=== PATIENT | male | born 1940 | race Caucasian/White ===

== ENCOUNTER → 2017-07-19 12:12 | Outpatient (CLI) | payer MEDICARE, BC, SELFPAY ==
[2017-07-19 14:59] LABS: Microalbumin:Creatinine Ratio 767.1 mg/g CRE (<30 mg/g CRE)
[2017-07-19 15:08] LABS: ALB/GLOB Ratio 0.9 RATIO (0.9-2.4); AST(SGOT) 17 U/L (15-37); Alanine Aminotransfer ALT/SGPT 26 U/L (16-61); Albumin, Serum 3.2 g/dL (3.2-5.0); Alkaline Phosphatase 114 U/L (45-117); Anion Gap 9 (5-15); BUN 21 mg/dL (7-18); BUN/Creat Ratio 18.4 RATIO (10-20); Calcium,Total 9.2 mg/dL (8.5-10.1); Chloride 108 mmol/L (98-107); Cholesterol 154 mg/dL (200); Creatinine, Serum 1.14 mg/dL (0.70-1.30); EST Glomerular Filtration Rate 66 mL/min (>60); Est Glom Filt Rate - Afr Amer 80 mL/min (>60); Ferritin 18 ng/mL (26-388); Globulin 3.6 g/dL (2.2-4.2); Glucose 146 mg/dL (74-106); High Density Lipoprotein 64 mg/dL; Iron Binding Capacity,Total 330 ug/dL (250-450); Magnesium 2.1 mg/dL (1.6-2.6); Potassium 3.5 mmol/L (3.5-5.1); Protein, Total 6.8 g/dL (6.4-8.2); Sodium Level 142 mmol/L (136-145); Triglycerides 222 mg/dL; Very Low Density Lipoprotein 44 mg/dL (5-40)
[2017-07-20 09:49] LABS: Vitamin B12 852 pg/mL (211-911)
== END ==
PROVIDERS: Family Provider Family Medicine; PCP Family Medicine; Visit Provider Family Medicine
DX: I10 Essential (primary) hypertension (principal); G25.81 Restless legs syndrome
CPT/HCPCS: 36415; 80053; 80061; 82043; 82570; 82607; 82728; 82746; 83550; 83735; 84443

== ENCOUNTER → 2017-10-02 13:09 | Outpatient (CLI) | payer MEDICARE, BC, SELFPAY ==
--- NOTE | 2017-10-02 13:28 | MRI_ITS ---
STUDY: MRI LUMBAR SPINE WITHOUT CONTRAST REASON FOR EXAM: Male, 77 years old. Low back pain and bilateral toe burning. TECHNIQUE: Standardized fat and water weighted pulse sequences were obtained in the sagittal and axial planes. COMPARISON: Radiographs of the lumbar spine dated October 22, 2015 and MRI of lumbar spine dated April 20, 2010. FINDINGS: T12-L1: There is mild annular disk bulge and osteophyte complex. There is mild degenerative arthropathy of the facet joints. Bilateral neuroforamina are narrowed without MR evidence for nerve impingement. There is no significant central canal stenosis. There is abnormal heterogeneous signal within the L1 vertebral body. This has both increased and decreased T2 signal and increased T1 signal. This may represent a mildly complex hemangioma. This appears to have been present on the previous MRI as well. Normal lumbar lordosis. There is no substantial scoliosis. Normal conus medullaris that terminates at the L1 level. L1-2: There is mild annular disk bulge and osteophyte complex. There is mild degenerative arthropathy of the facet joints. Bilateral neuroforamina are narrowed without MR evidence for nerve impingement. There is no significant central canal stenosis. L2-3: There is mild annular disk bulge and osteophyte complex. There is mild degenerative arthropathy of the facet joints. Bilateral neuroforamina are narrowed without MR evidence for nerve impingement. There is mild central canal stenosis. L3-4: There is a broad central disc protrusion. There is moderate acquired canal stenosis with possible impingement of cauda equina. There is mild degenerative arthropathy of facet joints. Neural foramina are moderately narrowed with questionable impingement of the L3 nerve roots at the neural foramina. L4-5: There is a broad central disc protrusion with mild central acquired canal stenosis. There is mild annular disk bulge and osteophyte complex. There is mild degenerative arthropathy of the facet joints. Bilateral neuroforamina are narrowed without MR evidence for nerve impingement. There is no significant central canal stenosis. L5-S1: There is mild annular disk bulge and osteophyte complex. There is mild degenerative arthropathy of the facet joints. Bilateral neuroforamina are narrowed with potential impingement of the right L5 nerve root at the neural foramen. There is no significant central canal stenosis. Normal visualized sacral ala. Normal visualized paraspinous soft tissue structures. There appears to be multiple left-sided renal cysts with largest measuring approximately 1.8 cm in greatest dimension. MRI/Spine Lumbar (Routine) IMPRESSION: 1. 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 This has changed in appearance since the previous MRI. 2. 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 Electronically Signed: Alexandria Truong MD at 6:06 EDT , Service support ,
== END ==
PROVIDERS: Family Provider Family Medicine; PCP Family Medicine; Visit Provider Anesthesiology Pain Medicine
DX: M54.5 Low back pain (principal); M79.606 Pain in leg, unspecified; R29.898 Other symptoms and signs involving the musculoskeletal system
CPT/HCPCS: 72148

== ENCOUNTER 2017-11-12 22:07 | Emergency (ER) | payer MEDICARE, BC, SELFPAY ==
[2017-11-12 22:08] VITALS: BP 148/93; PULSE 87; RESP 16; TEMP 36.9; O2SAT 98; BMI 27.7
--- NOTE | 2017-11-12 22:22 | EKG12_ITS ---
Test Reason : EDEMA Blood Pressure : / mmHG Vent. Rate : 072 BPM Atrial Rate : 072 BPM P-R Int : 172 ms QRS Dur : 086 ms QT Int : 376 ms P-R-T Axes : 056 043 060 degrees QTc Int : 411 ms Normal sinus rhythm Normal ECG Confirmed by MARÍA CALDERA, TIN ([id number]), purchase request editor JACEY HYMAN ([id number]) on 11/15/2017 2:38:22 PM Referred By: Confirmed By:TIN DANIEL MD
--- NOTE | 2017-11-12 22:25 | RAD_ITS ---
STUDY: X-RAY CHEST REASON FOR EXAM: Male, 77 years old. Chest pain TECHNIQUE: Single AP portable view of the chest. COMPARISON: 01/24/2017. FINDINGS: The lungs are clear and hyper expanded. There is no demonstrated pleural abnormality. Normal size heart. Normal mediastinum and hailey. Normal visualized pulmonary arteries. Normal visualized aortic arch and descending thoracic aorta. Normal visualized thoracic spine. Normal visualized ribs, clavicles, and shoulders. There is no demonstrated abnormality of the visualized soft tissue structures of the upper abdomen. RAD/Chest 1 View (Portable) IMPRESSION: Stable hyperinflation. No acute infiltrate. Electronically Signed: Axel Atkinson DO at 23:07 EDT , Service support ,
--- NOTE | 2017-11-12 22:29 | ED.DCSUM_ITS ---
- ER Visit Summary Date of Service: 11/12/17 Chief Complaint: Bilateral lower extremity swelling History of Present Illness: The patient is a 77 M presenting with bilateral lower extremity swelling. He states this has been ongoing for the past 3 days. He has a history of previous peripheral edema but it has never been this bad. He was taking Lasix previously. He was on Lasix 20 mg once a day. He ran out of his Lasix on Sunday. He then started taking Hygroton which he had left over from when he used to take it before he had started the Lasix. He has shortness of breath with exertion. He denies chest pain. Denies fever. Denies other complaints. Physical Examination: Vitals are stable. Patient is afebrile. Alert no acute distress. HEENT exam is unremarkable. Neck is supple. Lungs are clear and equal bilaterally. Heart is regular rate and rhythm. Abdomen is soft nontender nondistended. Extremities symmetric edema, nontender, normal distal pulse Skin is warm and dry. No focal neurologic deficit. Remainder of exam is unremarkable. Emergency Department Course and Treatment: CBC, chemistries unremarkable other than creatinine 1.35. Troponin is negative. EKG sinus rate is 72 unchanged from previous. Chest x-ray is no acute process. Bilateral venous Dopplers normal. Patient was able to ambulate in the ED with a pulse ox of 94% on room air. He was given Lasix in the emergency department. He is advised to follow- up with his primary care physician. Advised return to ED if worsening complaints. Disposition: Discharge home Impression: Peripheral edema This note was generated with [employer] dictation software. It may contain incorrect words, spelling, and punctuation that were not noted in review of the chart prior to signing ED Disposition - Plan for ED Patient: Chief Complaint: Edema Instructions: ED Leg Swelling Bilateral Prescriptions: Furosemide [Lasix] 20 mg PO DAILY #14 tablet Referrals: Kevon Harrell MD [Primary Care Provider] -
--- NOTE | 2017-11-12 22:30 | US_ITS ---
STUDY: VENOUS DOPPLER ULTRASOUND - BILATERAL LOWER EXTREMITIES REASON FOR EXAM: Male, 77 years old. BILAT LEG EDEMA/ SWELLING TECHNIQUE: Ultrasound evaluation of the deep vein system to include rosen-scale imaging and compression was performed. Rosen-scale imaging and Doppler sonographic evaluation, including duplex spectral analysis and qualitative color flow sonography, was performed. COMPARISON: None. FINDINGS: RIGHT LEG Common Femoral Vein: Normal compression, spontaneity and augmentation. Normal color Doppler. Common Femoral Vein/Greater Saphenous Junction: Normal compression, spontaneity and augmentation. Normal color Doppler. Deep Femoral Vein: Normal compression, spontaneity and augmentation. Normal color Doppler. Femoral Proximal: Normal compression, spontaneity and augmentation. Normal color Doppler. Femoral Middle: Normal compression, spontaneity and augmentation. Normal color Doppler. Femoral Distal: Normal compression, spontaneity and augmentation. Normal color Doppler. Popliteal Vein: Normal compression, spontaneity and augmentation. Normal color Doppler. Posterior Tibial Vein: Normal compression, spontaneity and augmentation. Normal color Doppler. Peroneal Vein: Normal compression, spontaneity and augmentation. Normal color Doppler. LEFT LEG Common Femoral Vein: Normal compression, spontaneity and augmentation. Normal color Doppler. Common Femoral Vein/Greater Saphenous Junction: Normal compression, spontaneity and augmentation. Normal color Doppler. Deep Femoral Vein: Normal compression, spontaneity and augmentation. Normal color Doppler. Femoral Proximal: Normal compression, spontaneity and augmentation. Normal color Doppler. Femoral Middle: Normal compression, spontaneity and augmentation. Normal color Doppler. Femoral Distal: Normal compression, spontaneity and augmentation. Normal color Doppler. Popliteal Vein: Normal compression, spontaneity and augmentation. Normal color Doppler. Posterior Tibial Vein: Normal compression, spontaneity and augmentation. Normal color Doppler. Peroneal Vein: Normal compression, spontaneity and augmentation. Normal color Doppler. US/Venous Duplex Imag/Tristin Extrem IMPRESSION: Normal venous Doppler ultrasound of the bilateral lower extremities. Electronically Signed: Marlon Cruz MD at 23:22 EDT , Service support ,
[2017-11-12 23:00] VITALS: BP 164/85; PULSE 76; RESP 14; O2SAT 96
[2017-11-12 23:00] LABS: Absolute Lymphocyte Count 3.25 X10^3/ul (0.83-4.51); Absolute Neutrophil Count 6.1 X10^3/uL (2.0-7.7); Basophil# 0.05 X10^3/uL; Basophil% 0.5 % (0-1); Eosinophils% 1.9 % (0-5); Hematocrit 44.1 % (40-54); Hemoglobin 15.2 g/dl (13.0-16.5); Lymphocyte # 3.25 X10^3/ul (4.0); Lymphocyte % 30.2 % (19-41); Mean Corp Hgb Conc 34.5 g/gl (32-36); Mean Corpuscular Hgb 30.5 pg (27.0-32.0); Mean Corpuscular Volume 88.6 fL (80-94); Mean Platelet Vol. 10.2 fl (6.2-12.0); Monocyte# 1.13 X10^3/uL; Monocyte% 10.5 % (0-10); Neutrophil % 56.6 % (47-70); Platelet Count 199 K/mm3 (150-450); RBC Distribution Width SD 51.1 fl (35.1-43.9); Red Blood Count 4.98 M/mm3 (4.6-6.2); White Blood Count 10.8 K/mm3 (4.4-11.0)
[2017-11-12 23:01] LABS: POSITIVE COUNT NO; POSITIVE DIFFERENTIAL NO; POSITIVE MORPHOLOGY NO
[2017-11-12 23:14] LABS: Anion Gap 5 (5-15); BUN 16 mg/dL (7-18); BUN/Creat Ratio 11.9 RATIO (10-20); Calcium,Total 9.5 mg/dL (8.5-10.1); Chloride 107 mmol/L (98-107); Creatinine, Serum 1.35 mg/dL (0.70-1.30); EST Glomerular Filtration Rate 54 mL/min (>60); Est Glom Filt Rate - Afr Amer 66 mL/min (>60); Glucose 85 mg/dL (74-106); Potassium 3.6 mmol/L (3.5-5.1); Sodium Level 142 mmol/L (136-145)
[2017-11-12 23:48] VITALS: O2SAT 95
--- NOTE | 2017-11-13 00:28 | ED.DEP ---
ED Disposition - Plan for ED Patient: Chief Complaint: Edema Instructions: ED Leg Swelling Bilateral Prescriptions: Furosemide [Lasix] 20 mg PO DAILY #14 tablet Referrals: Kevon Harrell MD [Primary Care Provider] -
[2017-11-13 00:41] LABS: BNP,B-Type NATRIURETIC PEPTIDE 19.7 pg/mL (0-100)
[2017-11-13] MEDS: Furosemide 20 MG Tablet PO (00:41)
[2017-11-13 00:42] VITALS: BP 141/82; PULSE 74; RESP 16; O2SAT 96
[2017-11-13 14:38] LABS: Albumin, Serum 3.4 g/dL (3.2-5.0)
== END 2017-11-13 00:48 | disposition home or self-care (01) ==
LOC: ED 22:40
PROVIDERS: Emergency Provider Emergency Medicine; Family Provider Family Medicine; PCP Family Medicine
DX: R60.0 Localized edema (principal); I11.0 Hypertensive heart disease with heart failure; I50.9 Heart failure, unspecified; J44.9 Chronic obstructive pulmonary disease, unspecified; E78.00 Pure hypercholesterolemia, unspecified; Z85.118 Personal history of other malignant neoplasm of bronchus and lung; Z72.0 Tobacco use; Z79.51 Long term (current) use of inhaled steroids; Z79.82 Long term (current) use of aspirin; Z79.84 Long term (current) use of oral hypoglycemic drugs; Z79.899 Other long term (current) drug therapy
CPT/HCPCS: 71045; 80048; 82040; 83880; 84484; 85025; 93005; 93970; 99285

== ENCOUNTER → 2017-11-16 12:11 | Outpatient (CLI) | payer MEDICARE, BC, SELFPAY ==
[2017-11-16 13:44] LABS: Vitamin B12 676 pg/mL (211-911)
[2017-11-16 13:48] LABS: Anion Gap 9 (5-15); Chloride 104 mmol/L (98-107); Potassium 3.3 mmol/L (3.5-5.1); Sodium Level 141 mmol/L (136-145); Thyroid Stim Hormone (TSH) 1.17 uIU/mL (0.358-3.74)
[2017-11-23 02:40] LABS: Rapid Plasmin Reagin (RPR) NONREACTIVE (NONREACTIVE)
== END ==
PROVIDERS: Family Provider Family Medicine; PCP Family Medicine; Visit Provider Psychiatry & Neurology Neurology
DX: R41.3 Other amnesia (principal)
CPT/HCPCS: 36415; 80051; 82607; 84443; 86592

== ENCOUNTER → 2017-11-22 15:56 | Outpatient (CLI) | payer MEDICARE, BC, SELFPAY ==
--- NOTE | 2017-11-22 16:45 | MRI_ITS ---
STUDY: MRI BRAIN WITHOUT CONTRAST REASON FOR EXAM: Male, 77 years old. Memory loss for 10 years TECHNIQUE: Standardized multiplanar fat and water weighted pulse sequences were obtained. COMPARISON: None. FINDINGS: Mild atrophy and moderate periventricular white matter ischemic changes without mass effect or restricted diffusion. Small old lacunar infarct in left basal ganglia. Normal thalami. There is no extra-axial fluid accumulation. Normal flow voids within the major intracranial circulation suggesting patency by spin echo criteria. Normal sella turcica, pituitary gland, infundibular stalk, optic chiasm and hypothalamus. Normal tectal plate and pineal gland. Normal midbrain, casandra and medulla. Normal cerebellum. Normal basal cisterns. Normal bilateral temporal bones. Normal bilateral internal auditory canals. No demonstrated orbital abnormality, within the constraints of a routine brain study. Normal visualized paranasal sinuses. Normal calvarium and skull base. Normal visualized soft tissue structures. Normal visualized upper cervical spine. MRI/Brain without Contrast IMPRESSION: Mild atrophy and moderate periventricular white matter ischemic changes without evidence for acute infarct.. Small old left lacunar infarct Electronically Signed: Osman Viera MD at 17:14 EDT , Service support ,
== END ==
PROVIDERS: Family Provider Family Medicine; PCP Family Medicine; Visit Provider Psychiatry & Neurology Neurology
DX: R41.3 Other amnesia (principal); S06.0X9A Concussion with loss of consciousness of unspecified duration, initial encounter
CPT/HCPCS: 70551

== ENCOUNTER → 2018-02-21 07:35 | Outpatient (CLI) | payer MEDICARE, BC, SELFPAY ==
[2018-02-21 09:09] LABS: Absolute Lymphocyte Count 2.07 X10^3/ul (0.83-4.51); Absolute Neutrophil Count 5.1 X10^3/uL (2.0-7.7); Basophil# 0.05 X10^3/uL; Basophil% 0.6 % (0-1); Eosinophil# 0.15 X10^3/uL; Eosinophils% 1.8 % (0-5); Hematocrit 50.4 % (40-54); Lymphocyte # 2.07 X10^3/ul (4.0); Lymphocyte % 25.3 % (19-41); Mean Corp Hgb Conc 33.7 g/gl (32-36); Mean Corpuscular Hgb 30.3 pg (27.0-32.0); Mean Corpuscular Volume 89.8 fL (80-94); Monocyte# 0.84 X10^3/uL; Monocyte% 10.3 % (0-10); Neutrophil # 5.07 X10^3/uL (2.7-7.7); Neutrophil % 61.9 % (47-70); Platelet Count 210 K/mm3 (150-450); RBC Distribution Width CV 14.5 % (11.6-14.6); RBC Distribution Width SD 47.4 fl (35.1-43.9); Red Blood Count 5.61 M/mm3 (4.6-6.2); White Blood Count 8.2 K/mm3 (4.4-11.0)
[2018-02-21 09:12] LABS: Differential Indicated SCAN CRITERIA MET; POSITIVE COUNT NO; POSITIVE DIFFERENTIAL NO; POSITIVE MORPHOLOGY YES
[2018-02-21 09:37] LABS: Vitamin B12 623 pg/mL (211-911)
[2018-02-21 10:11] LABS: Ferritin 36 ng/mL (26-388); Iron Binding Capacity,Total 284 ug/dL (250-450)
== END ==
PROVIDERS: Family Provider Family Medicine; PCP Family Medicine; Referring Provider Family Medicine; Visit Provider Family Medicine
DX: D51.8 Other vitamin B12 deficiency anemias (principal)
CPT/HCPCS: 36415; 82607; 82728; 82746; 83550; 85025

== ENCOUNTER → 2018-05-23 13:44 | Outpatient (CLI) | payer MEDICARE, BC, SELFPAY ==
[2018-05-23 15:39] LABS: Absolute Lymphocyte Count 2.76 X10^3/ul (0.83-4.51); Absolute Neutrophil Count 5.2 X10^3/uL (2.0-7.7); Basophil# 0.07 X10^3/uL; Basophil% 0.8 % (0-1); Eosinophil# 0.14 X10^3/uL; Eosinophils% 1.5 % (0-5); Hematocrit 49.4 % (40-54); Hemoglobin 16.8 g/dl (13.0-16.5); Lymphocyte # 2.76 X10^3/ul (4.0); Lymphocyte % 30.2 % (19-41); Mean Corpuscular Hgb 30.6 pg (27.0-32.0); Mean Platelet Vol. 11.6 fl (6.2-12.0); Monocyte# 0.91 X10^3/uL; Neutrophil # 5.24 X10^3/uL (2.7-7.7); Neutrophil % 57.3 % (47-70); Platelet Count 215 K/mm3 (150-450); RBC Distribution Width CV 15.4 % (11.6-14.6); Red Blood Count 5.49 M/mm3 (4.6-6.2); White Blood Count 9.1 K/mm3 (4.4-11.0)
[2018-05-23 15:40] LABS: POSITIVE COUNT NO; POSITIVE DIFFERENTIAL NO; POSITIVE MORPHOLOGY NO
[2018-05-23 15:58] LABS: ALB/GLOB Ratio 1.2 RATIO (0.9-2.4); AST(SGOT) 18 U/L (15-37); Alanine Aminotransfer ALT/SGPT 26 U/L (16-61); Albumin, Serum 3.7 g/dL (3.2-5.0); Alkaline Phosphatase 123 U/L (45-117); Anion Gap 10 (5-15); BUN 18 mg/dL (7-18); BUN/Creat Ratio 17.1 RATIO (10-20); Calcium,Total 9.6 mg/dL (8.5-10.1); Chloride 106 mmol/L (98-107); Creatinine, Serum 1.05 mg/dL (0.70-1.30); EST Glomerular Filtration Rate 72 mL/min (>60); Est Glom Filt Rate - Afr Amer 88 mL/min (>60); Ferritin 37 ng/mL (26-388); Glucose 87 mg/dL (74-106); Magnesium 2.3 mg/dL (1.6-2.6); Potassium 3.8 mmol/L (3.5-5.1); Protein, Total 6.7 g/dL (6.4-8.2); Sodium Level 145 mmol/L (136-145)
[2018-05-30 10:11] LABS: 24HR. Urine Creatinine 1.42 g/24 HR (0.90-2.10)
[2018-06-05 09:00] LABS: 24 Hour Urine Protein 851.9 mg/24HR (<150 MG/24HR); 24HR. UA Prot. Total Volume 925 mL; Urine Protein (24 Hour) 92.1 mg/dL (<11.9)
== END ==
PROVIDERS: Family Provider Family Medicine; PCP Family Medicine; Visit Provider Family Medicine
DX: J44.9 Chronic obstructive pulmonary disease, unspecified (principal); G25.81 Restless legs syndrome; I10 Essential (primary) hypertension; E11.29 Type 2 diabetes mellitus with other diabetic kidney complication
CPT/HCPCS: 36415; 80053; 81050; 82043; 82570; 82728; 83735; 84156; 84443; 85025

== ENCOUNTER → 2018-05-30 08:58 | Outpatient (CLI) | payer MEDICARE, BC, SELFPAY | LOC: MFPLAB 08:59 → LABSPEC 09:00 | PROVIDERS: Family Provider Family Medicine; PCP Family Medicine; Visit Provider Family Medicine | DX: Z53.9 Procedure and treatment not carried out, unspecified reason (principal) ==

== ENCOUNTER 2018-06-26 19:07 | Inpatient (IN) | payer MEDICARE, BC, SELFPAY ==
[2018-06-26] VITALS (7 sets, daily range): BP systolic 102–165; BP diastolic 50–89; PULSE 88–110; RESP 14–20; TEMP 37.7–38.6; O2SAT 94–97; BMI 28.6; BMI 27.0
--- NOTE | 2018-06-26 19:39 | EKG12_ITS ---
Test Reason : PALPITATIONS Blood Pressure : / mmHG Vent. Rate : 104 BPM Atrial Rate : 104 BPM P-R Int : 250 ms QRS Dur : 082 ms QT Int : 312 ms P-R-T Axes : 077 059 078 degrees QTc Int : 410 ms Sinus tachycardia with 1st degree A-V block Otherwise normal ECG Confirmed by MARÍA CALDERA, TIN ([id number]), senior technical editor JACEY HYMAN ([id number]) on 07/02/2018 11:14:53 AM Referred By: SUN DUARTE Confirmed By:TIN DANIEL MD
--- NOTE | 2018-06-26 19:39 | RAD_ITS ---
STUDY: X-RAY CHEST REASON FOR EXAM: Male, 78 years old. Shortness of breath and cough. Fever x3 days TECHNIQUE: Single frontal view of the chest. COMPARISON: November 12, 2017 FINDINGS: Lungs are hyperaerated. There are increased interstitial markings. There is no demonstrated pleural abnormality. Normal size heart. Normal mediastinum and hailey. Normal visualized pulmonary arteries. Normal visualized aortic arch and descending thoracic aorta. Normal visualized thoracic spine. Normal visualized ribs, clavicles, and shoulders. There is no demonstrated abnormality of the visualized soft tissue structures of the upper abdomen. RAD/Chest 1 View (Portable) IMPRESSION: COPD Electronically Signed: Sam Gregory MD at 20:08 EST , Service support ,
--- NOTE | 2018-06-26 19:41 | ED.VISSUMM ---
- ER Visit Summary Date of Service: 06/26/18 Chief Complaint: Shortness of breath, cough History of Present Illness: The patient is a 78 M presenting with shortness of breath, cough. Patient states this started around 3 AM this morning. He complains of fever, shortness of breath, cough. He has diffuse myalgias. He did receive a flu shot this year. He has a history of COPD, not on home O2. He has a history of previous lung cancer. He states he finished radiation a few years ago. He is a smoker. He denies chest pain or abdominal pain Physical Examination: Vitals are stable. Temperature 101.4. alert no acute distress. HEENT exam dry mucous membranes Neck is supple. Lungs are wheezing bilaterally. Heart is regular rate and rhythm. Abdomen is soft nontender nondistended. Extremities are unremarkable. Skin is warm and dry. No rash No focal neurologic deficit. Remainder of exam is unremarkable. Emergency Department Course and Treatment: Patient given IV fluids, Tylenol, albuterol, Atrovent aerosols. CBC, chemistries unremarkable. Urinalysis shows 5-10 white blood cells. Urine culture was sent. Troponin is negative. Lactic acid 2.0. EKG is sinus tachycardia rate of 104. Chest x-ray shows COPD. Influenza was negative. Despite his negative influenza test, I feel he likely has influenza which is exacerbating his COPD. He continues to have wheezing following aerosol treatments. He was given Solu-Medrol IV. Discussed with the hospitalist for admission. Disposition: Admission Impression: COPD exacerbation, viral illness This note was generated with [employer] dictation software. It may contain incorrect words, spelling, and punctuation that were not noted in review of the chart prior to signing ED Disposition - Plan for ED Patient: Referrals: Kevon Harrell MD [Primary Care Provider] -
[2018-06-26] MEDS: Albuterol 2.5 MG/3 ML VIAL.NEB. INHALATION ×2 (19:49→20:25)
[2018-06-26] MEDS: Ipratropium/Albuterol Sulfate 3 ML AMPUL.NEB INHALATION (19:49)
[2018-06-26] MEDS: 0.9% Normal Saline 1,000 ML 999 ML IV (19:49)
[2018-06-26] MEDS: Acetaminophen 500 MG Tablet 1000 MG PO (19:49)
[2018-06-26 19:51] LABS: Absolute Lymphocyte Count 1.06 X10^3/ul (0.83-4.51); Absolute Neutrophil Count 6.6 X10^3/uL (2.0-7.7); Basophil# 0.08 X10^3/uL; Basophil% 0.9 % (0-1); Eosinophil# 0.06 X10^3/uL; Eosinophils% 0.7 % (0-5); Hematocrit 46.7 % (40-54); Hemoglobin 16.3 g/dl (13.0-16.5); Lymphocyte # 1.06 X10^3/ul (4.0); Lymphocyte % 11.9 % (19-41); Mean Corp Hgb Conc 34.9 g/gl (32-36); Mean Corpuscular Hgb 31.2 pg (27.0-32.0); Mean Corpuscular Volume 89.3 fL (80-94); Mean Platelet Vol. 11.6 fl (6.2-12.0); Monocyte# 1.08 X10^3/uL; Monocyte% 12.1 % (0-10); Neutrophil % 74.3 % (47-70); POSITIVE COUNT NO; POSITIVE DIFFERENTIAL NO; POSITIVE MORPHOLOGY NO; Platelet Count 190 K/mm3 (150-450); RBC Distribution Width CV 15.4 % (11.6-14.6); RBC Distribution Width SD 50.3 fl (35.1-43.9); Red Blood Count 5.23 M/mm3 (4.6-6.2); White Blood Count 8.9 K/mm3 (4.4-11.0)
[2018-06-26 20:08] LABS: Anion Gap 8 (5-15); BUN 18 mg/dL (7-18); BUN/Creat Ratio 13.8 RATIO (10-20); Chloride 105 mmol/L (98-107); EST Glomerular Filtration Rate 57 mL/min (>60); Est Glom Filt Rate - Afr Amer 68 mL/min (>60); Estimated Creatinine Clearance 46.08 ml/min; Glucose 135 mg/dL (74-106); Potassium 3.3 mmol/L (3.5-5.1); Sodium Level 141 mmol/L (136-145)
[2018-06-26 20:42] LABS: Bacteria 0 SEEN /hpf (None Seen); Mucous, Urine 0 SEEN /hpf (<or=2+); Red Blood Cells-Urine 0 SEEN /hpf (0-5); Squamous Epithelial Cells - UA 0 SEEN /hpf (0-5)
[2018-06-26 20:43] LABS: Color, Urine Yellow (Yellow); Glucose, Dipstick Normal (Normal); Ketone-Dipstick Negative (Negative); Leukocyte Esterase-Dipstick 100 /ul (Negative); Nitrite-Dipstick Negative (Negative); Occult Blood-Urine 25 /ul (Negative); Protein-Dipstick 100 mg/dl (Negative); Specific Gravity, Urine 1.015 (1.002-1.030); Urine Bilirubin Dipstick Negative (Negative); Urine Clarity Clear (Clear); Urine Urobilinogen Normal (Normal)
[2018-06-26 20:49] LABS: White Blood Cells 5-10 SEEN /hpf (0-5)
[2018-06-26] MEDS: MethylPREDNISolone 125 MG/2 ML Vial IV (21:29)
--- NOTE | 2018-06-26 21:30 | HP.PCM_ITS ---
Problem List (1) Viral syndrome Status: Acute (2) COPD exacerbation Status: Acute (3) Hypokalemia Status: Acute (4) Diabetes mellitus, type II Status: Chronic Qualifiers: Diabetes mellitus long-term insulin use: without long-term use Diabetes mellitus complication status: with unspecified complications Qualified Code(s): E11.8 - Type 2 diabetes mellitus with unspecified complications (5) Personal history of skin cancer Status: Chronic (6) Tobacco use Status: Chronic (7) COPD (chronic obstructive pulmonary disease) Status: Chronic Qualifiers: COPD type: unspecified COPD Qualified Code(s): J44.9 - Chronic obstructive pulmonary disease, unspecified (8) HLD (hyperlipidemia) Status: Chronic Qualifiers: Hyperlipidemia type: pure hypercholesterolemia Qualified Code(s): E78.00 - Pure hypercholesterolemia, unspecified; E78.0 - Pure hypercholesterolemia (9) HTN (hypertension) Status: Chronic Qualifiers: Hypertension type: essential hypertension Qualified Code(s): I10 - Essential (primary) hypertension (10) Stage 1 lung cancer, RUL mass Status: Chronic History of Present Illness Date of Admission: 06/26/18 Chief Complaint: Cough, Dyspnea, Headache, Myalgia, Arthralgia. The patient is a 78 y/o M w/ PMHx: Tobacco use, Chronic COPD, History of Lung Cancer in remission, HTN, HLD, Diabetes mellitus type II, History Thyroid Nodules who presents to the [facility] ED on 06/26/18 with history of recent onset upper respiratory symptoms starting approximately 4-5 days prior however progressively worsening and is notable onset arthralgias, myalgias, headache, worsened congestion and dyspnea with wheezing as well as onset fever and chills starting approximately 3 AM on day of ED presentation. Work-up in the ED included T 99.9, heart rate 104, BP 102/50, respiratory rate 20, 95% on 2 L nasal cannula, CBC with WC 8.9, hemoglobin 16.3, platelet 190 without market shift, BMP with potassium 3.3, glucose 135, lactic acid 2.0, troponin < 0.015, UA not acute findings, chest x-ray with chronic changes with no acute cardiopulmonary findings, negative rapid influenza with pending respiratory viral panel. In the ED patient administered normal saline, Solu-Medrol, DuoNeb and albuterol therapies. Past Medical History Past Medical History (Chronic Problems): Chronic Problems (Last Updated 09/26/17 @ 12:38 by Cesilia Stephens) Diabetes mellitus, type II (Chronic) Cheek mass (Chronic) 6 mm soft tissue mass left supramedial cheek by lateral nose Personal history of skin cancer (Chronic) Smoker (Chronic) Tobacco use (Chronic) COPD (chronic obstructive pulmonary disease) (Chronic) HLD (hyperlipidemia) (Chronic) HTN (hypertension) (Chronic) Stage 1 lung cancer, RUL mass (Chronic) Smoker (Chronic) History of basal cell carcinoma (Chronic) BCC left upper neck by earlobe (Chronic) Medical History: Medical History (Last Updated 09/26/17 @ 12:38 by Cesilia Stephens) Actinic keratosis L57.0 SUPERIOR HELICAL RIM RIGHT EAR Arthritis M19.90 COPD (chronic obstructive pulmonary disease) J44.9 Diabetes mellitus E11.9 Edema R60.9 Fever blister B00.1 History of alcohol abuse Z87.898 History of chicken pox Z86.19 Keratosis L57.0 PIGMENTED SEBORRHEIC KERATOSIS LEFT POSTERIOR EAR Kidney stones N20.0 Lung cancer C34.90 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 LEFT NASAL TIP LEFT SUPRAMEDIAL CHEEK LEFT UPPER NECK BY EARLOBE, MULTIFOCAL AND SUPERFICIAL Sinus problem J34.9 Stroke I63.9 Stroke I63.9 Tonsillitis J03.90 High blood pressure I10 Allergies BEE STINGS Allergy (Severe, Uncoded 06/26/18 19:14) Anaphylaxis Home Medications: Ambulatory Orders Medication Instructions Recorded Atorvastatin Calcium [Lipitor] 10 mg PO DAILY 12/22/13 Losartan/Hydrochlorothiazide 1 tab PO DAILY 12/22/13 [Hyzaar 50-12.5 Tablet] Metformin HCl [Glucophage] 500 mg PO DAILY 12/22/13 Multivitamins,Therapeutic 1 tab PO DAILY 12/22/13 [Multivitamin] Latanoprost 0.005% [Xalatan 1 drp LEFT EYE QHS 01/07/15 Opthalmic] Aspirin [Aspirin, Baby] 81 mg PO DAILY@0800 06/30/16 budesonide-formoterol HFA 160 2 puff INHALATION BID 09/26/17 mcg-4.5 mcg/actuation aerosol inhaler epinephrine 0.3 mg/0.3 mL 0.3 mg IM ONCE 09/26/17 injection, auto-injector ropinirole 1 mg tablet 1.5 mg PO DINNER 09/26/17 Ropinirole HCl [Requip] 3 mg PO BID 11/12/17 Albuterol IH (ProAir) [Proair Hfa] 2 puff INHALATION 4X/DAY 06/26/18 Furosemide [Lasix] 20 mg PO DAILY 06/26/18 Magnesium Oxide [Mag-Ox 400] 400 mg PO DAILY 06/26/18 Potassium Citrate [Urocit-K] 5 meq PO DAILY 06/26/18 Surgical History: Surgical History (Last Updated 09/26/17 @ 14:59 by Cesilia Stephens) HYDROCELE History of basal cell carcinoma excision Z98.890, Z85.828 RECONSTRUCTION 10 MM BASAL CELL CARCINOMA WOUND DEFORMITY LEFT NASAL TIP WITH BILOBED TRANSPOSITION SKIN FLAP RECONSTRUCTION - 03/01/09 EXCISION 1.8 CM PIGMENTED BASAL CELL CARCINOMA LEFT UPPER NECK BY EARLOBE WITH RHOMBOID TRANSPOSITION SKIN FLAP RECONSTRUCTION (24.5 CM2) - 01/14/15 History of excision of lesion Z98.890, Z87.2 EXCISION 7 MM PIGMENTED LESION LEFT NASAL TIP AND EXCISION 12 MM LESION LEFT LATERAL ABDOMINAL WALL WITH 4 CM CLOSURE 02/22/09 EXCISION 6 MM PIGMENTED LESION LEFT SUPRAMEDIAL CHEEK WITH 2 CM LAYERED CLOSURE AND EXCISION 5 MM PIGMENTED LESION LEFT POSTERIOR EAR WITH 15 MM LAYERED CLOSURE AND PARTIAL EXCISION 18 MM PIGMENTED LESION LEFT UPPER NECK BY EARLOBE WITH 3 CM LAYERED CLOSURE AND INTRADERMAL EXCISION 6 MM ACTINIC LESION SUPERIOR HELICAL RIM RIGHT EAR 08/27/14 History of eye surgery Z98.890 History of right knee surgery Z98.890 Sebaceous cyst of right axilla L72.3 Soft tissue mass M79.9 EXCISION SOFT TISSUE MASS RIGHT UPPER BACK Surgical History: - - R hydrocele surgery, several basal cell CA skin removal, removal of cyst right knee. Psychiatric History: No pertinent psych hx Lives: Alone Smoking Status: Current every day smoker - Patient continues to smoke 1 pack/day cigarette tobacco usage. Tobacco Use: Cigarettes Alcohol: None - Eyes any alcohol use or history but in prior notes possible alcohol abuse noted. Drugs: None - *Family History Maternal Family History: Family History (Last Updated 09/26/17 @ 12:19 by Cesilia Stephens) Father Heart disease Hypertension CVA (cerebral vascular accident) Grandmother Cancer Grandfather CVA (cerebral vascular accident) History Items: COPD Paternal Family History: Family History (Last Updated 09/26/17 @ 12:19 by Cesilia Stephens) Father Heart disease Hypertension CVA (cerebral vascular accident) Grandmother Cancer Grandfather CVA (cerebral vascular accident) History Items: Heart Disease, Hypertension, Stroke Review of Systems Constitutional: Reports: Anorexia, Chills, Fever, Malaise, Weakness, Fatigue. Denies: Weight Change HEENT: Reports: Head Aches, Post Nasal Drip, Sinus Congestion, Sinus Drainage, Sore Throat Cardiovascular: Denies: Chest Pain, Palpitations Respiratory: Reports: Cough, Shortness of Breath, Shortness of breath at rest, Shortness of breath upon exertion, Sputum production, Wheezing Gastrointestinal: Denies: Abdominal Pain, Nausea, Vomiting Genitourinary: Denies: Dysuria Musculoskeletal: Reports: Joint Pain, Muscle pain. Denies: Joint Tenderness Skin: Reports: Skin Changes. Denies: Rash, Wounds Neurological: Denies: Numbness, Tingling, Focal weakness Psychiatric: Denies: Anxiety, Depression, Homicidal Ideations, Suicidal Ideations Hematologic/ Lymphatic: Denies: Easy Bruising, Easy Bleeding VTE Information - Inpt Only VTE Present on Admission: No VTE Mechan Device Prophylaxis: SCD's VTE Pharm Prophylaxis ordered?: Yes Patient Problems: Active and Suspected Problems (Last Updated 09/26/17 @ 12:38 by Cesilia Stephens) Viral syndrome (Acute) COPD exacerbation (Acute) Hypokalemia (Acute) Subjective: Seated upright in ED bed, fatigued appearance, no acute distress. Objective: Physical Examination: General: awake, alert, oriented x 3 and cooperative, seated upright in the ED bed in no apparent distress, fatigued and ill-appearing. Skin: normal color, turgor, no icterus, cyanosis. HEENT: AT/NC, EOMI, PERRLA, dry MM, no carotid bruits or JVD noted. Lungs: Diffusely diminished breath sounds, mildly rhonchorous, and expiratory wheezing noted, moderate effort. Heart: Regular rate and rhythm; no gallop, rub audible. Abdomen: soft, NTTP, ND, normal BS, no HSM. Extremities: no cyanosis, clubbing, bilateral lower extremity mild ankle edema. Neurological: patient awake, alert, oriented x 3; cognitive function intact; pupils equally reactive to light and accomodation; cranial nerves II-XII grossly normal, moving all 4 extremities, no focal deficits, strength moderately to severely globally decreased secondary to acute presentation. Psychiatric: affect appears fatigued, no acute evidence of depressive or anxiety feelings. - Physical Exam Vital Signs Temp Pulse Resp BP Pulse Ox 99.9 F H 104 H 14 145/87 H 95 06/26/18 21:00 06/26/18 21:00 06/26/18 21:00 06/26/18 20:26 06/26/18 21:00 Oxygen Flow Rate (L/min) 2 Oxygen Delivery Method Nasal Cannula Weight: 193 lb 12.581 oz Body Mass Index (BMI) 28.6 Finger Stick Blood Glucose 115 Microbiology Past 72 Hours 06/26/18 19:50 Influenza Types A,B Direct FA (ASHLEY) - Final Mucosa - Nose Laboratory Tests Past 24 Hrs 06/26/18 06/26/18 06/26/18 19:10 19:10 19:10 WBC 8.9 RBC 5.23 Hgb 16.3 Hct 46.7 MCV 89.3 MCH 31.2 MCHC 34.9 RDW 15.4 H RDW Differential 50.3 H Plt Count 190 MPV 11.6 Immature Gran % (Auto) 0.100 Neut % (Auto) 74.3 H Lymph % (Auto) 11.9 L [place] % (Auto) 12.1 H Eos % (Auto) 0.7 Baso % (Auto) 0.9 Absolute Neuts (auto) 6.6 Absolute Lymphs (auto) 1.06 Total Counted Not Reportable Sodium 141 Potassium 3.3 L Chloride 105 Carbon Dioxide 28.0 Anion Gap 8 BUN 18 Creatinine 1.30 Estim Creat Clear Calc 46.08 Est GFR (MDRD) Af Amer 68 Est GFR (MDRD) Non-Af 57 L BUN/Creatinine Ratio 13.8 Glucose 135 H Lactic Acid 2.0 Calcium 9.0 Troponin I < 0.015 Urine Color Urine Clarity Urine pH Ur Specific [place] Urine Protein Urine Glucose (UA) Urine Ketones Urine Occult Blood Urine Nitrite Urine Bilirubin Urine Urobilinogen Ur Leukocyte Esterase Urine RBC Urine WBC Ur Squamous Epith Cells Urine Bacteria Urine Mucus 06/26/18 20:26 WBC RBC Hgb Hct MCV MCH MCHC RDW RDW Differential Plt Count MPV Immature Gran % (Auto) Neut % (Auto) Lymph % (Auto) [place] % (Auto) Eos % (Auto) Baso % (Auto) Absolute Neuts (auto) Absolute Lymphs (auto) Total Counted Sodium Potassium Chloride Carbon Dioxide Anion Gap BUN Creatinine Estim Creat Clear Calc Est GFR (MDRD) Af Amer Est GFR (MDRD) Non-Af BUN/Creatinine Ratio Glucose Lactic Acid Calcium Troponin I Urine Color Yellow Urine Clarity Clear Urine pH 7.0 Ur Specific [place] 1.015 Urine Protein 100 H Urine Glucose (UA) Normal Urine Ketones Negative Urine Occult Blood 25 H Urine Nitrite Negative Urine Bilirubin Negative Urine Urobilinogen Normal Ur Leukocyte Esterase 100 H Urine RBC 0 SEEN Urine WBC 5-10 SEEN Ur Squamous Epith Cells 0 SEEN Urine Bacteria 0 SEEN Urine Mucus 0 SEEN Assessment/Plan All Active Problems (Last Updated 09/26/17 @ 12:38 by Cesilia Stephens) Viral syndrome (Acute) COPD exacerbation (Acute) Hypokalemia (Acute) Shortness of breath (Acute) The patient is a 78 y/o M w/ PMHx: Tobacco use, Chronic COPD, History of Lung Cancer in remission, HTN, HLD, Diabetes mellitus type II, History Thyroid Nodules who presents to the [facility] ED on 06/26/18 with history of recent onset upper respiratory symptoms starting approximately 4-5 days prior however progressively worsening and is notable onset arthralgias, myalgias, headache, worsened congestion and dyspnea with wheezing as well as onset fever and chills starting approximately 3 AM on day of ED presentation. (1) Acute on chronic COPD exacerbation suspected secondary to Acute Viral Syndrome: Work-up in the ED included T 99.9, heart rate 104, BP 102/50, respiratory rate 20, 95% on 2 L nasal cannula, CBC with WC 8.9, hemoglobin 16.3, platelet 190 without market shift, BMP with potassium 3.3, glucose 135, lactic acid 2.0, troponin < 0.015, UA not acute findings, chest x-ray with chronic changes with no acute cardiopulmonary findings, negative rapid influenza with pending respiratory viral panel. Will admit to [facility], continue to hydrate, maintain on oxygen with wean as tolerated to room air, continue ATC duonebs, PRN albuterol, IV methylprednisolone, HOB, IS parameters. (2) Hypokalemia: Admission K+ 3.3, supplementation given, repeat level in AM. (3) Diabetes mellitus type II: Hold oral home regimen, ADA diet, accu checks w/ ISS. (4) Tobacco Abuse: Encouraged cessation, inpatient consultation per RT, NR if desired. (5) Hypertension: Given presentation with recent poor oral intake and possibly acute viral syndrome will temporarily hold diuretics, continue to hydrate, in interim PRN hydralazine. (6) Hyperlipidemia: Continue home statin regimen. (7) History of lung cancer: Stable, remission. (8) DVT prophylaxis: SCD, Lovenox. Code Visit Inpatient E&M: 93846 Init Hosp L3
[2018-06-26] MEDS: 0.9% NaCl Peripheral Flush Adult/Peds IV (23:45)
[2018-06-26] MEDS: 0.9% Normal Saline 1,000 ML 125 ML IV (23:45)
[2018-06-26 23:46] LABS: Reflex Lactate? Y
[2018-06-26 23:47] LABS: Magnesium 1.9 mg/dL (1.6-2.6)
[2018-06-26 23:51] LABS: Bedside Glucose 125 mg/dL (70-110)
[2018-06-27] VITALS (13 sets, daily range): BP systolic 93–119; BP diastolic 56–63; PULSE 81–94; RESP 16–20; TEMP 36.6–36.8; O2SAT 94–98
[2018-06-27] MEDS: Ipratropium/Albuterol Sulfate 3 ML AMPUL.NEB INHALATION ×6 (00:34→23:11)
[2018-06-27 00:54] LABS: Lactic Acid 1.8 mmol/L (0.4-2.0)
[2018-06-27] MEDS: Insulin Lispro 100 UNIT/ML INSULN.PEN SC ×2 (06:27→11:09)
[2018-06-27 06:46] LABS: Bedside Glucose 168 mg/dL (70-110)
[2018-06-27 07:09] LABS: Absolute Lymphocyte Count 0.36 X10^3/ul (0.83-4.51); Absolute Neutrophil Count 5.2 X10^3/uL (2.0-7.7); Basophil# 0.01 X10^3/uL; Basophil% 0.2 % (0-1); Hematocrit 43.4 % (40-54); Hemoglobin 14.4 g/dl (13.0-16.5); Lymphocyte # 0.36 X10^3/ul (4.0); Lymphocyte % 6.4 % (19-41); Mean Corp Hgb Conc 33.2 g/gl (32-36); Mean Corpuscular Volume 90.4 fL (80-94); Mean Platelet Vol. 11.6 fl (6.2-12.0); Monocyte# 0.08 X10^3/uL; Monocyte% 1.4 % (0-10); Neutrophil # 5.17 X10^3/uL (2.7-7.7); Neutrophil % 91.8 % (47-70); Platelet Count 184 K/mm3 (150-450); RBC Distribution Width CV 15.3 % (11.6-14.6); RBC Distribution Width SD 50.5 fl (35.1-43.9); White Blood Count 5.6 K/mm3 (4.4-11.0)
[2018-06-27 07:12] LABS: Differential Indicated SCAN CRITERIA MET; POSITIVE COUNT NO; POSITIVE DIFFERENTIAL YES; POSITIVE MORPHOLOGY NO
[2018-06-27 07:14] LABS: Anion Gap 10 (5-15); BUN 22 mg/dL (7-18); BUN/Creat Ratio 16.1 RATIO (10-20); Calcium,Total 8.6 mg/dL (8.5-10.1); Chloride 111 mmol/L (98-107); Creatinine, Serum 1.37 mg/dL (0.70-1.30); EST Glomerular Filtration Rate 53 mL/min (>60); Est Glom Filt Rate - Afr Amer 64 mL/min (>60); Estimated Creatinine Clearance 43.72 ml/min; Glucose 173 mg/dL (74-106); Sodium Level 144 mmol/L (136-145)
--- NOTE | 2018-06-27 07:30 | PN_ITS ---
Patient Problems: Active and Suspected Problems (Last Updated 09/26/17 @ 12:38 by Cesilia Stephens) Viral syndrome (Acute) COPD exacerbation (Acute) Hypokalemia (Acute) Subjective: The patient is a 78-year-old male with a past medical history of tobacco dependence, COPD, history of lung cancer stage 1 with a RUL mass in remission, hypertension, hyperlipidemia, diabetes mellitus type 2, thyroid nodules and skin cancer who presented to the emergency department at [facility] on 06/26/2018 complaining of cough, shortness of breath, headache and myalgias. Vital signs in the ER were temp 99.9, heart rate 104, blood pressure 102/50, respiratory rate 20 and he was 95% saturated on a 2 L nasal cannula. White blood cell count was normal at 8.9 and hemoglobin was 16.3. Potassium was mildly decreased at 3.5 and lactic acid was 2. Troponin was less than 0.015. Chest x-ray showed chronic changes with no acute cardiopulmonary findings. The nodule in the RUL was not mentioned but is apparent when comparing an old CXR to the CXR done on 06/26. Rapid influenza was negative. He was admitted to the hospital with a diagnosis of acute exacerbation of COPD secondary to acute viral syndrome. All events of the past 24 hours of been reviewed T-max is 101.4 and current temp is 98.3. Vital signs are stable and he is 98% saturated on 1 L nasal cannula currently. All lab was personally reviewed. White blood cell count is 5.6 with 91% neutrophils however he is on high-dose intravenous steroids. BNP shows potassium of 4, up from 3.3 at admission. BUN is 22 and the creatinine is 1.37, up from 1.3 at admission. Repeat lactic acid was 1.8. UA had 5-10 WBCs and culture is pending. Rapid influenza was negative. Respiratory panel was negative. Blood cultures and urine culture are pending. Sputum Gram stain and sputum culture are also pending. He does not know if the lung CA is small cell or non-small cell. He is seen and followed at the [facility] main campus. He has been treated with radiation. He could not have a resection to to chronic lung disease. States he is feeling better today. Objective: General: Alert, oriented ?3, cooperative, pleasant and appropriate, no apparent distress Neck: Supple, trachea midline, no enlarged cervical nodes, no enlarged supraclavicular nodes no nuchal rigidity Lungs: Diminished, symmetric chest expansion, not tachypneic, no conversational dyspnea, no accessory muscle use, rare rhonchi with no tight expiratory or inspiratory wheezing. Was observed walking to the bathroom and became mildly tachypneic. Heart: Regular rate and rhythm, normal S1, normal S2, no murmur, no gallop, no rub Abdomen: Soft, NT, ND, bowel sounds present Extremities: No clubbing, mild ankle edema, no cyanosis - Physical Exam Vital Signs Temp Pulse Resp BP Pulse Ox 98.3 F 83 18 119/63 98 06/27/18 05:21 06/27/18 05:21 06/27/18 05:21 06/27/18 05:21 06/27/18 05:21 Oxygen Flow Rate (L/min) 1 Oxygen Delivery Method Nasal Cannula Weight: 182 lb 15.739 oz Body Mass Index (BMI) 27.0 Finger Stick Blood Glucose 115 Intake and Output for Last 24 Hours 06/25/18 06/26/18 06/27/18 23:59 23:59 23:59 Intake Total 732 / 732 Balance 732 / 732 Microbiology Past 72 Hours 06/26/18 19:50 Influenza Types A,B Direct FA (ASHLEY) - Final Mucosa - Nose Laboratory Tests Past 24 Hrs 06/26/18 06/26/18 06/26/18 19:10 19:10 19:10 WBC 8.9 RBC 5.23 Hgb 16.3 Hct 46.7 MCV 89.3 MCH 31.2 MCHC 34.9 RDW 15.4 H RDW Differential 50.3 H Plt Count 190 MPV 11.6 Immature Gran % (Auto) 0.100 Neut % (Auto) 74.3 H Lymph % (Auto) 11.9 L [place] % (Auto) 12.1 H Eos % (Auto) 0.7 Baso % (Auto) 0.9 Absolute Neuts (auto) 6.6 Absolute Lymphs (auto) 1.06 Total Counted Not Reportable Sodium 141 Potassium 3.3 L Chloride 105 Carbon Dioxide 28.0 Anion Gap 8 BUN 18 Creatinine 1.30 Estim Creat Clear Calc 46.08 Est GFR (MDRD) Af Amer 68 Est GFR (MDRD) Non-Af 57 L BUN/Creatinine Ratio 13.8 Glucose 135 H Lactic Acid 2.0 Calcium 9.0 Magnesium Troponin I < 0.015 Urine Color Urine Clarity Urine pH Ur Specific [place] Urine Protein Urine Glucose (UA) Urine Ketones Urine Occult Blood Urine Nitrite Urine Bilirubin Urine Urobilinogen Ur Leukocyte Esterase Urine RBC Urine WBC Ur Squamous Epith Cells Urine Bacteria Urine Mucus 06/26/18 06/26/18 06/27/18 19:10 20:26 00:18 WBC RBC Hgb Hct MCV MCH MCHC RDW RDW Differential Plt Count MPV Immature Gran % (Auto) Neut % (Auto) Lymph % (Auto) [place] % (Auto) Eos % (Auto) Baso % (Auto) Absolute Neuts (auto) Absolute Lymphs (auto) Total Counted Sodium Potassium Chloride Carbon Dioxide Anion Gap BUN Creatinine Estim Creat Clear Calc Est GFR (MDRD) Af Amer Est GFR (MDRD) Non-Af BUN/Creatinine Ratio Glucose Lactic Acid 1.8 Calcium Magnesium 1.9 Troponin I Urine Color Yellow Urine Clarity Clear Urine pH 7.0 Ur Specific [place] 1.015 Urine Protein 100 H Urine Glucose (UA) Normal Urine Ketones Negative Urine Occult Blood 25 H Urine Nitrite Negative Urine Bilirubin Negative Urine Urobilinogen Normal Ur Leukocyte Esterase 100 H Urine RBC 0 SEEN Urine WBC 5-10 SEEN Ur Squamous Epith Cells 0 SEEN Urine Bacteria 0 SEEN Urine Mucus 0 SEEN 06/27/18 06/27/18 06:04 06:04 WBC 5.6 RBC 4.80 Hgb 14.4 Hct 43.4 MCV 90.4 MCH 30.0 MCHC 33.2 RDW 15.3 H RDW Differential 50.5 H Plt Count 184 MPV 11.6 Immature Gran % (Auto) 0.200 Neut % (Auto) 91.8 H Lymph % (Auto) 6.4 L [place] % (Auto) 1.4 Eos % (Auto) 0.0 Baso % (Auto) 0.2 Absolute Neuts (auto) 5.2 Absolute Lymphs (auto) 0.36 L Total Counted Pending Sodium 144 Potassium 4.0 Chloride 111 H Carbon Dioxide 23.0 Anion Gap 10 BUN 22 H Creatinine 1.37 H Estim Creat Clear Calc 43.72 Est GFR (MDRD) Af Amer 64 Est GFR (MDRD) Non-Af 53 L BUN/Creatinine Ratio 16.1 Glucose 173 H Lactic Acid Calcium 8.6 Magnesium Troponin I Urine Color Urine Clarity Urine pH Ur Specific [place] Urine Protein Urine Glucose (UA) Urine Ketones Urine Occult Blood Urine Nitrite Urine Bilirubin Urine Urobilinogen Ur Leukocyte Esterase Urine RBC Urine WBC Ur Squamous Epith Cells Urine Bacteria Urine Mucus POC Glucose 06/27/18 06/26/18 06:24 23:43 POC Glucose 168 H 125 H Medical Necessity - Tobacco Use Smoking Status: Current every day smoker - Patient continues to smoke 1 pack/day cigarette tobacco usage. Tobacco Use: Cigarettes Assessment/Plan All Active Problems (Last Updated 09/26/17 @ 12:38 by Cesilia Stephens) Viral syndrome (Acute) COPD exacerbation (Acute) Hypokalemia (Acute) Shortness of breath (Acute) Impressions 1. Acute exacerbation of COPD-likely due to upper respiratory tract infection 2. Chronic bronchitis 3. stage 1 lung CA in the RUL 4. Hypokalemia-resolved 5. Diabetes mellitus type 2 6. Tobacco dependence 7. Hypertension 8. Hyperlipidemia 9. Thyroid nodules-benign 10. Anxiety 11. Chronic renal failure stage III start Buspar to see if improving the anxiety helps him to stop smoking Smoking cessation counselling given Continue bronchodilators and intravenous steroids, may be able to transition to oral prednisone in the a.m. Ambulatory pulse ox on room air prior to discharge spent 45 minutes talking to the pt and answering all his questions and providing smoking cessation counseling and then an additional time talking with his son when he showed up near the end of my visit with his father. All his questions were answered. Code Visit Inpatient E&M: 65263 Subs Hosp L2
[2018-06-27] MEDS: 0.9% Normal Saline 1,000 ML 125 ML IV ×3 (07:44→23:11)
[2018-06-27] MEDS: Aspirin 81 MG TAB.CHEW PO (07:44)
[2018-06-27] MEDS: guaiFENesin 1,200 MG Tablet 1200 MG PO ×2 (09:45→21:17)
[2018-06-27] MEDS: Heparin Injection (Vial) 5,000 UNIT/ML VIAL 5000 UNIT SC ×2 (09:45→21:16)
[2018-06-27] MEDS: Losartan Potassium 50 MG Tablet PO (09:46)
[2018-06-27] MEDS: hydroCHLOROthiazide 12.5mg 12.5 MG PO (09:46)
[2018-06-27] MEDS: Pramipexole Di-HCl 1 MG Tablet 1.5 MG PO ×2 (09:46→21:16)
[2018-06-27 11:21] LABS: Bedside Glucose 221 mg/dL (70-110)
--- NOTE | 2018-06-27 11:40 | CASEMGMT ---
DEVORA LOVE LABORER GOLD LEAF CM to room to meet with patient for initial transition planning/care coordination assessment. DEVORA LOVE introduced self and role at [facility].? Pt voices understanding and consents to assessment at this time.? Pt resting in bed in no distress at this time.? Pt is A/O at this time and answers all questions appropriately.?? Care providers, pharmacy, and demographics verified at this time. PCP: Julio Cesar Specialists: Dr Hitchcock, oncologist @ [facility]. Dr Gordillo, Disc Ruler Operator @ [facility]. Preferred Pharmacy: [facility] Insurance: [employer] Prescription Benefit:? [employer] Living Will/HPOA:? Has both LW and HCPOA, who is pt's son, Darnell Martínez Jr. Both copies on file in e-chart. LNOK: Son Living Arrangements: Lives alone in 1 bedroom apartment. No stairs to enter. Independent. Transportation: Pt states drives self and states no transportation concerns at this time.? States does not drive @ night or in heavy traffic. Son assists with transportation as needed. DME: ? States has the following DME:? Rails/grab bars, nebulizer. States is interested in information on medical alert button. Provided with list of local providers. Does not have O2 @ home. On RA now. HHC/SNF: States has never been to a SNF or used HHC. Declines needing HHC and no needs identified. Pt wishes to return home and states has no concerns with going home at time of discharge.? CM to follow further discharge planning/needs.? Pt voices no further concerns/needs at this time.? Advised pt to ask for CM if any further questions/concerns/needs arise.? Voices understanding. PLAN: ?Home Ora GARCIA RN, CM
[2018-06-27] MEDS: 0.9% NaCl Peripheral Flush Adult/Peds IV ×2 (13:29→21:21)
[2018-06-27 16:01] LABS: Bedside Glucose 124 mg/dL (70-110)
[2018-06-27] MEDS: Pramipexole Di-HCl 0.5 MG Tablet 0.75 MG PO (16:40)
[2018-06-27] MEDS: Latanoprost 0.005% 1 Bottle 1 DRP LEFT EYE (21:15)
[2018-06-27] MEDS: Atorvastatin Calcium 10 MG Tablet PO (21:16)
[2018-06-27 21:56] LABS: Bedside Glucose 133 mg/dL (70-110)
[2018-06-28] VITALS (11 sets, daily range): BP systolic 117–130; BP diastolic 69–80; PULSE 66–90; RESP 18–20; TEMP 36.6–37.2; O2SAT 94–98
[2018-06-28] MEDS: Ipratropium/Albuterol Sulfate 3 ML AMPUL.NEB INHALATION ×5 (03:21→23:05)
[2018-06-28] MEDS: 0.9% Normal Saline 1,000 ML 125 ML IV (06:30)
[2018-06-28 06:45] LABS: Bedside Glucose 129 mg/dL (70-110)
[2018-06-28] MEDS: Aspirin 81 MG TAB.CHEW PO (07:18)
[2018-06-28] MEDS: predniSONE 20 MG Tablet 40 MG PO (09:11)
[2018-06-28] MEDS: guaiFENesin 1,200 MG Tablet 1200 MG PO ×2 (09:12→21:35)
[2018-06-28] MEDS: Losartan Potassium 50 MG Tablet PO (09:12)
[2018-06-28] MEDS: hydroCHLOROthiazide 12.5mg 12.5 MG PO (09:16)
[2018-06-28] MEDS: Heparin Injection (Vial) 5,000 UNIT/ML VIAL 5000 UNIT SC ×2 (09:17→21:35)
[2018-06-28] MEDS: Pramipexole Di-HCl 1 MG Tablet 1.5 MG PO ×2 (09:18→21:35)
[2018-06-28 11:36] LABS: Bedside Glucose 126 mg/dL (70-110)
--- NOTE | 2018-06-28 12:14 | NURSING ---
lab called and state that 1st sputum collected was all epithelial cells (saliva) and that we will need to send another specimen. Order entered.
--- NOTE | 2018-06-28 13:40 | NS ---
Please provide gravy/sauces on the side w/ meals to moisten food.
[2018-06-28 16:01] LABS: Bedside Glucose 115 mg/dL (70-110)
[2018-06-28] MEDS: Pramipexole Di-HCl 0.5 MG Tablet 0.75 MG PO (17:25)
[2018-06-28] MEDS: Ipratropium Bromide 0.06% NASAL SPRAY 2 SPRAY NASAL ×2 (18:56→21:36)
--- NOTE | 2018-06-28 19:41 | PCM.PROGNOTE ---
Subjective: All events of the past 24 hours been reviewed. Afebrile since admission Ambulated in the halls today and stated that he felt tired at the end of his walk and mildly short of breath. Continues to complain of dry cough which increases when he lies flat in bed Denies chest pain Objective: PHYSICAL EXAM: GENERAL: alert, oriented X 3, Cooperative, NAD ORAL: moist mucosa, no mucosal lesions NECK: No JVD, supple, trachea midline LUNGS: CTA, symmetric chest expansion, diminished, HEART: RRR, Normal S1 and S2, no rub, no gallop ABDOMEN: soft, NT, ND, BS present, no guarding with palpation EXTREMITIES: no edema, no cyanosis, no calf tenderness SKIN: No rashes, no breakdown NEUROLOGIC: no focal neurologic deficits PSYCH: appropriate, normal affect, pleasant - Physical Exam Vital Signs Temp Pulse Resp BP Pulse Ox 98.9 F 74 18 124/74 H 98 06/28/18 15:08 06/28/18 15:08 06/28/18 15:08 06/28/18 15:08 06/28/18 15:08 Oxygen Flow Rate (L/min) 2 Oxygen Delivery Method Room Air Weight: 182 lb 15.739 oz Body Mass Index (BMI) 27.0 Finger Stick Blood Glucose 115 Intake and Output for Last 24 Hours 06/26/18 06/27/18 06/28/18 23:59 23:59 23:59 Intake Total 5116 / 5116 2936 / 2936 Output Total 1875 / 1875 800 / 800 Balance 3241 / 3241 2136 / 2136 Microbiology Past 72 Hours 06/27/18 20:10 Gram Stain - Final Sputum, Expectorated/Coughed Respiratory Culture - Final 06/26/18 20:26 Urine Culture - Final Urine, Clean Catch Streptococcus group G 06/26/18 19:50 Respiratory Panel (PCR) - Final Mucosa - Nose 06/26/18 19:50 Influenza Types A,B Direct FA (ASHLEY) - Final Mucosa - Nose POC Glucose 06/28/18 06/28/18 06/28/18 15:56 11:16 06:29 POC Glucose 115 H 126 H 129 H 06/27/18 21:11 POC Glucose 133 H Medical Necessity - Tobacco Use Smoking Status: Current every day smoker - Patient continues to smoke 1 pack/day cigarette tobacco usage. Tobacco Use: Cigarettes Assessment/Plan All Active Problems (Last Updated 09/26/17 @ 12:38 by Cesilia Stephens) Viral syndrome (Acute) COPD exacerbation (Acute) Hypokalemia (Acute) Shortness of breath (Acute) Impressions 1. Acute exacerbation of COPD-likely due to upper respiratory tract infection 2. Chronic bronchitis 3. stage 1 lung CA in the RUL 4. Hypokalemia-resolved 5. Diabetes mellitus type 2 6. Tobacco dependence 7. Hypertension 8. Hyperlipidemia 9. Thyroid nodules-benign 10. Anxiety 11. Chronic renal failure stage III start Buspar to see if improving the anxiety helps him to stop smoking Smoking cessation counselling given Continue bronchodilators DC Solu-Medrol and transition to prednisone - DC in the AM if he remains stable Ambulatory pulse ox on room air prior to discharge Code Visit Inpatient E&M: 90754 Subs Hosp L2
[2018-06-28] MEDS: Atorvastatin Calcium 10 MG Tablet PO (21:35)
[2018-06-28] MEDS: busPIRone 5 MG Tablet PO (21:35)
[2018-06-28] MEDS: 0.9% NaCl Peripheral Flush Adult/Peds IV (21:35)
[2018-06-28] MEDS: Latanoprost 0.005% 1 Bottle 1 DRP LEFT EYE (21:36)
[2018-06-28] MEDS: Insulin Lispro 100 UNIT/ML INSULN.PEN SC (21:42)
[2018-06-28 22:56] LABS: Bedside Glucose 151 mg/dL (70-110)
[2018-06-29] VITALS (8 sets, daily range): BP systolic 120–162; BP diastolic 75–90; PULSE 62–89; RESP 18–22; TEMP 36.6–37.3; O2SAT 92–98
[2018-06-29] MEDS: Ipratropium/Albuterol Sulfate 3 ML AMPUL.NEB INHALATION ×3 (03:01→11:10)
[2018-06-29] MEDS: Ipratropium Bromide 0.06% NASAL SPRAY 2 SPRAY NASAL ×2 (05:39→15:17)
[2018-06-29] MEDS: busPIRone 5 MG Tablet PO ×3 (05:39→15:17)
[2018-06-29 06:40] LABS: Bedside Glucose 77 mg/dL (70-110)
[2018-06-29] MEDS: Albuterol 2.5 MG/3 ML VIAL.NEB. INHALATION (06:52)
[2018-06-29] MEDS: Heparin Injection (Vial) 5,000 UNIT/ML VIAL 5000 UNIT SC (09:43)
[2018-06-29] MEDS: hydroCHLOROthiazide 12.5mg 12.5 MG PO (09:43)
[2018-06-29] MEDS: Losartan Potassium 50 MG Tablet PO (09:43)
[2018-06-29] MEDS: Aspirin 81 MG TAB.CHEW PO (09:43)
[2018-06-29] MEDS: predniSONE 20 MG Tablet 40 MG PO (09:43)
[2018-06-29] MEDS: guaiFENesin 1,200 MG Tablet 1200 MG PO (09:44)
[2018-06-29] MEDS: Pramipexole Di-HCl 1 MG Tablet 1.5 MG PO (09:44)
[2018-06-29 11:56] LABS: Bedside Glucose 95 mg/dL (70-110)
--- NOTE | 2018-06-29 14:52 | DCINST_ITS ---
- Discharge Diagnoses Current Active Problems: Current Active and Chronic Problems (Last Updated 09/26/17 @ 12:38 by Cesilia Stephens) Viral syndrome (Acute) COPD exacerbation (Acute) Hypokalemia (Acute) Diabetes mellitus, type II (Chronic) You will use the following diet at home:: No restrictions Your food should be the consistency of: Regular Your liquids should be the consistency of: Regular/Thin Discharge Activity: - - Avoid exposure to any strong smells such as bleach, cleaning products, strong colognes or perfumes, paint fumes and smoke of any kind. Avoid sudden exposure to cold air because this can cause bronchospasm. You may want to cover your mouth when you go outside in the winter. Avoid exposure to anyone who is sick with a cough or sore throat. Call your doctor if you observe: Fever of 101 or Higher, Shortness of breath, Dizziness, Fainting spells, Chest pain, Calf discomfort Instructions: Tips for Quitting Smoking (Cardiovascular), Chronic Lung Disease: Tips for Quitting Smoking, Why Do You Smoke?, Getting Support for Quitting Smoking, What is COPD?, Understanding Advance Care Planning, Understanding DNR Orders Additional Instructions: 1. You have already had lung cancer and fortunately it was caught at a very early stage. You have many risk factors for heart diease and strokes. You already have chronic lung disease. It would be in your best interest to quit smoking......make every effort instead of every excuse. If you do not want to stop smoking because you enjoy it then you should do some advance planning because the lung disease will continue to worsen and the cancer may come back. You need to talk with your son about what you want done if your breathing gets so bad you would need to go on a ventilator to breath for you.....would you want this? I have started you on a medication called Buspar to help control and anxiety and help you stop smoking......if you take it for a month and you are still smoking then you can likely stop the medication. I have also given you a prescription for a nicotine patch and some literature to read about tips to help you stop smoking and resources available to help you. You have to want to stop smoking or it is not going to happen. Allergies/Adverse Reactions: Allergies BEE STINGS Allergy (Severe, Uncoded 06/26/18 19:14) Anaphylaxis Medications to take at Discharge Atorvastatin Calcium [Lipitor] 10 mg PO DAILY 12/22/13 Losartan/Hydrochlorothiazide [Hyzaar 50-12.5 Tablet] 1 tab PO DAILY 12/22/13 Metformin HCl [Glucophage] 500 mg PO DAILY 12/22/13 Multivitamins,Therapeutic [Multivitamin] 1 tab PO DAILY 12/22/13 Latanoprost 0.005% [Xalatan Opthalmic] 1 drp LEFT EYE QHS 01/07/15 Aspirin [Aspirin, Baby] 81 mg PO DAILY@0800 06/30/16 budesonide-formoterol HFA 160 mcg-4.5 mcg/actuation aerosol inhaler 2 puff INHALATION BID 09/26/17 epinephrine 0.3 mg/0.3 mL injection, auto-injector 0.3 mg IM ONCE 09/26/17 ropinirole 1 mg tablet 1.5 mg PO DINNER 09/26/17 Ropinirole HCl [Requip] 3 mg PO BID 11/12/17 Albuterol IH (ProAir) [Proair Hfa] 2 puff INHALATION 4X/DAY 06/26/18 Furosemide [Lasix] 20 mg PO DAILY 06/26/18 Magnesium Oxide [Mag-Ox 400] 400 mg PO DAILY 06/26/18 Potassium Citrate [Urocit-K] 5 meq PO DAILY 06/26/18 Guaifenesin [Mucinex] 1,200 mg PO BID #20 tablet 06/29/18 Ipratropium [place] 0.06% [ATROVENT NASAL SPRAY] 2 spray NASAL TID #1 nasal.sry 06/29/18 Nicotine [Nicoderm Cq] 21 mg TRANSDERM. DAILY #28 patch 06/29/18 Prednisone 10 mg PO UD #30 tablet 06/29/18 busPIRone [Buspar] 5 mg PO TID #90 tablet 06/29/18 The following prescriptions were given: Nicotine [Nicoderm Cq] 21 mg TRANSDERM. DAILY #28 patch Prednisone 10 mg PO UD #30 tablet Guaifenesin [Mucinex] 1,200 mg PO BID #20 tablet busPIRone [Buspar] 5 mg PO TID #90 tablet Ipratropium [place] 0.06% [ATROVENT NASAL SPRAY] 2 spray NASAL TID #1 nasal.sry Primary Care Physician: Kevon Harrell MD [Primary Care Provider] - Please follow up with your Primary Care Physician in: 1-2 weeks Test Results: Test results from this visit will be discussed in further detail at your follow- up appointment, if applicable.
--- NOTE | 2018-06-29 14:53 | PCM.DC.SUM ---
Discharge Date and Diagnosis Date of Admission: 06/26/18 Date of Discharge: 06/29/18 - Primary Discharge Diagnosis Active and Suspected Problems (Last Updated 09/26/17 @ 12:38 by Cesilia Stephens) Viral syndrome (Acute) Acute COPD exacerbation (Acute) Hypokalemia (Acute) - Secondary Discharge Diagnosis Chronic Problems (Last Updated 09/26/17 @ 12:38 by Cesilia Stephens) Diabetes mellitus, type II (Chronic) Cheek mass (Chronic) 6 mm soft tissue mass left supramedial cheek by lateral nose Personal history of skin cancer (Chronic) Smoker (Chronic) COPD (chronic obstructive pulmonary disease) (Chronic) HLD (hyperlipidemia) (Chronic) HTN (hypertension) (Chronic) Stage 1 lung cancer, RUL mass (Chronic) - treated with radiation - lung function too poor for a resection History of basal cell carcinoma (Chronic) BCC left upper neck by earlobe (Chronic) Hospital Course and Treatment Imaging Results: Clinical Impression(s) from Imaging Studies Chest X-Ray 06/26/18 19:39 IMPRESSION: COPD Electronically Signed: Sam Gregory MD at 20:08 EST , Service support , Laboratory Results - last 24 hr 06/28/18 06/28/18 06/29/18 15:56 21:42 06:30 POC Glucose 115 H 151 H 77 06/29/18 11:44 POC Glucose 95 Microbiology 06/26/18 19:36 Blood Culture (Wb) - Anticubital Right Blood Culture - Preliminary No growth in 48 hours. 06/26/18 19:10 Blood Culture (Wb) - Anticubital Left Blood Culture - Preliminary No growth in 48 hours. 06/27/18 20:10 Sputum, Expectorated/Coughed Gram Stain - Final 06/27/18 20:10 Sputum, Expectorated/Coughed Respiratory Culture - Final 06/26/18 20:26 Urine, Clean Catch Urine Culture - Final Streptococcus group G 06/26/18 19:50 Mucosa - Nose Respiratory Panel (PCR) - Final 06/26/18 19:50 Mucosa - Nose Influenza Types A,B Direct FA (ASHLEY) - Final none Operations: None Procedures: None Summary of Care Provided: The patient is a 78-year-old male with a past medical history of tobacco dependence, COPD, history of lung cancer stage 1 treated with radiation with a RUL mass in remission, hypertension, hyperlipidemia, diabetes mellitus type 2, thyroid nodules and skin cancer who presented to the emergency department at [facility] on 06/26/2018 complaining of cough, shortness of breath, headache and myalgias. Vital signs in the ER were temp 99.9, heart rate 104, blood pressure 102/50, respiratory rate 20 and he was 95% saturated on a 2 L nasal cannula. White blood cell count was normal at 8.9 and hemoglobin was 16.3. Potassium was mildly decreased at 3.5 and lactic acid was 2. Troponin was less than 0.015. A UA had 0-5 white blood cells per high-power field and no bacteria seen. A urine culture was sent from the emergency room and grew group G strep which in my opinion is a contaminant. Chest x-ray showed chronic changes with no acute cardiopulmonary findings. The nodule in the RUL was not mentioned but is apparent when comparing an old CXR to the CXR done on 06/26. Rapid influenza was negative. He was admitted to the hospital with a diagnosis of acute exacerbation of COPD secondary to acute viral syndrome. He was started on [id number] aerosols with DuoNeb and as needed albuterol aerosols, high-dose intravenous steroids and a nicotine patch. Smoking cessation counseling was provided. He improved with the above measures and on 06/29 the pulse ox on RA with ambulation was 94%. He was afebrile and the lungs were diminished but, CTA. He was discharged home on a prednisone taper. He was given a RX for Buspar to help control his anxiety while he tries to quit smoking. He was also given a RX for Atrovent nasal spray which has helped with the cough. He Will follow up Dr. Harrell in the next 1-2 weeks. Despite having lung Cancer and COPD he does not seem very motivated to quit smoking. General: Alert, oriented ?3, cooperative, pleasant and appropriate, no apparent distress Neck: Supple, trachea midline, no enlarged cervical nodes, no enlarged supraclavicular nodes no nuchal rigidity Lungs: Diminished, symmetric chest expansion, not tachypneic, no conversational dyspnea, no accessory muscle use, CTA. Heart: Regular rate and rhythm, normal S1, normal S2, no murmur, no gallop, no rub Abdomen: Soft, NT, ND, bowel sounds present Extremities: No clubbing, mild ankle edema, no cyanosis This note was generated with [employer] dictation software. It may contain incorrect words, spelling, and punctuation that were not noted in checking the note before signing. - Physical Exam Vital Signs Temp Pulse Resp BP Pulse Ox 99.1 F 80 20 H 120/75 92 06/29/18 08:55 06/29/18 11:10 06/29/18 11:10 06/29/18 08:55 06/29/18 13:29 Oxygen Flow Rate (L/min) 2 Oxygen Delivery Method Room Air Weight: 182 lb 15.739 oz Body Mass Index (BMI) 27.0 Finger Stick Blood Glucose 115 Intake and Output for Last 24 Hours 06/27/18 06/28/18 06/29/18 23:59 23:59 23:59 Intake Total 5116 / 5116 2936 / 2936 1360 / 1360 Output Total 1875 / 1875 800 / 800 600 / 600 Balance 3241 / 3241 2136 / 2136 760 / 760 Microbiology Past 72 Hours 06/26/18 19:36 Blood Culture - Preliminary Blood Culture (Wb) - Anticubital Right No growth in 48 hours. 06/26/18 19:10 Blood Culture - Preliminary Blood Culture (Wb) - Anticubital Left No growth in 48 hours. 06/27/18 20:10 Gram Stain - Final Sputum, Expectorated/Coughed Respiratory Culture - Final 06/26/18 20:26 Urine Culture - Final Urine, Clean Catch Streptococcus group G 06/26/18 19:50 Respiratory Panel (PCR) - Final Mucosa - Nose 06/26/18 19:50 Influenza Types A,B Direct FA (ASHLEY) - Final Mucosa - Nose POC Glucose 06/29/18 06/29/18 06/28/18 11:44 06:30 21:42 POC Glucose 95 77 151 H 06/28/18 15:56 POC Glucose 115 H Discharge Activity: - - Avoid exposure to any strong smells such as bleach, cleaning products, strong colognes or perfumes, paint fumes and smoke of any kind. Avoid sudden exposure to cold air because this can cause bronchospasm. You may want to cover your mouth when you go outside in the winter. Avoid exposure to anyone who is sick with a cough or sore throat. Call your doctor if you observe: Fever of 101 or Higher, Shortness of breath, Dizziness, Fainting spells, Chest pain, Calf discomfort Home Medications: Medications to take at Discharge RX: Atorvastatin Calcium [Lipitor] 10 mg PO DAILY 12/22/13 RX: Losartan/Hydrochlorothiazide [Hyzaar 50-12.5 Tablet] 1 tab PO DAILY 12/22/13 RX: Metformin HCl [Glucophage] 500 mg PO DAILY 12/22/13 RX: Multivitamins,Therapeutic [Multivitamin] 1 tab PO DAILY 12/22/13 RX: Latanoprost 0.005% [Xalatan Opthalmic] 1 drp LEFT EYE QHS 01/07/15 RX: Aspirin [Aspirin, Baby] 81 mg PO DAILY@0800 06/30/16 budesonide-formoterol HFA 160 mcg-4.5 mcg/actuation aerosol inhaler 2 puff INHALATION BID 09/26/17 epinephrine 0.3 mg/0.3 mL injection, auto-injector 0.3 mg IM ONCE 09/26/17 ropinirole 1 mg tablet 1.5 mg PO DINNER 09/26/17 RX: Ropinirole HCl [Requip] 3 mg PO BID 11/12/17 RX: Albuterol IH (ProAir) [Proair Hfa] 2 puff INHALATION 4X/DAY 06/26/18 RX: Furosemide [Lasix] 20 mg PO DAILY 06/26/18 RX: Magnesium Oxide [Mag-Ox 400] 400 mg PO DAILY 06/26/18 RX: Potassium Citrate [Urocit-K] 5 meq PO DAILY 06/26/18 RX: Guaifenesin [Mucinex] 1,200 mg PO BID #20 tablet 06/29/18 RX: Ipratropium [place] 0.06% [ATROVENT NASAL SPRAY] 2 spray NASAL TID #1 nasal.sry 06/29/18 RX: Nicotine [Nicoderm Cq] 21 mg TRANSDERM. DAILY #28 patch 06/29/18 RX: Prednisone 10 mg PO UD #30 tablet 06/29/18 RX: busPIRone [Buspar] 5 mg PO TID #90 tablet 06/29/18 Following Prescrptions Were Given to Patient: RX: Nicotine [Nicoderm Cq] 21 mg TRANSDERM. DAILY #28 patch RX: Prednisone 10 mg PO UD #30 tablet RX: Guaifenesin [Mucinex] 1,200 mg PO BID #20 tablet RX: busPIRone [Buspar] 5 mg PO TID #90 tablet RX: Ipratropium [place] 0.06% [ATROVENT NASAL SPRAY] 2 spray NASAL TID #1 nasal.sry Primary Care Physician: Kevon Harrell MD [Primary Care Provider] - Please follow up with your Primary Care Physician in: 1-2 weeks Patient Instructions: Understanding Advance Care Planning, Tips for Quitting Smoking (Cardiovascular), What is COPD?, Chronic Lung Disease: Tips for Quitting Smoking, Understanding DNR Orders, Why Do You Smoke?, Getting Support for Quitting Smoking Disposition: Home Minutes spent on discharge:: 35 Patient Condition:: Good Medical Necessity - Tobacco Use Smoking Status: Current every day smoker - Patient continues to smoke 1 pack/day cigarette tobacco usage. Tobacco Use: Cigarettes Meaningful Use Info Meaningful Use Diagnoses (Choose all that apply): None applicable Code Visit Inpatient E&M: 72618 Disch Hosp
--- NOTE | 2018-07-01 15:02 | CASEMGMT ---
DEVORA DC Phone call DC Date: 06/29/18 DC Disposition: Home LACE/STRATA: 03/16 Call details: Intro role of CM to patient via phone, pt able to participate in discussion. Pt states he is improving. Reviewed medications with him, no questions re: medications at this time. Pt made f/u appointment for next Sunday with PCP. Pt stated his care was excellent and no care improvement suggestions were given. Abimael IRIZARRYN RN ACM
== END 2018-06-29 15:35 | disposition home or self-care (01) | DRG 866 ==
LOC: ED 19:42 → MS3 21:52
PROVIDERS: Admitting Provider Family Medicine; Emergency Provider Emergency Medicine; Family Provider Family Medicine; PCP Family Medicine; Visit Provider Internal Medicine
DX: B34.9 Viral infection, unspecified (principal); J44.1 Chronic obstructive pulmonary disease with (acute) exacerbation; J06.9 Acute upper respiratory infection, unspecified; E87.6 Hypokalemia; E78.5 Hyperlipidemia, unspecified; F17.210 Nicotine dependence, cigarettes, uncomplicated; I12.9 Hypertensive chronic kidney disease with stage 1 through stage 4 chronic kidney disease, or unspecified chronic kidney disease; E11.22 Type 2 diabetes mellitus with diabetic chronic kidney disease; N18.3 Chronic kidney disease, stage 3 (moderate); Z92.3 Personal history of irradiation; Z79.899 Other long term (current) drug therapy; Z79.84 Long term (current) use of oral hypoglycemic drugs; Z85.118 Personal history of other malignant neoplasm of bronchus and lung; Z85.828 Personal history of other malignant neoplasm of skin
CPT/HCPCS: 36415; 71045; 80048; 81001; 82962; 83605; 83735; 84484; 85025; 87040; 87070; 87077; 87086; 87088; 87205; 87633; 87804; 93005; 94640; 94667; 94668; 97162; 99285; J7030; A4216

== ENCOUNTER → 2018-07-02 16:12 | Outpatient (CLI) | payer MEDICARE, BC, SELFPAY ==
[2018-06-26 23:14] VITALS: BMI 27.0
--- NOTE | 2018-07-02 16:16 | RAD_ITS ---
STUDY: X-RAY - LEFT FOOT CLINICAL: Male, 78 years old. Swelling and bruising by the toes. Patient dropped a heavy object on foot recently. TECHNIQUE: 3 view(s) of the foot. COMPARISON: None. FINDINGS: There is an early enthesophyte involving the posterior superior calcaneus at the site of insertion of the Achilles tendon. There is a plantar calcaneal spur. Normal talus and remaining tarsal bones. Normal visualized subtalar, talonavicular, calcaneocuboid, tarsal and tarsometatarsal articulations. Normal metatarsi. Normal metatarsophalangeal joint of the great toe. Normal tibial and fibular sesamoid bones. Normal interphalangeal joint of the great toe. Mild subcutaneous articular sclerosis at the base of the first proximal phalanx. Normal distal phalanx of the great toe. Normal second through fifth metatarsophalangeal joints. Normal interphalangeal joints and phalanges of the lesser toes. Mild anterior soft tissue swelling of the mid and forefoot. There is no demonstrated fracture. RAD/Foot min 3 Views IMPRESSION: No acute fracture of the left foot. Electronically Signed: Marcelo Miller MD at 16:44 EST , Service support ,
== END ==
PROVIDERS: Family Provider Family Medicine; PCP Family Medicine; Referring Provider Family Medicine; Visit Provider Family Medicine
DX: S99.922A Unspecified injury of left foot, initial encounter (principal)
CPT/HCPCS: 73630

== ENCOUNTER → 2018-07-09 08:09 | Outpatient (CLI) | payer MEDICARE, BC, SELFPAY ==
[2018-06-26 23:14] VITALS: BMI 27.0
--- NOTE | 2018-07-09 08:17 | CT_ITS ---
STUDY: CT CHEST WITHOUT CONTRAST REASON FOR EXAM: Male, 78 years old. One-week history of a cough. The patient as a history of lung cancer. RADIATION DOSAGE (If Supplied By Facility): CTDIvol = ( 10.23 ) mGy, DLP = ( 349.74 ) mGycm TECHNIQUE: Transaxial imaging was performed without the administration of intravenous contrast material. Multiplanar coronal and sagittal images were reformatted. Individualized dose optimization techniques were used for this CT. COMPARISON: Comparison is made with prior CT scan of thorax dated December 07, 2015 and prior chest radiograph dated June 26, 2018. FINDINGS: Hyperinflation. Mild degree of reticular nodular pattern in the lungs suggestive of mild scarring. Focal areas of the airspace disease in both lower lobes slightly more prominent on the right side. This may represent an early infiltrate superimposed on the chronic interstitial scarring. Stable fibrocalcific scarring at the lung apices bilaterally. There is evidence of a 1.3 cm x 0.9 cm irregular soft tissue nodular density in the anterior lateral aspect of the right upper lobe as seen on axial image #46. This was not seen on prior study. There is no demonstrated pleural abnormality. There are calcifications of the coronary arteries. There are multiple small lymph nodes within the mediastinum, which are normal in size and morphology most compatible with reactive lymph hyperplasia. Normal hilar regions. Normal unenhanced pulmonary arteries. There is atherosclerotic calcification of the aortic arch with tortuosity and elongation of the aortic arch and descending thoracic aorta. There are multi-level degenerative changes of the thoracic spine. There is no demonstrated abnormality of the visualized upper abdomen. CT/Chest without Contrast IMPRESSION: 1.3 cm x 0.9 cm irregular nodular density in the peripheral anterior aspect of the right upper lobe as described. Correlation with a PET scan is recommended. Focal areas of groundglass appearance in the lower lobes suggestive of possible early infiltrate superimposed on scarring. Electronically Signed: Manav Kwok, at 8:50 EST , Service support ,
== END ==
PROVIDERS: Family Provider Family Medicine; PCP Family Medicine; Referring Provider Family Medicine; Visit Provider Family Medicine
DX: J47.9 Bronchiectasis, uncomplicated (principal)
CPT/HCPCS: 71250

== ENCOUNTER → 2018-07-19 08:29 | Outpatient (CLI) | payer MEDICARE, BC, SELFPAY ==
[2018-06-26 23:14] VITALS: BMI 27.0
[2018-07-19 10:06] LABS: Absolute Lymphocyte Count 1.93 X10^3/ul (0.83-4.51); Absolute Neutrophil Count 5.6 X10^3/uL (2.0-7.7); Basophil# 0.05 X10^3/uL; Basophil% 0.6 % (0-1); Eosinophil# 0.16 X10^3/uL; Eosinophils% 1.9 % (0-5); Hematocrit 42.9 % (40-54); Hemoglobin 14.3 g/dl (13.0-16.5); Lymphocyte # 1.93 X10^3/ul (4.0); Lymphocyte % 22.4 % (19-41); Mean Corp Hgb Conc 33.3 g/gl (32-36); Mean Corpuscular Volume 90.1 fL (80-94); Mean Platelet Vol. 11.6 fl (6.2-12.0); Monocyte# 0.87 X10^3/uL; Monocyte% 10.1 % (0-10); Neutrophil % 64.9 % (47-70); Platelet Count 187 K/mm3 (150-450); RBC Distribution Width CV 15.7 % (11.6-14.6); RBC Distribution Width SD 51.3 fl (35.1-43.9); Red Blood Count 4.76 M/mm3 (4.6-6.2); White Blood Count 8.6 K/mm3 (4.4-11.0)
[2018-07-19 10:13] LABS: POSITIVE COUNT NO; POSITIVE DIFFERENTIAL NO; POSITIVE MORPHOLOGY NO
[2018-07-19 10:31] LABS: BNP,B-Type NATRIURETIC PEPTIDE 20.4 pg/mL (0-100)
[2018-07-19 10:35] LABS: ALB/GLOB Ratio 0.9 RATIO (0.9-2.4); AST(SGOT) 25 U/L (15-37); Alanine Aminotransfer ALT/SGPT 29 U/L (16-61); Albumin, Serum 2.9 g/dL (3.2-5.0); Alkaline Phosphatase 107 U/L (45-117); Anion Gap 11 (5-15); BUN 66 mg/dL (7-18); BUN/Creat Ratio 13.2 RATIO (10-20); Calcium,Total 9.4 mg/dL (8.5-10.1); Chloride 105 mmol/L (98-107); EST Glomerular Filtration Rate 12 mL/min (>60); Est Glom Filt Rate - Afr Amer 15 mL/min (>60); Globulin 3.4 g/dL (2.2-4.2); Glucose 91 mg/dL (74-106); Potassium 4.2 mmol/L (3.5-5.1); Protein, Total 6.3 g/dL (6.4-8.2); Sodium Level 145 mmol/L (136-145)
== END ==
PROVIDERS: Family Provider Family Medicine; PCP Family Medicine; Referring Provider Family Medicine; Visit Provider Family Medicine
DX: I50.30 Unspecified diastolic (congestive) heart failure (principal)
CPT/HCPCS: 36415; 80053; 83735; 83880; 85025

== ENCOUNTER → 2018-07-22 08:03 | Outpatient (CLI) | payer MEDICARE, BC, SELFPAY ==
[2018-06-26 23:14] VITALS: BMI 27.0
[2018-07-22 10:37] LABS: Anion Gap 11 (5-15); BUN 69 mg/dL (7-18); Calcium,Total 9.3 mg/dL (8.5-10.1); Chloride 108 mmol/L (98-107); Creatinine, Serum 4.59 mg/dL (0.70-1.30); EST Glomerular Filtration Rate 13 mL/min (>60); Est Glom Filt Rate - Afr Amer 16 mL/min (>60); Glucose 133 mg/dL (74-106); Sodium Level 145 mmol/L (136-145)
== END ==
PROVIDERS: Family Provider Family Medicine; PCP Family Medicine; Visit Provider Family Medicine
DX: N28.9 Disorder of kidney and ureter, unspecified (principal)
CPT/HCPCS: 36415; 80048

== ENCOUNTER 2018-07-22 12:22 | Inpatient (IN) | payer MEDICARE, BC, SELFPAY ==
[2018-06-26 23:14] VITALS: BMI 27.0
[2018-07-22] VITALS (7 sets, daily range): BP systolic 110–145; BP diastolic 66–87; PULSE 86–106; RESP 15–18; TEMP 36.7–36.8; O2SAT 95–99; BMI 27.0; BMI 25.2
[2018-07-22 14:06] LABS: Bacteria 0 SEEN /hpf (None Seen); Mucous, Urine 0 SEEN /hpf (<or=2+); Squamous Epithelial Cells - UA 0 SEEN /hpf (0-5)
[2018-07-22 14:07] LABS: Color, Urine Yellow (Yellow); Glucose, Dipstick Normal (Normal); Ketone-Dipstick Negative (Negative); Leukocyte Esterase-Dipstick 25 /ul (Negative); Nitrite-Dipstick Negative (Negative); Occult Blood-Urine 250 /ul (Negative); Protein-Dipstick 30 mg/dl (Negative); Urine Bilirubin Dipstick Negative (Negative); Urine Clarity Sl. Cloudy (Clear); Urine Urobilinogen Normal (Normal)
[2018-07-22 14:16] LABS: Red Blood Cells-Urine 25-50 SEEN /hpf (0-5); White Blood Cells 0-5 SEEN /hpf (0-5)
[2018-07-22 14:27] LABS: Urine Sodium 64 mmol/L (Not Establ.)
[2018-07-22] MEDS: 0.9% Normal Saline 1,000 ML 150 ML IV (14:28)
--- NOTE | 2018-07-22 15:07 | ED.DCSUM_ITS ---
- ER Visit Summary Date of Service: 07/22/18 Chief Complaint: Abnormal labs History of Present Illness: The patient is a 78 M who presents the emergency department with laboratory findings of a creatinine of 4.59. Patient was admitted in June and since that time is had some feet swelling. Son states that he is also become incontinent patient states he has a strong stream once he does get started but son states that he frequently has to go back to the bathroom after he finishes. Patient denies any abdominal pain. He was seen on Sunday by primary care and noted to have a creatinine of 5. Medications were adjusted and the repeat of the labs today show a creatinine of 4.59. He has a history of BPH. Physical Examination: Afebrile vital signs are stable Gen: Well-nourished well-developed Head: Normocephalic atraumatic Eyes: Perrl EOMI ENT: TMs clear no rhinorrhea moist mucous membranes Neck: Supple no lymphadenopathy no JVD nontender CVS: Regular rate rhythm no murmurs normal S1-S2 Respiratory: No distress clear to auscultation bilaterally chest nontender Abdomen: Soft nontender significant only distended bladder above the level of the umbilicus normal bowel sounds no masses Back: Nontender Extremity: Nontender 1+ edema symmetric Skin: Normal color no rash Neuro: alert orientated ?3 CN II-XII intact normal strength sensation reflexes gait cerebellar Psych: Normal affect normal mood Test Results: His outpatient labs were reviewed. Urinary sodium and creatinine was obtained. Emergency Department Course and Treatment: A Miranda catheter was placed with about 3000 cc of urine removed. IV was placed and patient received IV fluids. Our plan is admission into the hospital for further care and treatment. Impression: 1. Postobstructive nephropathy This note was generated with [employer] dictation software. It may contain incorrect words, spelling, and punctuation that were not noted in review of the chart prior to signing ED Disposition - Plan for ED Patient: Referrals: Kevon Harrell MD [Primary Care Provider] -
--- NOTE | 2018-07-22 15:49 | CT_ITS ---
STUDY: CT ABDOMEN AND PELVIS WITHOUT CONTRAST REASON FOR EXAM: Male, 78 years old. Hematuria. RADIATION DOSAGE (If Supplied By Facility): CTDIvol = ( 8.77 ) mGy, DLP = ( 394.29 ) mGycm TECHNIQUE: Transaxial images were obtained from the dome of the diaphragm to the symphysis pubis without oral contrast, and without intravenous contrast. Sagittal and coronal images were reconstructed. Individualized dose optimization techniques were used for this CT. COMPARISON: 12/24/2013. FINDINGS: Lung bases are clear. Visualized heart is normal. The liver is unremarkable. The gallbladder is unremarkable. The spleen and pancreas are unremarkable. The adrenal glands are normal. There is mild right hydronephrosis. There is mild dilation of the proximal ureter. There is no right renal or ureteral stone. There is a 1 cm hyperdense lesion in the upper pole of the left kidney. There is a 1.8 cm low-attenuation lesion in the upper pole with mild peripheral calcification. There is moderate left hydronephrosis. No stones are seen within the renal collecting system. There is mild left hydroureter. No evidence of obstructing stone. The aorta is normal in caliber. There is no free fluid, free air, or organized collection. No bowel obstruction or inflammatory change. Normal appendix. The bladder is catheterized and decompressed. No bladder calcifications are noted. Prostate gland is enlarged measuring 6.1 x 6.1 x 6.3 cm. Normal abdominal wall. Normal osseous structures. CT/Abdomen/Pelvis without Cont IMPRESSION: 1. Bilateral hydroureteronephrosis, greater on the left. No demonstrated stones. Consider outlet obstruction, less likely bilateral small, nonopaque, or passed stones. 2. Prostatic enlargement. Electronically Signed: Daysi Fernando MD at 17:52 EDT Tel , Service support ,
--- NOTE | 2018-07-22 16:31 | HP.PCM_ITS ---
Problem List (1) Lower urinary tract symptoms Status: Acute (2) Microscopic hematuria Status: Acute (3) Hematuria Status: Acute (4) Viral syndrome Status: Resolved (5) COPD exacerbation Status: Resolved (6) Hypokalemia Status: Resolved (7) Diabetes mellitus, type II Status: Chronic Qualifiers: Diabetes mellitus intermediate accountant insulin use: without nursing home use Diabetes mellitus complication status: with unspecified complications Qualified Code(s): E11.8 - Type 2 diabetes mellitus with unspecified complications (8) Cheek mass Status: Chronic Comment: 6 mm soft tissue mass left supramedial cheek by lateral nose (9) Personal history of skin cancer Status: Chronic (10) Smoker Status: Chronic (11) Shortness of breath Status: Acute (12) Tobacco use Status: Chronic (13) COPD (chronic obstructive pulmonary disease) Status: Chronic Qualifiers: COPD type: unspecified COPD Qualified Code(s): J44.9 - Chronic obstructive pulmonary disease, unspecified (14) HLD (hyperlipidemia) Status: Chronic Qualifiers: Hyperlipidemia type: pure hypercholesterolemia Qualified Code(s): E78.00 - Pure hypercholesterolemia, unspecified; E78.0 - Pure hypercholesterolemia (15) HTN (hypertension) Status: Chronic Qualifiers: Hypertension type: essential hypertension Qualified Code(s): I10 - Essential (primary) hypertension (16) Stage 1 lung cancer, RUL mass Status: Chronic (17) Smoker Status: Chronic (18) History of basal cell carcinoma Status: Chronic (19) BCC left upper neck by earlobe Status: Chronic History of Present Illness Date of Admission: 07/22/18 Chief Complaint: Obstructive lower urinary tract symptoms for about 1 month The patient is a 78 year old M with multiple comorbidities as listed above including kidney stone spontaneous passage in the past came to ED with lower urinary tract symptoms for about 1 month. Patient said after 2 days of his discharge for COPD exacerbation on June 29, 2018 patient started having increased frequency, urgency, urinary incontinence like dribbling of urine and incomplete emptying of bladder. Patient denies burning micturition/lower abdominal pain/Renal angle pain. Patient denies hematuria. Patient has seen Dr. He in the past for kidney stones. He has also seen Dr. Morris in October 2018. In the past he had cystoscopy about a year ago by Dr. He but denies any history of lithotripsy or urinary stent. Denies fever/chills. He has chronic cough secondary to COPD and unable to cough out sputum. Patient also said he had bilateral lower extremity swelling for about a month for which Lasix was started by PCP. In ED, he did not had fever or chills. No tachypnea or hypoxia. Preliminary blood work shows BUN/creatinine, 66/ 5.0 on 07/19 and today 4.59. BUN 69. Patient was given IV fluid. No recent imaging test. WBC count 8.6 thousand on 07/19/2018. Miranda catheter was inserted in the ED and 4 L came out in Miranda urobag. There is also hematuria in urine of Miranda catheter tube. Past Medical History Past Medical History (Chronic Problems): Chronic Problems (Last Updated 09/26/17 @ 12:38 by Cesilia Stephens) Diabetes mellitus, type II (Chronic) Cheek mass (Chronic) 6 mm soft tissue mass left supramedial cheek by lateral nose Personal history of skin cancer (Chronic) Smoker (Chronic) Tobacco use (Chronic) COPD (chronic obstructive pulmonary disease) (Chronic) HLD (hyperlipidemia) (Chronic) HTN (hypertension) (Chronic) Stage 1 lung cancer, RUL mass (Chronic) Smoker (Chronic) History of basal cell carcinoma (Chronic) BCC left upper neck by earlobe (Chronic) Medical History: Medical History (Last Updated 09/26/17 @ 12:38 by Cesilia Stephens) Actinic keratosis L57.0 SUPERIOR HELICAL RIM RIGHT EAR Arthritis M19.90 COPD (chronic obstructive pulmonary disease) J44.9 Diabetes mellitus E11.9 Edema R60.9 Fever blister B00.1 History of alcohol abuse Z87.898 History of chicken pox Z86.19 Keratosis L57.0 PIGMENTED SEBORRHEIC KERATOSIS LEFT POSTERIOR EAR Kidney stones N20.0 Lung cancer C34.90 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 LEFT NASAL TIP LEFT SUPRAMEDIAL CHEEK LEFT UPPER NECK BY EARLOBE, MULTIFOCAL AND SUPERFICIAL Sinus problem J34.9 Stroke I63.9 Stroke I63.9 Tonsillitis J03.90 High blood pressure I10 Allergies BEE STINGS Allergy (Severe, Uncoded 06/26/18 19:14) Anaphylaxis Home Medications: Ambulatory Orders Medication Instructions Recorded Multivitamins,Therapeutic 1 tab PO DAILY 12/22/13 [Multivitamin] Latanoprost 0.005% [Xalatan 1 drp LEFT EYE QHS 01/07/15 Opthalmic] Aspirin [Aspirin, Baby] 81 mg PO DAILY@0800 06/30/16 Fluticasone/Umeclidin/Vilanter 1 each IH DAILY 07/22/18 [[place] Ellipta 100-62.5-25] Ropinirole HCl 1.5 mg PO DAILY 07/22/18 Ropinirole HCl 3 mg PO BID 07/22/18 Surgical History: Surgical History (Last Updated 09/26/17 @ 14:59 by Cesilia Stephens) HYDROCELE History of basal cell carcinoma excision Z98.890, Z85.828 RECONSTRUCTION 10 MM BASAL CELL CARCINOMA WOUND DEFORMITY LEFT NASAL TIP WITH BILOBED TRANSPOSITION SKIN FLAP RECONSTRUCTION - 03/01/09 EXCISION 1.8 CM PIGMENTED BASAL CELL CARCINOMA LEFT UPPER NECK BY EARLOBE WITH RHOMBOID TRANSPOSITION SKIN FLAP RECONSTRUCTION (24.5 CM2) - 01/14/15 History of excision of lesion Z98.890, Z87.2 EXCISION 7 MM PIGMENTED LESION LEFT NASAL TIP AND EXCISION 12 MM LESION LEFT LATERAL ABDOMINAL WALL WITH 4 CM CLOSURE 02/22/09 EXCISION 6 MM PIGMENTED LESION LEFT SUPRAMEDIAL CHEEK WITH 2 CM LAYERED CLOSURE AND EXCISION 5 MM PIGMENTED LESION LEFT POSTERIOR EAR WITH 15 MM LAYERED CLOSURE AND PARTIAL EXCISION 18 MM PIGMENTED LESION LEFT UPPER NECK BY EARLOBE WITH 3 CM LAYERED CLOSURE AND INTRADERMAL EXCISION 6 MM ACTINIC LESION SUPERIOR HELICAL RIM RIGHT EAR 08/27/14 History of eye surgery Z98.890 History of right knee surgery Z98.890 Sebaceous cyst of right axilla L72.3 Soft tissue mass M79.9 EXCISION SOFT TISSUE MASS RIGHT UPPER BACK Surgical History: - - R hydrocele surgery, several basal cell CA skin removal, removal of cyst right knee. Psychiatric History: No pertinent psych hx Smoking Status: Current every day smoker Tobacco Use: Cigarettes - *Family History Maternal Family History: Family History (Last Updated 09/26/17 @ 12:19 by Cesilia Stephens) Father Heart disease Hypertension CVA (cerebral vascular accident) Grandmother Cancer Grandfather CVA (cerebral vascular accident) History Items: COPD Paternal Family History: Family History (Last Updated 09/26/17 @ 12:19 by Cesilia Stephens) Father Heart disease Hypertension CVA (cerebral vascular accident) Grandmother Cancer Grandfather CVA (cerebral vascular accident) History Items: Heart Disease, Hypertension, Stroke Review of Systems Constitutional: Denies: Chills, Fever, Weight Change HEENT: Denies: Head Aches, Sinus Congestion, Sinus Drainage Cardiovascular: Denies: Chest Pain, Palpitations Respiratory: Reports: Cough - Chronic cough, - - Mild chest congestion. Denies: Shortness of Breath, Shortness of breath at rest, Sputum production Gastrointestinal: Reports: - - Hematuria on Miranda catheter tube. Denies: Abdominal Pain, Constipation, Diarrhea, Nausea, Vomiting Genitourinary: Reports: Frequency, Hematuria, Incontinence, Retention. Denies: Dysuria Musculoskeletal: Reports: Back Pain. Denies: Joint Pain, Joint Tenderness Skin: Denies: Rash, Wounds Neurological: Denies: Numbness, Tingling, Focal weakness Psychiatric: Denies: Anxiety, Depression, Homicidal Ideations, Suicidal Ideations Hematologic/ Lymphatic: Denies: Easy Bruising, Easy Bleeding VTE Information - Inpt Only VTE Present on Admission: No VTE Mechan Device Prophylaxis: SCD's VTE Pharm Prophylaxis ordered?: No Reason prophylaxis not ordered:: Medical Contraindication Patient Problems: Active and Suspected Problems (Last Updated 09/26/17 @ 12:38 by Cesilia Stephens) Lower urinary tract symptoms (Acute) Microscopic hematuria (Acute) Hematuria (Acute) - Physical Exam General: Alert, Oriented x3, Cooperative HEENT: Atraumatic, PERRLA, EOMI, Normocephalic Neck: Supple, No JVD, Negative Carotid Bruits Lungs: Diminished - Air entry is diminished bilaterally, Rhonchi Cardiovascular: Regular rate, Regular Rhythm, Normal S1, Normal S2, No murmurs Abdomen: Bowel Sounds Present, Soft, Non Tender, Non-Distended, No Hepato-s plenomegaly Extremities: Capillary Refill Less than 3 Seconds, Edema - Bilateral lower extremity edema Skin: No rashes, No breakdown Musculoskeletal: No Tenderness to Palpation of Joints or Extremities, Arthritic Changes Lymphatic: No Cervical, Supraclavicular, or Inguinal Adenopathy Neurological: Cranial nerves II-XII grossly intact, Deep Tendon Reflexes 2+/4 and Symmetrical, Neuro grossly intact Psych/Mental Status: Normal Affect, Appropriate Vital Signs Temp Pulse Resp BP Pulse Ox 98.2 F 88 16 140/83 H 95 07/22/18 12:23 07/22/18 16:10 07/22/18 14:31 07/22/18 12:23 07/22/18 12:23 Oxygen Delivery Method Room Air Weight: 170 lb 10.205 oz Body Mass Index (BMI) 25.2 Finger Stick Blood Glucose 115 Laboratory Tests Past 24 Hrs 07/22/18 07/22/18 07/22/18 13:55 13:55 13:55 Urine Color Yellow Urine Clarity Sl. Cloudy Urine pH 7.0 Ur Specific [place] 1.010 Urine Protein 30 H Urine Glucose (UA) Normal Urine Ketones Negative Urine Occult Blood 250 H Urine Nitrite Negative Urine Bilirubin Negative Urine Urobilinogen Normal Ur Leukocyte Esterase 25 H Urine RBC 25-50 SEEN Urine WBC 0-5 SEEN Ur Squamous Epith Cells 0 SEEN Urine Bacteria 0 SEEN Urine Mucus 0 SEEN Ur Random Sodium 64 Urine Creatinine 87.00 Assessment/Plan All Active Problems (Last Updated 09/26/17 @ 12:38 by Cesilia Stephens) Viral syndrome (Resolved) COPD exacerbation (Resolved) Hypokalemia (Resolved) Lower urinary tract symptoms (Acute) Microscopic hematuria (Acute) Hematuria (Acute) Shortness of breath (Acute) The patient is a 78 year old M with multiple comorbidities as listed above including kidney stone spontaneous passage in the past came to ED with lower urinary tract symptoms for about 1 month. Patient said after 2 days of his discharge for COPD exacerbation on June 29, 2018 patient started having increased frequency, urgency, urinary incontinence like dribbling of urine and incomplete emptying of bladder. Patient denies burning micturition/lower abdominal pain/Renal angle pain. Patient denies hematuria. Patient has seen Dr. He in the past for kidney stones. He has also seen Dr. Morris in October 2018. In the past he had cystoscopy about a year ago by Dr. He but denies any history of lithotripsy or urinary stent. Denies fever/chills. He has chronic cough secondary to COPD and unable to cough out sputum. Patient also said he had bilateral lower extremity swelling for about a month for which Lasix was started by PCP. In ED, he did not had fever or chills. No tachypnea or hypoxia. Preliminary blood work shows BUN/creatinine, 66/ 5.0 on 07/19 and today 4.59. BUN 69. Patient was given IV fluid. No recent imaging test. WBC count 8.6 thousand on 07/19/2018. Miranda catheter was inserted in the ED and 4 L came out in Miranda urobag. There is also hematuria in urine of Miranda catheter tube. 1. Acute on chronic urine retention secondary to bladder outlet obstruction with hematuria: Exact etiology unclear. Possible bilateral kidney/ureteric stone or BPH/neurogenic bladder: [facility] abdomen without contrast for kidney stone protocol ordered. Continue IV fluid normal saline at 100 per hour. BMP on 07/22 shows anion gap 11, bicarb 26, sodium 145, K4.0. Urology consult. 2. Acute kidney injury most probably secondary to multiple etiologies: Lasix, obstructive uropathy/prerenal: UA is negative of bacteria/WBC. IV fluid normal saline. Urology consult. As per the ER physician, nursing staff did not had problem in passing Miranda catheter. CBC ordered. Urine culture ordered. 3. COPD: Does not seem to be in exacerbation. Continue bronchodilator. Mucinex added. No fever/chills. 4. Diabetes mellitus type 2: Accu-Chek before meals and at bedtime and cover with NovoLog sliding scale. 5. Stage I lung cancer, chronic cigarette smoker: As per outpatient. On nicotine patch 6. Other comorbidities include hypertension, dyslipidemia: Home medication reconciliation done. DVT prophylaxis: pharmacological prophylaxis is contraindicated secondary to hematuria. Bilateral SCDs Laboratory [id number]/11/19 13:55: Urine Creatinine 87.00 07/22/18 13:55: Urine Color Yellow, Urine Clarity Sl. Cloudy, Urine pH 7.0, Ur Specific [place] 1.010, Urine Protein 30 H, Urine Glucose (UA) Normal, Urine Ketones Negative, Urine Occult Blood 250 H, Urine Nitrite Negative, Urine Bilirubin Negative, Urine Urobilinogen Normal, Ur Leukocyte Esterase 25 H, Urine RBC 25-50 SEEN, Urine WBC 0-5 SEEN, Ur Squamous Epith Cells 0 SEEN, Urine Bacteria 0 SEEN, Urine Mucus 0 SEEN 07/22/18 13:55: Ur Random Sodium 64 Code Visit Inpatient E&M: 23546 Init Hosp L3
--- NOTE | 2018-07-22 16:55 | RAD_ITS ---
STUDY: X-RAY CHEST REASON FOR EXAM: Male, 78 years old. COPD, cough TECHNIQUE: PA and lateral views of the chest. COMPARISON: Previous study of June 26, 2018 FINDINGS: There is hyperinflation of the lungs consistent with chronic obstructive lung disease (COPD). There is no demonstrated pleural abnormality. Normal size heart. Normal mediastinum and hailey. Normal visualized pulmonary arteries. There are calcified plaques of the aortic arch. Normal visualized thoracic spine. Normal visualized ribs, clavicles, and shoulders. There is no demonstrated abnormality of the visualized soft tissue structures of the upper abdomen. RAD/Chest PA and Lateral IMPRESSION: Findings consistent with COPD. Calcified plaques of the aortic arch. No acute cardiopulmonary disease process is seen. Chest findings are stable in the interval. Electronically Signed: Noam Lozano MD at 21:36 EDT , Service support ,
--- NOTE | 2018-07-22 17:07 | CASEMGMT ---
RN CM Assessment Introduced role of RN KATE to patient umair Patrick Jr as patient was speaking with other staff at time. Per Umair Patrick he is patient POA. Care providers, pharmacy, and demographics verified. Presentation: Admitted for Obstructive Uropathy, CC: Sent by PCP for abnl labs- concern for kidney function Re-Admit: Yes, 06/26-06/29/18 for COPD Exacerbation. Per son patient has started declining since his last admission and needs some assistance with home ADL's. PCP: Dr Kevon Harrell Specialists: Pulm @[facility]- Dr Gordillo, Onc @[facility]- Dr Sanchez [facility] Insurance: Medicare A&B, [place]. Per son patient is a [place] but is not service connected. Prescription Benefit: Yes LNOK: Umair Martínez Living Arrangements: Retired, lives alone in a SS Home, No steps to enter. Independent with ambulation and ADL's. Umair Patrick has been coming 2-3/day since last hospital DC to assist patient. Transportation: Has not driven since mid June 2018. Umair Patrick transporting and will transport on DC. DME: [employer] HHC: None in the past, U[facility]ir [facility]. Had an appointment with [facility] this morning 07/22/18 but states patient currently did not qualify for aide services. SNF: None in the past DC PLAN: Home with possible HH RN for [facility]. Amanda Padilla RNCM
[2018-07-22 17:33] LABS: Absolute Lymphocyte Count 1.75 X10^3/ul (0.83-4.51); Absolute Neutrophil Count 4.4 X10^3/uL (2.0-7.7); Basophil# 0.04 X10^3/uL; Basophil% 0.6 % (0-1); Eosinophil# 0.19 X10^3/uL; Eosinophils% 2.7 % (0-5); Hematocrit 41.8 % (40-54); Hemoglobin 13.9 g/dl (13.0-16.5); Lymphocyte # 1.75 X10^3/ul (4.0); Mean Corp Hgb Conc 33.3 g/gl (32-36); Mean Corpuscular Hgb 30.2 pg (27.0-32.0); Mean Corpuscular Volume 90.7 fL (80-94); Monocyte# 0.64 X10^3/uL; Monocyte% 9.1 % (0-10); Neutrophil # 4.36 X10^3/uL (2.7-7.7); Neutrophil % 62.2 % (47-70); POSITIVE COUNT NO; POSITIVE DIFFERENTIAL NO; POSITIVE MORPHOLOGY NO; Platelet Count 175 K/mm3 (150-450); RBC Distribution Width CV 15.7 % (11.6-14.6); RBC Distribution Width SD 51.4 fl (35.1-43.9); Red Blood Count 4.61 M/mm3 (4.6-6.2)
[2018-07-22 17:36] LABS: Bedside Glucose 82 mg/dL (70-110)
[2018-07-22] MEDS: Glucerna Shake 120 ML LIQUID PO (18:21)
[2018-07-22] MEDS: Tamsulosin HCl 0.4 MG Capsule PO (18:21)
[2018-07-22] MEDS: Budesonide Respules 0.5 MG/2 ML AMPUL.NEB. INHALATION (19:18)
[2018-07-22] MEDS: Ipratropium/Albuterol Sulfate 3 ML AMPUL.NEB INHALATION (19:18)
[2018-07-22] MEDS: Pramipexole Di-HCl 0.5 MG Tablet 1.5 MG PO (22:16)
[2018-07-22] MEDS: Latanoprost 0.005% 1 Bottle 1 DRP LEFT EYE (22:16)
[2018-07-22] MEDS: guaiFENesin 1,200 MG Tablet 1200 MG PO (22:16)
[2018-07-22 22:27] LABS: Bedside Glucose 136 mg/dL (70-110)
[2018-07-22] MEDS: 0.9% Normal Saline 1,000 ML 100 ML IV (23:23)
[2018-07-22] MEDS: Zolpidem Tartrate 5 MG Tablet PO (23:23)
[2018-07-23] VITALS (7 sets, daily range): BP systolic 117–142; BP diastolic 70–86; PULSE 86–101; RESP 16–18; TEMP 36.7–37; O2SAT 95–98
[2018-07-23] MEDS: Pramipexole Di-HCl 0.5 MG Tablet 1.5 MG PO ×2 (05:19→21:40)
[2018-07-23] MEDS: Budesonide Respules 0.5 MG/2 ML AMPUL.NEB. INHALATION ×2 (06:54→19:16)
[2018-07-23] MEDS: Ipratropium/Albuterol Sulfate 3 ML AMPUL.NEB INHALATION ×3 (06:54→19:15)
[2018-07-23 07:06] LABS: Bedside Glucose 98 mg/dL (70-110)
[2018-07-23 07:24] LABS: Absolute Lymphocyte Count 1.87 X10^3/ul (0.83-4.51); Absolute Neutrophil Count 6.9 X10^3/uL (2.0-7.7); Basophil# 0.03 X10^3/uL; Basophil% 0.3 % (0-1); Eosinophil# 0.18 X10^3/uL; Eosinophils% 1.8 % (0-5); Hematocrit 39.8 % (40-54); Hemoglobin 13.2 g/dl (13.0-16.5); Lymphocyte # 1.87 X10^3/ul (4.0); Lymphocyte % 18.9 % (19-41); Mean Corp Hgb Conc 33.2 g/gl (32-36); Mean Corpuscular Hgb 30.2 pg (27.0-32.0); Mean Corpuscular Volume 91.1 fL (80-94); Mean Platelet Vol. 11.7 fl (6.2-12.0); Monocyte# 0.96 X10^3/uL; Monocyte% 9.7 % (0-10); Neutrophil # 6.85 X10^3/uL (2.7-7.7); POSITIVE COUNT NO; POSITIVE DIFFERENTIAL NO; POSITIVE MORPHOLOGY NO; Platelet Count 166 K/mm3 (150-450); RBC Distribution Width CV 15.5 % (11.6-14.6); RBC Distribution Width SD 50.9 fl (35.1-43.9); Red Blood Count 4.37 M/mm3 (4.6-6.2); White Blood Count 9.9 K/mm3 (4.4-11.0)
--- NOTE | 2018-07-23 07:37 | CON.PCM_ITS ---
Reason for Consult Date of Consultation: 07/23/18 Reason for Consultation: Urinary retention History of Present Illness: The patient is a 78 year old male with multiple medical problems who is a patient of our practice. Has a history of kidney stones in the past. Has a history of enlarged prostate and prior cystoscopy done in 2014 demonstrated bilateral severe hypertrophy and obstruction. He was recommended to go on medical therapy but did not continue with finasteride as instructed. Also in the last 2 years is failed to follow-up in the office for routine checkups. He presented to the hospital with retention of urine and over 3000 mL of urine was drained from his bladder and he had an elevated creatinine. He currently has a catheter in place the urine is a wine color and blood is slowly clearing in the not too worried about the blood typically as a result of distention of the bladder. CAT scan was reviewed prior cystoscopy was reviewed Past Medical History Past Medical History (Chronic Problems): Chronic Problems (Last Updated 09/26/17 @ 12:38 by Cesilia Stephens) Diabetes mellitus, type II (Chronic) Cheek mass (Chronic) 6 mm soft tissue mass left supramedial cheek by lateral nose Personal history of skin cancer (Chronic) Smoker (Chronic) Tobacco use (Chronic) COPD (chronic obstructive pulmonary disease) (Chronic) HLD (hyperlipidemia) (Chronic) HTN (hypertension) (Chronic) Stage 1 lung cancer, RUL mass (Chronic) Smoker (Chronic) History of basal cell carcinoma (Chronic) BCC left upper neck by earlobe (Chronic) Medical History: Medical History (Last Reviewed 07/23/18 @ 07:39 by Stone Morris MD) Actinic keratosis L57.0 SUPERIOR HELICAL RIM RIGHT EAR Arthritis M19.90 COPD (chronic obstructive pulmonary disease) J44.9 Diabetes mellitus E11.9 Edema R60.9 Fever blister B00.1 History of alcohol abuse Z87.898 History of chicken pox Z86.19 Keratosis L57.0 PIGMENTED SEBORRHEIC KERATOSIS LEFT POSTERIOR EAR Kidney stones N20.0 Lung cancer C34.90 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 LEFT NASAL TIP LEFT SUPRAMEDIAL CHEEK LEFT UPPER NECK BY EARLOBE, MULTIFOCAL AND SUPERFICIAL Sinus problem J34.9 Stroke I63.9 Stroke I63.9 Tonsillitis J03.90 High blood pressure I10 Allergies BEE STINGS Allergy (Severe, Uncoded 06/26/18 19:14) Anaphylaxis Home Medications: Ambulatory Orders Medication Instructions Recorded Multivitamins,Therapeutic 1 tab PO DAILY 12/22/13 [Multivitamin] Latanoprost 0.005% [Xalatan 1 drp LEFT EYE QHS 01/07/15 Opthalmic] Aspirin [Aspirin, Baby] 81 mg PO DAILY@0800 06/30/16 Fluticasone/Umeclidin/Vilanter 1 each IH DAILY 07/22/18 [Trelegy Ellipta 100-62.5-25] Ropinirole HCl 1.5 mg PO DAILY 07/22/18 Ropinirole HCl 3 mg PO BID 07/22/18 Surgical History: Surgical History (Last Reviewed 07/23/18 @ 07:39 by Stone Morris MD) HYDROCELE History of basal cell carcinoma excision Z98.890, Z85.828 RECONSTRUCTION 10 MM BASAL CELL CARCINOMA WOUND DEFORMITY LEFT NASAL TIP WITH BILOBED TRANSPOSITION SKIN FLAP RECONSTRUCTION - 03/01/09 EXCISION 1.8 CM PIGMENTED BASAL CELL CARCINOMA LEFT UPPER NECK BY EARLOBE WITH RHOMBOID TRANSPOSITION SKIN FLAP RECONSTRUCTION (24.5 CM2) - 01/14/15 History of excision of lesion Z98.890, Z87.2 EXCISION 7 MM PIGMENTED LESION LEFT NASAL TIP AND EXCISION 12 MM LESION LEFT LATERAL ABDOMINAL WALL WITH 4 CM CLOSURE 02/22/09 EXCISION 6 MM PIGMENTED LESION LEFT SUPRAMEDIAL CHEEK WITH 2 CM LAYERED CLOSURE AND EXCISION 5 MM PIGMENTED LESION LEFT POSTERIOR EAR WITH 15 MM LAYERED CLOSURE AND PARTIAL EXCISION 18 MM PIGMENTED LESION LEFT UPPER NECK BY EARLOBE WITH 3 CM LAYERED CLOSURE AND INTRADERMAL EXCISION 6 MM ACTINIC LESION SUPERIOR HELICAL RIM RIGHT EAR 08/27/14 History of eye surgery Z98.890 History of right knee surgery Z98.890 Sebaceous cyst of right axilla L72.3 Soft tissue mass M79.9 EXCISION SOFT TISSUE MASS RIGHT UPPER BACK Surgical History: - - R hydrocele surgery, several basal cell CA skin removal, removal of cyst right knee. Psychiatric History: No pertinent psych hx Smoking Status: Current every day smoker Tobacco Use: Cigarettes - *Family History Maternal Family History: Family History (Last Reviewed 07/23/18 @ 07:39 by Stone Morris MD) Father Heart disease Hypertension CVA (cerebral vascular accident) Grandmother Cancer Grandfather CVA (cerebral vascular accident) History Items: COPD Paternal Family History: Family History (Last Reviewed 07/23/18 @ 07:39 by Stone Morris MD) Father Heart disease Hypertension CVA (cerebral vascular accident) Grandmother Cancer Grandfather CVA (cerebral vascular accident) History Items: Heart Disease, Hypertension, Stroke Review of Systems Constitutional: Denies: Chills, Fever, Weight Change HEENT: Denies: Head Aches, Sinus Congestion, Sinus Drainage Cardiovascular: Denies: Chest Pain, Palpitations Respiratory: Denies: Cough, Shortness of breath at rest, Sputum production Gastrointestinal: Denies: Abdominal Pain, Nausea, Vomiting Genitourinary: Reports: Retention. Denies: Dysuria Musculoskeletal: Denies: Joint Pain, Joint Tenderness Skin: Denies: Rash, Wounds Neurological: Denies: Numbness, Tingling, Focal weakness Psychiatric: Denies: Anxiety, Depression, Homicidal Ideations, Suicidal Ideations Hematologic/ Lymphatic: Denies: Easy Bruising, Easy Bleeding Physical Exam - Physical Exam Vital Signs Temp 98.2 F 07/23/18 04:31 Pulse 93 07/23/18 04:31 Resp 16 07/23/18 04:31 BP 117/70 07/23/18 04:31 Pulse Ox 95 07/23/18 04:31 Intake & Output 07/21/18 07/22/18 07/23/18 23:59 23:59 23:59 Intake Total 1096 / 1096 896 / 896 Output Total 1800 / 1800 950 / 950 Balance -704 / -704 -54 / -54 Weight: 77.4 kg Intake: Oral 490 / 490 300 / 300 IV fluid/meds 606 / 606 596 / 596 Output: Urine 1800 / 1800 950 / 950 General: Alert, Oriented x3 HEENT: Atraumatic Oral: Moist Mucosa Neck: Supple Lungs: Normal air movement Cardiovascular: Regular rate, Regular Rhythm Abdomen: Soft Rectal: Exam deferred Laboratory Tests Past 24 Hrs 07/22/18 07/22/18 07/22/18 12:50 13:55 13:55 WBC 7.0 RBC 4.61 Hgb 13.9 Hct 41.8 MCV 90.7 MCH 30.2 MCHC 33.3 RDW 15.7 H RDW Differential 51.4 H Plt Count 175 MPV 12.0 Immature Gran % (Auto) 0.400 Neut % (Auto) 62.2 Lymph % (Auto) 25.0 [place] % (Auto) 9.1 Eos % (Auto) 2.7 Baso % (Auto) 0.6 Absolute Neuts (auto) 4.4 Absolute Lymphs (auto) 1.75 Total Counted Not Reportable Sodium Potassium Chloride Carbon Dioxide Anion Gap BUN Creatinine Est GFR (MDRD) Af Amer Est GFR (MDRD) Non-Af BUN/Creatinine Ratio Glucose Calcium Urine Color Yellow Urine Clarity Sl. Cloudy Urine pH 7.0 Ur Specific [place] 1.010 Urine Protein 30 H Urine Glucose (UA) Normal Urine Ketones Negative Urine Occult Blood 250 H Urine Nitrite Negative Urine Bilirubin Negative Urine Urobilinogen Normal Ur Leukocyte Esterase 25 H Urine RBC 25-50 SEEN Urine WBC 0-5 SEEN Ur Squamous Epith Cells 0 SEEN Urine Bacteria 0 SEEN Urine Mucus 0 SEEN Ur Random Sodium Urine Creatinine 87.00 07/22/18 07/23/18 07/23/18 13:55 06:40 06:40 WBC 9.9 RBC 4.37 L Hgb 13.2 Hct 39.8 L MCV 91.1 MCH 30.2 MCHC 33.2 RDW 15.5 H RDW Differential 50.9 H Plt Count 166 MPV 11.7 Immature Gran % (Auto) 0.300 Neut % (Auto) 69.0 Lymph % (Auto) 18.9 L [place] % (Auto) 9.7 Eos % (Auto) 1.8 Baso % (Auto) 0.3 Absolute Neuts (auto) 6.9 Absolute Lymphs (auto) 1.87 Total Counted Not Reportable Sodium Pending Potassium Pending Chloride Pending Carbon Dioxide Pending Anion Gap Pending BUN Pending Creatinine Pending Est GFR (MDRD) Af Amer Pending Est GFR (MDRD) Non-Af Pending BUN/Creatinine Ratio Pending Glucose Pending Calcium Pending Urine Color Urine Clarity Urine pH Ur Specific [place] Urine Protein Urine Glucose (UA) Urine Ketones Urine Occult Blood Urine Nitrite Urine Bilirubin Urine Urobilinogen Ur Leukocyte Esterase Urine RBC Urine WBC Ur Squamous Epith Cells Urine Bacteria Urine Mucus Ur Random Sodium 64 Urine Creatinine Assessment/Plan All Active Problems (Last Updated 09/26/17 @ 12:38 by Cesilia Stephens) Viral syndrome (Resolved) COPD exacerbation (Resolved) Hypokalemia (Resolved) Lower urinary tract symptoms (Acute) Microscopic hematuria (Acute) Hematuria (Acute) Shortness of breath (Acute) 78-year-old male with multiple medical problems, has a history of an elevated PSA in the past but we have not see him in the office for quite some time not sure what his current PSA would be but given his current catheter and situation when check a PSA probably will be artificially elevated. History of kidney stones with currently that is clear. History of BPH and obstruction has failed follow-up and failed medical therapy as an outpatient presented to [facility] with a hospital. We have not seen him in the office for a few years but for now recommend leave the catheter in place the urine will clear up with time, he needs to follow-up in my office for an appointment at that point we will check his prostate and will probably set him up for a transurethral resection of the prostate and prostate biopsies as an outpatient setting. Patient was agreeable with this he will go home with a catheter once discharged he should follow-up call the office to make an appointment to see me. If any questions please give me a call.
[2018-07-23 07:58] LABS: Anion Gap 4 (5-15); BUN 36 mg/dL (7-18); BUN/Creat Ratio 20.1 RATIO (10-20); Calcium,Total 8.5 mg/dL (8.5-10.1); Chloride 111 mmol/L (98-107); Creatinine, Serum 1.79 mg/dL (0.70-1.30); EST Glomerular Filtration Rate 39 mL/min (>60); Est Glom Filt Rate - Afr Amer 47 mL/min (>60); Estimated Creatinine Clearance 33.46 ml/min; Glucose 92 mg/dL (74-106); Potassium 3.6 mmol/L (3.5-5.1); Sodium Level 142 mmol/L (136-145)
[2018-07-23] MEDS: 0.9% Normal Saline 1,000 ML 100 ML IV ×2 (09:06→17:10)
[2018-07-23] MEDS: Glucerna Shake 120 ML LIQUID PO ×3 (09:07→17:09)
[2018-07-23] MEDS: Aspirin 81 MG TAB.CHEW PO (09:07)
[2018-07-23] MEDS: Multivitamins,Therapeutic Tablet 1 TABLET PO (09:07)
[2018-07-23] MEDS: guaiFENesin 1,200 MG Tablet 1200 MG PO ×2 (09:07→21:39)
--- NOTE | 2018-07-23 10:20 | PN_ITS ---
Patient Problems: Active and Suspected Problems (Last Reviewed 07/23/18 @ 07:39 by Stone Morris MD) Lower urinary tract symptoms (Acute) Microscopic hematuria (Acute) Hematuria (Acute) Subjective: Patient seen and examined. He was admitted with a complaint of elevated creatinine was found to have bladder outlet obstruction due to BPH. He had over 3 L of urine drained from his catheter of the catheter was inserted on admission yesterday. He has no complaints this morning and feels well. Review of systems otherwise negative. He had a Miranda catheter in which was draining blood-tinged urine. His son was by his bedside and son had questions about why patient could not have surgery while she was in the hospital this time.. Review of urology notes, patient had been diagnosed with BPH in 2014 and was put on finasteride. However he had not been compliant with finasteride and had also been lost to follow-up. Patient also states that urology recommended surgery to him this morning but he is not on board with the idea. Vitals/I&O's: Vital Signs Temp Pulse Resp BP Pulse Ox 98.6 F 101 H 18 127/86 H 97 07/23/18 09:02 07/23/18 09:02 07/23/18 09:02 07/23/18 09:02 07/23/18 09:02 Oxygen Delivery Method Room Air Weight: 170 lb 10.205 oz Body Mass Index (BMI) 25.2 Finger Stick Blood Glucose 115 Intake and Output for Last 24 Hours 07/21/18 07/22/18 07/23/18 23:59 23:59 23:59 Intake Total 1096 / 1096 896 / 896 Output Total 1800 / 1800 950 / 950 Balance -704 / -704 -54 / -54 General: Alert, Oriented x3, Cooperative, No apparent distress HEENT: Atraumatic, PERRLA, EOMI, Normocephalic Oral: Moist Mucosa Neck: Supple, No JVD, Negative Carotid Bruits Lungs: Clear to auscultation, Normal air movement, No rhonchi, No wheeze, No rales Cardiovascular: Regular rate, Regular Rhythm, Normal S1, Normal S2, No murmurs Abdomen: Bowel Sounds Present, Soft, Non Tender, Non-Distended, No Hepato- splenomegaly Extremities: No clubbing, No cyanosis, No edema, Capillary Refill Less than 3 Seconds Skin: No rashes, No breakdown Musculoskeletal: No Tenderness to Palpation of Joints or Extremities Lymphatic: No Cervical, Supraclavicular, or Inguinal Adenopathy Neurological: Cranial nerves II-XII grossly intact, Neuro grossly intact, Motor Exam 5/5 strength throughout Psych/Mental Status: Normal Affect, Appropriate, Alert and oriented to time, place, person, mood and affect Comment: Miranda catheter draining blood tinged urine Laboratory Results 07/22/18 12:50: WBC 7.0, RBC 4.61, Hgb 13.9, Hct 41.8, MCV 90.7, MCH 30.2, MCHC 33.3, RDW 15.7 H, RDW Differential 51.4 H, Plt Count 175, MPV 12.0, Immature Gran % (Auto) 0.400, Neut % (Auto) 62.2, Lymph % (Auto) 25.0, [place] % (Auto) 9.1, Eos % (Auto) 2.7, Baso % (Auto) 0.6, Absolute Neuts (auto) 4.4, Absolute Lymphs (auto) 1.75, Total Counted Not Reportable 07/22/18 13:55: Urine Creatinine 87.00 07/22/18 13:55: Urine Color Yellow, Urine Clarity Sl. Cloudy, Urine pH 7.0, Ur Specific [place] 1.010, Urine Protein 30 H, Urine Glucose (UA) Normal, Urine Ketones Negative, Urine Occult Blood 250 H, Urine Nitrite Negative, Urine Bilirubin Negative, Urine Urobilinogen Normal, Ur Leukocyte Esterase 25 H, Urine RBC 25-50 SEEN, Urine WBC 0-5 SEEN, Ur Squamous Epith Cells 0 SEEN, Urine Bacteria 0 SEEN, Urine Mucus 0 SEEN 07/22/18 13:55: Ur Random Sodium 64 07/22/18 17:33: POC Glucose 82 07/22/18 22:13: POC Glucose 136 H 07/23/18 06:38: POC Glucose 98 07/23/18 06:40: WBC 9.9, RBC 4.37 L, Hgb 13.2, Hct 39.8 L, MCV 91.1, MCH 30.2, MCHC 33.2, RDW 15.5 H, RDW Differential 50.9 H, Plt Count 166, MPV 11.7, Immature Gran % (Auto) 0.300, Neut % (Auto) 69.0, Lymph % (Auto) 18.9 L, [place] % (Auto) 9.7, Eos % (Auto) 1.8, Baso % (Auto) 0.3, Absolute Neuts (auto) 6.9, Absolute Lymphs (auto) 1.87, Total Counted Not Reportable 07/23/18 06:40: Sodium 142, Potassium 3.6, Chloride 111 H, Carbon Dioxide 27.0, Anion Gap 4 L, BUN 36 H, Creatinine 1.79 H, Estim Creat Clear Calc 33.46, Est GFR (MDRD) Af Amer 47 L, Est GFR (MDRD) Non-Af 39 L, BUN/Creatinine Ratio 20.1 H , Glucose 92, Calcium 8.5 Diagnostic Data Abdomen/Pelvis CT 07/22/18 15:49 IMPRESSION: 1. Bilateral hydroureteronephrosis, greater on the left. No demonstrated stones. Consider outlet obstruction, less likely bilateral small, nonopaque, or passed stones. 2. Prostatic enlargement. Electronically Signed: Daysi Fernando MD at 17:52 EDT Tel , Service support , Chest X-Ray 07/22/18 16:55 IMPRESSION: Findings consistent with COPD. Calcified plaques of the aortic arch. No acute cardiopulmonary disease process is seen. Chest findings are stable in the interval. Electronically Signed: Noam Lozano MD at 21:36 EDT , Service support , Current Medications Albuterol/Ipratropium (Duoneb) 3 ml INHALATION Q4H PRN PRN Reason: sob Albuterol/Ipratropium (Duoneb) 3 ml INHALATION Q6HWA.RT [facility] Last Admin: 07/23/18 06:54 Dose: 3 ml Aspirin (Aspirin, Baby) 81 mg PO DAILY@0800 [facility] Last Admin: 07/23/18 09:07 Dose: 81 mg Budesonide (Pulmicort Aerosol) 0.5 mg INHALATION Q12H.RT [facility] Last Admin: 07/23/18 06:54 Dose: 0.5 mg Dextrose (D50w Syringe) 0 gm IV X1 PRN; Protocol PRN Reason: Hypoglycemia Glucagon () 1 mg IM .X1 PRN PRN Reason: Hypoglycemia Guaifenesin (Mucinex) 1,200 mg PO BID [facility] Last Admin: 07/23/18 09:07 Dose: 1,200 mg Sodium Chloride () 1,000 mls @ 100 mls/hr IV .Q10H [facility] Last Admin: 07/23/18 09:06 Dose: 100 mls/hr Insulin Human Lispro (Humalog Kwikpen (Bkc)) 0 unit SQ ACHS [facility]; Protocol Last Admin: 07/23/18 06:40 Dose: Not Given Latanoprost (Xalatan Opthalmic) 1 drop LEFT EYE QHS [facility] Last Admin: 07/22/18 22:16 Dose: 1 applicatio Multivitamins (Multivitamin) 1 tablet PO DAILY@0800 [facility] Last Admin: 07/23/18 09:07 Dose: 1 tablet Nicotine (Nicoderm Cq (Pbkc)) 21 mg TRANSDERM. DAILY [facility] Last Admin: 07/23/18 09:08 Dose: Not Given Nutritional Formula (Lactose Free) (Glucerna Shake) 120 ml PO TIDCM [facility] Last Admin: 07/23/18 09:07 Dose: 120 ml Ondansetron HCl (Zofran) 4 mg IV Q8H PRN PRN PRN Reason: NAUSEA Pramipexole Dihydrochloride (Mirapex) 0.75 mg PO DAILY@1700 [facility] Pramipexole Dihydrochloride (Mirapex) 1.5 mg PO BID@0600,2200 [facility] Last Admin: 07/23/18 05:19 Dose: 1.5 mg Sodium Chloride () 5 - 15 ml IV UD PRN PRN Reason: SALINE FLUSH Tamsulosin HCl (Flomax) 0.4 mg PO DAILY@1730 [facility] Last Admin: 07/22/18 18:21 Dose: 0.4 mg Zolpidem Tartrate (Ambien (Generic)) 5 mg PO QHS PRN PRN PRN Reason: INSOMNIA Last Admin: 07/22/18 23:23 Dose: 5 mg Medical Necessity - Tobacco Use Smoking Status: Current every day smoker Tobacco Use: Cigarettes Assessment/Plan All Active Problems (Last Reviewed 07/23/18 @ 07:39 by Stone Morris MD) Viral syndrome (Resolved) COPD exacerbation (Resolved) Hypokalemia (Resolved) Lower urinary tract symptoms (Acute) Microscopic hematuria (Acute) Hematuria (Acute) Shortness of breath (Acute) 1. Acute kidney failure due to bladder outlet obstruction from BPH * Patient had been edematous for a while and son states his Lasix dose was increased to help combat it. Labs done on Sunday showed creatinine of 5 and he was told to stop his Lasix and blood pressure medications. Repeat blood work done yesterday showed creatinine of around 4.5 so he was sent to the ED. * Creatinine today is down to 1.79 after obstruction was relieved by passage of catheter which drained about 3 L of fluid in the ED. * CT abdomen showed bilateral hydronephrosis greater on the left with no demonstrated stones and prostatic enlargement. * Urology on board. Recommend that patient goes home with Miranda catheter in place and to follow up on outpatient basis to be set up for transurethral resection of the prostate and prostatic biopsies on outpatient basis. * On Flomax. * continue hydrating with normal saline. * 2. Acute on chronic urinary retention due to BPH * Improving. Miranda catheter in place draining blood-tinged urine. * 3/. COPD: stable. On breathing treatments. 4. Type II diabetes mellitus: Accu-Cheks AC at bedtime. Insulin sliding scale. 5. Stage 1 lung cancer: stable. Follow up with pulmonology on outpatient basis 6. Hypertension: Controlled. Not on any oral medication. 7. Hyperlipidemia: Stable. Not on any medication per EMR. DVT prophylaxis: SCDs Code Visit Inpatient E&M: [id number] [facility] L3
[2018-07-23] MEDS: Insulin Lispro 100 UNIT/ML INSULN.PEN SQ (12:57)
--- NOTE | 2018-07-23 13:32 | PCM.CONS.R ---
Problem List (1) Acute kidney injury superimposed on chronic kidney disease Status: Chronic Consultation - Renal PCP/ Referring MD: Requesting physician: [] Primary care physician: Kevon Harrell MD - History of Present Illness History of Present Illness: The patient is a 78 year old M past medical history of diabetes, COPD, hyperlipidemia, hypertension, stage I lung cancer, BCC of the neck , and BPH . Patient was referred to the hospital by his PCP for persistent elevation of creatinine around 5 . Patient has been complaining of increased frequency of urination and urine dribbling for a month . Last Sunday creatinine was 5 mg a deciliter creatinine was repeated yesterday and it was 4.9 so the PCP asked him to go the emergency room . CAT scan showed bilateral hydroureteronephrosis in the left more than the right. Miranda catheter was placed in the emergency room with large immediate urine return creatinine improved today to 1.79 . Patient has bloody urine in the Miranda bag . Urology service was consulted . As per the patient's son , patient was started on Lasix and metolazone in addition to hydrochlorothiazide last month for leg edema. Baseline creatinine seems around 1.3 mg a deciliter Was admitted last month to the hospital for pneumonia which was treated by antibiotics Review of system: 12 system review is negative today [] - Allergies Allergies: Allergies BEE STINGS Allergy (Severe, Uncoded 06/26/18 19:14) Anaphylaxis - Current Medications Current Medications: Current Medications Albuterol/Ipratropium (Duoneb) 3 ml INHALATION Q4H PRN PRN Reason: sob Albuterol/Ipratropium (Duoneb) 3 ml INHALATION Q6HWA.RT [facility] Last Admin: 07/23/18 12:26 Dose: 3 ml Aspirin (Aspirin, Baby) 81 mg PO DAILY@0800 [facility] Last Admin: 07/23/18 09:07 Dose: 81 mg Budesonide (Pulmicort Aerosol) 0.5 mg INHALATION Q12H.RT [facility] Last Admin: 07/23/18 06:54 Dose: 0.5 mg Dextrose (D50w Syringe) 0 gm IV X1 PRN; Protocol PRN Reason: Hypoglycemia Glucagon () 1 mg IM .X1 PRN PRN Reason: Hypoglycemia Guaifenesin (Mucinex) 1,200 mg PO BID [facility] Last Admin: 07/23/18 09:07 Dose: 1,200 mg Sodium Chloride () 1,000 mls @ 100 mls/hr IV .Q10H [facility] Last Admin: 07/23/18 09:06 Dose: 100 mls/hr Insulin Human Lispro (Humalog Kwikpen (Bkc)) 0 unit SQ ACHS [facility]; Protocol Last Admin: 07/23/18 12:57 Dose: 2 units Latanoprost (Xalatan Opthalmic) 1 drop LEFT EYE QHS [facility] Last Admin: 07/22/18 22:16 Dose: 1 applicatio Multivitamins (Multivitamin) 1 tablet PO DAILY@0800 [facility] Last Admin: 07/23/18 09:07 Dose: 1 tablet Nicotine (Nicoderm Cq (Pbkc)) 21 mg TRANSDERM. DAILY [facility] Last Admin: 07/23/18 09:08 Dose: Not Given Nutritional Formula (Lactose Free) (Glucerna Shake) 120 ml PO TIDCM [facility] Last Admin: 07/23/18 12:54 Dose: 120 ml Ondansetron HCl (Zofran) 4 mg IV Q8H PRN PRN PRN Reason: NAUSEA Pramipexole Dihydrochloride (Mirapex) 0.75 mg PO DAILY@1700 [facility] Pramipexole Dihydrochloride (Mirapex) 1.5 mg PO BID@0600,2200 [facility] Last Admin: 07/23/18 05:19 Dose: 1.5 mg Sodium Chloride () 5 - 15 ml IV UD PRN PRN Reason: SALINE FLUSH Tamsulosin HCl (Flomax) 0.4 mg PO DAILY@1730 [facility] Last Admin: 07/22/18 18:21 Dose: 0.4 mg Zolpidem Tartrate (Ambien (Generic)) 5 mg PO QHS PRN PRN PRN Reason: INSOMNIA Last Admin: 07/22/18 23:23 Dose: 5 mg - Past Medical History Past Medical History (Chronic Problems): Chronic Problems (Last Reviewed 07/23/18 @ 07:39 by Stone Morris MD) Diabetes mellitus, type II (Chronic) Acute kidney injury superimposed on chronic kidney disease (Chronic) Cheek mass (Chronic) 6 mm soft tissue mass left supramedial cheek by lateral nose Personal history of skin cancer (Chronic) Smoker (Chronic) Tobacco use (Chronic) COPD (chronic obstructive pulmonary disease) (Chronic) HLD (hyperlipidemia) (Chronic) HTN (hypertension) (Chronic) Stage 1 lung cancer, RUL mass (Chronic) Smoker (Chronic) History of basal cell carcinoma (Chronic) BCC left upper neck by earlobe (Chronic) - Past Surgical History Surgical History: - - R hydrocele surgery, several basal cell CA skin removal, removal of cyst right knee. - Social History Smoking Status: Current every day smoker - Family History Maternal Family History: Family History (Last Reviewed 07/23/18 @ 07:39 by Stone Morris MD) Father Heart disease Hypertension CVA (cerebral vascular accident) Grandmother Cancer Grandfather CVA (cerebral vascular accident) History Items: COPD Paternal Family History: Family History (Last Reviewed 07/23/18 @ 07:39 by Stone Morris MD) Father Heart disease Hypertension CVA (cerebral vascular accident) Grandmother Cancer Grandfather CVA (cerebral vascular accident) History Items: Heart Disease, Hypertension, Stroke Patient Problems: Active and Suspected Problems (Last Reviewed 07/23/18 @ 07:39 by Stone Morris MD) Lower urinary tract symptoms (Acute) Microscopic hematuria (Acute) Hematuria (Acute) - Physical Exam General: Alert, Oriented x3 HEENT: Atraumatic Oral: Moist Mucosa Neck: Supple, No JVD Lungs: Clear to auscultation, Normal air movement, No rhonchi, No wheeze Cardiovascular: Regular rate, Regular Rhythm, Normal S1, Normal S2 Abdomen: Bowel Sounds Present, Soft, Non Tender, Non-Distended Extremities: No clubbing, No cyanosis, - - Trace 1 edema of lower extremity Skin: No rashes Musculoskeletal: No Tenderness to Palpation of Joints or Extremities Lymphatic: No Cervical, Supraclavicular, or Inguinal Adenopathy Neurological: Cranial nerves II-XII grossly intact, Neuro grossly intact Psych/Mental Status: Appropriate Vital Signs Temp Pulse Resp BP Pulse Ox 98.6 F 101 H 18 127/86 H 97 07/23/18 09:02 07/23/18 09:02 07/23/18 09:02 07/23/18 09:02 07/23/18 09:02 Oxygen Delivery Method Room Air Weight: 77.4 kg Body Mass Index (BMI) 25.2 Finger Stick Blood Glucose 115 Intake and Output for Last 24 Hours 07/21/18 07/22/18 07/23/18 23:59 23:59 23:59 Intake Total 1096 / 1096 4 / 2064 Output Total 1800 / 1800 1600 / 1600 Balance -704 / -704 464 / 464 Laboratory Tests Past 24 Hrs 07/22/18 07/22/18 07/22/18 12:50 13:55 13:55 WBC 7.0 RBC 4.61 Hgb 13.9 Hct 41.8 MCV 90.7 MCH 30.2 MCHC 33.3 RDW 15.7 H RDW Differential 51.4 H Plt Count 175 MPV 12.0 Immature Gran % (Auto) 0.400 Neut % (Auto) 62.2 Lymph % (Auto) 25.0 [place] % (Auto) 9.1 Eos % (Auto) 2.7 Baso % (Auto) 0.6 Absolute Neuts (auto) 4.4 Absolute Lymphs (auto) 1.75 Total Counted Not Reportable Sodium Potassium Chloride Carbon Dioxide Anion Gap BUN Creatinine Estim Creat Clear Calc Est GFR (MDRD) Af Amer Est GFR (MDRD) Non-Af BUN/Creatinine Ratio Glucose Calcium Urine Color Yellow Urine Clarity Sl. Cloudy Urine pH 7.0 Ur Specific [place] 1.010 Urine Protein 30 H Urine Glucose (UA) Normal Urine Ketones Negative Urine Occult Blood 250 H Urine Nitrite Negative Urine Bilirubin Negative Urine Urobilinogen Normal Ur Leukocyte Esterase 25 H Urine RBC 25-50 SEEN Urine WBC 0-5 SEEN Ur Squamous Epith Cells 0 SEEN Urine Bacteria 0 SEEN Urine Mucus 0 SEEN Ur Random Sodium Urine Creatinine 87.00 07/22/18 07/23/18 07/23/18 13:55 06:40 06:40 WBC 9.9 RBC 4.37 L Hgb 13.2 Hct 39.8 L MCV 91.1 MCH 30.2 MCHC 33.2 RDW 15.5 H RDW Differential 50.9 H Plt Count 166 MPV 11.7 Immature Gran % (Auto) 0.300 Neut % (Auto) 69.0 Lymph % (Auto) 18.9 L [place] % (Auto) 9.7 Eos % (Auto) 1.8 Baso % (Auto) 0.3 Absolute Neuts (auto) 6.9 Absolute Lymphs (auto) 1.87 Total Counted Not Reportable Sodium 142 Potassium 3.6 Chloride 111 H Carbon Dioxide 27.0 Anion Gap 4 L BUN 36 H Creatinine 1.79 H Estim Creat Clear Calc 33.46 Est GFR (MDRD) Af Amer 47 L Est GFR (MDRD) Non-Af 39 L BUN/Creatinine Ratio 20.1 H Glucose 92 Calcium 8.5 Urine Color Urine Clarity Urine pH Ur Specific [place] Urine Protein Urine Glucose (UA) Urine Ketones Urine Occult Blood Urine Nitrite Urine Bilirubin Urine Urobilinogen Ur Leukocyte Esterase Urine RBC Urine WBC Ur Squamous Epith Cells Urine Bacteria Urine Mucus Ur Random Sodium 64 Urine Creatinine POC Glucose 07/23/18 07/22/18 07/22/18 06:38 22:13 17:33 POC Glucose 98 136 H 82 Assessment/Plan All Active Problems (Last Reviewed 07/23/18 @ 07:39 by Stone Morris MD) Viral syndrome (Resolved) COPD exacerbation (Resolved) Hypokalemia (Resolved) Lower urinary tract symptoms (Acute) Microscopic hematuria (Acute) Hematuria (Acute) Shortness of breath (Acute) 1-acute kidney injury and chronic kidney disease. Baseline creatinine 1.3. Acute kidney injury is most probably related to postrenal obstruction at the level of the bladder outlet from BPH. Creatinine peaked at 5 and improved to 1.8 mg a deciliter today with Miranda catheter placement. UA showed 30 protein, blood 250, RBCs 25-50. No need for further acute kidney injury workup for now. No need for renal replacement therapy. I agree with IV fluid. Keep mean arterial pressure more than 65. Avoid diuretics and VALENTINO/ARB. Check renal panel tomorrow. 2-bilateral hydroureteronephrosis from GALLOWAY due to enlarged prostate. Urology service is following. Continue urine draining Via Miranda catheter. 3-hematuria: Most probably traumatic from Miranda catheter placement. Will defer management to the urology service. 4-hypertension: Blood pressure is well controlled. Please avoid VALENTINO/ ARB for now. Thank you for the consult. Renal team will continue to follow. Please call with any question or concern at my cell phone #[phone] Shae Avalos MD
--- NOTE | 2018-07-23 13:37 | CON.PCM_ITS ---
Problem List (1) Acute kidney injury superimposed on chronic kidney disease Status: Chronic Consultation - Renal PCP/ Referring MD: Requesting physician: [] Primary care physician: Kevon Harrell MD - History of Present Illness History of Present Illness: The patient is a 78 year old M past medical history of diabetes, COPD, hyperlipidemia, hypertension, stage I lung cancer, BCC of the neck , and BPH . Patient was referred to the hospital by his PCP for persistent elevation of creatinine around 5 . Patient has been complaining of increased frequency of urination and urine dribbling for a month . Last Sunday creatinine was 5 mg a deciliter creatinine was repeated yesterday and it was 4.9 so the PCP asked him to go the emergency room . CAT scan showed bilateral hydroureteronephrosis in the left more than the right. Miranda catheter was placed in the emergency room with large immediate urine return creatinine improved today to 1.79 . Patient has bloody urine in the Miranda bag . Urology service was consulted . As per the patient's son , patient was started on Lasix and metolazone in addition to hydrochlorothiazide last month for leg edema. Baseline creatinine seems around 1.3 mg a deciliter Was admitted last month to the hospital for pneumonia which was treated by antibiotics Review of system: 12 system review is negative today [] - Allergies Allergies: Allergies BEE STINGS Allergy (Severe, Uncoded 06/26/18 19:14) Anaphylaxis - Current Medications Current Medications: Current Medications Albuterol/Ipratropium (Duoneb) 3 ml INHALATION Q4H PRN PRN Reason: sob Albuterol/Ipratropium (Duoneb) 3 ml INHALATION Q6HWA.RT [facility] Last Admin: 07/23/18 12:26 Dose: 3 ml Aspirin (Aspirin, Baby) 81 mg PO DAILY@0800 [facility] Last Admin: 07/23/18 09:07 Dose: 81 mg Budesonide (Pulmicort Aerosol) 0.5 mg INHALATION Q12H.RT [facility] Last Admin: 07/23/18 06:54 Dose: 0.5 mg Dextrose (D50w Syringe) 0 gm IV X1 PRN; Protocol PRN Reason: Hypoglycemia Glucagon () 1 mg IM .X1 PRN PRN Reason: Hypoglycemia Guaifenesin (Mucinex) 1,200 mg PO BID [facility] Last Admin: 07/23/18 09:07 Dose: 1,200 mg Sodium Chloride () 1,000 mls @ 100 mls/hr IV .Q10H [facility] Last Admin: 07/23/18 09:06 Dose: 100 mls/hr Insulin Human Lispro (Humalog Kwikpen (Bkc)) 0 unit SQ ACHS [facility]; Protocol Last Admin: 07/23/18 12:57 Dose: 2 units Latanoprost (Xalatan Opthalmic) 1 drop LEFT EYE QHS [facility] Last Admin: 07/22/18 22:16 Dose: 1 applicatio Multivitamins (Multivitamin) 1 tablet PO DAILY@0800 [facility] Last Admin: 07/23/18 09:07 Dose: 1 tablet Nicotine (Nicoderm Cq (Pbkc)) 21 mg TRANSDERM. DAILY [facility] Last Admin: 07/23/18 09:08 Dose: Not Given Nutritional Formula (Lactose Free) (Glucerna Shake) 120 ml PO TIDCM [facility] Last Admin: 07/23/18 12:54 Dose: 120 ml Ondansetron HCl (Zofran) 4 mg IV Q8H PRN PRN PRN Reason: NAUSEA Pramipexole Dihydrochloride (Mirapex) 0.75 mg PO DAILY@1700 [facility] Pramipexole Dihydrochloride (Mirapex) 1.5 mg PO BID@0600,2200 [facility] Last Admin: 07/23/18 05:19 Dose: 1.5 mg Sodium Chloride () 5 - 15 ml IV UD PRN PRN Reason: SALINE FLUSH Tamsulosin HCl (Flomax) 0.4 mg PO DAILY@1730 [facility] Last Admin: 07/22/18 18:21 Dose: 0.4 mg Zolpidem Tartrate (Ambien (Generic)) 5 mg PO QHS PRN PRN PRN Reason: INSOMNIA Last Admin: 07/22/18 23:23 Dose: 5 mg - Past Medical History Past Medical History (Chronic Problems): Chronic Problems (Last Reviewed 07/23/18 @ 07:39 by Stone Morris MD) Diabetes mellitus, type II (Chronic) Acute kidney injury superimposed on chronic kidney disease (Chronic) Cheek mass (Chronic) 6 mm soft tissue mass left supramedial cheek by lateral nose Personal history of skin cancer (Chronic) Smoker (Chronic) Tobacco use (Chronic) COPD (chronic obstructive pulmonary disease) (Chronic) HLD (hyperlipidemia) (Chronic) HTN (hypertension) (Chronic) Stage 1 lung cancer, RUL mass (Chronic) Smoker (Chronic) History of basal cell carcinoma (Chronic) BCC left upper neck by earlobe (Chronic) - Past Surgical History Surgical History: - - R hydrocele surgery, several basal cell CA skin removal, removal of cyst right knee. - Social History Smoking Status: Current every day smoker - Family History Maternal Family History: Family History (Last Reviewed 07/23/18 @ 07:39 by Stone Morris MD) Father Heart disease Hypertension CVA (cerebral vascular accident) Grandmother Cancer Grandfather CVA (cerebral vascular accident) History Items: COPD Paternal Family History: Family History (Last Reviewed 07/23/18 @ 07:39 by Stone Morris MD) Father Heart disease Hypertension CVA (cerebral vascular accident) Grandmother Cancer Grandfather CVA (cerebral vascular accident) History Items: Heart Disease, Hypertension, Stroke Patient Problems: Active and Suspected Problems (Last Reviewed 07/23/18 @ 07:39 by Stone Morris MD) Lower urinary tract symptoms (Acute) Microscopic hematuria (Acute) Hematuria (Acute) - Physical Exam General: Alert, Oriented x3 HEENT: Atraumatic Oral: Moist Mucosa Neck: Supple, No JVD Lungs: Clear to auscultation, Normal air movement, No rhonchi, No wheeze Cardiovascular: Regular rate, Regular Rhythm, Normal S1, Normal S2 Abdomen: Bowel Sounds Present, Soft, Non Tender, Non-Distended Extremities: No clubbing, No cyanosis, - - Trace 1 edema of lower extremity Skin: No rashes Musculoskeletal: No Tenderness to Palpation of Joints or Extremities Lymphatic: No Cervical, Supraclavicular, or Inguinal Adenopathy Neurological: Cranial nerves II-XII grossly intact, Neuro grossly intact Psych/Mental Status: Appropriate Vital Signs Temp Pulse Resp BP Pulse Ox 98.6 F 101 H 18 127/86 H 97 07/23/18 09:02 07/23/18 09:02 07/23/18 09:02 07/23/18 09:02 07/23/18 09:02 Oxygen Delivery Method Room Air Weight: 77.4 kg Body Mass Index (BMI) 25.2 Finger Stick Blood Glucose 115 Intake and Output for Last 24 Hours 07/21/18 07/22/18 07/23/18 23:59 23:59 23:59 Intake Total 1096 / 1096 4 / 2064 Output Total 1800 / 1800 1600 / 1600 Balance -704 / -704 464 / 464 Laboratory Tests Past 24 Hrs 07/22/18 07/22/18 07/22/18 12:50 13:55 13:55 WBC 7.0 RBC 4.61 Hgb 13.9 Hct 41.8 MCV 90.7 MCH 30.2 MCHC 33.3 RDW 15.7 H RDW Differential 51.4 H Plt Count 175 MPV 12.0 Immature Gran % (Auto) 0.400 Neut % (Auto) 62.2 Lymph % (Auto) 25.0 [place] % (Auto) 9.1 Eos % (Auto) 2.7 Baso % (Auto) 0.6 Absolute Neuts (auto) 4.4 Absolute Lymphs (auto) 1.75 Total Counted Not Reportable Sodium Potassium Chloride Carbon Dioxide Anion Gap BUN Creatinine Estim Creat Clear Calc Est GFR (MDRD) Af Amer Est GFR (MDRD) Non-Af BUN/Creatinine Ratio Glucose Calcium Urine Color Yellow Urine Clarity Sl. Cloudy Urine pH 7.0 Ur Specific [place] 1.010 Urine Protein 30 H Urine Glucose (UA) Normal Urine Ketones Negative Urine Occult Blood 250 H Urine Nitrite Negative Urine Bilirubin Negative Urine Urobilinogen Normal Ur Leukocyte Esterase 25 H Urine RBC 25-50 SEEN Urine WBC 0-5 SEEN Ur Squamous Epith Cells 0 SEEN Urine Bacteria 0 SEEN Urine Mucus 0 SEEN Ur Random Sodium Urine Creatinine 87.00 07/22/18 07/23/18 07/23/18 13:55 06:40 06:40 WBC 9.9 RBC 4.37 L Hgb 13.2 Hct 39.8 L MCV 91.1 MCH 30.2 MCHC 33.2 RDW 15.5 H RDW Differential 50.9 H Plt Count 166 MPV 11.7 Immature Gran % (Auto) 0.300 Neut % (Auto) 69.0 Lymph % (Auto) 18.9 L [place] % (Auto) 9.7 Eos % (Auto) 1.8 Baso % (Auto) 0.3 Absolute Neuts (auto) 6.9 Absolute Lymphs (auto) 1.87 Total Counted Not Reportable Sodium 142 Potassium 3.6 Chloride 111 H Carbon Dioxide 27.0 Anion Gap 4 L BUN 36 H Creatinine 1.79 H Estim Creat Clear Calc 33.46 Est GFR (MDRD) Af Amer 47 L Est GFR (MDRD) Non-Af 39 L BUN/Creatinine Ratio 20.1 H Glucose 92 Calcium 8.5 Urine Color Urine Clarity Urine pH Ur Specific [place] Urine Protein Urine Glucose (UA) Urine Ketones Urine Occult Blood Urine Nitrite Urine Bilirubin Urine Urobilinogen Ur Leukocyte Esterase Urine RBC Urine WBC Ur Squamous Epith Cells Urine Bacteria Urine Mucus Ur Random Sodium 64 Urine Creatinine POC Glucose 07/23/18 07/22/18 07/22/18 06:38 22:13 17:33 POC Glucose 98 136 H 82 Assessment/Plan All Active Problems (Last Reviewed 07/23/18 @ 07:39 by Stone Morris MD) Viral syndrome (Resolved) COPD exacerbation (Resolved) Hypokalemia (Resolved) Lower urinary tract symptoms (Acute) Microscopic hematuria (Acute) Hematuria (Acute) Shortness of breath (Acute) 1-acute kidney injury and chronic kidney disease. Baseline creatinine 1.3. Acute kidney injury is most probably related to postrenal obstruction at the level of the bladder outlet from BPH. Creatinine peaked at 5 and improved to 1.8 mg a deciliter today with Miranda catheter placement. UA showed 30 protein, blood 250, RBCs 25-50. No need for further acute kidney injury workup for now. No need for renal replacement therapy. I agree with IV fluid. Keep mean arterial pressure more than 65. Avoid diuretics and VALENTINO/ARB. Check renal panel tomorrow. 2-bilateral hydroureteronephrosis from [place]AY due to enlarged prostate. Urology service is following. Continue urine draining Via Miranda catheter. 3-hematuria: Most probably traumatic from Miranda catheter placement. Will defer management to the urology service. 4-hypertension: Blood pressure is well controlled. Please avoid VALENTINO/ ARB for now. Thank you for the consult. Renal team will continue to follow. Please call with any question or concern at my cell phone #[phone] Shae Avalos MD
[2018-07-23 16:46] LABS: Bedside Glucose 75 mg/dL (70-110)
[2018-07-23] MEDS: Pramipexole Di-HCl 0.25 MG Tablet 0.75 MG PO (17:09)
[2018-07-23] MEDS: Tamsulosin HCl 0.4 MG Capsule PO (17:09)
[2018-07-23] MEDS: Latanoprost 0.005% 1 Bottle 1 DRP LEFT EYE (21:39)
[2018-07-23 21:50] LABS: Bedside Glucose 104 mg/dL (70-110)
[2018-07-24 00:16] LABS: Bedside Glucose 178 mg/dL (70-110)
[2018-07-24] MEDS: 0.9% Normal Saline 1,000 ML 100 ML IV (03:39)
[2018-07-24 03:45] VITALS: BP 143/75; PULSE 92; RESP 16; TEMP 37; O2SAT 94
[2018-07-24] MEDS: Pramipexole Di-HCl 0.5 MG Tablet 1.5 MG PO (05:26)
[2018-07-24 06:20] LABS: Absolute Lymphocyte Count 2.02 X10^3/ul (0.83-4.51); Absolute Neutrophil Count 4.4 X10^3/uL (2.0-7.7); Basophil# 0.04 X10^3/uL; Basophil% 0.5 % (0-1); Eosinophil# 0.32 X10^3/uL; Eosinophils% 4.2 % (0-5); Hematocrit 36.8 % (40-54); Lymphocyte # 2.02 X10^3/ul (4.0); Lymphocyte % 26.5 % (19-41); Mean Corp Hgb Conc 32.6 g/gl (32-36); Mean Corpuscular Hgb 29.6 pg (27.0-32.0); Mean Corpuscular Volume 90.6 fL (80-94); Mean Platelet Vol. 11.2 fl (6.2-12.0); Monocyte# 0.79 X10^3/uL; Monocyte% 10.4 % (0-10); Neutrophil # 4.42 X10^3/uL (2.7-7.7); Neutrophil % 58.1 % (47-70); Platelet Count 157 K/mm3 (150-450); RBC Distribution Width SD 48.9 fl (35.1-43.9); Red Blood Count 4.06 M/mm3 (4.6-6.2); White Blood Count 7.6 K/mm3 (4.4-11.0)
[2018-07-24 06:21] LABS: POSITIVE COUNT NO; POSITIVE DIFFERENTIAL NO; POSITIVE MORPHOLOGY NO
[2018-07-24 06:30] LABS: Albumin, Serum 2.3 g/dL (3.2-5.0); BUN 20 mg/dL (7-18); BUN/Creat Ratio 19.6 RATIO (10-20); Calcium,Total 8.3 mg/dL (8.5-10.1); Chloride 108 mmol/L (98-107); Creatinine, Serum 1.02 mg/dL (0.70-1.30); EST Glomerular Filtration Rate 75 mL/min (>60); Est Glom Filt Rate - Afr Amer 91 mL/min (>60); Estimated Creatinine Clearance 58.72 ml/min; Glucose 95 mg/dL (74-106); Phosphorus 2.3 mg/dL (2.5-4.9); Potassium 3.6 mmol/L (3.5-5.1); Sodium Level 141 mmol/L (136-145)
[2018-07-24 06:36] LABS: Bedside Glucose 92 mg/dL (70-110)
[2018-07-24] MEDS: Budesonide Respules 0.5 MG/2 ML AMPUL.NEB. INHALATION (06:54)
[2018-07-24] MEDS: Ipratropium/Albuterol Sulfate 3 ML AMPUL.NEB INHALATION (06:54)
[2018-07-24 06:55] VITALS: PULSE 77; RESP 18; O2SAT 94
[2018-07-24 07:24] VITALS: BP 152/75; PULSE 94; RESP 18; TEMP 37.1; O2SAT 93
[2018-07-24] MEDS: Glucerna Shake 120 ML LIQUID PO (08:58)
[2018-07-24] MEDS: Aspirin 81 MG TAB.CHEW PO (08:59)
[2018-07-24] MEDS: Multivitamins,Therapeutic Tablet 1 TABLET PO (08:59)
[2018-07-24] MEDS: guaiFENesin 1,200 MG Tablet 1200 MG PO (08:59)
--- NOTE | 2018-07-24 10:48 | DS.PCM_ITS ---
Discharge Date and Diagnosis Date of Admission: 07/22/18 Date of Discharge: 07/24/18 - Primary Discharge Diagnosis Active and Suspected Problems (Last Reviewed 07/23/18 @ 07:39 by Stone Morris MD) Lower urinary tract symptoms (Acute) Microscopic hematuria (Acute) Hematuria (Acute) CARO due to bladder outlet obstruction from BPH urinary retention due to GALLOWAY BPH - Secondary Discharge Diagnosis Chronic Problems (Last Reviewed 07/23/18 @ 07:39 by Stone Morris MD) Diabetes mellitus, type II (Chronic) Acute kidney injury superimposed on chronic kidney disease (Chronic) Cheek mass (Chronic) 6 mm soft tissue mass left supramedial cheek by lateral nose Personal history of skin cancer (Chronic) Smoker (Chronic) Tobacco use (Chronic) COPD (chronic obstructive pulmonary disease) (Chronic) HLD (hyperlipidemia) (Chronic) HTN (hypertension) (Chronic) Stage 1 lung cancer, RUL mass (Chronic) Smoker (Chronic) History of basal cell carcinoma (Chronic) BCC left upper neck by earlobe (Chronic) Hospital Course and Treatment Imaging Results: Diagnostic Data Abdomen/Pelvis CT 07/22/18 15:49 IMPRESSION: 1. Bilateral hydroureteronephrosis, greater on the left. No demonstrated stones. Consider outlet obstruction, less likely bilateral small, nonopaque, or passed stones. 2. Prostatic enlargement. Electronically Signed: Daysi Fernando MD at 17:52 EDT Tel , Service support , Chest X-Ray 07/22/18 16:55 IMPRESSION: Findings consistent with COPD. Calcified plaques of the aortic arch. No acute cardiopulmonary disease process is seen. Chest findings are stable in the interval. Electronically Signed: Noam Lozano MD at 21:36 EDT , Service support , urology nephrology Operations: None Procedures: None Summary of Care Provided: The patient is a 78 year old M with past medical history as listed which included BPH for which he had been lost to follow-up for about 3-4 years. He was admitted through the ED on 07/22/2018 with a complaint of increasing frequency, urgency and urinary incontinence as well as feeling of incomplete emptying of the bladder to about a few weeks prior to admission. He also complained of difficulty with urination. He had been following up with Dr. Lima but had not lost to follow-up. He denied any burning with urination and did have a history of kidney stones but had not passed one recently. He had also had lower extremity edema and said his Lasix was increased by his primary care doctor take care of lower extremity edema. His PCP had done blood work which showed creatinine of 5 a few days prior to admission. His diuretics were therefore stopped. Repeat labs on the day of admission showed creatinine of 4.59 and so he was told to come into the ED. On admission in the ED, Miranda catheter was inserted with drainage of 4 L of urine with associated hematuria. Was admitted and managed for AK I and bladder outlet obstruction due to BPH. CT of the abdomen done showed enlargement of the prostate. Urology was consulted and recommended that patient go home with a catheter in place and to follow-up with urology on outpatient basis for TURP. Nephrology was also consulted on account of AK I. Post renal AK I resolved with creatinine trending down to 1.02 on day of discharge. Hematuria also improved significantly as urine was clear by day of discharge. Patient was discharged home on 07/24/2018 to follow-up with his primary care doctor, urologist and [employer] specialist. He was discharged home with the Miranda catheter in place, and was educated about caring for the catheter at home. Patient seen and examined prior to discharge. He had no complaints and felt well. Review of systems otherwise negative. Labs and vitals reviewed Home medication reviewed on consult. o/e; Vital Signs Height 5 ft 9 in Weight: 170 lb 10.205 oz Weight in Pounds 170.6 lbs Pulse Ox 96 Temperature 98.6 F Pulse Rate 96 Respiratory Rate 18 Blood Pressure 145/82 Blood Pressure Position Sitting [] General: Alert, Oriented x3, Cooperative, No apparent distress HEENT: Atraumatic, PERRLA, EOMI, Normocephalic Oral: Moist Mucosa Neck: Supple, No JVD, Negative Carotid Bruits Lungs: Clear to auscultation, Normal air movement, No rhonchi, No wheeze, No rales Cardiovascular: Regular rate, Regular Rhythm, Normal S1, Normal S2, No murmurs Abdomen: Bowel Sounds Present, Soft, Non Tender, Non-Distended, No Hepato- splenomegaly Extremities: No clubbing, No cyanosis, No edema, Capillary Refill Less than 3 Seconds Skin: No rashes, No breakdown Musculoskeletal: No Tenderness to Palpation of Joints or Extremities Lymphatic: No Cervical, Supraclavicular, or Inguinal Adenopathy Neurological: Cranial nerves II-XII grossly intact, Neuro grossly intact, Motor Exam 5/5 strength throughout Psych/Mental Status: Normal Affect, Appropriate, Alert and oriented to time, place, person, mood and affect Comment: Miranda catheter draining clear urine. Plan as above. - Physical Exam Vital Signs Temp Pulse Resp BP Pulse Ox 98.7 F 94 18 152/75 H 93 07/24/18 07:24 07/24/18 07:24 07/24/18 07:24 07/24/18 07:24 07/24/18 07:24 Oxygen Delivery Method Room Air Weight: 170 lb 10.205 oz Body Mass Index (BMI) 25.2 Finger Stick Blood Glucose 115 Intake and Output for Last 24 Hours 07/22/18 07/23/18 07/24/18 23:59 23:59 23:59 Intake Total 1096 / 1096 4372 / 4372 1043 / 1043 Output Total 1800 / 1800 3200 / 3200 950 / 950 Balance -704 / -704 1172 / 1172 93 / 93 Laboratory Tests Past 24 Hrs 07/24/18 07/24/18 05:42 05:42 WBC 7.6 RBC 4.06 L Hgb 12.0 L Hct 36.8 L MCV 90.6 MCH 29.6 MCHC 32.6 RDW 15.0 H RDW Differential 48.9 H Plt Count 157 MPV 11.2 Immature Gran % (Auto) 0.300 Neut % (Auto) 58.1 Lymph % (Auto) 26.5 [place] % (Auto) 10.4 H Eos % (Auto) 4.2 Baso % (Auto) 0.5 Absolute Neuts (auto) 4.4 Absolute Lymphs (auto) 2.02 Total Counted Not Reportable Sodium 141 Potassium 3.6 Chloride 108 H Carbon Dioxide 24.0 BUN 20 H Creatinine 1.02 Estim Creat Clear Calc 58.72 Est GFR (MDRD) Af Amer 91 Est GFR (MDRD) Non-Af 75 BUN/Creatinine Ratio 19.6 Glucose 95 Calcium 8.3 L Phosphorus 2.3 L Albumin 2.3 L POC Glucose 07/24/18 07/23/18 07/23/18 06:27 21:38 16:39 POC Glucose 92 104 75 07/23/18 11:34 POC Glucose 178 H Discharge Diet: Low fat/ Low Cholesterol Discharge Activity: Return to Normal Activity Weight Bearing Status: Weight bearing as tolerated Call your doctor if you observe: Inability to urinate, Swelling in the ankles Catheter: Miranda to leg bag Home Medications: Medications to take at Discharge Multivitamins,Therapeutic [Multivitamin] 1 tab PO DAILY 12/22/13 Latanoprost 0.005% [Xalatan Opthalmic] 1 drp LEFT EYE QHS 01/07/15 Aspirin [Aspirin, Baby] 81 mg PO DAILY@0800 06/30/16 Fluticasone/Umeclidin/Vilanter [Trelegy Ellipta 100-62.5-25] 1 each IH DAILY 07/22/18 Ropinirole HCl 1.5 mg PO DAILY 07/22/18 Ropinirole HCl 3 mg PO BID 07/22/18 Tamsulosin HCl [Flomax] 0.4 mg PO DAILY@1730 #30 capsule 07/24/18 Following Prescrptions Were Given to Patient: Tamsulosin HCl [Flomax] 0.4 mg PO DAILY@1730 #30 capsule Primary Care Physician: Kevon Harrell MD [Primary Care Provider] - Please follow up with your Primary Care Physician in: one week Please Follow Up With: Stone Morris MD When: 1-2 weeks Please Follow Up With: Shae Avalos MD When: 1-2 weeks Patient Instructions: Discharge Instructions for Acute Kidney Injury, Benign Prostatic Hyperplasia, ED Retention Urinary Male Disposition: Home Minutes spent on discharge:: 40 Patient Condition:: Stable Medical Necessity - Tobacco Use Smoking Status: Current every day smoker Tobacco Use: Cigarettes Meaningful Use Info Meaningful Use Diagnoses (Choose all that apply): None applicable Code Visit Inpatient E&M: 50572 Disch Hosp
--- NOTE | 2018-07-24 10:48 | DCINST_ITS ---
- Discharge Diagnoses Current Active Problems: Current Active and Chronic Problems (Last Reviewed 07/23/18 @ 07:39 by Stone Morris MD) Lower urinary tract symptoms (Acute) Microscopic hematuria (Acute) Hematuria (Acute) Acute kidney injury superimposed on chronic kidney disease (Chronic) You will use the following diet at home:: Cardiac Your food should be the consistency of: Regular Your liquids should be the consistency of: Regular/Thin Discharge Activity: Return to Normal Activity Weight Bearing Status: Weight bearing as tolerated Call your doctor if you observe: Inability to urinate, Swelling in the ankles Instructions: Benign Prostatic Hyperplasia, ED Retention Urinary Male, Discharge Instructions for Acute Kidney Injury Additional Instructions: please keep Miranda catheter in place until follow up with Dr Morris Allergies/Adverse Reactions: Allergies BEE STINGS Allergy (Severe, Uncoded 06/26/18 19:14) Anaphylaxis Medications to take at Discharge Multivitamins,Therapeutic [Multivitamin] 1 tab PO DAILY 12/22/13 Latanoprost 0.005% [Xalatan Opthalmic] 1 drp LEFT EYE QHS 01/07/15 Aspirin [Aspirin, Baby] 81 mg PO DAILY@0800 06/30/16 Fluticasone/Umeclidin/Vilanter [Trelegy Ellipta 100-62.5-25] 1 each IH DAILY 07/22/18 Ropinirole HCl 1.5 mg PO DAILY 07/22/18 Ropinirole HCl 3 mg PO BID 07/22/18 Tamsulosin HCl [Flomax] 0.4 mg PO DAILY@1730 #30 capsule 07/24/18 The following prescriptions were given: Tamsulosin HCl [Flomax] 0.4 mg PO DAILY@1730 #30 capsule Primary Care Physician: Kevon Harrell MD [Primary Care Provider] - Please follow up with your Primary Care Physician in: one week Test Results: Test results from this visit will be discussed in further detail at your follow- up appointment, if applicable. Please Follow Up With: Stone Morris MD When: 1-2 weeks Please Follow Up With: Shae Avalos MD When: 1-2 weeks Proposed Discharge Date: 07/24/18
[2018-07-24 11:20] LABS: Bedside Glucose 136 mg/dL (70-110)
[2018-07-24 12:06] VITALS: BP 145/82; PULSE 96; RESP 18; TEMP 37; O2SAT 96
[2018-07-24 13:05] VITALS: BP 145/82; PULSE 96; RESP 18; TEMP 37; O2SAT 96
--- NOTE | 2018-07-24 14:10 | NURSING ---
STUDENT NURSES CHARTING REVIEWED FOR EDUCATIONAL LEARNING PURPOSES. BY JUMA LOZOYA
--- NOTE | 2018-07-25 16:12 | CASEMGMT ---
DEVORA LOVE Discharge Follow-up Phone Call: GALILEO: Mehrdad Strata: 3 Call Date: 07/25/18 Discharge Date: 07/24/18 Time of Call: 1610 Duration: 3 min Admitting Diagnosis: Post obstructive nephropathy DEVORA LOVE completed follow-up phone call after recent hospitalization. Patient states he is doing well. Patient had no questions regarding discharge instructions. Patient states his prescription was not in stock but will be in tomorrow. Patient states [facility] is to be calling him and will be out tomorrow. Patient states he has his follow-up appts scheduled. Patient denied further questions at this time.
== END 2018-07-24 13:10 | disposition home health service (06) | DRG 683 ==
LOC: ED 13:41 → MS3 15:35
PROVIDERS: Admitting Provider Internal Medicine; Emergency Provider Emergency Medicine; Family Provider Family Medicine; PCP Family Medicine; Referring Provider Internal Medicine; Visit Provider Student in an Organized Health Care Education/Training Program
DX: N17.9 Acute kidney failure, unspecified (principal); N13.8 Other obstructive and reflux uropathy; C34.11 Malignant neoplasm of upper lobe, right bronchus or lung; N40.1 Benign prostatic hyperplasia with lower urinary tract symptoms; J44.9 Chronic obstructive pulmonary disease, unspecified; E11.9 Type 2 diabetes mellitus without complications; F17.210 Nicotine dependence, cigarettes, uncomplicated; E78.5 Hyperlipidemia, unspecified; R33.8 Other retention of urine; Z87.442 Personal history of urinary calculi; N13.30 Unspecified hydronephrosis; I10 Essential (primary) hypertension
CPT/HCPCS: 36415; 51702; 71046; 74176; 80048; 80053; 80069; 81001; 82570; 82962; 83735; 83880; 84300; 85025; 94640; 97162; 97165; 97530; 97802; 99284; J7030; A4216

== ENCOUNTER → 2018-08-02 10:05 | Outpatient (CLI) | payer MEDICARE, BC, SELFPAY ==
[2018-07-22 15:57] VITALS: BMI 25.2
[2018-08-02 13:16] LABS: AST(SGOT) 23 U/L (15-37); Alanine Aminotransfer ALT/SGPT 27 U/L (16-61); Albumin, Serum 3.2 g/dL (3.2-5.0); Alkaline Phosphatase 108 U/L (45-117); Anion Gap 9 (5-15); BUN 14 mg/dL (7-18); BUN/Creat Ratio 14.5 RATIO (10-20); Calcium,Total 9.2 mg/dL (8.5-10.1); Chloride 107 mmol/L (98-107); Creatinine, Serum 0.96 mg/dL (0.70-1.30); EST Glomerular Filtration Rate 80 mL/min (>60); Est Glom Filt Rate - Afr Amer 97 mL/min (>60); Globulin 3.3 g/dL (2.2-4.2); Glucose 88 mg/dL (74-106); Potassium 3.8 mmol/L (3.5-5.1); Protein, Total 6.5 g/dL (6.4-8.2); Sodium Level 143 mmol/L (136-145)
== END ==
PROVIDERS: Family Provider Family Medicine; PCP Family Medicine; Referring Provider Family Medicine; Visit Provider Family Medicine
DX: J44.9 Chronic obstructive pulmonary disease, unspecified (principal)
CPT/HCPCS: 36415; 80053

== ENCOUNTER 2018-08-14 08:43 | Day surgery (SDC) | payer MEDICARE, BC, SELFPAY ==
[2018-07-22 15:57] VITALS: BMI 25.2
[2018-08-07 15:08] VITALS: BP 134/76; PULSE 89; RESP 18; TEMP 36.8; O2SAT 97; BMI 24.9
[2018-08-07 16:20] LABS: Hemoglobin A1c 6.2 % (4.2-6.3)
--- NOTE | 2018-08-13 15:08 | HP.PCM_ITS ---
History and Physical Date of Admission: 08/14/18 Patient returns, 78-year-old male who ended up in the hospital with retention of urine had a CAT scan done the demonstrated a large decompress bladder he had hydronephrosis of the right kidney from refluxing. Has a large prostate on CAT scan exam probably has a 70 to 80 g prostate he is taking tamsulosin. Currently has a catheter in place. ALLERGIES: Bee stings MEDICATIONS: Aspirin 81 mg tablet,chewable Latanoprost Low Dose Aspirin Multivitamin Olmesartan Medoxomil Ropinirole Hcl Tamsulosin Hcl 0.4 mg capsule Trelegy Ellipta Notes: Has had the pneumonia vaccine PSH: Cystoscopy - 2014 Excision of Hydrocele NON- PSH: Patient documented to have received pneumococcal vaccination Skin Biopsy, multi sebaceous cysts PMH: Benign essential microscopic hematuria - 2015 Calculus of kidney - 2015, - 2014 Elevated prostate specific antigen [PSA] - 2015, - 2014, - 2014, - 2014, - 2013 Other microscopic hematuria - 2014, - 2014, - 2014 Nodular prostate without lower urinary tract symptoms - 2014 Hydrocele, unspecified Personal history of urinary calculi NON- PMH: Bronchitis, not specified as acute or chronic Emphysema, unspecified Essential (primary) hypertension Headache Migraine, unsp, not intractable, without status migrainosus Mild intermittent asthma, uncomplicated Neoplasm of unsp behavior of bone, soft tissue, and skin Other amnesia Personal history of diseases of the ms sys and conn tiss Type 2 diabetes mellitus without complications Unspecified hearing loss, unspecified ear Unspecified visual loss Immunizations: None FAMILY HISTORY: Heart Disease - Runs in Family SOCIAL HISTORY: Marital Status: Preferred Language: Pashto; Ethnicity: Not Or ; Race: White Current Smoking Status: Patient smokes. Has smoked since 05/14/1954. Smokes 1 pack per day. Smoking cessation counseling was provided. Does not use smokeless tobacco. Does not drink anymore. Does not use drugs. Drinks 3 caffeinated drinks per day. Has not had a blood transfusion. Notes: Moved and returned from [place] and has local living arrangements. smoked all his life, often 2 ppd, now at 1 Former tobacco chewer. REVIEW OF SYSTEMS: Constitutional: Patient denies fever, chills, weight loss, and weight gain. Eyes: Patient reports glaucoma. Patient denies blurry vision and cataracts. Ears, Nose, Mouth, Throat: Patient reports hearing loss. Patient denies sinus infections and sleep apnea. Cardiovascular: Patient reports swollen ankles. Patient denies chest pains, irregular heartbeat, and pacemaker/defib. Respiratory: Patient reports shortness of breath and wheezing. Patient denies oxygen and cpap machine. Gastrointestinal: Patient reports constipation. Patient denies abdominal pain, diarrhea, nausea, and vomiting. Genitourinary: Patient reports bedwetting, get up at night to void, leakage of urine, weak stream/scanty, history of stones, blood in the urine, urinary retention, frequent urination, and difficulty starting stream. Patient denies frequent uti's and painful urination. Musculoskeletal: Patient reports back pain. Patient denies sore muscles and gout. Integumentary/Skin: Patient reports skin cancer. Patient denies rash and chronic itching. Neurological: Patient reports stroke/tia. Patient denies falling/unsteady and paralysis. Hematologic/Lymphatic: Patient denies abnormal bleeding, blood transfusion, swollen lymph nodes, deep venous thrombosis, and pulmonary embolism. VITAL SIGNS: 07/30/2018 02:18 PM Weight 183 lb / 83.01 kg Height 69 in / 175.26 cm BP 132/68 mmHg BMI 27.0 kg/m? - BMI Counseling was provided. PHYSICAL EXAMINATION: Anus and Perineum: No hemorrhoids. No anal stenosis. No rectal fissure, no anal fissure. No edema, no dimple, no perineal tenderness, no anal tenderness. Scrotum: No lesions. No edema. No cysts. No warts. Epididymides: Right: no spermatocele, no masses, no cysts, no tenderness, no induration, no enlargement. Left: no spermatocele, no masses, no cysts, no tenderness, no induration, no enlargement. Testes: No tenderness, no swelling, no enlargement left testes. No tenderness, no swelling, no enlargement right testes. Normal location left testes. Normal location right testes. No mass, no cyst, no varicocele, no hydrocele left testes. No mass, no cyst, no varicocele, no hydrocele right testes. Urethral Meatus: Normal size. No lesion, no wart, no discharge, no polyp. Normal location. Penis: Penile irvin catheter present. Circumcised, no foreskin warts, no cracks. No dorsal peyronie's plaques, no left corporal peyronie's plaques, no right corporal peyronie's plaques, no scarring, no shaft warts. No balanitis, no meatal stenosis. Prostate: Prostate about 80 grams. Left lobe normal consistency, right lobe normal consistency. Symmetrical lobes. No prostate nodule. Left lobe no tenderness, right lobe no tenderness. Seminal Vesicles: Nonpalpable. Sphincter Tone: Normal sphincter. No rectal tenderness. No rectal mass. MULTI-SYSTEM PHYSICAL EXAMINATION: Constitutional: Well-nourished. No physical deformities. Normally developed. Good grooming. Neck: Neck symmetrical, not swollen. Normal tracheal position. Respiratory: No labored breathing, no use of accessory muscles. Normal breath s ounds. Cardiovascular: Regular rate and rhythm. No murmur, no gallop. Normal temperature, normal extremity pulses, no swelling, no varicosities. Lymphatic: No enlargement of neck, axillae, groin. Skin: No paleness, no jaundice, no cyanosis. No lesion, no ulcer, no rash. Neurologic / Psychiatric: Oriented to time, oriented to place, oriented to person. No depression, no anxiety, no agitation. Gastrointestinal: No mass, no tenderness, no rigidity, non obese abdomen. Eyes: Normal conjunctivae. Normal eyelids. Ears, Nose, Mouth, and Throat: Left ear no scars, no lesions, no masses. Right ear no scars, no lesions, no masses. Nose no scars, no lesions, no masses. Normal hearing. Normal lips. Musculoskeletal: Normal gait and station of head and neck. PAST DATA REVIEWED: Source Of History: Patient 07/22/15 02/09/15 07/16/14 05/09/13 PSA Total PSA 6.08 mg/dl 9.87 ng/ml 7.96 7.53 Notes Test performed at: [facility] [address] [place] [address] [id number] This test was performed using the TPSA assay method for the [employer] chemistry system. Values obtained with different assay methods cannot be used interchangably. When changing PSA assays in the course of monitoring a patient, additional sequential testing should be carried out to confirm baseline values. PROCEDURES: None ASSESSMENT: ICD-10 Details 1 : Benign prostatic hyperplasia with lower urinary tract symptoms - N40.1 2 Other retention of urine - R33.8 3 Personal history of urinary calculi - Z87.442 4 NON-: Essential (primary) hypertension - I10 5 Personal history of diseases of the ms sys and conn tiss - Z87.39 6 Type 2 diabetes mellitus without complications - E11.9 PLAN: Schedule Procedure: Unspecified Date - Cystoscopy TURP - 30487 Document Letter(s): Created for Patient: Clinical Summary The risks, benefits, and some of the possible complications of the proposed procedure were discussed with the patient at length and in detail including the possibility of postoperative urinary urgency, frequency, incontinence, dysuria, hematuria, retrograde ejaculation, urinary retention, bladder neck contracture, and urethral stricture, as well as the need for a bladder biopsy, retrograde pyelograms, resection of a bladder lesion, dilation of the urethra, postoperative catheterization, placement of a ureteral stent, discovering asymptomatic prostate cancer and others. The possible need for postoperative treatments including further surgical procedures was discussed with the patient. The general risks of the operative procedure and the perioperative period were discussed with the patient at length and in detail including swelling, pain, nausea, fever, infection, wound infection, sepsis, renal failure, internal or external bleeding, postoperative formation of scar tissue, the need for blood transfusions, deep venous thrombosis or blood clots, pulmonary embolus, pulmonary complications and cardiac complications. All of the patient's questions were answered and he voiced an understanding of these risks, benefits and possible complications. The patient gave fully informed consent to proceed with the procedure. Notes: 78-year-old male with a very large prostate developed retention of urine hydronephrosis, examine the prostate today is 70-80 g very large prostate plan to proceed with a transurethral resection of prostate at the hospital, explain to the most likely to go home a catheter for a few days after the surgery of the catheter removed in the office. Will set him up for TURP in the hold his baby aspirin seven days for the surgery.
[2018-08-14] VITALS (12 sets, daily range): BP systolic 75–127; BP diastolic 50–76; PULSE 67–95; RESP 16–18; TEMP 36.1–37.4; O2SAT 95–100; BMI 24.9
[2018-08-14 09:30] LABS: Bedside Glucose 98 mg/dL (70-110)
--- NOTE | 2018-08-14 10:50 | PROS_PTH ---
PATIENT: TIANA ALEX LOC: [facility] [place] U#:[id number] AGE/SX: 78/M ROOM: RE08/14/[address]: Dr. Stone Morris MD : 1940 BED: DIS: 08/15/2018 SPEC #: [id number] RECD: 08/14/18 13:10 STATUS: SUNSHINE BETTY #: [id number] JUAN CARLOS: 08/14/18 10:[address]: Stone Morris DEPT: SURGICAL PATHOLOGY RECD BY: Franklyn Hull ENTERED: 08/14/18 13:57 SP TYPE: TURP OTHR DR: Dr. Kevon Harrell MD Tissues: Prostate, NOS Procedures: Surgery Specimen Level IV HEADER OPERATION: Cysto, TUR, prostate, Olympus PRE-OP DIAGNOSIS: BPH and obstruction TISSUE SUBMITTED: Prostate tissue MICROSCOPIC DIAGNOSIS Prostate tissue, TUR: Benign prostatic hyperplasia, glandular and stromal type. Focal chronic inflammation. SJ:julio cesar 08/15/18 MICROSCOPIC DESCRIPTION Slides are reviewed. GROSS DESCRIPTION Received is one container labeled with the patient's name and designated prostate tissue. The specimen consists of multiple irregular fragments of pink-lewis, rubbery, soft tissue that in aggregate weigh 29.9 gm and measure in aggregate 7 x 7 x 2 cm. Information Technology Director tissue is submitted in 12 cassettes. / SJ:julio cesar 08/14/18 TC:5 CPT: 24553
[2018-08-14] MEDS: Cefazolin 2 GM in 0.9% Normal Saline 100 ML IV (10:57)
--- NOTE | 2018-08-14 11:07 | DCINST_ITS ---
Discharge Diet: Light diet - advance as tolerated Discharge Activity: May Shower Call your doctor if your incision/area has: Continuous Slow Oozing, Sudden Increased Bleeding, Increased Pain/ Swelling, Increased Redness, Foul Smelling Discharge, Swelling at the incision site Call your doctor if you observe: Fever of 101 or Higher Instructions: Transurethral Resection of the Prostate (TURP): Home Recovery Allergies/Adverse Reactions: Allergies BEE STINGS Allergy (Severe, Uncoded 08/14/18 09:12) Anaphylaxis Medications to take at Discharge Multivitamins,Therapeutic [Multivitamin] 1 tab PO DAILY 12/22/13 Latanoprost 0.005% [Xalatan Opthalmic] 1 drp EACH EYE QHS 01/07/15 Aspirin [Aspirin, Baby] 81 mg PO DAILY@0800 06/30/16 Fluticasone/Umeclidin/Vilanter [Trelegy Ellipta 100-62.5-25] 1 each IH DAILY 07/22/18 Ropinirole HCl 1.5 mg PO 1700 07/22/18 Ropinirole HCl 3 mg PO BID 07/22/18 Tamsulosin HCl [Flomax] 0.4 mg PO DAILY@1730 #30 capsule 07/24/18 Olmesartan Medoxomil 5 mg PO DAILY 08/07/18 Ciprofloxacin [Cipro] 500 mg PO BID #14 tablet 08/14/18 Ibuprofen 600 mg PO Q6H PRN PRN #20 tablet 08/14/18 The following prescriptions were given: Ibuprofen 600 mg PO Q6H PRN PRN #20 tablet PRN Reason: Pain Ciprofloxacin [Cipro] 500 mg PO BID #14 tablet Primary Care Physician: Kevon Harrell MD [Primary Care Provider] - Test Results: Test results from this visit will be discussed in further detail at your follow- up appointment, if applicable. Please Follow Up With: Stone Morris MD When: in 2 weeks, please call to make an appointment.
--- NOTE | 2018-08-14 12:23 | OP.PCM_ITS ---
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 Post-Operative Diagnosis: The same Surgery/Procedure Performed:: Transurethral resection of the prostate Description of Surgical Findings:: 78-year-old male who is developed retention of urine required a catheter is failed voiding trials so we talked about the options of management and he wishes to proceed with a transurethral resection of the prostate to unblock his prostate and hopefully restore normal voiding we talked about the risk of the surgery including scar tissue formation along the urethra scar tissue near the sphincter scar tissue in the bladder neck of the prostate, bleeding from the prostate, infection, failure to your failure to urinate normally afterwards, incontinence. Failure of the procedure. After reviewing everything with the patient he wishes to proceed with a transurethral resection of the prostate hopefully restore normal voiding and not need a catheter anymore. 78-year-old male taken back to the operating room after smooth induction of general anesthesia he was placed supine on the table in dorsolithotomy position the catheter was removed the penis and testicles are prepped and draped in usual sterile fashion I prepared the scope I used a 26 Serbian Olympus continuous flow resectoscope use the obturator lens to look inside the urethra the entire length the urethra is normal the sphincter was normal prostate bilateral hypertrophy no no extremely large median lobe high riding bladder neck, I then proceeded with the resection resected the right lobe of the prostate and then resected the left lobe of the prostate and then cauterized extensively to get hemostasis Ellik out all the prostate tissue on inspection he had a nice wide open flow from the verumontanum into the bladder n sara the sphincter looked intact at the end of the case obtain hemostasis placed a 22 Serbian catheter into the bladder continues bladder irrigation and the patient was taken back to PACU good condition both the left and right ureteral orifices were identified pre-and post resection and both were uninjured the bladder all the chips were removed of the bladder. Type of Anesthesia:: General Drains: 22fr - Admit VTE Documentation VTE Present on Admission: No VTE Mechan Device Prophylaxis: SCD's
[2018-08-14 12:46] LABS: Bedside Glucose 113 mg/dL (70-110)
[2018-08-14] MEDS: 0.9% Normal Saline 1,000 ML 75 ML IV (15:46)
[2018-08-14] MEDS: Pramipexole Di-HCl 0.25 MG Tablet 0.75 MG PO (16:59)
[2018-08-14] MEDS: Tamsulosin HCl 0.4 MG Capsule PO (18:36)
[2018-08-14] MEDS: Ciprofloxacin 400 MG/200 ML BAG 200 MG IV (18:59)
[2018-08-14] MEDS: Pramipexole Di-HCl 0.5 MG Tablet 1.5 MG PO (21:44)
[2018-08-14] MEDS: Docusate Sodium 100 MG Capsule PO (21:44)
[2018-08-14] MEDS: Latanoprost 0.005% 1 Bottle 1 DRP EACH EYE (21:52)
[2018-08-15] VITALS (7 sets, daily range): BP systolic 101–105; BP diastolic 54–64; PULSE 68–95; RESP 14–18; TEMP 36.6–37.2; O2SAT 96–98
[2018-08-15] MEDS: 0.9% Normal Saline 1,000 ML 75 ML IV (04:55)
[2018-08-15 05:58] LABS: Hematocrit 34.8 % (40-54); Hemoglobin 11.6 g/dl (13.0-16.5); Mean Corp Hgb Conc 33.3 g/gl (32-36); Mean Corpuscular Volume 89.9 fL (80-94); Mean Platelet Vol. 11.2 fl (6.2-12.0); Platelet Count 173 K/mm3 (150-450); RBC Distribution Width CV 16.6 % (11.6-14.6); RBC Distribution Width SD 53.1 fl (35.1-43.9); Red Blood Count 3.87 M/mm3 (4.6-6.2); White Blood Count 9.7 K/mm3 (4.4-11.0)
[2018-08-15 06:09] LABS: Scan Indicated on CBC? Y/N NO
[2018-08-15 06:15] LABS: Anion Gap 4 (5-15); BUN 13 mg/dL (7-18); Calcium,Total 8.3 mg/dL (8.5-10.1); Chloride 111 mmol/L (98-107); Creatinine, Serum 1.08 mg/dL (0.70-1.30); EST Glomerular Filtration Rate 70 mL/min (>60); Est Glom Filt Rate - Afr Amer 85 mL/min (>60); Estimated Creatinine Clearance 55.46 ml/min; Glucose 93 mg/dL (74-106); Potassium 3.8 mmol/L (3.5-5.1); Sodium Level 142 mmol/L (136-145)
[2018-08-15] MEDS: Ipratropium/Albuterol Sulfate 3 ML AMPUL.NEB INHALATION ×2 (06:46→13:16)
[2018-08-15] MEDS: Ciprofloxacin 400 MG/200 ML BAG 200 MG IV (07:12)
[2018-08-15] MEDS: Pramipexole Di-HCl 0.5 MG Tablet 1.5 MG PO (08:40)
[2018-08-15] MEDS: Multivitamins,Therapeutic Tablet 1 TABLET PO (08:41)
[2018-08-15] MEDS: Docusate Sodium 100 MG Capsule PO (08:41)
[2018-08-15] MEDS: Losartan Potassium 25 MG Tablet 12.5 MG PO (08:41)
[2018-08-15] MEDS: Pantoprazole Sodium 40 MG Tablet PO (11:22)
[2018-08-15] MEDS: Tamsulosin HCl 0.4 MG Capsule PO (16:16)
[2018-08-15] MEDS: oxyCODONE 5 MG Tablet PO (16:16)
[2018-08-15] MEDS: Pramipexole Di-HCl 0.25 MG Tablet 0.75 MG PO (17:13)
== END 2018-08-15 18:57 | disposition home or self-care (01) ==
LOC: SDC 08:44 → AC 08:45 → MS3 08-15 08:37
PROVIDERS: Family Provider Family Medicine; PCP Family Medicine; Referring Provider Urology; Visit Provider Urology
PROC: (CPT 52630; principal; 2018-08-14 10:40)
DX: N40.1 Benign prostatic hyperplasia with lower urinary tract symptoms (principal); R33.8 Other retention of urine; N41.9 Inflammatory disease of prostate, unspecified; E11.9 Type 2 diabetes mellitus without complications; F17.200 Nicotine dependence, unspecified, uncomplicated; E78.00 Pure hypercholesterolemia, unspecified; I11.0 Hypertensive heart disease with heart failure; I50.9 Heart failure, unspecified; J44.9 Chronic obstructive pulmonary disease, unspecified; Z85.850 Personal history of malignant neoplasm of thyroid; Z85.118 Personal history of other malignant neoplasm of bronchus and lung; Z87.442 Personal history of urinary calculi; Z79.51 Long term (current) use of inhaled steroids; Z79.899 Other long term (current) drug therapy
CPT/HCPCS: 52630; 36415; 80048; 82962; 83036; 85027; 88305; 94640; J7030; J7120; J0744; J2405

== ENCOUNTER → 2018-08-30 | Outpatient (CLI) | payer MEDICARE, BC, SELFPAY ==
[2018-08-14 14:00] VITALS: BMI 24.9
== END | disposition home or self-care (01) ==
LOC: LAB.FUTURE 14:35
PROVIDERS: Family Provider Family Medicine; PCP Family Medicine; Referring Provider Urology; Visit Provider Urology
DX: R30.0 Dysuria (principal)
CPT/HCPCS: 87086; 87088

== ENCOUNTER → 2018-11-12 | Outpatient (CLI) | payer MEDICARE, BC, SELFPAY ==
[2018-08-14 14:00] VITALS: BMI 24.9
--- NOTE | 2018-11-12 12:00 | RAD_ITS ---
STUDY: X-RAY CHEST REASON FOR EXAM: Male, 78 years old. Chest pain/pressure TECHNIQUE: PA and lateral views of the chest. COMPARISON: 07/22/2018 FINDINGS: Lungs are hyperexpanded with chronic interstitial changes, no superimposed acute pulmonary process. There is no demonstrated pleural abnormality. Normal size heart. Normal mediastinum and hailey. Normal visualized pulmonary arteries. Normal visualized aortic arch and descending thoracic aorta. Normal visualized thoracic spine. Normal visualized ribs, clavicles, and shoulders. There is no demonstrated abnormality of the visualized soft tissue structures of the upper abdomen. RAD/Chest PA and Lateral IMPRESSION: Hyperexpanded lungs with chronic interstitial changes, no superimposed acute pulmonary process Electronically Signed: Marcelo Kilpatrick MD at 12:41 EDT , Service support ,
== END | disposition home or self-care (01) ==
LOC: MTRAD 11:58
PROVIDERS: Family Provider Family Medicine; PCP Family Medicine; Referring Provider Family Medicine; Visit Provider Family Medicine
DX: J44.1 Chronic obstructive pulmonary disease with (acute) exacerbation (principal)
CPT/HCPCS: 71046

== ENCOUNTER 2019-01-07 15:32 | Observation (INO) | payer MEDICARE, BC, SELFPAY ==
[2018-08-14 14:00] VITALS: BMI 24.9
[2019-01-07] VITALS (8 sets, daily range): BP systolic 137–190; BP diastolic 79–104; PULSE 63–88; RESP 16–18; TEMP 36.2–36.6; O2SAT 95–99; BMI 27.8; BMI 26.5
--- NOTE | 2019-01-07 15:49 | EKG12_ITS ---
Test Reason : DIZZINESS Blood Pressure : / mmHG Vent. Rate : 070 BPM Atrial Rate : 070 BPM P-R Int : 184 ms QRS Dur : 084 ms QT Int : 378 ms P-R-T Axes : 054 056 065 degrees QTc Int : 408 ms Normal sinus rhythm Normal ECG Confirmed by RADU TREJO ([id number]), sound editor JULIANA KOWALSKI ([id number]) on 01/14/2019 10:14:00 AM Referred By: Robin Walsh Confirmed By:ARDU TREJO
--- NOTE | 2019-01-07 15:50 | ED.DCSUM_ITS ---
History of Present Illness Chief Complaint: Dizziness Informant: Patient Onset: Today Current Severity: Mild Maximum Severity: Moderate Narrative: Patient presents with dizziness for the past 2-1/2 hours. He states he went to the dentist this morning but was sitting upright the entire time. After returning home he felt dizzy in which she describes being off balance and the room spinning. When he sits at rest symptoms improved. He got to fix himself some lunch and about 10 minutes after getting upright had return of dizzy sensation. He states he felt like he might pass out and did feel his heart was racing. Past Medical History - Allergies and Home Meds Allergies/Adverse Reactions: Allergies BEE STINGS Allergy (Severe, Uncoded 08/14/18 09:12) Anaphylaxis Primary Care Physician: Kevon Harrell MD [Primary Care Provider] - Prior records reviewed: Yes Past Medical History: - - Reviewed Surgical History: - - R hydrocele surgery, several basal cell CA skin removal, removal of cyst right knee. Smoking Status: Current every day smoker - Family History Maternal Family History: Family History (Last Reviewed 07/23/18 @ 07:39 by Stone Morris MD) Father Heart disease Hypertension CVA (cerebral vascular accident) Grandmother Cancer Grandfather CVA (cerebral vascular accident) Family History: Reports: COPD Paternal Family History: Family History (Last Reviewed 07/23/18 @ 07:39 by Stone Morris MD) Father Heart disease Hypertension CVA (cerebral vascular accident) Grandmother Cancer Grandfather CVA (cerebral vascular accident) Family History: Reports: Heart Disease, Hypertension, Stroke Review of Systems General: Denies: Chills, Fever Eyes: Reports: - - 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 Denies: Visual changes - bilaterally ENT: Denies: Bilateral ear pain Cardiovascular: Reports: Palpitations. Denies: Chest pain Respiratory: Denies: Dyspnea Genitourinary: Denies: Dysuria Musculoskeletal: Denies: Myalgias, Arthralgias, Neck pain Skin: Denies: Rash Neurological: Denies: Headache, Weakness, Parasthesia, Numbness Psych: Denies: Depression, Anxiety Physical Exam Vital Signs/Narrative: Vital Signs Temp Pulse Resp BP Pulse Ox 01/07/19 15:33 97.9 F 88 16 184/104 H 97 01/07/19 15:32 97.9 F 81 16 184/104 H 96 Inital Vital Signs reviewed: Yes General: Well nourished, Well developed Head: Normocephalic Eyes: EOMI ENT: Moist mucous membranes Neck: Supple Cardiovascular: Regular rate, Regular rhythm Respiratory: No distress, CTA bilaterally Abdomen: Soft, Nontender Extremities: Nontender, - - 3+ edema bilaterally, symmetric. Skin: Normal color, No rash Neurological: Alert, Normal Strength, - - NIH equals 0 Psychological: Normal affect Diagnostic/Tx/Re-eval 01/07/19 16:00 Chest 1 View (Portable) [RAD] Stat Chronic changes with right upper lobe nodule. Patient has known lung cancer. 01/07/19 16:17 CTA Head AND Neck W/ Contrast [CT] Stat No CTA evidence of intracranial aneurysm or vascular malformation. Dense calcified atherosclerotic plaque in both common carotid artery bulbs but no CT evidence of significant stenosis. Small right vertebral artery. Laboratory Results 01/07/19 01/07/19 01/07/19 15:35 15:35 16:10 WBC 8.9 RBC 5.81 Hgb 16.7 H Hct 49.9 MCV 85.9 MCH 28.7 MCHC 33.5 RDW Std Deviation 52.0 H RDW Coeff of Gayle 17.5 H Plt Count 212 MPV 11.1 Immature Gran % (Auto) 0.300 Neut % (Auto) 53.7 Lymph % (Auto) 35.1 Ogle % (Auto) 7.5 Eos % (Auto) 2.5 Baso % (Auto) 0.9 Absolute Neuts (auto) 4.8 Absolute Lymphs (auto) 3.13 Nucleated RBC % 0 Sodium 143 Potassium 3.6 Chloride 111 H Carbon Dioxide 29.0 Anion Gap 3 L BUN 19 H Creatinine 1.24 Estim Creat Clear Calc 48.31 Est GFR (MDRD) Af Amer 72 Est GFR (MDRD) Non-Af 60 BUN/Creatinine Ratio 15.3 Glucose 147 H Calcium 9.7 Urine Color Straw Urine Clarity Sl. Cloudy Urine pH 7.0 Ur Specific Cassatt 1.010 Urine Protein 100 H Urine Glucose (UA) Normal Urine Ketones Negative Urine Occult Blood 25 H Urine Nitrite Negative Urine Bilirubin Negative Urine Urobilinogen Normal Ur Leukocyte Esterase 100 H Urine RBC 0-5 SEEN Urine WBC 10-25 SEEN Ur Squamous Epith Cells 0-5 SEEN Urine Bacteria 0 SEEN Hyaline Casts 0-5 SEEN Urine Mucus 0 SEEN - Medical Decision Making Repeat blood pressure is currently 164/84. Patient is currently asymptomatic. There are some portions of his history concerning for peripheral vertigo, however there are also portions of the story concerning for central etiology. Patient now tells me he had similar symptoms a week and a half ago. He did have palpitations during the episode with near syncope. I recommended observation overnight for cardiac monitoring as well as probable MRI. Patient is in agreement with this. I will speak with the hospitalist. ED Disposition - Plan for ED Patient: Disposition: Acute Care Hospital [facility] Diagnosis: Vertigo, Hypertension, Palpitations Referrals: Kevon Harrell MD [Primary Care Provider] -
--- NOTE | 2019-01-07 16:00 | RAD_ITS ---
STUDY: X-RAY CHEST REASON FOR EXAM: Male, 78 years old. Chest pain, dizziness, CHF, COPD, history of lung cancer right upper lobe TECHNIQUE: Portable chest AP COMPARISON: None. FINDINGS: 12 mm nodular density in the right lung apex, pulmonary nodule suspected. Pulmonary hyperlucency and hyperinflation consistent with COPD/emphysema. Normal cardiomediastinal silhouette. No acute osseous process. RAD/Chest 1 View (Portable) IMPRESSION: Evidence of COPD/emphysema. Right upper lobe pulmonary nodule. No other acute superimposed cardiopulmonary process. Electronically Signed: Jorge Luis Isbell MD at 17:09 EDT Tel , Service support ,
[2019-01-07 16:01] LABS: Absolute Lymphocyte Count 3.13 X10^3/uL (0.83-4.51); Absolute Neutrophil Count 4.8 X10^3/uL (2.0-7.7); Basophil# 0.08 X10^3/uL; Basophil% 0.9 % (0-1); Eosinophil# 0.22 X10^3/uL; Eosinophils% 2.5 % (0-5); Hematocrit 49.9 % (40-54); Hemoglobin 16.7 g/dL (13.0-16.5); Lymphocyte # 3.13 X10^3/ul (4.0); Lymphocyte % 35.1 % (19-41); Mean Corp Hgb Conc 33.5 g/dL (32-36); Mean Corpuscular Hgb 28.7 pg (27.0-32.0); Mean Corpuscular Volume 85.9 fL (80-94); Mean Platelet Vol. 11.1 fl (6.2-12.0); Monocyte# 0.67 X10^3/uL; Monocyte% 7.5 % (0-10); NRBC Flagged by Analyzer 0 % (0-5); Neutrophil # 4.79 X10^3/uL (2.7-7.7); Neutrophil % 53.7 % (47-70); Platelet Count 212 K/mm3 (150-450); RBC Distribution Width CV 17.5 % (11.6-14.6); Red Blood Count 5.81 M/mm3 (4.6-6.2); White Blood Count 8.9 K/mm3 (4.4-11.0)
[2019-01-07 16:14] LABS: Anion Gap 3 (5-15); BUN 19 mg/dL (7-18); BUN/Creat Ratio 15.3 RATIO (10-20); Calcium,Total 9.7 mg/dL (8.5-10.1); Chloride 111 mmol/L (98-107); Creatinine, Serum 1.24 mg/dL (0.70-1.30); EST Glomerular Filtration Rate 60 mL/min (>60); Est Glom Filt Rate - Afr Amer 72 mL/min (>60); Estimated Creatinine Clearance 48.31 ml/min; Glucose 147 mg/dL (74-106); Potassium 3.6 mmol/L (3.5-5.1); Sodium Level 143 mmol/L (136-145)
[2019-01-07 16:16] LABS: Bacteria 0 SEEN /hpf (None Seen); Mucous, Urine 0 SEEN /hpf (<or=2+)
--- NOTE | 2019-01-07 16:17 | CT_ITS ---
STUDY: CTA HEAD AND NECK WITH CONTRAST REASON FOR EXAM: Male, 78 years old. RADIATION DOSAGE (If Supplied By Facility): CTDIvol = ( 30.83 ) mGy, DLP = ( 1516.75 ) mGycm TECHNIQUE: CT angiography was performed with a multi-detector CT scanner. Data acquisition was obtained from the skull base through the vertex following intravenous administration of 75 IV Isovue 370. MIP images were reconstructed from the axial data set. Post-processing of the angiographic images was performed, with multiplanar reformation and 3D reconstruction. Individualized dose optimization techniques were used for this CT. COMPARISON: No relevant priors. FINDINGS: Normal bilateral petrous carotid arteries. Normal right cavernous carotid artery with a normal supraclinoid bifurcation. Normal left cavernous carotid artery with a normal supraclinoid bifurcation. Normal right A1 segments of the anterior cerebral artery. Normal left A1 segments of the anterior cerebral artery. Normal intact anterior communicating artery (ACOM). Normal bilateral A2 segments of the anterior cerebral arteries. Normal right M1 and M2 segments of the middle cerebral arteries, with a normal M1 bifurcation. Normal left M1 and M2 segments of the middle cerebral arteries, with a normal M1 bifurcation. Normal right posterior communicating artery (PCOM). Normal left posterior communicating artery (PCOM). Normal bilateral vertebral arteries. Normal basilar artery with a normal basilar bifurcation. The visualized bilateral superior cerebellar (SCA) arteries are normal. Normal bilateral P1, P2 and visualized P3 segments of the posterior cerebral arteries. There is no demonstrated aneurysm of the [place] of Rai. There is no demonstrated abnormality of the visualized brain. AORTIC ARCH: There is atherosclerotic calcific plaque formation of the aortic arch and great vessels arising from the aortic arch, without a hemodynamically significant stenosis. There is a normal origin of the brachiocephalic, left common carotid, and left subclavian arteries. Normal origins of the brachiocephalic, left common carotid, and left subclavian arteries. RIGHT CAROTID ARTERIES: Normal right common carotid artery (CCA). There is moderate atherosclerotic plaque formation without significant narrowing of the right carotid bulb. Normal origin of the right internal carotid (ICA) artery without a hemodynamically significant stenosis. Normal visualized cervical portion of the right internal carotid artery. Normal origin of the right external carotid artery (ECA). LEFT CAROTID ARTERIES: Normal left common carotid artery (CCA). There is moderate atherosclerotic plaque formation without significant narrowing of the carotid bulb. Normal origin of the left internal carotid (ICA) artery without a hemodynamically significant stenosis. Normal visualized cervical portion of the left internal carotid artery. Normal origin of the left external carotid artery (ECA). VERTEBRAL ARTERIES: There is enhancement within the bilateral vertebral arteries with a small right vertebral artery, and a dominant left vertebral artery. Soft tissue windows show no suspicious enhancing lesion, no airway narrowing or deviation. Extensive degenerative changes noted in the cervical spine. CT/CTA Head AND Neck W/ Contrast IMPRESSION: No CTA evidence of intracranial aneurysm or vascular malformation Dense calcified atherosclerotic plaque in both common carotid artery bulbs but no CTA evidence of significant stenosis Small right vertebral artery Electronically Signed: Marcelo Kilpatrick MD at 16:48 EDT , Service support ,
[2019-01-07 16:18] LABS: Color, Urine Straw (Yellow); Glucose, Dipstick Normal (Normal); Ketone-Dipstick Negative (Negative); Leukocyte Esterase-Dipstick 100 /ul (Negative); Nitrite-Dipstick Negative (Negative); Occult Blood-Urine 25 /ul (Negative); Protein-Dipstick 100 mg/dl (Negative); Urine Bilirubin Dipstick Negative (Negative); Urine Clarity Sl. Cloudy (Clear); Urine Urobilinogen Normal (Normal)
[2019-01-07 16:44] LABS: Hyaline Cast 0-5 SEEN /lpf (0-5)
[2019-01-07 16:45] LABS: Red Blood Cells-Urine 0-5 SEEN /hpf (0-5); Squamous Epithelial Cells - UA 0-5 SEEN /hpf (0-5)
[2019-01-07 16:47] LABS: White Blood Cells 10-25 SEEN /hpf (0-5)
--- NOTE | 2019-01-07 18:04 | HP.PCM_ITS ---
Problem List (1) Diabetes mellitus, type II Status: Chronic Qualifiers: Diabetes mellitus halfway insulin use: without halfway use Diabetes mellitus complication status: with unspecified complications (2) Vertigo Status: Acute (3) Palpitations Status: Acute (4) COPD (chronic obstructive pulmonary disease) Status: Chronic Qualifiers: COPD type: unspecified COPD Qualified Code(s): J44.9 - Chronic obstructive pulmonary disease, unspecified (5) HLD (hyperlipidemia) Status: Chronic Qualifiers: Hyperlipidemia type: pure hypercholesterolemia Qualified Code(s): E78.00 - Pure hypercholesterolemia, unspecified; E78.0 - Pure hypercholesterolemia (6) HTN (hypertension) Status: Chronic Qualifiers: Hypertension type: essential hypertension Qualified Code(s): I10 - Essential (primary) hypertension (7) History of basal cell carcinoma Status: Chronic History of Present Illness Date of Admission: 01/07/19 Chief Complaint: Dizziness. The patient is a 78 year old M with past medical history as mentioned above presented to the emergency room because of dizziness. His symptoms started around 1 PM today after he went back home, was standing, started feeling dizzy and lightheaded, described as spinning sensation, intermittent, was about to pass out on couple of times, associated with being off balance as well as palpitation and lasted for several minutes and without aggravating or relieving factors. He tried to sit down for several minutes but he again became dizzy and lightheaded after getting upright. He mentioned that he had a similar episode around 1 week ago that lasted for about 2 minutes and resolved spontaneously. He denied blurred vision, slurred speech, facial numbness or tingling. He denied focal arm or leg weakness. He denied ear pain, discharge or change in his hearing. 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 His son mentioned that he had a strong family history of stroke as well. He denied chest pain shortness of breath. Initially in the emergency department, his blood pressure was elevated but improved, other vital signs were stable. His routine blood work was unremarkable. EKG revealed normal sinus rhythm without evidence of acute ischemic changes or cardiac arrhythmias. Chest x-ray revealed bilateral basilar scarring, hyperinflation, no acute findings. Head and neck CTA revealed no evidence of acute infarct, hemorrhage, hemodynamically significant vascular disease or stenosis, revealed small right vertebral area. He is being admitted for vertigo for treatment and there is a concern that patient may have acute stroke and being admitted for evaluation as well. Past Medical History Past Medical History (Chronic Problems): Chronic Problems (Last Reviewed 07/23/18 @ 07:39 by Stone Morris MD) Diabetes mellitus, type II (Chronic) Personal history of skin cancer (Chronic) Tobacco use (Chronic) COPD (chronic obstructive pulmonary disease) (Chronic) HLD (hyperlipidemia) (Chronic) HTN (hypertension) (Chronic) Stage 1 lung cancer, RUL mass (Chronic) History of basal cell carcinoma (Chronic) BCC left upper neck by earlobe (Chronic) Medical History: Medical History (Last Reviewed 07/23/18 @ 07:39 by Stone Morris MD) High blood pressure I10 Actinic keratosis L57.0 SUPERIOR HELICAL RIM RIGHT EAR Arthritis M19.90 COPD (chronic obstructive pulmonary disease) J44.9 Diabetes mellitus E11.9 Edema R60.9 Fever blister B00.1 History of alcohol abuse Z87.898 History of chicken pox Z86.19 Keratosis L57.0 PIGMENTED SEBORRHEIC KERATOSIS LEFT POSTERIOR EAR Kidney stones N20.0 Lung cancer C34.90 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 LEFT NASAL TIP LEFT SUPRAMEDIAL CHEEK LEFT UPPER NECK BY EARLOBE, MULTIFOCAL AND SUPERFICIAL Sinus problem J34.9 Stroke I63.9 Stroke I63.9 Tonsillitis J03.90 Allergies BEE STINGS Allergy (Severe, Uncoded 08/14/18 09:12) Anaphylaxis Home Medications: Ambulatory Orders Medication Instructions Recorded Multivitamins,Therapeutic 1 tab PO DAILY 12/22/13 [Multivitamin] Latanoprost 0.005% [Xalatan 1 drp EACH EYE QHS 01/07/15 Opthalmic] Aspirin [Aspirin, Baby] 81 mg PO DAILY@0800 06/30/16 Fluticasone/Umeclidin/Vilanter 1 each IH DAILY 07/22/18 [Trelegy Ellipta 100-62.5-25] Ropinirole HCl 1.5 mg PO 1700 07/22/18 Ropinirole HCl 3 mg PO BID 07/22/18 Olmesartan Medoxomil 5 mg PO DAILY 08/07/18 Albuterol IH (ProAir) [Proair Hfa] 2 puff INHALATION Q4H PRN PRN 01/07/19 Atorvastatin Calcium [Lipitor] 10 mg PO DAILY 01/07/19 Furosemide [Lasix] 20 mg PO QODAY 01/07/19 Surgical History: Surgical History (Last Reviewed 07/23/18 @ 07:39 by Stone Morris MD) HYDROCELE History of basal cell carcinoma excision Z98.890, Z85.828 RECONSTRUCTION 10 MM BASAL CELL CARCINOMA WOUND DEFORMITY LEFT NASAL TIP WITH BILOBED TRANSPOSITION SKIN FLAP RECONSTRUCTION - 03/01/09 EXCISION 1.8 CM PIGMENTED BASAL CELL CARCINOMA LEFT UPPER NECK BY EARLOBE WITH RHOMBOID TRANSPOSITION SKIN FLAP RECONSTRUCTION (24.5 CM2) - 01/14/15 History of excision of lesion Z98.890, Z87.2 EXCISION 7 MM PIGMENTED LESION LEFT NASAL TIP AND EXCISION 12 MM LESION LEFT LATERAL ABDOMINAL WALL WITH 4 CM CLOSURE 02/22/09 EXCISION 6 MM PIGMENTED LESION LEFT SUPRAMEDIAL CHEEK WITH 2 CM LAYERED CLOSURE AND EXCISION 5 MM PIGMENTED LESION LEFT POSTERIOR EAR WITH 15 MM LAYERED CLOSURE AND PARTIAL EXCISION 18 MM PIGMENTED LESION LEFT UPPER NECK BY EARLOBE WITH 3 CM LAYERED CLOSURE AND INTRADERMAL EXCISION 6 MM ACTINIC LESION SUPERIOR HELICAL RIM RIGHT EAR 08/27/14 History of eye surgery Z98.890 History of right knee surgery Z98.890 Sebaceous cyst of right axilla L72.3 Soft tissue mass M79.9 EXCISION SOFT TISSUE MASS RIGHT UPPER BACK Surgical History: - - R hydrocele surgery, several basal cell CA skin removal, removal of cyst right knee. Psychiatric History: No pertinent psych hx Lives: With Family Smoking Status: Current every day smoker Tobacco Use: Cigarettes Alcohol: None Drugs: None - *Family History Maternal Family History: Family History (Last Reviewed 07/23/18 @ 07:39 by Stone Morris MD) Father Heart disease Hypertension CVA (cerebral vascular accident) Grandmother Cancer Grandfather CVA (cerebral vascular accident) History Items: COPD Paternal Family History: Family History (Last Reviewed 07/23/18 @ 07:39 by Stone Morris MD) Father Heart disease Hypertension CVA (cerebral vascular accident) Grandmother Cancer Grandfather CVA (cerebral vascular accident) History Items: Heart Disease, Hypertension, Stroke Review of Systems Constitutional: Denies: Anorexia, Chills, Fever, Weakness Eyes: Denies: Blurred vision, Double vision, Drainage, Redness HEENT: Denies: Difficulty Hearing, Ear Pain, Eye Pain, Nasal Congestion, Sore Throat Cardiovascular: Reports: Light Headedness, Palpitations. Denies: Chest Pain, Chest Pressure, Chest Tightness, Edema, Heaviness, Syncope Respiratory: Denies: Cough, Pleuritic Pain, Shortness of Breath, Sputum production, Wheezing Gastrointestinal: Denies: Abdominal Pain, Constipation, Diarrhea, Nausea, Vomiting Genitourinary: Denies: Dysuria, Frequency, Hematuria Musculoskeletal: Denies: Arm Pain, Back Pain, Foot Pain Skin: Denies: Dryness, Rash Neurological: Reports: Balance problems. Denies: Change in Speech, Slurred speech, Confusion, Focal weakness, Headaches, Incoordination, Numbness, Tingling Psychiatric: Denies: Anxiety, Depression Endocrine: Denies: Change in Body Habitus, Polydipsia, Polyuria VTE Information - Inpt Only VTE Present on Admission: No VTE Mechan Device Prophylaxis: None VTE Pharm Prophylaxis ordered?: Yes Patient Problems: Active and Suspected Problems (Last Reviewed 07/23/18 @ 07:39 by Stone Morris MD) Vertigo (Acute) Palpitations (Acute) - Physical Exam General: Alert, Oriented x3, Cooperative, No apparent distress HEENT: Atraumatic, PERRLA, EOMI, Normocephalic Oral: Moist Mucosa, No Gingival or Mucosal Lesions/ Ulcerations Neck: Supple, No JVD, Negative Carotid Bruits, Trachea Midline, Thyroid Normal Size and Texture Lungs: Clear to auscultation, Normal air movement, No rhonchi, No wheeze, No rales, Diminished Cardiovascular: Regular rate, Regular Rhythm, Normal S1, Normal S2, PMI Normal Abdomen: Bowel Sounds Present, Soft, Non Tender, Non-Distended, No Hepato- splenomegaly Extremities: No clubbing, No cyanosis, No edema Skin: No rashes, No breakdown Lymphatic: No Cervical, Supraclavicular, or Inguinal Adenopathy Neurological: Cranial nerves II-XII grossly intact, Motor Exam 5/5 strength throughout Psych/Mental Status: Normal Affect, Appropriate, Alert and oriented to time, place, person, mood and affect Vital Signs Temp Pulse Resp BP Pulse Ox 97.9 F 64 18 153/100 H 99 01/07/19 15:33 01/07/19 18:00 01/07/19 18:00 01/07/19 18:00 01/07/19 18:00 Oxygen Delivery Method Room Air Weight: 188 lb 4.396 oz Body Mass Index (BMI) 27.8 Finger Stick Blood Glucose 113 Laboratory Tests Past 24 Hrs 01/07/19 01/07/19 01/07/19 15:35 15:35 16:10 WBC 8.9 RBC 5.81 Hgb 16.7 H Hct 49.9 MCV 85.9 MCH 28.7 MCHC 33.5 RDW Std Deviation 52.0 H RDW Coeff of Gayle 17.5 H Plt Count 212 MPV 11.1 Immature Gran % (Auto) 0.300 Neut % (Auto) 53.7 Lymph % (Auto) 35.1 [place] % (Auto) 7.5 Eos % (Auto) 2.5 Baso % (Auto) 0.9 Absolute Neuts (auto) 4.8 Absolute Lymphs (auto) 3.13 Nucleated RBC % 0 Sodium 143 Potassium 3.6 Chloride 111 H Carbon Dioxide 29.0 Anion Gap 3 L BUN 19 H Creatinine 1.24 Estim Creat Clear Calc 48.31 Est GFR (MDRD) Af Amer 72 Est GFR (MDRD) Non-Af 60 BUN/Creatinine Ratio 15.3 Glucose 147 H Calcium 9.7 Urine Color Straw Urine Clarity Sl. Cloudy Urine pH 7.0 Ur Specific [place] 1.010 Urine Protein 100 H Urine Glucose (UA) Normal Urine Ketones Negative Urine Occult Blood 25 H Urine Nitrite Negative Urine Bilirubin Negative Urine Urobilinogen Normal Ur Leukocyte Esterase 100 H Urine RBC 0-5 SEEN Urine WBC 10-25 SEEN Ur Squamous Epith Cells 0-5 SEEN Urine Bacteria 0 SEEN Hyaline Casts 0-5 SEEN Urine Mucus 0 SEEN Assessment/Plan All Active Problems (Last Reviewed 07/23/18 @ 07:39 by Stone Morris MD) Vertigo (Acute) Palpitations (Acute) This is a 78 years old male patient presented to the emergency room because of symptoms of dizziness which was described as spinning sensation associated with palpitation, found to have elevated blood pressure and he is being admitted for vertigo for treatment and evaluation. #1 dizziness/vertigo/palpitation: Symptoms could be due to BPPV. Because of associated balance problem as well as palpitation and elevated blood pressure, acute stroke cannot be ruled out. 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 Also, he had a strong family history of stroke. CTA head and neck revealed no acute findings. He has no focal deficit on physical exam. EKG reviewed as above. Plan: Admit to PCU for observation, cardiac monitoring, NIH stroke scale, continue aspirin and statins, MRI brain, Antivert as needed, PT OT evaluation and treatment. If the MRI brain came back positive for acute stroke, patient will need to the echocardiogram. #2 type 2 diabetes mellitus: Currently, he is not on any antidiabetic medications. Hemoglobin A1c was 6.2 on July,. Blood sugar on admission is 147. Plan: ADA diet, Accu-Cheks AC at bedtime, insulin sliding scale. #3 hypertension: Blood pressure was slightly elevated initially but improved. Continue olmesartan and Lasix. #4 hyperlipidemia: Continue statins. #5 history of lung cancer: Stable, in remission. #6 COPD: Clinically stable, pulse ox is maintained on room air. Plan to continue Ellipta, albuterol as needed. #7 DVT prophylaxis: Subcu Lovenox. This note was generated with [employer] dictation software. It may contain incorrect words, spelling, and punctuation that were not noted in checking the note before signing. Code Visit OBSV E&M: 99354 Initial observation care L3
--- NOTE | 2019-01-07 18:12 | MRI_ITS ---
STUDY: MRI BRAIN WITHOUT CONTRAST REASON FOR EXAM: Male, 78 years old. Vertigo TECHNIQUE: Standardized multiplanar fat and water weighted pulse sequences were obtained. COMPARISON: CTA of the brain January 07, 2019 MRI of the brain November 22, 2017 FINDINGS: Normal size of the ventricles and extra-axial spaces for the patient's age. Moderate periventricular white matter ischemic change without mass effect or restricted diffusion.. Small old lacunar infarct in left thalamus and basal ganglia.. There is no extra-axial fluid accumulation. Normal flow voids within the major intracranial circulation suggesting patency by spin echo criteria. Normal sella turcica, pituitary gland, infundibular stalk, optic chiasm and hypothalamus. Normal tectal plate and pineal gland. Normal midbrain, casandra and medulla. Normal cerebellum. Normal basal cisterns. Normal bilateral temporal bones. Normal bilateral internal auditory canals. No demonstrated orbital abnormality, within the constraints of a routine brain study. Normal visualized paranasal sinuses. There is diminished signal seen in the diploic space of the left frontal bone on T1 which becomes increased signal intensity on STIR and T2-weighted imaging sequence which is nonspecific in etiology but could be secondary to inflammatory disease or neoplasm benign or malignant... This finding is unchanged since prior study Normal visualized soft tissue structures. Normal visualized upper cervical spine. No significant changes since prior study MRI/Brain without Contrast IMPRESSION: Moderate periventricular white matter ischemic changes without evidence for acute infarct. Small old lacunar infarcts in the left thalamus and basal ganglia. Electronically Signed: Osman Viera MD at 20:00 EDT , Service support ,
[2019-01-07] MEDS: Ipratropium/Albuterol Sulfate 3 ML AMPUL.NEB INHALATION (20:30)
[2019-01-07] MEDS: Budesonide Respules 0.5 MG/2 ML AMPUL.NEB. INHALATION (20:30)
[2019-01-07] MEDS: Pramipexole Di-HCl 1 MG Tablet 1.5 MG PO (21:32)
[2019-01-07] MEDS: Latanoprost 0.005% 1 Bottle 1 DRP EACH EYE (21:49)
[2019-01-07 22:01] LABS: Bedside Glucose 117 mg/dL (70-110)
[2019-01-08 03:00] VITALS: PULSE 59
[2019-01-08 03:14] VITALS: BP 138/71; PULSE 62; RESP 16; TEMP 36.9; O2SAT 95
[2019-01-08 06:21] LABS: Cholesterol 146 mg/dL (200); High Density Lipoprotein 72 mg/dL; Triglycerides 71 mg/dL; Very Low Density Lipoprotein 14 mg/dL (5-40)
[2019-01-08 06:51] LABS: Bedside Glucose 120 mg/dL (70-110)
[2019-01-08 06:55] VITALS: PULSE 84; RESP 18; O2SAT 93
[2019-01-08] MEDS: Ipratropium/Albuterol Sulfate 3 ML AMPUL.NEB INHALATION (06:55)
[2019-01-08] MEDS: Budesonide Respules 0.5 MG/2 ML AMPUL.NEB. INHALATION (06:55)
[2019-01-08 07:00] VITALS: PULSE 80
[2019-01-08] MEDS: Atorvastatin Calcium 10 MG Tablet PO (07:59)
[2019-01-08] MEDS: Pramipexole Di-HCl 1 MG Tablet 1.5 MG PO (07:59)
[2019-01-08] MEDS: Losartan Potassium 25 MG Tablet 12.5 MG PO ×2 (07:59→11:35)
[2019-01-08] MEDS: Aspirin 81 MG TAB.CHEW PO (07:59)
[2019-01-08] MEDS: Enoxaparin 30 MG/0.3 ML Syringe SC (07:59)
[2019-01-08 09:15] VITALS: BP 146/76; PULSE 75; RESP 14; TEMP 36.6; O2SAT 94
--- NOTE | 2019-01-08 11:27 | CASEMGMT ---
Per Deejay CHARLES, pt to be sent home with vestibular OP therapy. This RN CM to room and pt states has had therapy at [facility] previously. Order for OP vestibular therapy at [facility] given to son at this time and faxed to [facility]. Son states that he sets up all pt appt's so he will make sure pt set up for appt. This RN CM spent an extensive amount of time at bedside with pt/son as pt discussed discontent with Dr. Baker who he f/u with OP previously and pt states he may try to f/u with Dr. Garcia prior to switching to another neurologist out of town. Pt states also has seen several pain management physicians in the past without relief of back/neck pain. Pt/son state no further questions/concerns/needs at this time. SStaten DEVORA CM
[2019-01-08 11:41] LABS: Bedside Glucose 118 mg/dL (70-110)
--- NOTE | 2019-01-08 11:45 | DCINST_ITS ---
- Discharge Diagnoses Current Active Problems: Current Active and Chronic Problems (Last Reviewed 07/23/18 @ 07:39 by Stone Morris MD) Vertigo (Acute) Palpitations (Acute) You will use the following diet at home:: Cardiac Your food should be the consistency of: Regular Your liquids should be the consistency of: Regular/Thin Discharge Activity: May Not Drive - no driving if experiencing vertigo or requiring meclizine Allergies/Adverse Reactions: Allergies BEE STINGS Allergy (Severe, Uncoded 08/14/18 09:12) Anaphylaxis Medications to take at Discharge Multivitamins,Therapeutic [Multivitamin] 1 tab PO DAILY 12/22/13 Latanoprost 0.005% [Xalatan Opthalmic] 1 drp EACH EYE QHS 01/07/15 Aspirin [Aspirin, Baby] 81 mg PO DAILY@0800 06/30/16 Fluticasone/Umeclidin/Vilanter [Trelegy Ellipta 100-62.5-25] 1 each IH DAILY 07/22/18 Ropinirole HCl 1.5 mg PO 1700 07/22/18 Ropinirole HCl 3 mg PO BID 07/22/18 Albuterol IH (ProAir) [Proair Hfa] 2 puff INHALATION Q4H PRN PRN 01/07/19 Furosemide [Lasix] 20 mg PO QODAY 01/07/19 Atorvastatin Calcium 40 mg PO DAILY #30 tab 01/08/19 Meclizine HCl [Antivert] 25 mg PO TID PRN PRN #42 tab 01/08/19 Olmesartan Medoxomil 10 mg PO DAILY #60 tab 01/08/19 The following prescriptions were given: Meclizine HCl [Antivert] 25 mg PO TID PRN PRN #42 tab PRN Reason: VERTIGO Prescription Printed Atorvastatin Calcium 40 mg PO DAILY #30 tab Prescription Printed Olmesartan Medoxomil 10 mg PO DAILY #60 tab Prescription Printed Orders to be completed after discharge: 30-Day Event [employer]order [[facility]] Time Frame: 01/08/19, Location: None Selected Primary Care Physician: Kevon Harrell MD [Primary Care Provider] - Please follow up with your Primary Care Physician in: 1-2 weeks Test Results: Test results from this visit will be discussed in further detail at your follow- up appointment, if applicable. Please Follow Up With: Oneil Obrien MD - Cardiology When: 4 weeks Please Follow Up With: Winston Garcia MD - Neurology When: 3-4 weeks Proposed Discharge Date: 01/08/19
--- NOTE | 2019-01-08 12:29 | PHA.DC.MC ---
Pharmacy Service has performed discharge medication reconciliation and counseling for this patient. The patient's discharge medication list was reviewed for discrepancies and discrepancies were resolved. 1. MECLIZINE 25MG PO Q6H PRN VERTIGO 2. ATORVASTATIN 40MG PO DAILY 3. OLMESARTAN 10MG PO DAILY Home Medications Multivitamins,Therapeutic [Multivitamin] 1 tab PO DAILY 12/22/13 Latanoprost 0.005% [Xalatan Opthalmic] 1 drp EACH EYE QHS 01/07/15 Aspirin [Aspirin, Baby] 81 mg PO DAILY@0800 06/30/16 Fluticasone/Umeclidin/Vilanter [Trelegy Ellipta 100-62.5-25] 1 each IH DAILY 07/22/18 Ropinirole HCl 1.5 mg PO 1700 07/22/18 Ropinirole HCl 3 mg PO BID 07/22/18 Albuterol IH (ProAir) [Proair Hfa] 2 puff INHALATION Q4H PRN PRN 01/07/19 Furosemide [Lasix] 20 mg PO QODAY 01/07/19 Atorvastatin Calcium 40 mg PO DAILY #30 tab 01/08/19 Meclizine HCl [Antivert] 25 mg PO TID PRN PRN #42 tab 01/08/19 Olmesartan Medoxomil 10 mg PO DAILY #60 tab 01/08/19 The patient was counseled on the following discharge medications and changes in medications for homegoing were reviewed. The Reason for Use, instructions for use, and potential side effects were reviewed for all new medications. The patient's questions regarding all of their medications were answered. The patient was able to verbally demonstrate an understanding of their discharge medications.
--- NOTE | 2019-01-08 13:43 | DS.PCM_ITS ---
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 Right upper lobe pulmonary nodule. No other acute superimposed cardiopulmonary process. CT/CTA Head AND Neck W/ Contrast IMPRESSION: No CTA evidence of intracranial aneurysm or vascular malformation Dense calcified atherosclerotic plaque in both common carotid artery bulbs but no CTA evidence of significant stenosis Small right vertebral artery MRI/Brain without Contrast IMPRESSION: Moderate periventricular white matter ischemic changes without evidence for acute infarct. Small old lacunar infarcts in the left thalamus and basal ganglia. Operations: None Procedures: None Summary of Care Provided: Hospital Course: The patient is a 78 year old M with pmhx as above who presented to the ER with dizziness that began that day of presentation. He noted that it occurred with standing and turning his head both ways. He described it as a spinning sensation with some associated lightheadedness. He also complained that he felt heart palpitations. He did not have focal weakness, slurred speech, numbness, or tingling. He had had a similar episode a week prior however it resolved on its own. In the ER he had a CTA of the head and neck without acute issued, EKG was NSR, CXR was negative, and blood work was unremarkable. He was admitted to the PCU with concern for underlying stroke. He had some PVCs on tele. MRI brain showed old lacunar infarcts in the thalamus and basal ganglia. He continued to have mild dizziness with position change. We advised vestibular therapy as an outpatient, and provided a Rx for prn meclizine. As he had old strokes we recommended continuing baby aspirin but increasing atorvastatin to 40 qhs. His BP was not well controlled well here so we increased his home olmesartan dose. As he had prior stroke and complained of palpitations we arranged for him to have a 30 day event monitor which he will follow up with Dr. Lamas after completing. He has seen [facility] in the past and we have advised him to follow up with Dr. Garcia in 3-4 weeks. He will also need to follow up with his PCP in 1-2 weeks. This patient was seen by Demetrius Keating PA-C under the supervision of Dr. Sinclair. [] - Physical Exam General: Alert, Oriented x3, Cooperative HEENT: Atraumatic, PERRLA, EOMI, Normocephalic Neck: Supple, No JVD, Negative Carotid Bruits Lungs: Clear to auscultation, Normal air movement Cardiovascular: Regular rate, No murmurs Abdomen: Bowel Sounds Present, Soft, Non Tender Extremities: No edema, Capillary Refill Less than 3 Seconds Skin: No rashes, No breakdown Musculoskeletal: No Tenderness to Palpation of Joints or Extremities Neurological: Cranial nerves II-XII grossly intact Psych/Mental Status: Normal Affect, Appropriate, Alert and oriented to time, place, person, mood and affect Vital Signs Temp Pulse Resp BP Pulse Ox 97.9 F 75 14 146/76 H 94 01/08/19 09:15 01/08/19 09:15 01/08/19 09:15 01/08/19 09:15 01/08/19 09:15 Oxygen Delivery Method Room Air Weight: 179 lb 10.828 oz Body Mass Index (BMI) 26.5 Finger Stick Blood Glucose 113 Intake and Output for Last 24 Hours 01/06/19 01/07/19 01/08/19 23:59 23:59 23:59 Intake Total 150 / 150 450 / 450 Balance 150 / 150 450 / 450 Laboratory Tests Past 24 Hrs 01/07/19 01/07/19 01/07/19 15:35 15:35 16:10 WBC 8.9 RBC 5.81 Hgb 16.7 H Hct 49.9 MCV 85.9 MCH 28.7 MCHC 33.5 RDW Std Deviation 52.0 H RDW Coeff of Gayle 17.5 H Plt Count 212 MPV 11.1 Immature Gran % (Auto) 0.300 Neut % (Auto) 53.7 Lymph % (Auto) 35.1 [place] % (Auto) 7.5 Eos % (Auto) 2.5 Baso % (Auto) 0.9 Absolute Neuts (auto) 4.8 Absolute Lymphs (auto) 3.13 Nucleated RBC % 0 Sodium 143 Potassium 3.6 Chloride 111 H Carbon Dioxide 29.0 Anion Gap 3 L BUN 19 H Creatinine 1.24 Estim Creat Clear Calc 48.31 Est GFR (MDRD) Af Amer 72 Est GFR (MDRD) Non-Af 60 BUN/Creatinine Ratio 15.3 Glucose 147 H Calcium 9.7 Triglycerides Cholesterol LDL Cholesterol VLDL Cholesterol HDL Cholesterol Urine Color Straw Urine Clarity Sl. Cloudy Urine pH 7.0 Ur Specific [place] 1.010 Urine Protein 100 H Urine Glucose (UA) Normal Urine Ketones Negative Urine Occult Blood 25 H Urine Nitrite Negative Urine Bilirubin Negative Urine Urobilinogen Normal Ur Leukocyte Esterase 100 H Urine RBC 0-5 SEEN Urine WBC 10-25 SEEN Ur Squamous Epith Cells 0-5 SEEN Urine Bacteria 0 SEEN Hyaline Casts 0-5 SEEN Urine Mucus 0 SEEN 01/08/19 05:25 WBC RBC Hgb Hct MCV MCH MCHC RDW Std Deviation RDW Coeff of Gayle Plt Count MPV Immature Gran % (Auto) Neut % (Auto) Lymph % (Auto) [place] % (Auto) Eos % (Auto) Baso % (Auto) Absolute Neuts (auto) Absolute Lymphs (auto) Nucleated RBC % Sodium Potassium Chloride Carbon Dioxide Anion Gap BUN Creatinine Estim Creat Clear Calc Est GFR (MDRD) Af Amer Est GFR (MDRD) Non-Af BUN/Creatinine Ratio Glucose Calcium Triglycerides 71 Cholesterol 146 LDL Cholesterol 60 VLDL Cholesterol 14 HDL Cholesterol 72 Urine Color Urine Clarity Urine pH Ur Specific [place] Urine Protein Urine Glucose (UA) Urine Ketones Urine Occult Blood Urine Nitrite Urine Bilirubin Urine Urobilinogen Ur Leukocyte Esterase Urine RBC Urine WBC Ur Squamous Epith Cells Urine Bacteria Hyaline Casts Urine Mucus POC Glucose 01/08/19 01/08/19 01/07/19 11:22 06:36 21:36 POC Glucose 118 H 120 H 117 H Discharge Diet: Low fat/ Low Cholesterol, 2000 mg Sodium Diet Discharge Activity: May Not Drive - no driving if experiencing vertigo or requiring meclizine Home Medications: Medications to take at Discharge Multivitamins,Therapeutic [Multivitamin] 1 tab PO DAILY 12/22/13 Latanoprost 0.005% [Xalatan Opthalmic] 1 drp EACH EYE QHS 01/07/15 Aspirin [Aspirin, Baby] 81 mg PO DAILY@0800 06/30/16 Fluticasone/Umeclidin/Vilanter [Trelegy Ellipta 100-62.5-25] 1 each IH DAILY 07/22/18 Ropinirole HCl 1.5 mg PO 1700 07/22/18 Ropinirole HCl 3 mg PO BID 07/22/18 Albuterol IH (ProAir) [Proair Hfa] 2 puff INHALATION Q4H PRN PRN 01/07/19 Furosemide [Lasix] 20 mg PO QODAY 01/07/19 Atorvastatin Calcium 40 mg PO DAILY #30 tab 01/08/19 Meclizine HCl [Antivert] 25 mg PO TID PRN PRN #42 tab 01/08/19 Olmesartan Medoxomil 10 mg PO DAILY #60 tab 01/08/19 Following Prescrptions Were Given to Patient: Meclizine HCl [Antivert] 25 mg PO TID PRN PRN #42 tab PRN Reason: VERTIGO Prescription Printed Atorvastatin Calcium 40 mg PO DAILY #30 tab Prescription Printed Olmesartan Medoxomil 10 mg PO DAILY #60 tab Prescription Printed Other Amb Orders: 30-Day Event Recorder [[facility]] Time Frame: 01/08/19, Location: None Selected Primary Care Physician: Kevon Harrell MD [Primary Care Provider] - Please follow up with your Primary Care Physician in: 1-2 weeks Please Follow Up With: Oneil Lamas MD - Cardiology When: 4 weeks Please Follow Up With: Winston Garcia MD - Neurology When: 3-4 weeks Disposition: Home Minutes spent on discharge:: 40 Patient Condition:: Stable Medical Necessity - Tobacco Use Smoking Status: Current every day smoker Tobacco Use: Cigarettes Meaningful Use Info Meaningful Use Diagnoses (Choose all that apply): None applicable <Jg Sinclair - Last Filed: 01/08/19 14:28> Discharge Date and Diagnosis - Secondary Discharge Diagnosis Chronic Problems (Last Reviewed 07/23/18 @ 07:39 by Stone Morris MD) Diabetes mellitus, type II (Chronic) Personal history of skin cancer (Chronic) Tobacco use (Chronic) COPD (chronic obstructive pulmonary disease) (Chronic) HLD (hyperlipidemia) (Chronic) HTN (hypertension) (Chronic) Stage 1 lung cancer, RUL mass (Chronic) History of basal cell carcinoma (Chronic) BCC left upper neck by earlobe (Chronic) Hospital Course and Treatment Summary of Care Provided: This patient was seen in conjunction with Demetrius PACHECO. I have independently interviewed and examined the patient and reviewed pertinent history, examination findings, laboratory and plan of management. I have reviewed the note and agree with the documented findings with the few additional points. 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 Patient had CT of head and neck done which did not show any acute hemodynamically significant stenosis or vascular malformation. EKG shows normal sinus rhythm. MRI shows no acute infarct or bleeding. Small old Ariel infarct in left thalamus and basal ganglia. Patient blood pressure was also elevated in the ER, 184/104 which was controlled during hospital stay. Last blood pressure 146/76. Fasting profile shows LDL 60, HDL 72. Patient denies dysuria, increased frequency or urgency. UA shows WBC 10-25 cells probably asymptomatic bacteriuria/contamination. Discharge medication reconciliation done. Discharge follow-up instructions completed. Discharge process discussed with the patient and all questions were answered to patient's satisfaction.. Total time spent, exact 35 minutes on discharge meds reconciliation, examination, review of imaging and blood test and discussion with the patient on follow-up instructions. For history of palpitation, 30-day event monitor was advised with follow-up Dr. lamas. Follow-up Dr. Garcia in 3 to 4 weeks. I have discussed my assessment with Demetrius PACHECO and orders have been reviewed. [] Clinical Impression(s) from Imaging Studies Chest X-Ray 01/07/19 16:00 IMPRESSION: Evidence of COPD/emphysema. Right upper lobe pulmonary nodule. No other acute superimposed cardiopulmonary process. Head/Neck CTA 01/07/19 16:17 IMPRESSION: No CTA evidence of intracranial aneurysm or vascular malformation Dense calcified atherosclerotic plaque in both common carotid artery bulbs but no CTA evidence of significant stenosis Small right vertebral artery Brain MRI 01/07/19 18:12 IMPRESSION: Moderate periventricular white matter ischemic changes without evidence for acute infarct. Small old lacunar infarcts in the left thalamus and basal ganglia. Subjective: Seen and examined. Patient has lost vision in right eye in the past and was told secondary to the blood clot probably retinal artery thrombosis. Patient was admitted yesterday for dizziness, lightheadedness and gait incoordination and felt like he is going to fall. CTA head and neck did not reveal evidence of acute infarct or hemorrhage or hemodynamically significant stenosis or aneurysm. Small right vertebral artery. Dizziness is much better. - Physical Exam General: Alert, Oriented x3, Cooperative HEENT: Atraumatic, PERRLA, EOMI, Normocephalic, - - Right eye no vision. Neck: Supple, No JVD, Negative Carotid Bruits Lungs: Clear to auscultation, Normal air movement, No rhonchi, No wheeze, No rales Cardiovascular: Regular rate, Regular Rhythm, Normal S1, Normal S2, No murmurs Abdomen: Bowel Sounds Present, Soft, Non Tender, Non-Distended Extremities: No edema, Capillary Refill Less than 3 Seconds Skin: No rashes, No breakdown Musculoskeletal: No Tenderness to Palpation of Joints or Extremities, Arthritic Changes Neurological: Cranial nerves II-XII grossly intact, Deep Tendon Reflexes 2+/4 and Symmetrical, Neuro grossly intact, Motor Exam 5/5 strength throughout Psych/Mental Status: Normal Affect, Appropriate Vital Signs Temp Pulse Resp BP Pulse Ox 97.9 F 75 14 146/76 H 94 01/08/19 09:15 01/08/19 09:15 01/08/19 09:15 01/08/19 09:15 01/08/19 09:15 Oxygen Delivery Method Room Air Weight: 179 lb 10.828 oz Body Mass Index (BMI) 26.5 Finger Stick Blood Glucose 113 Intake and Output for Last 24 Hours 01/06/19 01/07/19 01/08/19 23:59 23:59 23:59 Intake Total 150 / 150 450 / 450 Balance 150 / 150 450 / 450 Laboratory Tests Past 24 Hrs 01/07/19 01/07/19 01/07/19 15:35 15:35 16:10 WBC 8.9 RBC 5.81 Hgb 16.7 H Hct 49.9 MCV 85.9 MCH 28.7 MCHC 33.5 RDW Std Deviation 52.0 H RDW Coeff of Gayle 17.5 H Plt Count 212 MPV 11.1 Immature Gran % (Auto) 0.300 Neut % (Auto) 53.7 Lymph % (Auto) 35.1 [place] % (Auto) 7.5 Eos % (Auto) 2.5 Baso % (Auto) 0.9 Absolute Neuts (auto) 4.8 Absolute Lymphs (auto) 3.13 Nucleated RBC % 0 Sodium 143 Potassium 3.6 Chloride 111 H Carbon Dioxide 29.0 Anion Gap 3 L BUN 19 H Creatinine 1.24 Estim Creat Clear Calc 48.31 Est GFR (MDRD) Af Amer 72 Est GFR (MDRD) Non-Af 60 BUN/Creatinine Ratio 15.3 Glucose 147 H Calcium 9.7 Triglycerides Cholesterol LDL Cholesterol VLDL Cholesterol HDL Cholesterol Urine Color Straw Urine Clarity Sl. Cloudy Urine pH 7.0 Ur Specific [place] 1.010 Urine Protein 100 H Urine Glucose (UA) Normal Urine Ketones Negative Urine Occult Blood 25 H Urine Nitrite Negative Urine Bilirubin Negative Urine Urobilinogen Normal Ur Leukocyte Esterase 100 H Urine RBC 0-5 SEEN Urine WBC 10-25 SEEN Ur Squamous Epith Cells 0-5 SEEN Urine Bacteria 0 SEEN Hyaline Casts 0-5 SEEN Urine Mucus 0 SEEN 01/08/19 05:25 WBC RBC Hgb Hct MCV MCH MCHC RDW Std Deviation RDW Coeff of Gayle Plt Count MPV Immature Gran % (Auto) Neut % (Auto) Lymph % (Auto) [place] % (Auto) Eos % (Auto) Baso % (Auto) Absolute Neuts (auto) Absolute Lymphs (auto) Nucleated RBC % Sodium Potassium Chloride Carbon Dioxide Anion Gap BUN Creatinine Estim Creat Clear Calc Est GFR (MDRD) Af Amer Est GFR (MDRD) Non-Af BUN/Creatinine Ratio Glucose Calcium Triglycerides 71 Cholesterol 146 LDL Cholesterol 60 VLDL Cholesterol 14 HDL Cholesterol 72 Urine Color Urine Clarity Urine pH Ur Specific [place] Urine Protein Urine Glucose (UA) Urine Ketones Urine Occult Blood Urine Nitrite Urine Bilirubin Urine Urobilinogen Ur Leukocyte Esterase Urine RBC Urine WBC Ur Squamous Epith Cells Urine Bacteria Hyaline Casts Urine Mucus POC Glucose 01/08/19 01/08/19 01/07/19 11:22 06:36 21:36 POC Glucose 118 H 120 H 117 H Code Visit OBSV E&M: 84721 Observation care discharge
== END 2019-01-08 11:45 | disposition home or self-care (01) ==
LOC: ED 17:31 → PCU 18:01
PROVIDERS: Family Medicine; Admitting Provider Hospitalist; Emergency Provider Emergency Medicine; Family Provider Family Medicine; PCP Family Medicine; Referring Provider Hospitalist; Visit Provider Internal Medicine
DX: H81.10 Benign paroxysmal vertigo, unspecified ear (principal); E11.9 Type 2 diabetes mellitus without complications; E78.5 Hyperlipidemia, unspecified; I10 Essential (primary) hypertension; J44.9 Chronic obstructive pulmonary disease, unspecified; H54.40 Blindness, one eye, unspecified eye; I69.398 Other sequelae of cerebral infarction; M19.90 Unspecified osteoarthritis, unspecified site; F17.210 Nicotine dependence, cigarettes, uncomplicated; Z85.828 Personal history of other malignant neoplasm of skin; Z79.899 Other long term (current) drug therapy; Z79.82 Long term (current) use of aspirin; Z79.51 Long term (current) use of inhaled steroids; Z85.118 Personal history of other malignant neoplasm of bronchus and lung
CPT/HCPCS: 36415; 70496; 70498; 70551; 71045; 80048; 80061; 81001; 82962; 85025; 87086; 93005; 94640; 96372; 99218; 99285; Q9967; G0378

== ENCOUNTER 2019-01-21 08:30 | Outpatient (RCR) | payer MEDICARE, BC, SELFPAY ==
[2019-01-07 18:45] VITALS: BMI 26.5
[2019-01-15 08:42] VITALS: BMI 26.5
--- NOTE | 2019-01-21 09:47 | HP.PTEVAL ---
Patient's Visit Information TIANA ALEX is a 78 year old M referred to Physical Therapy by JUNIOR Akins with a diagnosis of vertigo. Date of Evaluation: 01/21/19 Physical Therapist: INDY Vega - Visit Plan Plan: DC PT at this time. No skilled PT needed at this time. - Subjective Findings: This happened on SundayJan 07. Pt reports that he came home early afternoon and started to get shaky and figured it was blood sugar but he could not stand to make anything... the room was spinning and then he tried to get up and almost passed out and called son to pick him up so he called the squad. His BP was 190/100. They ran all kinds of tests including MRI and CAT SCAN. They said he had an old stroke and one in 2013 ( 2 total).....They never gave him a definite answer as to why he was dizzy. He went in on a Sunday and came out on a Sunday. He has not had anymore dizziness and has meds for dizziness but not had to take it. He tends to get some orthostatic episodes as well. No balance issues. He call roll over in bed without an issue. - Objective Gait: Normal gait pattern other than smaller stride. FGA: . CATSIB: 120/120. LE MMT: B hip flex 4-/5, B knee ext and knee flex 4/5, B hip abd 4-/5 Pt is able to walk on heels and toes without issue. Sit to stand: able to rise without the use of UE's. Smooth pursuit horizontal and vertical X 60 seconds no dizziness. VOR X 1 X 60 seconds no dizziness - Balance Scores Functional Gait Assessment Score: 28 % Disability: 6.6700 - Anticipated Interventions Thank you for the opportunity to evaluate your patient. For Medicare and Medicare HMO plans, please review the plan of care and approve it. It will need to be FAXED BACK to us at [phone] for Medicare purposes. For Medicare only, by signing this I certify the plan of care. Please let me know if there are questions or concerns regarding this plan of care. Physician Signature: Date:
--- NOTE | 2019-01-21 09:47 | HP.PTDCSUM ---
HP - PT D/C Summary It has been my pleasure to treat TIANA ALEX under orders from JUNIOR Akins, for the diagnosis of vertigo for a total of 1 visit(s). Discharge Date: 01/21/19 Please see the following information for a summary of their discharge status. - Plan Plan: DC PT at this time. No skilled PT needed at this time. - D/C Information Discharge Comments: DC PT. No skilled PT needed at this time. If there are questions or concerns regarding this patient's physical therapy, please feel free to call me at [phone]. Thank you for the referral of this patient. Sincerely, Izabel Bucio, MPT
== END 2019-01-21 14:05 | disposition home or self-care (01) ==
LOC: PT 08:30
PROVIDERS: Family Provider Family Medicine; PCP Family Medicine; Referring Provider Physician Assistant; Visit Provider Physician Assistant
DX: R42 Dizziness and giddiness (principal)
CPT/HCPCS: 97161

== ENCOUNTER → 2019-02-12 | Outpatient (CLI) | payer MEDICARE, BC, SELFPAY ==
[2019-02-05 08:26] VITALS: BMI 27.7
[2019-02-12 14:36] LABS: Absolute Lymphocyte Count 2.74 X10^3/uL (0.83-4.51); Absolute Neutrophil Count 6.3 X10^3/uL (2.0-7.7); Basophil# 0.08 X10^3/uL; Basophil% 0.8 % (0-1); Eosinophil# 0.16 X10^3/uL; Eosinophils% 1.6 % (0-5); Hematocrit 49.5 % (40-54); Hemoglobin 16.1 g/dL (13.0-16.5); Lymphocyte # 2.74 X10^3/ul (4.0); Lymphocyte % 26.9 % (19-41); Mean Corp Hgb Conc 32.5 g/dL (32-36); Mean Corpuscular Volume 89.2 fL (80-94); Mean Platelet Vol. 11.7 fl (6.2-12.0); Monocyte# 0.81 X10^3/uL; NRBC Flagged by Analyzer 0 % (0-5); Neutrophil # 6.34 X10^3/uL (2.7-7.7); Neutrophil % 62.3 % (47-70); Platelet Count 205 K/mm3 (150-450); RBC Distribution Width CV 17.9 % (11.6-14.6); RBC Distribution Width SD 57.2 fl (35.1-43.9); Red Blood Count 5.55 M/mm3 (4.6-6.2); White Blood Count 10.2 K/mm3 (4.4-11.0)
[2019-02-12 14:50] LABS: ALB/GLOB Ratio 0.9 RATIO (0.9-2.4); AST(SGOT) 22 U/L (15-37); Alanine Aminotransfer ALT/SGPT 33 U/L (16-61); Albumin, Serum 3.3 g/dL (3.2-5.0); Alkaline Phosphatase 133 U/L (45-117); Anion Gap 3 (5-15); BUN 19 mg/dL (7-18); BUN/Creat Ratio 16.2 RATIO (10-20); Calcium,Total 9.4 mg/dL (8.5-10.1); Chloride 110 mmol/L (98-107); Creatinine, Serum 1.17 mg/dL (0.70-1.30); EST Glomerular Filtration Rate 64 mL/min (>60); Est Glom Filt Rate - Afr Amer 77 mL/min (>60); Globulin 3.5 g/dL (2.2-4.2); Glucose 92 mg/dL (74-106); Potassium 4.2 mmol/L (3.5-5.1); Protein, Total 6.8 g/dL (6.4-8.2); Sodium Level 142 mmol/L (136-145)
[2019-02-12 14:56] LABS: Hemoglobin A1c 5.8 % (4.2-6.3)
== END | disposition home or self-care (01) ==
LOC: MFPLAB 11:38
PROVIDERS: Family Provider Family Medicine; PCP Family Medicine; Visit Provider Family Medicine
DX: E11.29 Type 2 diabetes mellitus with other diabetic kidney complication (principal)
CPT/HCPCS: 36415; 80053; 83036; 85025

== ENCOUNTER → 2019-03-05 | Outpatient (CLI) | payer MEDICARE, BC, SELFPAY ==
[2019-02-05 08:26] VITALS: BMI 27.7
--- NOTE | 2019-03-05 06:56 | ECHOD_ITS ---
Reason For Study: AFIB Procedure This was a 2D Doppler, Color Flow transthoracic echocardiogram. Poor parasternal window. Exam performed in department. Left Ventricle Normal LV size. Left ventricular systolic function is normal. The estimated ejection fraction is 60 %. Stage 1 diastolic dysfunction. No regional wall motion abnormalities noted. Right Ventricle Normal RV size. Normal systolic function. Atria Normal left atrium. Normal right atrium. Mitral Valve Normal mitral valve. Trivial eccentric mitral valve insufficiency. Tricuspid Valve Normal tricuspid valve. Aortic Valve Normal aortic valve. Trisinus/trileaflet aortic valve. Pulmonic Valve Normal pulmonic valve. Great Vessels Normal aortic root. The pulmonary artery is normal size. Normal inferior vena cava. Pericardium/Pleural No pericardial effusion. MMode/2D Measurements & Calculations LVIDd: 4.1 cm IVSd: 1.1 cm Ao root diam: 3.7 cm LVIDs: 2.8 cm LVPWd: 1.1 cm RVDd: 4.0 cm FS: 32.7 % LAV(MOD-bp): 51.7 ml LVAd ap4: 34.6 cm2 SV(MOD-sp4): 79.9 ml LAV(MOD-bp) Indexed: 25.8 ml/m2 EDV(MOD-sp4): 108.9 ml LAV(MOD-sp2): 63.1 ml EDV(sp4-el): 111.8 ml LAV(MOD-sp4): 44.2 ml LVAs ap4: 14.3 cm2 ESV(MOD-sp4): 29.0 ml ESV(sp4-el): 29.8 ml EF(MOD-sp4): 73.4 % EF(sp4-el): 73.4 % SV(sp4-el): 82.0 ml LA A4 area: 16.7 cm2 LA dimension(2D): 3.5 cm RA A4 area: 14.5 cm2 Time Measurements MV dec time: 0.22 sec Doppler Measurements & Calculations MV E max steven: 75.2 cm/sec Lat Peak E' Steven: 7.2 cm/sec Med Peak E' Steven: 7.0 cm/sec MV A max steven: 99.0 cm/sec E/E' lat: 10.4 E/E' med: 10.8 MV E/A: 0.76 Ao V2 max: 183.1 cm/sec LV V1 max: 120.1 cm/sec PA V2 max: 120.2 cm/sec Ao max P.4 mmHg LV V1 max P.8 mmHg TR max steven: 213.6 cm/sec TR max P.3 mmHg Interpretation Summary Normal LV size. Left ventricular systolic function is normal. The estimated ejection fraction is 60 %. Stage 1 diastolic dysfunction. Structurally normal valves. Ordering Physician: Oneil Obrien Referring Physician: NATHALIE GEIGER Performed By: Casie Warner RDCS, RVT
--- NOTE | 2019-03-05 18:06 | STRESSREP ---
Stress Test Report Pharmacologic myocardial perfusion stress test. 79-year-old man with a history of palpitations, hyperlipidemia, hypertension. Stress protocol: Resting EKG demonstrates sinus rhythm with a rate of 60 bpm. Normal intervals are noted resting blood pressures 152/84 mmHg. 0.4 mg of regadenoson was infused per usual protocol followed by rapid intravenous and flush injection continuous EKG monitoring was performed. The maximum heart rate attained was 100 bpm which was 71% of maximum predicted heart rate the maximum workload was 1 metabolic equivalent. At rest there were no ST or T wave changes noted suggest ischemia at peak infusion nonspecific ST-T wave changes were noted with no meet the criteria for ischemia. The resting blood pressures 152/84 with a final blood pressure 160/84 mmHg. Myocardial perfusion protocol. 11.0 mCi of segment sestamibi was injected at rest. 0.4 mg of adenosine was infused per usual protocol peak infusion 33.0 mCi of technetium 99m sestamibi was injected stress images were obtained stress and rest images were reconstructed in comparing the short axis vertical and horizontal long axis. Gated images were also obtained Perfusion SPECT analysis: Review of the stress images demonstrate normal uptake of tracer noted in all rest myocardium the rest images similar demonstrate normal uptake of tracer noted in all rest myocardium. No areas of reversibility are noted suggest ischemia. Next Gated SPECT analysis: The gated ejection fraction is noted to be 67%. Conclusion: Normal pharmacologic myocardial perfusion stress test. Preserved ejection fraction.
== END | disposition home or self-care (01) ==
LOC: CVS 06:50
PROVIDERS: Family Provider Family Medicine; PCP Family Medicine; Referring Provider Internal Medicine Cardiovascular Disease; Visit Provider Internal Medicine Cardiovascular Disease
DX: I48.91 Unspecified atrial fibrillation (principal); I25.10 Atherosclerotic heart disease of native coronary artery without angina pectoris; R00.2 Palpitations; C34.90 Malignant neoplasm of unspecified part of unspecified bronchus or lung; E78.5 Hyperlipidemia, unspecified; F17.200 Nicotine dependence, unspecified, uncomplicated; I10 Essential (primary) hypertension; I63.9 Cerebral infarction, unspecified
CPT/HCPCS: 78452; 93017; 93306; A9500; A4216; J2785

== ENCOUNTER → 2019-03-14 | Outpatient (CLI) | payer MEDICARE, BC, SELFPAY ==
[2019-02-05 08:26] VITALS: BMI 27.7
[2019-03-14 09:45] LABS: Hematocrit 49.8 % (40-54); Hemoglobin 16.4 g/dL (13.0-16.5); Mean Corp Hgb Conc 32.9 g/dL (32-36); Mean Corpuscular Hgb 29.6 pg (27.0-32.0); Mean Corpuscular Volume 89.9 fL (80-94); Mean Platelet Vol. 11.6 fl (6.2-12.0); Platelet Count 212 K/mm3 (150-450); RBC Distribution Width CV 16.4 % (11.6-14.6); RBC Distribution Width SD 54.4 fl (35.1-43.9); Red Blood Count 5.54 M/mm3 (4.6-6.2); White Blood Count 10.3 K/mm3 (4.4-11.0)
[2019-03-14 10:02] LABS: Color, Urine Yellow (Yellow); Glucose, Dipstick Normal (Normal); Ketone-Dipstick Negative (Negative); Leukocyte Esterase-Dipstick 25 /ul (Negative); Nitrite-Dipstick Negative (Negative); Occult Blood-Urine Negative /ul (Negative); Protein-Dipstick 100 mg/dl (Negative); Specific Gravity, Urine 1.015 (1.002-1.030); Urine Bilirubin Dipstick Negative (Negative); Urine Clarity Sl. Cloudy (Clear); Urine Urobilinogen Normal (Normal)
[2019-03-14 10:07] LABS: Albumin, Serum 3.1 g/dL (3.2-5.0); BUN 20 mg/dL (7-18); BUN/Creat Ratio 16.4 RATIO (10-20); Calcium,Total 9.3 mg/dL (8.5-10.1); Chloride 109 mmol/L (98-107); Creatinine, Serum 1.22 mg/dL (0.70-1.30); EST Glomerular Filtration Rate 61 mL/min (>60); Est Glom Filt Rate - Afr Amer 74 mL/min (>60); Glucose 112 mg/dL (74-106); Phosphorus 2.7 mg/dL (2.5-4.9); Potassium 3.9 mmol/L (3.5-5.1); Sodium Level 145 mmol/L (136-145)
[2019-03-14 10:14] LABS: PTHIN 74.2 pg/mL (18.4-80.1)
[2019-03-14 10:46] LABS: Protein, Urine (Random) 289.5 mg/dL (<11.9); Protein:Creat Ratio 2910 mg/g CRE (0-200)
== END | disposition home or self-care (01) ==
PROVIDERS: Family Provider Family Medicine; PCP Family Medicine; Referring Provider Internal Medicine Nephrology; Visit Provider Internal Medicine Nephrology
DX: I12.9 Hypertensive chronic kidney disease with stage 1 through stage 4 chronic kidney disease, or unspecified chronic kidney disease (principal); N18.2 Chronic kidney disease, stage 2 (mild)
CPT/HCPCS: 36415; 80069; 81002; 82043; 82306; 82570; 83970; 84156; 85027

== ENCOUNTER 2019-04-05 10:35 | Emergency (ER) | payer MEDICARE, BC, SELFPAY ==
[2019-02-05 08:26] VITALS: BMI 27.7
[2019-04-05 10:36] VITALS: BP 167/83; PULSE 100; RESP 18; TEMP 36.7; O2SAT 98; BMI 29.2
--- NOTE | 2019-04-05 10:52 | CT_ITS ---
STUDY: CT ABDOMEN AND PELVIS WITH CONTRAST REASON FOR EXAM: Male, 79 years old. Upper abdominal pain, cramping and blood in stool. RADIATION DOSAGE (If Supplied By Facility): CTDIvol = ( 16.51 ) mGy, DLP = ( 1030.27 ) mGycm TECHNIQUE: Transaxial images were obtained from the dome of the diaphragm to the symphysis pubis without oral contrast. IV Isovue 300 100 was administered. Sagittal and coronal images were reconstructed. Individualized dose optimization techniques were used for this CT. COMPARISON: 07/22/2018. FINDINGS: The visualized lung bases are unremarkable. The visualized portions of the heart are within normal limits. Normal liver. Normal gallbladder and extrahepatic biliary system. Normal spleen. Normal pancreas. Normal bilateral adrenal glands. There are small bilateral renal cysts. There is mild prominence of the left renal pelvis but markedly less than previous examination which could be partially due to extrarenal pelvis. The ureters are not dilated. Normal visualized stomach. Normal small intestine. There is fecal retention. The appendix is visualized and appears normal. There is diffuse atherosclerotic calcification of the abdominal aorta, without a demonstrated aneurysm. Normal inferior vena cava. Normal retroperitoneum. Normal urinary bladder. There is a defect in the bladder base likely due to previous prostatectomy. There are prostatic calcifications. Prostate is slightly prominent. There are small bilateral inguinal hernias containing fat larger on the left side. There are diffuse degenerative changes of the visualized lumbar spine. CT/Abdomen/Pelvis W IV Cont ONLY IMPRESSION: 1. Mildly dilated left renal pelvis but markedly improved since previous exam. 2. No demonstrated acute process. Electronically Signed: Douglas Fritz MD at 12:10 EST Tel , Service support ,
[2019-04-05 11:14] LABS: Absolute Lymphocyte Count 2.03 X10^3/uL (0.83-4.51); Absolute Neutrophil Count 5.6 X10^3/uL (2.0-7.7); Basophil# 0.07 X10^3/uL; Basophil% 0.8 % (0-1); Eosinophil# 0.16 X10^3/uL; Eosinophils% 1.8 % (0-5); Hematocrit 47.7 % (40-54); Lymphocyte # 2.03 X10^3/ul (4.0); Lymphocyte % 23.3 % (19-41); Mean Corp Hgb Conc 33.5 g/dL (32-36); Mean Corpuscular Hgb 29.9 pg (27.0-32.0); Mean Corpuscular Volume 89.2 fL (80-94); Mean Platelet Vol. 11.3 fl (6.2-12.0); Monocyte# 0.78 X10^3/uL; NRBC Flagged by Analyzer 0 % (0-5); Neutrophil # 5.64 X10^3/uL (2.7-7.7); Neutrophil % 64.9 % (47-70); Platelet Count 197 K/mm3 (150-450); RBC Distribution Width CV 16.1 % (11.6-14.6); RBC Distribution Width SD 52.7 fl (35.1-43.9); Red Blood Count 5.35 M/mm3 (4.6-6.2); White Blood Count 8.7 K/mm3 (4.4-11.0)
[2019-04-05 11:20] LABS: International Normalized Ratio 1.2; Prothrombin Time (Protime)PT. 14.7 SECONDS (11.7-14.9)
[2019-04-05 11:21] LABS: Partial Thromboplast Time 34.5 Seconds (24.1-36.2)
[2019-04-05 11:35] LABS: ALB/GLOB Ratio 0.9 RATIO (0.9-2.4); AST(SGOT) 24 U/L (15-37); Alanine Aminotransfer ALT/SGPT 26 U/L (16-61); Albumin, Serum 3.1 g/dL (3.2-5.0); Alkaline Phosphatase 137 U/L (45-117); Anion Gap 7 (5-15); BUN 23 mg/dL (7-18); BUN/Creat Ratio 18.9 RATIO (10-20); Calcium,Total 9.3 mg/dL (8.5-10.1); Chloride 112 mmol/L (98-107); Creatinine, Serum 1.22 mg/dL (0.70-1.30); EST Glomerular Filtration Rate 61 mL/min (>60); Est Glom Filt Rate - Afr Amer 74 mL/min (>60); Estimated Creatinine Clearance 48.29 ml/min; Globulin 3.4 g/dL (2.2-4.2); Glucose 156 mg/dL (74-106); Lipase 279 U/L (73-393); Potassium 3.7 mmol/L (3.5-5.1); Protein, Total 6.5 g/dL (6.4-8.2); Sodium Level 145 mmol/L (136-145)
--- NOTE | 2019-04-05 13:23 | ED.DCSUM_ITS ---
- ER Visit Summary Date of Service: 04/05/19 Chief Complaint: GI bleeding History of Present Illness: The patient is a 79 M with GI bleeding for yesterday and today. These were associated with bowel movements. They were not particularly hard, but occasionally he does have hard stools. The blood was bright red and in the form of drops after the bowel movement yesterday and today. No other bleeding. No dark or black stools. He had this in the past and it was attributed to an anal fissure. He had a colonoscopy over 10 years ago which was unremarkable. He does take apixaban for A. fib. He has upper abdominal pain but no other GI symptoms. No other bleeding. Physical Examination: Afebrile and vital signs unremarkable. Mild tenderness to the upper hemiabdomen, but no guarding or rebound. Rectal exam shows external hemorrhoids with a fissure at 3 o clock. There is some dried blood, but no active bleeding. Skin is otherwise unremarkable. Exam is otherwise unremarkable. Test Results: CBC normal. CMP, lipase, coags unremarkable. Type and screen was performed. CT of his abdomen showed a mildly dilated left renal pelvis which is improved from previously. No acute issues. Emergency Department Course and Treatment: Patient remained stable in the emergency department. He has bright red blood after bowel movements only. No black stools or other symptoms to suggest upper GI bleeding. He did have some upper abdominal pain and the scan was unremarkable. His labs and vitals are stable. He was discussed with Dr. Felton. She will follow-up with him, but there is no indication for admission at this point. If he has worsening bleeding, he should return. If he has worsening pain or other new symptoms he should return. He was treated with omeprazole and topical medicine for his hemorrhoids and fissure. Follow-up with surgery or return if worse. Treatment Plan: As above Disposition: Discharge Impression: 1. Upper abdominal pain 2. Anal fissure This note was generated with [employer] dictation software. It may contain incorrect words, spelling, and punctuation that were not noted in review of the chart prior to signing ED Disposition - Plan for ED Patient: Referrals: Kevon Harrell MD [Primary Care Provider] -
--- NOTE | 2019-04-05 13:28 | ED.DEP ---
ED Disposition - Plan for ED Patient: Instructions: Hemorrhoids Prescriptions: Omeprazole 20 mg PO BID #60 tab.rap.dr Prescription Printed Phenylephrine HCl/Witch Dafne [Preparation H Cooling Gel] 1 applicatio TP Q6H PRN PRN #1 tube PRN Reason: Rectal Discomfort Prescription Printed Referrals: Mayuri Felton MD [STAFF PHYSICIAN] -
[2019-04-05 13:44] VITALS: BP 142/91; PULSE 60; RESP 16; O2SAT 99
[2019-04-05 13:51] VITALS: BP 142/91; PULSE 60; RESP 16; O2SAT 99
== END 2019-04-05 13:52 | disposition home or self-care (01) ==
PROVIDERS: Emergency Provider Emergency Medicine; Family Provider Family Medicine; PCP Family Medicine
DX: K60.2 Anal fissure, unspecified (principal); R10.10 Upper abdominal pain, unspecified; I10 Essential (primary) hypertension; E78.00 Pure hypercholesterolemia, unspecified; I48.91 Unspecified atrial fibrillation; Z85.118 Personal history of other malignant neoplasm of bronchus and lung; Z85.828 Personal history of other malignant neoplasm of skin; Z86.73 Personal history of transient ischemic attack (TIA), and cerebral infarction without residual deficits; Z72.0 Tobacco use; Z79.899 Other long term (current) drug therapy; Z79.82 Long term (current) use of aspirin
CPT/HCPCS: 74177; 80053; 83690; 85025; 85610; 85730; 86850; 86900; 86901; 99284; Q9967; A4216

== ENCOUNTER → 2019-04-14 12:48 | Outpatient (CLI) | payer MEDICARE, BC, SELFPAY ==
[2019-04-05 10:36] VITALS: BMI 29.2
--- NOTE | 2019-04-14 12:49 | US_ITS ---
STUDY: RENAL ULTRASOUND - COMPLETE REASON FOR EXAM: Male, 79 years old. Chronic kidney disease TECHNIQUE: Ultrasound evaluation of the kidneys was performed with real-time and static lee-scale imaging. COMPARISON: CT of abdomen and pelvis dated April 05, 2019. FINDINGS: RIGHT KIDNEY: Normal location of the right kidney, which is normal in size. The right kidney measures 12.4 x 4.2 x 6.2 cm. There is a normal cortex of the right kidney. The renal cortex measures 1.6 cm. There is no right renal mass. Several tiny simple cyst is present measuring less than a centimeter. There are no right renal calculi. There is no right hydronephrosis. DISTAL RIGHT URETER: There is non-visualization of the distal right ureter. There is no demonstrated right ureterovesical junction calculus. There is a visualized right ureteral jet. LEFT KIDNEY: Normal location of the left kidney, which is normal in size. The left kidney measures 12.4 x 4.8 x 5.3 cm. There is a normal cortex of the left kidney. The renal cortex measures 1.3 cm. There is no left renal mass. Multiple tiny cysts are scattered throughout the left kidney with simple/benign features. The largest cyst is 1.8 cm. Mild left hydronephrosis is present. There are no left renal calculi. DISTAL LEFT URETER: There is non-visualization of the distal left ureter. There is no demonstrated left ureterovesical junction calculus. There is a visualized left ureteral jet. BLADDER: The distended urinary bladder has a volume of 290 ml. There is a normal wall thickness of the distended urinary bladder. There is no demonstrated mass within the urinary bladder. There are no demonstrated bladder calculi. US/Kidney and Bladder IMPRESSION: 1. Mild left hydronephrosis/pelviectasis which was present on the recent CT of abdomen and pelvis 2. Multiple small cysts of both kidneys. Electronically Signed: Maxwell Clement MD at 14:11 EST , Service support ,
== END ==
PROVIDERS: Family Provider Family Medicine; PCP Family Medicine; Referring Provider Internal Medicine; Visit Provider Internal Medicine
DX: N18.2 Chronic kidney disease, stage 2 (mild) (principal)
CPT/HCPCS: 76770

== ENCOUNTER → 2019-06-03 10:55 | Outpatient (CLI) | payer MEDICARE, BC, SELFPAY ==
[2019-06-03 07:43] VITALS: BMI 29.0
== END ==
PROVIDERS: PCP Family Medicine; Referring Provider Nurse Practitioner Family; Visit Provider Nurse Practitioner Family
DX: R06.09 Other forms of dyspnea (principal)
CPT/HCPCS: 36415; 83880

== ENCOUNTER 2019-06-08 23:38 | Emergency (ER) | payer MEDICARE, BC, SELFPAY ==
[2019-06-03 07:43] VITALS: BMI 29.0
[2019-06-08 23:39] VITALS: BP 175/93; PULSE 69; RESP 19; TEMP 36.5; O2SAT 96; BMI 29.5
--- NOTE | 2019-06-09 | RAD_ITS ---
STUDY: X-RAY CHEST REASON FOR EXAM: Male, 79 years old. c/o coughing up blood a couple times tonight, chronic sob and cough -- hx of copd, dx with lung ca, in remission for last 4 yrs TECHNIQUE: PA and lateral views of the chest. COMPARISON: None. FINDINGS: There is hyperinflation of the lungs consistent with chronic obstructive lung disease (COPD). There is a small nodularity seen in the right lung apex measuring 1.3 cm superimposed over the anterior arch of a right upper rib which could represent a small nodule versus superimposition artifact. This is stable since 06/26/2018 and 01/07/2019. There is no demonstrated pleural abnormality. Normal size heart. Normal mediastinum and hailey. Normal visualized pulmonary arteries. There is atherosclerotic calcification of the aortic arch with tortuosity. Normal visualized thoracic spine. Normal visualized ribs, clavicles, and shoulders. There is no demonstrated abnormality of the visualized soft tissue structures of the upper abdomen. RAD/Chest PA and Lateral IMPRESSION: Findings suggestive of COPD. Otherwise no acute cardiopulmonary process seen. Stable right upper lobe nodule, follow-up with chest x-ray in 6 months recommended to document stability for a total period of 2 years (initial observation 06/26/2018) Electronically Signed: Margaret Ma MD at 0:48 EST , Service support ,
--- NOTE | 2019-06-09 | EKG12_ITS ---
Test Reason : SOB Blood Pressure : / mmHG Vent. Rate : 059 BPM Atrial Rate : 059 BPM P-R Int : 174 ms QRS Dur : 080 ms QT Int : 398 ms P-R-T Axes : 054 025 046 degrees QTc Int : 394 ms Sinus bradycardia Otherwise normal ECG Confirmed by LEONIDES CALDERA, FLORES ([id number]), food expeditor MINE MARQUES ([id number]) on 06/11/2019 1:39:35 PM Referred By: JAYE Confirmed By:FLORES COYLE MD
--- NOTE | 2019-06-09 00:01 | ED.DCSUM_ITS ---
History of Present Illness Chief Complaint: Shortness of Breath Informant: Patient Narrative: Patient stated he came in tonight because he had a cough. On 2 occasions he coughed up some sputum with a small amount of blood. He stated that the bleeding would of covered half of a Q-tip each time. This is not a large amount per patient. He is on Eliquis. He had a right upper lung biopsy that showed scar tissue only 3 weeks ago. He restarted the blood thinner a day after the biopsy. He had a small incidental pneumothorax after the biopsy which was monitored via chest x-ray. Patient stated he has had chronic dyspnea due to COPD. He stated it is at his baseline. He stated maybe for the last week it has been slightly worsened. His cough is at baseline which is chronic. Denies any fevers or chills or flulike symptoms. He stated he does get COPD exacerbations a couple times per year. His right upper lung cancer is in remission. He received radiation therapy several years ago when this was diagnosed stage I. Again he stated his biopsy was negative just recently. He is on Eliquis at this time. History of remote atrial fibrillation. Denies any chest pain. No history of heart attack in the past. Current severity is mild. No home treatment. - Past Medical History (1) CVA (cerebral vascular accident) Status: Chronic (2) Essential (primary) hypertension Status: Chronic (3) HLD (hyperlipidemia) Status: Chronic (4) Lung cancer Status: Chronic (5) Nicotine dependence Status: Chronic (6) Palpitations Status: Chronic (7) Paroxysmal atrial fibrillation Status: Chronic Past Medical History - Allergies and Home Meds Allergies/Adverse Reactions: Allergies BEE STINGS Allergy (Severe, Uncoded 06/08/19 23:39) Anaphylaxis Primary Care Physician: Kevon Harrell MD [Primary Care Provider] - Prior records reviewed: Yes Past Medical History: - - See problem list, COPD Surgical History: - - R hydrocele surgery, several basal cell CA skin removal, removal of cyst right knee. Lives: With Family Smoking Status: Current every day smoker Alcohol: None Drugs: None - Family History Maternal Family History: Family History (Last Reviewed 02/05/19 @ 11:30 by Oneil Obrien MD) Father Heart disease Hypertension CVA (cerebral vascular accident) Grandmother Cancer Grandfather CVA (cerebral vascular accident) Family History: Reports: COPD Paternal Family History: Family History (Last Reviewed 02/05/19 @ 11:30 by Oneil Obrien MD) Father Heart disease Hypertension CVA (cerebral vascular accident) Grandmother Cancer Grandfather CVA (cerebral vascular accident) Family History: Reports: Heart Disease, Hypertension, Stroke Review of Systems General: Denies: Chills, Fever, Sweats Eyes: Denies: Visual changes - bilaterally, Diplopia ENT: Denies: Rhinorrhea, Sore throat Cardiovascular: Denies: Chest pain, Palpitations Respiratory: Reports: Dyspnea - Chronic with mild increase, Cough - Chronic at baseline. Denies: Dyspnea on exertion Gastrointestinal: Denies: Abdominal pain, Nausea, Vomiting, Diarrhea, Melena, Hematochezia Genitourinary: Denies: Dysuria, Hematuria, Frequency Musculoskeletal: Denies: Back pain, Extremity Pain Skin: Denies: Rash, Wounds Neurological: Denies: Headache, Weakness, Numbness Physical Exam Vital Signs/Narrative: Vital Signs Temp Pulse Resp BP Pulse Ox 06/08/19 23:39 97.7 F L 69 19 H 175/93 H 96 General: Well nourished, Well developed, No Acute Distress Head: Normocephalic, Atraumatic Eyes: Perrl, EOMI ENT: Moist mucous membranes, No rhinorrhea Neck: Supple, Nontender Cardiovascular: Regular rate, Regular rhythm, No murmurs Respiratory: No distress, Chest nontender, Wheezing - Mild end expiratory diffuse wheezing . Negative for: CTA bilaterally, Rales, Rhonchi, Decreased Air Movement, Retractions, Chest tenderness Abdomen: Soft, Nontender, Nondistended, Normal bowel sounds Back: Nontender, Normal Inspection Extremities: Nontender, No edema Skin: Normal color, No rash Neurological: Alert, Oriented x3, Cranial nerves II-XII grossly intact, Normal Strength, Normal Sensation Psychological: Normal affect, Normal Mood Diagnostic/Tx/Re-eval Impressions Chest X-Ray 06/09/19 00:00 IMPRESSION: Findings suggestive of COPD. Otherwise no acute cardiopulmonary process seen. Stable right upper lobe nodule, follow-up with chest x-ray in 6 months recommended to document stability for a total period of 2 years (initial observation 06/26/2018) Electronically Signed: Margaret Ma MD at 0:48 EST , Service support , 06/09/19 00:00 Chest PA and Lateral [RAD] Stat Laboratory Results 06/09/19 06/09/19 00:09 00:09 WBC 10.7 RBC 4.47 L Hgb 12.0 L Hct 38.2 L MCV 85.5 MCH 26.8 L MCHC 31.4 L RDW Std Deviation 46.3 H RDW Coeff of Gayle 14.9 H Plt Count 243 MPV 11.1 Immature Gran % (Auto) 0.400 Neut % (Auto) 50.9 Lymph % (Auto) 34.3 Howard % (Auto) 10.6 H Eos % (Auto) 2.9 Baso % (Auto) 0.9 Absolute Neuts (auto) 5.4 Absolute Lymphs (auto) 3.65 Nucleated RBC % 0 Sodium 145 Potassium 3.7 Chloride 115 H Carbon Dioxide 26.0 Anion Gap 4 L BUN 27 H Creatinine 1.25 Estim Creat Clear Calc 47.13 Est GFR (MDRD) Af Amer 71 Est GFR (MDRD) Non-Af 59 L BUN/Creatinine Ratio 21.6 H Glucose 88 Calcium 9.3 Troponin I < 0.015 - Medical Decision Making Patient given DuoNeb breathing treatment lab work EKG chest x-ray obtained. EKG shows sinus bradycardia at 59 with no ischemia. Chest x-ray shows chronic changes. Nodule noted that shows no change from before. I do not appreciate a pneumothorax. No infiltrate. Patient felt better after breathing treatments. He may have a subtle COPD exacerbation. Will be given azithromycin. I do not appreciate significant meta bleeding. Hemoglobin is 12. I do not feel the patient needs coagulation studies. I will have him continue his Eliquis as this is a trivial amount of bleeding. We will follow-up as an outpatient. Troponin negative. I do not think he has a pulmonary embolism ED Disposition - Plan for ED Patient: Disposition: Home or Assisted Living Diagnosis: COPD exacerbation Instructions: Copd Flare Prescriptions: Azithromycin 250 mg PO DAILY #4 tab Prescription Printed Referrals: Kevon Harrell MD [Primary Care Provider] -
[2019-06-09 00:04] VITALS: BP 175/93; PULSE 69; RESP 19; TEMP 36.5; O2SAT 96
[2019-06-09] MEDS: Ipratropium/Albuterol Sulfate 3 ML AMPUL.NEB INHALATION (00:12)
[2019-06-09 00:13] VITALS: PULSE 68; RESP 16
[2019-06-09 00:17] LABS: Absolute Lymphocyte Count 3.65 X10^3/uL (0.83-4.51); Absolute Neutrophil Count 5.4 X10^3/uL (2.0-7.7); Basophil% 0.9 % (0-1); Eosinophil# 0.31 X10^3/uL; Eosinophils% 2.9 % (0-5); Hematocrit 38.2 % (40-54); Lymphocyte # 3.65 X10^3/ul (4.0); Lymphocyte % 34.3 % (19-41); Mean Corp Hgb Conc 31.4 g/dL (32-36); Mean Corpuscular Hgb 26.8 pg (27.0-32.0); Mean Corpuscular Volume 85.5 fL (80-94); Mean Platelet Vol. 11.1 fl (6.2-12.0); Monocyte# 1.13 X10^3/uL; Monocyte% 10.6 % (0-10); NRBC Flagged by Analyzer 0 % (0-5); Neutrophil # 5.42 X10^3/uL (2.7-7.7); Neutrophil % 50.9 % (47-70); Platelet Count 243 K/mm3 (150-450); RBC Distribution Width CV 14.9 % (11.6-14.6); RBC Distribution Width SD 46.3 fl (35.1-43.9); Red Blood Count 4.47 M/mm3 (4.6-6.2); White Blood Count 10.7 K/mm3 (4.4-11.0)
[2019-06-09 00:31] LABS: Anion Gap 4 (5-15); BUN 27 mg/dL (7-18); BUN/Creat Ratio 21.6 RATIO (10-20); Calcium,Total 9.3 mg/dL (8.5-10.1); Chloride 115 mmol/L (98-107); Creatinine, Serum 1.25 mg/dL (0.70-1.30); EST Glomerular Filtration Rate 59 mL/min (>60); Est Glom Filt Rate - Afr Amer 71 mL/min (>60); Estimated Creatinine Clearance 47.13 ml/min; Glucose 88 mg/dL (74-106); Potassium 3.7 mmol/L (3.5-5.1); Sodium Level 145 mmol/L (136-145)
[2019-06-09 01:12] VITALS: BP 128/68; PULSE 62; RESP 12; O2SAT 97
[2019-06-09] MEDS: Azithromycin 250 MG Tablet 500 MG PO (01:12)
== END 2019-06-09 01:17 | disposition home or self-care (01) ==
PROVIDERS: Emergency Provider Emergency Medicine; PCP Family Medicine
DX: J44.1 Chronic obstructive pulmonary disease with (acute) exacerbation (principal); R91.1 Solitary pulmonary nodule; I10 Essential (primary) hypertension; E78.5 Hyperlipidemia, unspecified; I48.0 Paroxysmal atrial fibrillation; Z86.73 Personal history of transient ischemic attack (TIA), and cerebral infarction without residual deficits; Z85.118 Personal history of other malignant neoplasm of bronchus and lung; Z85.828 Personal history of other malignant neoplasm of skin; Z79.01 Long term (current) use of anticoagulants; Z79.82 Long term (current) use of aspirin; Z79.899 Other long term (current) drug therapy; F17.200 Nicotine dependence, unspecified, uncomplicated
CPT/HCPCS: 71046; 80048; 84484; 85025; 93005; 94640; 99285; A4216

== ENCOUNTER 2019-06-19 23:34 | Emergency (ER) | payer MEDICARE, BC, SELFPAY ==
[2019-06-19 23:35] VITALS: BP 165/73; PULSE 64; RESP 18; TEMP 36.6; O2SAT 97; BMI 29.3
[2019-06-19 23:41] VITALS: O2SAT 98
--- NOTE | 2019-06-20 00:05 | EKG12_ITS ---
Test Reason : SOB Blood Pressure : / mmHG Vent. Rate : 063 BPM Atrial Rate : 063 BPM P-R Int : 170 ms QRS Dur : 084 ms QT Int : 398 ms P-R-T Axes : 053 037 049 degrees QTc Int : 407 ms Normal sinus rhythm Normal ECG Confirmed by TODD CALDERA, ROCÍO ([id number]), editor trade journal JACEY HYMAN ([id number] on 06/23/2019 10:14:08 AM Referred By: Kevon Harrell Confirmed By:LEONIE BROOKS MD
--- NOTE | 2019-06-20 00:05 | RAD_ITS ---
STUDY: X-RAY CHEST REASON FOR EXAM: Male, 79 years old. CHRONIC SOB -- HX OF COPD -- STILL A SMOKER TECHNIQUE: Single AP portable view of the chest. COMPARISON: 11/12/2017 FINDINGS: There is hyperinflation of the lungs consistent with chronic obstructive lung disease (COPD). There is a nodule in the right lung upper lobe measures 1.3 cm has nonspecific appearance and appears more prominent when compared to study from 11/12/2017. There is no demonstrated pleural abnormality. Normal size heart. Normal mediastinum and hailey. Normal visualized pulmonary arteries. Normal visualized aortic arch and descending thoracic aorta. Normal visualized thoracic spine. Normal visualized ribs, clavicles, and shoulders. There is no demonstrated abnormality of the visualized soft tissue structures of the upper abdomen. RAD/Chest PA and Lateral IMPRESSION: There is a nodule in the right lung upper lobe measures 1.3 cm has nonspecific appearance and appears more prominent when compared to study from 11/12/2017. Electronically Signed: Elzbieta Mcdermott, at 1:58 EST Tel , Service support ,
[2019-06-20] MEDS: Ipratropium/Albuterol Sulfate 3 ML AMPUL.NEB INHALATION (00:20)
[2019-06-20 00:21] VITALS: PULSE 62; RESP 18
[2019-06-20 00:29] LABS: Absolute Lymphocyte Count 3.59 X10^3/uL (0.83-4.51); Absolute Neutrophil Count 5.8 X10^3/uL (2.0-7.7); Basophil# 0.11 X10^3/uL; Eosinophil# 0.32 X10^3/uL; Eosinophils% 2.9 % (0-5); Hematocrit 37.8 % (40-54); Hemoglobin 12.1 g/dL (13.0-16.5); Lymphocyte # 3.59 X10^3/ul (4.0); Lymphocyte % 32.9 % (19-41); Mean Corpuscular Hgb 26.9 pg (27.0-32.0); Mean Platelet Vol. 9.6 fl (6.2-12.0); Monocyte# 1.05 X10^3/uL; Monocyte% 9.6 % (0-10); NRBC Flagged by Analyzer 0 % (0-5); Neutrophil % 53.3 % (47-70); Platelet Count 237 K/mm3 (150-450); RBC Distribution Width CV 15.4 % (11.6-14.6); RBC Distribution Width SD 46.6 fl (35.1-43.9); White Blood Count 10.9 K/mm3 (4.4-11.0)
[2019-06-20] MEDS: MethylPREDNISolone 125 MG/2 ML Vial IV (00:38)
[2019-06-20 00:53] LABS: Anion Gap 2 (5-15); BUN 19 mg/dL (7-18); Calcium,Total 9.2 mg/dL (8.5-10.1); Chloride 116 mmol/L (98-107); Creatinine, Serum 1.27 mg/dL (0.70-1.30); EST Glomerular Filtration Rate 58 mL/min (>60); Est Glom Filt Rate - Afr Amer 70 mL/min (>60); Estimated Creatinine Clearance 46.39 ml/min; Glucose 136 mg/dL (74-106); Potassium 3.6 mmol/L (3.5-5.1); Sodium Level 145 mmol/L (136-145)
[2019-06-20 01:34] VITALS: BP 159/80; PULSE 60; RESP 9; O2SAT 95
[2019-06-20 02:11] VITALS: O2SAT 94
--- NOTE | 2019-06-20 02:11 | ED.VISSUMM ---
- ER Visit Summary Date of Service: 06/20/19 Chief Complaint: [Shortness of breath] History of Present Illness: The patient is a 79 M [presents the emergency department complaint of shortness of breath that got worse today. Patient states that ever since May 20 he has been increasingly short of breath. On May 20 he had a biopsy of a right upper lobe nodule that ended up being scar tissue. Patient also had at that time small pneumothorax that resolved on its own without intervention. Patient was seen in the emergency department about a week ago and started on a Z-Maikel for the same complaint. Patient thought that maybe he was getting little bit better but continues to complain of some intermittent exertional dyspnea and wheezing. He does have history of COPD, prior stroke, A. fib that is paroxysmal, hypertension, high cholesterol, and palpitations. Patient has history of lung cancer. Patient finished radiation in 2016 and is in remission.] Physical Examination: [HEENT-PERRLA, EOMI. Cranial nerves II through XII grossly intact. TMs clear. Mucous membranes moist. No adenopathy. Cardiovascular-regular rate and rhythm without murmur or ectopy Lungs-good aeration bilaterally. Patient has some faint expiratory wheezes. No accessory muscle use or retractions. No significant tachypnea. Abdomen-normoactive bowel sounds, soft, nontender, no rebound or rigidity, no peritoneal signs. Extremities-intact ?4, normal range of motion, normal pulses, atraumatic] Test Results: [EKG obtained arrival shows sinus rhythm with a ventricular rate of 63 bpm with no acute segment changes. CBC with differential, 10.9, hemoglobin 12, hematocrit 38, platelets 237. Chemistries unremarkable. Troponin is less than 0.015. Chest x-ray showed a right upper lobe nodule otherwise nothing acute.] Emergency Department Course and Treatment: [Patient was given a DuoNeb aerosol and given Solu-Medrol IV. Patient was ambulated in the department and his O2 sat never dropped below 91% and he felt well. I discussed case with patient's foundry tender Dr. Oneil Obrien who was comfortable with discontinuing the patient's Eliquis for the time being given that he does have small amount of hemoptysis.] Treatment Plan: [Follow-up with your bindery machine tender within next 3 to 5 days. Discontinue your Eliquis.] Patient will be treated with prednisone. Patient advised to return if increasing shortness of breath, heavy hemoptysis with clots, or condition should worsen anyway. Disposition: [Discharged home in stable condition] Impression: [COPD exacerbation Hemoptysis] This note was generated with [employer] dictation software. It may contain incorrect words, spelling, and punctuation that were not noted in review of the chart prior to signing ED Disposition - Plan for ED Patient: Referrals: Kevon Harrell MD [Primary Care Provider] -
--- NOTE | 2019-06-20 02:16 | ED.DEP ---
ED Disposition - Plan for ED Patient: Instructions: Copd Flare, Hemoptysis Prescriptions: Prednisone [Deltasone] 20 mg PO BID #10 tab Prescription Printed Referrals: Kevon Harrell MD [Primary Care Provider] - Additional Instructions: See your home health care physician in 3-4 days Stop the eliquis until your bloody sputum stops
[2019-06-20 02:39] VITALS: BP 155/88; PULSE 61; RESP 17; O2SAT 96
== END 2019-06-20 02:39 | disposition home or self-care (01) ==
LOC: ED 06-20 00:27
PROVIDERS: Emergency Provider Emergency Medicine; PCP Family Medicine; Referring Provider Family Medicine
DX: J44.1 Chronic obstructive pulmonary disease with (acute) exacerbation (principal); R04.2 Hemoptysis; Z86.73 Personal history of transient ischemic attack (TIA), and cerebral infarction without residual deficits; Z85.118 Personal history of other malignant neoplasm of bronchus and lung; Z92.3 Personal history of irradiation; Z72.0 Tobacco use
CPT/HCPCS: 71046; 80048; 84484; 85025; 93005; 94640; 96374; 99285; A4216

== ENCOUNTER → 2019-06-23 11:00 | Outpatient (CLI) | payer MEDICARE, BC, SELFPAY ==
[2019-06-19 23:35] VITALS: BMI 29.3
[2019-06-25 20:07] LABS: QNTFERON TB Mitogen Value > 10.00 IU/mL (.); QNTFERON TB Nil Value 0.01 IU/mL (.); QNTFERON TB1+ Ag Value 0.02 IU/mL (.); QNTFERON TB2+ Ag Value 0.02 IU/mL (.)
[2019-06-25 20:39] LABS: QNTIFERON TB Positive Criteria Negative (Negative)
== END ==
PROVIDERS: PCP Family Medicine; Referring Provider Family Medicine; Visit Provider Family Medicine
DX: R04.2 Hemoptysis (principal)
CPT/HCPCS: 36415; 86480

== ENCOUNTER → 2019-07-15 12:15 | Outpatient (CLI) | payer MEDICARE, BC, SELFPAY ==
[2019-06-19 23:35] VITALS: BMI 29.3
[2019-07-15 15:05] LABS: Absolute Lymphocyte Count 2.75 X10^3/uL (0.83-4.51); Absolute Neutrophil Count 5.6 X10^3/uL (2.0-7.7); Basophil% 1.1 % (0-1); Eosinophil# 0.18 X10^3/uL; Eosinophils% 1.9 % (0-5); Hematocrit 39.7 % (40-54); Hemoglobin 12.4 g/dL (13.0-16.5); Lymphocyte # 2.75 X10^3/ul (4.0); Lymphocyte % 28.9 % (19-41); Mean Corp Hgb Conc 31.2 g/dL (32-36); Mean Corpuscular Hgb 25.6 pg (27.0-32.0); Mean Corpuscular Volume 81.9 fL (80-94); Mean Platelet Vol. 11.4 fl (6.2-12.0); Monocyte# 0.83 X10^3/uL; Monocyte% 8.7 % (0-10); NRBC Flagged by Analyzer 0 % (0-5); Neutrophil # 5.63 X10^3/uL (2.7-7.7); Neutrophil % 59.1 % (47-70); Platelet Count 252 K/mm3 (150-450); RBC Distribution Width CV 16.9 % (11.6-14.6); RBC Distribution Width SD 50.1 fl (35.1-43.9); Red Blood Count 4.85 M/mm3 (4.6-6.2); White Blood Count 9.5 K/mm3 (4.4-11.0)
[2019-07-15 15:25] LABS: ALB/GLOB Ratio 1.1 RATIO (0.9-2.4); AST(SGOT) 21 U/L (15-37); Alanine Aminotransfer ALT/SGPT 28 U/L (16-61); Albumin, Serum 3.2 g/dL (3.2-5.0); Alkaline Phosphatase 129 U/L (45-117); Anion Gap 3 (5-15); BUN 23 mg/dL (7-18); BUN/Creat Ratio 18.9 RATIO (10-20); Calcium,Total 9.1 mg/dL (8.5-10.1); Chloride 113 mmol/L (98-107); Cholesterol 137 mg/dL (200); Creatinine, Serum 1.22 mg/dL (0.70-1.30); EST Glomerular Filtration Rate 61 mL/min (>60); Est Glom Filt Rate - Afr Amer 73 mL/min (>60); Globulin 2.8 g/dL (2.2-4.2); Glucose 124 mg/dL (74-106); High Density Lipoprotein 67 mg/dL; Potassium 3.9 mmol/L (3.5-5.1); Sodium Level 144 mmol/L (136-145)
[2019-07-15 15:35] LABS: Hemoglobin A1c 6.9 % (4.2-6.3)
== END ==
PROVIDERS: PCP Family Medicine; Referring Provider Family Medicine; Visit Provider Family Medicine
DX: J44.9 Chronic obstructive pulmonary disease, unspecified (principal); E11.29 Type 2 diabetes mellitus with other diabetic kidney complication
CPT/HCPCS: 36415; 80053; 82465; 83036; 83718; 85025

== ENCOUNTER → 2019-07-22 10:49 | Outpatient (CLI) | payer MEDICARE, BC, SELFPAY ==
[2019-07-22 11:44] LABS: Color, Urine Yellow (Yellow); Glucose, Dipstick Normal (Normal); Ketone-Dipstick 5 mg/dl (Negative); Leukocyte Esterase-Dipstick 25 /ul (Negative); Nitrite-Dipstick Negative (Negative); Occult Blood-Urine 10 /ul (Negative); Protein-Dipstick 100 mg/dl (Negative); Urine Bilirubin Dipstick Negative (Negative); Urine Clarity Clear (Clear); Urine Urobilinogen Normal (Normal)
[2019-07-22 11:54] LABS: Protein, Urine (Random) 249.2 mg/dL (<11.9); Protein:Creat Ratio 1661 mg/g CRE (0-200)
[2019-07-22 12:09] LABS: PTHIN 79.4 pg/mL (18.4-80.1)
[2019-07-22 12:10] LABS: Anion Gap 2 (5-15); BUN 19 mg/dL (7-18); BUN/Creat Ratio 14.7 RATIO (10-20); Calcium,Total 9.2 mg/dL (8.5-10.1); Chloride 112 mmol/L (98-107); Creatinine, Serum 1.29 mg/dL (0.70-1.30); EST Glomerular Filtration Rate 57 mL/min (>60); Est Glom Filt Rate - Afr Amer 69 mL/min (>60); Glucose 100 mg/dL (74-106); Phosphorus 2.1 mg/dL (2.5-4.9); Potassium 3.8 mmol/L (3.5-5.1); Sodium Level 143 mmol/L (136-145)
== END ==
PROVIDERS: PCP Family Medicine; Referring Provider Internal Medicine; Visit Provider Internal Medicine
DX: N18.2 Chronic kidney disease, stage 2 (mild) (principal); R80.9 Proteinuria, unspecified
CPT/HCPCS: 36415; 80048; 81002; 82570; 83970; 84100; 84156; 84165; 84166

== ENCOUNTER 2019-07-26 11:52 | Emergency (ER) | payer MEDICARE, BC, SELFPAY ==
[2019-07-26 11:53] VITALS: BP 120/95; PULSE 85; RESP 16; TEMP 36.4; O2SAT 97; BMI 29.3
--- NOTE | 2019-07-26 12:20 | ED.DCSUM_ITS ---
- ER Visit Summary Date of Service: 07/26/19 Chief Complaint: Rectal bleeding History of Present Illness: The patient is a 79 M who presents with rectal bleeding that began this morning. Patient states he has a history of hemorrhoids. Patient is on Eliquis. Patient states the bleeding is been constant for the past 4 hours. Patient states he was sitting on the toilet and it was continuously dripping from his rectum. Patient denies any abdominal pain. Patient denies any fevers or chills. Patient denies any nausea or vomiting. Patient denies any lightheadedness or dizziness. Physical Examination: Vital signs are stable. Patient is afebrile. Patient is in no acute distress. Oral mucosa is pink and moist. Neck is supple. Trachea is midline. There is no JVD noted. Heart was regular rate and rhythm. Lungs are clear and equal bilaterally. Abdomen is soft. Bowel sounds are normal. There is no tenderness. There is no rebound or guarding noted. Rectal exam shows multiple external hemorrhoids. There is dried blood noted on the rectum. There is no active bleeding. There is no tenderness or thrombosis of the hemorrhoids. Skin is warm dry. Cranial nerves II through XII are intact. There are no focal motor or sensory deficits noted. Extremities are intact. There is no calf tenderness. There is 1+ edema of the lower extremities. Test Results: Overall hemoglobin of 11.9 and hematocrit 37.7. These are stable compared to previous results. Comprehensive metabolic profile was essentially within normal limits. PT with INR and PTT were within normal limits. Emergency Department Course and Treatment: Patient is feeling better on reevaluation. Patient states he felt like his bleeding had stopped. Patient was advised to continue Preparation H at home. Patient was instructed to foll ow-up with his primary care physician in 5 to 7 days. Patient was instructed return if worse in any way. Patient and his family understood and were agreeable with the plan. All questions were answered. Disposition: Discharge home Impression: 1. Rectal bleeding 2. External hemorrhoids This note was generated with [employer] dictation software. It may contain incorrect words, spelling, and punctuation that were not noted in review of the chart prior to signing ED Disposition - Plan for ED Patient: Disposition: Home or Assisted Living Diagnosis: Rectal bleeding, External bleeding hemorrhoids Instructions: Hemorrhoids, RECTAL BLEED, Stable Referrals: Kevon Harrell MD [Primary Care Provider] - 5-7 Days
[2019-07-26 12:31] VITALS: BP 122/66; PULSE 63; RESP 16; O2SAT 96
[2019-07-26] MEDS: 0.9% Normal Saline 1,000 ML 1000 ML IV (12:31)
[2019-07-26 12:45] LABS: Absolute Lymphocyte Count 1.87 X10^3/uL (0.83-4.51); Absolute Neutrophil Count 7.4 X10^3/uL (2.0-7.7); Basophil# 0.08 X10^3/uL; Basophil% 0.8 % (0-1); Eosinophil# 0.07 X10^3/uL; Eosinophils% 0.7 % (0-5); Hematocrit 37.7 % (40-54); Hemoglobin 11.9 g/dL (13.0-16.5); Lymphocyte # 1.87 X10^3/ul (4.0); Lymphocyte % 18.1 % (19-41); Mean Corp Hgb Conc 31.6 g/dL (32-36); Mean Corpuscular Hgb 25.6 pg (27.0-32.0); Mean Corpuscular Volume 81.1 fL (80-94); Mean Platelet Vol. 11.2 fl (6.2-12.0); Monocyte# 0.91 X10^3/uL; Monocyte% 8.8 % (0-10); NRBC Flagged by Analyzer 0 % (0-5); Neutrophil # 7.36 X10^3/uL (2.7-7.7); Neutrophil % 70.9 % (47-70); Platelet Count 266 K/mm3 (150-450); RBC Distribution Width CV 17.3 % (11.6-14.6); Red Blood Count 4.65 M/mm3 (4.6-6.2); White Blood Count 10.4 K/mm3 (4.4-11.0)
[2019-07-26 13:00] LABS: AST(SGOT) 20 U/L (15-37); Alanine Aminotransfer ALT/SGPT 23 U/L (16-61); Albumin, Serum 3.2 g/dL (3.2-5.0); Alkaline Phosphatase 122 U/L (45-117); Anion Gap 4 (5-15); BUN 19 mg/dL (7-18); BUN/Creat Ratio 14.3 RATIO (10-20); Calcium,Total 9.4 mg/dL (8.5-10.1); Chloride 112 mmol/L (98-107); Creatinine, Serum 1.33 mg/dL (0.70-1.30); EST Glomerular Filtration Rate 55 mL/min (>60); Est Glom Filt Rate - Afr Amer 67 mL/min (>60); Globulin 3.3 g/dL (2.2-4.2); Glucose 115 mg/dL (74-106); Protein, Total 6.5 g/dL (6.4-8.2); Sodium Level 144 mmol/L (136-145)
[2019-07-26 13:29] LABS: International Normalized Ratio 1.4; Prothrombin Time (Protime)PT. 16.5 SECONDS (11.7-14.9)
[2019-07-26 13:30] LABS: Partial Thromboplast Time 37.7 Seconds (24.1-36.2)
[2019-07-26 14:13] VITALS: BP 160/81; PULSE 76; RESP 17; O2SAT 96
== END 2019-07-26 14:13 | disposition home or self-care (01) ==
PROVIDERS: Emergency Provider Emergency Medicine; PCP Family Medicine
DX: K62.5 Hemorrhage of anus and rectum (principal); K64.4 Residual hemorrhoidal skin tags; J44.9 Chronic obstructive pulmonary disease, unspecified; F17.220 Nicotine dependence, chewing tobacco, uncomplicated; Z79.01 Long term (current) use of anticoagulants
CPT/HCPCS: 80053; 85025; 85610; 85730; 96360; 99285; J7030; A4216

== ENCOUNTER → 2019-10-15 11:35 | Outpatient (CLI) | payer MEDICARE, BC, SELFPAY ==
[2019-08-20 11:16] VITALS: BMI 29.3
[2019-10-15 15:39] LABS: Absolute Lymphocyte Count 2.36 X10^3/uL (0.83-4.51); Absolute Neutrophil Count 7.7 X10^3/uL (2.0-7.7); Basophil# 0.09 X10^3/uL; Basophil% 0.8 % (0-1); Eosinophil# 0.07 X10^3/uL; Eosinophils% 0.6 % (0-5); Hemoglobin 8.3 g/dL (13.0-16.5); Lymphocyte # 2.36 X10^3/ul (4.0); Lymphocyte % 19.9 % (19-41); Mean Corp Hgb Conc 29.6 g/dL (32-36); Mean Corpuscular Volume 74.3 fL (80-94); Monocyte# 1.14 X10^3/uL; Monocyte% 9.6 % (0-10); NRBC Flagged by Analyzer 1.8 % (0-5); Neutrophil # 7.74 X10^3/uL (2.7-7.7); Neutrophil % 65.1 % (47-70); POSITIVE MORPHOLOGY YES; Platelet Count 199 K/mm3 (150-450); RBC Distribution Width CV 20.5 % (11.6-14.6); RBC Distribution Width SD 53.4 fl (35.1-43.9); Red Blood Count 3.77 M/mm3 (4.6-6.2); White Blood Count 11.9 K/mm3 (4.4-11.0)
[2019-10-15 15:40] LABS: Differential Indicated SCAN CRITERIA MET
[2019-10-15 15:49] LABS: ALB/GLOB Ratio 0.8 RATIO (0.9-2.4); AST(SGOT) 78 U/L (15-37); Alanine Aminotransfer ALT/SGPT 41 U/L (16-61); Albumin, Serum 2.9 g/dL (3.2-5.0); Alkaline Phosphatase 124 U/L (45-117); Anion Gap 7 (5-15); BUN 30 mg/dL (7-18); BUN/Creat Ratio 23.8 RATIO (10-20); Calcium,Total 9.7 mg/dL (8.5-10.1); Chloride 110 mmol/L (98-107); Creatinine, Serum 1.26 mg/dL (0.70-1.30); EST Glomerular Filtration Rate 58 mL/min (>60); Est Glom Filt Rate - Afr Amer 71 mL/min (>60); Ferritin 9 ng/mL (26-388); Globulin 3.5 g/dL (2.2-4.2); Glucose 129 mg/dL (74-106); Magnesium 2.3 mg/dL (1.6-2.6); Potassium 3.8 mmol/L (3.5-5.1); Protein, Total 6.4 g/dL (6.4-8.2); Sodium Level 145 mmol/L (136-145)
[2019-10-15 16:16] LABS: Acanthocytes 1+; Anisocytosis 2+; Hypochromasia 1+; Ovalocyte 1+; Platelet Estimate ADEQUATE (ADEQ)
[2019-10-15 17:06] LABS: Vitamin D,25 Hydroxy 33.1 ng/mL
--- OUTSIDE RECORDS SUMMARY | 2020-02-29 07:07 | XMS RPT_ITS | CCD ---
:1940 External Reference #:[id number] Author Organization [facility] Care Team Providers Name Role Phone Unavailable Unavailable Unavailable Results Result Name Value Range Unit Interpretation Flag Date Location cnpn on 2019-11-11 CNPN Telephone (RADTMN) Normal 11-11-2019 [facility] TIANA MARTÍNEZ ([id number]) 1940 [facility] Date Time Provider Department ([id number]) 11/11/19 [facility] During your visit today, we recorded the following informati on about you: Carmelo Rosen RN, RN 11/11/2019 9:17 AM Signed Returned a call to Mr. Martínez's son, Tiana. He wanted t o let me know that his father had taken a turn for the worst. He wanted to give m e the update that his father is now inpatient Hospice at [facility]. He wanted to let us know how grateful he is for the care Dr. Sanchez and team gave to his father. 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 for Visit: Director Institution - Other [8889] Cmt: update Prescriptions as of 11/11/2019 Sig: SALT AND SODA SOLUTION Take 5-10 mL by mouth every 6* POLYETHYLENE GLYCOL 3350 17 G* Take 1 Packet by mouth once d * METOCLOPRAMIDE 10 MG TABLET Take 1 tablet by mouth every * DEXAMETHASONE 4 MG TABLET Take 2 tablets by mouth daily* CLOTRIMAZOLE 10 MG CORINNA Use 1 Corinna as instructed fi* BENZONATATE 100 MG CAPSULE Take 1 capsule by mouth three* LORAZEPAM 0.5 MG TABLET Take 1 tablet by mouth every * OXYCODONE 5 MG TABLET Take 1 tablet by mouth every * ATORVASTATIN 40 MG TABLET Take 40 mg by mouth once madyson* FUROSEMIDE 40 MG TABLET Take 40 mg by mouth every 48 * MELATONIN 3 MG TABLET Take 3 mg by mouth daily at b* ELIQUIS 5 MG TABLET Take 5 mg by mouth twice madyson* TOPROL XL 50 MG TABLET,EXTEND* Take 50 mg by mouth once madyson * OLMESARTAN 5 MG TABLET Take 5 mg by mouth once daily. ROPINIROLE 3 MG TABLET Take 3 mg by mouth daily at b* TRELEGY ELLIPTA INHALATION Inhale as instructed once seth* LATANOPROST 0.005 % EYE DROPS 1 Drop daily at bedtime. MULTIVITAMIN CAPSULE Take 1 capsule by mouth once * EPINEPHRINE 0.3 MG/0.3 ML INJ* Inject 0.3 mg intramuscularly * ALBUTEROL SULFATE HFA 90 MCG/* Inhale 2 Puffs as instructed * ADULT ASPIRIN EC LOW STRENGTH* Take one(1) tablet daily. Problem List As Of Date 11/11/2019 Noted Resolved DIVERTICULOSIS OF COLON W/O BLEED [K57.30] GASTROINTEST HEMORR NOS [K92.2] EXT HEMORRHOID W/O COMPL [K64.4] INT HEMORRHOID W/O COMPL [K64.8] ELEVATED PROSTATE SPECIFIC ANTIGEN [R97.20] 08/01/2007 BPH W/O URINARY OBS/LUTS [N40.0] 08/01/2007 Lung nodule [R91.1] 01/13/2016 Malignant neoplasm of upper lobe of right lung *05/21/2016 Emphysema of lung (HCC) [J43.9] 07/21/2016 Respiratory failure with hypoxia (HCC) [J96.91] 10/31/2019 Nicotine use disorder, F17.2 [F17.200] 11/01/2019 Obesity, Class I, BMI 30-34.9 [E66.9] 11/08/2019 Small cell lung cancer (HCC) [C34.90] 11/08/2019 Encounter Status:Closed by CARMELO ROSEN on 11/11/19 uric acid on 11-07 Urate [Mass/Vol] 5.3 4.0-8.1 mg/dL Normal 11-08-2019 [facility] ([id number]) Comment: Performed By: #### PT, CMP, MG1, PHOS, URIC, CBCDIF ####[facility] [address] [place], [place] [phone] type and screen on 2019-11-08 ABO/RH(D) O POSITIVE Normal 11-08-2019 [facility] ([id number]) Comment: Performed By: #### TSCR #### [facility] [address], [place] [phone] protime on PT Coag (PPP) [Time] 1.0 0.9-1.3 s Normal 0 [facility] ([id number]) Comment: Result Comment: Vitamin K An tagonist (VKA) Therapeutic Range: INR 2 to 3 (Target INR of 2.5) Note: For patients treated w ith VKA drugs, such as warfarin, the [place] [employer] 2012 Guideline recommends a therapeutic INR range of 2 to 3 (target INR of 2.5). This recommendation includes high-risk patients with antiphospholipid syndrome with previous arterial or venous thromboembolism, current-generation mechanical or bioprosthetic aortic heart valve replacement. Note: Patients with toll mechanic al aortic valve replacement and additional risk factors for thromboembolic events (atrial fibrillation, previous thromboembolism, LV dysfunction, hypercoagulable conditions) or an older generation mecha nical AVR (i.e., ball in-Cage) or any mechanical MVR should have a INR therapeutic range of 2.5 to 3.5 (target INR of 3). Vitaliy GH, et al. Chest 2012 , 141:7S-47S Janet RA et al. [facility] 20 17, 70: 252-289 Performed By: #### PT, CMP, MG1, PHOS, URIC, CBCDIF ####[facility] [address] [place], [place] [phone] PT Coag (PPP) [Time] 10.7 9.7-13.0 sec Normal 11-07- 0 [facility] ([id number]) Comment: Performed By: #### PT, CMP, MG1, PHOS, URIC, CBCDIF ####[facility] [address] [place], [place] [phone] progress on 2019-10 PROGRESS HNO ID: [id number] Normal 11-08-2019 [place] Author: Matthew Puri [facility] Service: Oncology Cl maricel Author Type: Physician ([id number]) Type: Progress Notes Filed: 11/11/2019 5:27 PM Note Text: HEMATOLOGY/ONCOLOGY SOLID TUMOR INPATIENT PROGRESS NOTE PATIENT NAME: Tiana Martínez SERVICE DATE: 11/08/2019 TIME: 5:00 AM PRIMARY SERVICE: [address] DAY: 8 CODE STATUS: Code Status: Not on file --------- One-liner: 79M with newly diagnosed metastatic SCLC in the s etting of prior NSCLC s/p radiation, with ongoing discussion regarding transition to home Hospice services given overall functional status limiti ng potential benefit of chemotherapy. --------- INTERVAL HISTORY - Yesterday, goals of care discussion with son and patient a t bedside. Plan for trial of supination to determine eligibility (and t olerability) for radiation simulation. - Overnight, ongoing supportive care for respiratory needs (acetylcysteine), remains on 3L NC otherwise. - Objectively, vitals stable - HR 70s, BP 130s /70s, SPO2 95 % on 3L NC, no fevers. Exam unchanged from prior. - Labs stable from prior. Notable for creatinine of 1.26 (pr eviously 1.2), alk phos 144, ALT 69, AST 225 (stable from prior), urate sta ble at 5.3. WBC 10.77, Hb 7.6, PLT 36 (bicytopenia stable from prior zachariah ues). PLAN FOR TODAY (11/08/2019) - Supportive care. If supination successful, will plan for s imulation and radiation with Radiation Oncology SundayNovember 09. If unable to tolerate, will plan for discharge with home Hospice services at [facility]. - Update post-rounds: unable to tolerate supination. Plan fo r DC today to home with walker, hospital bed, and oxygen concentrator via S transportation. OBJECTIVE Patient Vitals for the past 24 hrs: BP Temp Temp src Pulse Resp SpO2 11/08/19 0141 151/88 ? 11/08/19 0139 164/79 36.3 ?C (97.3 ?F) Oral 86 26 98 % 11/07/19 2200 142/76 36.3 ?C (97.3 ?F) Oral 80 26 95 % 11/07/19 1738 151/77 36.4 ?C (97.5 ?F) Oral 88 24 96 % 11/07/19 1325 145/66 36.3 ?C (97.3 ?F) Oral 69 16 96 % 11/07/19 0953 139/73 36.5 ?C (97.7 ?F) Oral 94 16 95 % 11/07/19 0810 172/98 36.5 ?C (97.7 ?F) Oral 109 20 96 % 11/07/19 0534 165/89 36.7 ?C (98.1 ?F) Oral 103 18 98 % Body mass index is 32.84 kg/m?. NET FLUID BALANCE Intake/Output Summary (Last 24 hours) at 11/08/2019 0500 Last data filed at 11/08/2019 0215 Gross per 24 hour Intake 810 ml Output 850 ml Net -40 ml PHYSICAL EXAM: General appearance:?ill appearing elderly gentleman, in mode rate respiratory distress, intermittently coughing, cooperative w ith appropriate affect HEENT: anicteric sclera, EOMI, MMM. Non-cyanotic lips. ?Tong ue and posterior oropharynx normal. Teeth normal. Respiratory:?Diminished breath sounds in?NORY, LIL, LLL, Diff use expiratory wheezes.?Diaphragmatic excursion and chest wall symmetry myriam ear equal and normal. No accessory muscle use.?On 2L O2.?? Cardiovascular:?RRR without gallop, or rubs or murmur. ?Non- displaced PMI. No parasternal heave. ?No carotid, abdominal aortic, femoral bruits noted. ?Normal pedal pulses bilaterally. 2+?peripheral edema noted in the upper or lower extremities. ?Normal temperature of all 4 extremiti es. Abdomen/GI:?Abdomen soft, non-tender, non-distended. No mass es or organomegaly noted. ?No hepatojugular reflux, no?ascites Extremities:?No clubbing or cyanosis of fingers. No cracking , pitting or petechiae on fingers. Capillary refill <2 sec bilaterally. Musculoskeletal:?Spine shows no kyphosis or scoliosis. Muscl es show no clear abnormality. Skin:No petechiae, ecchymoses, rash noted.??No?jaundice, no palmar erythema, no spider angiomas. ? Neurologic: AOx3, able to vocalize, moves all extremities,?n o?asterixis Psychiatric:?no abnormalities with mood with congruent affec t LINES/TUBES/DRAINS: Lines, Drains, and Airways Line Peripheral 11/04/19 1736 Short Left Antecubital 22 Gauge 3 d ays Peripheral 11/06/19 1206 Midline Right Arm 18 Gauge 1 day MEDICATIONS Current Facility-Administered Medications Medication Dose Route Frequency - NaCl 0.9% 3-5 mL 3-5 mL INTRAVENOUS q 12 H - ondansetron (PF) 4 mg injection (ZOFRAN) 4 mg INTRAVENOUS q 6 H PRN - metoclopramide HCl 10 mg tab(s) (REGLAN) 10 mg ORAL q 6 H PRN - polyethylene glycol 3350 17 g packet (MIRALAX, GLYCOLAX) 1 7 g ORAL DAILY PRN - melatonin 3 mg tab(s) 3 mg ORAL AT BEDTIME - atorvastatin 40 mg tab(s) (LIPITOR) 40 mg ORAL AT BEDTIME - therapeutic multivitamin 1 tablet tab(s) (THERA VITAMIN) 1 tablet ORAL/FEEDING TUBE DAILY - rOPINIRole 3 mg tab(s) (REQUIP) 3 mg ORAL TID - salt and soda 5-10 mL oral liquid 5-10 mL ORAL q 6 H - acetylcysteine 200 mg/mL (20 %) 200 mg (MUCOMYST) 200 mg I NHALATION q 8 H - guaiFENesin 600 mg ER tab(s) (MUCINEX) 600 mg ORAL q 12 H - latanoprost 0.005 % 1 Drop (XALATAN) 1 Drop BOTH EYES AT B EDTIME - magnesium oxide 800 mg tab(s) (MAG-OX) 800 mg ORAL DAILY - albuterol 2.5 mg /3 mL (0.083 %) 2.5 mg (PROVENTIL) 2.5 mg INHALATION q 4 H PRN - sodium chloride 7% solution 4 mL INHALATION ONLY 4 mL INHA LATION BID - clotrimazole 10 mg corinna (MYCELEX) 10 mg ORAL 5X/DAY - NaCl 0.9% iv infusion 5-30 mL/hr INTRAVENOUS CONTINUOUS - aquaphor/nystatin ointment/cholestyramine 1:1:1 diaper oin tment TOPICAL PRN - NaCl 0.9% 10 mL 10 mL INTRAVENOUS q 12 H - NaCl 0.9% 20 mL 20 mL INTRAVENOUS PRN - benzonatate 100 mg cap(s) (TESSALON PERLE) 100 mg ORAL TID - carvedilol 25 mg tab(s) (COREG) 25 mg ORAL BID w MEALS - dexamethasone 8 mg tab(s) (DECADRON) 8 mg ORAL DAILY WITH BREAKFAST - morphine 1 mg injection 1 mg INTRAVENOUS q 1 H PRN Pain: Pain Level: 0 (11/08/19 0405) LABS Recent Labs 11/07/19 0535 11/06/19 1546 11/06/19 0454 11/05/19 0511 WBC 10.76 10.75 11.51* < > Unable to report RBC 3.15* 3.26* 2.82* < > Unable to report HB 7.7* 8.1* 6.9* < > Unable to report HCT 26.0* 26.8* 23.6* < > Unable to report PLT 36* 43* 52* < > Unable to report PTSEC 10.6 -- 10.8 -- 10.4 INR 1.0 -- 1.0 -- 1.0 < > = values in this interval not displayed. Recent Labs 11/07/19 0535 11/06/19 1546 11/06/19453 ABSNEUT 8.02* 8.28* 8.97* NEUTP 74.5 77.0 77.9 Recent Labs 11/07/19 0812 11/07/1935 11/06/19 1546 11/06/194 11/05/19 0511 NA -- 142 140 141 < > -- K -- 3.9 3.6* 3.7 < > -- CO2 33* 30 31* 28 < > -- BUN -- 37* 33* 34* < > -- CREAT -- 1.20 1.21 1.24* < > -- GLUC -- 123* 169* 150* < > -- MG -- 2.7* -- 2.9* -- 2.9* CA -- 9.5 9.5 9.5 < > -- P -- 3.2 -- 3.4 -- 4.1 < > = values in this interval not displayed. Recent Labs 11/07/1935 11/06/19 1546 11/06/19453 TPROT 5.0* 5.3* 5.4* ALB 2.8* 3.0* 2.9* ALKPHOS 150* 155* 146* TBILI 0.6 0.6 0.6 AST 224* 232* 216* ALT 68* 70* 69* URICACID 4.5 4.7 5.2 ASSESSMENT AND PLAN 79M with newly diagnosed metastatic SCLC in the setting of p rior NSCLC s/p radiation, with ongoing discussion regarding transition to [facility] Hospice services given overall functional status limiting potential benefit of chemotherapy. Elements of below plan have been copied forward from bebeto s note by Drs. Seay and Jaxson dated November 07, 2019. Plan remains large ly unchanged. See above interval history and brief plan for updates. 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 The NORY is occluded and not amenable to bronchoscopic interventi on - s/p Endobronchial needle aspirates and endobronchial biops ies -?Rapid On-Site Evaluation (CORY): Preliminary cytology of t he lesion in the left mainstem bronchus was suggestive of malignancy, pos sibly small cell carcinoma - final EBUS path: Small cell carcinoma Plan: - inpatient chemotherapy - f/u rad onc recs - consider whole brain radiation for prophylaxis ? ? # COPD - duoneb PRN and scheduled q4h ?? ? # thrombocytopenia Platelet Count (k/uL) Date Value 11/07/2019 36 (L) 11/06/2019 43 (L) 11/06/2019 52 (L) 11/05/2019 58 (L) 11/05/2019 62 (L) 11/05/2019 Unable to report 11/04/2019 87 (L) ? unclear precipitating factor, likely in the setting of bone marrow infiltration from SCLC Pathologist review: Normocytic Anemia With Moderate Polychro masia Thrombocytopenia S/p 1 unit platelets for bronch Plan: CTM Consider heme consult hold AC ? # anemia Hemoglobin (g/dL) Date Value 11/07/2019 7.7 (L) 11/06/2019 8.1 (L) 11/06/2019 6.9 (L) s/p 1 unit pRBC transfusion 10/31, no overt sign of bleeding DIC labs unrevealing (elevated fibrinogen, d dimer but CT PE was negative) Iron studies unrevealing : Iron, TIBC WNL unclear precipitating factor, likely in the setting of bone marrow infiltration from SCLC Plan: CTM Daily CBC Consider heme consult, bone marrow biopsy? ? ? # CARO -resolved 2/2 aggressive diuresis due to orthopnea, PND Plan: Strict I/O Hold diuresis ? # pAfib AMET called for afib with RVR HR 156 overnight of 11/02 AMET called, given 5 mg IV metoprolol x2, spontaneously converted to NSR Currently on 25 mg metoprolol tartrate BID Home: metoprolol succinate, apixiban 5 mg BID Plan: rate control with carvedilol, uptitrate as neeeded Hold AC due to thrombocytopenia ? # postobstructive pneumonia/pneumonitis -resolved # hypoxia CTA 10/30 w/ new large loculated left hilar mass with atelect asis in the lingula and left upper lobe, and a perihilar mass encasing t he left pulmonary artery, measuring 6.8 x 4.9 x 6.6 cm in size. ?Enl argement of mediastinal nodes, the largest measuring approximately 5.7 x 3.4 cm.? Strep pneumo urine AG neg Covid-19 neg RSV panel, Legionella Ag urine negative Completed 7 day course of Zosyn Plan: Continuous pulse oxymetry SIGNATURE: Levy May MD PATIENT NAME: Tiana Martínez DATE: November 08, 2019 TIME: 5:00 AM PHONE: [phone] HEMATOLOGY/MEDICAL ONCOLOGY/[facility] BRAIN TUMOR CENTER STA FF: STAFF PHYSICIAN NOTE OF PERSONAL INVOLVEMENT IN CARE I have reviewed the progress note obtained and documented by the Resident and I personally participated in the kelley components. I have discussed the case and management of the patient's care with the Resident. The following comments revise or confirm relevant kelley components of the Re sident's note. IMPRESSION/PLAN: Not a candidate for radiation [place] [id number] plan of care on PLAN OF CARE HNO ID: [id number] Normal 11-08-19 [facility] Author: Levy (Res) Yadira Lock ([id number]) Service: Oncology Author Type: Resident Type: Plan of Care Filed: 11/08/2019 12:37 PM Note Text: Point of Care Update / Plan of Care Plan to transition patient to Hospice with [facility] assuming care after transportation home from [facility] [place], with transportatio n (BLS) planned for 1500 today. Discussed plan with son (Mr. Tiana laguerre Jr) by phone. [facility]NR-CC [facility], along with paper prescriptions for oxycodone and lorazepam (due to issu es with electronic prescription). Plan for additional dose of lorazepam and oxycodone prior to transportation. Thank you for the opportunity to be involved in Mr. Martínez's care. Levy May MD phosphorus on 11-07 Phosphate [Mass/Vol] 4.2 2.7-4.8 mg/dL Normal 0 [facility] ([id number]) Comment: Performed By: #### PT, CMP, MG1, PHOS, URIC, CBCDIF ####[facility] [address] [place], [place] [phone] nursing prog on NURSING HNO ID: [id number] Normal 11-08-2019 [place] [facility] Author: Tamara (Rn) J[facility] Service: Hematology/Oncology [place] Author Type: Registered Nurse ([id number]) Type: Nursing Progress Note Filed: 11/08/2019 5:26 PM Note Text: Nursing Progress Note Patient Name: Tiana Martínez Patient Location: [place] [address] Daily Note: Assumed care of pt at 0700. Pt AANDOx3. No c/o CP. C/o SOB at rest, but says this isn't new nor is it very bad right now. No c/o pain at this time. D/C instructions gone over and reviewed by Levy May MD 1336: BP 143/64, HR 71, 96% on 3 L NC 1339: 15 cm midline removed with tip intact, pressure held d /t bleeding 1347: bleeding stopped dressing applied 1349: bleeding restarted and dressing saturated, gauze appli ed with pressure, arm lifted above head and ice applied, pressure ta pe applied 1353: BP 136/69, HR 71, 96% on 3 L NC 1401: no bleeding noted on pressure dressing 1432: no bleeding noted on pressure dressing 1726: pt d/c home via stretcher in stable condition This note was completed by: Tamara John, JUNIE NURSING HNO ID: [id number] Normal 11-08-2019 [place] [facility] Author: Loreta (Rn) JUNIE [facility] Service: ? [place] Author Type: Registered Nurse ([id number]) Type: Nursing Progress Note Filed: 11/08/2019 6:58 AM Note Text: Nursing Progress Note Patient Name: Tiana Martínez Patient Location: [place] [address] Daily Note: 2114: pt newly disoriented to place. Able to reorient patien t. Pt reports feeling more weak after getting into bed. call center receptionist notified. No new orders at this time. After 2118 breathing treatment, pt reports imp rovement in condition This note was completed by: Loreta Smith RN magnesium on 11-07 Magnesium [Mass/Vol] 3.1 1.7-2.3 mg/dL High 0 [facility] ([id number]) Comment: Performed By: #### PT, CMP, MG1, PHOS, URIC, CBCDIF ####[facility] [address] [place], [place] [phone] comp metabolic panel on 2019-11-08 Albumin [Mass/Vol] 2.9 3.9-4.9 g/dL Low 11-08-2019 [facility] ([id number]) Comment: Performed By: #### PT, CMP, MG1, PHOS, URIC, CBCDIF ####[facility] [address] [place], [place] [phone] ALP [Catalytic activity/Vol] 144 38-113 U/L High 0 11-08-2019 [facility] (07627) Comment: Performed By: #### PT, CMP, MG1, PHOS, URIC, CBCDIF ####[facility] [address] [place], [place] [phone] ALT [Catalytic activity/Vol] 69 10-54 U/L High 0 11-08-2019 [facility] ([id number]) Comment: Performed By: #### PT, CMP, MG1, PHOS, URIC, CBCDIF ####[facility] [address] [place], [place] [phone] Anion gap [Moles/Vol] 12 9-18 mmol/L Normal 11-08-19 20 [facility] (98127) Comment: Performed By: #### PT, CMP, MG1, PHOS, URIC, CBCDIF ####[facility] [place] [phone] AST [Catalytic activity/Vol] 225 14-40 U/L High 0 11-08-2019 [facility] (77344) Comment: Performed By: #### PT, CMP, MG1, PHOS, URIC, CBCDIF ####[place] [address] [place] [phone] Bilirubin [Mass/Vol] 0.5 0.2-1.3 mg/dL Normal 0 [facility] (24830) Comment: Performed By: #### PT, CMP, MG1, PHOS, URIC, CBCDIF ####[facility] [place], [place] [phone] Calcium [Mass/Vol] 9.8 8.5-10.2 mg/dL Normal 11-08-2019 [facility] (87265) Comment: Performed By: #### PT, CMP, MG1, PHOS, URIC, CBCDIF ####[facility] [place], [place] [phone] Chloride [Moles/Vol] 101 97-105 mmol/L Normal 0 [facility] (62761) Comment: Performed By: #### PT, CMP, MG1, PHOS, URIC, CBCDIF ####[facility] [address] [place], [place] [phone] CO2 [Moles/Vol] 28 22-30 mmol/L Normal 11-08-2019 [facility] (07863) Comment: Performed By: #### PT, CMP, MG1, PHOS, URIC, CBCDIF ####[facility] [address] [place], [place] [phone] Creatinine [Mass/Vol] 1.26 0.73-1.22 mg/dL High 11-08-19 20 [facility] (52376) Comment: Performed By: #### PT, CMP, MG1, PHOS, URIC, CBCDIF ####[facility] [place], [place] [phone] eGFR- Amer. >60 Normal 11-08-2019 [facility] (91243) Comment: Performed By: #### PT, CMP, MG1, PHOS, URIC, CBCDIF ####[facility] [address] [place], [place] [phone] GFR/1.73 sq M predicted among 55 . Normal 11-08-2019 [facility] non-blacks MDRD (S/P/Bld) [Vol (86730) rate/Area] Comment: Result Comment: eGFR (Estima alejandrina GFR) Units of measure: mL/min/1.73 meters squared eGFR is derived from the ree xpressed MDRD Study equation using the following parameters: serum creatinine, age, gender and race. The creatinine assay has been calibrated to be traceable to IDMS. An eGFR <60 mL/min/1.73m2 fo r >3 months is consistent with chronic kidney disease. Refer to KDOQI guidelines for clinical interpretation. In patients with unstable re nal function, e.g. those with acute kidney injury, the eGFR may not accurately reflect actual GFR. Performed By: #### PT, CMP, MG1, PHOS, URIC, CBCDIF ####[facility] [address] [place], [place] [phone] Glucose [Mass/Vol] 136 74-99 mg/dL High 11-08-2019 [facility] (97225) Comment: Result Comment: The [place] [employer] (ADA) provides guidance for cutoff values for fasting glucose and random glucose. The ADA defines fasting as no caloric intake for at least 8 hours. Fas ting plasma glucose results between 100 to 125 mg/dL indicate increased risk for diabetes (prediabetes). Fasting plasma glucose resul ts greater than or equal to 126 mg/dL meet the criteria for diagnosis of diabetes. In the absence of unequivocal hyperglycemia, results should be confirmed by repeat testing. In a patient with classic s ymptoms of hyperglycemia or hyperglycemic crisis, random plasma glucose results greater than or equal to 200 mg/dL meet the criteria for diagnosis of diabetes. Reference: Standards of [facility] Care in Diabetes 2016, [place] [employer]. Diabetes Care. 2016.39(Suppl 1). Performed By: #### PT, CMP, MG1, PHOS, URIC, CBCDIF ####[facility] [address] [place], [place] [phone] Potassium [Moles/Vol] 4.3 3.7-5.1 mmol/L Normal 11-08-19 20 [facility] (04285) Comment: Performed By: #### PT, CMP, MG1, PHOS, URIC, CBCDIF ####[facility] [address] [place], [place] [phone] Protein [Mass/Vol] 5.1 6.3-8.0 g/dL Low 11-08-2019 [facility] (23308) Comment: Performed By: #### PT, CMP, MG1, PHOS, URIC, CBCDIF ####[facility] [address] [place], [place] [phone] Sodium [Moles/Vol] 141 136-144 mmol/L Normal 11-08-2019 [facility] (34188) Comment: Performed By: #### PT, CMP, MG1, PHOS, URIC, CBCDIF ####[facility] [address] [place], [place] [phone] Urea nitrogen [Mass/Vol] 49 9-24 mg/dL High 11-07 [facility] (43804) Comment: Performed By: #### PT, CMP, MG1, PHOS, URIC, CBCDIF ####[facility] [place], [place] [phone] cbc and differential on 2019-11-08 Abs Baso 0.00 <0.11 k/uL Normal 11-08-2019 [facility] (46340) Comment: Performed By: #### PT, CMP, MG1, PHOS, URIC, CBCDIF ####[facility] [facility] [place], [place] [phone] Abs Canadian 0.19 <0.87 k/uL Normal 11-08-2019 [facility] ([id number]) Comment: Performed By: #### PT, CMP, MG1, PHOS, URIC, CBCDIF ####[place] [address] [place] [phone] Abs Neut 8.45 1.45-7.50 k/uL High 11-08-2019 [facility] ([id number]) Comment: Performed By: #### PT, CMP, MG1, PHOS, URIC, CBCDIF ####[place] [address] [place] [phone] Acanthocytes Few Normal 11-08-2019 [facility] ([id number]) Comment: Performed By: #### PT, CMP, MG1, PHOS, URIC, CBCDIF ####[facility] [place] [phone] Anisocytosis Ql (Bld) Present Normal 11-08-19 20 [facility] ([id number]) Comment: Performed By: #### PT, CMP, MG1, PHOS, URIC, CBCDIF ####[place] [address] [place] [phone] Basophils/100 WBC (Bld) 0.0 % Normal 2019 [facility] (72661) Comment: Performed By: #### PT, CMP, MG1, PHOS, URIC, CBCDIF ####[facility] [address] [place], [place] [phone] DTYPE Manual Diff Normal 11-08-2019 [facility] (11245) Comment: Performed By: #### PT, CMP, MG1, PHOS, URIC, CBCDIF ####[facility] [place], [place] [phone] Eosinophils (Bld) [#/Vol] 0.00 <0.46 k/uL Normal 10-13 [facility] (06822) Comment: Performed By: #### PT, CMP, MG1, PHOS, URIC, CBCDIF ####[facility] [place], [place] [phone] Eosinophils/100 WBC (Bld) 0.0 % Normal 10-13 [facility] (49930) Comment: Performed By: #### PT, CMP, MG1, PHOS, URIC, CBCDIF ####[facility] [place], [place] [phone] Erythrocyte distribution 27.9 11.5-15.0 % High 11-07 [facility] width (RBC) [Ratio] [place] (05123) Comment: Performed By: #### PT, CMP, MG1, PHOS, URIC, CBCDIF ####[facility] [place] [phone] Hematocrit (Bld) [Volume 24.9 39.0-51.0 % Low 11-07 [facility] fraction] (91156) Comment: Performed By: #### PT, CMP, MG1, PHOS, URIC, CBCDIF ####[facility] [address] [place], [place] [phone] Hemoglobin (Bld) 7.6 13.0-17.0 g/dL Low 11-08-2019 [facility] [Mass/Vol] [place] (86320) Comment: Performed By: #### PT, CMP, MG1, PHOS, URIC, CBCDIF ####[facility] [place], [place] [phone] Lymphocytes (Bld) [#/Vol] 1.35 1.00-4.00 k/uL Normal 10-13 [facility] (39716) Comment: Performed By: #### PT, CMP, MG1, PHOS, URIC, CBCDIF ####[facility] [place], [place] [phone] Lymphocytes/100 WBC (Bld) 12.5 % Normal 10-13 [facility] (01126) Comment: Performed By: #### PT, CMP, MG1, PHOS, URIC, CBCDIF ####[place] [address] [place], [place] [phone] MCH (RBC) [Entitic mass] 25.3 26.0-34.0 pG Low 11-07 [facility] (39060) Comment: Performed By: #### PT, CMP, MG1, PHOS, URIC, CBCDIF ####[facility] [place], [place] [phone] MCHC (RBC) [Mass/Vol] 30.5 30.5-36.0 g/dL Normal 11-08-19 [facility] (25517) Comment: Performed By: #### PT, CMP, MG1, PHOS, URIC, CBCDIF ####[facility] [place], [place] [phone] MCV (RBC) [Entitic vol] 83.0 80.0-100.0 fL Normal 11-07 [facility] (78315) Comment: Performed By: #### PT, CMP, MG1, PHOS, URIC, CBCDIF ####[facility] [place], [place] [phone] Pegram% 3.6 % Normal 11-08-2019 [facility] ([id number]) Comment: Performed By: #### PT, CMP, MG1, PHOS, URIC, CBCDIF ####[facility] [address] [place], [place] [phone] Monocytes/100 WBC (Bld) 1.8 % Normal 2019 [facility] (87471) Comment: Performed By: #### PT, CMP, MG1, PHOS, URIC, CBCDIF ####[facility] [address] [place], [place] [phone] Myelo% 3.6 % Normal 11-08-2019 [facility] (09289) Comment: Performed By: #### PT, CMP, MG1, PHOS, URIC, CBCDIF ####[facility] [address] [place] [phone] Neutrophils/100 WBC (Bld) 78.5 % Normal 10-13 [facility] (36898) Comment: Performed By: #### PT, CMP, MG1, PHOS, URIC, CBCDIF ####[facility] [address] [place] [phone] NRBCs 5 0 /100 WBC High 11-08-2019 [facility] (61544) Comment: Performed By: #### PT, CMP, MG1, PHOS, URIC, CBCDIF ####[facility] [address] [place], [place] [phone] Ovalocytes Few Normal 11-08-2019 [facility] (86917) Comment: Performed By: #### PT, CMP, MG1, PHOS, URIC, CBCDIF ####[facility] [address] [place], [place] [phone] Platelet mean <<DO NOT REPORT>> 9.0-12.7 Normal 11-08-19 20 [facility] volume (Bld) [place] ([id number]) [Entitic vol] Comment: Performed By: #### PT, CMP, MG1, PHOS, URIC, CBCDIF ####[facility] [address] [place], [place] [phone] Platelets (Bld) Platelet estimate Normal 2019 [facility] [#/Vol] decreased [place] (91193) Comment: Performed By: #### PT, CMP, MG1, PHOS, URIC, CBCDIF ####[facility] [place], [place] [phone] Platelets (Bld) [#/Vol] 36 150-400 k/uL Low 2019 [facility] (59753) Comment: Result Comment: Result check ed and verified No clot detected. Performed By: #### PT, CMP, MG1, PHOS, URIC, CBCDIF ####[place] [address] [place], [place] [phone] Polychromasia Slight Normal 11-08-2019 [facility] (64289) Comment: Performed By: #### PT, CMP, MG1, PHOS, URIC, CBCDIF ####[facility] [place], [place] [phone] RBC (Bld) [#/Vol] 3.00 4.20-6.00 m/uL Low 11-08-2019 [facility] (96745) Comment: Performed By: #### PT, CMP, MG1, PHOS, URIC, CBCDIF ####[facility] [address] [place], [place] [phone] RBC Fragments Few Normal 11-08-2019 [facility] (28548) Comment: Performed By: #### PT, CMP, MG1, PHOS, URIC, CBCDIF ####[facility] [address] [place], [place] [phone] Spherocytes Few Normal 11-08-2019 [facility] (84064) Comment: Performed By: #### PT, CMP, MG1, PHOS, URIC, CBCDIF ####[facility] [address] [place], [place] [phone] Target Cells Few Normal 11-08-2019 [facility] (68714) Comment: Performed By: #### PT, CMP, MG1, PHOS, URIC, CBCDIF ####[facility] [address] [place], [place] [phone] TSH Qn Present Normal 11-08-2019 [facility] (58368) Comment: Performed By: #### PT, CMP, MG1, PHOS, URIC, CBCDIF ####[facility] [place], [place] [phone] WBC (Bld) [#/Vol] 10.77 3.70-11.00 k/uL Normal 11-08-2019 [facility] (47088) Comment: Performed By: #### PT, CMP, MG1, PHOS, URIC, CBCDIF ####[facility] [address] [place], [place] [phone] case managem on 202 CASE MANAGEM HNO ID: [id number] Normal 11-08-19 20 [facility] Author: Clau Mcintyre (Lisw) [place] ([id number]) Service: Care Management Author Type: Surgical Appliance Fitter Type: Care Mgt Progress Note Filed: 11/08/2019 1:14 PM Note Text: CARE MANAGEMENT DISCHARGE NOTE SERVICE DATE: 11/08/2019 SERVICE TIME: 11:46 AM LOS: 8 days Admission Date: 10/31/2019 DISCHARGE ARRANGEMENT (list agency and phone number) Discharge Arrangement: Hospice Provider Name: [facility] CAREGIVER ASSESSMENT: Caregiver is ready, willing and able to meet the patient's n eeds as recommended by the inter-professional team:: Yes Does the patient have an acute stroke diagnosis, or has the patient had a stroke during this admission?: No Patient's transition needs and plan for meeting these needs: Pt to return to his own home under care of [facility] HANDOFF COMMUNICATION: Handoff to: Primary Care Physician;Other Caregiver Primary Care Physician Name/Phone: Kevon Harrell (sent S [facility]) [phone] (Ph); AND Kaia Lou, (P h) Other Caregiver Name/Phone: [facility] ([phone]) TRANSPORTATION ARRANGEMENTS: Transportation Arrangements: Ambulance/[place] Transportation Agency and Phone #:: [facility] [phone] Date of Trip: 11/08/19 Type of Service: BLS Non-emergency Is Patient Medicaid Pending?: No Discussion of financial coverage occurred with: Family Epic Interface Analyst Location: Main [place] Destination: Home: [address], [address], [place] [address] (Trip # [id number]) Financial Care Management Responsibility: None ADDITIONAL CONTACT RESOURCES: n/a DC to home today, as Physician stated that pt did not tolera te trial supination AND decision made to forego Radiation Therapy. D/C scheduled for 11/08/19 @ 3 pm (pick-up by [facility], BLS), transporting to home under care of [facility] ([phone]). SW/CM spoke w / [facility] Liaison (Katelynn) AND rn emergency (Ro). Physician to sign Po rtable DNR (on green chart). Dr. Levy May informed that [facility] rn emergency ( [facility]) requesting 2 comfort medications (10 tablets per prescriptio n, to cover until [facility] is able to get their own medications ordered). Physician provided hard copy of prescriptions, which pt's so n will have filled upon arrival home. Scripts sent with packet of inform ation. Son to get meds filled at [facility] in [place], [place], . SW/CM confirmed all d/c plans w/ son on phone. Son will alternate presence in home w/ a friend of his who has experience in c. Son state s he may not be able to stay w/ pt 04/12, but is making arrangements w/ fr iend to help. DME's (hospital bed AND 02) being delivered to pt's home tod ivania. [facility] coordinating delivery w/ pt's sonTiana ). Updated notes sent to [facility] via Allscripts. Summa ry of Care sent to Dr. Kevon Harrell AND to Hospice. RN Report do es not need to be called, as they have the information via Allscripts. Once patient arrives home, [facility] will come to pt' s home. IM Letter given. Son to get meds filled at local [facility]. CARIN Rainey, JANETH SIGNATURE: CARIN Blake, JANETH PATIENT NAME: Tiana castorena DATE: November 08, 2019 TIME: 11:46 AM PAGER/CONTACT #: [phone] xr chest 1v frontal port on 2019-11-07 XR CHEST 1V * * *Final Report* * * Normal 11-06 [facility] FRONTAL PORT DATE OF EXAM: Nov 07 2019 9:45AM [place] ([id number]) YENY [id number] - XR CHEST 1V FRONTAL PORT / PROCEDURE REASON: Shortness of breath * * * * Physician Interpretation * * * * EXAMINATION: CHEST RADIOGRAPH (PORTABLE SINGLE VIEW AP) Exam Date/Time: 11/07/2019 9:45 AM Clinical History: Shortness of breath MQ: [id number] Comparison: 1 day prior RESULT: Lines, tubes, and devices: A right axillary vascular cathete r is new from the prior radiograph. Lungs and pleura: Stable volume loss in the left lung with e levation of the left hemidiaphragm. A vague like opacity is again noted overlying the left hemithorax compatible with complete atelectasis of the left upper lobe secondary to neoplastic obstructive process. Ther e may be a small associated left pleural effusion. Right lung is hyperi nflated without any airspace consolidations. No right pleural effusi on. No pneumothorax. Cardiomediastinal silhouette: Stable cardiomediastinal silho uette. Heart is mildly shifted into the left hemithorax. Other: There is mild crowding of left-sided ribs due to unde rlying volume loss.. IMPRESSION: See result. 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[employer]: SCOOBY Transcribe Date/Time: Nov 07 2019 11:16A Dictated by : GARY TAVERA MD This examination was interpreted and the report reviewed and electronically signed by: GARY TAVERA MD on Nov 07 2019 11:18AM EST [id number] uric acid on 11-06 Urate [Mass/Vol] 4.5 4.0-8.1 mg/dL Normal 11-07-2019 [facility] ([id number]) Comment: Performed By: #### PT, CMP, MG1, PHOS, URIC, CBCDIF ####[facility] [address] [place], [place] [phone] therapy nt on 11-06 THERAPY HNO ID: [id number] Normal 11-07-2019 [place] NT Author: Brionna (Ot/L) [facility] Service: ? [place] Author Type: Occupational Therapist ([id number]) Type: Therapy (PT/OT/Speech/Resp) Filed: 11/07/2019 2:29 PM Note Text: Occupational Therapy Evaluation SERVICE DATE: 11/07/2019 SERVICE TIME: 1250 to 1400 ROOM: [place] [address] Recommended Discharge Disposition: Home Recommended Discharge Disposition Comments: Pt planning to d /c home with Hospice Anticipated Discharge Needs: Physical Assist at Home Physical Assist at Home for: Transfers;Finances;Ambulation;Cleaning;Laundry;Meals;Medicat ion Management;Stairs;Safety;Self Care;Shopping;Transportation Recommended Discharge Equipment: To Be Determined OT Recommendations to Nursing: To Bathroom for ADL?s /and or Toileting;OOB for meals;Transfer to Chair;With assist of 1 person(chair to sit while completing ADLs in bathroom) Equipment: Wheeled Walker OT 6 Clicks Score: 19 Precautions/Activity Restrictions: Lines/Tubes/Drains;Fall R isk ASSESSMENT: Pt presents this date functioning below baseline for: I/ADLs , functional mobility/transfers, functional activity tolerance, education , and strength. Pt demonstrates ROSARIO which is limiting performance in performing I/ADLs and functional mobility. Pt requires CGA to safely co mplete functional transfer and mobility. Per pt, planning to d/c ho sd with Hospice. Will continue to work with pt for coping. Anticipat e pt will be safe to return home from an OT perspective with initial 24 assist/supervision to ensure safe transition home once medic ally cleared. Patient Disposition at Start of Session: OOB in Chair;Call B adolfo in Reach Patient Disposition at End of Session: OOB in Chair;Call Bel l in Reach Tolerated Full Session Occupational Therapy Problem List: Education Deficit;Edema;P ain;Safety Deficits;Impaired Self Care;Decreased Activity Tolerance;Dec reased Range Of Motion;Decreased Strength;Functional Mobility Impairment; Balance Impaired Patient /Caregiver Goals: Care For Self;Go Home Goals for Plan of Care: Demonstrate Positive Coping Strategies with: Delmi tanner Demonstrate Competence With Education with: Delmi french Rehab Potential: Good PLAN: Treatment Frequency (times per week): 2 Current admission Treatment Interventions: Education;Self Care / Home Manageme nt;Energy Conservation Training;Strengthening;Functional Mobility Vishnu alcides;Balance Training;Edema Management Plan of Care developed with: Patient TREATMENT INTERVENTIONS: Therapy Diagnosis: Reduced mobility-other;Decreased activiti es of daily living (ADL);Muscle Weakness (generalized);General symptoms and signs-other Interventions Provided: Evaluation;Therapeutic Activity (208 30) $ Evaluation-Moderate (98253) Billed Units: 1 unit Therapeutic Activity (17682) Treatment Minutes: 55 4 units Skilled Intervention(s): Educated pt on role of OT, POC, d/c rec Set up environment to allow for safety and efficiency during fxl mobility task Cues for proper hand placement with sit<>stand. Pt completin g sit<>stand with CGA and use of ww. Completing sit to stand x4 reps standing for ~10 min with CG A and ww Utilized therapeutic use of self, active listening, empathy, and validation of feelings throughout session to promote and inc rease rapport/therapeutic relationship, increase feelings of contr ol by providing choices, provide reassurance, positive reinforceme nt and encouragement to increase participation/motivation in OT ses parrish. Allowed pt to express self and feelings as a mode for releas ing emotions in a positive/healthy manner. Allowed pt to express end of l dennis plans Educated pt on importance of mobility and benefits of Educated patient on energy conservation principles/technique s with emphasis on activity pacing, resting before fatigue, complet ing tasks from a seated position PRN, and balancing rest with activity. Maximo hniques implemented during fxl mobility in halls Facilitation of functional mobility in halls with chairs set up for rest breaks. CGA and ww. Increased time spent completing fxl mobi lity due to implementation of ECT Facilitated increased health literacy through [id number] P MH/chart review with pt: educated pt on situation, current hospitaliz ation course, events leading to current hospitalization. Facilitation of p t recall of perceived experiences. Total Timed Code Treatment Minutes: 55 Total Treatment Time (minutes): 70 SUBJECTIVE: Current Hospital Course: Chart reviewed; Tiana Martínez 79 y o with PMH Afib, NSCLC r lung s/p SBIRT 2016, now with SCLC L lung Reason for Occupational Therapy Consult: New functional defi cit not expected to spontaneously improve Relevant Past Medical History: See initial eval Patient Report: I was told I only have weeks left. 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 OBJECTIVE: Cognition/Communication Deficits Responsiveness: Alert;Awake Follows Commands: 3-step Commands CURRENT FUNCTIONAL STATUS: Current Activities of Daily Living Assist Level Feeding Independent Grooming Set Up Bathing Upper Body Stand By Assistance(seated) Bathing Lower Body Moderate Assistance Dressing Upper Body Set Up Dressing Lower Body Moderate Assistance Toileting Minimal Assistance Instrumental Activities of Daily Living Assist Level Meal/Beverage Prep Light Cleaning Laundry Medication Management with Strategies Functional Mobility Assist Level Rolling Supine to Sit Sit to Supine Scooting Stand By Assistance Sit to Stand Contact Guard Assistance Stand to Sit Contact Guard Assistance Bed to Chair Contact Guard Assistance Toilet/Commode Functional Mobility Contact Guard Assistance Wheeled Walker Functional Mobility Comments: Mod HH distances with frequent rest breaks Please see discipline specific clinical documentation [facility] for complete details for this therapy evaluation/treatment. SIGNATURE: Brionna Landers OT/L PATIENT NAME: Tiana Martínez DATE: November 07, 2019 TIME: 2:13 PM THERAPY HNO ID: [id number] Normal 11-07-2019 [place] NT Author: Huy (Pt) [facility] Service: Physical Therapy [place] Author Type: Physical Therapist ([id number]) Type: Therapy (PT/OT/Speech/Resp) Filed: 11/07/2019 9:53 AM Note Text: Physical Therapy Evaluation SERVICE DATE: 11/07/2019 SERVICE TIME: 16 to 0942 ROOM: [place] [address] Recommended Discharge Disposition: Home PT Anticipated Discharge Needs: Physical Assist at Home Physical Assist at Home for: Self Care;Ambulation;Safety Recommended Discharge Equipment: Wheeled Walker PT Recommendations to Nursing: Ambulate with device;To bathr oom;Transfer to/from chair;OOB for Meals;With assist of 1 person Device: Wheeled Walker PT 6 Clicks Score: 23 Precautions/Activity Restrictions: Lines/Tubes/Drains;Fall R isk ASSESSMENT : Patient demonstrated impaired endurance/activity tolerance, strength, mobility, and balance. Patient fatigued quickly with minimal activity. Patient is appropriate for continued physical therapy while in-house and home health physical therapy upon discharge to improve his s trength, balance, and endurance/activity tolerance. Patient Disposition at Start of Session: OOB in Chair Patient Disposition at End of Session: OOB in Chair Tolerance Limited By Fatigue;Physiologic Response Physical Therapy Problem List: Decreased Activity Tolerance; Decreased Strength;Balance Impaired Patient /Caregiver Goals: Walk;Go Home Goals for Plan of Care: Able to perform HEP with: Independent Transfer supine to/from sit with: Independent Transfer sit to/from stand with: Modified Independent Ambulate with: Modified Independent Distance: 50 Device: Wheeled Walker Rehab Potential: Good PLAN: Treatment Frequency (times per week): 3(1) Current admission Treatment Interventions: Education;Strengthening;Functional Mobility Training;Balance Training Plan of Care developed with: Patient TREATMENT INTERVENTIONS: Therapy Diagnosis: Unsteadiness on feet;Muscle Weakness (gen eralized) Interventions Provided: Evaluation;Gait Training (96896) $ Evaluation-Moderate (78143) Billed Units: 1 unit Gait Training (53928) Treatment Minutes: 11 1 unit Skilled Intervention(s): - Education to patient: Physical therapy plan/role/sabrina martin plan with nursing, benefits of mobility and precautions - Edge of bed sitting activities: verbal and tactile cues fo r upright posture - Sit to Stand training: verbal cues for hand placement, ass istance for anterior weight shift - Gait training with use of front-wheeled walker and verbal cues for use/sequencing. - Instruction in sit to stand technique with proper hand kylah cement and body positioning at edge of bed/chair - Instruction in stand to sit technique with LE's touching c hair/bed and reaching back for surface - Instruction in use of equipment, cues for sequence and pat tern Total Timed Code Treatment Minutes: 11 Total Treatment Time (minutes): 26 SUBJECTIVE: Current Hospital Course: Chart reviewed; Patient is an 79 ye ar old male admitted with: SCLC L lung Patient Report: agreeable to physical therapy Home Environment Patient Lives With: Self/Alone Assistance Available: PRN Entry To Home: No Stairs Number Of Stairs To Bed/Bath: 0 Prior Functional Level: Within Functional Limits OBJECTIVE: CURRENT FUNCTIONAL STATUS: Current Functional Mobility Assist Level Additional Informat ion Rolling Supine to Sit Sit to Supine Scooting Sit to Stand Modified Independent Stand to Sit Modified Independent Bed to Chair Toilet/Commode Gait Supervision Gait Device: Wheeled Walker Gait Distance (feet): 40(20'x2 reps) Stairs Curb Step Car Transfer General Deviations/Observations: Flexed trunk posture;Step l ength decreased Balance: Static Sitting;Static Standing;Dynamic Standing;Dyn amic Sitting Static Sitting Balance: Normal Patient able to maintain stea dy balance without handhold support Dynamic Sitting Balance: Good Patient accepts moderate chall enge, able to maintain balance while picking up object off floor Static Standing Balance: Fair Patient able to maintain adolof ce with handhold support, may require occasional minimal assistance Dynamic Standing Balance: Fair Patient accepts minimal chall enge, able to maintain balance while turning head/trunk JH-HLM: 7: Walk 25 feet or more Please see discipline specific [facility] complete details for this therapy evaluation/treatment. SIGNATURE: Huy Brown PT PATIENT NAME: Tiana Martínez DATE: November 07, 2019 TIME: 9:51 AM protime on PT Coag (PPP) [Time] 1.0 0.9-1.3 s Normal 0 [facility] (30122) Comment: Result Comment: Vitamin K An tagonist (VKA) Therapeutic Range: INR 2 to 3 (Target INR of 2.5) Note: For patients treated w ith VKA drugs, such as warfarin, the [employer] 2012 Guideline recommends a therapeutic INR range of 2 to 3 (target INR of 2.5). This recommendation includes high-risk patients with antiphospholipid syndrome with previous arterial or venous thromboembolism, current-generation mechanical or bioprosthetic aortic heart valve replacement. Note: Patients with toll mechanic al aortic valve replacement and additional risk factors for thromboembolic events (atrial fibrillation, previous thromboembolism, LV dysfunction, hypercoagulable conditions) or an older generation mecha nical AVR (i.e., ball in-Cage) or any mechanical MVR should have a INR therapeutic range of 2.5 to 3.5 (target INR of 3). Geraldinett GH, et al. Chest 2012 , 141:7S-47S Janet RA, et al. [facility] 20 , 70: 252-289 Performed By: #### PT, CMP, MG1, PHOS, URIC, CBCDIF ####[facility] [address] [place], [place] [phone] PT Coag (PPP) [Time] 10.6 9.7-13.0 sec Normal 0 [facility] ([id number]) Comment: Performed By: #### PT, CMP, MG1, PHOS, URIC, CBCDIF ####[facility] [address] [place], [place] [phone] progress on 2019-10 PROGRESS HNO ID: [id number] Normal 11-07-2019 [facility] Author: Matthew Puri Lock ([id number]) Service: Oncology Author Type: Physician Type: Progress Notes Filed: 11/07/2019 10:10 PM Note Text: Solid Tumor Oncology 1 Progress Note Progress Note PATIENT NAME: Tiana Martínez PRIMARY SERVICE: STO1 ADMISSION DAY 10/31/2019 HOSPITAL DAY: 7 CODE STATUS: Full Tiana Martínez 79 yo with PMH Afib, NSCLC r lung s/p SBIRT 20 16, now with SCLC L lung. Plan for Today (11/02/2019) - monitor weights, I/O - hold chemotherapy (carbo/etoposide with dose reduction of carbo due to thrombocytopenia) - continue scheduled duonebs, BPH, mucormyst, hypertonic radha ine, tessalon pearles - increase carvedilol to 25 mg BID due to HTN/ tachycardia - f/u CXR - rad onc consult for palliative radiation to lung - f/u thrombocytopenia workup - consider palliative med consult for air hunger - consider dexamethasone Interval Events - HTN overnight (SBP 170s) - s/p bronch 10/03: final path c/w SCLC Denies fever, chills, palpitations, lightheadedness/dizzines s, chest pain, abdominal pain, n/v/d, pain or discomfort with urination. 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 IPF 7.6%, AIPF 2.43%(platelet transfusion 11/02) range 0.9--1 1.2%, unlikely consumptive Folate, B12 WNL Vital Signs (last filed) Range in last 24h Temp: 36.7 ?C (98.1 ?F) (11/07/19533) Temp Min: 36.4 ?C (9 7.5 ?F) Max: 36.7 ?C (98.1 ?F) Pulse: 103 (11/07/19533) Pulse Min: 84 Max: 108 BP: 165/89 (11/07/19533) BP Min: 149/77 Max: 168/83 Resp: 18 (11/07/19533) Resp Min: 18 Max: 20 SpO2: 98 % (11/07/19533) SpO2 Min: 94 % Max: 99 % O2 Therapy: Nasal Cannula (11/07/19533) Liters: 3.00 (11/07/19533) - Hgb stable Hemoglobin (g/dL) Date Value 11/07/2019 7.7 (L) 11/06/2019 8.1 (L) 11/06/2019 6.9 (L) - Platelets downtrending Platelet Count (k/uL) Date Value 11/07/2019 36 (L) 11/06/2019 43 (L) 11/06/2019 52 (L) 11/05/2019 58 (L) 11/05/2019 62 (L) 11/05/2019 Unable to report 11/04/2019 87 (L) Physical Exam BP 165/89 Pulse 103 Temp 36.7 ?C (98.1 ?F) (Oral) Resp 18 Ht 169 cm (5' 6.54) Wt 93.8 kg (206 lb 12.8 oz) SpO2 98% BMI 32.84 kg/m? General appearance: ill appearing elderly gentleman, in mode rate respiratory distress, intermittently coughing, cooperative w ith appropriate affect HEENT: anicteric sclera, EOMI, MMM. Non-cyanotic lips. Tongu e and posterior oropharynx normal. Teeth normal. Respiratory: Diminished breath sounds in NORY, LIL, LLL, Diff use expiratory wheezes. Diaphragmatic excursion and chest wall symmetry myriam ear equal and normal. No accessory muscle use. On 2L O2. Cardiovascular: RRR without gallop, or rubs or murmur. Non-d isplaced PMI. No parasternal heave. No carotid, abdominal aortic, femoral bruits noted. Normal pedal pulses bilaterally. 2+ peripheral edema noted i n the upper or lower extremities. Normal temperature of all 4 extremitie s. Abdomen/GI: Abdomen soft, non-tender, non-distended. No mass es or organomegaly noted. No hepatojugular reflux, no ascites Extremities: No clubbing or cyanosis of fingers. No cracking , pitting or petechiae on fingers. Capillary refill <2 sec bilaterally. Musculoskeletal: Spine shows no kyphosis or scoliosis. Muscl es show no clear abnormality. Skin:No petechiae, ecchymoses, rash noted. No jaundice, no p almar erythema, no spider angiomas. Neurologic: AOx3, able to vocalize, moves all extremities,?n o asterixis Psychiatric: no abnormalities with mood with congruent affec t Fluid Balance Intake/Output Summary (Last 24 hours) at 11/07/2019 0747 Last data filed at 11/07/2019 0700 Gross per 24 hour Intake 240 ml Output 1350 ml Net -1110 ml Last Weight: 93.8 kg (206 lb 12.8 oz) (11/06/19 0800) Admit Weight: 91.6 kg (202 lb) (11/04/19 1341) Intake/Output 11/03/19 07 - 11/04/19 0659 11/04/19 07 - 11/05/19 0659 11/05/19 07 - 11/06/19 0659 11/06/19 0700 - 11/07/19 0659 11/07/19 07 - 11/08/19 0659 Intake (ml) 1668 1260 960 240 ? Output (ml) 2185 755 8664 1375 175 Net (ml) 645 414 -097 -8543 -480 Labs CBC: Recent Labs 11/07/19 0535 11/06/19 1546 11/06/19 0454 11/05/19 2235 11/05/19 1545 11/05/19 0511 11/04/19 1647 11/04/19 0615 11/01/19 0330 10/31/19 1357 WBC 10.76 10.75 11.51* 11.26* 11.14* Unable to report 10.71 11.16* < > 8.48 9.17 HB 7.7* 8.1* 6.9* 7.4* 7.1* Unable to report 7.9* 7.5* < > 6 .4* 7.2* HCT 26.0* 26.8* 23.6* 25.5* 23.9* Unable to report 27.9* 26. 0* < > 22.6* 25.4* PLT 36* 43* 52* 58* 62* Unable to report 87* 99* < > 42* 41* MCV 82.5 82.2 83.7 83.3 83.0 Unable to report 83.3 83.3 < > 81.6 80.9 RDWCV 27.9* 27.1* 29.5* 30.2* 29.8* Unable to report 29.9* 2 9.7* < > 29.2* 29.2* NEUTP -- -- 77.9 73.7 -- -- -- -- -- 70.0 73.0 ABSNEUT -- -- 8.97* 8.30* -- -- -- -- -- 5.94 6.69 LYMPHP -- -- 11.5 10.5 -- -- -- -- -- 22.0 19.0 MONOP -- -- 1.8 1.8 -- -- -- -- -- 5.0 4.0 EODINP -- -- 0.0 0.0 -- -- -- -- -- 0.0 1.0 < > = values in this interval not displayed. COAG: Recent Labs 11/07/1935 11/06/19 0454 11/05/19 0511 11/04/19 0615 11/03/19 0115 11/01/19 0330 10/31/19 1357 APTT -- -- -- -- -- 26.2 -- INR 1.0 1.0 1.0 1.0 1.0 -- 1.0 BMP: Recent Labs 11/07/19 0535 11/06/19 1546 11/06/19 0454 11/05/19 1545 11/03/19 1252 11/03/19 0115 11/02/19 0544 11/01/19 0330 GLUC 123* 169* 150* 181* 142* 179* 144* 149* NA 142 140 141 143 146* 141 143 146* K 3.9 3.6* 3.7 3.5* 3.2* 3.0* 3.3* 3.4* CHLOR 104 102 102 101 102 100 103 105 CO2 30 31* 28 28 29 27 24 29 ANION 8* 7* 11 14 15 14 16 12 BUN 37* 33* 34* 37* 34* 35* 38* 39* CREAT 1.20 1.21 1.24* 1.33* 1.17 1.26* 1.18 1.40* CHEM: Recent Labs 11/07/19 0511/06/19 1546 11/06/19 0454 11/05/19 1545 11/05/19 0511 11/04/19 0615 11/03/19 1252 11/03/19 0115 11/02/19 0544 11/01/19 0330 10/31/19 1357 ALB 2.8* 3.0* 2.9* 3.1* -- -- -- -- -- -- 3.0* TPROT 5.0* 5.3* 5.4* 5.4* -- -- -- -- -- -- 5.5* CA 9.5 9.5 9.5 9.7 -- -- 9.7 9.8 9.5 9.5 9.4 MG 2.7* -- 2.9* -- 2.9* 2.9* -- 2.5* -- -- -- HEPATIC: Recent Labs 11/07/19 0535 11/06/19 1546 11/06/19 0454 11/05/19 1545 10/31/19 1357 ALKPHOS 150* 155* 146* 140* 108 ALT 68* 70* 69* 61* 56* AST 224* 232* 216* 207* 141* TBILI 0.6 0.6 0.6 0.5 0.4 Medications Scheduled carvedilol, 25 mg, BID w MEALS NaCl 0.9%, 10 mL, q 12 H benzonatate, 100 mg, TID allopurinol, 100 mg, TID magnesium oxide, 800 mg, DAILY sodium chloride 7% solution, 4 mL, BID clotrimazole, 10 mg, 5X/DAY salt and soda, 5-10 mL, q 6 H acetylcysteine, 200 mg, q 8 H guaiFENesin, 600 mg, q 12 H latanoprost, 1 Drop, AT BEDTIME atorvastatin, 40 mg, AT BEDTIME therapeutic multivitamin, 1 tablet, DAILY rOPINIRole, 3 mg, TID NaCl 0.9%, 3-5 mL, q 12 H melatonin, 3 mg, AT BEDTIME PRN NaCl 0.9%, 20 mL, PRN aquaphor/nystatin ointment/cholestyramine 1:1:1, , PRN albuterol, 2.5 mg, q 4 H PRN ondansetron (PF), 4 mg, q 6 H PRN metoclopramide HCl, 10 mg, q 6 H PRN polyethylene glycol 3350, 17 g, DAILY PRN Infusion Medications: NaCl 0.9%, Last Rate: 10 mL/hr (11/04/19 5576) Micro BCx 10/[address] 12/24/2018 Spiculated right upper lobe subpleural nodule is mildly larg er and more consolidative in comparison to prior scans, and suspicious f or recurrence/growth. ?Notably, the nodule demonstrated residua l mild FDG avidity on a remote PET/CT from 01/15/2018 and previously se en groundglass components of the nodule are now replaced with s olid components. Interval resolution of diffuse centrilobular nodules and per ibronchial groundglass opacities compatible with resolved infection or aspiration. Stable 3 mm indeterminate left upper lobe nodule. ?New clust er of 2-4 mm centrilobular nodules in the RLL could be infectious/inflamm atory. ? Follow-up is suggested. ? CTA 10/31/2019 no pulmonary embolism arterial dissection. Spi culated nodule in the right upper lobe measuring approximately 1.5 cm, with a large loculated left hilar mass with atelectasis in the lingula an d left upper lobe, and a perihilar mass encasing the left pulmonary arter y, measuring 6.8 x 4.9 x 6.6 cm in size. Enlargement of mediastinal nodes , the largest measuring approximately 5.7 x 3.4 cm. Oncologic History - Right upper lobe non-small cell lung cancer (stage Ia) s/p SBRT (50 Gy in 5 fx) completed 03/22/16 -The patient continued to be monitored by CT, and showed no evidence of disease but a visible CT density continued to increase sligh tly over the previous CTs, though negative on PET uptake, concerning for post SBRT change vs progression of PET negative neoplasm -Was last seen by Dr. Sanchez, eventually on 04/23/2019 whe n he recommended CT-guided biopsy of this possible mass. The biop sy from 05/20/2019 showed focally infarcted tissue without granulomas or malignant cells. Chest CTA 10/30 showed new large loculated left hilar mass wi th atelectasis in the lingula and left upper lobe, and a perihilar mass enc asing the left pulmonary artery, measuring 6.8 x 4.9 x 6.6 cm in size. Also noted was enlargement of mediastinal nodes, the largest measuring appr oximately 5.7 x 3.4 cm. Assessment and Plan ? 79 year old male PMH of Right upper lobe non-small cell lung cancer (stage Ia) s/p SBRT (50 Gy in 5 fx) completed 03/29, who presented with SOB, found to have a large loculated left hilar mass with atelect asis in the lingula and left upper lobe, and encasing the left pulmonary artery, with possible postobstructive pneumonitis. ? 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 The NORY is occluded and not amenable to bronchoscopic interventi on - s/p Endobronchial needle aspirates and endobronchial biops ies - Rapid On-Site Evaluation (CORY): Preliminary cytology of t he lesion in the left mainstem bronchus was suggestive of malignancy, pos sibly small cell carcinoma - final EBUS path: Small cell carcinoma Plan: - inpatient chemotherapy - f/u rad onc recs - consider whole brain radiation for prophylaxis ? ? # COPD - duoneb PRN and scheduled q4h ? ? # thrombocytopenia Platelet Count (k/uL) Date Value 11/07/2019 36 (L) 11/06/2019 43 (L) 11/06/2019 52 (L) 11/05/2019 58 (L) 11/05/2019 62 (L) 11/05/2019 Unable to report 11/04/2019 87 (L) unclear precipitating factor, likely in the setting of bone marrow infiltration from SCLC Pathologist review: Normocytic Anemia With Moderate Polychro masia Thrombocytopenia S/p 1 unit platelets for bronch Plan: CTM Consider heme consult hold AC ? # anemia Hemoglobin (g/dL) Date Value 11/07/2019 7.7 (L) 11/06/2019 8.1 (L) 11/06/2019 6.9 (L) s/p 1 unit pRBC transfusion 10/31, no overt sign of bleeding DIC labs unrevealing (elevated fibrinogen, d dimer but CT PE was negative) Iron studies unrevealing : Iron, TIBC WNL unclear precipitating factor, likely in the setting of bone marrow infiltration from SCLC Plan: CTM Daily CBC Consider heme consult, bone marrow biopsy? ? ? # CARO -resolved 2/2 aggressive diuresis due to orthopnea, PND Plan: Strict I/O Hold diuresis # pAfib AMET called for afib with RVR HR 156 overnight of 11/02 AMET called, given 5 mg IV metoprolol x2, spontaneously converted to NSR Currently on 25 mg metoprolol tartrate BID Home: metoprolol succinate, apixiban 5 mg BID Plan: rate control with carvedilol, uptitrate as neeeded Hold AC due to thrombocytopenia # postobstructive pneumonia/pneumonitis -resolved # hypoxia CTA 10/30 w/ new large loculated left hilar mass with atelect asis in the lingula and left upper lobe, and a perihilar mass encasing t he left pulmonary artery, measuring 6.8 x 4.9 x 6.6 cm in size. ?Enl argement of mediastinal nodes, the largest measuring approximately 5.7 x 3.4 cm.? Strep pneumo urine AG neg Covid-19 neg RSV panel, Legionella Ag urine negative Completed 7 day course of Zosyn Plan: Continuous pulse oxymetry Rounding Checklist: Diet/Nutrition: heart healthy Mobility status: mobile VTE Prophylaxis: deferred due to thrombocytopenia Pain management: tylenol Glycemic control: SSI Code Status: full Dispo Planning: pending 10/31/19 1215 vte pharmacologic prophylaxis contraindicated (ky,wi) 10/31/19 1215 pneumatic compression stockings (ky,wi) 10/31/19 1215 activity - mobilize patient (ky,wi) SIGNATURE: Skylar Seay MD PHD PGY-1 PATIENT NAME: Tiana medina DATE: 11/07/2019 TIME: 7:58 AM PAGER: [phone] Note: These recommendations are not final until staffed by max harris HEMATOLOGY/MEDICAL ONCOLOGY/[facility] BRAIN TUMOR CENTER STA FF: STAFF PHYSICIAN NOTE OF PERSONAL INVOLVEMENT IN CARE I have reviewed the progress note obtained and documented by the Resident and I personally participated in the kelley components. I have discussed the case and management of the patient's care with the Resident. The following comments revise or confirm relevant kelley components of the Re sident's note. IMPRESSION/PLAN: Chemotherapy unfortunately not a safe option due to marrow i nvasion that is highly unlikely to respond in a timely enough manner to b e able to treat with chemo. As outlined in POC note by Dr. May will do trial of lying supine and if able would sim and treat with RT. Otherw [place] [id number] plan of care on PLAN OF CARE HNO ID: [id number] Normal 11-07-19 [facility] Author: Levy (ResAnatoly May [place] ([id number]) Service: Oncology Author Type: Resident Type: Plan of Care Filed: 11/07/2019 5:57 PM Note Text: Point of Contact Update / Family Discussion Called son Mr. Tanya Gutierrez at listed number ([phone]) and placed on speakerphone to facilitate family discussion at bedside. Initially covered the previous discussion between patient, s on, and Radiation Oncology colleagues, and the overall concern that Mr. Martínez's respiratory status at this point would preclude comfortably lying flat for an MRI. Based on this discussion it appears that the origina l plan was for patient to forego MRI and plan for transition to home [facility] e services. Upon clarification, Mr. Martínez stated that he misinterpreted and believed that radiation was not recommended altogether, and he stated that, if it were a possibility, he would be willing to give it a try. After discussion with Dr. Weathers (Radiation Oncology), w e will plan to trial the patient lying flat in his current gurney tonight, to simulate lying flat for radiation simulation, and if he is able to to lerate this for 30 minutes, then we would consider radiation for November 09. If he is unable to tolerate this (despite the therapies he i s currently on), then a plan will be made for discharge from the [facility] at earliest possibility - pending establishment with home Hospice servic es (son has already been looking into possibilities) along with provisio n of a hospital bed (head of bed elevation to assist with Mr. Gayla banegas's respiratory distress while supinated), oxygen (for comfort a nd respiratory distress), and safe transportation (given his medical comple xity, would likely be safer than having his son transport him home). Noted that if he were unable to tolerate this trial of supin ation without dyspnea, then radiation simulation and treatment would be fo regone entirely given that enrollment in Hospice would not be able to co-exist with concurrent pursuit of radiation or other therapies. Plan: - Trial supination - If tolerable from dyspnea standpoint, will plan to offer k eeelissa patient inpatient for radiation on Sunday - If not tolerable, will transition toward Hospice services without plan for future radiation therapy. No further questions at this time - discussed with patient, son, and Radiation Oncology colleagues. Levy May MD PLAN OF CARE HNO ID: [id number] Normal 11-07-19 [facility] Author: Ilia Nevarez [place] ([id number]) Service: Radiation Oncology Author Type: Physician Type: Plan of Care Filed: 11/07/2019 12:00 PM Note Text: Spoke with patient and his son at length this morning. Mr. 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 He was initially to start on leoncio motherapy, but this has been held due to thrombocytopenia, likely related t o marrow infiltration. Asked to discuss palliative radiation with yolanda mathews. Had long conversation regarding expected course and prognosi s at the son's request, which unfortunately is quite poor, particularly in the setting of inability to receive chemotherapy. Discussed potential for p alliative radiation to left lung primary to potentially alleviate some of his respiratory symptoms (currently feels constantly dyspneic, o n 3L O2), however, patient and son are hesitant to want to proceed wit h RT as he feels he will be unable to tolerate laying anywhere near fla t for simulation/treatment. We discussed what treatment would enta il and they would like to discuss further together before making a decis ion. They are considering forgoing any treatment and enrolling in hospice. Patient will let us know what they decide and we will arrang e any RT treatment should they wish to pursue it for symptom relief. Supportive care for his dyspnea including initiation of deca dron, O2, morphine and involvement of palliative care are appropriate. Consider transfusion for anemia as may be contributing to dyspnea as well. Please call with any questions/concerns. Arlette Weathers MD Radiation Oncology Resident Pager: [phone] Case reviewed with the resident and I concur with her recomm endations. Ilia Nevarez MD Covering for Attending Dr. Sam Sanchez. phosphorus on 11-06 Phosphate [Mass/Vol] 3.2 2.7-4.8 mg/dL Normal 0 [facility] ([id number]) Comment: Performed By: #### PT, CMP, MG1, PHOS, URIC, CBCDIF ####[facility] [address] [place], [place] [phone] nutrition on 11-06 NUTRITION HNO ID: [id number] Normal 11-07-2019 [facility] Author: Analisa Rivera (Dtr) Gerard Lock ([id number]) Service: Nutrition Therapy Author Type: Dumper Bailer Operator Type: Nutrition Filed: 11/07/2019 11:59 AM Note Text: NUTRITION THERAPY SENIOR INSPECTOR NOTE SERVICE DATE: 11/07/2019 SERVICE TIME: 7:40 Visit Type: Length of Stay Evaluation Goals Met: Not Met Plan of Care: Follow-Up: Tech Reassessment Nursing Admission Assessment Malnutrition Score: 0 Nutrition Intake: Current Diet: DIET REGULAR Average Daily Calorie Intake (kcal): 630 kcal(pt frequently NPO skipped a few meals.) Average Daily Protein Intake (gm): 25 gm Appetite: Poor GI Symptoms: None Anthropometrics: Body mass index is 32.84 kg/m?. Loss of lean body mass/visual muscle wasting: Yes Weight Change: Increased SIGNATURE: Analisa Gee DTR PATIENT NAME: Tiana Martínez DATE: November 07, 2019 TIME: 11:59 AM PAGER: nursing prog on NURSING HNO ID: [id number] Normal 11-07-2019 [place] [facility] Author: Loreta (Rn) [facility] Service: ? [place] Author Type: Registered Nurse ([id number]) Type: Nursing Progress Note Filed: 11/07/2019 5:55 AM Note Text: Nursing Progress Note Patient Name: Tiana Martínez Patient Location: [place] [address] Daily Note: 2149: pt BP 167/71. Pt denied symptoms. call center receptionist notified, co reg ordered and administered per JUL 2249: stone setter [employer] physician at bedside after being paged by RT d /t pt c/o SOB and wheezing. Pt was given breathing treatment. call center receptionist orde red continuous pulse ox. 0534: pt BP 165/89. Pt denies symptoms. call center receptionist notified. No new orders at this time This note was completed by: Loreta Smith RN magnesium on 11-06 Magnesium [Mass/Vol] 2.7 1.7-2.3 mg/dL High 0 [facility] ([id number]) Comment: Performed By: #### PT, CMP, MG1, PHOS, URIC, CBCDIF ####[facility] [address] [place] [phone] gasv + all on 11-06 Base Excess 6 mmol/L Normal 11-07-2019 [facility] (52082) Comment: Performed By: #### VALLBG ## ##[facility], [place] [phone] Blood Gas Comm, [place] . Normal 11-07-2019 [facility] ([id number]) Comment: Performed By: #### VALLBG ## ##[facility], [place] [phone] Calcium [Mass/Vol] 1.32 1.08-1.30 mmol/L High 11-07-2019 [facility] (08492) Comment: Performed By: #### VALLBG ## ##[place] [address], [place] [phone] Carboxyhemoglobin,Gerson 2.2 <2.1 % High 11-07-19 20 [facility] (46590) Comment: Performed By: #### VALLBG ## ##[place] [address], [place] [phone] CO2 [Moles/Vol] 33 25-29 mmol/L High 11-07-2019 [facility] (99450) Comment: Performed By: #### VALLBG ## ##[place] [address], [place] [phone] Glucose [Mass/Vol] 142 60-105 mg/dL High 11-07-2019 [facility] (95983) Comment: Performed By: #### VALLBG ## ##[place] [address], [place] [phone] HCO3 (Bld) [Moles/Vol] 31 24-28 mmol/L High 020 [facility] (04724) Comment: Performed By: #### VALLBG ## ##[place] [address] [place], [place] [phone] Hematocrit (Bld) [Volume 26.0 39.0-51.0 % Low 11-06 [facility] fraction] (74238) Comment: Performed By: #### VALLBG ## ##[place] [address], [place] [phone] Hemoglobin (Bld) 8.4 13.0-17.0 g/dL Low 11-07-2019 [facility] [Mass/Vol] [place] (54760) Comment: Performed By: #### VALLBG ## ##[place] [address], [place] [phone] Lactate [Moles/Vol] 1.7 0.5-2.2 mmol/L Normal 11-07-2019 [facility] (31016) Comment: Performed By: #### VALLBG ## ##[place] [address], [place] [phone] Methemoglobin 0.9 <1.6 % Normal 11-07-2019 [facility] (66301) Comment: Performed By: #### VALLBG ## ##[place] [address], [place] [phone] Oxygen (Bld) [Partial 71 35-45 mm Hg High 11-07-19 20 [facility] pressure] (18395) Comment: Performed By: #### VALLBG ## ##[place] [address], [place] [phone] Oxyhemoglobin, Gerson. 90 60-85 % High 11-07-2019 [facility] (01726) Comment: Performed By: #### VALLBG ## ##[place] [address], [place] [phone] pCO2 49 42-55 mm Hg Normal 11-07-2019 [facility] (59934) Comment: Performed By: #### VALLBG ## ##[place] [address] [address], [place] [phone] pCO2, Temp Correct 49 42-55 mm Hg Normal 11-07-2019 [facility] (22439) Comment: Performed By: #### VALLBG ## ##[place] [address], [place] [phone]- [phone] pH (Bld) 7.42 7.32-7.42 [pH] Normal 11-07-2019 [facility] (43811) Comment: Performed By: #### VALLBG ## ##[place] [address], [place] [phone]- [phone] pH, Temp Corrected 7.42 7.32-7.42 Normal 11-07-2019 [facility] ([id number]) Comment: Performed By: #### VALLBG ## ##[place] [address] [place], [place] [phone] pO2, Temp Corrected 71 35-45 mm Hg High 11-07-2019 [facility] ([id number]) Comment: Performed By: #### VALLBG ## ##[place] [address] [address], [place] [phone] Potassium [Moles/Vol] 4.0 3.5-5.0 mmol/L Normal 11-07-19 [facility] (44143) Comment: Performed By: #### VALLBG ## ##[place] [address], [place] [phone] Sodium [Moles/Vol] 140 136-144 mmol/L Normal 11-07-2019 [facility] ([id number]) Comment: Performed By: #### VALLBG ## ##[place] [address], [place] [phone]- [phone] consult on CONSULT HNO ID: [id number] Normal 11-07-2019 [facility] Author: Della De Pasquale [place] ([id number]) Service: Palliative Care Author Type: Nurse Practitioner Type: Consults Filed: 11/07/2019 4:49 PM Note Text: PALLIATIVE MEDICINE INITIAL CONSULT To contact the [facility] palliative medicine service from 5p - 8a on weekdays and anytime during the weekend, please go to the On -Call Directory and type palliative in the search bar. We are jules fuentes under [facility]. SERVICE DATE: 11/07/2019 PATIENT NAME: Tiana Martínez PALLIATIVE MEDICINE OUTPATIENT PROVIDER: No CURRENT ATTENDING PROVIDER: Matthew Puri REFERRING PHYSICIAN: Matthew Puri REASON FOR CONSULT/CHIEF CONSULT COMPLAINT: Other symptom co ntrol (specify symptom): dyspnea Primary Site of Disease/Medical Illness: Lung: NSCLC diagnos ed in 2016, treated with radiation then surveillance, now with SMLC in L UL with mets to mediastinal nodes and bone marrow involvement Pertinent Medical History: COPD, 50 year smoking history, a fib, CVA, DM, SCC of skin and thyroid Subjective HISTORY OF PRESENT ILLNESS: Tiana Martínez is a 79 year old m tamara from [place], [place] admitted from OSH 10/31/19 with dyspnea. Care is complicated by PMH of NSCLC of RUL, COPD, a fib, CVA, DM, SCC of skin and t hyroid now with SCLC of NORY with mets to mediastinal nodes and bone mar row involvement. Palliative medicine is consulted for air hunger . Bronch 11/03 showing extensive airway tumor in LMS bronchi an d NORY, biopsy showing small cell lung cancer, plan was for inpatient chemo but has not been able to start d/t bicytopenia. Patient states he lives alone in [place]. Son lives nearby. He was able to care for himself and complete daily household tasks until ab out 2 weeks ago when he started to notice more shortness of breath and s tarted feeling weaker. No pain. States he knows he can't received chemo for his cancer because of low blood counts. He has some concern about being able to lie flat for radiation too. Discussed trial of low dose opioid f or air hunger, patient is agreeable to try. PAST MEDICAL HISTORY Diagnosis Date - Atrial fibrillation (HCC) - Basal 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 [id number] - COPD (chronic obstructive pulmonary disease) (HCC) - CVA (cerebral vascular accident) (HCC) 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 - Diverticulosis of colon (without mention of hemorrhage) - DM (diabetes mellitus) (HCC) - Hemorrhage of gastrointestinal tract, unspecified - Hypercholesteremia - Lung cancer (HCC) - Sebaceous cyst knee - Sebaceous cyst arm pit - Sebaceous cyst back PAST SURGICAL HISTORY Procedure Laterality Date - COLONOSCOP W/ OR W/O BRSH SPEC 06/14/07 [facility] inpt - MIDLINE INSERTION/CONSULT 11/06/2019 Current Facility-Administered Medications Medication Dose Route Frequency - NaCl 0.9% 3-5 mL 3-5 mL INTRAVENOUS q 12 H - ondansetron (PF) 4 mg injection (ZOFRAN) 4 mg INTRAVENOUS q 6 H PRN - metoclopramide HCl 10 mg tab(s) (REGLAN) 10 mg ORAL q 6 H PRN - polyethylene glycol 3350 17 g packet (MIRALAX, GLYCOLAX) 1 7 g ORAL DAILY PRN - melatonin 3 mg tab(s) 3 mg ORAL AT BEDTIME - atorvastatin 40 mg tab(s) (LIPITOR) 40 mg ORAL AT BEDTIME - therapeutic multivitamin 1 tablet tab(s) (THERA VITAMIN) 1 tablet ORAL/FEEDING TUBE DAILY - rOPINIRole 3 mg tab(s) (REQUIP) 3 mg ORAL TID - salt and soda 5-10 mL oral liquid 5-10 mL ORAL q 6 H - acetylcysteine 200 mg/mL (20 %) 200 mg (MUCOMYST) 200 mg I NHALATION q 8 H - guaiFENesin 600 mg ER tab(s) (MUCINEX) 600 mg ORAL q 12 H - latanoprost 0.005 % 1 Drop (XALATAN) 1 Drop BOTH EYES AT B EDTIME - magnesium oxide 800 mg tab(s) (MAG-OX) 800 mg ORAL DAILY - albuterol 2.5 mg /3 mL (0.083 %) 2.5 mg (PROVENTIL) 2.5 mg INHALATION q 4 H PRN - sodium chloride 7% solution 4 mL INHALATION ONLY 4 mL INHA LATION BID - clotrimazole 10 mg corinna (MYCELEX) 10 mg ORAL 5X/DAY - NaCl 0.9% iv infusion 5-30 mL/hr INTRAVENOUS CONTINUOUS - aquaphor/nystatin ointment/cholestyramine 1:1:1 diaper oin tment TOPICAL PRN - NaCl 0.9% 10 mL 10 mL INTRAVENOUS q 12 H - NaCl 0.9% 20 mL 20 mL INTRAVENOUS PRN - benzonatate 100 mg cap(s) (TESSALON PERLE) 100 mg ORAL TID - carvedilol 25 mg tab(s) (COREG) 25 mg ORAL BID w MEALS - dexamethasone 8 mg tab(s) (DECADRON) 8 mg ORAL DAILY WITH BREAKFAST - morphine 1 mg injection 1 mg INTRAVENOUS q 1 H PRN ALLERGIES Allergen Reactions - Bees FAMILY HISTORY Problem Relation Age of Onset - Emphysema Mother - Heart disease Mother - Hypertension Mother - Stroke Mother - Heart Father - Alcohol/Drug Father - Hypertension Father - Stroke Father - Breast Cancer Sister - None Sister Family History of Substance Misuse: none SOCIAL HISTORY Children yes Drug Use: No Alcohol Use: No Tobacco Use: 0.5 packs/day, for 50 years. Types: Cigarettes REVIEW OF SYSTEMS Modified ESAS ([place] Symptom Assessment Scale): Informati on Provided By: Patient Pain: None Nausea: None Loss of Appetite: Mild Constipation: None Shortness of Breath: Moderate Drowsiness: None Tiredness: Severe Depression: None Anxiety: None How you feel overall: Fair Other problem: None Review of Systems Constitutional: Positive for activity change and fatigue. HENT: Negative for sore throat and trouble swallowing. Eyes: Negative for visual disturbance. Respiratory: Positive for shortness of breath. Cardiovascular: Negative for chest pain. Gastrointestinal: Negative for constipation, diarrhea and na usea. Genitourinary: Negative for dysuria. Musculoskeletal: Negative for back pain. Skin: Negative for rash. Neurological: Positive for weakness. Negative for dizziness. Hematological: Bruises/bleeds easily. Psychiatric/Behavioral: Negative for confusion and dysphoric mood. Objective PHYSICAL EXAMINATION Vital Signs: BP 172/98 Pulse 109 Temp 36.5 ?C (97.7 ?F) (Oral) Resp 20 Ht 169 cm (5' 6.54) Wt 93.8 kg (206 lb 12.8 oz) SpO2 96% BMI 32.84 kg/m? Physical Exam Vitals signs reviewed. Constitutional: General: He is not in acute distress. HENT: Head: Normocephalic and atraumatic. Mouth/Throat: Mouth: Mucous membranes are dry. Eyes: General: No scleral icterus. Pupils: Pupils are equal, round, and reactive to light. Neck: Musculoskeletal: Normal range of motion. Cardiovascular: Rate and Rhythm: Tachycardia present. Pulmonary: Effort: Accessory muscle usage present. Abdominal: Palpations: Abdomen is soft. Musculoskeletal: General: Swelling present. Skin: Coloration: Skin is pale. Neurological: Mental Status: He is alert and oriented to person, place, an d time. Psychiatric: Behavior: Behavior normal. DATA Diagnostic tests and information reviewed for today's visit: Conversation with primary team Most recent labs and imaging results. Medications Impression/Recommendations Tiana Martínez is a 79 year old male from [place], [place] admitte d from OSH 10/31/19 with dyspnea. 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 Palliative me megan is consulted for air hunger. Introduction to Services --Spoke with patient at bedside. --Introduced palliative care philosophy and scope, including support for individuals with serious illness and their families. --Outlined the difference between hospice and palliative car e. --Discussed the availability of palliative team during hospi talization for support needs and/or symptom management as well as in OP set ting if needed. --Patient expressed appreciation for additional layer of sup port Dyspnea R/t SCLC to NORY --Dexamethasone 8mg daily --Trial morphine IV 1mg q 1 hr PRN, would transition to 3mg oral liquid q 2 hrs PRN if effective for home-going ACP --Patient states he knows he can't get chemo for his new SCL C because my blood counts are too low. --States he is thinking about the radiation and wants to subhash k to his son about it --States he has already been thinking about palliative care and hospice. [facility] has a facility that is very close to his home that he is familiar with. States he has a patient navigator who he has already started talking to about this. Dispo --Will need local follow up based on goals of care. [facility] has both palliative medicine and hospice. I spent 18 minutes in face to face time with the patient dis cussing advance care planning and/or goals of care. We were clear ab out the voluntary nature of this discussion and the completion of ad parker directives. This time was exclusive of any other counseling provided during this time. Existence of Advance Directives: Yes, documentation or copy in medical record Plan of Care discussed with: Provider, RN, Patient Thank you for allowing us to participate in the care of this patient. Recommendations will be communicated back to the consulting service by way of shared electronic medical record. SIGNATURE: Della Giordano APRN.CASING BLOWER PAGER/CONTACT #: [id number] comp metabolic panel on 2019-11-07 Albumin [Mass/Vol] 2.8 3.9-4.9 g/dL Low 11-07-2019 [facility] ([id number]) Comment: Performed By: #### PT, CMP, MG1, PHOS, URIC, CBCDIF ####[facility] [address] [place] [phone] ALP [Catalytic activity/Vol] 150 38-113 U/L High 0 11-07-2019 [facility] ([id number]) Comment: Performed By: #### PT, CMP, MG1, PHOS, URIC, CBCDIF ####[place] [address] [place] [phone] ALT [Catalytic activity/Vol] 68 10-54 U/L High 0 11-07-2019 [facility] ([id number]) Comment: Performed By: #### PT, CMP, MG1, PHOS, URIC, CBCDIF ####[facility] [address] [place], [place] [phone] Anion gap [Moles/Vol] 8 9-18 mmol/L Low 11-07-19 [facility] (21526) Comment: Performed By: #### PT, CMP, MG1, PHOS, URIC, CBCDIF ####[facility] [address] [place], [place] [phone] AST [Catalytic activity/Vol] 224 14-40 U/L High 0 11-07-2019 [facility] (96969) Comment: Performed By: #### PT, CMP, MG1, PHOS, URIC, CBCDIF ####[facility] [address] [place], [place] [phone] Bilirubin [Mass/Vol] 0.6 0.2-1.3 mg/dL Normal 0 [facility] (73535) Comment: Performed By: #### PT, CMP, MG1, PHOS, URIC, CBCDIF ####[facility] [place], [place] [phone] Calcium [Mass/Vol] 9.5 8.5-10.2 mg/dL Normal 11-07-2019 [facility] ([id number]) Comment: Performed By: #### PT, CMP, MG1, PHOS, URIC, CBCDIF ####[facility] [place] [phone] Chloride [Moles/Vol] 104 97-105 mmol/L Normal 0 [facility] (78443) Comment: Performed By: #### PT, CMP, MG1, PHOS, URIC, CBCDIF ####[place] [address] [place] [phone] CO2 [Moles/Vol] 30 22-30 mmol/L Normal 11-07-2019 [facility] (98314) Comment: Performed By: #### PT, CMP, MG1, PHOS, URIC, CBCDIF ####[facility] [place], [place] [phone] Creatinine [Mass/Vol] 1.20 0.73-1.22 mg/dL Normal 11-07-19 20 [facility] (34340) Comment: Performed By: #### PT, CMP, MG1, PHOS, URIC, CBCDIF ####[facility] [place], [place] [phone] eGFR- Amer. >60 Normal 11-07-2019 [facility] (33021) Comment: Performed By: #### PT, CMP, MG1, PHOS, URIC, CBCDIF ####[facility] [place], [place] [phone] GFR/1.73 sq M predicted among 58 . Normal 11-07-2019 [facility] non-blacks MDRD (S/P/Bld) [Vol (27192) rate/Area] Comment: Result Comment: eGFR (Estima alejandrina GFR) Units of measure: mL/min/1.73 meters squared eGFR is derived from the ree xpressed MDRD Study equation using the following parameters: serum creatinine, age, gender and race. The creatinine assay has been calibrated to be traceable to IDMS. An eGFR <60 mL/min/1.73m2 fo r >3 months is consistent with chronic kidney disease. Refer to KDOQI guidelines for clinical interpretation. In patients with unstable re nal function, e.g. those with acute kidney injury, the eGFR may not accurately reflect actual GFR. Performed By: #### PT, CMP, MG1, PHOS, URIC, CBCDIF ####[facility] [address] [employer] [place], [place] [phone] Glucose [Mass/Vol] 123 74-99 mg/dL High 11-07-2019 [facility] (06870) Comment: Result Comment: The [place] Diabetes Association (ADA) provides guidance for cutoff values for fasting glucose and random glucose. The ADA defines fasting as no caloric intake for at least 8 hours. Fas ting plasma glucose results between 100 to 125 mg/dL indicate increased risk for diabetes (prediabetes). Fasting plasma glucose resul ts greater than or equal to 126 mg/dL meet the criteria for diagnosis of diabetes. In the absence of unequivocal hyperglycemia, results should be confirmed by repeat testing. In a patient with classic s ymptoms of hyperglycemia or hyperglycemic crisis, random plasma glucose results greater than or equal to 200 mg/dL meet the criteria for diagnosis of diabetes. Reference: Standards of [facility] Care in Diabetes 2016, [place] [employer] Association. Diabetes Care. 2016.39(Suppl 1). Performed By: #### PT, CMP, MG1, PHOS, URIC, CBCDIF ####[facility] [address] [place], [place] [phone] Potassium [Moles/Vol] 3.9 3.7-5.1 mmol/L Normal 11-07-19 [facility] (75156) Comment: Performed By: #### PT, CMP, MG1, PHOS, URIC, CBCDIF ####[facility] [place], [place] [phone] Protein [Mass/Vol] 5.0 6.3-8.0 g/dL Low 11-07-2019 [facility] (09850) Comment: Performed By: #### PT, CMP, MG1, PHOS, URIC, CBCDIF ####[place] [address] [place] [phone] Sodium [Moles/Vol] 142 136-144 mmol/L Normal 11-07-2019 [facility] (94851) Comment: Performed By: #### PT, CMP, MG1, PHOS, URIC, CBCDIF ####[place] [address] [place] [phone] Urea nitrogen [Mass/Vol] 37 9-24 mg/dL High 11-06 [facility] (09131) Comment: Performed By: #### PT, CMP, MG1, PHOS, URIC, CBCDIF ####[place] [address] [place] [phone] cbc and differential on 2019-11-07 Abs Baso 0.00 <0.11 k/uL Normal 11-07-2019 [facility] (77168) Comment: Performed By: #### PT, CMP, MG1, PHOS, URIC, CBCDIF ####[place] [address] [place] [phone] Abs Canadian 0.28 <0.87 k/uL Normal 11-07-2019 [facility] (25383) Comment: Performed By: #### PT, CMP, MG1, PHOS, URIC, CBCDIF ####[place] [address] [place] [phone] Abs Neut 8.02 1.45-7.50 k/uL High 11-07-2019 [facility] (60907) Comment: Performed By: #### PT, CMP, MG1, PHOS, URIC, CBCDIF ####[facility] [place], [place] [phone] Acanthocytes Few Normal 11-07-2019 [facility] (51889) Comment: Performed By: #### PT, CMP, MG1, PHOS, URIC, CBCDIF ####[place] [address] [place], [place] [phone] Anisocytosis Ql (Bld) Present Normal 11-07-19 [facility] (81585) Comment: Performed By: #### PT, CMP, MG1, PHOS, URIC, CBCDIF ####[place] [address] [place], [place] [phone] Basophils/100 WBC (Bld) 0.0 % Normal 2019 [facility] (48368) Comment: Performed By: #### PT, CMP, MG1, PHOS, URIC, CBCDIF ####[place] [address] [place], [place] [phone] DTYPE Manual Diff Normal 11-07-2019 [facility] (01279) Comment: Performed By: #### PT, CMP, MG1, PHOS, URIC, CBCDIF ####[place] [address] [place], [place] [phone] Eosinophils (Bld) [#/Vol] 0.00 <0.46 k/uL Normal 10-13 [facility] (61365) Comment: Performed By: #### PT, CMP, MG1, PHOS, URIC, CBCDIF ####[place] [address] [place], [place] [phone] Eosinophils/100 WBC (Bld) 0.0 % Normal 10-13 [facility] (71727) Comment: Performed By: #### PT, CMP, MG1, PHOS, URIC, CBCDIF ####[facility] [address] [place], [place] [phone] Erythrocyte distribution 27.9 11.5-15.0 % High 11-06 [facility] width (RBC) [Ratio] [place] (78173) Comment: Performed By: #### PT, CMP, MG1, PHOS, URIC, CBCDIF ####[facility] [place], [place] [phone] Hematocrit (Bld) [Volume 26.0 39.0-51.0 % Low 11-06 [facility] fraction] (31657) Comment: Performed By: #### PT, CMP, MG1, PHOS, URIC, CBCDIF ####[facility] [place], [place] [phone] Hemoglobin (Bld) 7.7 13.0-17.0 g/dL Low 11-07-2019 [facility] [Mass/Vol] [place] (22711) Comment: Performed By: #### PT, CMP, MG1, PHOS, URIC, CBCDIF ####[facility] [address] [place], [place] [phone] Lymphocytes (Bld) [#/Vol] 1.80 1.00-4.00 k/uL Normal 10-13 [facility] (23049) Comment: Performed By: #### PT, CMP, MG1, PHOS, URIC, CBCDIF ####[facility] [address] [place], [place] [phone] Lymphocytes/100 WBC (Bld) 16.7 % Normal 10-13 [facility] (12971) Comment: Performed By: #### PT, CMP, MG1, PHOS, URIC, CBCDIF ####[facility] [address] [place], [place] [phone] MCH (RBC) [Entitic mass] 24.4 26.0-34.0 pG Low 11-06 [facility] (15799) Comment: Performed By: #### PT, CMP, MG1, PHOS, URIC, CBCDIF ####[facility] [place], [place] [phone] MCHC (RBC) [Mass/Vol] 29.6 30.5-36.0 g/dL Low 11-07-19 [facility] (35755) Comment: Performed By: #### PT, CMP, MG1, PHOS, URIC, CBCDIF ####[facility] [address] [place], [place] [phone] MCV (RBC) [Entitic vol] 82.5 80.0-100.0 fL Normal 11-06 [facility] (52040) Comment: Performed By: #### PT, CMP, MG1, PHOS, URIC, CBCDIF ####[facility] [place] [phone] Pegram% 1.8 % Normal 11-07-2019 [facility] (53688) Comment: Performed By: #### PT, CMP, MG1, PHOS, URIC, CBCDIF ####[facility] [place] [phone] Monocytes/100 WBC (Bld) 2.6 % Normal 2019 [facility] (82986) Comment: Performed By: #### PT, CMP, MG1, PHOS, URIC, CBCDIF ####[facility] [place] [phone] Myelo% 4.4 % Normal 11-07-2019 [facility] (82354) Comment: Performed By: #### PT, CMP, MG1, PHOS, URIC, CBCDIF ####[facility] [address] [place], [place] [phone] Neutrophils/100 WBC (Bld) 74.5 % Normal 10-13 [facility] (34112) Comment: Performed By: #### PT, CMP, MG1, PHOS, URIC, CBCDIF ####[facility] [address] [place], [place] [phone] NRBCs 18 0 /100 WBC High 11-07-2019 [facility] (98360) Comment: Performed By: #### PT, CMP, MG1, PHOS, URIC, CBCDIF ####[facility] [address] [place], [place] [phone] Ovalocytes Few Normal 11-07-2019 [facility] (54890) Comment: Performed By: #### PT, CMP, MG1, PHOS, URIC, CBCDIF ####[facility] [address] [place], [place] [phone] Platelet mean <<DO NOT REPORT>> 9.0-12.7 Normal 11-07-19 20 [facility] volume (Bld) [place] (01775) [Entitic vol] Comment: Performed By: #### PT, CMP, MG1, PHOS, URIC, CBCDIF ####[facility] [place], [place] [phone] Platelets (Bld) [#/Vol] 36 150-400 k/uL Low 2019 [facility] (99850) Comment: Result Comment: Result check ed and verified No clot detected. Performed By: #### PT, CMP, MG1, PHOS, URIC, CBCDIF ####[facility] [address] [place], [place] [phone] Platelets (Bld) Platelet estimate Normal 2019 [facility] [#/Vol] decreased [facility] (15268) Comment: Performed By: #### PT, CMP, MG1, PHOS, URIC, CBCDIF ####[facility] [address] [place], [place] [phone] Polychromasia Slight Normal 11-07-2019 [facility] (03483) Comment: Performed By: #### PT, CMP, MG1, PHOS, URIC, CBCDIF ####[facility] [address] [place], [place] [phone] RBC (Bld) [#/Vol] 3.15 4.20-6.00 m/uL Low 11-07-2019 [facility] (16280) Comment: Performed By: #### PT, CMP, MG1, PHOS, URIC, CBCDIF ####[facility] [address] [place], [place] [phone] RBC Fragments Few Normal 11-07-2019 [facility] (63574) Comment: Performed By: #### PT, CMP, MG1, PHOS, URIC, CBCDIF ####[facility] [address] [place], [place] [phone] TSH Qn Present Normal 11-07-2019 [facility] (32943) Comment: Performed By: #### PT, CMP, MG1, PHOS, URIC, CBCDIF ####[facility] [place], [place] [phone] WBC (Bld) [#/Vol] 10.76 3.70-11.00 k/uL Normal 11-07-2019 [facility] (18829) Comment: Performed By: #### PT, CMP, MG1, PHOS, URIC, CBCDIF ####[facility], [place] [phone] case managem on CASE MANAGEM HNO ID: [id number] Normal 11-07-19 20 [facility] Author: Raisa JasmineRn) JUNIE Mcfarlane [place] ([id number]) Service: Care Management Author Type: Registered Nurse Type: Care Mgt Progress Note Filed: 11/07/2019 6:26 PM Note Text: CARE MANAGEMENT PROGRESS NOTE SERVICE DATE: 11/07/2019 SERVICE TIME: 5:00 PM LOS: 7 days Needs Prior to Discharge: Discharge Prescriptions;Equipment Delivery;Insurance Authorization;Discharge Transportation CM approached by Dr. May. Dr. May spoke with patient and Son Tiana about Goals of Care. They have decided to go home with Hospice. Th is CM confirmed with Saud he would like [facility] . CM placed referral. Tiana states patient will go to his own home . Tiana plans on going to patient's home tomorrow to clear out space for H ospital Bed and Home Oxygen. This CM spoke with Ro from Hospice who states they will contact son tomorrow morning. CM informed Ro Trans portation is set for 3pm tomorrow to leave [facility]. Trip [id number] . Ro states this is plenty of time to have equipment deli marco antonio so patient can be discharged tomorrow. DNR form is in front of [employer] to be completed by Ale deras. CM unsure if Hospice needs Prescription. Weekend CM please conf irm with Hospice details of prescriptions (Do they Want CC to fill pr ior to discharge, do they want sent to local pharmacy) Plan Discharge Sunday home with Hospice. Please page [place] nd Temperature Control Inspector @[phone] to coordinate and assist with discharge plann ing. If no weekend discharge, Temperature Control Inspector will reassess on Sunday for ongoing coordination of discharge plan. SIGNATURE: Raisa Mcfarlane RN PATIENT NAME: Tiana Martínez DATE: November 07, 2019 TIME: 5:00 PM PAGER/CONTACT #: [phone] CASE MANAGEM HNO ID: [id number] Normal 11-07-19 [facility] Author: CARIN Garland ([id number]) Service: Care Management Author Type: Surgical Appliance Fitter Type: Care Mgt Progress Note Filed: 11/07/2019 3:55 PM Note Text: CARE MANAGEMENT WEEKEND PLANNING NOTE DISCHARGE OR POSSIBLE DISCHARGE Date/Time: TBD Disposition: TBD Transport: Family will transport at time of discharge. Other Concerns: Weekend Temperature Control Inspector Pager #: G Building - [phone] H Building - [phone] J Building - [phone] M Building - [phone] Primary medical team to have meeting with family to discuss plan of care. Dispo planning pending family outcome. Pt will possibly need to provide choices for hospice. (Home PT vs Outpatient PT vs Hospice) Son has discussed an agency ([facility]) however [facility] team has not had plan of care meeting and no referrals has been sent. ? Pt's family will transport at time of discharge. SIGNATURE: CARIN Garland PATIENT NAME: Tiana Martínez DATE: November 07, 2019 TIME: 3:52 PM PAGER/CONTACT #: [phone] xr chest 1v frontal port on 2019-11-06 XR CHEST 1V * * *Final Report* * * Normal 11-05 [facility] FRONTAL PORT DATE OF EXAM: Nov 06 2019 1:47PM [place] ([id number]) YENY [id number] - XR CHEST 1V FRONTAL PORT / PROCEDURE REASON: Acute respiratory illness * * * * Physician Interpretation * * * * EXAMINATION: CHEST RADIOGRAPH (PORTABLE SINGLE VIEW AP) Exam Date/Time: 11/06/2019 1:47 PM Clinical History: Acute respiratory illness MQ: [id number] Comparison: 11/03/2019 RESULT: Lines, tubes, and devices: None. Lungs and pleura: Hazy opacity again noted overlying the lef t hemithorax, likely related to left upper lobe collapse, seco ndary to a neoplastic process. There is lobular appearance of the left perihilar region. An ill-defined nodular opacity overlies the right up per lobe. There is mild central pulmonary venous congestion. There may be a small left pleural effusion. Cardiomediastinal silhouette: Stable cardiomediastinal silho uette. Left hilar lymphadenopathy is not well evaluated on this examinat ion. Also noted is mild prominence of the right hilum. Other: . IMPRESSION: See result. 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Delta System: PSCKorey Transcribe Date/Time: Nov 06 2019 2:19P Dictated by : NAVA KYLE MD This examination was interpreted and the report reviewed and electronically signed by: NAVA KYLE MD on Nov 06 2019 2:20PM EST [id number] vitamin b12 on 2019 Cobalamin (Vitamin B12) 4725 075-3625 pg/mL Normal 2019 [facility] [Mass/Vol] [place] ([id number]) Comment: Performed By: #### IPFR, B12 , SERFOL ####[facility] [address] [place] [address] [phone] uric acid on 11-05 U[place] [Mass/Vol] 4.7 4.0-8.1 mg/dL Normal 11-06-2019 [facility] ([id number]) Comment: Performed By: #### CMP, URIC ####[facility] [address] [place], [place] [phone] Urate [Mass/Vol] 5.2 4.0-8.1 mg/dL Normal 11-06-2019 [facility] ([id number]) Comment: Performed By: #### PT, CMP, MG1, PHOS, URIC, CBCDIF ####[facility] [address] [place], [place] [phone] protime on PT Coag (PPP) [Time] 10.8 9.7-13.0 sec Normal 0 [facility] ([id number]) Comment: Performed By: #### PT, CMP, MG1, PHOS, URIC, CBCDIF ####[facility] [address] [place], [place] [phone] PT Coag (PPP) [Time] 1.0 0.9-1.3 s Normal 0 [facility] ([id number]) Comment: Result Comment: Vitamin K An tagonist (VKA) Therapeutic Range: INR 2 to 3 (Target INR of 2.5) Note: For patients treated w ith VKA drugs, such as warfarin, the [employer] 2012 Guideline recommends a therapeutic INR range of 2 to 3 (target INR of 2.5). This recommendation includes high-risk patients with antiphospholipid syndrome with previous arterial or venous thromboembolism, current-generation mechanical or bioprosthetic aortic heart valve replacement. Note: Patients with toll mechanic al aortic valve replacement and additional risk factors for thromboembolic events (atrial fibrillation, previous thromboembolism, LV dysfunction, hypercoagulable conditions) or an older generation mecha nical AVR (i.e., ball in-Cage) or any mechanical MVR should have a INR therapeutic range of 2.5 to 3.5 (target INR of 3). Vitaliy GH, et al. Chest 2012 , 141:7S-47S Janet RA, et al. [facility] , 70: [phone] Performed By: #### PT, CMP, MG1, PHOS, URIC, CBCDIF ####[facility] [address] [place], [place] [phone] progress on 2019-10 PROGRESS HNO ID: [id number] Normal 11-06-2019 [facility] Author: Matthew Lock ([id number]) Service: Oncology Author Type: Physician Type: Progress Notes Filed: 11/06/2019 2:49 PM Note Text: Solid Tumor Oncology 1 Progress Note Progress Note PATIENT NAME: Tiana Martínez PRIMARY SERVICE: STO1 ADMISSION DAY 10/31/2019 HOSPITAL DAY: 6 CODE STATUS: Full Tiana Martínez 79 yo with PMH Afib, NSCLC r lung s/p SBIRT 16, now with SCLC L lung. Plan for Today (11/02/2019) - monitor weights, I/O - hold chemotherapy (carbo/etoposide with dose reduction of carbo due to thrombocytopenia) - continue scheduled duonebs - consider escalating anti HTN regimen (currently on metopro lol) - transfuse for Hgb < 7 - f/u CXR - consider whole brain irradiation - f/u thrombocytopenia workup Interval Events - HTN overnight (SBP 170s), s/p captopril - s/p bronch 10/03: w/ Bronchial FNA path: The malignant cell s are positive for cytokeratin AE1/3, CD56, TTF-1, INSM-1 and synaptophysin and are negative for chromogranin, c/w SCLC Denies fever, chills, palpitations, lightheadedness/dizzines s, chest pain, abdominal pain, n/v/d, pain or discomfort with urination. -complains of worsening SOB - MRI brain: No acute abnormality. ?No evidence of intracran ial parenchymal or leptomeningeal spread of disease. Diffuse osseous metastasis involving the calvarium, skull base, and visualized upper cervical spine w ithout extraosseous extension of neoplasm Vital Signs (last filed) Range in last 24h Temp: 36.6 ?C (97.8 ?F) (11/06/19 0508) Temp Min: 36.3 ?C (9 7.4 ?F) Max: 36.7 ?C (98.1 ?F) Pulse: 91 (11/06/19 0508) Pulse Min: 81 Max: 104 BP: 173/79 (11/06/19 0508) BP Min: 139/67 Max: 182/93 Resp: 18 (11/06/19 0508) Resp Min: 18 Max: 20 SpO2: 99 % (11/06/19507) SpO2 Min: 97 % Max: 100 % O2 Therapy: Nasal Cannula (11/06/19507) Liters: 2 (11/06/19507) - Hgb pending Hemoglobin (g/dL) Date Value 11/06/2019 6.9 (L) 11/05/2019 7.4 (L) 11/05/2019 7.1 (L) - Platelets pending Platelet Count (k/uL) Date Value 11/06/2019 52 (L) 11/05/2019 58 (L) 11/05/2019 62 (L) 11/05/2019 Unable to report 11/04/2019 87 (L) 11/04/2019 99 (L) 11/03/2019 31 (L) - WBC elevated this AM WBC (k/uL) Date Value 11/06/2019 11.51 (H) 11/05/2019 11.26 (H) 11/05/2019 11.14 (H) Physical Exam BP 173/79 Pulse 91 Temp 36.6 ?C (97.8 ?F) (Oral) Resp 18 Ht 169 cm (5' 6.54) Wt 93.8 kg (206 lb 12.8 oz) SpO2 99% BMI 32.84 kg/m? General appearance: in NAD, speaking in full coherent senten dhiraj, nondiaphoretic, cooperative with appropriate affect HEENT: anicteric sclera, EOMI, MMM. Non-cyanotic lips. Tongu e and posterior oropharynx normal. Teeth normal. Respiratory: Diminished breath sounds in NORY, LIL, LLL, Diff use expiratory wheezes. Diaphragmatic excursion and chest wall symmetry myriam ear equal and normal. No accessory muscle use. On 2L O2. Cardiovascular: RRR without gallop, or rubs or murmur. Non-d isplaced PMI. No parasternal heave. No carotid, abdominal aortic, femoral bruits noted. Normal pedal pulses bilaterally. 2+ peripheral edema noted i n the upper or lower extremities. Normal temperature of all 4 extremitie s. Abdomen/GI: Abdomen soft, non-tender, non-distended. No mass es or organomegaly noted. No hepatojugular reflux, no ascites Extremities: No clubbing or cyanosis of fingers. No cracking , pitting or petechiae on fingers. Capillary refill <2 sec bilaterally. Musculoskeletal: Spine shows no kyphosis or scoliosis. Muscl es show no clear abnormality. Skin:No petechiae, ecchymoses, rash noted. No jaundice, no p almar erythema, no spider angiomas. Neurologic: AOx3, able to vocalize, moves all extremities,?n o asterixis Psychiatric: no abnormalities with mood with congruent affec t Fluid Balance Intake/Output Summary (Last 24 hours) at 11/06/2019 0905 Last data filed at 11/06/2019 0732 Gross per 24 hour Intake 600 ml Output 1700 ml Net -1100 ml Last Weight: 93.8 kg (206 lb 12.8 oz) (11/06/19 0800) Admit Weight: 91.6 kg (202 lb) (11/04/19 1341) Intake/Output 11/02/19 0700 - 11/03/19 0659 11/03/19 0700 - 11/04/19 0659 11/04/19 0700 - 11/05/19 0659 11/05/19 0700 - 11/06/19 0659 11/06/19 0700 - 11/07/19 0659 Intake (ml) 1360 1668 1260 960 ? Output (ml) 2800 6666 317 7658 200 Net (ml) -1440 393 835 -740 -200 Labs CBC: Recent Labs 11/06/19 0454 11/05/19 2235 11/05/19 1545 11/05/19 0511 11/04/19 1647 11/04/19 0615 11/03/19 2038 11/03/19 0115 11/01/19 0330 10/31/19 1357 WBC 11.51* 11.26* 11.14* Unable to report 10.71 11.16* 9.85 10.08 < > 8.48 9.17 HB 6.9* 7.4* 7.1* Unable to report 7.9* 7.5* 7.7* 7.8* < > 6 .4* 7.2* HCT 23.6* 25.5* 23.9* Unable to report 27.9* 26.0* 25.8* 26. 6* < > 22.6* 25.4* PLT 52* 58* 62* Unable to report 87* 99* 31* 33* < > 42* 41* MCV 83.7 83.3 83.0 Unable to report 83.3 83.3 80.6 80.9 < > 81.6 80.9 RDWCV 29.5* 30.2* 29.8* Unable to report 29.9* 29.7* 29.3* 2 9.0* < > 29.2* 29.2* NEUTP -- -- -- -- -- -- -- -- -- 70.0 73.0 ABSNEUT -- -- -- -- -- -- -- -- -- 5.94 6.69 LYMPHP -- -- -- -- -- -- -- -- -- 22.0 19.0 MONOP -- -- -- -- -- -- -- -- -- 5.0 4.0 EODINP -- -- -- -- -- -- -- -- -- 0.0 1.0 < > = values in this interval not displayed. COAG: Recent Labs 11/06/19 0454 11/05/19 0511 11/04/19 0615 11/03/19 0115 11/01/19 0330 10/31/19 1357 APTT -- -- -- -- 26.2 -- INR 1.0 1.0 1.0 1.0 -- 1.0 BMP: Recent Labs 11/06/19 0454 11/05/19 1545 11/03/19 1252 11/03/19 0115 11/02/19 0544 11/01/19 0330 10/31/19 1357 10/31/19 1343 GLUC 150* 181* 142* 179* 144* 149* 145* -- NA 141 143 146* 141 143 146* 146* -- K 3.7 3.5* 3.2* 3.0* 3.3* 3.4* 3.4* -- CHLOR 102 101 102 100 103 105 107* -- CO2 28 28 29 27 24 29 28 31* ANION 11 14 15 14 16 12 11 -- BUN 34* 37* 34* 35* 38* 39* 41* -- CREAT 1.24* 1.33* 1.17 1.26* 1.18 1.40* 1.18 -- CHEM: Recent Labs 11/06/19 0454 11/05/19 1545 11/05/19 0511 11/04/19 0615 11/03/19 1252 11/03/19 0115 11/02/19 0544 11/01/19 0330 10/31/19 1357 ALB 2.9* 3.1* -- -- -- -- -- -- 3.0* TPROT 5.4* 5.4* -- -- -- -- -- -- 5.5* CA 9.5 9.7 -- -- 9.7 9.8 9.5 9.5 9.4 MG 2.9* -- 2.9* 2.9* -- 2.5* -- -- -- HEPATIC: Recent Labs 11/06/194 11/05/19 1545 10/31/19 1357 ALKPHOS 146* 140* 108 ALT 69* 61* 56* AST 216* 207* 141* TBILI 0.6 0.5 0.4 Medications Scheduled NaCl 0.9%, 10 mL, q 12 H allopurinol, 100 mg, TID metoprolol tartrate (short acting), 12.5 mg, q 12 H magnesium oxide, 800 mg, DAILY sodium chloride 7% solution, 4 mL, BID clotrimazole, 10 mg, 5X/DAY salt and soda, 5-10 mL, q 6 H acetylcysteine, 200 mg, q 8 H guaiFENesin, 600 mg, q 12 H latanoprost, 1 Drop, AT BEDTIME atorvastatin, 40 mg, AT BEDTIME therapeutic multivitamin, 1 tablet, DAILY rOPINIRole, 3 mg, TID NaCl 0.9%, 3-5 mL, q 12 H melatonin, 3 mg, AT BEDTIME PRN NaCl 0.9%, 20 mL, PRN iv contrast, , DIRECTED PRN aquaphor/nystatin ointment/cholestyramine 1:1:1, , PRN albuterol, 2.5 mg, q 4 H PRN ondansetron (PF), 4 mg, q 6 H PRN metoclopramide HCl, 10 mg, q 6 H PRN polyethylene glycol 3350, 17 g, DAILY PRN Infusion Medications: NaCl 0.9%, Last Rate: 150 mL/hr (11/05/19 1600) NaCl 0.9%, Last Rate: 10 mL/hr (11/04/19 2346) Micro BCx 10/[address] 12/24/2018 Spiculated right upper lobe subpleural nodule is mildly larg er and more consolidative in comparison to prior scans, and suspicious f or recurrence/growth. ?Notably, the nodule demonstrated residua l mild FDG avidity on a remote PET/CT from 01/15/2018 and previously se en groundglass components of the nodule are now replaced with s olid components. Interval resolution of diffuse centrilobular nodules and per ibronchial groundglass opacities compatible with resolved infection or aspiration. Stable 3 mm indeterminate left upper lobe nodule. ?New clust er of 2-4 mm centrilobular nodules in the RLL could be infectious/inflamm atory. ? Follow-up is suggested. ? CTA 10/31/2019 no pulmonary embolism arterial dissection. Spi culated nodule in the right upper lobe measuring approximately 1.5 cm, with a large loculated left hilar mass with atelectasis in the lingula an d left upper lobe, and a perihilar mass encasing the left pulmonary arter y, measuring 6.8 x 4.9 x 6.6 cm in size. Enlargement of mediastinal nodes , the largest measuring approximately 5.7 x 3.4 cm. Oncologic History - Right upper lobe non-small cell lung cancer (stage Ia) s/p SBRT (50 Gy in 5 fx) completed 03/22/16 -The patient continued to be monitored by CT, and showed no evidence of disease but a visible CT density continued to increase sligh tly over the previous CTs, though negative on PET uptake, concerning for post SBRT change vs progression of PET negative neoplasm -Was last seen by Dr. Sanchez, eventually on 04/23/2019 whe n he recommended CT-guided biopsy of this possible mass. The biop sy from 05/20/2019 showed focally infarcted tissue without granulomas or malignant cells. Chest CTA 10/30 showed new large loculated left hilar mass wi th atelectasis in the lingula and left upper lobe, and a perihilar mass enc asing the left pulmonary artery, measuring 6.8 x 4.9 x 6.6 cm in size. Also noted was enlargement of mediastinal nodes, the largest measuring appr oximately 5.7 x 3.4 cm. Assessment and Plan ? 79 year old male PMH of Right upper lobe non-small cell lung cancer (stage Ia) s/p SBRT (50 Gy in 5 fx) completed 03/29, who presented with SOB, found to have a large loculated left hilar mass with atelect asis in the lingula and left upper lobe, and encasing the left pulmonary artery, with possible postobstructive pneumonitis. ? 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 The NORY is occluded and not amenable to bronchoscopic interventi on - s/p Endobronchial needle aspirates and endobronchial biops ies - Rapid On-Site Evaluation (CORY): Preliminary cytology of t he lesion in the left mainstem bronchus was suggestive of malignancy, pos sibly small cell carcinoma - final EBUS path: Small cell carcinoma Plan: - inpatient chemotherapy - f/u rad onc recs - consider whole brain radiation for prophylaxis ? ? # COPD - duoneb PRN and scheduled q4h ? ? # thrombocytopenia Platelet Count (k/uL) Date Value 11/06/2019 52 (L) 11/05/2019 58 (L) 11/05/2019 62 (L) 11/05/2019 Unable to report 11/04/2019 87 (L) 11/04/2019 99 (L) 11/03/2019 31 (L) unclear precipitating factor, likely in the setting of bone marrow infiltration from SCLC Pathologist review: Normocytic Anemia With Moderate Polychro masia Thrombocytopenia S/p 1 unit platelets for bronch Plan: CTM Consider heme consult hold AC ? # anemia Hemoglobin (g/dL) Date Value 11/06/2019 6.9 (L) 11/05/2019 7.4 (L) 11/05/2019 7.1 (L) s/p 1 unit pRBC transfusion 10/31, no overt sign of bleeding DIC labs unrevealing (elevated fibrinogen, d dimer but CT PE was negative) Iron studies unrevealing : Iron, TIBC WNL unclear precipitating factor, likely in the setting of bone marrow infiltration from SCLC Plan: CTM Daily CBC Consider heme consult, bone marrow biopsy? ? ? # CARO -resolved 2/2 aggressive diuresis due to orthopnea, PND Plan: Strict I/O Hold diuresis # pAfib AMET called for afib with RVR HR 156 overnight of 11/02 AMET called, given 5 mg IV metoprolol x2, spontaneously converted to NSR Currently on 25 mg metoprolol tartrate BID Home: metoprolol succinate, apixiban 5 mg BID Plan: rate control with carvedilol, uptitrate as neeeded Hold AC due to thrombocytopenia # postobstructive pneumonia/pneumonitis -resolved # hypoxia CTA 10/30 w/ new large loculated left hilar mass with atelect asis in the lingula and left upper lobe, and a perihilar mass encasing t he left pulmonary artery, measuring 6.8 x 4.9 x 6.6 cm in size. ?Enl argement of mediastinal nodes, the largest measuring approximately 5.7 x 3.4 cm.? Strep pneumo urine AG neg Covid-19 neg RSV panel, Legionella Ag urine negative Completed 7 day course of Zosyn Plan: Continuous pulse oxymetry Rounding Checklist: Diet/Nutrition: heart healthy Mobility status: mobile VTE Prophylaxis: deferred due to thrombocytopenia Pain management: tylenol Glycemic control: SSI Code Status: full Dispo Planning: pending 10/31/19 1215 vte pharmacologic prophylaxis contraindicated (ky,wi) 10/31/19 1215 pneumatic compression stockings (ky,wi) 10/31/19 1215 activity - mobilize patient (ky,wi) SIGNATURE: Skylar Seay MD PHD PGY-1 PATIENT NAME: Tiana medina DATE: 11/06/2019 TIME: 7:58 AM PAGER: [phone] Note: These recommendations are not final until staffed by max harris HEMATOLOGY/MEDICAL ONCOLOGY/[facility] BRAIN TUMOR [place] STA FF: STAFF PHYSICIAN NOTE OF PERSONAL INVOLVEMENT IN CARE I have reviewed the progress note obtained and documented by the Resident and I personally participated in the kelley components. I have discussed the case and management of the patient's care with the Resident. The following comments revise or confirm relevant kelley components of the Re sident's note. IMPRESSION/PLAN: Unable to give chemo due to thrombocytopenia. Cause not obvi ous: reversible or not? This may be due to bone marrow involvemen t. Will ask Heme consult. If we cannot reverse this, we may need to hold chemo and give palliative radiation [place] [id number] plan of care on PLAN OF CARE HNO ID: [id number] Normal 11-06-19 [facility] Author: Levy (Res) Yadira Lock ([id number]) Service: Oncology Author Type: Resident Type: Plan of Care Filed: 11/06/2019 6:12 PM Note Text: Point of Contact Update Discussed with patient at bedside on rounds, and by phone wi th son to discuss updates regarding plan of care. In both discussions, covered the fact that Mr. Worleys blood counts remain low (cytopenias) and there is continued workup for his persistent thrombocytopenia. At this time, it remains uncertain (to doubtful) that Mr. Royer laguerre is in an overall state where chemotherapy (previously contemplated ca rboplatin and etoposide initiation) could provide more benefit than harm, and thus his plan for chemotherapy has been placed on hold. In the interim, a CBC with full pathology review is in proce ss, and Hematology consultation is underway to assist in evaluation of persistent anemia and thrombocytopenia. Mr. Martínez Jr inquired about the possibility of a concurrent blood cancer (leukemia or lymphoma) given the persistently low blood coun ts. While not impossible, we discussed that it would be quite possible (an d probable) that his bicytopenia may very well be due to the metastatic extent of his small cell lung cancer. However, given the need to fully evaluate the persistent thr ombocytopenia and consider additional reversible causes, a full workup rem ains underway. Finally, we discussed and re-iterated the prospect of a futu re discussion wherein it is determined that Mr. Martínez's (patient) functio nal status may be preclusive of safe administration of chemotherapy, in [facility] case discussions pertaining to goals of care, palliative efforts (such as radiation), and symptom management may be more appropriate. Will plan to discuss further with patient and son at bedside tomorrow (Monday 11/06) when Tiana Gutierrez returns to bedside to visit. Levy May MD phosphorus on 11-05 Phosphate [Mass/Vol] 3.4 2.7-4.8 mg/dL Normal 0 [facility] ([id number]) Comment: Performed By: #### PT, CMP, MG1, PHOS, URIC, CBCDIF ####[facility] [address], [place] [phone] path interp w cbcdif on 2019-11-06 Abs Baso 0.00 <0.11 k/uL Normal 11-06-2019 [facility] ([id number]) Comment: Performed By: #### CITPLT, S LATESHA ####[address] [place] [address] [phone] Abs [place] 0.11 <0.87 k/uL Normal 11-06-2019 [facility] (83084) Comment: Performed By: #### CITPLT, S LATESHA ####[place] [address] [place] [place] [address] Abs Neut 8.28 1.45-7.50 k/uL High 11-06-2019 [facility] (52173) Comment: Performed By: #### CITPLT, S LATESHA ####[place] [address] [place] [address] [phone] Absolute nRBC 0.97 <0.01 k/uL High 11-06-2019 [facility] (29180) Comment: Performed By: #### CITPLT, S LATESHA ####[place] [address] [place] [address] [phone] ANC(includeSEG+BAND) 8.28 k/uL Normal 0 [facility] (68237) Comment: Performed By: #### CITPLT, S LATESHA ####[facility] [place] [address] [phone] Anisocytosis Ql (Bld) Present Normal 11-06-19 [facility] (92640) Comment: Performed By: #### CITPLT, S LATESHA ####[facility] [address] [phone] Basophils/100 WBC (Bld) 0.0 % Normal 2019 [facility] (25811) Comment: Performed By: #### CITPLT, S LATESHA ####[facility] [address] [address] [phone] DTYPE Manual Diff Normal 11-06-2019 [facility] (90946) Comment: Performed By: #### CITPLT, S LATESHA ####[address] [place] [address] [phone] Eosinophils (Bld) [#/Vol] 0.00 <0.46 k/uL Normal 10-13 [facility] (81522) Comment: Performed By: #### CITPLT, S LATESHA ####[place] [address] [place] [address] [address] [phone] Eosinophils/100 WBC (Bld) 0.0 % Normal 10-13 [facility] (19921) Comment: Performed By: #### CITPLT, S LATESHA ####[place] [address] [place] [address] [phone] Erythrocyte distribution 27.1 11.5-15.0 % High 11-05 [facility] width (RBC) [Ratio] [place] (81456) Comment: Performed By: #### CITPLT, S LATESHA ####[facility] [address] [phone] Hematocrit (Bld) [Volume 26.8 39.0-51.0 % Low 11-05 [facility] (63849) Comment: Performed By: #### CITPLT, S LATESHA ####[place] [address] [place] [place] [address] [phone] Hemoglobin (Bld) 8.1 13.0-17.0 g/dL Low 11-06-2019 [facility] [Mass/Vol] [place] (39531) Comment: Performed By: #### CITPLLittle S LATESHA ####[address] [place] [address] [phone] Lymphocytes (Bld) [#/Vol] 1.18 1.00-4.00 k/uL Normal 10-13 [facility] (81029) Comment: Performed By: #### CITPLLittle S LATESHA ####[address] [place] [address] [phone] Lymphocytes/100 WBC (Bld) 11.0 % Normal 10-13 [facility] (53388) Comment: Performed By: #### CITPLT S LATESHA ####[place] [address] [phone] MCH (RBC) [Entitic mass] 24.8 26.0-34.0 pG Low 11-05 [facility] (74701) Comment: Performed By: #### CITPLT, S LATESHA ####[place] [address] [phone] MCHC (RBC) [Mass/Vol] 30.2 30.5-36.0 g/dL Low 11-06-19 [facility] (73168) Comment: Performed By: #### CITPLT, S LATESHA ####[address] [place] [address] [phone] MCV (RBC) [Entitic vol] 82.2 80.0-100.0 fL Normal 11-05 [facility] (36591) Comment: Performed By: #### CITPLT S LATESHA ####[address] [place] [address] [phone] Monocytes/100 WBC (Bld) 1.0 % Normal 2019 [facility] (69008) Comment: Performed By: #### CITPLT, S LATESHA ####[place] [address] [address] [place] [address] [phone] Myelo% 9.0 % Normal 11-06-2019 [facility] (61531) Comment: Performed By: #### CITPLT, S LATESHA ####[place] [address] [address] [address] [phone] Neutrophils/100 WBC (Bld) 77.0 % Normal 10-13 [facility] ([id number]) Comment: Result Comment: See Patholog ist Interpretation Performed By: #### CITPLT, S LATESHA ####[address] [place] [address] [phone] NRBCs 9 0 /100 WBC High 11-06-2019 [facility] (23273) Comment: Performed By: #### CITPLT, S LATESHA ####[address] [place] [address] [phone] Ovalocytes Few Normal 11-06-2019 [facility] ([id number]) Comment: Performed By: #### CITPLT, S LATESHA ####[address] [place] [address] [phone] Pathologist Interp SEE COMMENT Normal 0 [facility] ([id number]) Comment: Result Comment: Normocytic A nemia With Moderate Polychromasia Thrombocytopenia Performed By: #### CITPLT, S LATESHA ####[address] [place] [address] [phone] Pathologist: Reviewed by Maria L De La Fuente 11-05 [facility] MD Freddie PhD ([id number]) [place] ([id number]) Comment: Performed By: #### CITPLT, S ALTESHA ####[facility] [address] [address] [phone] Plasma cell% 1.0 % Normal 11-06-2019 [facility] (07025) Comment: Performed By: #### CITPLT, S LATESHA ####[facility] [address] [place] [address] [phone] Platelet mean <<DO NOT REPORT>> 9.0-12.7 Normal 11-06-19 20 [facility] volume (Bld) [facility] nd ([id number]) [Entitic vol] Comment: Performed By: #### CITPLT, S LATESHA ####[place] [address] [place] [address] Platelets (Bld) [#/Vol] 43 150-400 k/uL Low 2019 [facility] (16966) Comment: Result Comment: Result check ed and verified No clot detected. Platelet count confirmed by manual review of peripheral blood smear. Performed By: #### CITPLT, S LATESHA ####[place] [address] [place] [address] Platelets (Bld) Platelet estimate Normal 2019 [facility] [#/Vol] decreased [facility] (93942) Comment: Performed By: #### CITPLT, S LATESHA ####[facility] [place] [address] Polychromasia Moderate Normal 11-06-2019 [facility] (95270) Comment: Performed By: #### CITPLT, S LATESHA ####[facility] [place] [address] Promyl% 1.0 % Normal 11-06-2019 [facility] ([id number]) Comment: Performed By: #### CITPLT, S LATESHA ####[place] [address] [address] [phone] RBC (Bld) [#/Vol] 3.26 4.20-6.00 m/uL Low 11-06-2019 [facility] ([id number]) Comment: Performed By: #### JABARI S LATESHA ####[place] [address] [place] [address] [phone] RBC Fragments Few Normal 11-06-2019 [facility] (80907) Comment: Performed By: #### CITPLLittle S LATESHA ####[address] [place] [address] [phone] Spherocytes Few Normal 11-06-2019 [facility] (46194) Comment: Performed By: #### JABARI S LATESHA ####[place] [address] [place] [address] [phone] TSH Qn Present Normal 11-06-2019 [facility] (04212) Comment: Performed By: #### CITHALEY S LATESHA ####[place] [address] [place] [address] [phone] WBC (Bld) [#/Vol] 10.75 3.70-11.00 k/uL Normal 11-06-2019 [facility] (60080) Comment: Performed By: #### CITHALEY S LATESHA ####[place] [address] [phone] nursing prog on NURSING HNO ID: [id number] Normal 11-06-2019 [place] PROG Author: Loreta (Rn) [facility] Service: ? [place] Author Type: Registered Nurse ([id number]) Type: Nursing Progress Note Filed: 11/06/2019 5:22 AM Note Text: Nursing Progress Note Patient Name: Tiana Martínez [id number] Daily Note: 11/05/19 2210: pt BP 182/93 automatic an 174/88 manual. Pt denies sym ptoms. call center receptionist notified. Captopril ordered and administered per 11/06/19 0301: pt reports feeling more short of breath and cough has increased in frequency. He is still coughing up moderate amount. Upon ass essment, pt expiratory wheezing has worsened. Pt desatting to 88% on 2L, oxygen increased to 3L. RT paged for PRN albuterol breathing treatm ent. call center receptionist notified and at bedside. No new orders at this time 0508: Pt BP 173/79, pt denies symptoms. call center receptionist notified. No new orders at this time This note was completed by: Loreta Smith RN magnesium on 2019-11-05 Magnesium [Mass/Vol] 2.9 1.7-2.3 mg/dL High 0 [facility] ([id number]) Comment: Performed By: #### PT, CMP, MG1, PHOS, URIC, CBCDIF ####[facility] [address], [place] [phone] imm plt frac on Imm Plt Frac 7.60 0.9-7.2 % High 11-06-2019 [facility] (06963) Comment: Performed By: #### IPFR, B12 , SERFOL ####[facility] [address] [place], [place] [phone] folate, serum on 31-10-24 Folate [Mass/Vol] >20.0 >4.7 ng/mL Normal 11-06-2019 [facility] ([id number]) Comment: Result Comment: A result of > 20 ng/mL is not necessarily indicative of a pathologic o r treatable condition: it reflects a soriano itation of the test methodology. Assay reference range: 4.8 t o 24.2 ng/mL. Suitable for detection of fo late deficiency. Reference: Folate III (Folate III) [pac kage insert V 2.0 [place]]. [facility], [place], [place]: March 2015. Performed By: #### IPFR, B12 , SERFOL ####[facility] [address] [place] [address] [phone] consult on CONSULT HNO ID: [id number] Normal 11-06-2019 [facility] Author: Nancy [facility] ([id number]) Service: Hematology/Oncology Author Type: Physician Type: Consults Filed: 11/06/2019 8:59 PM Note Text: CLINICAL CONSULTATION NOTE Hematologic Oncology and Blood Disorders PATIENT NAME: Tiana Martínez DATE OF SERVICE: November 06, 2019 REASON FOR CONSULT: bicytopenia REVIEW OF HEME-ONC HISTORY: 79 year old male with a PMH significant for COPD, NSCLC (Rig ht upper lobe (stage Ia) s/p SBRT (50 Gy in 5 fx) completed 03/22/16), Afib , type 2 DM, SCC of skin and thyroid. He presented with dyspnea, noted to have a large lung mass o n the left side and multiple ?metastatic lesions. BAL and biopsy confir m small cell lung cancer. Heme is consulted for bicytopenia. Last normal Hb 15.7 (2015), May 2019 12.6, but at admission on 10/30 was 7.2, hypochromic and high RDW suggesting anisocytosis, previ ously these were normal. Increased nRBCs as well, which is new. Retic 3. 7%, 117K. Iron 45, ferritin 62.5, TIBC 243, Tsat 19% Creat 1.2, GFR ~50s Hapto 189, LD ? 'Extensive mets in the bone marrow' on PET, in addition to l iver mets, adenopathy. No splenomegaly Plt count WNL even in May 2019. LFTs deranged, with evidence of liver disease. Fib 526, d-dimer 840, PTT 26.6, PT 10.4 Transfused 2U RBCs and 2U platelets (for procedure) Pt himself reports no ongoing blood loss prior to current ad mission. Rarely he has hemorrhoidal bleeding. He had a fall from a ch air in his house and notes some bruising on the arms from that. REVIEW OF SYSTEMS Ten systems reviewed and negative except f or those recorded in the HPI. 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 - Diverticulosis of colon (without mention of hemorrhage) - DM (diabetes mellitus) (HCC) - Hemorrhage of gastrointestinal tract, unspecified - Hypercholesteremia - Lung cancer (HCC) - Sebaceous cyst knee - Sebaceous cyst arm pit - Sebaceous cyst back PAST SURGICAL HISTORY Procedure Laterality Date - COLONOSCOP W/ OR W/O BRSH SPEC 06/14/07 [facility] inpt - MIDLINE INSERTION/CONSULT 11/06/2019 FAMILY HISTORY Problem Relation Age of Onset - Emphysema Mother - Heart disease Mother - Hypertension Mother - Stroke Mother - Heart Father - Alcohol/Drug Father - Hypertension Father - Stroke Father - Breast Cancer Sister - None Sister Social History Tobacco Use - Smoking status: Current Every Day Smoker Packs/day: 0.50 Years: 50.00 Pack years: 25.00 Types: Cigarettes - Smokeless tobacco: Never Used Substance Use Topics - Alcohol use: No - Drug use: No ALLERGIES Allergen Reactions - Bees CURRENT MEDICATIONS: Current Facility-Administered Medications Medication Dose Route Frequency Provider Last Rate Last Dose - NaCl 0.9% 10 mL 10 mL INTRAVENOUS q 12 H Levy (Res) Yadira 10 mL at 11/06/19 1028 - NaCl 0.9% 20 mL 20 mL INTRAVENOUS PRN Levy (Res) Yadira - carvedilol 6.25 mg tab(s) (COREG) 6.25 mg ORAL BID w MEALS Skylar Brown) MD Dawood 6.25 mg at 11/06/19 1437 - benzonatate 100 mg cap(s) (TESSALON PERLE) 100 mg ORAL TID Skylar Sharif (Mckenna) MD Dawood 100 mg at 11/06/19 1437 - allopurinol 100 mg tab(s) (ZYLOPRIM) 100 mg ORAL/FEEDING T UBE TID Levy (Res) Yadira 100 mg at 11/06/19 1233 - NaCl 0.9% iv infusion 5-30 mL/hr INTRAVENOUS CONTINUOUS Ah med (Fel) MD Fco 10 mL/hr at 11/04/19 2346 10 mL/hr at 11/04/19 2 346 - aquaphor/nystatin ointment/cholestyramine 1:1:1 diaper oin tment TOPICAL PRN Katerin (Res) DO Jeffry - magnesium oxide 800 mg tab(s) (MAG-OX) 800 mg ORAL DAILY A na Chante (Res) MD Dawood 800 mg at 11/06/19 1025 - albuterol 2.5 mg /3 mL (0.083 %) 2.5 mg (PROVENTIL) 2.5 mg INHALATION q 4 H PRN Chicho (Fel) Abuqayyas 2.5 mg at 11/06/19 1332 - sodium chloride 7% solution 4 mL INHALATION ONLY 4 mL INHA LATION BID Chicho (Fel) Abuqayyas 4 mL at 11/06/19 0907 - clotrimazole 10 mg corinna (MYCELEX) 10 mg ORAL 5X/DAY Candis meek (Res) Yadira 10 mg at 11/06/19 1437 - salt and soda 5-10 mL oral liquid 5-10 mL ORAL q 6 H Skylar Sharif (Res) MD Dawood 10 mL at 11/06/19 1244 - acetylcysteine 200 mg/mL (20 %) 200 mg (MUCOMYST) 200 mg I NHALATION q 8 H Skylar Sharif (Mckenna) MD Dawood 200 mg at 11/06/19 1332 - guaiFENesin 600 mg ER tab(s) (MUCINEX) 600 mg ORAL q 12 H Skylar Sharif (Res) MD Dawood 600 mg at 11/06/19 1024 - latanoprost 0.005 % 1 Drop (XALATAN) 1 Drop BOTH EYES AT B EDTIME Skylar Sharif (Gaviota Seay MD 1 Drop at 11/04/192052 - atorvastatin 40 mg tab(s) (LIPITOR) 40 mg ORAL AT BEDTIME Levy (Res) Yadira 40 mg at 11/05/192208 - therapeutic multivitamin 1 tablet tab(s) (THERA VITAMIN) 1 tablet ORAL/FEEDING TUBE DAILY Levy (Res) Yadira 1 tablet at 1025 - rOPINIRole 3 mg tab(s) (REQUIP) 3 mg ORAL TID Kiara Garg (Re s) MD Kevin 3 mg at 11/06/19 1233 - NaCl 0.9% 3-5 mL 3-5 mL INTRAVENOUS q 12 H Skylar iglesias MD 5 mL at 11/05/192208 - ondansetron (PF) 4 mg injection (ZOFRAN) 4 mg INTRAVENOUS q 6 H PRN Skylar Seay MD - metoclopramide HCl 10 mg tab(s) (REGLAN) 10 mg ORAL q 6 H PRN Skylar Seay MD - polyethylene glycol 3350 17 g packet (MIRALAX, GLYCOLAX) 1 7 g ORAL DAILY PRN Skylar Seay MD - melatonin 3 mg tab(s) 3 mg ORAL AT BEDTIME Skylar iglesias MD 3 mg at 11/05/192207 PHYSICAL EXAMINATION: BP 154/85 Pulse 94 Temp (Src) 97.5 (Oral) Resp 18 Ht 5' 6.535 (1.69m) Wt 206 lb 12.8 oz (93.8kg) SpO2 99% BMI 32.84 kg/(m2). O2 Therapy: Nasal Cannula, Liters: 3 Gen: well-nourished, well-developed 79 year old ma le, NAD, AAOx3, cooperative throughout the interview HEENT: normocephalic, atraumatic, pharynx clear with pink mu cosa and no lesions Nodes: cervical, supraclavicular, axillary and inguinal node s non-palpable Lungs: wheezing bilaterally and crackles occasionally Heart: RRR without murmurs, gallops or rubs Abdomen: soft, non-tender without masses. No palpable HSM, B S normal Skin: no rashes or petechiae. Some arm bruising. Extremities: non-cyanotic; no edema Neuro: AAOx3, moving all 4 extremities LABS: noted above IMAGING: PET noted PERIPHERAL SMEAR: RBC fragments and significant anisocytosis WBC showing normal morphology but also a left shift, myelocy lanie and immature forms Normal morphology platelets and no clumps, some large platel ets ASSESSMENT: 79 year oldzwk-axbi-eov, male, who is currently admitted for, luz elena rodriguez. 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 Hematology is consulted for bicytopenia. Work up has ruled out hemolysis, nutritional deficiency (iro n), blood loss is still on the differential for anemia, we do not have darvin rds of GI evaluations in the past. With regard to thrombocytopenia, th e liver disease is a potential contributor, however the rest of the liver appears normal with normal function up until this new diagnosis. The main differential looking to the PET is extensive marrow involvem ent with the small cell carcinoma. This is supported by the presence of n RBCs suggesting a stressed marrow, and leukoerythroblastic pictur e on smear. This could certainly explain both cytopenias. Interestingly the WBC counts are stable. RECOMMENDATIONS: - ordered IPF and B12, folate - discussed with , the marrow is possible but wi ll likely not give us any additional information. Therefore we recommend a voiding it. Patient seen and discussed with Dr. Kruse. Attending evonne nassar to follow. Thank you for inviting us to participate in the care of your patient. We will continue to follow. Jostin Vinson MD Hematology Fellow, Hematology-Oncology [facility] 11/06/2019 3:27 PM [facility] STAFF PHYSICIAN NOTE OF PERSONAL INVOLVEMENT IN CARE I have reviewed the consult note obtained and documented by the fellow and I personally participated in the kelley components. I have disc ussed the case and management of the patient's care. The following comments revise or confirm relevant kelley components of their note. Hematology seeing pt for cytopenias in setting of new dx of SCC lung cancer. Chart, history and medications reviewed. His PET CT shows extensive marrow involvement and peripheral smear shows micr oangiopathic changes and leukoerythroblastic type changes. Case discussed with Dr Puri. It is very likely cytopenias relate to marrow inv olvement of his malignancy. We are happy to marrow if this would be help ful in having discussions regarding how to proceed but after talking with Dr Jaxson medel we will hold off. Please call us if we can be of fur ther assistance. Thank you. SIGNATURE: Nancy Kruse DO PAGER: [id number] DATE of SERVICE: November 06, 2019 TIME of SERVICE: 8:53 PM comp metabolic panel on 2019-11-06 Albumin [Mass/Vol] 3.0 3.9-4.9 g/dL Low 11-06-2019 [facility] ([id number]) Comment: Performed By: #### CMP, URIC ####[facility] [place], [place] [phone] ALP [Catalytic activity/Vol] 155 38-113 U/L High 0 11-06-2019 [facility] (11563) Comment: Performed By: #### CMP, URIC ####[place] [address] [address] [place], [place] [phone] ALT [Catalytic activity/Vol] 70 10-54 U/L High 0 11-06-2019 [facility] (23806) Comment: Performed By: #### CMP, URIC ####[place] [address] [address] [place], [place] [phone] Anion gap [Moles/Vol] 7 9-18 mmol/L Low 11-06-19 20 [facility] (53192) Comment: Performed By: #### CMP, URIC ####[address] [phone] AST [Catalytic activity/Vol] 232 14-40 U/L High 0 11-06-2019 [facility] (80406) Comment: Performed By: #### CMP, URIC ####[address] [phone] Bilirubin [Mass/Vol] 0.6 0.2-1.3 mg/dL Normal 0 [facility] (89108) Comment: Performed By: #### CMP, URIC ####[address] [phone] Calcium [Mass/Vol] 9.5 8.5-10.2 mg/dL Normal 11-06-2019 [facility] (57443) Comment: Performed By: #### CMP, URIC ####[place] [address] [place], [place] [phone] Chloride [Moles/Vol] 102 97-105 mmol/L Normal 0 [facility] (12841) Comment: Performed By: #### CMP, URIC ####[place] [address] [address] [place], [place] [phone] CO2 [Moles/Vol] 31 22-30 mmol/L High 11-06-2019 [facility] (00380) Comment: Performed By: #### CMP, URIC ####[facility] [address] [place], [place] [phone] Creatinine [Mass/Vol] 1.21 0.73-1.22 mg/dL Normal 11-06-19 20 [facility] (22454) Comment: Performed By: #### CMP, URIC ####[facility] [address] [place], [place] [phone] eGFR- Amer. >60 Normal 11-06-2019 [facility] (77658) Comment: Performed By: #### CMP, URIC ####[facility] [place], [place] [phone] GFR/1.73 sq M predicted among 58 . Normal 11-06-2019 [facility] non-blacks MDRD (S/P/Bld) [Vol (60293) rate/Area] Comment: Result Comment: eGFR (Estima alejandrina GFR) Units of measure: mL/min/1.73 meters squared eGFR is derived from the ree xpressed MDRD Study equation using the following parameters: serum creatinine, age, gender and race. The creatinine assay has been calibrated to be traceable to IDMS. An eGFR <60 mL/min/1.73m2 fo r >3 months is consistent with chronic kidney disease. Refer to KDOQI guidelines for clinical interpretation. In patients with unstable re nal function, e.g. those with acute kidney injury, the eGFR may not accurately reflect actual GFR. Performed By: #### CMP, URIC ####[facility] [address] [place], [place] [phone] Glucose [Mass/Vol] 169 74-99 mg/dL High 11-06-2019 [facility] (65173) Comment: Result Comment: The [place] Diabetes Association (ADA) provides guidance for cutoff values for fasting glucose and random glucose. The ADA defines fasting as no caloric intake for at least 8 hours. Fas ting plasma glucose results between 100 to 125 mg/dL indicate increased risk for diabetes (prediabetes). Fasting plasma glucose resul ts greater than or equal to 126 mg/dL meet the criteria for diagnosis of diabetes. In the absence of unequivocal hyperglycemia, results should be confirmed by repeat testing. In a patient with classic s ymptoms of hyperglycemia or hyperglycemic crisis, random plasma glucose results greater than or equal to 200 mg/dL meet the criteria for diagnosis of diabetes. Reference: Standards of [facility] Care in Diabetes 2016, [place] Diabetes Association. Diabetes Care. 2016.39(Suppl 1). Performed By: #### CMP, URIC ####[place] [address] [place], [place] [phone] Potassium [Moles/Vol] 3.6 3.7-5.1 mmol/L Low 11-06-19 [facility] (24072) Comment: Performed By: #### CMP, URIC ####[address] [phone] Protein [Mass/Vol] 5.3 6.3-8.0 g/dL Low 11-06-2019 [facility] (29112) Comment: Performed By: #### CMP, URIC ####[place] [address] [place], [place] [phone] Sodium [Moles/Vol] 140 136-144 mmol/L Normal 11-06-2019 [facility] (10616) Comment: Performed By: #### CMP, URIC ####[address] [place], [place] [phone] Urea nitrogen [Mass/Vol] 33 9-24 mg/dL High 11-05 [facility] (94932) Comment: Performed By: #### CMP, URIC ####[place] [address] [address] [place], [place] [phone] Albumin [Mass/Vol] 2.9 3.9-4.9 g/dL Low 11-06-2019 [facility] (09990) Comment: Performed By: #### PT, CMP, MG1, PHOS, URIC, CBCDIF ####[facility] [place], [place] [phone] ALP [Catalytic activity/Vol] 146 38-113 U/L High 0 11-06-2019 [facility] (93562) Comment: Performed By: #### PT, CMP, MG1, PHOS, URIC, CBCDIF ####[facility] [place], [place] [phone] ALT [Catalytic activity/Vol] 69 10-54 U/L High 0 11-06-2019 [facility] (20821) Comment: Performed By: #### PT, CMP, MG1, PHOS, URIC, CBCDIF ####[place] [address] [address] [place], [place] [phone] Anion gap [Moles/Vol] 11 9-18 mmol/L Normal 11-06-19 20 [facility] (62206) Comment: Performed By: #### PT, CMP, MG1, PHOS, URIC, CBCDIF ####[place] [address] [place], [place] [phone] AST [Catalytic activity/Vol] 216 14-40 U/L High 0 11-06-2019 [facility] (53643) Comment: Performed By: #### PT, CMP, MG1, PHOS, URIC, CBCDIF ####[place] [address] [address] [place], [place] [phone] Bilirubin [Mass/Vol] 0.6 0.2-1.3 mg/dL Normal 0 [facility] (56474) Comment: Performed By: #### PT, CMP, MG1, PHOS, URIC, CBCDIF ####[facility] [place], [place] [phone] Calcium [Mass/Vol] 9.5 8.5-10.2 mg/dL Normal 11-06-2019 [facility] (68508) Comment: Performed By: #### PT, CMP, MG1, PHOS, URIC, CBCDIF ####[facility] [address] [place], [place] [phone] Chloride [Moles/Vol] 102 97-105 mmol/L Normal 0 [facility] (40846) Comment: Performed By: #### PT, CMP, MG1, PHOS, URIC, CBCDIF ####[facility] [address] [place], [place] [phone] CO2 [Moles/Vol] 28 22-30 mmol/L Normal 11-06-2019 [facility] (45812) Comment: Performed By: #### PT, CMP, MG1, PHOS, URIC, CBCDIF ####[place] [address] [place], [place] [phone] Creatinine [Mass/Vol] 1.24 0.73-1.22 mg/dL High 11-06-19 20 [facility] (62582) Comment: Performed By: #### PT, CMP, MG1, PHOS, URIC, CBCDIF ####[place] [address] [address] [place], [place] [phone] eGFR- Amer. >60 Normal 11-06-2019 [facility] (93760) Comment: Performed By: #### PT, CMP, MG1, PHOS, URIC, CBCDIF ####[place] [address] [address] [place], [place] [phone] GFR/1.73 sq M predicted among 56 . Normal 11-06-2019 [facility] non-blacks MDRD (S/P/Bld) [Vol (98201) rate/Area] Comment: Result Comment: eGFR (Estima alejandrina GFR) Units of measure: mL/min/1.73 meters squared eGFR is derived from the ree xpressed MDRD Study equation using the following parameters: serum creatinine, age, gender and race. The creatinine assay has been calibrated to be traceable to IDMS. An eGFR <60 mL/min/1.73m2 fo r >3 months is consistent with chronic kidney disease. Refer to KDOQI guidelines for clinical interpretation. In patients with unstable re nal function, e.g. those with acute kidney injury, the eGFR may not accurately reflect actual GFR. Performed By: #### PT, CMP, MG1, PHOS, URIC, CBCDIF ####[facility] [address] [place], [place] [phone] Glucose [Mass/Vol] 150 74-99 mg/dL High 11-06-2019 [facility] (26789) Comment: Result Comment: The [place] Diabetes Association (ADA) provides guidance for cutoff values for fasting glucose and random glucose. The ADA defines fasting as no caloric intake for at least 8 hours. Fas ting plasma glucose results between 100 to 125 mg/dL indicate increased risk for diabetes (prediabetes). Fasting plasma glucose resul ts greater than or equal to 126 mg/dL meet the criteria for diagnosis of diabetes. In the absence of unequivocal hyperglycemia, results should be confirmed by repeat testing. In a patient with classic s ymptoms of hyperglycemia or hyperglycemic crisis, random plasma glucose results greater than or equal to 200 mg/dL meet the criteria for diagnosis of diabetes. Reference: Standards of [facility] Care in Diabetes 2016, [place] Diabetes Association. Diabetes Care. 2016.39(Suppl 1). Performed By: #### PT, CMP, MG1, PHOS, URIC, CBCDIF ####[facility] [place], [place] [phone] Potassium [Moles/Vol] 3.7 3.7-5.1 mmol/L Normal 11-06-19 [facility] (15159) Comment: Performed By: #### PT, CMP, MG1, PHOS, URIC, CBCDIF ####[facility] [place], [place] [phone] Protein [Mass/Vol] 5.4 6.3-8.0 g/dL Low 11-06-2019 [facility] (07349) Comment: Performed By: #### PT, CMP, MG1, PHOS, URIC, CBCDIF ####[facility] [address] [place] [phone] Sodium [Moles/Vol] 141 136-144 mmol/L Normal 11-06-2019 [facility] (22814) Comment: Performed By: #### PT, CMP, MG1, PHOS, URIC, CBCDIF ####[facility] [facility] [place] [phone] Urea nitrogen [Mass/Vol] 34 9-24 mg/dL High 11-05 [facility] (02645) Comment: Performed By: #### PT, CMP, MG1, PHOS, URIC, CBCDIF ####[place] [address] [place] [phone] citrated plt count on 2019-11-06 Citrated Plt Count 39 150-400 K/uL Low 11-06-2019 [facility] (73557) Comment: Result Comment: Result check ed and verified No clot detected. Platelet count confirmed by manual review of peripheral blood smear. Sodium Citrate Sample. Performed By: #### CITPLT, S LATESHA ####[place] [address] [phone] cbc and differential on 2019-11-06 Abs Baso 0.00 <0.11 k/uL Normal 11-06-2019 [facility] (02597) Comment: Performed By: #### PT, CMP, MG1, PHOS, URIC, CBCDIF ####[facility] [place] [phone] Abs Canadian 0.21 <0.87 k/uL Normal 11-06-2019 [facility] (50440) Comment: Performed By: #### PT, CMP, MG1, PHOS, URIC, CBCDIF ####[facility] [place] [phone] Abs Neut 8.97 1.45-7.50 k/uL High 11-06-2019 [facility] (17499) Comment: Performed By: #### PT, CMP, MG1, PHOS, URIC, CBCDIF ####[facility] [place], [place] [phone] Anisocytosis Ql (Bld) Present Normal 11-06-19 [facility] (74909) Comment: Performed By: #### PT, CMP, MG1, PHOS, URIC, CBCDIF ####[facility] [place], [place] [phone] Basophils/100 WBC (Bld) 0.0 % Normal 2019 [facility] (31522) Comment: Performed By: #### PT, CMP, MG1, PHOS, URIC, CBCDIF ####[place] [address] [place], [place] [phone] DTYPE Manual Diff Normal 11-06-2019 [facility] (10600) Comment: Performed By: #### PT, CMP, MG1, PHOS, URIC, CBCDIF ####[place] [address] [place] [phone] Eosinophils (Bld) [#/Vol] 0.00 <0.46 k/uL Normal 10-13 [facility] (07058) Comment: Performed By: #### PT, CMP, MG1, PHOS, URIC, CBCDIF ####[facility] [place] [phone] Eosinophils/100 WBC (Bld) 0.0 % Normal 10-13 [facility] (97691) Comment: Performed By: #### PT, CMP, MG1, PHOS, URIC, CBCDIF ####[facility] [place], [place] [phone] Erythrocyte distribution 29.5 11.5-15.0 % High 11-05 [facility] width (RBC) [Ratio] [place] (61467) Comment: Performed By: #### PT, CMP, MG1, PHOS, URIC, CBCDIF ####[facility] [place], [place] [phone] Hematocrit (Bld) [Volume 23.6 39.0-51.0 % Low 11-05 [facility] fraction] (89348) Comment: Performed By: #### PT, CMP, MG1, PHOS, URIC, CBCDIF ####[place] [address] [place], [place] [phone] Hemoglobin (Bld) 6.9 13.0-17.0 g/dL Low 11-06-2019 [facility] [Mass/Vol] [place] (03964) Comment: Performed By: #### PT, CMP, MG1, PHOS, URIC, CBCDIF ####[place] [address] [place], [place] [phone] Lymphocytes (Bld) [#/Vol] 1.32 1.00-4.00 k/uL Normal 10-13 [facility] (54319) Comment: Performed By: #### PT, CMP, MG1, PHOS, URIC, CBCDIF ####[place] [address] [place], [place] [phone] Lymphocytes/100 WBC (Bld) 11.5 % Normal 10-13 [facility] (97264) Comment: Performed By: #### PT, CMP, MG1, PHOS, URIC, CBCDIF ####[place] [address] [place], [place] [phone] MCH (RBC) [Entitic mass] 24.5 26.0-34.0 pG Low 11-05 [facility] (84177) Comment: Performed By: #### PT, CMP, MG1, PHOS, URIC, CBCDIF ####[place] [address] [place], [place] [phone] MCHC (RBC) [Mass/Vol] 29.2 30.5-36.0 g/dL Low 11-06-19 20 [facility] (07120) Comment: Performed By: #### PT, CMP, MG1, PHOS, URIC, CBCDIF ####[facility] [address] [place], [place] [phone] MCV (RBC) [Entitic vol] 83.7 80.0-100.0 fL Normal 11-05 [facility] (87938) Comment: Performed By: #### PT, CMP, MG1, PHOS, URIC, CBCDIF ####[facility] [place], [place] [phone] Pegram% 3.5 % Normal 11-06-2019 [facility] (89632) Comment: Performed By: #### PT, CMP, MG1, PHOS, URIC, CBCDIF ####[facility] [place], [place] [phone] Monocytes/100 WBC (Bld) 1.8 % Normal 2019 [facility] (12125) Comment: Performed By: #### PT, CMP, MG1, PHOS, URIC, CBCDIF ####[facility] [place], [place] [phone] Myelo% 5.3 % Normal 11-06-2019 [facility] (88011) Comment: Performed By: #### PT, CMP, MG1, PHOS, URIC, CBCDIF ####[facility] [place], [place] [phone] Neutrophils/100 WBC (Bld) 77.9 % Normal 10-13 [facility] (51963) Comment: Performed By: #### PT, CMP, MG1, PHOS, URIC, CBCDIF ####[facility] [address] [place], [place] [phone] NRBCs 12 0 /100 WBC High 11-06-2019 [facility] (49727) Comment: Performed By: #### PT, CMP, MG1, PHOS, URIC, CBCDIF ####[facility] [address] [place], [place] [phone] Ovalocytes Few Normal 11-06-2019 [facility] (75399) Comment: Performed By: #### PT, CMP, MG1, PHOS, URIC, CBCDIF ####[facility] [place], [place] [phone] Platelet mean <<DO NOT REPORT>> 9.0-12.7 Normal 11-06-19 20 [facility] volume (Bld) [place] (51782) [Entitic vol] Comment: Performed By: #### PT, CMP, MG1, PHOS, URIC, CBCDIF ####[facility] [place], [place] [phone] Platelets (Bld) Platelet estimate Normal 2019 [facility] [#/Vol] [facility] (58853) Comment: Performed By: #### PT, CMP, MG1, PHOS, URIC, CBCDIF ####[facility] [place], [place] [phone] Platelets (Bld) [#/Vol] 52 150-400 k/uL Low 2019 [facility] (90659) Comment: Result Comment: Result check ed and verified No clot detected. Performed By: #### PT, CMP, MG1, PHOS, URIC, CBCDIF ####[facility] [address] [place], [place] [phone] Polychromasia Slight Normal 11-06-2019 [facility] (74764) Comment: Performed By: #### PT, CMP, MG1, PHOS, URIC, CBCDIF ####[facility] [address] [place], [place] [phone] RBC (Bld) [#/Vol] 2.82 4.20-6.00 m/uL Low 11-06-2019 [facility] (94839) Comment: Performed By: #### PT, CMP, MG1, PHOS, URIC, CBCDIF ####[facility] [place] [phone] RBC Fragments Few Normal 11-06-2019 [facility] (77066) Comment: Performed By: #### PT, CMP, MG1, PHOS, URIC, CBCDIF ####[place] [address] [place] [phone] Spherocytes Few Normal 11-06-2019 [facility] (26877) Comment: Performed By: #### PT, CMP, MG1, PHOS, URIC, CBCDIF ####[place] [address] [place] [phone] Target Cells Few Normal 11-06-2019 [facility] (90374) Comment: Performed By: #### PT, CMP, MG1, PHOS, URIC, CBCDIF ####[place] [address] [place] [phone] TSH Qn Present Normal 11-06-2019 [facility] (41020) Comment: Performed By: #### PT, CMP, MG1, PHOS, URIC, CBCDIF ####[facility] [place] [phone] WBC (Bld) [#/Vol] 11.51 3.70-11.00 k/uL High 11-06-2019 [facility] (65755) Comment: Performed By: #### PT, CMP, MG1, PHOS, URIC, CBCDIF ####[facility] [place] [phone] Abs Baso 0.00 <0.11 k/uL Normal 11-06-2019 [facility] (58907) Comment: Performed By: #### CBCDIF ## ##[facility]ClevelJordan [place] [phone] Abs Canadian 0.20 <0.87 k/uL Normal 11-06-2019 [facility] (81065) Comment: Performed By: #### CBCDIF ## ##[place] [address]C[place], [place] [phone] Abs Neut 8.30 1.45-7.50 k/uL High 11-06-2019 [facility] (22071) Comment: Performed By: #### CBCDIF ## ##[place] [address]C[place], [place] [phone] Anisocytosis Ql (Bld) Present Normal 11-06-19 [facility] (16380) Comment: Performed By: #### CBCDIF ## ##[place] [address], [place] [phone] Basophils/100 WBC (Bld) 0.0 % Normal 2019 [facility] (85690) Comment: Performed By: #### CBCDIF ## ##[place] [address], [place] [phone] DTYPE Manual Diff Normal 11-06-2019 [facility] (41398) Comment: Performed By: #### CBCDIF ## ##[place] [address], [place] [phone] Eosinophils (Bld) [#/Vol] 0.00 <0.46 k/uL Normal 10-13 [facility] (48309) Comment: Performed By: #### CBCDIF ## ##[place] [address], [place] [phone] Eosinophils/100 WBC (Bld) 0.0 % Normal 10-13 [facility] (29746) Comment: Performed By: #### CBCDIF ## ##[place] [address], [place] [phone] Erythrocyte distribution 30.2 11.5-15.0 % High 11-05 [facility] width (RBC) [Ratio] [place] (32777) Comment: Performed By: #### CBCDIF ## ##[place] [address], [place] [phone] Hematocrit (Bld) [Volume 25.5 39.0-51.0 % Low 11-05 [facility] fraction] (57202) Comment: Performed By: #### CBCDIF ## ##[place] [address], [place] [phone] Hemoglobin (Bld) 7.4 13.0-17.0 g/dL Low 11-06-2019 [facility] [Mass/Vol] [place] (45857) Comment: Performed By: #### CBCDIF ## ##[address] [phone] Lymphocytes (Bld) [#/Vol] 1.18 1.00-4.00 k/uL Normal 10-13 [facility] (91208) Comment: Performed By: #### CBCDIF ## ##[place] [address], [place] [phone] Lymphocytes/100 WBC (Bld) 10.5 % Normal 10-13 [facility] (64250) Comment: Performed By: #### CBCDIF ## ##[address] AvK[place], [place] [phone] MCH (RBC) [Entitic mass] 24.2 26.0-34.0 pG Low 11-05 [facility] (89522) Comment: Performed By: #### CBCDIF ## ##[place] [address], [place] [phone] MCHC (RBC) [Mass/Vol] 29.0 30.5-36.0 g/dL Low 11-05- 20 [facility] (36483) Comment: Performed By: #### CBCDIF ## ##[place] [address], [place] [phone] MCV (RBC) [Entitic vol] 83.3 80.0-100.0 fL Normal 11-05 [facility] (68934) Comment: Performed By: #### CBCDIF ## ##[place] [address]Cprom[facility] hospitaland[place], [place] [phone] Pegram% 6.1 % Normal 11-06-2019 [facility] (79669) Comment: Performed By: #### CBCDIF ## ##[place] [address], [place] [phone] Monocytes/100 WBC (Bld) 1.8 % Normal 2019 [facility] (71912) Comment: Performed By: #### CBCDIF ## ##[place] [address], [place] [phone] Myelo% 7.9 % Normal 11-06-2019 [facility] (18631) Comment: Performed By: #### CBCDIF ## ##[place] [address], [place] [phone] Neutrophils/100 WBC (Bld) 73.7 % Normal 10-13 [facility] (21096) Comment: Performed By: #### CBCDIF ## ##[place] [address]Cleveland[place], [place] [phone] NRBCs 7 0 /100 WBC High 11-06-2019 [facility] (75410) Comment: Performed By: #### CBCDIF ## ##[place] [address]Cpromed[facility] def[facility] hospitaland[place], [place] [phone] Ovalocytes Few Normal 11-06-2019 [facility] (78864) Comment: Performed By: #### CBCDIF ## ##[place] [address], [place] [phone] Platelet mean <<DO NOT REPORT>> 9.0-12.7 Normal 11-06-19 [facility] volume (Bld) [facility] (07218) [Entitic vol] Comment: Performed By: #### CBCDIF ## ##[facility], [place] [phone] Platelets (Bld) Platelet estimate Normal 2019 [facility] [#/Vol] decreased [facility] (68772) Comment: Performed By: #### CBCDIF ## ##[place] [address], [place] [phone] Platelets (Bld) [#/Vol] 58 150-400 k/uL Low 2019 [facility] (88382) Comment: Result Comment: Result check ed and verified No clot detected. Performed By: #### CBCDIF ## ##[place] [address], [place] [phone] Polychromasia Slight Normal 11-06-2019 [facility] (91336) Comment: Performed By: #### CBCDIF ## ##[place] [address], [place] [phone] RBC (Bld) [#/Vol] 3.06 4.20-6.00 m/uL Low 11-06-2019 [facility] (03016) Comment: Performed By: #### CBCDIF ## ##[facility], [place] [phone] RBC Fragments Few Normal 11-06-2019 [facility] (95611) Comment: Performed By: #### CBCDIF ## ##[facility], [place] 20008538 [phone] Spherocytes Few Normal 11-06-2019 [facility] (55937) Comment: Performed By: #### CBCDIF ## ##[facility], [place] [phone] TSH Qn Present Normal 11-06-2019 [facility] (74656) Comment: Performed By: #### CBCDIF ## ##[facility] [place], [place] [phone] WBC (Bld) [#/Vol] 11.26 3.70-11.00 k/uL High 11-06-2019 [facility] (69976) Comment: Performed By: #### CBCDIF ## ##[facility] [place], [place] [phone] allied health on 31-10-24 ALLIED HEALTH HNO ID: [id number] Normal [facility] Author: Ligia Garg (Rn) JUNIE Wylie [place] ([id number]) Service: PICC Team Author Type: Registered Nurse Type: Allied Health Filed: 11/06/2019 11:58 AM Note Text: PATIENT EDUCATION TOPIC: PROCEDURE / SURGERY: Procedure/Surg savanna: midline PATIENT NAME: Tiana Martínez PATIENT LOCATION: [place] [address] READINESS TO LEARN COGNITIVE ABILITY: Alert and oriented MOTIVATION TO LEARN: Interested FAMILY SUPPORT: Unable to assess - Family not present INSTRUCTION PROVIDED TO: Patient PATIENT LEARNS BEST BY: Undecided FACTORS AFFECTING LEARNING: None PHYSICAL LIMITATIONS AFFECTING LEARNING: Limited Mobility LEARNING RESPONSE DIAGNOSIS: ADULT: iv access PATIENT/FAMILY RESPONSE: Verbalizes understanding of: POST-P ROCEDURE INSTRUCTIONS-Correct actions to take to reduce post procedur e complications METHOD OF INSTRUCTION: Verbal instruction FOLLOW-UP PLAN: Reinforce - Repeat previous content INSTRUCTIONAL AIDS USED: NA SUPPLEMENTAL MATERIAL PROVIDED TO PATIENT: Title of booklet / pamphlet: midline REFERRAL (RECOMMENDATION): Nursing Facility Electronically Signed By: Ligia Serrano RN uric acid on 11-04 Urate [Mass/Vol] 5.5 4.0-8.1 mg/dL Normal 11-05-2019 [facility] (50262) Comment: Performed By: #### CBC, CMP, URIC ####[place] [address] [place], [place] [phone] type and screen on 2019-11-05 ABO/RH(D) O POSITIVE Normal 11-05-2019 [facility] (32296) Comment: Performed By: #### TSCR #### [facility] [address], [place] [phone] therapy nt on 11-04 THERAPY NT HNO ID: [id number] Normal 11-05-2019 [facility] Author: Huy Brown PT [place] ([id number]) Service: Physical Therapy Author Type: Physical Therapist Type: Therapy (PT/OT/Speech/Resp) Filed: 11/05/2019 3:38 PM Note Text: PHYSICAL THERAPY MISSED VISIT SERVICE DATE: 11/05/2019 SERVICE TIME: 1536 to 1536 ROOM: [place] [address] Attempted Treatment. Patient not seen due to Declined(Having an important discussion over the phone.). Patient was having a discussion over care plan that this therapist did not want to disrupt. Physical t herapy will follow-up tomorrow 11/06/2019. SIGNATURE: Huy Brown PT PATIENT NAME: Tiana Martínez DATE: November 05, 2019 TIME: 3:37 PM THERAPY NT HNO ID: [id number] Normal 11-05-2019 [facility] Author: Huy Brown PT [place] ([id number]) Service: Physical Therapy Author Type: Physical Therapist Type: Therapy (PT/OT/Speech/Resp) Filed: 11/05/2019 11:01 AM Note Text: PHYSICAL THERAPY MISSED VISIT SERVICE DATE: 11/05/2019 SERVICE TIME: 1101 to 1101 ROOM: [place] [address] Attempted Evaluation. Patient not seen due to Another servic e at bedside(Patient in a meeting.). 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 Today's visit includes: patient and sonTiana TOPICS ADDRESSED: Coping/support Met with pt and son at to f/u on my conversation with the m yesterday re: GOC. Pt reports that he is going to initiate chemotherap y tomorrow. He said, I don't wanna just quit. He is willing to receive treatment if it won't decrease his quality of life. Son requested coordination for [facility] upon DC. Educated about t he process and CM/RN coordinating care for disposition planning. Son to call CM/RNSaud. PLAN: Communicate pertinent medical/psychosocial information to Cancer Center team, Continue follow up as needed and Provide emotio nal support to patient/family F/U APPOINTMENT: [facility] Product Development Actuary Pager: [phone] protime on PT Coag (PPP) [Time] 1.0 0.9-1.3 s Normal 0 [facility] (51515) Comment: Result Comment: Vitamin K An tagonist (VKA) Therapeutic Range: INR 2 to 3 (Target INR of 2.5) Note: For patients treated w ith VKA drugs, such as warfarin, the [employer] 2012 Guideline recommends a therapeutic INR range of 2 to 3 (target INR of 2.5). This recommendation includes high-risk patients with antiphospholipid syndrome with previous arterial or venous thromboembolism, current-generation mechanical or bioprosthetic aortic heart valve replacement. Note: Patients with toll mechanic al aortic valve replacement and additional risk factors for thromboembolic events (atrial fibrillation, previous thromboembolism, LV dysfunction, hypercoagulable conditions) or an older generation mecha nical AVR (i.e., ball in-Cage) or any mechanical MVR should have a INR therapeutic range of 2.5 to 3.5 (target INR of 3). Vitaliy GH, et al. Chest 2012 , 141:7S-47S Janet RA et al. [facility] 20 17, 70: [phone] Performed By: #### PT, CBC, MG1, PHOS ####[facility] [place] [address] [phone] PT Coag (PPP) [Time] 10.4 9.7-13.0 sec Normal 11-04- 0 [facility] (65161) Comment: Performed By: #### PT, CBC, MG1, PHOS ####[facility] [address] [place], [place] [address] [phone] progress on 2019-10 PROGRESS HNO ID: [id number] Normal 11-05-2019 [facility] Author: Matthew Puri [place] ([id number]) Service: Oncology Author Type: Physician Type: Progress Notes Filed: 11/05/2019 7:04 PM Note Text: Solid Tumor Oncology 1 Progress Note Progress Note PATIENT NAME: Tiana Martínez PRIMARY SERVICE: STO1 ADMISSION DAY 10/31/2019 HOSPITAL DAY: 5 CODE STATUS: Full Plan for Today (11/02/2019) - resume gentle diuresis - monitor weights, I/O - f/u sputum cytology and cultures - consult radiation oncology after EBUS path (preliminary RO SE SCLC) - continue scheduled duonebs - continue zosyn - continue metoprolol - consider family meeting today Interval Events Afib overnight, rate controlled, other VSS - s/p bronch yesterday with extensive airway tumor in LMS br onchi and NORY. The NORY is occluded and not amenable to bronchoscopic interv ention - Endobronchial needle aspirates and endobronchial biopsies were performed from the above described disease - Rapid On-Site Evaluation (CORY): Preliminary cytology of t he lesion in the left mainstem bronchus was suggestive of malignancy, pos sibly small cell carcinoma (final results are pending). Denies fever, chills, palpitations, lightheadedness/dizzines s, chest pain, shortness of breath, abdominal pain, n/v/d, pain or discomfo rt with urination. Vital Signs (last filed) Range in last 24h Temp: 36.3 ?C (97.3 ?F) (11/05/19513) Temp Min: 36 ?C (96. 8 ?F) Max: 37 ?C (98.6 ?F) Pulse: 63 (11/05/19513) Pulse Min: 57 Max: 94 BP: 145/77 (11/05/19513) BP Min: 145/77 Max: 189/96 Resp: 18 (11/05/19513) Resp Min: 16 Max: 19 SpO2: 100 % (11/05/19513) SpO2 Min: 95 % Max: 100 % O2 Therapy: Nasal Cannula (11/05/19513) - whole body PET scan inclusive of imaging findings consiste nt with diffuse osseous metastatic disease as well as liver involvem ent. - Hgb pending Hemoglobin (g/dL) Date Value 11/05/2019 Unable to report 11/04/2019 7.9 (L) 11/04/2019 7.5 (L) - Platelets pending Platelet Count (k/uL) Date Value 11/05/2019 Unable to report 11/04/2019 87 (L) 11/04/2019 99 (L) 11/03/2019 31 (L) 11/03/2019 33 (L) 11/02/2019 35 (L) 11/02/2019 36 (L) - WBC elevated this AM WBC (k/uL) Date Value 11/05/2019 Unable to report 11/04/2019 10.71 11/04/2019 11.16 (H) Physical Exam BP 145/77 Pulse 63 Temp 36.3 ?C (97.3 ?F) (Oral) Resp 18 Ht 175.3 cm (5' 9) Wt 91.6 kg (202 lb) SpO2 100% BMI 29. 83 kg/m? General appearance: in NAD, speaking in full coherent senten dhiraj, nondiaphoretic, cooperative with appropriate affect HEENT: anicteric sclera, EOMI, MMM. Non-cyanotic lips. Tongu e and posterior oropharynx normal. Teeth normal. Respiratory: Diminished breath sounds in NORY, LIL, LLL, Diff use expiratory wheezes. Diaphragmatic excursion and chest wall symmetry myriam ear equal and normal. No accessory muscle use. On 2L O2. Cardiovascular: RRR without gallop, or rubs or murmur. Non-d isplaced PMI. No parasternal heave. No carotid, abdominal aortic, femoral bruits noted. Normal pedal pulses bilaterally. 2+ peripheral edema noted i n the upper or lower extremities. Normal temperature of all 4 extremitie s. Abdomen/GI: Abdomen soft, non-tender, non-distended. No mass es or organomegaly noted. No hepatojugular reflux, no ascites Extremities: No clubbing or cyanosis of fingers. No cracking , pitting or petechiae on fingers. Capillary refill <2 sec bilaterally. Musculoskeletal: Spine shows no kyphosis or scoliosis. Muscl es show no clear abnormality. Skin:No petechiae, ecchymoses, rash noted. No jaundice, no p almar erythema, no spider angiomas. Neurologic: AOx3, able to vocalize, moves all extremities,?n o asterixis Psychiatric: no abnormalities with mood with congruent affec t Fluid Balance Intake/Output Summary (Last 24 hours) at 11/05/2019 0855 Last data filed at 11/05/2019 0854 Gross per 24 hour Intake 1620 ml Output 400 ml Net 1220 ml Last Weight: 91.6 kg (202 lb) (11/04/19 1341) Admit Weight: 91.6 kg (202 lb) (11/04/19 1341) Weight change: Historical weights (outpatient/ED visits) Last 8 Encounter Wt Readings: Date: Wt: 06/11/2019 90.7 kg (200 lb) 04/24/2019 88.5 kg (195 lb) 12/31/2018 83.2 kg (183 lb 8 oz) 05/02/2018 83.5 kg (184 lb) 12/21/2017 85.3 kg (188 lb) 12/21/2017 85.3 kg (188 lb) 12/01/2016 86.6 kg (191 lb) 11/20/2016 87.1 kg (192 lb) Intake/Output 11/01/19 0700 - 11/02/19 0659 11/02/19 0700 - 11/03/19 0659 11/03/19 0700 - 11/04/19 0659 11/04/19 0700 - 11/05/19 0659 11/05/19 0700 - 11/06/19 0659 Intake (ml) 850 1360 1668 1260 360 Output (ml) 550 2800 1275 425 200 Net (ml) 300 -1440 393 835 160 Labs CBC: Recent Labs 11/05/19 0511 11/04/19 1647 11/04/19 0615 11/03/19 2038 11/03/19 0115 11/02/19 2305 11/02/19 0544 11/01/19 2142 11/01/19 0330 10/31/19 1357 WBC Unable to report 10.71 11.16* 9.85 10.08 10.56 9.84 9.13 8.48 9.17 HB Unable to report 7.9* 7.5* 7.7* 7.8* 7.7* 7.8* 7.3* 6.4* 7.2* HCT Unable to report 27.9* 26.0* 25.8* 26.6* 25.9* 26.0* 24. 4* 22.6* 25.4* PLT Unable to report 87* 99* 31* 33* 35* 36* 42* 42* 41* MCV Unable to report 83.3 83.3 80.6 80.9 80.9 80.0 81.1 81.6 80.9 RDWCV Unable to report 29.9* 29.7* 29.3* 29.0* 28.9* 28.9* 2 9.2* 29.2* 29.2* NEUTP -- -- -- -- -- -- -- -- 70.0 73.0 ABSNEUT -- -- -- -- -- -- -- -- 5.94 6.69 LYMPHP -- -- -- -- -- -- -- -- 22.0 19.0 MONOP -- -- -- -- -- -- -- -- 5.0 4.0 EODINP -- -- -- -- -- -- -- -- 0.0 1.0 COAG: Recent Labs 11/05/19 0511 11/04/19 0615 11/03/19 01111/01/19 0330 10/31/19 1357 APTT -- -- -- 26.2 -- INR 1.0 1.0 1.0 -- 1.0 BMP: Recent Labs 11/03/19 1252 11/03/19 0115 11/02/19 0544 11/01/19 0330 10/31/19 1357 10/31/19 1343 GLUC 142* 179* 144* 149* 145* -- NA 146* 141 143 146* 146* -- K 3.2* 3.0* 3.3* 3.4* 3.4* -- CHLOR 102 100 103 105 107* -- CO2 29 27 24 29 28 31* ANION 15 14 16 12 11 -- BUN 34* 35* 38* 39* 41* -- CREAT 1.17 1.26* 1.18 1.40* 1.18 -- CHEM: Recent Labs 11/04/19 0615 11/03/19 1252 11/03/19 0115 11/02/19 0544 11/01/19 0330 10/31/19 1357 ALB -- -- -- -- -- 3.0* TPROT -- -- -- -- -- 5.5* CA -- 9.7 9.8 9.5 9.5 9.4 MG 2.9* -- 2.5* -- -- -- HEPATIC: Recent Labs 10/31/19 1357 ALKPHOS 108 ALT 56* AST 141* TBILI 0.4 Medications Scheduled metoprolol tartrate (short acting), 12.5 mg, q 12 H magnesium oxide, 800 mg, DAILY sodium chloride 7% solution, 4 mL, BID clotrimazole, 10 mg, 5X/DAY salt and soda, 5-10 mL, q 6 H acetylcysteine, 200 mg, q 8 H guaiFENesin, 600 mg, q 12 H latanoprost, 1 Drop, AT BEDTIME atorvastatin, 40 mg, AT BEDTIME therapeutic multivitamin, 1 tablet, DAILY rOPINIRole, 3 mg, TID NaCl 0.9%, 3-5 mL, q 12 H piperacillin-tazobactam, 3.375 g, q 8 H melatonin, 3 mg, AT BEDTIME PRN aquaphor/nystatin ointment/cholestyramine 1:1:1, , PRN albuterol, 2.5 mg, q 4 H PRN ondansetron (PF), 4 mg, q 6 H PRN metoclopramide HCl, 10 mg, q 6 H PRN polyethylene glycol 3350, 17 g, DAILY PRN Infusion Medications: NaCl 0.9%, Last Rate: 10 mL/hr (11/04/19 2346) Micro BCx 10/[address] 12/24/2018 Spiculated right upper lobe subpleural nodule is mildly larg er and more consolidative in comparison to prior scans, and suspicious f or recurrence/growth. ?Notably, the nodule demonstrated residua l mild FDG avidity on a remote PET/CT from 01/15/2018 and previously se en groundglass components of the nodule are now replaced with s olid components. Interval resolution of diffuse centrilobular nodules and per ibronchial groundglass opacities compatible with resolved infection or aspiration. Stable 3 mm indeterminate left upper lobe nodule. ?New clust er of 2-4 mm centrilobular nodules in the RLL could be infectious/inflamm atory. ? Follow-up is suggested. ? CTA 10/31/2019 no pulmonary embolism arterial dissection. Spi culated nodule in the right upper lobe measuring approximately 1.5 cm, with a large loculated left hilar mass with atelectasis in the lingula an d left upper lobe, and a perihilar mass encasing the left pulmonary arter y, measuring 6.8 x 4.9 x 6.6 cm in size. Enlargement of mediastinal nodes , the largest measuring approximately 5.7 x 3.4 cm. Oncologic History - Right upper lobe non-small cell lung cancer (stage Ia) s/p SBRT (50 Gy in 5 fx) completed 03/22/16 -The patient continued to be monitored by CT, and showed no evidence of disease but a visible CT density continued to increase sligh tly over the previous CTs, though negative on PET uptake, concerning for post SBRT change vs progression of PET negative neoplasm -Was last seen by Dr. Sanchez, eventually on 04/23/2019 whe n he recommended CT-guided biopsy of this possible mass. The biop sy from 05/20/2019 showed focally infarcted tissue without granulomas or malignant cells. Chest CTA 10/30 showed new large loculated left hilar mass wi th atelectasis in the lingula and left upper lobe, and a perihilar mass enc asing the left pulmonary artery, measuring 6.8 x 4.9 x 6.6 cm in size. Also noted was enlargement of mediastinal nodes, the largest measuring appr oximately 5.7 x 3.4 cm. Assessment and Plan ? 79 year old male PMH of Right upper lobe non-small cell lung cancer (stage Ia) s/p SBRT (50 Gy in 5 fx) completed 03/29, who presented with SOB, found to have a large loculated left hilar mass with atelect asis in the lingula and left upper lobe, and encasing the left pulmonary artery, with possible postobstructive pneumonitis. ? 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 The NORY is occluded and not amenable to bronchoscopic interventi on - s/p Endobronchial needle aspirates and endobronchial biops ies - Rapid On-Site Evaluation (CORY): Preliminary cytology of t he lesion in the left mainstem bronchus was suggestive of malignancy, pos sibly small cell carcinoma (final results are pending). Plan: F/u pulm recs F/u path ? # postobstructive pneumonia/pneumonitis # hypoxia CTA 10/30 w/ new large loculated left hilar mass with atelect asis in the lingula and left upper lobe, and a perihilar mass encasing t he left pulmonary artery, measuring 6.8 x 4.9 x 6.6 cm in size. Enla rgement of mediastinal nodes, the largest measuring approximately 5.7 x 3.4 cm. Strep pneumo urine AG neg Covid-19 neg Plan: Continuous pulse oxymetry F/u RSV panel, Legionella Ag urine Continue Zosyn 3.75 q6h ? # COPD - duoneb PRN and scheduled q4h ? # ADHF Weight gain 2+ pedal edema NT pro BNP 800s Plan: - TTE - Tele - Fluid restriction (<1.5 L), salt restriction (<2g) - Daily wgts - Strict I/Os - Suppl O2 to titrate O2>92%, CPAP/BiPAP if needed - continue home ARB - continue BB ? # thrombocytopenia Platelet Count (k/uL) Date Value 11/05/2019 Unable to report 11/04/2019 87 (L) 11/04/2019 99 (L) 11/03/2019 31 (L) 11/03/2019 33 (L) 11/02/2019 35 (L) 11/02/2019 36 (L) unclear precipitating factor Pathologist review: Normocytic Anemia With Moderate Polychro masia Thrombocytopenia S/p 1 unit platelets for bronch Plan: CTM Consider heme consult hold AC ? # anemia Hemoglobin (g/dL) Date Value 11/05/2019 Unable to report 11/04/2019 7.9 (L) 11/04/2019 7.5 (L) s/p 1 unit pRBC transfusion 10/31, no overt sign of bleeding DIC labs unrevealing (elevated fibrinogen, d dimer but CT PE was negative) Iron studies unrevealing : Iron, TIBC WNL Plan: CTM Daily CBC Consider heme consult, bone marrow biopsy? ? ? # CARO -resolved 2/2 aggressive diuresis due to orthopnea, PND Plan: Strict I/O Hold diuresis # pAfib AMET called for afib with RVR HR 156 overnight of 11/02 AMET called, given 5 mg IV metoprolol x2, spontaneously converted to NSR Currently on 25 mg metoprolol tartrate BID Home: metoprolol succinate, apixiban 5 mg BID Plan: Continue rate control with metop tartrate, uptitrate as neee ded Hold AC due to thrombocytopenia Rounding Checklist: Diet/Nutrition: heart healthy Mobility status: mobile VTE Prophylaxis: deferred due to thrombocytopenia Pain management: tylenol Glycemic control: SSI Code Status: full Dispo Planning: pending 10/31/19 1215 vte pharmacologic prophylaxis contraindicated (ky,wi) 10/31/19 1215 pneumatic compression stockings (ky,wi) 10/31/19 1215 activity - mobilize patient (ky,wi) SIGNATURE: Skylar Seay MD PHD PGY-1 PATIENT NAME: Tiana medina DATE: 11/05/2019 TIME: 7:58 AM PAGER: [phone] Note: These recommendations are not final until staffed by max harris HEMATOLOGY/MEDICAL ONCOLOGY/[facility] BRAIN TUMOR CENTER STA FF: STAFF PHYSICIAN NOTE OF PERSONAL INVOLVEMENT IN CARE I have reviewed the progress note obtained and documented by the Resident and I personally participated in the kelley components. I have discussed the case and management of the patient's care with the Resident. The following comments revise or confirm relevant kelley components of the Re sident's note. IMPRESSION/PLAN: Final path: SCLC. Discussed with the patient and son the elham gnosis, prognosis, natural history, goals of care, and options 1. Radiation alone 2. Chemotherapy alone 3. Radiation + chemo Rec #2. Risks, benefits, alternatives and personnel involved were discussed. The patient wishes to proceed and has provided si gned informed consent. Will start carbo/etoposide with dose reduction of carbo (AUC 4 instead of 5) due to thrombocytopenia. [place] [id number] phosphorus on 11-04 Phosphate [Mass/Vol] 4.1 2.7-4.8 mg/dL Normal 0 [facility] ([id number]) Comment: Performed By: #### PT, CBC, MG1, PHOS ####[facility] [address] [place] [address] [phone] nursing prog on NURSING PROG HNO ID: [id number] Normal 11-05-19 [facility] Author: Cesilia Hernandez) JUNIE Ching [place] ([id number]) Service: Nursing Author Type: Registered Nurse Type: Nursing Progress Note Filed: 11/05/2019 8:02 PM Note Text: Radiology Service Progress Note DATE OF SERVICE: November 05, 2019 TIME: 8:02 PM PATIENT WEIGHT: 202LBS PATIENT IDENTITY VERIFICATION COMPLETED USING TWO (2) STAN[address] RD IDENTIFIERS: Name and Date of confirmed by patient nida bally and Name and Date of confirmed by identification band. FALL SCREENING: Has the patient had 2 falls in the last year or 1 fall with injury or currently using an Ambulatory Assistive Devic e (Walker, Cane, Wheelchair, Crutches, etc.)? Yes, Patient High Risk fo r Falls What interventions were put in place to prevent falls during this visit? Non-Skid Socks Used, Yellow Falls Risk Wristband Applied, Increased Observations by Caregivers and Patient Refused Interventions /Assistance PATIENT GENDER DATA: Male ALLERGIES: Reviewed and unchanged CONTRAST ALLERGY: No EXAM: MRI - CONTRAST TYPE: GROUP II IV SITE: Inpatient - refer to LDA documentation IV SITE APPEARANCE: Clean,Dry and Intact SIGNATURE: Cesilia Ching RN PATIENT NAME: Tiana Martínez DATE: November 05, 2019 TIME: 8:02 PM NURSING PROG HNO ID: [id number] Normal 11-05-[address] [place] [address] Author: Katina JasmineRn) JUNIE Holland [place] ([id number]) Service: ? Author Type: Registered Nurse Type: Nursing Progress Note Filed: 11/05/2019 5:26 AM Note Text: Nursing Progress Note Patient Name: Tiana Martínez [place] [facility] [id number] Daily Note: [id number] Tylenol given for pain 4/10 to R hip. Heart/lung s ounds WNL. Irregular HR on ascultation. Pt on telemetry, monitor review ed, patient in Afib HR 80-100. ([id number]) updated. 0500 MASD noted to scrotum, [facility], pt self applied. Pt noted wheezing/SOB, sating well on 2L NC. R T at bedside for PRN tx and scheduled mucomyst. AM labs drawn by lab director . This note was completed by: Katina Hloland RN NURSING PROG HNO ID: [id number] Normal 11-05-19 [facility] Author: Ifrah (Rn) JUNIE Caicedo ([id number]) Service: Nursing Author Type: Registered Nurse Type: Nursing Progress Note Filed: 11/04/2019 11:12 PM Note Text: Nursing Progress Note Patient Name: Tiana Martínez Patient Location: G070 [id number] Daily Note:Pt alert and oriented x 3. Pt sat up in chair all evening. Compression wraps on bilat legs while in chair and just luis angel lexis now that he is back in bed. Pt called this RN in to state that his sc rotum is bleeding. On underneath of his scrotum there was a old scar that looked irritated and had scant blood on it. Will monitor. Pt anxiou s. Time spent providing emotional support. This note was completed by: Ifrah Caicedo RN mri brain wo/w ivcon on 2019-11-05 MRI BRAIN WO/W * * *Final Report* * * Normal [facility] IVCON DATE OF EXAM: Nov 05 2019 8:33PM [place] ([id number]) QBM 0295 - MRI BRAIN WO/W IVCON / PROCEDURE REASON: Neoplasm: head, metastatic, suspected * * * * Physician Interpretation * * * * EXAMINATION: MRI BRAIN WO/W IVCON HISTORY: Neoplasm: head, metastatic, suspected. History of r ight upper lobe non-small cell lung cancer. Usually found to have large loculated left hilar mass, preliminary pathology reading suggestive of malignancy and small cell carcinoma. TECHNIQUE: MRI of the brain without and with contrast includ ing diffusion and susceptibility weighted imaging. MQ: [id number] Contrast: 18 mL Dotarem IV COMPARISON: None. RESULT: Acute Change: There is no evidence of an acute intracranial process. Hemorrhage: No evidence of prior parenchymal hemorrhage on t he susceptibility weighted images. Mass Lesion/ Mass Effect: There is no abnormal parenchymal o r leptomeningeal enhancement to suggest parenchymal metastatic or leptomeningeal spread of disease. Chronic Change: Scattered patchy areas of increased T2 and F LAIR signal are present in the supratentorial white matter which is a no nspecific finding but likely represents mild chronic microvascular isc hemia. Remote lacunar infarct within the right frontal mccord radia ta, left caudate head, as well as within the left thalamus. Parenchyma: No significant volume loss for age. Ventricles: Normal caliber and morphology. Skull Base: Hypothalamic and pituitary region are grossly no rmal. Craniocervical junction is normal. Diffuse pathologic T1 mar row hypointensity within the skull base and visualized upper cer vical spine suggesting metastatic infiltration. Vasculature: Major intracranial arterial structures, and dur al venous sinuses show typical flow void, suggesting patency by spin e cho criteria. Other: Patchy and confluent abnormal marrow restricted diffu parrish within the calvarium with involvement of the bilateral greater sphe noid wings corresponding with areas of abnormal T1 hypointensity compat ible with osseous metastasis. One of the larger lesions is within the left parieto-occipital calvarium with slight expansion of the dip loic space and without extraosseous extension of disease. Orbits appear unremarkable. Paranasal sinuses and mastoid air cells are cl ear. IMPRESSION: No acute abnormality. No evidence of intracranial parenchyma l or leptomeningeal spread of disease. Diffuse osseous metastasis involving the calvarium, skull ba se, and visualized upper cervical spine without extraosseous extensi on of neoplasm. 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 System: PSCB Transcribe Date/Time: Nov 05 2019 8:57P Dictated by : SIMI KERNS MD This examination was interpreted and the report reviewed and electronically signed by: ZEE EVANS MD on Nov 05 2019 9:20PM EST [id number] magnesium on 11-04 Magnesium [Mass/Vol] 2.9 1.7-2.3 mg/dL High [facility] ([id number]) Comment: Performed By: #### PT, CBC, MG1, PHOS ####[place] [address] [phone] comp metabolic panel on 2019-11-05 Albumin [Mass/Vol] 3.1 3.9-4.9 g/dL Low 11-05-2019 [facility] ([id number]) Comment: Performed By: #### CBC, CMP, URIC ####[facility] [address] [place] [address] [phone] ALP [Catalytic activity/Vol] 140 38-113 U/L High 0 11-05-2019 [facility] ([id number]) Comment: Performed By: #### CBC, CMP, URIC ####[place] [address] [phone] ALT [Catalytic activity/Vol] 61 10-54 U/L High 0 11-05-2019 [facility] ([id number]) Comment: Performed By: #### CBC, CMP, URIC ####[place] [address] [place] [address] [phone] Anion gap [Moles/Vol] 14 9-18 mmol/L Normal 11-05-19 [facility] (30122) Comment: Performed By: #### CBC, CMP, URIC ####[place] [address] [phone] AST [Catalytic activity/Vol] 207 14-40 U/L High 0 11-05-2019 [facility] ([id number]) Comment: Performed By: #### CBC, CMP, URIC ####[place] [address] [place] [address] [phone] Bilirubin [Mass/Vol] 0.5 0.2-1.3 mg/dL Normal 0 [facility] ([id number]) Comment: Performed By: #### CBC, CMP, URIC ####[place] [address] [place] [address] [phone] Calcium [Mass/Vol] 9.7 8.5-10.2 mg/dL Normal 11-05-2019 [facility] (11703) Comment: Performed By: #### CBC, CMP, URIC ####[place] [address] [phone] Chloride [Moles/Vol] 101 97-105 mmol/L Normal 0 [facility] (57863) Comment: Performed By: #### CBC, CMP, URIC ####[place] [address] [place] [address] [phone] CO2 [Moles/Vol] 28 22-30 mmol/L Normal 11-05-2019 [facility] (53774) Comment: Performed By: #### CBC, CMP, URIC ####[place] [address] [place] [address] [phone] Creatinine [Mass/Vol] 1.33 0.73-1.22 mg/dL High 11-05-19 20 [facility] (96248) Comment: Performed By: #### CBC, CMP, URIC ####[place] [address] [place] [place] [address] [phone] eGFR- Amer. >60 Normal 11-05-2019 [facility] (13579) Comment: Performed By: #### CBC, CMP, URIC ####[place] [address] [place] [address] [phone] GFR/1.73 sq M predicted among 52 . Normal 11-05-2019 [facility] non-blacks MDRD (S/P/Bld) [Vol (25847) rate/Area] Comment: Result Comment: eGFR (Estima alejandrina GFR) Units of measure: mL/min/1.73 meters squared eGFR is derived from the ree xpressed MDRD Study equation using the following parameters: serum creatinine, age, gender and race. The creatinine assay has been calibrated to be traceable to IDMS. An eGFR <60 mL/min/1.73m2 fo r >3 months is consistent with chronic kidney disease. Refer to KDOQI guidelines for clinical interpretation. In patients with unstable re nal function, e.g. those with acute kidney injury, the eGFR may not accurately reflect actual GFR. Performed By: #### CBC, CMP, URIC ####[facility] [address] [place] [address] [phone] Glucose [Mass/Vol] 181 74-99 mg/dL High 11-05-2019 [facility] (81415) Comment: Result Comment: The [place] [employer] (ADA) provides guidance for cutoff values for fasting glucose and random glucose. The ADA defines fasting as no caloric intake for at least 8 hours. Fas ting plasma glucose results between 100 to 125 mg/dL indicate increased risk for diabetes (prediabetes). Fasting plasma glucose resul ts greater than or equal to 126 mg/dL meet the criteria for diagnosis of diabetes. In the absence of unequivocal hyperglycemia, results should be confirmed by repeat testing. In a patient with classic s ymptoms of hyperglycemia or hyperglycemic crisis, random plasma glucose results greater than or equal to 200 mg/dL meet the criteria for diagnosis of diabetes. Reference: Standards of [facility] Care in Diabetes 2016, [place] [employer]. Diabetes Care. 2016.39(Suppl 1). Performed By: #### CBC, CMP, URIC ####[facility] [address] [place] [address] [phone] Potassium [Moles/Vol] 3.5 3.7-5.1 mmol/L Low 11-05-19 [facility] (14348) Comment: Performed By: #### CBC, CMP, URIC ####[place] [address] [place] [address] [place] [address] Protein [Mass/Vol] 5.4 6.3-8.0 g/dL Low 11-05-2019 [facility] (84962) Comment: Performed By: #### CBC, CMP, URIC ####[address] [place] [address] Sodium [Moles/Vol] 143 136-144 mmol/L Normal 11-05-2019 [facility] (17385) Comment: Performed By: #### CBC, CMP, URIC ####[address] [place] [place] [address] Urea nitrogen [Mass/Vol] 37 9-24 mg/dL High 11-04 [facility] (89536) Comment: Performed By: #### CBC, CMP, URIC ####[place] [address] cbc on 2019-11-05 Absolute nRBC 1.06 <0.01 k/uL High 11-05-2019 [facility] (14641) Comment: Performed By: #### CBC, CMP, URIC ####[place] [address] Erythrocyte distribution 29.8 11.5-15.0 % High 11-04 [facility] width (RBC) [Ratio] [place] (02306) Comment: Performed By: #### CBC, CMP, URIC ####[address] [address] Hematocrit (Bld) [Volume 23.9 39.0-51.0 % Low 11-04 [facility] fraction] (56144) Comment: Performed By: #### CBC, CMP, URIC ####[address] [address] Hemoglobin (Bld) 7.1 13.0-17.0 g/dL Low 11-05-2019 [facility] [Mass/Vol] [place] (68657) Comment: Performed By: #### CBC, CMP, URIC ####[address] [address] MCH (RBC) [Entitic mass] 24.7 26.0-34.0 pG Low 11-04 [facility] (76824) Comment: Performed By: #### CBC, CMP, URIC ####[address] [address] MCHC (RBC) [Mass/Vol] 29.7 30.5-36.0 g/dL Low 11-05-19 20 [facility] (90459) Comment: Performed By: #### CBC, CMP, URIC ####[place] [address] MCV (RBC) [Entitic vol] 83.0 80.0-100.0 fL Normal 11-04 [facility] (75869) Comment: Performed By: #### CBC, CMP, URIC ####[place] [address] [phone] Platelet mean <<DO NOT REPORT>> 9.0-12.7 Normal 11-05-19 20 [facility] volume (Bld) [place] (74881) [Entitic vol] Comment: Performed By: #### CBC, CMP, URIC ####[address] [place] [address] [phone] Platelets (Bld) [#/Vol] 62 150-400 k/uL Low 2019 [facility] (08195) Comment: Result Comment: Result check ed and verified No clot detected. Performed By: #### CBC, CMP, URIC ####[address] [place] [address] RBC (Bld) [#/Vol] 2.88 4.20-6.00 m/uL Low 11-05-2019 [facility] (58765) Comment: Performed By: #### CBC, CMP, URIC ####[place] [address] [address] [address] [phone] WBC (Bld) [#/Vol] 11.14 3.70-11.00 k/uL High 11-05-2019 [facility] (87669) Comment: Performed By: #### CBC, CMP, URIC ####[place] [address] [place] [place] [address] [phone] Absolute nRBC Unable to report <0.01 Normal 0 [facility] (05004) Comment: Performed By: #### PT, CBC, MG1, PHOS ####[address] [place] [address] Erythrocyte Unable to 11.5-15.0 Normal 11-05-2019 [facility] distribution width report [facility] (66967) (RBC) [Ratio] Comment: Performed By: #### PT, CBC, MG1, PHOS ####[address] [place] [place] [address] [phone] Hematocrit (Bld) Unable to report 39.0-51.0 Normal 2019 [facility] [Volume fraction] [facility] (55547) Comment: Performed By: #### PT, CBC, MG1, PHOS ####[place] [address] [address] [address] Hemoglobin (Bld) Unable to report 13.0-17.0 Normal 2019 [facility] [Mass/Vol] [place] (97887) Comment: Performed By: #### PT, CBC, MG1, PHOS ####[place] [address] [place] [address] [address] [phone] MCH (RBC) [Entitic Unable to report 26.0-34.0 Normal 10-13 [facility] mass] [place] (39834) Comment: Performed By: #### PT, CBC, MG1, PHOS ####[facility] [place] [address] [address] MCHC (RBC) Unable to report 30.5-36.0 Normal 11-05-2019 [facility] [Mass/Vol] [place] (23265) Comment: Performed By: #### PT, CBC, MG1, PHOS ####[place] [address] [place] [address] [place] [address] MCV (RBC) [Entitic Unable to report 80.0-100.0 Normal [facility] vol] [place] (45382) Comment: Performed By: #### PT, CBC, MG1, PHOS ####[place] [address] [place] [place] [address] Platelet mean Unable to report 9.0-12.7 Normal 0 [facility] volume (Bld) [place] ([address]603) [Entitic vol] Comment: Performed By: #### PT, CBC, MG1, PHOS ####[address] [address] Platelets (Bld) Unable to report 150-400 Normal 020 [facility] [#/Vol] [place] (06836) Comment: Performed By: #### PT, CBC, MG1, PHOS ####[place] [address] [place] [address] RBC (Bld) [#/Vol] Unable to report 4.20-6.00 Normal 11-04 [facility] (72279) Comment: Performed By: #### PT, CBC, MG1, PHOS ####[place] [address] [place] [address] WBC (Bld) [#/Vol] Unable to report 3.70-11.00 Normal - [facility] (75295) Comment: Result Comment: Account Cred ited Unable to assay. Clotted spe cimen. Called to A.L [id number] 6.24.20 L.M Performed By: #### PT, CBC, MG1, PHOS ####[facility] [address] [place] [address] [phone] allied health on 01-11-23 ALL[facility] HEALTH HNO ID: [id number] Normal 020 [facility] Author: Marleny (Rt) Rei Castro [place] ([id number]) Service: Radiology Author Type: High School Music Director Type: Allied Health Filed: 11/05/2019 8:18 PM Note Text: Radiology Service Progress Note PATIENT NAME: Tiana Martínez DATE OF SERVICE: November 05, 2019 TIME: 8:18 PM PATIENT IDENTITY VERIFICATION COMPLETED USING TWO (2) IDENTI FIERS: Name and Date of confirmed by patient verbally and Name and Date of confirmed by identification band. FALL SCREENING: Has the patient had 2 falls in the last year or 1 fall with injury or currently using an Ambulatory Assistive Devic e (Walker, Cane, Wheelchair, Crutches, etc.)? Inpatient: Screened on ky oor PATIENT GENDER DATA: Male PATIENT RELEVANT IMPLANT DATA REVIEWED: Yes RADIOLOGY DEPARTMENT: MR; Exam(s) Completed: Head: Routine B rain PERIPHERAL IV DATA: Inpatient: see LDA documentation SIGNED BY: Marleny Pierson [facility] November 05, 2019 8:18 PM therapy nt on 11-03 THERAPY NT HNO ID: [id number] Normal 11-04-2019 [facility] Author: Huy JasminePtMARCY [place] ([id number]) Service: Physical Therapy Author Type: Physical Therapist Type: Therapy (PT/OT/Speech/Resp) Filed: 11/04/2019 1:20 PM Note Text: PHYSICAL THERAPY MISSED VISIT SERVICE DATE: 11/04/2019 SERVICE TIME: 1320 to 1320 ROOM: [place] [address] Attempted Evaluation. Patient not seen due to Test/Procedure . Physical therapy will continue to monitor this patient. SIGNATURE: Huy Brown PT PATIENT NAME: Tiana Martínez DATE: November 04, 2019 TIME: 1:20 PM surgical pathology on 2019-11-04 SURGICAL Specimen originated from [facility] Normal 11-04-2019 [place] PATHOLOGY Specimen #: [id number] [facility] Submitting Physician: LIZANDRO CRUZ M.D. 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 SM/slb 11/05/2019 COMMENT Sections show a poorly differentiated malignant neoplasm wit h morphologic features typical of small cell carcinoma. The neoplastic c ells are positive for keratin AE1/AE3, synaptophysin, chromogranin, INSM1, and TTF-1, and negative for p40, supporting the diagnosis. Laboratory Developed Test (LDT) Disclaimer: Positive and negative controls stain appropriately. Performa nce characteristics of immunohistochemical, immunofluorescent an d chromogenic in-situ hybridization tests have been determined by [facility]'s [facility] (RT-PLMI) in a manner consistent with CLIA requirements. One or more of these tests have not been cleared or approved by the FDA. [facility] is regula alejandrina under CLIA as qualified to perform high-complexity testing. These tests ar e used for clinical purposes. They should not be regarded as investigat ional or for research. Reference: Sherwin Pink, Roberta CoreyK, Stephen CP, et al. Insulinoma-a ssociated protein 1 (INSM1) is a sensitive and highly specific marker of neuroendocrine differentiation in primary lung neoplasms: an immunohistochemical study of 345 cases, including 292 whole- tissue sections. Mod Pathol 2019;32(1):100-109. Tam Courtney M.D. (Electronic Signature) SPECIMEN SUBMITTED A: LEFT MAINSTEM MASS LUNG BIOPSY CLINICAL DATA LUNG MASS EBBX GROSS DESCRIPTION A. Received in formalin are multiple pieces of lewis-pink to red tissue, soft tissue aggregating to 1.5 x 0.4 x 0.2 cm. Totally submitted in one cassette. Gross examination performed at [facility], [address] [place] [address] JT 11/04/2019 8:04:03 PM Date of Report: 11/06/2019 Date of Procedure: 11/04/2019 Date of Receipt: 11/04/2019 Submitted by: LIZANDRO CRUZ M.D. Additional Physician(s): SHAHEEN ROSENBERG Location: PULMONARY MAIN Diagnostic interpretation performed at [place] [address]. 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 Met with pt at to introduce role. Pt repo rts that he feels that the information shared has been understood by he and his son, Jr Tiana. Pt provided a clear line of his medical course and stated that he feels that he is headed for comfort care. We discussed his goals and he shared that his son has taken this hard. Validation and support provided. Discussed pt's ADs which he reports was provided to registra kannan and his gl accountant's office over the years. He offered to have hi s son, Tiana, bring them for scanning. Spoke to pt's son, Tiana, who agreed to produce the advance d irectives when he arrives to visit pt today. While we spoke, Tiana mentioned that he feels like the pt's condition is funneling him toward hospic e care. I explained that I had discussed this topic with the pt lanny jordan and would be willing to assist with the conversation with the medical tea m once the results are back from the broch/biopsy. Met Tiana at main entrance to collect AD forms for review. Ac cepted forms and copied and sent for scanning. Originals will be returned to pt/son when able. Pt is currently at procedure and son is unable to visit room until pt has returned. We continue to remain involved and regularly discuss patient 's progress with nurse and/or physician, and remain available to patient 's family. Signature: Jay Tejada [facility] Product Development Actuary Pager: [phone] Date: November 04, 2019 Time: 10:58 AM protime on PT Coag (PPP) [Time] 10.4 9.7-13.0 sec Normal 0 [facility] ([id number]) Comment: Performed By: #### CBC, PT, MG1, PHOS ####[facility] [place] [address] [phone] PT Coag (PPP) [Time] 1.0 0.9-1.3 s Normal 0 [facility] ([id number]) Comment: Result Comment: Vitamin K An tagonist (VKA) Therapeutic Range: INR 2 to 3 (Target INR of 2.5) Note: For patients treated w ith VKA drugs, such as warfarin, the [employer] 2012 Guideline recommends a therapeutic INR range of 2 to 3 (target INR of 2.5). This recommendation includes high-risk patients with antiphospholipid syndrome with previous arterial or venous thromboembolism, current-generation mechanical or bioprosthetic aortic heart valve replacement. Note: Patients with toll mechanic al aortic valve replacement and additional risk factors for thromboembolic events (atrial fibrillation, previous thromboembolism, LV dysfunction, hypercoagulable conditions) or an older generation mecha nical AVR (i.e., ball in-Cage) or any mechanical MVR should have a INR therapeutic range of 2.5 to 3.5 (target INR of 3). Vitaliy SEALS, et al. Chest 2012 , 141:7S-47S Janet MCNEAL et al. [facility] 20 , 70: 252-289 Performed By: #### CBC, PT, MG1, PHOS ####[facility] [address] [place], [place] [address] [phone] progress on 2019-10 PROGRESS HNO ID: [id number] Normal 11-04-2019 [facility] Author: Lizandro Lock ([id number]) Service: Pulmonary Disease Author Type: Physician Type: Progress Notes Filed: 11/04/2019 5:05 PM Note Text: Interventional Pulmonary Medicine Bronchoscopy completed. Please see full noted under get higinio ges or the procedure tab in chart review. FINDINGS: - Extensive airway tumor in LMS bronchi and NORY. The NORY is occluded and not amenable to bronchoscopic intervention - Endobronchial needle aspirates and endobronchial biopsies were performed from the above described disease - Rapid On-Site Evaluation (CORY): Preliminary cytology of t he lesion in the left mainstem bronchus was suggestive of malignancy, pos sibly small cell carcinoma (final results are pending). Electronically Signed: Lizandro Cruz MD, MS November 04, 2019 5:03 PM PROGRESS HNO ID: [id number] Normal 11-04-2019 [facility] Author: Matthew Lock ([id number]) Service: Oncology Author Type: Physician Type: Progress Notes Filed: 11/08/2019 1:00 PM Note Text: Solid Tumor Oncology 1 Progress Note Progress Note PATIENT NAME: Tiana Martínez PRIMARY SERVICE: STO1 ADMISSION DAY 10/31/2019 HOSPITAL DAY: 4 CODE STATUS: Full Plan for Today (11/02/2019) - hold diuresis given CARO and no improvement in respiratory status with diuresis - monitor weights, I/O - NPO for bronch, EBUS - f/u radiology re biopsy of supraclavicular LN - f/u sputum cytology and cultures - consult radiation oncology after EBUS prelim (to preserve tissue diagnosis) - continue scheduled duonebs - continue zosyn - continue metoprolol, uptitrated to 25 mg tartrate BID for rate control - f/u MRI brain today Interval Events NAEO, VSS Vital Signs (last filed) Range in last 24h Temp: 36.6 ?C (97.9 ?F) (11/04/19 0538) Temp Min: 36.3 ?C (9 7.4 ?F) Max: 36.8 ?C (98.2 ?F) Pulse: 80 (11/04/19537) Pulse Min: 72 Max: 90 BP: 153/69 (11/04/19537) BP Min: 143/78 Max: 165/63 Resp: 20 (11/04/19537) Resp Min: 16 Max: 20 SpO2: 98 % (11/04/19537) SpO2 Min: 94 % Max: 100 % O2 Therapy: Nasal Cannula (11/04/19537) Liters: 2.00 (11/04/19537) - whole body PET scan inclusive of imaging findings consiste nt with diffuse osseous metastatic disease as well as liver involvem ent. - pleural effusion not tappable per pleurocentesis team - Hgb stable Hemoglobin (g/dL) Date Value 11/04/2019 7.5 (L) 11/03/2019 7.7 (L) 11/03/2019 7.8 (L) - Platelets improved after tx Platelet Count (k/uL) Date Value 11/04/2019 99 (L) 11/03/2019 31 (L) 11/03/2019 33 (L) 11/02/2019 35 (L) 11/02/2019 36 (L) 11/01/2019 42 (L) 11/01/2019 42 (L) - WBC elevated this AM WBC (k/uL) Date Value 11/04/2019 11.16 (H) 11/03/2019 9.85 11/03/2019 10.08 Physical Exam BP 153/69 Pulse 80 Temp 36.6 ?C (97.9 ?F) (Oral) Resp 20 SpO2 98% General appearance: in NAD, speaking in full coherent senten dhiraj, nondiaphoretic, cooperative with appropriate affect HEENT: anicteric sclera, EOMI, MMM. Non-cyanotic lips. Tongu e and posterior oropharynx normal. Teeth normal. Respiratory: Diminished breath sounds in NORY, LIL, LLL, Diff use expiratory wheezes. Diaphragmatic excursion and chest wall symmetry myriam ear equal and normal. No accessory muscle use. On 2L O2. Cardiovascular: RRR without gallop, or rubs or murmur. Non-d isplaced PMI. No parasternal heave. No carotid, abdominal aortic, femoral bruits noted. Normal pedal pulses bilaterally. 2+ peripheral edema noted i n the upper or lower extremities. Normal temperature of all 4 extremitie s. Abdomen/GI: Abdomen soft, non-tender, non-distended. No mass es or organomegaly noted. No hepatojugular reflux, no ascites Extremities: No clubbing or cyanosis of fingers. No cracking , pitting or petechiae on fingers. Capillary refill <2 sec bilaterally. Musculoskeletal: Spine shows no kyphosis or scoliosis. Muscl es show no clear abnormality. Skin:No petechiae, ecchymoses, rash noted. No jaundice, no p almar erythema, no spider angiomas. Neurologic: AOx3, able to vocalize, moves all extremities,?n o asterixis Psychiatric: no abnormalities with mood with congruent affec t Fluid Balance Intake/Output Summary (Last 24 hours) at 11/04/2019 0852 Last data filed at 11/04/2019 0700 Gross per 24 hour Intake 1668 ml Output 1300 ml Net 368 ml Last Admit Weight change: Historical weights (outpatient/ED visits) Last 8 Encounter Wt Readings: Date: Wt: 06/11/2019 90.7 kg (200 lb) 04/24/2019 88.5 kg (195 lb) 12/31/2018 83.2 kg (183 lb 8 oz) 05/02/2018 83.5 kg (184 lb) 12/21/2017 85.3 kg (188 lb) 12/21/2017 85.3 kg (188 lb) 12/01/2016 86.6 kg (191 lb) 11/20/2016 87.1 kg (192 lb) Intake/Output 10/31/19 0700 - 11/01/19 0659 11/01/19 07 - 11/02/19 0659 11/02/19 0700 - 11/03/19 0659 11/03/19 0700 - 11/04/19 0659 11/04/19 0700 - 11/05/19 0659 Intake (ml) 50 850 1360 1668 ? Output (ml) 320 175 6734 1275 225 Net (ml) -902 300 -1440 393 -225 Labs CBC: Recent Labs 11/04/19 0615 11/03/19 2038 11/03/19 0115 11/02/19 2305 11/02/19 0544 11/01/19 2142 11/01/19 0330 10/31/19 1357 WBC 11.16* 9.85 10.08 10.56 9.84 9.13 8.48 9.17 HB 7.5* 7.7* 7.8* 7.7* 7.8* 7.3* 6.4* 7.2* HCT 26.0* 25.8* 26.6* 25.9* 26.0* 24.4* 22.6* 25.4* PLT 99* 31* 33* 35* 36* 42* 42* 41* MCV 83.3 80.6 80.9 80.9 80.0 81.1 81.6 80.9 RDWCV 29.7* 29.3* 29.0* 28.9* 28.9* 29.2* 29.2* 29.2* NEUTP -- -- -- -- -- -- 70.0 73.0 ABSNEUT -- -- -- -- -- -- 5.94 6.69 LYMPHP -- -- -- -- -- -- 22.0 19.0 MONOP -- -- -- -- -- -- 5.0 4.0 EODINP -- -- -- -- -- -- 0.0 1.0 COAG: Recent Labs 11/04/19 0615 11/03/19 0115 11/01/19 0330 10/31/19 1357 APTT -- -- 26.2 -- INR 1.0 1.0 -- 1.0 BMP: Recent Labs 11/03/19 1252 11/03/19 0115 11/02/19 0544 11/01/19 0330 10/31/19 1357 10/31/19 1343 GLUC 142* 179* 144* 149* 145* -- NA 146* 141 143 146* 146* -- K 3.2* 3.0* 3.3* 3.4* 3.4* -- CHLOR 102 100 103 105 107* -- CO2 29 27 24 29 28 31* ANION 15 14 16 12 11 -- BUN 34* 35* 38* 39* 41* -- CREAT 1.17 1.26* 1.18 1.40* 1.18 -- CHEM: Recent Labs 11/03/19 1252 11/03/19 0115 11/02/19 0544 11/01/19 0330 10/31/19 1357 ALB -- -- -- -- 3.0* TPROT -- -- -- -- 5.5* CA 9.7 9.8 9.5 9.5 9.4 MG -- 2.5* -- -- -- HEPATIC: Recent Labs 10/31/19 1357 ALKPHOS 108 ALT 56* AST 141* TBILI 0.4 Medications Scheduled metoprolol tartrate (short acting), 25 mg, q 12 H magnesium oxide, 800 mg, DAILY sodium chloride 7% solution, 4 mL, BID clotrimazole, 10 mg, 5X/DAY salt and soda, 5-10 mL, q 6 H acetylcysteine, 200 mg, q 8 H guaiFENesin, 600 mg, q 12 H latanoprost, 1 Drop, AT BEDTIME atorvastatin, 40 mg, AT BEDTIME therapeutic multivitamin, 1 tablet, DAILY rOPINIRole, 3 mg, TID NaCl 0.9%, 3-5 mL, q 12 H piperacillin-tazobactam, 3.375 g, q 8 H melatonin, 3 mg, AT BEDTIME PRN albuterol, 2.5 mg, q 4 H PRN ondansetron (PF), 4 mg, q 6 H PRN metoclopramide HCl, 10 mg, q 6 H PRN polyethylene glycol 3350, 17 g, DAILY PRN perflutren lipid microspheres, 1.3 mL, DIRECTED PRN Infusion Medications: Micro BCx 10/[address] 12/24/2018 Spiculated right upper lobe subpleural nodule is mildly larg er and more consolidative in comparison to prior scans, and suspicious f or recurrence/growth. ?Notably, the nodule demonstrated residua l mild FDG avidity on a remote PET/CT from 01/15/2018 and previously se en groundglass components of the nodule are now replaced with s olid components. Interval resolution of diffuse centrilobular nodules and per ibronchial groundglass opacities compatible with resolved infection or aspiration. Stable 3 mm indeterminate left upper lobe nodule. ?New clust er of 2-4 mm centrilobular nodules in the RLL could be infectious/inflamm atory. ? Follow-up is suggested. ? CTA 10/31/2019 no pulmonary embolism arterial dissection. Spi culated nodule in the right upper lobe measuring approximately 1.5 cm, with a large loculated left hilar mass with atelectasis in the lingula an d left upper lobe, and a perihilar mass encasing the left pulmonary arter y, measuring 6.8 x 4.9 x 6.6 cm in size. Enlargement of mediastinal nodes , the largest measuring approximately 5.7 x 3.4 cm. Oncologic History - Right upper lobe non-small cell lung cancer (stage Ia) s/p SBRT (50 Gy in 5 fx) completed 03/22/16 -The patient continued to be monitored by CT, and showed no evidence of disease but a visible CT density continued to increase sligh tly over the previous CTs, though negative on PET uptake, concerning for post SBRT change vs progression of PET negative neoplasm -Was last seen by Dr. Sanchez, eventually on 04/23/2019 whe n he recommended CT-guided biopsy of this possible mass. The biop sy from 05/20/2019 showed focally infarcted tissue without granulomas or malignant cells. Chest CTA 10/30 showed new large loculated left hilar mass wi th atelectasis in the lingula and left upper lobe, and a perihilar mass enc asing the left pulmonary artery, measuring 6.8 x 4.9 x 6.6 cm in size. Also noted was enlargement of mediastinal nodes, the largest measuring appr oximately 5.7 x 3.4 cm. Assessment and Plan ? 79 year old male PMH of Right upper lobe non-small cell lung cancer (stage Ia) s/p SBRT (50 Gy in 5 fx) completed 03/29, who presented with SOB, found to have a large loculated left hilar mass with atelect asis in the lingula and left upper lobe, and encasing the left pulmonary artery, with possible postobstructive pneumonitis. ? # NSCLC # large lung mass Plan: MRI brain wo/w IV contrast NM pet whole body F/u pulm recs re EBUS ? # postobstructive pneumonia/pneumonitis # hypoxia CTA 10/30 w/ new large loculated left hilar mass with atelect asis in the lingula and left upper lobe, and a perihilar mass encasing t he left pulmonary artery, measuring 6.8 x 4.9 x 6.6 cm in size. Enla rgement of mediastinal nodes, the largest measuring approximately 5.7 x 3.4 cm. Strep pneumo urine AG neg Covid-19 neg Plan: Continuous pulse oxymetry F/u RSV panel, Legionella Ag urine Continue Zosyn 3.75 q6h ? # COPD - duoneb PRN and scheduled q4h ? # ADHF (acute decompensated heart failure) Weight gain 2+ pedal edema NT pro BNP 800s Plan: - TTE - Tele - Fluid restriction (<1.5 L), salt restriction (<2g) - Daily wgts - Strict I/Os - Suppl O2 to titrate O2>92%, CPAP/BiPAP if needed - continue home ARB - continue BB ? # thrombocytopenia Platelet Count (k/uL) Date Value 11/04/2019 99 (L) 11/03/2019 31 (L) 11/03/2019 33 (L) 11/02/2019 35 (L) 11/02/2019 36 (L) 11/01/2019 42 (L) 11/01/2019 42 (L) unclear precipitating factor Pathologist review: Normocytic Anemia With Moderate Polychro masia Thrombocytopenia Plan: CTM Consider heme consult hold AC ? # anemia Hemoglobin (g/dL) Date Value 11/04/2019 7.5 (L) 11/03/2019 7.7 (L) 11/03/2019 7.8 (L) s/p 1 unit pRBC transfusion 10/31, no overt sign of bleeding DIC labs unrevealing (elevated fibrinogen, d dimer but CT PE was negative) Iron studies unrevealing : Iron, TIBC WNL Plan: CTM Daily CBC Consider heme consult, bone marrow biopsy? ? ? # CARO 2/2 aggressive diuresis due to orthopnea, PND Plan: Strict I/O Hold diuresis # pAfib AMET called for afib with RVR HR 156 overnight of 11/02 AMET called, given 5 mg IV metoprolol x2, spontaneously converted to NSR Currently on 25 mg metoprolol tartrate BID Home: metoprolol succinate, apixiban 5 mg BID Plan: Continue rate control with metop tartrate, uptitrate as neee ded Hold AC due to thrombocytopenia Rounding Checklist: Diet/Nutrition: heart healthy Mobility status: mobile VTE Prophylaxis: deferred due to thrombocytopenia Pain management: tylenol Glycemic control: SSI Code Status: full Dispo Planning: pending 10/31/19 1215 vte pharmacologic prophylaxis contraindicated (ky,wi) 10/31/19 1215 pneumatic compression stockings (ky,wi) 10/31/19 1215 activity - mobilize patient ([place], [place]) SIGNATURE: Skylar Seay MD PHD PGY-1 PATIENT NAME: Tiana medina DATE: 11/04/2019 TIME: 7:58 AM PAGER: [phone] Note: These recommendations are not final until staffed by max harris HEMATOLOGY/MEDICAL ONCOLOGY/[facility] BRAIN TUMOR CENTER STA FF: STAFF PHYSICIAN NOTE OF PERSONAL INVOLVEMENT IN CARE I have reviewed the progress note obtained and documented by the Resident and I personally participated in the kelley components. I have discussed the case and management of the patient's care with the Resident. The following comments revise or confirm relevant kelley components of the Re sident's note. IMPRESSION/PLAN: Bronch achieved without stenting. Prelim pa th SCLC which should be sensitive to chemotherapy hopefully allowing airwa y to open. Will check for clinical trial for ES-SCLC. COPD management i n progress. Thrombocytopenia possibly [place] [id number] phosphorus on 11-03 Phosphate [Mass/Vol] 3.1 2.7-4.8 mg/dL Normal 0 [facility] ([id number]) Comment: Performed By: #### CBC, PT, MG1, PHOS ####[facility] [address] [place] [address] [phone] magnesium on 2019-11-03 Magnesium [Mass/Vol] 2.9 1.7-2.3 mg/dL High 0 [facility] ([id number]) Comment: Performed By: #### CBC, PT, MG1, PHOS ####[facility] [address] [place] [address] [phone] cytology on 2019-10 CYTOLOGY Specimen originated from [facility] Normal 11-04-2019 [place] Specimen #: [id number] Clinic Submitting Physician: LIZANDRO CRUZ M.D. [place] SPECIMEN SUBMITTED ( [id number]) A: BRONCHIAL, #21 SUPERTRAX,TBNA,LEFT MAINSTEM MASS FINE NEE DLE ASPIRATE (THINPREP, SMEARS AND CELL BLOCK) FINAL DIAGNOSIS A. BRONCHIAL, #21 SUPERTRAX,TBNA,LEFT MAINSTEM MASS FINE NEE DLE ASPIRATE (THINPREP, SMEARS AND CELL BLOCK) Positive for malignant cells. Small cell carcinoma. Comment: Immunostains with appropriate controls were perform ed on the cell block material. The malignant cells are positive for cytoker atin AE1/3, CD56, TTF-1, INSM-1 and synaptophysin and are negative for c hromogranin. These results further support the above diagnosis. Selected slides from this specimen were reviewed in consultation with Dr. Vesta jain via telepathology, who concurs. Laboratory Developed Test (LDT) Disclaimer: (cytokeratin AE1 /3, TTF-1, INSM-1, chromogranin, synaptophysin) Positive and negative controls stain appropriately. Performa nce characteristics of immunohistochemical, immunofluorescent an d chromogenic in-situ hybridization tests have been determined by [facility]'s [facility] (RT-PLDE) in a manner consistent with CLIA requirements. One or more of these tests have not been cleared or approved by the FDA. -[facility] is regula alejandrina under CLIA as qualified to perform high-complexity testing. These tests ar e used for clinical purposes. They should not be regarded as investigat ional or for research. No validation on specimen type or on patient population (CD5 6) Positive and negative controls stain appropriately. One or m ore of these tests have not been validated for the specimen type submitte d or its clinical utility has not been established for this patient p opulation. The test results should be interpreted with caution and in the c ontext of the patient's clinical condition. Coco Fisher M.D. (Electronic Signature) CLINICAL DATA Lung mass *hold RPMI for flow ADEQUACY INTERPRETATION DIFF QUIK RAPID READ A: #1 Atypical cells present #2 Suspicious for malignancy #3 Positive for malignancy, requested flow #4 Acute inflammation / Each letter in the above intra-procedural assessment refers to a unique site. The specific site is indicated in the final diagnosis portion of the report. Each number in this assessment references a discrete evaluation episode. Intra-procedural assessment performed at [facility], [facility] [place] [address] GROSS DESCRIPTION A: 30cc clear pink CytoLyt with particles and 8 smears (4 Di ff Quik and 4 pap stained) RPMI received. Hold for FLOW STAINS A: BRONCHIAL, #21 SUPERTRAX,TBNA,LEFT MAINSTEM MASS FINE NEE DLE ASPIRATE (THINPREP, SMEARS AND CELL BLOCK) SMEARS RECEIVED x 8, THIN PREP Non-Tobacco Cloth Reclaimer, CELL BLOCK, H&E, Ini tial, CYTOKERATIN AE1&3, CD56, TTF1, CHROMOGRANIN, SYNAPTOPHYSIN, INSM1 Date of Report: 11/05/2019 Date of Procedure: 11/04/2019 Date of Receipt: 11/04/2019 Submitted by: LIZANDRO CRUZ M.D. Additional Physician(s): SHAHEEN ROSENBERG Location: PULMONARY MAIN Diagnostic interpretation performed at [facility], [address] [place] [address]. CLIA Number: [id number] cbc on 2019-11-04 Absolute nRBC 0.96 <0.01 k/uL High 11-04-2019 [facility] ([id number]) Comment: Performed By: #### CBC ####C [facility] [address] [place], [place] [phone] Erythrocyte distribution 29.9 11.5-15.0 % High 11-03 [facility] width (RBC) [Ratio] [place] ([id number]) Comment: Performed By: #### CBC ####[address] [place], [place] [phone] Hematocrit (Bld) [Volume 27.9 39.0-51.0 % Low 11-03 [facility] fraction] ([id number]) Comment: Performed By: #### CBC ####C [address] [phone] Hemoglobin (Bld) 7.9 13.0-17.0 g/dL Low 11-04-2019 [facility] [Mass/Vol] [place] ([id number]) Comment: Performed By: #### CBC ####C [address] [phone] MCH (RBC) [Entitic mass] 23.6 26.0-34.0 pG Low 11-03 [facility] ([id number]) Comment: Performed By: #### CBC ####C [place] [phone] MCHC (RBC) [Mass/Vol] 28.3 30.5-36.0 g/dL Low 11-04-19 20 [facility] ([id number]) Comment: Performed By: #### CBC ####C [address] [phone] MCV (RBC) [Entitic vol] 83.3 80.0-100.0 fL Normal 11-03 [facility] ([id number]) Comment: Performed By: #### CBC ####C [address] [phone] Platelet mean <<DO NOT REPORT>> 9.0-12.7 Normal 11-04-19 20 [facility] volume (Bld) Roderick edwards ([id number]) [Entitic vol] Comment: Performed By: #### CBC ####C [address] [phone] Platelets (Bld) [#/Vol] 87 150-400 k/uL Low 2019 [facility] ([id number]) Comment: Result Comment: Result check ed and verified No clot detected. Performed By: #### CBC ####C [place] [phone] RBC (Bld) [#/Vol] 3.35 4.20-6.00 m/uL Low 11-04-2019 [facility] ([id number]) Comment: Performed By: #### CBC ####C [place] [phone] WBC (Bld) [#/Vol] 10.71 3.70-11.00 k/uL Normal 11-04-2019 [facility] ([id number]) Comment: Performed By: #### CBC ####C [place] [phone] Absolute nRBC 1.00 <0.01 k/uL High 11-04-2019 [facility] ([id number]) Comment: Performed By: #### CBC, PT, MG1, PHOS ####[place] [address] [phone] Erythrocyte distribution 29.7 11.5-15.0 % High 11-03 [facility] width (RBC) [Ratio] [place] ([id number]) Comment: Performed By: #### CBC, PT, MG1, PHOS ####[address] [address] [phone] Hematocrit (Bld) [Volume 26.0 39.0-51.0 % Low 11-03 [facility] fraction] ([id number]) Comment: Performed By: #### CBC, PT, MG1, PHOS ####[address] [address] [phone] Hemoglobin (Bld) 7.5 13.0-17.0 g/dL Low 11-04-2019 [facility] [Mass/Vol] [place] ([id number]) Comment: Performed By: #### CBC, PT, MG1, PHOS ####[place] [address] [address] [place] [address] MCH (RBC) [Entitic mass] 24.0 26.0-34.0 pG Low 11-03 [facility] ([id number]) Comment: Performed By: #### CBC, PT, MG1, PHOS ####[place] [address] [address] [place] [address] MCHC (RBC) [Mass/Vol] 28.8 30.5-36.0 g/dL Low 11-04-19 20 [facility] ([id number]) Comment: Performed By: #### CBC, PT, MG1, PHOS ####[address] [place] [place] [address] [phone] MCV (RBC) [Entitic vol] 83.3 80.0-100.0 fL Normal 11-03 [facility] ([id number]) Comment: Performed By: #### CBC, PT, MG1, PHOS ####[place] [address] [phone] Platelet mean <<DO NOT REPORT>> 9.0-12.7 Normal 11-04-19 [facility] volume (Bld) [place] ([id number]) [Entitic vol] Comment: Performed By: #### CBC, PT, MG1, PHOS ####[address] [place] [address] [phone] Platelets (Bld) [#/Vol] 99 150-400 k/uL Low 2019 [facility] ([id number]) Comment: Result Comment: Result check ed and verified No clot detected. Performed By: #### CBC, PT, MG1, PHOS ####[address] [address] RBC (Bld) [#/Vol] 3.12 4.20-6.00 m/uL Low 11-04-2019 [facility] ([id number]) Comment: Performed By: #### CBC, PT, MG1, PHOS ####[facility] [address] [place], [place] [phone] WBC (Bld) [#/Vol] 11.16 3.70-11.00 k/uL High 11-04-2019 [facility] ([id number]) Comment: Performed By: #### CBC, PT, MG1, PHOS ####[facility] [address] [place], [place] [address] [phone] anes post on 11-03 ANES POST HNO ID: [id number] Normal 11-04-2019 [facility] Author: Meghana Fabian [place] ([id number]) Service: Anesthesiology Author Type: Anesthesiologist Type: Anesthesia PostOp Filed: 11/04/2019 4:24 PM Note Text: POST ANESTHESIA EVALUATION NOTE SERVICE DATE: 11/04/2019 SERVICE TIME: 15:50 : 1940 Vitals: 11/04/19 0538 11/04/19 0959 11/04/19 13411/04/19 1541 Temp: 36.6 ?C (97.9 ?F) 36.6 ?C (97.9 ?F) 36.7 ?C (98.1 ?F) 36 ?C (96.8 ?F) 11/04/19 1341 11/04/19 1541 11/04/19 1545 11/04/19 1600 BP: 175/90 158/98 189/96 179/91 11/04/19 1341 11/04/19 1541 11/04/19 1545 11/04/19 1600 Pulse: 74 85 89 92 11/04/19 1341 11/04/19 1541 11/04/19 1545 11/04/19 1600 Resp: 18 18 18 18 11/04/19 1341 11/04/19 1541 11/04/19 1545 11/04/19 1600 SpO2: 96% 100% 96% 95% Validated Vital Signs: Yes POST ANES STATUS: No apparent anesthetic complications. The patient is appropriately hydrated with stable respiratory and cardiovas cular status. Patient has safe and adequate airway control. The patient hoang s appropriate pain relief and no significant post operative nausea or vomi ting. The patient has achieved baseline mental status. Intra-Operative Events: No Significant Anesthesia Events Further assessment by Anesthesia Service: None Other Remarks: SIGNATURE: Meghana Fabian MD PATIENT NAME: Tiana banegas DATE: November 04, 2019 TIME: 4:23 PM PAGER/CONTACT #: [id number] xr chest 1v frontal port on 2019-11-03 XR CHEST 1V * * *Final Report* * * Normal 11-02 [facility] FRONTAL PORT DATE OF EXAM: Nov 03 2019 8:24AM [place] ([id number]) YENY [id number] - XR CHEST 1V FRONTAL PORT / PROCEDURE REASON: Shortness of breath * * * * Physician Interpretation * * * * EXAMINATION: CHEST RADIOGRAPH (PORTABLE SINGLE VIEW AP) Exam Date/Time: 11/03/2019 8:24 AM Clinical History: Shortness of breath MQ: [id number] Comparison: 1 day prior RESULT: Lines, tubes, and devices: None. Lungs and pleura: Stable left-sided volume loss including el evation of the left hemidiaphragm and leftward shift of the heart and m ediastinum, consistent with left upper lobe atelectasis/collapse as seen on the prior chest CT. A component of postobstructive pneumonia may also contribute. Blunting of the left costophrenic angle is probably due to a small pleural effusion. Mild atelectasis at the right lung base. A n indeterminate nodule projects over the right upper lobe, sta ble. No pulmonary edema. No pneumothorax. Cardiomediastinal silhouette: Stable cardiomediastinal silho uette. Leftward shift of the heart and mediastinum is unchanged. Le ft hilar lymphadenopathy and mediastinal lymphadenopathy seen on the prior chest CT is not well assessed on this exam. The thoracic aorta is atherosclerotic. Other: . IMPRESSION: See result. 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 System: SCOOBY Transcribe Date/Time: Nov 03 2019 9:45A Dictated by : KATIE LUNA MD This examination was interpreted and the report reviewed and electronically signed by: KATIE LUNA MD on Nov 03 2019 9:47AM EST [id number] us chest effusion survey on 2019-11-03 US CHEST * * *Final Report* * * Normal 020 [facility] EFFUSION SURVEY DATE OF EXAM: Nov 03 2019 1:26PM [place] ([id number]) [facility] [place] CHEST EFFUSION SURVEY / PROCEDURE REASON: Pleural effusion * * * * Physician Interpretation * * * * LIMITED CHEST ULTRASOUND HISTORY: Shortness of breath. Evaluate pleural effusion for possible thoracentesis. TECHNIQUE: Targeted sonography of the chest was performed. I mages were obtained and stored in a permanent archive. RESULT: See impression IMPRESSION: Right hemithorax: There is no right pleural fluid. Left hemithorax: There is moderate left pleural fluid. With the patient seated upright, and the transducer oriented perpendicular to the left chest wall at the X, the followi ng measurements were obtained: Depth to enter the fluid collection: 3.0 cm Depth to mid fluid collection: 4.4 cm 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 System: SCOOBY Transcribe Date/Time: Nov 03 2019 1:40P Dictated by : NAYELI MONTALVO MD This examination was interpreted and the report reviewed and electronically signed by: NAYELI MONTALVO MD on Nov 03 2019 1:42PM EST [id number] therapy nt on 11-02 THERAPY NT HNO ID: [id number] Normal 11-03-2019 [facility] Author: Jamarcus JasminePt) Vannesa Lock ([id number]) Service: Physical Therapy Author Type: Physical Therapist Type: Therapy (PT/OT/Speech/Resp) Filed: 11/03/2019 10:09 AM Note Text: PHYSICAL THERAPY MISSED VISIT SERVICE DATE: 11/03/2019 SERVICE TIME: 1006 to 1006 ROOM: [place] [address] ([facility] Nuclear Medicine) Attempted Evaluation. Patient not seen due to Test/Procedure . Pt with AMET overnight, now off floor. PT to follow up as able / appropri ate. SIGNATURE: Jamarcus Granado PT PATIENT NAME: Tiana Martínez DATE: November 03, 2019 TIME: 10:09 AM reticulocyte on Abs Retic 0.117 0.0180-0.1000 M/uL High 11-03-2019 [facility] ([id number]) Comment: Performed By: #### CBC, RETI C ####[facility] [address], [place] [phone] Retic% 3.7 0.4-2.0 % High 11-02-2019 [facility] ([id number]) Comment: Performed By: #### CBC, RETI C ####[facility], [place] [phone] protime on PT Coag (PPP) [Time] 1.0 0.9-1.3 s Normal 0 [facility] ([id number]) Comment: Result Comment: Vitamin K An tagonist (VKA) Therapeutic Range: INR 2 to 3 (Target INR of 2.5) Note: For patients treated w ith VKA drugs, such as warfarin, the [employer] 2012 Guideline recommends a therapeutic INR range of 2 to 3 (target INR of 2.5). This recommendation includes high-risk patients with antiphospholipid syndrome with previous arterial or venous thromboembolism, current-generation mechanical or bioprosthetic aortic heart valve replacement. Note: Patients with toll mechanic al aortic valve replacement and additional risk factors for thromboembolic events (atrial fibrillation, previous thromboembolism, LV dysfunction, hypercoagulable conditions) or an older generation mecha nical AVR (i.e., ball in-Cage) or any mechanical MVR should have a INR therapeutic range of 2.5 to 3.5 (target INR of 3). Vitaliy GH, et al. Chest 2012 , 141:7S-47S Janet RA, et al. [facility] 20 17, 70: [phone] Performed By: #### PT, CBC, BMP, MG1, PHOS ####[facility] [address] [place], [place] [phone] PT Coag (PPP) [Time] 10.4 9.7-13.0 sec Normal 0 [facility] ([id number]) Comment: Performed By: #### PT, CBC, BMP, MG1, PHOS ####[facility] [address] [place], [place] [phone] progress on 2019-10 PROGRESS HNO ID: [id number] Normal 11-03-2019 [facility] Author: Skylar Sharif (Res) MD Dawood [place] ([id number]) Service: Oncology Author Type: Resident Type: Progress Notes Filed: 11/03/2019 10:42 AM Note Text: Solid Tumor Oncology 1 Progress Note Progress Note PATIENT NAME: Tiana Martínez PRIMARY SERVICE: STO1 ADMISSION DAY 10/31/2019 HOSPITAL DAY: 3 CODE STATUS: Full Plan for Today (11/02/2019) - hold diuresis given CARO and no improvement in respiratory status with diuresis - monitor weights, I/O - NPO for bronch, EBUS - sputum cytology and cultures - consult radiation oncology after EBUS - monitor h/h BID - continue scheduled duonebs - continue zosyn - continue metoprolol, uptitrated to 25 mg tartrate BID for rate control - f/u NM PET whole body, MRI brain today Interval Events - AMET called for afib with RVR HR 156 overnight, self conve rted to NSR after 5 mg metoprolol IV x2, - Hgb responded appropriately to 1 unit pRBC, Hemoglobin (g/dL) Date Value 11/03/2019 7.8 (L) 11/02/2019 7.7 (L) 11/02/2019 7.8 (L) - platelets continue to downtrend Platelet Count (k/uL) Date Value 11/03/2019 33 (L) 11/02/2019 35 (L) 11/02/2019 36 (L) 11/01/2019 42 (L) 11/01/2019 42 (L) 10/31/2019 41 (L) 05/15/2019 249 - was unable to lay flat for his MRI due to worsening SOB - 24 hour Vitals: Vital Signs (last filed) Range in last 24h Temp: 36.5 ?C (97.7 ?F) (11/03/19 0548) Temp Min: 36.5 ?C (9 7.7 ?F) Max: 37 ?C (98.6 ?F) Pulse: 71 (11/03/19 0548) Pulse Min: 71 Max: 101 BP: 137/79 (11/03/19 0548) BP Min: 133/62 Max: 153/66 Resp: 16 (11/03/19 0548) Resp Min: 16 Max: 20 SpO2: 99 % (11/03/19 0548) SpO2 Min: 98 % Max: 100 % Physical Exam BP 137/79 Pulse 71 Temp 36.5 ?C (97.7 ?F) (Oral) Resp 16 SpO2 99% General appearance: in NAD, speaking in full coherent senten dhiraj, nondiaphoretic, cooperative with appropriate affect HEENT: anicteric sclera, EOMI, MMM. Non-cyanotic lips. Tongu e and posterior oropharynx normal. Teeth normal. Respiratory: Diminished breath sounds in NORY, LIL, LLL, Diff use expiratory wheezes. Diaphragmatic excursion and chest wall symmetry myriam ear equal and normal. No accessory muscle use. On 2L O2. Cardiovascular: RRR without gallop, or rubs or murmur. Non-d isplaced PMI. No parasternal heave. No carotid, abdominal aortic, femoral bruits noted. Normal pedal pulses bilaterally. 2+ peripheral edema noted i n the upper or lower extremities. Normal temperature of all 4 extremitie s. Abdomen/GI: Abdomen soft, non-tender, non-distended. No mass es or organomegaly noted. No hepatojugular reflux, no ascites Extremities: No clubbing or cyanosis of fingers. No cracking , pitting or petechiae on fingers. Capillary refill <2 sec bilaterally. Musculoskeletal: Spine shows no kyphosis or scoliosis. Muscl es show no clear abnormality. Skin:No petechiae, ecchymoses, rash noted. No jaundice, no p almar erythema, no spider angiomas. Neurologic: AOx3, able to vocalize, moves all extremities,?n o asterixis Psychiatric: no abnormalities with mood with congruent affec t Fluid Balance Intake/Output Summary (Last 24 hours) at 11/03/2019 1031 Last data filed at 11/03/2019 0722 Gross per 24 hour Intake 1120 ml Output 2800 ml Net -1680 ml Last Admit Weight change: Historical weights (outpatient/ED visits) Last 8 Encounter Wt Readings: Date: Wt: 06/11/2019 90.7 kg (200 lb) 04/24/2019 88.5 kg (195 lb) 12/31/2018 83.2 kg (183 lb 8 oz) 05/02/2018 83.5 kg (184 lb) 12/21/2017 85.3 kg (188 lb) 12/21/2017 85.3 kg (188 lb) 12/01/2016 86.6 kg (191 lb) 11/20/2016 87.1 kg (192 lb) Intake/Output 10/31/19 0700 - 11/01/19 0659 11/01/19 0700 - 11/02/19 0659 11/02/19 0700 - 11/03/19 0659 11/03/19 0700 - 11/04/19 0659 Intake (ml) 50 850 1360 ? Output (ml) 205 227 9847 200 Net (ml) -902 300 -1440 -200 Labs CBC: Recent Labs 11/03/19 0115 11/02/19 2305 11/02/19 0544 11/01/19 2142 11/01/19 0330 10/31/19 1357 WBC 10.08 10.56 9.84 9.13 8.48 9.17 HB 7.8* 7.7* 7.8* 7.3* 6.4* 7.2* HCT 26.6* 25.9* 26.0* 24.4* 22.6* 25.4* PLT 33* 35* 36* 42* 42* 41* MCV 80.9 80.9 80.0 81.1 81.6 80.9 RDWCV 29.0* 28.9* 28.9* 29.2* 29.2* 29.2* NEUTP -- -- -- -- 70.0 73.0 ABSNEUT -- -- -- -- 5.94 6.69 LYMPHP -- -- -- -- 22.0 19.0 MONOP -- -- -- -- 5.0 4.0 EODINP -- -- -- -- 0.0 1.0 COAG: Recent Labs 11/03/19 0115 11/01/19 0330 10/31/19 1357 APTT -- 26.2 -- INR 1.0 -- 1.0 BMP: Recent Labs 11/03/19 0115 11/02/19 0544 11/01/19 0330 10/31/19 1357 10/31/19 1343 GLUC 179* 144* 149* 145* -- NA 141 143 146* 146* -- K 3.0* 3.3* 3.4* 3.4* -- CHLOR 100 103 105 107* -- CO2 27 24 29 28 31* ANION 14 16 12 11 -- BUN 35* 38* 39* 41* -- CREAT 1.26* 1.18 1.40* 1.18 -- CHEM: Recent Labs 11/03/19 0115 11/02/19 0544 11/01/19 0330 10/31/19 1357 ALB -- -- -- 3.0* TPROT -- -- -- 5.5* CA 9.8 9.5 9.5 9.4 MG 2.5* -- -- -- HEPATIC: Recent Labs 10/31/19 1357 ALKPHOS 108 ALT 56* AST 141* TBILI 0.4 Medications Scheduled metoprolol tartrate (short acting), 25 mg, q 12 H potassium chloride ER, 40 mEq, q 4 H magnesium oxide, 800 mg, DAILY salt and soda, 5-10 mL, q 6 H ipratropium-albuterol, 3 mL, q 4 H while awake acetylcysteine, 200 mg, q 8 H guaiFENesin, 600 mg, q 12 H latanoprost, 1 Drop, AT BEDTIME atorvastatin, 40 mg, AT BEDTIME therapeutic multivitamin, 1 tablet, DAILY rOPINIRole, 3 mg, TID NaCl 0.9%, 3-5 mL, q 12 H piperacillin-tazobactam, 3.375 g, q 8 H melatonin, 3 mg, AT BEDTIME PRN ipratropium-albuterol, 3 mL, q 4 H PRN ondansetron (PF), 4 mg, q 6 H PRN metoclopramide HCl, 10 mg, q 6 H PRN polyethylene glycol 3350, 17 g, DAILY PRN perflutren lipid microspheres, 1.3 mL, DIRECTED PRN Infusion Medications: Micro BCx 10/[address] 12/24/2018 Spiculated right upper lobe subpleural nodule is mildly larg er and more consolidative in comparison to prior scans, and suspicious f or recurrence/growth. ?Notably, the nodule demonstrated residua l mild FDG avidity on a remote PET/CT from 01/15/2018 and previously se en groundglass components of the nodule are now replaced with s olid components. Interval resolution of diffuse centrilobular nodules and per ibronchial groundglass opacities compatible with resolved infection or aspiration. Stable 3 mm indeterminate left upper lobe nodule. ?New clust er of 2-4 mm centrilobular nodules in the RLL could be infectious/inflamm atory. ? Follow-up is suggested. ? CTA 10/31/2019 no pulmonary embolism arterial dissection. Spi culated nodule in the right upper lobe measuring approximately 1.5 cm, with a large loculated left hilar mass with atelectasis in the lingula an d left upper lobe, and a perihilar mass encasing the left pulmonary arter y, measuring 6.8 x 4.9 x 6.6 cm in size. Enlargement of mediastinal nodes , the largest measuring approximately 5.7 x 3.4 cm. Oncologic History - Right upper lobe non-small cell lung cancer (stage Ia) s/p SBRT (50 Gy in 5 fx) completed 03/22/16 -The patient continued to be monitored by CT, and showed no evidence of disease but a visible CT density continued to increase sligh tly over the previous CTs, though negative on PET uptake, concerning for post SBRT change vs progression of PET negative neoplasm -Was last seen by Dr. Sanchez, eventually on 04/23/2019 whe n he recommended CT-guided biopsy of this possible mass. The biop sy from 05/20/2019 showed focally infarcted tissue without granulomas or malignant cells. Chest CTA 10/30 showed new large loculated left hilar mass wi th atelectasis in the lingula and left upper lobe, and a perihilar mass enc asing the left pulmonary artery, measuring 6.8 x 4.9 x 6.6 cm in size. Also noted was enlargement of mediastinal nodes, the largest measuring appr oximately 5.7 x 3.4 cm. Assessment and Plan ? 79 year old male PMH of Right upper lobe non-small cell lung cancer (stage Ia) s/p SBRT (50 Gy in 5 fx) completed 03/29, who presented with SOB, found to have a large loculated left hilar mass with atelect asis in the lingula and left upper lobe, and encasing the left pulmonary artery, with possible postobstructive pneumonitis. ? # NSCLC # large lung mass Plan: MRI brain wo/w IV contrast NM pet whole body F/u pulm recs re EBUS ? # postobstructive pneumonia/pneumonitis # hypoxia CTA 10/30 w/ new large loculated left hilar mass with atelect asis in the lingula and left upper lobe, and a perihilar mass encasing t he left pulmonary artery, measuring 6.8 x 4.9 x 6.6 cm in size. Enla rgement of mediastinal nodes, the largest measuring approximately 5.7 x 3.4 cm. Strep pneumo urine AG neg Covid-19 neg Plan: Continuous pulse oxymetry F/u RSV panel, Legionella Ag urine Continue Zosyn 3.75 q6h ? # COPD - duoneb PRN and scheduled q4h ? # ADHF Weight gain 2+ pedal edema NT pro BNP 800s Plan: - TTE - Tele - Fluid restriction (<1.5 L), salt restriction (<2g) - Daily wgts - Strict I/Os - Suppl O2 to titrate O2>92%, CPAP/BiPAP if needed - continue home ARB - continue BB ? # thrombocytopenia Platelet Count (k/uL) Date Value 11/03/2019 33 (L) 11/02/2019 35 (L) 11/02/2019 36 (L) 11/01/2019 42 (L) 11/01/2019 42 (L) 10/31/2019 41 (L) 05/15/2019 249 unclear precipitating factor Pathologist review: Normocytic Anemia With Moderate Polychro masia Thrombocytopenia Plan: CTM Consider heme consult hold AC ? # anemia Hemoglobin (g/dL) Date Value 11/03/2019 7.8 (L) 11/02/2019 7.7 (L) 11/02/2019 7.8 (L) s/p 1 unit pRBC transfusion 10/31, no overt sign of bleeding DIC labs unrevealing (elevated fibrinogen, d dimer but CT PE was negative) Iron studies unrevealing : Iron, TIBC WNL Plan: CTM Daily CBC Consider heme consult, bone marrow biopsy? ? ? # CARO 2/2 aggressive diuresis due to orthopnea, PND Plan: Strict I/O Hold diuresis # pAfib AMET called for afib with RVR HR 156 overnight of 11/02 AMET called, given 5 mg IV metoprolol x2, spontaneously converted to NSR Currently on 25 mg metoprolol tartrate BID Home: metoprolol succinate, apixiban 5 mg BID Plan: Continue rate control with metop tartrate, uptitrate as neee ded Hold AC due to thrombocytopenia Rounding Checklist: Diet/Nutrition: heart healthy Mobility status: mobile VTE Prophylaxis: deferred due to thrombocytopenia Pain management: tylenol Glycemic control: SSI Code Status: full Dispo Planning: pending 10/31/19 1215 vte pharmacologic prophylaxis contraindicated (ky,[place]) 10/31/19 1215 pneumatic compression stockings ([place], [place]) 10/31/19 1215 activity - mobilize patient ([place], [place]) SIGNATURE: Skylar Seay MD PHD PGY-1 PATIENT NAME: Tiana medina DATE: 11/03/2019 TIME: 7:58 AM PAGER: [phone] Note: These recommendations are not final until staffed by max GUTIÉRREZ HNO ID: [id number] [place] 11-03-2019 [facility] Author: Simi JasmineGreene Memorial HospitalRei Rivera [place] ([id number]) Service: Nuclear Medicine Author Type: High School Music Director Type: Progress Notes Filed: 11/03/2019 9:01 AM Note Text: RADIOLOGY SERVICE PROGRESS NOTE SERVICE DATE: 11/03/2019 SERVICE TIME: 9:00 AM PATIENT IDENTITY VERIFICATION COMPLETED USING TWO (2) [address] RD IDENTIFIERS: Name and Date of confirmed by patient nida bally FALL SCREENING: Has the patient had 2 falls in the last year or 1 fall with injury or currently using an Ambulatory Assistive Devic e (Walker, Cane, Wheelchair, Crutches, etc.)? No PATIENT GENDER DATA: .male : No ALLERGIES: Reviewed and unchanged MEDICATIONS REVIEWED: No PATIENT RELEVANT IMPLANT DATA REVIEWED: Not Applicable CREATININE: Creatinine Date Value Ref Range Status 11/03/2019 1.26 (H) 0.73 - 1.22 mg/dL Final 11/02/2019 1.18 0.73 - 1.22 mg/dL Final 11/01/2019 1.40 (H) 0.73 - 1.22 mg/dL Final eGFR-All Other Races Date Value Ref Range Status 11/03/2019 55 . Final Comment: eGFR (Estimated GFR) Units of measure: mL/min/1.73 meters sq uared eGFR is derived from the reexpressed MDRD Study equation usi ng the following parameters: serum creatinine, age, gender and race. The crea tinine assay has been calibrated to be traceable to IDMS. An eGFR <60 mL/min/1.73m2 for >3 months is consistent with c hronic kidney disease. Refer to KDOQI guidelines for clinical interpretati on. In patients with unstable renal function, e.g. those with ac [place] kidney injury, the eGFR may not accurately reflect actual GFR. eGFR- Date Value Ref Range Status 11/03/2019 >60 Final P.O.C.T. RESULTS: N/A November 03, [address] PERFORMED: No IV SITE: Inpatient - refer to LDA documentation POST EXAM PIV STATUS: Inpatient see LDA documentation PROCEDURE TYPE: NM INJECT: PET/CT BODY SCAN. 11.8 mCi F18 FD G. No other medications given.. ADMINISTRATION TIME: 08:53 PATIENT DISCHARGED TO: Patient taken to IP transport area fo r return to RNF/ICU/ED. A Diagnostic radioactive procedure has taken place, with no further precautions necessary other than routine body substance prec autions. More information regarding radiation safety can be found using is link: [email or web address] SIGNATURE: Rei Vidal PATIENT NAME: Tiana castorena DATE: November 03, 2019 TIME: 9:00 AM PAGER/CONTACT #: plan of care on PLAN OF CARE HNO ID: [id number] Normal 11-03-19 20 [facility] Author: Levy (Mckenna) Yadira Lock ([id number]) Service: Oncology Author Type: Resident Type: Plan of Care Filed: 11/03/2019 1:22 PM Note Text: Point of Contact Update Family update was conducted with son, Mr. Martínez, at the bed side today given his presence in person in the hospital. Discussed brie fly the results of the recently completed whole body PET scan inclus favio of imaging findings consistent with diffuse osseous metastatic disease as well as liver involvement. Plan moving forward remains to follow up Pulmonary recommendations, pleural effusion assessment by ultrasonogra phy, as well as consultation to Radiology colleagues regarding potential biopsy of supraclavicular lymph node for definitive diagnosis. No furt her questions at this time. Levy May MD phosphorus on 11-02 Phosphate [Mass/Vol] 3.6 2.7-4.8 mg/dL Normal 0 [facility] ([id number]) Comment: Performed By: #### PT, CBC, BMP, MG1, PHOS ####[facility] [address] [place], [place] [phone] nursing prog on NURSING HNO ID: [id number] [place] 11-03-2019 [facility] Author: Clau JasmineRn) [facility] Service: [facility] Author Type: Registered Nurse ([id number]) Type: Nursing Progress Note Filed: 11/04/2019 2:17 AM Note Text: Nursing Progress Note Patient Name: Tiana Martínez Patient Location: [place] [address] [address] Daily Note: 2100 2 units platelets administered per order. No s/sx trans fusion reaction. This note was completed by: Clau Soriano RN NURSING HNO ID: [id number] [place] 11-03-2019 [facility] Author: Trina JasmineRn) [facility] Service: Jovan yo Author Type: Registered Nurse ([id number]) Type: Nursing Progress Note Filed: 11/03/2019 5:11 PM Note Text: This RN instructed Katie RN on pt having bronch tomorrow . Pt not on blood thinner. Verbalized understanding of said instr uctions. NURSING HNO ID: [id number] [place] 11-03-2019 [facility] Author: Clau Hernandez) [facility] Service: [facility]ovan [facility] Author Type: Registered Nurse ([id number]) Type: Nursing Progress Note Filed: 11/03/2019 4:38 AM Note Text: Nursing Progress Note Patient Name: Tiana Martínez Patient Location: [place] [address]/[id number] Daily Note: 0026 A Fib RVR HR 156. Pt sitting in chair. Denies chest bobbi n. AMET activated. See AMET note. 0045 NSR HR 66. Will continue to monitor. 0256 A Fib rate controlled HR 86. MD Windy aware. No new orders at this time. Will continue to monitor. This note was completed by: Clau Soriano RN nm pet/ct whole body init on 2019-11-03 NM PET/CT WHOLE * * *Final Report* * * Normal 0 11-03-2019 [facility] BODY INIT DATE OF EXAM: Nov 03 2019 10:03AM [place] ([id number]) N 0061 - NM PET/CT WHOLE BODY INIT / PROCEDURE REASON: Non-small cell lung cancer, pathologic dx, staging * * * * Physician Interpretation * * * * EXAMINATION: REGIONAL BODY FDG PET/CT SCAN: (11/03/2019 10:22 AM) HISTORY: 79 years old Male with Non-small cell lung cancer, pathologic dx, staging. INDICATION: Study performed for subsequent treatment strateg y. TECHNIQUE: F18-FDG administered IV was followed about 60 min utes later by PET imaging from eyes to proximal thighs. Free breathing low dose CT was performed without contrast for attenuation correction and an atomic localization. Blood glucose before FDG injection: 175 mg/dL FDG radionuclide dose: 11.[address] Dose-Length Product (DLP): 280 mGy*cm. CT Dose Reduction Employed: Automated exposure control (AEC) was used COMPARISON: FDG PET/CT dated 04/01/2019 CORRELATION: None. RESULT: NECK: Physiologic FDG uptake seen in the visualized brain, parapha ryngeal soft tissues, base of tongue, vocal cords, and salivary glands. There is a new hypermetabolic 1.2 x 0.8 cm left supraclavicu lar lymph node (maximum SUV 4.8, 3:199, 4:73). No other hypermetabolic cervical lymphadenopathy or masses. Again seen is a hypermetabolic nodule in the inferior left t hyroid lobe (maximum SUV 6.4, previously 11.0) CHEST: Physiologic FDG uptake in the heart and mediastinum. Lungs and tracheobronchial tree: There is a 1.2 x 1.1 cm spi culated right upper lobe pulmonary nodule with mild FDG uptake (maximum [place] V 1.8, previously 2.3), relatively stable since . There is collapse of the left upper lobe with a central lobu lated collection of intense FDG activity (maximum SUV 7.1) measuri ng approximately 5.0 x 5.0 x 4.2 cm that is inseparable from hy permetabolic mediastinal and left pulmonary hilar lymphadenopathy, suspic ious for hypermetabolic malignancy. Pleura: Small to moderate-sized non-FDG avid left pleural ef fusion. There is a new hypermetabolic 1.1 x 0.6 cm pleural nodule in the posterior right mid hemithorax (maximum SUV 3.4, 3:169, 4:12 2), suspicious for hypermetabolic pleural metastasis. Mediastinum and Lymph nodes: New hypermetabolic lymphadenopa thy is seen at several sites, including the lower right paratracheal (ma ximum SUV 4.4), aortopulmonary window (maximum SUV 5.7) and left pulmo nary hilar region (maximum SUV 6.6). Chest wall: Unremarkable. ABDOMEN AND PELVIS: Physiologic FDG uptake seen in the and GI tracts. Liver: Multiple foci of abnormal FDG activity are seen throu ghout the liver, suspicious for hypermetabolic hepatic metastases. For example: - 1.3 cm focus of FDG activity in the lateral segment of the left hepatic lobe anteriorly (maximum SUV 5.8, 3:139, 4:169), - 2.4 cm focus of FDG activity in the central liver (maximum SUV 7.6, 3:137, 4:172), and - 1.0 cm focus of FDG activity in the peripheral right hepat ic lobe (maximum SUV 4.1, 3:129, 4:195). Biliary: No bile duct dilation. Spleen: No hypermetabolic splenic mass. No splenomegaly. Pancreas: No mass or duct dilation. Adrenals: No hypermetabolic mass. Kidneys: No stones, hydronephrosis, or hypermetabolic lesion s. GI tract: No dilation or wall thickening. Lymph nodes: No hypermetabolic abdominal or pelvic lymphaden opathy. Mesentery/Peritoneum: No ascites or mass. Vasculature: Vascular patency cannot be assessed due to lack of IV contrast. BONES AND EXTREMITIES: There is new mottled FDG activity associated with much of th e visualized skeleton, including both proximal humeri, multiple levels of the cervical, thoracic and lumbar spine, both scapula, sternum, multiple ribs, throughout the bony pelvis, and both femora. These fin dings are suspicious for extensive hypermetabolic osseous metastases. ====== IMPRESSION: 1. NECK: New hypermetabolic left supraclavicular adenopathy. Hypermetabolic left lower thyroid nodule, stable. 2. CHEST: Interval development of centrally obstructing hype rmetabolic pulmonary mass in the left upper lobe. New hypermetabolic me diastinal and left pulmonary hilar lymphadenopathy. Mildly FDG avid ri ght upper lobe pulmonary nodule, stable. 3. ABDOMEN/PELVIS: Hypermetabolic hepatic metastases. No hyp ermetabolic mass, adenopathy, or fluid collection. 4. EXTREMITIES/SKELETON: Findings 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 System: SCOOBY Transcribe Date/Time: Nov 03 2019 10:22A Dictated by : REMI GRAYSON MD This examination was interpreted and the report reviewed and electronically signed by: REMI GRAYSON MD on Nov 03 2019 10:52AM EST [id number] medical edwin on MEDICAL EDWIN HNO ID: [id number] [place] 11-03-19 [facility] Author: Bryant Lock ([id number]) Service: Anesthesiology Author Type: Anesthesiologist Type: Chg in Clinical Condition Filed: 11/03/2019 2:06 AM Note Text: MEDICAL EMERGENCY TEAM AMET CODE STATUS: Code Status: Not on file BACKGROUND 79 y/o M w/ hx of COPD, Lung Cancer, AFib, DM2, SCC, Thyroid cancer admitted for SOB now having rapid heart rate. REASON FOR CALL Cardiac: Heart rate <40 or >140 with new symptoms Any Heart Rate >150 ASSESSMENT Patient was sitting in chair upon arrival. Primary team was at bedside. EKG showed AFib w/ RVR. Primary team decided for 5mg IV Meto prolol with some improvement of HR from 150s to 120s. An additional 5mg IV was given getting HR to 80-90s. Primary team to follow and increase PO dose of Metoprolol. Patient otherwise hemodynamically stable. INTERVENTIONS Monitoring Telemetry Monitoring IV Metoprolol DISPOSITIONS Improved Primary Team Notified: Yes PAST MEDICAL / SURGICAL HISTORY PAST MEDICAL HISTORY Diagnosis Date - Atrial fibrillation (HCC) - Basal 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 [id number] - COPD (chronic obstructive pulmonary disease) (HCC) - CVA (cerebral vascular accident) (HCC) 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 - Diverticulosis of colon (without mention of hemorrhage) - DM (diabetes mellitus) (HCC) - Hemorrhage of gastrointestinal tract, unspecified - Hypercholesteremia - Lung cancer (HCC) - Sebaceous cyst knee - Sebaceous cyst arm pit - Sebaceous cyst back PAST SURGICAL HISTORY Procedure Laterality Date - [facility] inpt AIRWAY HISTORY Not available Difficult Airway: Unknown PERTINENT PHYSICAL EXAM and INITIAL ASSESSMENT (For vital signs prior and during MET call, see nursing docu mentation) Pertinent Vital Signs at Time of MET Call: 11/02/19 2108 11/02/19 2247 11/02/19 2359 11/03/19 0048 BP: 153/66 152/73 139/79 Pulse: 77 74 79 Resp: 20 20 Temp: 37 ?C (98.6 ?F) 36.8 ?C (98.3 ?F) TempSrc: Oral Oral SpO2: 100% 98% 98% Appearance: Alert, No distress and Cooperative Airway Patent: Yes Breathing Evaluation: Normal Circulation Evaluation: Pulses Full, bounding and Irregualr Neurologic Evaluation: GCS Evaluation: 4. Spontaneous, 5: Or iented 6: Obeys Motor commands Is the Level of Consciousness at Baseline: Yes Peripheral 10/31/19 Admission to Hospital Short Right Antecu bital 20 Gauge (Active) Placement Date: 10/31/19 Line, Drain, Airway Present on: Adm ission to Hospital Type of Peripheral Line: Short Location: Right Inse rtion Site: Antecubital Size: 20 Gauge PERTINENT DIAGNOSTICS Diagnostic Tests Reviewed: Most recent EKG: Arrythmia- AFib w/ RVR Primary Team Aware/Notified: Yes Critical Care Time: I personally spent 30 minutes directly s upervising and providing non-critical care to the patient as noted above.. I have reviewed, approved and signed the paper MET note. Ple ase refer to this for complete orders and nursing/respiratory documentati on. SIGNATURE: Bryant Tan MD PATIENT NAME: Tiana Martínez DATE: November 03, 2019 TIME: 2:02 AM PAGER: [id number] magnesium on 2019-0 11-02 Magnesium [Mass/Vol] 2.5 1.7-2.3 mg/dL High 0 [facility] ([id number]) Comment: Performed By: #### PT, CBC, BMP, MG1, PHOS ####[facility] [place], [place] [phone] intermed rapid covid on 2019-11-03 COVID 19 Result Negative for Negative for Normal 11-03-19 20 [facility] PRECISION AGRONOMIST COVID19 (SARS COVID19 (SARS Cl maricel (50507) CoV2) by PCR. CoV2) by PCR. Comment: Result Comment: This test wa s developed and its performance characteristics determined by [facility] [place]. This test has been authorized by FDA under an Emergency Us e Authorization (EUA). This test has been validated in accordance with the FDA's Guidance Document Policy for Diagnostics Testing in Laboratories Certified to Perform High Complexity Testing under CLIA prior to Emergency use Authorization for Coronavir us Disease 2019 during the Public Health Emergency issued on July 12, 2019. Performed By: #### ITCOVD ## ##[facility] [address] [place], [place] [phone] COVID 19 Source PRECISION AGRONOMIST Nasopharyngeal Swab Normal 0 11-03-2019 [facility] ([id number]) Comment: Performed By: #### ITCOVD ## ##[facility] [place], [place] [phone] ecg complete on ECG COMPLETE NAME : TIANA MARTÍNEZ 11-03-19 [facility] PID : [id number] Bladimir evans ([id number]) : 1940 Gender : Male Race : ORD : [id number] Procedure Date : Nov 03 2019 00:39:07 Edit Date : Nov 04 2019 21:25:23 Diagnosis:ATRIAL FIBRILLATION WITH RAPID VENTRICULAR RESPONS E NONSPECIFIC T WAVE ABNORMALITY ABNORMAL ECG Confirmed by LEONA KIM M.D. ([id number]) on 11/04/2019 9:22:56 PM Ventricular Rate : 113 BPM QRS Duration : 94 ms Q-T Interval : 292 ms QTC Calculation(Bazett) : 400 ms R [place] : 47 degrees T [place] : 63 degrees Test Reason : AMET Location : 170 : [facility] Overread By : LEONA KIM M.D. Edited By : LEONA KIM M.D. Referred By : RADU JACK Acquired by : TARYN CORONADO consult on CONSULT HNO ID: [id number] Normal 11-03-2019 [facility] Author: Susan Sparrow [place] Service: Pulmonary Disease ([id number]) Author Type: Physician Type: Consults Filed: 11/03/2019 5:14 PM Note Text: PULMONARY MEDICINE CONSULT Patient Name: Tiana Martínez REASON FOR CONSULT: History of NSCLC, new enlarging left hil ar mass concern for recurrence and post obstructive pneumonia REQUESTING PHYSICIAN: Samir Ruff MD PRIMARY CARE PHYSICIAN: Kevon Harrell MD CHIEF COMPLAINT: Dyspnea HISTORY OF PRESENT ILLNESS: Tiana Martínez is a 79 year old male, with a history of NSCLC (diagnosed 2015) treated with RT, COPD (empysema), pAF (on AC with apix aban), T2DM, multiple surgeries for basal cell carcinoma nose, face and p osterior neck 2000 - 2014, and follicular thyroid cancer. Who presented to [facility] on 10/30 from an OSH due to dyspnea. Patient reports that several weeks ago [facility] department and what day was diagnosed with a new hilar left upper lobe mass that had rapidly grown since his last imaging in . He started experiencing shortness of breath and chest pain, sha rp, stabbing on the left side of his chest. He developed thicker white ph legm, difficult to expectorate, and was feeling short of breath. T he patient did not previously require oxygen at home. Chest x-ray showed diffusely opacified left lung suggestive of pneumonia and atelectasis, with possible postobstructive pneumonitis. A chest CTA showed no pulmonary embolism arterial dissection, but showed a spiculated nodule in the right upper lobe measuring approximately 1.5 c m, with a large loculated left hilar mass with atelectasis in the ling ivone and left upper lobe, and a perihilar mass encasing the left pulmonary artery, measuring 6.8 x 4.9 x 6.6 cm in size. Also noted was enlarge ment of mediastinal nodes, the largest measuring approximately 5.7 x 3.4 cm. Labs were notable for lactic acid initially at 4, and then down t rended to 2.7, platelets 51, WBC 10.6. He had no reported hypotension but r equired up to 2 L of oxygen. at the outside hospital he was started on Angelo ephin and Zithromax. At [facility] he was switched to zosyn 3.75 q6h, he was diuresed fo r ADHF, as he was unable to lie flat for MRI. An AMET was called for afib with RVR HR 156 overnight of 11/02 AMET called, given 5 mg IV metoprolol x2, Of note he has developed a new anemia and thrombocytopenia w ith concern for possible bone marrow infiltration. Past oncologic history: - Right upper lobe non-small cell lung cancer (stage Ia) (Pl eural-based irregularly margined nodule in the anterior right upper lobe measuring 1.4 x 0.7cm diagnosed 11/2015) s/p SBRT (50 Gy in 5 fx) completed 03/22/16 , seen by Dr. Bull in Thoracic Surgery, recommended less inva sive approach due to PFTs - CT guided FNA of the RUL nodule demonstrated adenocarcinom a on 02/01/16 - PET scan demonstrated thyroid nodule as well as mildly hyp ermetabolic RUL known lung CA, no evidence of other sites of disease 01/13 10/27. - EBUS guided mediastinal santiago sampling was negative for ev idence of metastatic disease 02/07/16, RT with Dr. Sanchez -The patient continued to be monitored by CT, and showed no evidence of disease but a visible CT density continued to increase sligh tly over the previous CTs, though negative on PET uptake, concerning for post SBRT change vs progression of PET negative neoplasm -Was last seen by Dr. Sanchez, eventually on 04/23/2019 whe n he recommended CT-guided biopsy of this possible mass. The biop sy from 05/20/2019 showed focally infarcted tissue without granulomas or malignant cells. PAST MEDICAL HISTORY Diagnosis Date - Atrial fibrillation (HCC) - Basal 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 7520-9436 - COPD (chronic obstructive pulmonary disease) (HCC) - CVA (cerebral vascular accident) (HCC) 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 - Diverticulosis of colon (without mention of hemorrhage) - DM (diabetes mellitus) (HCC) - Hemorrhage of gastrointestinal tract, unspecified - Hypercholesteremia - Lung cancer (HCC) - Sebaceous cyst knee - Sebaceous cyst arm pit - Sebaceous cyst back PAST SURGICAL HISTORY Procedure Laterality Date - COLONOSCOP W/ OR W/O [facility] SPEC 06/14/07 [facility] inpt FAMILY HISTORY Problem Relation Age of Onset - Emphysema Mother - Heart disease Mother - Hypertension Mother - Stroke Mother - Heart Father - Alcohol/Drug Father - Hypertension Father - Stroke Father - Breast Cancer Sister - None Sister Social History Tobacco Use - Smoking status: Current Every Day Smoker Packs/day: 0.50 Years: 50.00 Pack years: 25.00 Types: Cigarettes - Smokeless tobacco: Never Used Substance Use Topics - Alcohol use: No - Drug use: No ALLERGIES: ALLERGIES Allergen Reactions - Bees CURRENT MEDICATIONS: atorvastatin (LIPITOR) 40 mg tablet, Take 40 mg by mouth onc e daily., Disp: , Rfl: , 10/30/2019 at 0600 furosemide (LASIX) 40 mg tablet, Take 40 mg by mouth every 4 8 hours., Disp: , Rfl: , 10/30/2019 at 1300 ELIQUIS 5 mg tab(s), Take 5 mg by mouth twice daily., Disp: , Rfl: , 10/30/2019 at 0600 TOPROL XL 50 mg 24 hr tablet, Take 50 mg by mouth once daily ., Disp: , Rfl: , 10/30/2019 at 0600 olmesartan (BENICAR) 5 mg tablet, Take 5 mg by mouth once da maicol., Disp: , Rfl: , 10/30/2019 at 0600 rOPINIRole Hydrochloride 3 mg tablet, Take 3 mg by mouth seth ly at bedtime., Disp: , Rfl: , 10/30/2019 at 2000 fluticasone/umeclidin/vilanter (TRELEGY ELLIPTA INHALATION), Inhale as instructed once daily., Disp: , Rfl: , Past Week at Unknown time Multivitamin capsule, Take 1 capsule by mouth once daily., D isp: , Rfl: , 10/30/2019 at 0600 albuterol HFA (PROAIR HFA) 90 mcg/actuation inhaler, Inhale 2 Puffs as instructed as needed., Disp: , Rfl: , 10/30/2019 at Unknown t roni aspirin(ADULT ASPIRIN EC LOW STRENGTH 81 MG TAB, DELAYED REL EASE), Take one(1) tablet daily., Disp: , Rfl: 0, 10/31/2019 at 0600 melatonin 3 mg tablet, Take 3 mg by mouth daily at bedtime., Disp: , Rfl: , 10/30/2019 at 2000 latanoprost (XALATAN) 0.005 % ophthalmic solution, 1 Drop da maicol at bedtime., Disp: , Rfl: , 10/30/2019 at 2100 EPINEPHrine (EPIPEN 2-ANUEL) 0.3 mg/0.3 mL auto-injector, Inje ct 0.3 mg intramuscularly as needed., Disp: , Rfl: , Unknown at Unknow n time Current Facility-Administered Medications Medication Dose Route Frequency - NaCl 0.9% 3-5 mL 3-5 mL INTRAVENOUS q 12 H - ondansetron (PF) 4 mg injection (ZOFRAN) 4 mg INTRAVENOUS q 6 H PRN - metoclopramide HCl 10 mg tab(s) (REGLAN) 10 mg ORAL q 6 H PRN - polyethylene glycol 3350 17 g packet (MIRALAX, GLYCOLAX) 1 7 g ORAL DAILY PRN - piperacillin-tazobactam iv piggyback 3.375 g in dextrose ( iso-osmotic) 50 mL (ZOSYN) 3.375 g INTRAVENOUS q 8 H - melatonin 3 mg tab(s) 3 mg ORAL AT BEDTIME - perflutren lipid microspheres 1.1 mg/mL 1.3 mL injection ( DEFINITY) 1.3 mL INTRAVENOUS DIRECTED PRN - atorvastatin 40 mg tab(s) (LIPITOR) 40 mg ORAL AT BEDTIME - therapeutic multivitamin 1 tablet tab(s) (THERA VITAMIN) 1 tablet ORAL/FEEDING TUBE DAILY - rOPINIRole 3 mg tab(s) (REQUIP) 3 mg ORAL TID - salt and soda 5-10 mL oral liquid 5-10 mL ORAL q 6 H - acetylcysteine 200 mg/mL (20 %) 200 mg (MUCOMYST) 200 mg I NHALATION q 8 H - guaiFENesin 600 mg ER tab(s) (MUCINEX) 600 mg ORAL q 12 H - latanoprost 0.005 % 1 Drop (XALATAN) 1 Drop BOTH EYES AT B EDTIME - metoprolol tartrate (short acting) 25 mg tab(s) (LOPRESSOR ) 25 mg ORAL q 12 H - magnesium oxide 800 mg tab(s) (MAG-OX) 800 mg ORAL DAILY - albuterol 2.5 mg /3 mL (0.083 %) 2.5 mg (PROVENTIL) 2.5 mg INHALATION q 4 H PRN - sodium chloride 7% solution 4 mL INHALATION ONLY 4 mL INHA LATION BID - clotrimazole 10 mg corinna (MYCELEX) 10 mg ORAL 5X/DAY REVIEW OF SYSTEMS GENERAL:No weight loss, malaise or fevers. HEENT:Negative for frequent or significant headaches, No joselyn nges in hearing or vision, no nose bleeds or other nasal problems NECK:Positive for goiter RESPIRATORY: Positive for dyspnea on exertion, productive co ugh (brown sputum), and shortness of breath CARDIOVASCULAR: Negative for chest pain GASTROINTESTINAL: Negative for abdominal discomfort, blood i n stools or black stools or change in bowel habits : No history of dysuria, frequency or incontinence MUSCULOSKELETAL: Negative for joint pain or swelling, back p ain or muscle pain SKIN: Negative for lesions, rash, and itching. PSYCH: Negative for sleep disturbance, mood disorder and rec ent psychosocial stressors. HEMATOLOGIC/LYMPHOLOGY:Negative for prolonged bleeding, brui sing easily or swollen nodes. ENDOCRINE: Negative for cold or heat intolerance, polyuria o r polydipsia. NEURO: No history of headaches, syncope, paralysis, seizures or tremors The remainder of the ROS was negative. PHYSICAL EXAMINATION: VITAL SIGNS: BP 137/79 Pulse 71 Temp (Src) 97.7 (Oral) Resp 16 SpO2 99% O2 Therapy: Nasal Cannula, Liters: 2.00 General appearance: well appearing, alert and in no acute di stress Skin: skin color, texture, turgor normal, no rashes or lesio ns HEENT: Normocephalic, moist mucous membranes and eyes anicte nathan Heme/Lymph: Supple, no petechiae Respiratory: Coarse breath sounds bilaterally Cardiovascular: RRR without murmur, gallop, or rubs Gastrointestinal: Normal abdominal exam, Abdomen soft, non-t evelyn. Bowel sounds normal. No masses, organomegaly Musculoskeletal: +2 pitting lower extremity edema, cheyenne valdez ges in place Neuro: Gait normal. Reflexes normal and symmetric. Sensation grossly intact. DATA: Diagnostic tests reviewed for today's visit, films/specimens were personally reviewed by me: Most recent labs and imaging results. LAST LAB RESULTS: Recent Labs 11/03/19 0115 11/02/19 2305 11/02/19 0544 11/01/19 0330 10/31/19 1357 WBC 10.08 10.56 9.84 < > 8.48 9.17 HB 7.8* 7.7* 7.8* < > 6.4* 7.2* HCT 26.6* 25.9* 26.0* < > 22.6* 25.4* PLT 33* 35* 36* < > 42* 41* INR 1.0 -- -- -- -- 1.0 APTT -- -- -- -- 26.2 -- NA 141 -- 143 -- 146* 146* K 3.0* -- 3.3* -- 3.4* 3.4* CHLOR 100 -- 103 -- 105 107* CO2 27 -- 24 -- 29 28 BUN 35* -- 38* -- 39* 41* CREAT 1.26* -- 1.18 -- 1.40* 1.18 GLUC 179* -- 144* -- 149* 145* CA 9.8 -- 9.5 -- 9.5 9.4 MG 2.5* -- -- -- -- -- P 3.6 -- -- -- -- -- < > = values in this interval not displayed. CHEST IMAGING: CT 12/24/2018 Spiculated right upper lobe subpleural nodule is mildly larg er and more consolidative in comparison to prior scans, and suspicious f or recurrence/growth. ?Notably, the nodule demonstrated residua l mild FDG avidity on a remote PET/CT from 01/15/2018 and previously se en groundglass components of the nodule are now replaced with s olid components. Interval resolution of diffuse centrilobular nodules and per ibronchial groundglass opacities compatible with resolved infection or aspiration. Stable 3 mm indeterminate left upper lobe nodule. ?New clust er of 2-4 mm centrilobular nodules in the RLL could be infectious/inflamm atory. ? Follow-up is suggested. ? CTA 10/31/2019 no pulmonary embolism arterial dissection. Spi culated nodule in the right upper lobe measuring approximately 1.5 cm, with a large loculated left hilar mass with atelectasis in the lingula an d left upper lobe, and a perihilar mass encasing the left pulmonary arter y, measuring 6.8 x 4.9 x 6.6 cm in size. Enlargement of mediastinal CXR 11/01 RESULT: Lines, tubes, and devices: ?None. Lungs and pleura: ?There is persistent left-sided volume los s including elevation of the left hemidiaphragm and leftward shift of th e heart and mediastinum. ?Ill-defined opacity overlying the left perihil ar region is consistent with left upper lobe collapse, likely due to a ob structing central neoplasm. ?A component of postobstructive pneumonia is not excluded. ?The small left pleural effusion seen on the recen t chest CT is not confidently visualized on this exam. ?A nodular density projecting over the right upper lobe appears stable. ?No pulmonary martín a. ?No substantial pneumothorax. Cardiomediastinal silhouette: ?Stable cardiomediastinal silh ouette. ? Leftward shift of the heart and mediastinum is unchanged. ?L eft hilar and mediastinal lymphadenopathy was better assessed on the recen t chest CT. Other: OTHER TESTING: PET NM 11/03/2019 IMPRESSION: 1. ?NECK: New hypermetabolic left supraclavicular adenopathy . ? Hypermetabolic left lower thyroid nodule, stable. 2. ?CHEST: Interval development of centrally obstructing hyp ermetabolic pulmonary mass in the left upper lobe. ?New hypermetabolic m ediastinal and left pulmonary hilar lymphadenopathy. ?Mildly FDG avid r ight upper lobe pulmonary nodule, stable. 3. ?ABDOMEN/PELVIS: Hypermetabolic hepatic metastases. ?No h ypermetabolic mass, adenopathy, or fluid collection. ?4. ?EXTREMITIES/SKELETON: ?Findings 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 ASSESSMENT AND PLAN: Mr. Martínez is an 79 year old gentleman with a medical histor y significant for right upper lobe non-small cell lung cancer (stage Ia) s /p SBRT (50 Gy in 5 fx) completed 03/29, who presented with SOB, found to h ave a large loculated left hilar mass with atelectasis in the lingula an d left upper lobe, encasing the left pulmonary artery, with possible post obstructive pneumonitis, and new anemia suggestive of bone marrow infilt ration. Collectively these findings are concerning for a new maligna ncy vs recurrence of previous malignancy. 1. Induced sputum send for gram stain and culture (ask RT fo r assistance) 2. Case discussed with bronchoscopy, bronchoscopy tomorrow ( 11/03), NPO at midnight 3. Platelet goal >50 for bronchoscopy, 2 units platelets ton ight, recheck CBC tomorrow morning, extra unit of platelets on standby per iprocedural 3. Continue zosyn 4. Continue BPH bid 5. Duoneb changed to albuterol nebulizer, avoid anticholiner gics as they will increase mucus production Written and verbal health teaching given to patient, patient verbalizes understanding and agrees with treatment plan. Electronically Signed: Alexandria Dubois MD Internal Medicine Resident PGY-1 November 03, 2019 9:20 AM Case discussed with fellow. Plan not finalized until signed by staff. TEACHING PHYSICIAN NOTE OF PERSONAL INVOLVEMENT IN CARE I have personally interviewed and examined Tiana Martínez. I have personally interviewed and examined the patient. I have personally verified elements of the exam listed above . I have personally reviewed the radiographic and diagnostic d quin, problem list and made changes as needed. IMPRESSION/PLAN 79 year old male, with a history of NSCLC adenocarcinoma RUL Stage 1a diagnosed 2016 treated with SBRT, COPD, paroxysmal AF (on ap ixaban), diabetes, basal cell carcinoma follicular thyroid cancer. RU L biopsied Apr 2019 due to concern of malignancy with biopsy consistent wit h infarcted tissues (no evidence of malignancy). The patient now present s with progressive dyspnea and sputum production and rapidly progre ssive picture of left hilar mass (6.8x4.9x6.6cm) with atelectasis of NORY a nd lingula encasing the pulmonary artery and also with thrombocytopenia (platelets=33K today). On exam, SaO2=99% on 2LO2NC and lung exam with reduced breat h sounds PET scan performed today consistent with uptake in the left supraclavicular node, NORY mass with conglomerate adenopathy and uptake in the liver. Left pleural effusion with less uptake. We reviewed plan with the patient and his son. Plan for bronchoscopy with EBUS tomorrow- keep NPO after mid night. Platelet transfusion--goal for >50K with platelets transfusi ng during procedure. Hold anticoagulation. Continue Albuterol nebulizer treatments q 4 hours and would add hypertonic saline nebulized treatments to assist with mucociliary clear ance. Susan Sparrow MD MS Pulmonary, Critical Care and Sleep Medicine cnpn on 2019-11-03 [facility]RAD[facility]) Normal 11-03-2019 [place] Kate TIANA MARTÍNEZ ([id number]) 1940 [facility] Date Time Provider Department ([id number]) 11/03/19 CARMELO ROSEN (RN) RADN During your visit today, we recorded the following informati on about you: Carmelo Rosen RN, RN 11/03/2019 10:40 AM Signed Returned call to Tiana Martínez, Mr. Martínez 's son. He wanted to inform us that he was on his way up to see is father and to keep us in the loop regarding the PET scan and the bronch. I informed him that we were aware and were watching for results. Tiana Capone asked multiple questions regar ding his father's lab work. I explained that it abnormal but he should address his questio ns to the physicians on G70 when they round. He states that he will di scuss with the admitting physician. There was some ques tion/concern about the need for a bone marrow bx. Again, asked him to address this with the team on G70. Tiana Capone asked to have a follow up with Dr. Sanchez. Explained that we would want to have more data (results of PET, bronch, pathology) prior to having a follow up call/appointment. He states an understanding. Allergies As of Date: 11/03/2019 Noted Allergy Reaction BEES 08/01/2007 Date Reviewed: 11/03/2019 Reviewed by: Katie JasmineRn) JUNIE Oconnell - Fully Assessed Reason for Visit: Director Institution - Other [6095] Cmt: Questions Prescriptions as of 11/03/2019 Sig: ATORVASTATIN 40 MG TABLET Take 40 mg by mouth once madyson* FUROSEMIDE 40 MG TABLET Take 40 mg by mouth every 48 * MELATONIN 3 MG TABLET Take 3 mg by mouth daily at b* ELIQUIS 5 MG TABLET Take 5 mg by mouth twice madyson* TOPROL XL 50 MG TABLET,EXTEND* Take 50 mg by mouth once madyson * OLMESARTAN 5 MG TABLET Take 5 mg by mouth once daily. ROPINIROLE 3 MG TABLET Take 3 mg by mouth daily at b* TRELEGY ELLIPTA INHALATION Inhale as instructed once seth* LATANOPROST 0.005 % EYE DROPS 1 Drop daily at bedtime. MULTIVITAMIN CAPSULE Take 1 capsule by mouth once * EPINEPHRINE 0.3 MG/0.3 ML INJ* Inject 0.3 mg intramuscularly * ALBUTEROL SULFATE HFA 90 MCG/* Inhale 2 Puffs as instructed * ADULT ASPIRIN EC LOW STRENGTH* Take one(1) tablet daily. Problem List As Of Date 11/03/2019 Noted Resolved DIVERTICULOSIS OF COLON W/O BLEED [K57.30] GASTROINTEST HEMORR NOS [K92.2] EXT HEMORRHOID W/O COMPL [K64.4] INT HEMORRHOID W/O COMPL [K64.8] ELEVATED PROSTATE SPECIFIC ANTIGEN [R97.20] 08/01/2007 BPH W/O URINARY OBS/LUTS [N40.0] 08/01/2007 Lung nodule [R91.1] 01/13/2016 Malignant neoplasm of upper lobe of right lung *05/21/2016 Emphysema of lung (HCC) [J43.9] 07/21/2016 Respiratory failure with hypoxia (HCC) [J96.91] 10/31/2019 Nicotine use disorder, F17.2 [F17.200] 11/01/2019 Encounter Status:Closed by CARMELO ROSEN on 11/03/19 cbc on 2019-11-03 Absolute nRBC 0.86 <0.01 k/uL High 11-03-2019 [facility] ([id number]) Comment: Performed By: #### CBC ####C [place] [phone] Erythrocyte distribution 29.3 11.5-15.0 % High 11-02 [facility] width (RBC) [Ratio] [place] ([id number]) Comment: Performed By: #### CBC ####C [address] [phone] Hematocrit (Bld) [Volume 25.8 39.0-51.0 % Low 11-02 [facility] fraction] ([id number]) Comment: Performed By: #### CBC ####C [address] [phone] Hemoglobin (Bld) 7.7 13.0-17.0 g/dL Low 11-03-2019 [facility] [Mass/Vol] [place] ([id number]) Comment: Performed By: #### CBC ####C [address] [phone] MCH (RBC) [Entitic mass] 24.1 26.0-34.0 pG Low 11-02 [facility] ([id number]) Comment: Performed By: #### CBC ####C [address] [phone] MCHC (RBC) [Mass/Vol] 29.8 30.5-36.0 g/dL Low 11-03-19 20 [facility] ([id number]) Comment: Performed By: #### CBC ####C [place] [phone] MCV (RBC) [Entitic vol] 80.6 80.0-100.0 fL Normal 11-02 [facility] (57671) Comment: Performed By: #### CBC ####C [address] [phone] Platelet mean <<DO NOT REPORT>> 9.0-12.7 Normal 11-03-19 20 [facility] volume (Bld) [place] ([id number]) [Entitic vol] Comment: Performed By: #### CBC ####C [address] [phone] Platelets (Bld) [#/Vol] 31 150-400 k/uL Low 2019 [facility] ([id number]) Comment: Result Comment: Result check ed and verified No clot detected. Performed By: #### CBC ####C [address] [phone] RBC (Bld) [#/Vol] 3.20 4.20-6.00 m/uL Low 11-03-2019 [facility] (28049) Comment: Performed By: #### CBC ####C [address] [phone] WBC (Bld) [#/Vol] 9.85 3.70-11.00 k/uL Normal 11-03-2019 [facility] (30165) Comment: Performed By: #### CBC ####C [address] [phone] Absolute nRBC 0.83 <0.01 k/uL High 11-03-2019 [facility] ([id number]) Comment: Performed By: #### PT, CBC, BMP, MG1, PHOS ####[address] [phone] Erythrocyte distribution 29.0 11.5-15.0 % High 11-02 [facility] width (RBC) [Ratio] [place] (03866) Comment: Performed By: #### PT, CBC, BMP, MG1, PHOS ####[place] [address] [place], [place] [phone] Hematocrit (Bld) [Volume 26.6 39.0-51.0 % Low 11-02 [facility] fraction] ([id number]) Comment: Performed By: #### PT, CBC, BMP, MG1, PHOS ####[place] [address] [place], [place] [phone] Hemoglobin (Bld) 7.8 13.0-17.0 g/dL Low 11-03-2019 [facility] [Mass/Vol] [place] (91560) Comment: Performed By: #### PT, CBC, BMP, MG1, PHOS ####[place] [address] [place] [phone] MCH (RBC) [Entitic mass] 23.7 26.0-34.0 pG Low 11-02 [facility] ([id number]) Comment: Performed By: #### PT, CBC, BMP, MG1, PHOS ####[place] [address] [place], [place] [phone] MCHC (RBC) [Mass/Vol] 29.3 30.5-36.0 g/dL Low 11-03-19 20 [facility] ([id number]) Comment: Performed By: #### PT, CBC, BMP, MG1, PHOS ####[place] [address] [place], [place] [phone] MCV (RBC) [Entitic vol] 80.9 80.0-100.0 fL Normal 11-02 [facility] (05337) Comment: Performed By: #### PT, CBC, BMP, MG1, PHOS ####[place] [address] [place], [place] [phone] Platelet mean <<DO NOT REPORT>> 9.0-12.7 Normal 11-03-19 20 [facility] volume (Bld) [place] ([id number]) [Entitic vol] Comment: Performed By: #### PT, CBC, BMP, MG1, PHOS ####[facility] [place], [place] [phone] Platelets (Bld) [#/Vol] 33 150-400 k/uL Low 2019 [facility] ([id number]) Comment: Result Comment: Result check ed and verified No clot detected. Performed By: #### PT, CBC, BMP, MG1, PHOS ####[facility] [place], [place] [phone] RBC (Bld) [#/Vol] 3.29 4.20-6.00 m/uL Low 11-03-2019 [facility] (68773) Comment: Performed By: #### PT, CBC, BMP, MG1, PHOS ####[facility] [place], [place] [phone] WBC (Bld) [#/Vol] 10.08 3.70-11.00 k/uL Normal 11-03-2019 [facility] ([id number]) Comment: Performed By: #### PT, CBC, BMP, MG1, PHOS ####[facility] [place], [place] [phone] Absolute nRBC 0.96 <0.01 k/uL High 11-03-2019 [facility] (30223) Comment: Performed By: #### CBC, RETI C ####[facility], [place] [phone] Comment Slight Normal 11-03-2019 [facility] (27422) Comment: Result Comment: Polychromasi a Few RBC Fragments Few Ovalocytes Performed By: #### CBC, RETI C ####[facility], [place] [phone] Erythrocyte distribution 28.9 11.5-15.0 % High 11-02 [facility] width (RBC) [Ratio] [place] (34702) Comment: Performed By: #### CBC, RETI C ####[place] [address], [place] [phone] Hematocrit (Bld) [Volume 25.9 39.0-51.0 % Low 11-02 [facility] fraction] (63053) Comment: Performed By: #### CBC, RETI C ####[address] [place], [place] [phone] Hemoglobin (Bld) 7.7 13.0-17.0 g/dL Low 11-03-2019 [facility] [Mass/Vol] [place] (45464) Comment: Performed By: #### CBC, RETI C ####[address] [place], [place] [phone] MCH (RBC) [Entitic mass] 24.1 26.0-34.0 pG Low 11-02 [facility] (14729) Comment: Performed By: #### CBC, RETI C ####[address] [place], [place] [phone] MCHC (RBC) [Mass/Vol] 29.7 30.5-36.0 g/dL Low 11-03-19 20 [facility] ([id number]) Comment: Performed By: #### CBC, RETI C ####[address] [place], [place] [phone]- [phone] MCV (RBC) [Entitic vol] 80.9 80.0-100.0 fL Normal 11-02 [facility] ([id number]) Comment: Performed By: #### CBC, RETI C ####[address] [place], [place] [phone] Platelet mean <<DO NOT REPORT>> 9.0-12.7 Normal 11-03-19 20 [facility] volume (Bld) [place] (36484) [Entitic vol] Comment: Performed By: #### CBC, RETI C ####[place] [address] [place], [place] [phone] Platelets (Bld) [#/Vol] 35 150-400 k/uL Low 2019 [facility] ([id number]) Comment: Result Comment: Result check ed and verified No clot detected. Performed By: #### CBC, RETI C ####[address] [place], [place] [phone] RBC (Bld) [#/Vol] 3.20 4.20-6.00 m/uL Low 11-03-2019 [facility] (45311) Comment: Performed By: #### CBC, RETI C ####[place] [address], [place] [phone] Review Done Normal 11-03-2019 [facility] ([id number]) Comment: Performed By: #### CBC, RETI C ####[address] [phone] WBC (Bld) [#/Vol] 10.56 3.70-11.00 k/uL Normal 11-03-2019 [facility] (53614) Comment: Performed By: #### CBC, RETI C ####[address] [phone] case mgt init asses on 2019-11-03 CASE MGT INIT HNO ID: [id number] Normal 020 [facility] Author: Saud (Rn) Carlos Bourne RN [place] ([id number]) Service: Care Management Author Type: Registered Nurse Type: Care Mgt Initial Assessment Filed: 11/03/2019 2:50 PM Note Text: CARE MANAGEMENT: ASSESSMENT AND DISCHARGE PLAN SERVICE DATE: November 03, 2019 SERVICE TIME: 2:45 PM PRIMARY CARE PHYSICIAN: Kevon Harrell MD ADMISSION STATUS: Inpatient Needs Prior to Discharge: Ready for Discharge MEDICAL: MEDICARE A AND B Patient/Rpg Developer Stated Goals: To have reduction in sy mptoms;To improve my functional status Health Insurance: Medicare Health Issues Impacting Discharge Plan: None Last Discharge Date: 05/20/19 Is this Within the Past 30 days? Last discharge within 30 days: Yes Is this a planned readmission?: No Unplanned Reason: Recurring symptoms of underlying disease Followed Up with Appointment Prior to Admission: Appointment completed Advance Directive: Current Advance Directive: Health Care Power of Turbine Inspector In Chart: No Advisor Advocate Angel Co Founder Attempted to Assist with AD Completion: Yes Action: Other: See Comment(Son states he is POA for both a lt care and finances) Health LiteracyHow often do you need to have someone help yo u when you read instructions, pamphlets, or other written material from your doctor or pharmacy? : 2 - Rarely How confident are you filling out medical forms by yourself? : 2 - Quite a bit Baseline Mental Status Prior to this Illness what was the patient's Baseline Mental Status?: Alert AND Oriented Prior to this illness, has anyone described the patient havi ng any of the following behaviors?: Not Applicable Functional Status: Independent Does Patient Currently Receive Any Community Services or [facility] Care?: None Equipment Prior to Admission: None SOCIAL: Living Arrangements: Home Lives With: Alone Financial Resources: RetiredPrimary Contact: Extended Emerge ncy Contact Information Primary Emergency Contact: Tanya CaponeTiana Mobile Relation: Son Supportive Patient Contact:: Yes Contact Resources: Family Family Name/Phone: Tiana BlockRho-[phone] (M) Social Needs Food insecurity Worry: Not on file Inability: Not on file Resources Needed: No Social Needs Financial resource strain: Not on file Social Needs Transportation needs Medical: Not on file Non-medical: Not on file Caregiver AssessmentCaregiver is ready, willing and able to meet the patient's needs as recommended by the inter-professional tea m:: Yes Does the patient have an acute stroke diagnosis, or has the patient had a stroke during this admission?: No Patient's transition needs and plan for meeting these needs: To Be Determined Patient's perception of need for this admission: SOB, cough Medication Adherance I am convinced of the importance of my prescription medicati on: 0 - Agree Completely I worry that my prescription medication will do more harm th an good to me : 0 - Disagree Mostly I feel financially burdened by my tba-rk-tiaigf expenses for my prescription medication:: 0 - Disagree Mostly Risk Score: 0 Patient is categorized as: Low risk < 2 Are you interested in bedside delivery of your medications? Yes Is Patient Psychosocially Complex?: No ASSESSMENT AND PLAN: Medical Needs: Medical Needs: Cancer - active treatment/follow up Psychosocial Needs: Psychosocial Needs: None FREEDOM OF CHOICE EXPLAINED: POTENTIAL TRANSITION PLANS To Be Determined CM talked with patient's son and POA (not on file) Tiana medina at [phone] (M) to introduce myself and to explain my role as a Advisor Advocate Angel Co Founder. Patient had been independent with no home care serv ices or DME. He was driving his car two weeks ago. He lives alone. He was not using home oxygen, in the hospital he is requiring 2-3 liters. Son states he has been in touch with [facility] last week. It is pamella se to his fathers home. CM will follow for dispo plan. SIGNATURE: Saud Pop RN PATIENT NAME: Tiana Martínez DATE: November 03, 2019 TIME: 2:45 PM PAGER/CONTACT #: [phone] basic metabolic panl on 2019-11-03 Anion gap [Moles/Vol] 15 9-18 mmol/L Normal 11-03-19 20 [facility] ([id number]) Comment: Performed By: #### BMP ####C [facility] [address] [place], [place] [phone] Calcium [Mass/Vol] 9.7 8.5-10.2 mg/dL Normal 11-03-2019 [facility] ([id number]) Comment: Performed By: #### BMP ####C [facility] [address] [place], [place] [phone] Chloride [Moles/Vol] 102 97-105 mmol/L Normal 0 [facility] (15188) Comment: Performed By: #### BMP ####C [facility] [address] [place], [place] [phone] CO2 [Moles/Vol] 29 22-30 mmol/L Normal 11-03-2019 [facility] (07840) Comment: Performed By: #### BMP ####C [facility] [place], [place] [phone] Creatinine [Mass/Vol] 1.17 0.73-1.22 mg/dL Normal 11-03-19 20 [facility] (49358) Comment: Performed By: #### BMP ####C [facility] [place], [place] [phone] eGFR- Amer. >60 Normal 11-03-2019 [facility] (69679) Comment: Performed By: #### BMP ####C [address] [phone] GFR/1.73 sq M predicted among 60 . Normal 11-03-2019 [facility] non-blacks MDRD (S/P/Bld) [Vol (71619) rate/Area] Comment: Result Comment: eGFR (Estima alejandrina GFR) Units of measure: mL/min/1.73 meters squared eGFR is derived from the ree xpressed MDRD Study equation using the following parameters: serum creatinine, age, gender and race. The creatinine assay has been calibrated to be traceable to IDMS. An eGFR <60 mL/min/1.73m2 fo r >3 months is consistent with chronic kidney disease. Refer to KDOQI guidelines for clinical interpretation. In patients with unstable re nal function, e.g. those with acute kidney injury, the eGFR may not accurately reflect actual GFR. Performed By: #### BMP ####C [facility] [place], [place] [phone] Glucose [Mass/Vol] 142 74-99 mg/dL High 11-03-2019 [facility] (58128) Comment: Result Comment: The [place] [employer] (ADA) provides guidance for cutoff values for fasting glucose and random glucose. The ADA defines fasting as no caloric intake for at least 8 hours. Fas ting plasma glucose results between 100 to 125 mg/dL indicate increased risk for diabetes (prediabetes). Fasting plasma glucose resul ts greater than or equal to 126 mg/dL meet the criteria for diagnosis of diabetes. In the absence of unequivocal hyperglycemia, results should be confirmed by repeat testing. In a patient with classic s ymptoms of hyperglycemia or hyperglycemic crisis, random plasma glucose results greater than or equal to 200 mg/dL meet the criteria for diagnosis of diabetes. Reference: Standards of [facility] Care in Diabetes 2016, [place] [employer]. Diabetes Care. 2016.39(Suppl 1). Performed By: #### BMP ####C [place] [phone] Potassium [Moles/Vol] 3.2 3.7-5.1 mmol/L Low 11-03-19 [facility] (22693) Comment: Performed By: #### BMP ####C [place] [phone] Sodium [Moles/Vol] 146 136-144 mmol/L High 11-03-2019 [facility] (84610) Comment: Performed By: #### BMP ####C [place] [phone] Urea nitrogen [Mass/Vol] 34 9-24 mg/dL High 11-02 [facility] (66681) Comment: Performed By: #### BMP ####C [place] [phone] Anion gap [Moles/Vol] 14 9-18 mmol/L Normal 11-03-19 [facility] (80873) Comment: Performed By: #### PT, CBC, BMP, MG1, PHOS ####[address] [place], [place] [phone] Calcium [Mass/Vol] 9.8 8.5-10.2 mg/dL Normal 11-03-2019 [facility] (16223) Comment: Performed By: #### PT, CBC, BMP, MG1, PHOS ####[place] [address] [place], [place] [phone] Chloride [Moles/Vol] 100 97-105 mmol/L Normal 0 [facility] (24390) Comment: Performed By: #### PT, CBC, BMP, MG1, PHOS ####[facility] [address] [place], [place] [phone] CO2 [Moles/Vol] 27 22-30 mmol/L Normal 11-03-2019 [facility] (55764) Comment: Performed By: #### PT, CBC, BMP, MG1, PHOS ####[facility] [address] [place], [place] [phone] Creatinine [Mass/Vol] 1.26 0.73-1.22 mg/dL High 11-03-19 20 [facility] (49974) Comment: Performed By: #### PT, CBC, BMP, MG1, PHOS ####[facility] [address] [place], [place] [phone] eGFR- Amer. >60 Normal 11-03-2019 [facility] (80959) Comment: Performed By: #### PT, CBC, BMP, MG1, PHOS ####[facility] [address] [place], [place] [phone] GFR/1.73 sq M predicted among 55 . Normal 11-03-2019 [facility] non-blacks MDRD (S/P/Bld) [Vol (72243) rate/Area] Comment: Result Comment: eGFR (Estima alejandrina GFR) Units of measure: mL/min/1.73 meters squared eGFR is derived from the ree xpressed MDRD Study equation using the following parameters: serum creatinine, age, gender and race. The creatinine assay has been calibrated to be traceable to IDIPPLEX. An eGFR <60 mL/min/1.73m2 fo r >3 months is consistent with chronic kidney disease. Refer to KDOQI guidelines for clinical interpretation. In patients with unstable re nal function, e.g. those with acute kidney injury, the eGFR may not accurately reflect actual GFR. Performed By: #### PT, CBC, BMP, MG1, PHOS ####[facility] [address] [place], [place] [phone] Glucose [Mass/Vol] 179 74-99 mg/dL High 11-03-2019 [facility] (84743) Comment: Result Comment: The [place] Diabetes [employer] (ADA) provides guidance for cutoff values for fasting glucose and random glucose. The ADA defines fasting as no caloric intake for at least 8 hours. Fas ting plasma glucose results between 100 to 125 mg/dL indicate increased risk for diabetes (prediabetes). Fasting plasma glucose resul ts greater than or equal to 126 mg/dL meet the criteria for diagnosis of diabetes. In the absence of unequivocal hyperglycemia, results should be confirmed by repeat testing. In a patient with classic s ymptoms of hyperglycemia or hyperglycemic crisis, random plasma glucose results greater than or equal to 200 mg/dL meet the criteria for diagnosis of diabetes. Reference: Standards of [facility] Care in Diabetes 2016, [place] [employer]. Diabetes Care. 2016.39(Suppl 1). Performed By: #### PT, CBC, BMP, MG1, PHOS ####[facility] [place], [place] [phone] Potassium [Moles/Vol] 3.0 3.7-5.1 mmol/L Low 11-03-19 [facility] ([id number]) Comment: Performed By: #### PT, CBC, BMP, MG1, PHOS ####[facility] [address] [place], [place] [phone] Sodium [Moles/Vol] 141 136-144 mmol/L Normal 11-03-2019 [facility] ([id number]) Comment: Performed By: #### PT, CBC, BMP, MG1, PHOS ####[facility] [address] [place], [place] [phone] Urea nitrogen [Mass/Vol] 35 9-24 mg/dL High 11-02 [facility] ([id number]) Comment: Performed By: #### PT, CBC, BMP, MG1, PHOS ####[facility] [address] [place], [place] [phone] xr chest 1v frontal port on 2019-11-02 XR CHEST 1V * * *Final Report* * * Normal 11-01 [facility] FRONTAL PORT DATE OF EXAM: Nov 02 2019 11:41AM [place] ([id number]) YENY [id number] - XR CHEST 1V FRONTAL PORT / PROCEDURE REASON: Shortness of breath * * * * Physician Interpretation * * * * EXAMINATION: CHEST RADIOGRAPH (PORTABLE SINGLE VIEW AP) Exam Date/Time: 11/02/2019 11:41 AM Clinical History: Shortness of breath MQ: [id number] Comparison: Chest radiograph and chest CT exams dated 2019 RESULT: Lines, tubes, and devices: None. Lungs and pleura: There is persistent left-sided volume loss including elevation of the left hemidiaphragm and leftward shift of th e heart and mediastinum. Ill-defined opacity overlying the left perihila r region is consistent with left upper lobe collapse, likely due to a ob structing central neoplasm. A component of postobstructive pneumonia i s not excluded. The small left pleural effusion seen on the recent chest CT is not confidently visualized on this exam. A nodular density p rojecting over the right upper lobe appears stable. No pulmonary edema . No substantial pneumothorax. Cardiomediastinal silhouette: Stable cardiomediastinal silho uette. Leftward shift of the heart and mediastinum is unchanged. Le ft hilar and mediastinal lymphadenopathy was better assessed on the recen t chest CT. Other: . IMPRESSION: See result. 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: PSCB Transcribe Date/Time: Nov 02 2019 1:01P Dictated by : KATIE LUNA MD This examination was interpreted and the report reviewed and electronically signed by: KATIE LUNA MD on Nov 02 2019 1:05PM EST [id number] type and screen on 2019-11-02 ABO/RH(D) O POSITIVE Normal 11-02-2019 [facility] ([id number]) Comment: Performed By: #### TSCR #### [facility] [address] [place], [place] [phone] progress on 2019-10 PROGRESS HNO ID: [id number] Normal 11-02-2019 [facility] Author: Shaheen Rosenberg [place] ([id number]) Service: Oncology Author Type: Physician Type: Progress Notes Filed: 11/02/2019 5:40 PM Note Text: Solid Tumor Oncology 1 Progress Note Progress Note PATIENT NAME: Tiana Martínez PRIMARY SERVICE: STO1 ADMISSION DAY 10/31/2019 HOSPITAL DAY: 2 CODE STATUS: Full Plan for Today (11/02/2019) - diuresis w/ 40 mg IV given worsening SOB - monitor weights, I/O - heart healthy diet - monitor h/h BID - scheduled duonebs - f/u bronchoscopy tomorrow Interval Events - NAEO, VSS, afebrile - Hgb responded appropriately to 1 unit pRBC, Hemoglobin (g/dL) Date Value 11/02/2019 7.8 (L) 11/01/2019 7.3 (L) 11/01/2019 6.4 (L) - platelets continue to downtrend Platelet Count (k/uL) Date Value 11/02/2019 36 (L) 11/01/2019 42 (L) 11/01/2019 42 (L) 10/31/2019 41 (L) 05/15/2019 249 01/13/2016 252 - was unable to lay flat for his MRI due to worsening SOB - 24 hour Vitals: Vital Signs (last filed) Range in last 24h Temp: 36.6 ?C (97.9 ?F) (11/02/19915) Temp Min: 36.5 ?C (9 7.7 ?F) Max: 36.8 ?C (98.2 ?F) Pulse: 70 (11/02/19915) Pulse Min: 70 Max: 102 BP: 144/72 (11/02/19915) BP Min: 137/76 Max: 156/83 Resp: 16 (11/02/19915) Resp Min: 16 Max: 20 SpO2: 100 % (11/02/19915) SpO2 Min: 98 % Max: 100 % O2 Therapy: Nasal Cannula (11/02/19915) Liters: 3.00 (11/02/19915) Physical Exam BP 144/72 Pulse 70 Temp 36.6 ?C (97.9 ?F) (Oral) Resp 16 SpO2 100% General appearance: in NAD, speaking in full coherent senten dhiraj, nondiaphoretic, cooperative with appropriate affect HEENT: anicteric sclera, EOMI, MMM. Non-cyanotic lips. Tongu e and posterior oropharynx normal. Teeth normal. Respiratory: Diminished breath sounds in NORY, LIL, LLL, Diff use expiratory wheezes. Diaphragmatic excursion and chest wall symmetry myriam ear equal and normal. No accessory muscle use. On 2L O2. Cardiovascular: RRR without gallop, or rubs or murmur. Non-d isplaced PMI. No parasternal heave. No carotid, abdominal aortic, femoral bruits noted. Normal pedal pulses bilaterally. 2+ peripheral edema noted i n the upper or lower extremities. Normal temperature of all 4 extremitie s. Abdomen/GI: Abdomen soft, non-tender, non-distended. No mass es or organomegaly noted. No hepatojugular reflux, no ascites Extremities: No clubbing or cyanosis of fingers. No cracking , pitting or petechiae on fingers. Capillary refill <2 sec bilaterally. Musculoskeletal: Spine shows no kyphosis or scoliosis. Muscl es show no clear abnormality. Skin:No petechiae, ecchymoses, rash noted. No jaundice, no p almar erythema, no spider angiomas. Neurologic: AOx3, able to vocalize, moves all extremities,?n o asterixis Psychiatric: no abnormalities with mood with congruent affec t Fluid Balance Intake/Output Summary (Last 24 hours) at 11/02/2019 1104 Last data filed at 11/02/2019 1046 Gross per 24 hour Intake 690 ml Output 950 ml Net -260 ml Last Admit Weight change: Historical weights (outpatient/ED visits) Last 8 Encounter Wt Readings: Date: Wt: 06/11/2019 90.7 kg (200 lb) 04/24/2019 88.5 kg (195 lb) 12/31/2018 83.2 kg (183 lb 8 oz) 05/02/2018 83.5 kg (184 lb) 12/21/2017 85.3 kg (188 lb) 12/21/2017 85.3 kg (188 lb) 12/01/2016 86.6 kg (191 lb) 11/20/2016 87.1 kg (192 lb) Intake/Output 10/31/19 0700 - 06/20/20 0659 11/01/19 0700 - 11/02/19 0659 11/02/19 0700 - 11/03/19 0659 Intake (ml) 50 850 240 Output (ml) 952 550 400 Net (ml) -902 300 -160 Labs CBC: Recent Labs 11/02/19 0544 11/01/19 2142 11/01/19 0330 10/31/19 1357 WBC 9.84 9.13 8.48 9.17 HB 7.8* 7.3* 6.4* 7.2* HCT 26.0* 24.4* 22.6* 25.4* PLT 36* 42* 42* 41* MCV 80.0 81.1 81.6 80.9 RDWCV 28.9* 29.2* 29.2* 29.2* NEUTP -- -- 70.0 73.0 ABSNEUT -- -- 5.94 6.69 LYMPHP -- -- 22.0 19.0 MONOP -- -- 5.0 4.0 EODINP -- -- 0.0 1.0 COAG: Recent Labs 11/01/19 0330 10/31/19 1357 APTT 26.2 -- INR -- 1.0 BMP: Recent Labs 11/02/19 0544 11/01/19 0330 10/31/19 1357 10/31/19 1343 GLUC 144* 149* 145* -- NA 143 146* 146* -- K 3.3* 3.4* 3.4* -- CHLOR 103 105 107* -- CO2 24 29 28 31* ANION 16 12 11 -- BUN 38* 39* 41* -- CREAT 1.18 1.40* 1.18 -- CHEM: Recent Labs 11/02/19 0544 11/01/19 0330 10/31/19 1357 ALB -- -- 3.0* TPROT -- -- 5.5* CA 9.5 9.5 9.4 HEPATIC: Recent Labs 10/31/19 1357 ALKPHOS 108 ALT 56* AST 141* TBILI 0.4 Medications Scheduled salt and soda, 5-10 mL, q 6 H atorvastatin, 40 mg, AT BEDTIME therapeutic multivitamin, 1 tablet, DAILY rOPINIRole, 3 mg, TID NaCl 0.9%, 3-5 mL, q 12 H piperacillin-tazobactam, 3.375 g, q 8 H melatonin, 3 mg, AT BEDTIME metoprolol tartrate (short acting), 12.5 mg, q 12 H PRN ipratropium-albuterol, 3 mL, q 4 H PRN ondansetron (PF), 4 mg, q 6 H PRN metoclopramide HCl, 10 mg, q 6 H PRN polyethylene glycol 3350, 17 g, DAILY PRN perflutren lipid microspheres, 1.3 mL, DIRECTED PRN Infusion Medications: Micro BCx 10/[address] 12/24/2018 Spiculated right upper lobe subpleural nodule is mildly larg er and more consolidative in comparison to prior scans, and suspicious f or recurrence/growth. ?Notably, the nodule demonstrated residua l mild FDG avidity on a remote PET/CT from 01/15/2018 and previously se en groundglass components of the nodule are now replaced with s olid components. Interval resolution of diffuse centrilobular nodules and per ibronchial groundglass opacities compatible with resolved infection or aspiration. Stable 3 mm indeterminate left upper lobe nodule. ?New clust er of 2-4 mm centrilobular nodules in the RLL could be infectious/inflamm atory. ? Follow-up is suggested. ? CTA 10/31/2019 no pulmonary embolism arterial dissection. Spi culated nodule in the right upper lobe measuring approximately 1.5 cm, with a large loculated left hilar mass with atelectasis in the lingula an d left upper lobe, and a perihilar mass encasing the left pulmonary arter y, measuring 6.8 x 4.9 x 6.6 cm in size. Enlargement of mediastinal nodes , the largest measuring approximately 5.7 x 3.4 cm. Oncologic History - Right upper lobe non-small cell lung cancer (stage Ia) s/p SBRT (50 Gy in 5 fx) completed 03/22/16 -The patient continued to be monitored by CT, and showed no evidence of disease but a visible CT density continued to increase sligh tly over the previous CTs, though negative on PET uptake, concerning for post SBRT change vs progression of PET negative neoplasm -Was last seen by Dr. Stephans, eventually on 04/23/2019 whe n he recommended CT-guided biopsy of this possible mass. The biop sy from 05/20/2019 showed focally infarcted tissue without granulomas or malignant cells. Chest CTA 10/30 showed new large loculated left hilar mass wi th atelectasis in the lingula and left upper lobe, and a perihilar mass enc asing the left pulmonary artery, measuring 6.8 x 4.9 x 6.6 cm in size. Also noted was enlargement of mediastinal nodes, the largest measuring appr oximately 5.7 x 3.4 cm. Assessment and Plan ? 79 year old male PMH of Right upper lobe non-small cell lung cancer (stage Ia) s/p SBRT (50 Gy in 5 fx) completed 03/29, who presented with SOB, found to have a large loculated left hilar mass with atelect asis in the lingula and left upper lobe, and encasing the left pulmonary artery, with possible postobstructive pneumonitis. ? # NSCLC # large lung mass Plan: MRI brain wo/w IV contrast NM pet whole body F/u pulm recs re EBUS ? # postobstructive pneumonia/pneumonitis # hypoxia CTA 10/30 w/ new large loculated left hilar mass with atelect asis in the lingula and left upper lobe, and a perihilar mass encasing t he left pulmonary artery, measuring 6.8 x 4.9 x 6.6 cm in size. Enla rgement of mediastinal nodes, the largest measuring approximately 5.7 x 3.4 cm. Strep pneumo urine AG neg Covid-19 neg Plan: Continuous pulse oxymetry F/u RSV panel, Legionella Ag urine Continue Zosyn 3.75 q6h ? # COPD - duoneb PRN and scheduled q4h ? # ADHF Weight gain 2+ pedal edema NT pro BNP Plan: - TTE - Tele - Fluid restriction (<1.5 L), salt restriction (<2g) - Daily wgts - Strict I/Os - Suppl O2 to titrate O2>92%, CPAP/BiPAP if needed - Lasix 40 mg IV / gtt, monitor Cr, lytes - continue home ARB - reduce BB ? # thrombocytopenia Platelet Count (k/uL) Date Value 11/02/2019 36 (L) 11/01/2019 42 (L) 11/01/2019 42 (L) 10/31/2019 41 (L) 05/15/2019 249 01/13/2016 252 unclear precipitating factor Pathologist review: Normocytic Anemia With Moderate Polychro masia Thrombocytopenia Plan: CTM Consider heme consult hold AC ? # anemia Hemoglobin (g/dL) Date Value 11/02/2019 7.8 (L) 11/01/2019 7.3 (L) 11/01/2019 6.4 (L) s/p 1 unit pRBC transfusion 10/31, no overt sign of bleeding DIC labs unrevealing (elevated fibrinogen, d dimer but CT PE was negative) Iron studies unrevealing : Iron, TIBC WNL Plan: CTM Daily CBC Consider heme consult, bone marrow biopsy? ? ? Rounding Checklist: Diet/Nutrition: heart healthy Mobility status: mobile VTE Prophylaxis: deferred due to thrombocytopenia Pain management: tylenol Glycemic control: SSI Code Status: full Dispo Planning: pending 10/31/19 1215 vte pharmacologic prophylaxis contraindicated (ky,wi) 10/31/19 1215 pneumatic compression stockings (ky,wi) 10/31/19 1215 activity - mobilize patient ([place], [place]) SIGNATURE: Skylar Seay MD PHD PGY-1 PATIENT NAME: Tiana medina DATE: 11/02/2019 TIME: 10:58 AM PAGER: [phone] Note: These recommendations are not final until staffed by max harris See my note from earlier today. Shaheen Rosenberg MD PROGRESS HNO ID: [id number] Normal 11-02-2019 [facility] Author: Shaheen Rosenberg [place] ([id number]) Service: Oncology Author Type: Physician Type: Progress Notes Filed: 11/02/2019 10:33 AM Note Text: Staff oncology: I have reviewed the note obtained and documented by the jorden french and I personally participated in the kelley components. I have discus sed the case and management of the patient's care. The following comments revise or confirm relevant kelley components of their note. 79 M with history of RUL NSCLC (Stage IA) s/p SBRT (50 Gy in 5 fx) completed 03/22/16 admitted now with new L hilar mass. Likely has recurrent/metastatic disease. Plan for bronchoscopy on y 11/02. Also need to monitor Hb and Plt. Workup thus far negative. Shaheen Rosenberg MD MA Associate Staff [facility] [place] November 02, 2019 nursing prog on NURSING PROG HNO ID: [id number] Normal 11-02-19 [facility] Author: Arlette JasmineRn) JUNIE Guillermo [place] ([id number]) Service: Nursing Author Type: Registered Nurse Type: Nursing Progress Note Filed: 11/02/2019 6:50 PM Note Text: RN updated that patient respiratory status remains the same with patient unable to lie flat. Ordering provider aware and order for MR I remaining in place until patient can receive lasix and overnight monitori ng. Reassessment and MRI scan order to be reevaluated 11/03/2019 per floor RN. NURSING PROG HNO ID: [id number] Normal 11-02-19 [facility] Author: Arlette JasmineRn) JUNIE Guillermo [place] ([id number]) Service: Nursing Author Type: Registered Nurse Type: Nursing Progress Note Filed: 11/02/2019 10:04 AM Note Text: Handoff report obtained from floor RN for patient MRI scan. Pt unable to lie flat during trial due to respiratory status. RN to notif y ordering provider and notify imaging of status update for scan. cbc on 2019-11-02 Absolute nRBC 0.82 <0.01 k/uL High 11-02-2019 [facility] ([id number]) Comment: Performed By: #### CBC, BMP ####[facility] [address] [place], [place] [phone] Erythrocyte distribution 28.9 11.5-15.0 % High 11-01 [facility] width (RBC) [Ratio] [place] (79314) Comment: Performed By: #### CBC, BMP ####[facility] [address], [place] [phone] Hematocrit (Bld) [Volume 26.0 39.0-51.0 % Low 11-01 [facility] fraction] ([id number]) Comment: Performed By: #### CBC, BMP ####[facility] [address] [place], [place] [phone] Hemoglobin (Bld) 7.8 13.0-17.0 g/dL Low 11-02-2019 [facility] [Mass/Vol] [place] (67765) Comment: Performed By: #### CBC, BMP ####[place] [address], [place] [phone] MCH (RBC) [Entitic mass] 24.0 26.0-34.0 pG Low 11-01 [facility] (25122) Comment: Performed By: #### CBC, BMP ####[place] [address], [place] [phone] MCHC (RBC) [Mass/Vol] 30.0 30.5-36.0 g/dL Low 11-02-19 20 [facility] (00604) Comment: Performed By: #### CBC, BMP ####[address], [place] [phone]- [phone] MCV (RBC) [Entitic vol] 80.0 80.0-100.0 fL Normal 11-01 [facility] (43193) Comment: Performed By: #### CBC, BMP ####[place] [address], [place] [phone] Platelet mean <<DO NOT REPORT>> 9.0-12.7 Normal 11-02-19 [facility] volume (Bld) [place] ([id number]) [Entitic vol] Comment: Performed By: #### CBC, BMP ####[place] [address], [place] [phone] Platelets (Bld) [#/Vol] 36 150-400 k/uL Low 2019 [facility] (82755) Comment: Result Comment: Result check ed and verified No clot detected. Performed By: #### CBC, BMP ####[place] [address], [place] [phone] RBC (Bld) [#/Vol] 3.25 4.20-6.00 m/uL Low 11-02-2019 [facility] (20508) Comment: Performed By: #### CBC, BMP ####[place] [address], [place] [phone] WBC (Bld) [#/Vol] 9.84 3.70-11.00 k/uL Normal 11-02-2019 [facility] (14991) Comment: Performed By: #### CBC, BMP ####[place] [address], [place] [phone] basic metabolic panl on 2019-11-02 Anion gap [Moles/Vol] 16 9-18 mmol/L Normal 11-02-19 [facility] (70940) Comment: Performed By: #### CBC, BMP ####[place] [address] [place], [place] [phone] Calcium [Mass/Vol] 9.5 8.5-10.2 mg/dL Normal 11-02-2019 [facility] (91655) Comment: Performed By: #### CBC, BMP ####[place] [address], [place] [phone] Chloride [Moles/Vol] 103 97-105 mmol/L Normal 0 [facility] (17615) Comment: Performed By: #### CBC, BMP ####[place] [address], [place] [phone] CO2 [Moles/Vol] 24 22-30 mmol/L Normal 11-02-2019 [facility] (26010) Comment: Performed By: #### CBC, BMP ####[place] [address], [place] [phone] Creatinine [Mass/Vol] 1.18 0.73-1.22 mg/dL Normal 11-02-19 20 [facility] (04878) Comment: Performed By: #### CBC, BMP ####[place] [address] [place], [place] [phone] eGFR- Amer. >60 Normal 11-02-2019 [facility] (95135) Comment: Performed By: #### SAUMYA, BMP ####[facility] [place], [place] [phone] GFR/1.73 sq M predicted among 59 . Normal 11-02-2019 [facility] non-blacks MDRD (S/P/Bld) [Vol (72598) rate/Area] Comment: Result Comment: eGFR (Estima alejandrina GFR) Units of measure: mL/min/1.73 meters squared eGFR is derived from the ree xpressed MDRD Study equation using the following parameters: serum creatinine, age, gender and race. The creatinine assay has been calibrated to be traceable to IDMS. An eGFR <60 mL/min/1.73m2 fo r >3 months is consistent with chronic kidney disease. Refer to KDOQI guidelines for clinical interpretation. In patients with unstable re nal function, e.g. those with acute kidney injury, the eGFR may not accurately reflect actual GFR. Performed By: #### CBC, BMP ####[facility] [place], [place] [phone] Glucose [Mass/Vol] 144 74-99 mg/dL High 11-02-2019 [facility] (04534) Comment: Result Comment: The [place] [employer] (ADA) provides guidance for cutoff values for fasting glucose and random glucose. The ADA defines fasting as no caloric intake for at least 8 hours. Fas ting plasma glucose results between 100 to 125 mg/dL indicate increased risk for diabetes (prediabetes). Fasting plasma glucose resul ts greater than or equal to 126 mg/dL meet the criteria for diagnosis of diabetes. In the absence of unequivocal hyperglycemia, results should be confirmed by repeat testing. In a patient with classic s ymptoms of hyperglycemia or hyperglycemic crisis, random plasma glucose results greater than or equal to 200 mg/dL meet the criteria for diagnosis of diabetes. Reference: Standards of [facility] Care in Diabetes 2016, [place] [employer]. Diabetes Care. 2016.39(Suppl 1). Performed By: #### CBC, BMP ####[facility], [place] [phone] Potassium [Moles/Vol] 3.3 3.7-5.1 mmol/L Low 11-02-19 [facility] (57009) Comment: Performed By: #### CBC, BMP ####[address], [place] [phone] Sodium [Moles/Vol] 143 136-144 mmol/L Normal 11-02-2019 [facility] (70781) Comment: Performed By: #### CBC, BMP ####[place] [address], [place] [phone] Urea nitrogen [Mass/Vol] 38 9-24 mg/dL High 11-01 [facility] (43453) Comment: Performed By: #### CBC, BMP ####[place] [phone] type and screen on 2019-11-01 ABO/RH(D) O POSITIVE Normal 11-01-2019 [facility] (54008) Comment: Performed By: #### TSCR #### [address] [place] [phone] path interp w cbcdif on 2019-11-01 Abs Baso 0.00 <0.11 k/uL Normal 11-01-2019 [facility] (28794) Comment: Performed By: #### NTBNP, BM P, HAPTO, IRON, PTT, DDMER, FIBCT, FERR, STREV ####[facility] Laborat rffbk[address]CChap[place], [place] [phone] Abs Canadian 0.42 <0.87 k/uL Normal 11-01-2019 [facility] (13043) Comment: Performed By: #### NTBNP, BM P, HAPTO, IRON, PTT, DDMER, FIBCT, FERR, STREV ####[facility] Laborat [address]ysa[address]CChap[place], [place] [phone] Abs Neut 5.94 1.45-7.50 k/uL Normal 11-01-2019 [facility] (14375) Comment: Performed By: #### NTBNP, BM P, HAPTO, IRON, PTT, DDMER, FIBCT, FERR, STREV ####[facility] Laborat [address]Cleveland[place], [place] [phone] Absolute nRBC 1.10 <0.01 k/uL High 11-01-2019 [facility] (69902) Comment: Performed By: #### NTBNP, BM P, HAPTO, IRON, PTT, DDMER, FIBCT, FERR, STREV ####[facility] oivil[address] [facility]Creg[facility], [place] [phone] ANC(includeSEG+BAND) 5.94 k/uL Normal 0 [facility] (00491) Comment: Performed By: #### NTBNP, BM P, HAPTO, IRON, PTT, DDMER, FIBCT, FERR, STREV ####[facility] [address]vsqx[address]CCurt[place] [phone] Anisocytosis Ql (Bld) Present Normal 11-01-19 [facility] (25912) Comment: Performed By: #### NTBNP, BM P, HAPTO, IRON, PTT, DDMER, FIBCT, FERR, STREV ####[facility] [address]xav[address] AveClevelcone health [facility], [place] [phone] Basophils/100 WBC (Bld) 0.0 % Normal 2019 [facility] (27198) Comment: Performed By: #### NTBNP, BM P, HAPTO, IRON, PTT, DDMER, FIBCT, FERR, STREV ####[facility] [address]qecp[address]CChap[place], [place] [phone] DTYPE Manual Diff Normal 11-01-2019 [facility] (76925) Comment: Performed By: #### NTBNP, BM P, HAPTO, IRON, PTT, DDMER, FIBCT, FERR, STREV ####[facility] [address]qed[address] AveClevelandJason [place] [phone] Eosinophils (Bld) [#/Vol] 0.00 <0.46 k/uL Normal 10-13 [facility] (67396) Comment: Performed By: #### NTBNP, BM P, HAPTO, IRON, PTT, DDMER, FIBCT, FERR, STREV ####[facility] [address] AveClevelandJason [place] [phone] Eosinophils/100 WBC (Bld) 0.0 % Normal 10-13 [facility] (10340) Comment: Performed By: #### NTBNP, BM P, HAPTO, IRON, PTT, DDMER, FIBCT, FERR, STREV ####[facility] whuze[address] AveCCurt[place] [phone] Erythrocyte distribution 29.2 11.5-15.0 % High 10-31 [facility] width (RBC) [Ratio] [place] (28498) Comment: Performed By: #### NTBNP, BM P, HAPTO, IRON, PTT, DDMER, FIBCT, FERR, STREV ####[facility] [address]hwik[address] AveClevelJordan [place] [phone] Hematocrit (Bld) [Volume 22.6 39.0-51.0 % Low 10-31 [facility] fraction] (50147) Comment: Performed By: #### NTBNP, BM P, HAPTO, IRON, PTT, DDMER, FIBCT, FERR, STREV ####[facility] v[address] AveCCurtis [place] [phone] Hemoglobin (Bld) 6.4 13.0-17.0 g/dL Low 11-01-2019 [facility] [Mass/Vol] [place] (31256) Comment: Performed By: #### NTBNP, BM P, HAPTO, IRON, PTT, DDMER, FIBCT, FERR, STREV ####[facility]at zbatd[address]CChap[place], [place] [phone] Lymphocytes (Bld) [#/Vol] 1.87 1.00-4.00 k/uL Normal 10-13 [facility] (40557) Comment: Performed By: #### NTBNP, BM P, HAPTO, IRON, PTT, DDMER, FIBCT, FERR, STREV ####[facility] vzxnz[address]CChap[place], [place] [phone] Lymphocytes/100 WBC (Bld) 22.0 % Normal 10-13 [facility] (20183) Comment: Performed By: #### NTBNP, BM P, HAPTO, IRON, PTT, DDMER, FIBCT, FERR, STREV ####[facility], [place] [phone] MCH (RBC) [Entitic mass] 23.1 26.0-34.0 pG Low 10-31 [facility] (76009) Comment: Performed By: #### NTBNP, BM P, HAPTO, IRON, PTT, DDMER, FIBCT, FERR, STREV ####[facility], [place] [phone] MCHC (RBC) [Mass/Vol] 28.3 30.5-36.0 g/dL Low 11-01-19 [facility] (87669) Comment: Performed By: #### NTBNP, BM P, HAPTO, IRON, PTT, DDMER, FIBCT, FERR, STREV ####[facility] [id number]CChap[place], [place] [phone] MCV (RBC) [Entitic vol] 81.6 80.0-100.0 fL Normal 10-31 [facility] (81075) Comment: Performed By: #### NTBNP, BM P, HAPTO, IRON, PTT, DDMER, FIBCT, FERR, STREV ####[facility] grulb[address] AveClevelandJason [place] [phone] Monocytes/100 WBC (Bld) 5.0 % Normal 2019 [facility] (93752) Comment: Performed By: #### NTBNP, BM P, HAPTO, IRON, PTT, DDMER, FIBCT, FERR, STREV ####[facility] obfze[address] AveCleveland, [place] [phone] Myelo% 3.0 % Normal 11-01-2019 [facility] (01200) Comment: Performed By: #### NTBNP, BM P, HAPTO, IRON, PTT, DDMER, FIBCT, FERR, STREV ####[facility] wlybi[address] AveClevelJordan [place] [phone] Neutrophils/100 WBC (Bld) 70.0 % Normal 10-13 [facility] (47404) Comment: Result Comment: See Patholog ist Interpretation Performed By: #### NTBNP, BM P, HAPTO, IRON, PTT, DDMER, FIBCT, FERR, STREV ####[facility] opilq56[address] AveCCurtis [place] [phone] NRBCs 13 0 /100 WBC High 11-01-2019 [facility] (89363) Comment: Performed By: #### NTBNP, BM P, HAPTO, IRON, PTT, DDMER, FIBCT, FERR, STREV ####[facility] myidp[address] AveCCurtis [place] [phone] Ovalocytes Few Normal 11-01-2019 [facility] (43779) Comment: Performed By: #### NTBNP, BM P, HAPTO, IRON, PTT, DDMER, FIBCT, FERR, STREV ####[facility] [id number] AveCCurtis [place] [phone] Pathologist Interp SEE COMMENT Normal 0 [facility] (68358) Comment: Result Comment: Normocytic A nemia With Moderate Polychromasia Thrombocytopenia Performed By: #### NTBNP, BM P, HAPTO, IRON, PTT, DDMER, FIBCT, FERR, STREV ####[facility] [id number]CChapmans[place], [place] [phone] Pathologist: Reviewed by Maria L Normal 10-31 [facility] MD Freddie PhD ([id number]) [place] (06201) Comment: Performed By: #### NTBNP, BM P, HAPTO, IRON, PTT, DDMER, FIBCT, FERR, STREV ####[facility] onvsv[address] AveCChapmans[place], [place] [phone] Platelet mean <<DO NOT REPORT>> 9.0-12.7 Normal 11-01-19 20 [facility] volume (Bld) [place] (56557) [Entitic vol] Comment: Performed By: #### NTBNP, BM P, HAPTO, IRON, PTT, DDMER, FIBCT, FERR, STREV ####[facility] ydhnc[address] AveCChapmans[place], [place] [phone] Platelets (Bld) [#/Vol] 42 150-400 k/uL Low 2019 [facility] (60349) Comment: Result Comment: Result check ed and verified No clot detected. Performed By: #### NTBNP, BM P, HAPTO, IRON, PTT, DDMER, FIBCT, FERR, STREV ####[facility] iiulv[address] AveCChapmans[place], [place] [phone] Platelets (Bld) Platelet estimate Normal 2019 [facility] [#/Vol] decreased [place] (48267) Comment: Performed By: #### NTBNP, BM P, HAPTO, IRON, PTT, DDMER, FIBCT, FERR, STREV ####[facility] ighll[address]64 [address] AveCChapmans[place], [place] [phone] Polychromasia Moderate Normal 11-01-2019 [facility] (35887) Comment: Performed By: #### NTBNP, BM P, HAPTO, IRON, PTT, DDMER, FIBCT, FERR, STREV ####[facility] mclfc[address] AveClevelFrisco, [place] [phone] RBC (Bld) [#/Vol] 2.77 4.20-6.00 m/uL Low 11-01-2019 [facility] (42831) Comment: Performed By: #### NTBNP, BM P, HAPTO, IRON, PTT, DDMER, FIBCT, FERR, STREV ####[facility] tbwuz[address] AveCChapmans[place], [place] [phone] RBC Fragments Few Normal 11-01-2019 [facility] (46860) Comment: Performed By: #### NTBNP, BM P, HAPTO, IRON, PTT, DDMER, FIBCT, FERR, STREV ####[facility] srfgr[address] AveCChapmans[place], [place] [phone] Spherocytes Few Normal 11-01-2019 [facility] (73449) Comment: Performed By: #### NTBNP, BM P, HAPTO, IRON, PTT, DDMER, FIBCT, FERR, STREV ####[facility] [id number] AveCChap[place], [place] [phone] Target Cells Few Normal 11-01-2019 [facility] (21903) Comment: Performed By: #### NTBNP, BM P, HAPTO, IRON, PTT, DDMER, FIBCT, FERR, STREV ####[facility] bmhzz[address] AveCChapmans[place], [place] [phone] WBC (Bld) [#/Vol] 8.48 3.70-11.00 k/uL Normal 11-01-2019 [facility] (37993) Comment: Performed By: #### NTBNP, BM P, HAPTO, IRON, PTT, DDMER, FIBCT, FERR, STREV ####[facility] dqden[address] AveClevelFrisco, [place] [phone] nt pro bnp on 10-31 PRO B Natr Peptide 890 <450 pg/mL High 11-01-2019 [facility] (61696) Comment: Performed By: #### NTBNP, BM P, HAPTO, IRON, PTT, DDMER, FIBCT, FERR, STREV ####[facility] urlik[address] AveCChapmans[place], [place] [phone] iron and tibc on 01-11-19 Iron [Mass/Vol] 45 41-186 ug/dL Normal 11-01-2019 [facility] (69479) Comment: Performed By: #### NTBNP, BM P, HAPTO, IRON, PTT, DDMER, FIBCT, FERR, STREV ####[facility] nqphu[address] AveCChapmans[place], [place] [phone] TIBC 243 232-386 ug/dL Normal 11-01-2019 [facility] (73677) Comment: Performed By: #### NTBNP, BM P, HAPTO, IRON, PTT, DDMER, FIBCT, FERR, STREV ####[facility] ebknv4061 [address] AveCChapmans[place], [place] [phone] Transferrin Saturatn 19 15-57 % Normal 0 [facility] (33003) Comment: Performed By: #### NTBNP, BM P, HAPTO, IRON, PTT, DDMER, FIBCT, FERR, STREV ####[facility] ynmiz[address] AveCChapmans[place], [place] [phone] haptoglobin on 2019 Haptoglobin 189 31-238 mg/dL Normal 11-01-2019 [facility] (86806) Comment: Performed By: #### NTBNP, BM P, HAPTO, IRON, PTT, DDMER, FIBCT, FERR, STREV ####[facility] odtbw[address] AveCChapmans[place], [place] [phone] fibrinogen on 10-31 Fibrinogen 526 200-400 mg/dL High 11-01-2019 [facility] (96757) Comment: Result Comment: Result reche cked. Sample checked for a clot. Performed By: #### NTBNP, BM P, HAPTO, IRON, PTT, DDMER, FIBCT, FERR, STREV ####[facility]CChap[place], [place] [phone] ferritin on 2019-10 Ferritin [Mass/Vol] 62.5 30.3-565.7 ng/mL Normal 0 [facility] (12098) Comment: Performed By: #### NTBNP, BM P, HAPTO, IRON, PTT, DDMER, FIBCT, FERR, STREV ####[facility]CChap[place], [place] [phone] d dimer on D dimer 840 <500 ng/mL FEU High 11-01-2019 [facility] (24959) Comment: Result Comment: 500 ng/mL FE U is the D Dimer cutoff to exclude DVT (deep vein thrombosis) and PE (pulmonary embolism) in patients with a low pre test probability. Supplemental Comment: In pat ients over 50 years with a low pre test probability for DVT and/or PE, an age adjusted D dimer cutoff can be calculated as [age x 10] ng/mL FEU. For example, a patient of 88 years would have an age adju sted D dimer cutoff of 880 ng/mL FEU. For patients with a suspecte d DVT, a D dimer level below 500 ng/mL FEU has a negative predictive value of >98.9%, a sensitivity of >96.9% and a specificity of >35.7%. For patients with a suspecte d PE, a D dimer level below 500 ng/mL FEU has a negative predictive value of >98.5%, and a sensitivity of >96.5% and a specificity of >38.8%. Reference: Karin M, et al. KALEIGH 2014 311:1117 and Van Laurie N, et al. Katalina Int Med 2016 165:253. Sample checked for a clot. Performed By: #### NTBNP, BM P, HAPTO, IRON, PTT, DDMER, FIBCT, FERR, STREV ####[facility] [address] [place], [place] [phone] confirm blood type on 2019-11-01 ABO/RH(D) O POSITIVE Normal 11-01-2019 [facility] (31030) Comment: Performed By: #### CONABO ## ##[place] [phone] cbc on 2019-11-01 Absolute nRBC 0.84 <0.01 k/uL High 11-01-2019 [facility] (58553) Comment: Performed By: #### CBC ####C [place] [phone] Erythrocyte distribution 29.2 11.5-15.0 % High 10-31 [facility] width (RBC) [Ratio] [place] (03446) Comment: Performed By: #### CBC ####C [place] [phone] Hematocrit (Bld) [Volume 24.4 39.0-51.0 % Low 10-31 [facility] fraction] (22101) Comment: Performed By: #### CBC ####C [place] [phone] Hemoglobin (Bld) 7.3 13.0-17.0 g/dL Low 11-01-2019 [facility] [Mass/Vol] [place] (89352) Comment: Performed By: #### CBC ####C [place] [phone] MCH (RBC) [Entitic mass] 24.3 26.0-34.0 pG Low 10-31 [facility] (47244) Comment: Performed By: #### CBC ####C [address] [phone] MCHC (RBC) [Mass/Vol] 29.9 30.5-36.0 g/dL Low 11-01-19 20 [facility] (37233) Comment: Performed By: #### CBC ####C [address] [phone] MCV (RBC) [Entitic vol] 81.1 80.0-100.0 fL Normal 10-31 [facility] (40309) Comment: Performed By: #### CBC ####C [address] [phone] Platelet mean <<DO NOT REPORT>> 9.0-12.7 Normal 11-01-19 [facility] volume (Bld) [place] (30422) [Entitic vol] Comment: Performed By: #### CBC ####C [address] [phone] Platelets (Bld) [#/Vol] 42 150-400 k/uL Low 2019 [facility] (36008) Comment: Result Comment: Result check ed and verified No clot detected. Performed By: #### CBC ####C [address] [phone] RBC (Bld) [#/Vol] 3.01 4.20-6.00 m/uL Low 11-01-2019 [facility] (65614) Comment: Performed By: #### CBC ####C [address] [phone] WBC (Bld) [#/Vol] 9.13 3.70-11.00 k/uL Normal 11-01-2019 [facility] (13953) Comment: Performed By: #### CBC ####C [place] [address] [place], [place] [phone] basic metabolic panl on 2019-11-01 Anion gap [Moles/Vol] 12 9-18 mmol/L Normal 11-01-19 [facility] (11151) Comment: Performed By: #### NTBNP, BM P, HAPTO, IRON, PTT, DDMER, FIBCT, FERR, STREV ####[facility], [place] [phone] Calcium [Mass/Vol] 9.5 8.5-10.2 mg/dL Normal 11-01-2019 [facility] (53172) Comment: Performed By: #### NTBNP, BM P, HAPTO, IRON, PTT, DDMER, FIBCT, FERR, STREV ####[facility] [place], [place] [phone] Chloride [Moles/Vol] 105 97-105 mmol/L Normal [facility] (21101) Comment: Performed By: #### NTBNP, BM P, HAPTO, IRON, PTT, DDMER, FIBCT, FERR, STREV ####[facility], [place] [phone] CO2 [Moles/Vol] 29 22-30 mmol/L Normal 11-01-2019 [facility] (93026) Comment: Performed By: #### NTBNP, BM P, HAPTO, IRON, PTT, DDMER, FIBCT, FERR, STREV ####[facility] vfiww[address] [place], [place] [phone] Creatinine [Mass/Vol] 1.40 0.73-1.22 mg/dL High 11-01-19 [facility] (90305) Comment: Performed By: #### NTBNP, BM P, HAPTO, IRON, PTT, DDMER, FIBCT, FERR, STREV ####[facility] [address] [place], [place] [phone] eGFR- Amer. 59 Normal 11-01-2019 [facility] (20173) Comment: Performed By: #### NTBNP, BM P, HAPTO, IRON, PTT, DDMER, FIBCT, FERR, STREV ####[facility] [address] [place], [place] [phone] GFR/1.73 sq M predicted among 49 . Normal 11-01-2019 [facility] non-blacks MDRD (S/P/Bld) [Vol (06827) rate/Area] Comment: Result Comment: eGFR (Estima alejandrina GFR) Units of measure: mL/min/1.73 meters squared eGFR is derived from the ree xpressed MDRD Study equation using the following parameters: serum creatinine, age, gender and race. The creatinine assay has been calibrated to be traceable to IDMS. An eGFR <60 mL/min/1.73m2 fo r >3 months is consistent with chronic kidney disease. Refer to KDOQI guidelines for clinical interpretation. In patients with unstable re nal function, e.g. those with acute kidney injury, the eGFR may not accurately reflect actual GFR. Performed By: #### NTBNP, BM P, HAPTO, IRON, PTT, DDMER, FIBCT, FERR, STREV ####[facility] [address] [place], [place] [phone] Glucose [Mass/Vol] 149 74-99 mg/dL High 11-01-2019 [facility] (92842) Comment: Result Comment: The [place] [employer] (ADA) provides guidance for cutoff values for fasting glucose and random glucose. The ADA defines fasting as no caloric intake for at least 8 hours. Fas ting plasma glucose results between 100 to 125 mg/dL indicate increased risk for diabetes (prediabetes). Fasting plasma glucose resul ts greater than or equal to 126 mg/dL meet the criteria for diagnosis of diabetes. In the absence of unequivocal hyperglycemia, results should be confirmed by repeat testing. In a patient with classic s ymptoms of hyperglycemia or hyperglycemic crisis, random plasma glucose results greater than or equal to 200 mg/dL meet the criteria for diagnosis of diabetes. Reference: Standards of [facility] Care in Diabetes 2016, [place] [employer]. Diabetes Care. 2016.39(Suppl 1). Performed By: #### NTBNP, BM P, HAPTO, IRON, PTT, DDMER, FIBCT, FERR, STREV ####[facility] [id number] AveCChap[place], [place] [phone] Potassium [Moles/Vol] 3.4 3.7-5.1 mmol/L Low 11-01-19 20 [facility] (45107) Comment: Performed By: #### NTBNP, BM P, HAPTO, IRON, PTT, DDMER, FIBCT, FERR, STREV ####[facility] taitk[address] AveCChap[place], [place] [phone] Sodium [Moles/Vol] 146 136-144 mmol/L High 11-01-2019 [facility] (64908) Comment: Performed By: #### NTBNP, BM P, HAPTO, IRON, PTT, DDMER, FIBCT, FERR, STREV ####[facility] ndmpj46[address] [place], [place] [phone] Urea nitrogen [Mass/Vol] 39 9-24 mg/dL High 10-31 [facility] (78154) Comment: Performed By: #### NTBNP, BM P, HAPTO, IRON, PTT, DDMER, FIBCT, FERR, STREV ####[facility] thnlq[address] [place], [place] [phone] aptt on 2019-11-01 aPTT Coag (Bld) [Time] 26.2 23.0-32.4 sec Normal 020 [facility] (94631) Comment: Result Comment: Unfractionat ed Heparin Therapeutic Ranges: Standard Heparin Nomogram: 5 3 to 78 seconds (anti-Xa level of 0.3 to 0.7 U/ml) Low Dose/ACS Nomogram: 49 to 67 seconds (anti-Xa level of 0.2 to 0.5 U/ml) Stroke Treatment Nomogram: 4 9 to 67 seconds (anti-Xa level of 0.2 to 0.5 U/ml) Note: The APTT therapeutic r mackenzie has been determined for the current lot of laboratory APTT reagent in use throughout the [facility]. Performed By: #### NTBNP, BM P, HAPTO, IRON, PTT, DDMER, FIBCT, FERR, STREV ####[facility] [id number] [place], [place] [phone] xr chest 1v frontal port on 2019-10-31 XR CHEST 1V * * *Final Report* * * Normal 10-30 [facility] FRONTAL PORT DATE OF EXAM: Oct 31 2019 7:58PM [place] (83656) YENY [id number] - XR CHEST 1V FRONTAL PORT / PROCEDURE REASON: Acute respiratory illness * * * * Physician Interpretation * * * * EXAMINATION: CHEST RADIOGRAPH (PORTABLE SINGLE VIEW AP) Exam Date/Time: 10/31/2019 7:58 PM Clinical History: Acute respiratory illness MQ: [id number] Comparison: 05/20/2019 RESULT: Lines, tubes, and devices: None. Lungs and pleura: Development of diffuse groundglass opaciti es in the left hemithorax suggesting layering or loculated pleural eff usion and partial left lung atelectasis. Mucoid impaction on the left is considered. Asymmetric edema or inflammatory changes cannot be excluded. Nodular lesions remain in the upper right lung. Tiny right p neumothorax remains. Cardiomediastinal silhouette: Stable cardiomediastinal silho uette. Other: . IMPRESSION: See result. 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 System: PSCB Transcribe Date/Time: Oct 31 2019 10:04P Dictated by : TITA GARZON MD This examination was interpreted and the report reviewed and electronically signed by: TITA GARZON MD on Oct 31 2019 10:06PM EST [id number] staph aureus pcr on 2019-10-31 MRSA PCR Negative for MRSA by PCR. Normal 10-12 [facility] (03625) Comment: Performed By: #### SAPCR ### #[place] [address], [place] [phone] S aureus Spec Source Nasal Normal 0 [facility] (39281) Comment: Performed By: #### SAPCR ### #[place] [address], [place] [phone] Staph aureus PCR Negative for Normal 10-31-2019 [facility] Staphylococcus aureus by [place] (29195) PCR. Comment: Performed By: #### SAPCR ### #[place] [address], [place] [phone] s pneumo ag detect on 2019-10-31 S pneumo Ag Sp. Request/Comment: - Specimen received in sterile co ntainer. Normal 10-31-2019 [facility] Detect Test Result - Negative for S .pneumoniae antigen. Presumptive negative for pneumococcal pneumonia, suggesting no current or recent pneumococcal infection. Infection due to S.pneumoniae cannot be ruled ou [place] (75493) t since the antigen present in the sample may be below the detection limit of the test. Comment: Performed By: #### SPNAG ### [address] [phone] resp panel by pcr o n 2019-10-31 Adenovirus Negative Negative Normal 10-31-2019 [facility] (94080) Comment: Performed By: #### RPPCR ### #[place] [address], [place] [phone] C. pneumoniae Negative Negative Normal 10-31-2019 [facility] (05255) Comment: Performed By: #### RPPCR ### [address], [place] [phone] Coronavirus 229E Negative Negative Normal 10-31-2019 [facility] (81462) Comment: Performed By: #### RPPCR ### [address], [place] [phone] Coronavirus HKU1 Negative Negative Normal 10-31-2019 [facility] (58050) Comment: Performed By: #### RPPCR ### #[place] [address] [place] [phone] Coronavirus NL63 Negative Negative Normal 10-31-2019 [facility] (40267) Comment: Performed By: #### RPPCR ### #[place] [address] [place] [phone] Coronavirus OC43 Negative Negative Normal 10-31-2019 [facility] (55080) Comment: Performed By: #### RPPCR ### #[place] [address] [place] [phone] H Metapneumovirus Negative Negative Normal 10-31-2019 [facility] (15193) Comment: Performed By: #### RPPCR ### #[place] [address] [place] [phone] Human Bocavirus Negative Negative Normal 10-31-2019 [facility] (52535) Comment: Performed By: #### RPPCR ### #[place] [address] [place] [phone] Influenza A Virus Negative Negative Normal 10-31-2019 [facility] (46398) Comment: Performed By: #### RPPCR ### #[place] [address] [place] [phone] Influenza B Virus Negative Negative Normal 10-31-2019 [facility] (21103) Comment: Performed By: #### RPPCR ### #[place] [address] [place] [phone] M. pneumoniae Negative Negative Normal 10-31-2019 [facility] (07240) Comment: Performed By: #### RPPCR ### #[place] [address], [place] [phone] Parainfluenza 1 Negative Negative Normal 10-31-2019 [facility] (45735) Comment: Performed By: #### RPPCR ### #[place] [address], [place] [phone] Parainfluenza 2 Negative Negative Normal 10-31-2019 [facility] (62598) Comment: Performed By: #### RPPCR ### #[place] [address] [place] [phone] Parainfluenza 3 Negative Negative Normal 10-31-2019 [facility] (89514) Comment: Performed By: #### RPPCR ### #[place] [address] [place] [phone] Parainfluenza 4 Negative Negative Normal 10-31-2019 [facility] (30559) Comment: Performed By: #### RPPCR ### #[place] [address] [phone] Resp Panel Source Nasopharyngeal Swab Normal [facility] (52554) Comment: Performed By: #### RPPCR ### #[place] [address] [place] [phone] Resp Syncytial Vir A Negative Negative Normal 0 [facility] (90917) Comment: Performed By: #### RPPCR ### #[place] [address] [place] [phone] Resp Syncytial Vir B Negative Negative Normal 0 [facility] (62998) Comment: Performed By: #### RPPCR ### #[place] [address] [place] [phone] Rhino/Enterovirus Negative Negative Normal 10-31-2019 [facility] (99156) Comment: Performed By: #### RPPCR ### #[place] [address], [place] [phone] protime on PT Coag (PPP) [Time] 1.0 0.9-1.3 s Normal 0 [facility] (34789) Comment: Result Comment: Vitamin K An tagonist (VKA) Therapeutic Range: INR 2 to 3 (Target INR of 2.5) Note: For patients treated w ith VKA drugs, such as warfarin, the [place] [employer] 2012 Guideline recommends a therapeutic INR range of 2 to 3 (target INR of 2.5). This recommendation includes high-risk patients with antiphospholipid syndrome with previous arterial or venous thromboembolism, current-generation mechanical or bioprosthetic aortic heart valve replacement. Note: Patients with toll mechanic al aortic valve replacement and additional risk factors for thromboembolic events (atrial fibrillation, previous thromboembolism, LV dysfunction, hypercoagulable conditions) or an older generation mecha nical AVR (i.e., ball in-Cage) or any mechanical MVR should have a INR therapeutic range of 2.5 to 3.5 (target INR of 3). Vitaliy GH, et al. Chest 2012 , 141:7S-47S Janet RA, et al. [facility] 20 , 70: 252-289 Performed By: #### PT, CMP, CBCDIF ####[place] [address] [place], [place] [address] [phone] PT Coag (PPP) [Time] 10.3 9.7-13.0 sec Normal 0 [facility] (73904) Comment: Performed By: #### PT, CMP, CBCDIF ####[facility] [address] [place], [place] [address] [phone] procalcitonin on 31-10-18 Procalcitonin 0.36 <0.09 ng/mL High 10-31-2019 [facility] (22246) Comment: Result Comment: For a guided interpretation of test results, please visit the Change in Procalcitonin Calculator, [email or web address]. Performed By: #### PROCAL ## ##[facility] [place], [place] [phone] nursing prog on NURSING PROG HNO ID: [id number] Normal 10-31-19 [facility] Author: Pati JasmineRn) JUNIE Wakefield [place] (81338) Service: ? Author Type: Registered Nurse Type: Nursing Progress Note Filed: 10/31/2019 5:42 PM Note Text: Admission/Transfer Note PATIENT NAME: Tiana Martínez Patient transferred from [facility] via bed in stable condition. Actions taken: Patient oriented to room, call light function and Patient rights. Skin assessed with Della LOZOYA. This note was completed by: Pati [place] RN NURSING PROG HNO ID: [id number] Normal 10-31-19 [facility] Author: Olimpia JasmineRn) JUNIE Calhoun [place] (31814) Service: ? Author Type: Registered Nurse Type: Nursing Progress Note Filed: 10/31/2019 5:41 PM Note Text: Nursing Progress Note Tiana Martínez [id number] COVID test came back negative, service notified Dr.Glav ramos, admitting notified for transfer. 1550 report called to [facility] for transfer to bed 08. 1610 patient upset about no visitor policy, ombudsmen pamphl et given to patient. 1620 patient off floor with transport to [facility]. This note was completed by: Olimpia Calhoun RN legionella urine ag on 2019-10-31 Legionella Urine Ag Negative Negative Normal 10-31-2019 [facility] ([id number]) Comment: Result Comment: Negative for L. pneumophila serogroup 1 antigen in urine, suggesting no recent or current infection. Legionnai res disease cannot be ruled out since ot her serogroups and species may also cause d isease. Performed By: #### LEGUAG ## ##[facility] [id number] [place], [place] [id number] [phone] hosp on 2019-10-31 HOSP Patient:Tiana Martínez Normal 10-31-19 [place] MRN: [facility] Height:5' 9(1.753 m) [place] Weight:202 lb (91.627 kg) ([id number]) Outpatient Medications as of 11/05/19: atorvastatin (LIPITOR) 40 mg tablet furosemide (LASIX) 40 mg tablet melatonin 3 mg tablet ELIQUIS 5 mg tab(s) TOPROL XL 50 mg 24 hr tablet olmesartan (BENICAR) 5 mg tablet rOPINIRole Hydrochloride 3 mg tablet fluticasone/umeclidin/vilanter (TRELEGY ELLIPTA INHALATION) latanoprost (XALATAN) 0.005 % ophthalmic solution Multivitamin capsule EPINEPHrine (EPIPEN 2-ANUEL) 0.3 mg/0.3 mL auto-injector albuterol HFA (PROAIR HFA) 90 mcg/actuation inhaler aspirin(ADULT ASPIRIN EC LOW STRENGTH 81 MG TAB, DELAYED REL EASE) Admission/Clinic Administered Medications as of 11/05/19: NaCl 0.9% iv infusion metoprolol tartrate (short acting) 12.5 mg tab(s) (LOPRESSOR ) aquaphor/nystatin ointment/cholestyramine 1:1:1 diaper ointm ent magnesium oxide 800 mg tab(s) (MAG-OX) albuterol 2.5 mg /3 mL (0.083 %) 2.5 mg (PROVENTIL) sodium chloride 7% solution 4 mL INHALATION ONLY clotrimazole 10 mg corinna (MYCELEX) salt and soda 5-10 mL oral liquid acetylcysteine 200 mg/mL (20 %) 200 mg (MUCOMYST) guaiFENesin 600 mg ER tab(s) (MUCINEX) latanoprost 0.005 % 1 Drop (XALATAN) atorvastatin 40 mg tab(s) (LIPITOR) therapeutic multivitamin 1 tablet tab(s) (THERA VITAMIN) rOPINIRole 3 mg tab(s) (REQUIP) NaCl 0.9% 3-5 mL ondansetron (PF) 4 mg injection (ZOFRAN) metoclopramide HCl 10 mg tab(s) (REGLAN) polyethylene glycol 3350 17 g packet (MIRALAX, GLYCOLAX) piperacillin-tazobactam iv piggyback 3.375 g in dextro se (iso-osmotic) 50 mL (ZOSYN) melatonin 3 mg tab(s) Problem List: Diverticulosis of colon (without mention of hemorrhage) [K57 .30] Hemorrhage of gastrointestinal tract, unspecified [K92.2] External hemorrhoids without mention of complication [K64.4] Internal hemorrhoids without mention of complication [K64.8] Elevated prostate specific antigen (PSA) [R97.20] Hypertrophy of prostate without urinary obstruction and ot her lower urinary tract symptoms (LUTS) [N40.0] Lung nodule [R91.1] Malignant neoplasm of upper lobe of right lung (HCC) [C34.11 ] Emphysema of lung (HCC) [J43.9] Respiratory failure with hypoxia (HCC) [J96.91] Nicotine use disorder, F17.2 [F17.200] Allergies: Bees Date Verified: 11/05/19 Lab Values Lab Value Units Date High Low POTA* 3.2 mmol/L 11/03/2019 5.1 3.7 MICHAELLE* 27.9 % 11/04/2019 51.0 39.0 Progress Notes ([facility]): Carmelo Rosen, RN, RN 11/03/2019 10:40 AM Signed Returned call to Tiana Martínez, Mr. Martínez 's son. He wanted to inform us that he was on his way up to see is father and to keep us in the loop regarding the PET scan and the bronch. I informed him that we were aware and were watching for results. Tiana Capone asked multiple questions soraya ding his father's lab work. I explained that it abnormal b ut he should address his questions to the physicians on G70 when they round. He states that he will discuss with the admitting physician. There was some qu estion/concern about the need for a bone marrow bx. Again, asked him to address this with the team on G70. Tiana Capone asked to have a follow up with Dr. Sanchez. Explained that we would want to have more data (results of PET, bronch, pathology) prior to having a follow up call/appointment. He states an understanding. Progress Notes (): Skylar Seay MD, MD 10/31/2019 10:05 PM Signed Solid Tumor Oncology 1 History and Physical PATIENT NAME: Tiana Martínez PRIMARY SERVICE: ADMISSION DAY 10/31/2019 HOSPITAL DAY: 0 CODE STATUS: Code Status: Not on file History of Presenting Illness Tiana Martínez is a 79 year o ld male transferred from [facility] where he presented with chief complaint of dyspnea. Patient reports that [facility] and what day was diagnosed with a new hilar left upper lobe mass that had rapidly grown since his last imaging in June. The patient has a history of lung cancer and COPD. He started expe riencing shortness of breath and chest pain, sharp, stabbing on the left side of his chest. He developed thicker white phlegm, difficult to expectorate, and wa s feeling short of breath. The patient did not previously require oxygen at home. Denied fevers, ch ills, nausea, vomiting or blood with coughing. Chest x-ray showed di ffusely opacified left lung suggestive of pneumonia and atelectasis, with possibl e postobstructive pneumonitis. A chest CTA showed no pulmo nary embolism arterial dissection, but showed a spiculated nodule in the right upper lobe measuring approximately 1.5 cm, with a large loculated left hilar ma ss with atelectasis in the lingula and left upper lobe, and a perihilar mass encasing the left pulm onary artery, measuring 6.8 x 4.9 x 6.6 cm in size. Also noted was enlargement of mediastinal nodes, the largest measuring approximate ly 5.7 x 3.4 cm. Labs were notable for creatinine of 1.54, lactic acid initially at 4, and then down trended to 2.7, platelets 51, WBC 10.6. He had no reported hypot ension but required up to 2 L of oxygen. at the outside hospital his p ain was managed by IV morphine, he was started on Rocephin and Zithromax. The patient was transferred to the [facility] at the suggestion of his outpatient oncologist, Dr. Sam Sanchez, for further manag ement and consideration of bronchoscopy. Briefly, they have the following significant past oncologic history: - Right upper lobe non-small cell lung cancer (s tage Ia) s/p SBRT (50 Gy in 5 fx) completed 03/22/16 -The patient continued to be monitored by CT, and showed no evidence of disease but a visible CT density continued to in crease slightly over the previous CTs, though negative on PET uptak e, concerning for post SBRT change vs progression of PET negative neoplasm -Was last seen by Dr. Sanchez, eventually on 04/23/[address]-guided biopsy of this pos sible mass. The biopsy from 05/20/2019 showed focally infarcted tissue without granulomas or malignant cells. Other PMH: - COPD, emphysema - p Afib, on apixiban 5 mg BID - T2DM, diet controlled - SCC of skin, thyroid cancer Upon arrival to [facility], the pat ieradha was hemodynamically stable w/ active complaints of SOB. His T was 36.8 ?C (98.2 ?F), BP was 139/75 and his pulse was 103, RR was 18 and oxygen saturation is 99% on 2L O2. Denies fever, chills, pal pitations, lightheadedness/dizziness, c hest pain, abdominal pain, n/v/d, pain or discomfort with urination. Endorses SOB . Complained of the restrictive visitation rules at [facility]. Lab Studies: Component Latest Ref Rng AND Units 10/31/2019 WBC 3.70 - 11.00 k/uL 9.17 RBC 4.20 - 6.00 m/uL 3.14 (L) Hemoglobin 13.0 - 17.0 g/dL 7.2 (L) Hematocrit 39.0 - 51.0 % 25.4 (L) Platelet Count 150 - 400 k/uL 41 (L) Lactate 0.5 - 2.2 mmol/L 2.1 Alkaline Phosphatase 38 - 113 U/L 108 AST 14 - 40 U/L 141 (H) BUN 9 - 24 mg/dL 41 (H) Creatinine 0.73 - 1.22 mg/dL 1.18 Sodium 136 - 144 mmol/L 146 (H) Potassium 3.7 - 5.1 mmol/L 3.4 (L) Chloride 97 - 105 mmol/L 107 (H) CO2 22 - 30 mmol/L 28 Covid19: negative Procalcitonin: 0.36 Nasal swab negative for MRSA by PCR. Review of Systems Entries in BOLD are positive ROS endorsed by the patient. All other ROS has been reviewed and is negative with the exception of the BOLD entr ies. GENERAL: Malaise, significant weight loss, fever, chills, ni ght sweats HEENT: Frequent or significant headaches, significant change s in vision or vision problems, significant ear problems or hea ring loss, nasal discharge or nose bleeds, sore throat, difficulty swallowing, mouth lesio ns NECK: Lumps, goiter, pain, and significant neck swelling RESPIRATORY: Cough, wheezing, shortness of breath, ROSARIO CARDIOVASCULAR: Chest pain, leg swelling, palpitations, orth opnea, PND GASTROINTESTINAL: Abdominal discomfort, blood in stools or black stools, change in bowel habits GENITOURINARY: Dysuria, freq uency, hesitancy, straining, hematuria, incontinence MUSCULOSKELETAL: Joint pain or swelling, back pain, and musc le pain NEUROLOGIC: Focal numbness or weakness, headaches and dizzin ess SKIN: Lesions, rash, and itching PSYCHIATRIC: Sleep disturban ce, mood disorder, and recent psychosocial stressors HEMATOLOGIC/LYMPHATIC/IMMUNOLOGIC: Prolonged bleeding, bru ising easily, and swollen nodes ENDOCRINE: Cold or heat intolerance, polyuria, polydipsia, a nd goiter Past medical history / surgical hx / family hx / social hx PAST MEDICAL HISTORY Diagnosis Date - Atrial fibrillation (HCC) - Basal 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 [id number] - COPD (chronic obstructive pulmonary disease) ([facility]) - CVA (cerebral vascular accident) ([facility]) 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 - Diverticulosis of colon (without mention of hemorrhage) - DM (diabetes mellitus) ([facility]) - Hemorrhage of gastrointestinal tract, unspecified - Hypercholesteremia - Lung cancer ([facility]) - Sebaceous cyst knee - Sebaceous cyst arm pit - Sebaceous cyst back PAST SURGICAL HISTORY Procedure Laterality Date - COLONOSCOP W/ OR W/O BRSH SPEC 06/14/07 WC inpt FAMILY HISTORY Problem Relation Age of Onset - Emphysema Mother - Heart disease Mother - Hypertension Mother - Stroke Mother - Heart Father - Alcohol/Drug Father - Hypertension Father - Stroke Father - Breast Cancer Sister - None Sister Social History Tobacco Use - Smoking status: Current Every Day Smoker Packs/day: 0.50 Years: 50.00 Pack years: 25.00 Types: Cigarettes - Smokeless tobacco: Never Used Substance Use Topics - Alcohol use: No - Drug use: No Medications AND Allergies Prior to admission meds: atorvastatin (LIPITOR) 40 mg tablet, Take 40 mg by mouth onc e daily. furosemide (LASIX) 40 mg tablet, Take 40 mg by mouth every 4 8 hours. ELIQUIS 5 mg tab(s), Take 5 mg by mouth twice daily. TOPROL XL 50 mg 24 hr tablet, Take 50 mg by mouth once daily . olmesartan (BENICAR) 5 mg tablet, Take 5 mg by mouth once da maicol. rOPINIRole Hydrochloride 3 mg tablet, Take 3 mg by mouth seth ly at bedtime. fluticasone/umeclidin/vilanter (TRELEGY ELLIPTA INHALATION), Inhale as instructed once daily. Multivitamin capsule, Take 1 capsule by mouth once daily. albuterol HFA (PROAIR HFA) 90 mcg/actuation inhaler, Inhale 2 Puffs as instructed as needed. aspirin(ADULT ASPIRIN EC LOW STRENGTH 81 MG TAB, DELAYED RELEASE), Take one(1) tablet daily. melatonin 3 mg tablet, Take 3 mg by mouth daily at bedtime. latanoprost (XALATAN) 0.005 % ophthalmic solution, 1 Drop daily at bedtime. EPINEPHrine (EPIPEN 2-ANUEL) 0.3 mg/0.3 mL auto-injector, Inje ct 0.3 mg intramuscularly as needed. CURRENT ALLERGIES: ALLERGIES Allergen Reactions - Bees Physical Exam BP 158/81 Pulse 100 Temp 36.8 ?C (98.2 ?F) (Oral) Resp 16 SpO2 96% Temp Av.7 ?C (98 ?F) Min: 36.7 ?C (98 ?F) Max: 36.7 ?C (98 ?F) Pulse Av Min: 111 Max: 111 No data recorded Cuff BP Min: 150/69 Max: 150/69 General appearance: in NAD, speaking in full coherent sentences, nondiaphoretic, cooperative with appropriate affect HEENT: anicteric sclera, EOMI, MMM. Non-cyanotic lips. Ton linn and posterior oropharynx normal. Teeth normal. Respiratory: Diminished breath sounds in NORY, LIL, LLL, Diff use expiratory wheezes. Diaphragmatic excursion and chest wall symmetry myriam ear equal and normal. No accessory muscle use. On 2L O2. Cardiovascular: RRR without gallop, or rubs or murmur. Non-displaced PMI. No parasternal heave. No carotid, abdominal aortic, femoral bruits noted. Normal pedal pulses bilaterally. 2+ peripheral edema noted in the u pper or lower extremities. Normal temperature of all 4 extremities. Abdomen/GI: Abdomen soft, non-tender, no n-distended. No masses or organomegaly noted. No hepatojugular reflux, no ascites Extremities: No clubbing or cyanosis of fingers. No cracking , pitting or petechiae on fingers. Capillary refill <2 sec bilaterally. Musculoskeletal: Spine shows no kyphosis or scoliosis. Muscles show no clear abnormality. Skin:No petechiae, ecchymoses, rash note d. No jaundice, no palmar erythema, no spider angiomas. Neurologic: AOx3, able to vocalize, moves all extremities, n o asterixis Psychiatric: no abnormalities with mood with congruent affec t Fluid Balance Fluid balance: Intake/Output Summary (Last 24 hours) at 10/31/20192135 Last data filed at 10/31/2019 193 Gross per 24 hour Intake 50 ml Output 227 ml Net -177 ml Last Admit Weight change: Historical weights (outpatient/ED visits) Last 8 Encounter Wt Readings: Date: Wt: 06/11/2019 90.7 kg (200 lb) 04/24/2019 88.5 kg (195 lb) 12/31/2018 83.2 kg (183 lb 8 oz) 05/02/2018 83.5 kg (184 lb) 12/21/2017 85.3 kg (188 lb) 12/21/2017 85.3 kg (188 lb) 12/01/2016 86.6 kg (191 lb) 11/20/2016 87.1 kg (192 lb) Labs CBC: Recent Labs 10/31/19 1357 WBC 9.17 HB 7.2* HCT 25.4* PLT 41* MCV 80.9 RDWCV 29.2* NEUTP 73.0 ABSNEUT 6.69 LYMPHP 19.0 MONOP 4.0 EODINP 1.0 COAG: Recent Labs 10/31/19 1357 INR 1.0 BMP: Recent Labs 10/31/19 1357 10/31/19 1343 GLUC 145* -- NA 146* -- K 3.4* -- CHLOR 107* -- CO2 28 31* ANION 11 -- BUN 41* -- CREAT 1.18 -- CHEM: Recent Labs 10/31/19 1357 ALB 3.0* TPROT 5.5* CA 9.4 HEPATIC: Recent Labs 10/31/19 1357 ALKPHOS 108 ALT 56* AST 141* TBILI 0.4 URINALYSIS:No results for input(s): PH, SPGR, UG SERGEY, UBILI, UKET, UHB, UPROT, UROBIL, UWBC, SSA in the last 168 hours. Invalid input(s): NITR CARDIAC: No results for input(s): CKTEST , CKMB, CKMBP, TROPT, PBNP in the last [address] 12/24/2018 Spiculated right upper lobe subpleural nodule is mildly larg er and more consolidative in comparison to prior scans, and suspicious f or recurrence/growth. ?Notably, the nodule demonstrated residua l mild FDG avidity on a remote PET/CT from 01/15/2018 and previously se en groundglass components of the nodule are now replaced with s olid components. Interval resolution of diffuse centrilobular nodules and per ibronchial groundglass opacities compatible with resolved infection or aspiration. Stable 3 mm indeterminate left upper lobe nodule. ?New clust er of 2-4 mm centrilobular nodules in the RLL could be infectious/inflamm atory. ? Follow-up is suggested. CTA 10/31/2019 no pulmonary embolism arterial dis section. Spiculated nodule in the right upper lobe measuri ng approximately 1.5 cm, with a large loculated left hilar mass with atelectasis in the lingula and left upper lobe, and a perihilar mass encasing the left pulmonary artery, measuring 6.8 x 4.9 x 6.6 cm in size. Enlargement of mediastinal n odes, the largest measuring approximately 5.7 x 3.4 cm. Assessment and Plan 79 year old male PMH of Right upper lobe non-small cell lung cancer (stage Ia) s/p SBRT (50 Gy in 5 fx) com pleted 03/29, who presented with SOB, found to have a large loculated left hilar mass with atelectasis in the lingula and left upper lobe, and encasing the left pulmonary artery, with possibl e postobstructive pneumonitis. # NSCLC # large lung mass Plan: MRI brain wo/w IV contrast NM pet whole body F/u pulm recs re EBUS # postobstructive pneumonia/pneumonitis # hypoxia Plan: Repeat CXR Strep pneumo urine AG Legionella Ag urine RSV panel Covid-19 Continuous pulse oxymetry VBG Zosyn 3.75 q6h # COPD - duoneb PRN # ADHF Weight gain 2+ pedal edema Plan: - NT pro BNP - TTE - Tele - Fluid restriction (<1.5 L), salt restriction (<2g) - Daily wgts - Strict I/Os - Suppl O2 to titrate O2>92%, CPAP/BiPAP if needed - Lasix 40 mg IV / gtt, monitor Cr, lytes - continue home ARB - reduce BB # thrombocytopenia Platelet Count (k/uL) Date Value 10/31/2019 41 (L) 05/15/2019 249 01/13/2016 252 unclear precipitating factor Plan: CTM Consider heme consult No AC # anemia Hemoglobin (g/dL) Date Value 10/31/2019 7.2 (L) 05/15/2019 12.6 (L) 01/13/2016 15.7 Plan: CTM Daily CBC F/u DIC labs Iron studies Rounding Checklist: Diet/Nutrition: heart healthy Mobility status: mobile VTE Prophylaxis: deferred due to thrombocytopenia Pain management: tylenol Glycemic control: SSI Code Status: full Dispo Planning: pending SIGNATURE: Skylar Seay MD PhD PGY-1 PATIENT NAME: Tiana medina DATE: 10/31/2019 TIME: 9:36 PM PAGER: [phone] This is a preliminary note which reflects the assessment of the authoring medicine resident only. The patient remains to be seen by and discussed with oncology staff, at which time the final assessme nt and recommendations may be edited. Olimpia Calhoun, RN, RN 10/31/2019 5:41 PM Addendum Nursing Progress Note Tiana Martínez [id number] 1525 COVID test came back negative, service notified Dr.Glav ramos, admitting notified for transfer. 1550 report called to [facility] for transfer to bed 08. 1610 patient upset about no visitor policy, ombudsmen pamphl et given to patient. 1620 patient off floor with transport to [facility]. This note was completed by: Olimpia Calhoun RN Previous Version Pati Wakefield, RN, RN 10/31/2019 5:42 PM Sig lee Admission/Transfer Note PATIENT NAME: Tiana Martínez Patient transferred from [facility] via bed in stable condition. Actions taken: Patient orien alejandrina to room, call light function and Patient rights. Skin assessed with Della LOZOYA. This note was completed by: Pati Wakefield, RN Arlette Guillermo, RN, RN 11/02/2019 10:04 AM Signed Handoff report obtained from floor RN for patient MRI scan. Pt unable to lie flat during trial due to res piratory status. RN to notify ordering provider and notify imaging of status update for scan. Shaheen Rosenberg MD 11/02/2019 10:33 AM Signed Staff oncology: I have reviewed the note obtained and documented by the jorden french and I personally participated in the kelley components. I have discussed the case and management of the patient's care. The following comments rev ise or confirm relevant kelley components of their note. 79 M with history of RUL NSCLC (Stage IA) s/p SBRT (50 Gy in 5 fx) completed 03/22/16 admitted now with new L hilar mass. Likely has rec urrent/metastatic disease. Plan for bronchosco py on Thursday 11/02. Also need to monitor Hb and Plt. Workup thus far negative. Shaheen Rosenberg MD MA Associate Staff [facility] [place] November 02, 2019 Shaheen Rosenberg MD 11/02/2019 5:40 PM Addendum Solid Tumor Oncology 1 Progress Note Progress Note PATIENT NAME: Tiana Martínez PRIMARY SERVICE: STO1 ADMISSION DAY 10/31/2019 HOSPITAL DAY: 2 CODE STATUS: Full Plan for Today (11/02/2019) - diuresis w/ 40 mg IV given worsening SOB - monitor weights, I/O - heart healthy diet - monitor h/h BID - scheduled duonebs - f/u bronchoscopy tomorrow Interval Events - NAEO, VSS, afebrile - Hgb responded appropriately to 1 unit pRBC, Hemoglobin (g/dL) Date Value 11/02/2019 7.8 (L) 11/01/2019 7.3 (L) 11/01/2019 6.4 (L) - platelets continue to downtrend Platelet Count (k/uL) Date Value 11/02/2019 36 (L) 11/01/2019 42 (L) 11/01/2019 42 (L) 10/31/2019 41 (L) 05/15/2019 249 01/13/2016 252 - was unable to lay flat for his MRI due to worsening SOB - 24 hour Vitals: Vital Signs (last filed) Range in last 24h Temp: 36.6 ?C (97.9 ?F) (11/02/19 0916) Temp Min : 36.5 ?C (97.7 ?F) Max: 36.8 ?C (98.2 ?F) Pulse: 70 (11/02/19915) Pulse Min: 70 Max: 102 BP: 144/72 (11/02/19915) BP Min: 137/76 Max: 156/83 Resp: 16 (11/02/19915) Resp Min: 16 Max: 20 SpO2: 100 % (11/02/19915) SpO2 Min: 98 % Max: 100 % O2 Therapy: Nasal Cannula (11/02/19915) Liters: 3.00 (11/02/19915) Physical Exam BP 144/72 Pulse 70 Temp 36.6 ?C (97.9 ?F) (Oral) Resp 16 SpO2 100% General appearance: in NAD, speaking in full coherent sentences, nondiaphoretic, cooperative with appropriate affect HEENT: anicteric sclera, EOMI, MMM. Non-cyanotic lips. Ton linn and posterior oropharynx normal. Teeth normal. Respiratory: Diminished breath sounds in NORY, LIL, LLL, Diff use expiratory wheezes. Diaphragmatic excursion and chest wall symmetry myriam ear equal and normal. No accessory muscle use. On 2L O2. Cardiovascular: RRR without gallop, or rubs or murmur. Non-displaced PMI. No parasternal heave. No carotid, abdominal aortic, femoral bruits noted. Normal pedal pulses bilaterally. 2+ peripheral edema noted in the u pper or lower extremities. Normal temperature of all 4 extremities. Abdomen/GI: Abdomen soft, non-tender, no n-distended. No masses or organomegaly noted. No hepatojugular reflux, no ascites Extremities: No clubbing or cyanosis of fingers. No cracking , pitting or petechiae on fingers. Capillary refill <2 sec bilaterally. Musculoskeletal: Spine shows no kyphosis or scoliosis. Muscles show no clear abnormality. Skin:No petechiae, ecchymoses, rash note d. No jaundice, no palmar erythema, no spider angiomas. Neurologic: AOx3, able to vocalize, moves all extremities,?n o asterixis Psychiatric: no abnormalities with mood with congruent affec t Fluid Balance Intake/Output Summary (Last 24 hours) at 11/02/2019 1104 Last data filed at 11/02/2019 1046 Gross per 24 hour Intake 690 ml Output 950 ml Net -260 ml Last Admit Weight change: Historical weights (outpatient/ED visits) Last 8 Encounter Wt Readings: Date: Wt: 06/11/2019 90.7 kg (200 lb) 04/24/2019 88.5 kg (195 lb) 12/31/2018 83.2 kg (183 lb 8 oz) 05/02/2018 83.5 kg (184 lb) 12/21/2017 85.3 kg (188 lb) 12/21/2017 85.3 kg (188 lb) 12/01/2016 86.6 kg (191 lb) 11/20/2016 87.1 kg (192 lb) Intake/Output 10/31/19 0700 - 11/01/19 0659 11/01/19 07 - 11/02/19 065 9 11/02/19 07 - 11/03/19 0659 Intake (ml) 50 850 240 Output (ml) 952 550 400 Net (ml) -902 300 -160 Labs CBC: Recent Labs 11/02/19 0511/01/19 2142 11/01/19 0330 10/31/19 1357 WBC 9.84 9.13 8.48 9.17 HB 7.8* 7.3* 6.4* 7.2* HCT 26.0* 24.4* 22.6* 25.4* PLT 36* 42* 42* 41* MCV 80.0 81.1 81.6 80.9 RDWCV 28.9* 29.2* 29.2* 29.2* NEUTP -- -- 70.0 73.0 ABSNEUT -- -- 5.94 6.69 LYMPHP -- -- 22.0 19.0 MONOP -- -- 5.0 4.0 EODINP -- -- 0.0 1.0 COAG: Recent Labs 11/01/19 03310/31/19 1357 APTT 26.2 -- INR -- 1.0 BMP: Recent Labs 11/02/19 0544 11/01/19 03310/31/19 1357 10/31/19 1343 GLUC 144* 149* 145* -- NA 143 146* 146* -- K 3.3* 3.4* 3.4* -- CHLOR 103 105 107* -- CO2 24 29 28 31* ANION 16 12 11 -- BUN 38* 39* 41* -- CREAT 1.18 1.40* 1.18 -- CHEM: Recent Labs 11/02/19 0544 11/01/19 0330 10/31/19 1357 ALB -- -- 3.0* TPROT -- -- 5.5* CA 9.5 9.5 9.4 HEPATIC: Recent Labs 10/31/19 1357 ALKPHOS 108 ALT 56* AST 141* TBILI 0.4 Medications Scheduled salt and soda, 5-10 mL, q 6 H atorvastatin, 40 mg, AT BEDTIME therapeutic multivitamin, 1 tablet, DAILY rOPINIRole, 3 mg, TID NaCl 0.9%, 3-5 mL, q 12 H piperacillin-tazobactam, 3.375 g, q 8 H melatonin, 3 mg, AT BEDTIME metoprolol tartrate (short acting), 12.5 mg, q 12 H PRN ipratropium-albuterol, 3 mL, q 4 H PRN ondansetron (PF), 4 mg, q 6 H PRN metoclopramide HCl, 10 mg, q 6 H PRN polyethylene glycol 3350, 17 g, DAILY PRN perflutren lipid microspheres, 1.3 mL, DIRECTED PRN Infusion Medications: Micro BCx 10/[address] 12/24/2018 Spiculated right upper lobe subpleural nodule is mildly larg er and more consolidative in comparison to prior scans, and suspicious f or recurrence/growth. ?Notably, the nodule demonstrated residua l mild FDG avidity on a remote PET/CT from 01/15/2018 and previously se en groundglass components of the nodule are now replaced with s olid components. Interval resolution of diffuse centrilobular nodules and per ibronchial groundglass opacities compatible with resolved infection or aspiration. Stable 3 mm indeterminate left upper lobe nodule. ?New clust er of 2-4 mm centrilobular nodules in the RLL could be infectious/inflamm atory. ? Follow-up is suggested. ? CTA 10/31/2019 no pulmonary embolism arterial dis section. Spiculated nodule in the right upper lobe measuri ng approximately 1.5 cm, with a large loculated left hilar mass with atelectasis in the lingula and left upper lobe, and a perihilar mass encasing the left pulmonary artery, measuring 6.8 x 4.9 x 6.6 cm in size. Enlargement of mediastinal n odes, the largest measuring approximately 5.7 x 3.4 cm. Oncologic History - Right upper lobe non-small cell lung cancer (s tage Ia) s/p SBRT (50 Gy in 5 fx) completed 03/22/16 -The patient continued to be monitored by CT, and showed no evidence of disease but a visible CT density continued to in crease slightly over the previous CTs, though negative on PET uptak e, concerning for post SBRT change vs progression of PET negative neoplasm -Was last seen by Dr. Sanchez, eventually on 04/23/[address]-guided biopsy of this pos sible mass. The biopsy from 05/20/2019 showed focally infarcted tissue without granulomas or malignant cells. Chest CTA 10/30 showed new large loculated left h ilar mass with atelectasis in the lingula and left upper lobe, and a perihilar mass encasi ng the left pulmonary artery, measuring 6.8 x 4.9 x 6.6 cm in size. Also noted was enlargement of mediastinal n odes, the largest measuring approximately 5.7 x 3.4 cm. Assessment and Plan ? 79 year old male PMH of Right upper lobe non-small cell lung cancer (stage Ia) s/p SBRT (50 Gy in 5 fx) com pleted 03/29, who presented with SOB, found to have a large loculated left hilar mass with atelectasis in the lingula and left upper lobe, and encasing the left pulmonary artery, with possibl e postobstructive pneumonitis. ? # NSCLC # large lung mass Plan: MRI brain wo/w IV contrast NM pet whole body F/u pulm recs re EBUS ? # postobstructive pneumonia/pneumonitis # hypoxia CTA 10/30 w/ new large locula alejandrina left hilar mass with atelectasis in the lingula and left upper lobe, and a perihilar mass encasi ng the left pulmonary artery, measuring 6.8 x 4.9 x 6.6 cm in size. Enlargement of media stinal nodes, the largest measuring approximately 5.7 x 3.4 cm. Strep pneumo urine AG neg Covid-19 neg Plan: Continuous pulse oxymetry F/u RSV panel, Legionella Ag urine Continue Zosyn 3.75 q6h ? # COPD - duoneb PRN and scheduled q4h ? # ADHF Weight gain 2+ pedal edema NT pro BNP Plan: - TTE - Tele - Fluid restriction (<1.5 L), salt restriction (<2g) - Daily wgts - Strict I/Os - Suppl O2 to titrate O2>92%, CPAP/BiPAP if needed - Lasix 40 mg IV / gtt, monitor Cr, lytes - continue home ARB - reduce BB ? # thrombocytopenia Platelet Count (k/uL) Date Value 11/02/2019 36 (L) 11/01/2019 42 (L) 11/01/2019 42 (L) 10/31/2019 41 (L) 05/15/2019 249 01/13/2016 252 unclear precipitating factor Pathologist review: Normocytic Anemia With Moderate Polychro masia Thrombocytopenia Plan: CTM Consider heme consult hold AC ? # anemia Hemoglobin (g/dL) Date Value 11/02/2019 7.8 (L) 11/01/2019 7.3 (L) 11/01/2019 6.4 (L) s/p 1 unit pRBC transfusion 10/31, no overt sign of bleeding DIC labs unrevealing (elevated fibrinogen, d dimer but CT PE was negative) Iron studies unrevealing : Iron, TIBC WNL Plan: CTM Daily CBC Consider heme consult, bone marrow biopsy? ? ? Rounding Checklist: Diet/Nutrition: heart healthy Mobility status: mobile VTE Prophylaxis: deferred due to thrombocytopenia Pain management: tylenol Glycemic control: SSI Code Status: full Dispo Planning: pending 10/31/19 1215 vte pharmacologic prophylaxis contraindicated (ky,oh) 10/31/19 1215 pneumatic compression stockings (ky,oh) 10/31/19 1215 activity - mobilize patient (ky,wi) SIGNATURE: Skylar Seay MD PHD PGY-1 PATIENT NAME: Tiana medina DATE: 11/02/2019 TIME: 10:58 AM PAGER: [phone] Note: These recommendations are not final until staffed by max harris See my note from earlier today. Shaheen Rosenberg MD Previous Version Arlette Guillermo RN, RN 11/02/2019 6:50 PM Sign ed RN updated that patient resp iratory status remains the same with patient unable to lie flat. Ordering provid er aware and order for MRI remaining in place until patient can receive lasix and overnight monitori ng. Reassessment and MRI scan order to be reevaluated 11/03/2019 per floor RN. Clau Soriano RN, RN 11/03/2019 4:38 AM Addendum Nursing Progress Note Patient Name: Tiana Martínez Patient Location: [place] [id number] Daily Note: 0026 A Fib RVR HR 156. Pt sitting in joselyn ir. Denies chest pain. AMET activated. See AMET note. 0045 NSR HR 66. Will continue to monitor. 0256 A Fib rate controlled H R 86. MD Windy aware. No new orders at this time. Will continue to monitor. This note was completed by: Clau Soriano RN Previous Version Bryant Tan MD 11/03/2019 2:06 AM Signed MEDICAL EMERGENCY TEAM AMET CODE STATUS: Code Status: Not on file BACKGROUND 79 y/o M w/ hx of COPD, Lung Cancer, AFib, DM2, SCC, Thyroid cancer admitted for SOB now having rapid heart rate. REASON FOR CALL Cardiac: Heart rate <40 or >140 with new symptoms Any Heart Rate >150 ASSESSMENT Patient was sitting in chair upon arrival. Primary team wa s at bedside. EKG showed AFib w/ RVR. Primary team decided for 5mg IV Metoprol ol with some improvement of HR from 150s to 120s. An additional 5mg IV was given getting HR to 80-90s. Primary team to follow and increase P O dose of Metoprolol. Patient otherwise hemodynamically stable. INTERVENTIONS Monitoring Telemetry Monitoring IV Metoprolol DISPOSITIONS Improved Primary Team Notified: Yes PAST MEDICAL / SURGICAL HISTORY PAST MEDICAL HISTORY Diagnosis Date - Atrial fibrillation (HCC) - Basal 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 [id number] - COPD (chronic obstructive pulmonary disease) (HCC) - CVA (cerebral vascular accident) (HCC) 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 - Diverticulosis of colon (without mention of hemorrhage) - DM (diabetes mellitus) ([facility]) - Hemorrhage of gastrointestinal tract, unspecified - Hypercholesteremia - Lung cancer (HCC) - Sebaceous cyst knee - Sebaceous cyst arm pit - Sebaceous cyst back PAST SURGICAL HISTORY Procedure Laterality Date - COLONOSCOP W/ OR W/O BRSH SPEC 06/14/07 [facility] inpt AIRWAY HISTORY Not available Difficult Airway: Unknown PERTINENT PHYSICAL EXAM and INITIAL ASSESSMENT (For vital signs prior and during MET call, see nursing docu mentation) Pertinent Vital Signs at Time of MET Call: 11/02/19 2108 11/02/19 2247 11/02/19 2359 11/03/19 0048 BP: 153/66 152/73 139/79 Pulse: 77 74 79 Resp: 20 20 Temp: 37 ?C (98.6 ?F) 36.8 ?C (98.3 ?F) TempSrc: Oral Oral SpO2: 100% 98% 98% Appearance: Alert, No distress and Cooperative Airway Patent: Yes Breathing Evaluation: Normal Circulation Evaluation: Pulses Full, bounding and Irregualr Neurologic Evaluation: GCS Evaluation: 4. Spontaneous, 5: Oriented 6: Obeys Motor commands Is the Level of Consciousness at Baseline: Yes Peripheral 10/31/19 Admission to Hospital Short Right Antecu bital 20 Gauge (Active) Placement Date: 10/31/19 Line, Drain, Darya gomez Present on: Admission to Hospital Type of Peripheral Line: Short Location: Right Insertion Sit e: Antecubital Size: 20 Gauge PERTINENT DIAGNOSTICS Diagnostic Tests Reviewed: Most recent EKG: Arrythmia- AFib w/ RVR Primary Team Aware/Notified: Yes Critical Care Time: I personally spent 30 minutes directly s upervising and providing non-critical care to the patient as noted above.. I have reviewed, approved and signed the paper M ET note. Please refer to this for complete orders and nursing/respiratory documentation. SIGNATURE: Bryant Tan MD PATIENT NAME: Tiana Martínez DATE: November 03, 2019 TIME: 2:02 AM PAGER: [phone] Rei Vidal, Tech 11/03/2019 9:01 AM Signed RADIOLOGY SERVICE PROGRESS NOTE SERVICE DATE: 11/03/2019 SERVICE TIME: 9:00 AM PATIENT IDENTITY VERIFICATION COMPLETED USING TWO (2) AUDI LANCE IDENTIFIERS: Name and Date of confirmed by patient verbally FALL SCREENING: Has the patient had 2 falls in the last ye ar or 1 fall with injury or currently using an Ambulatory Assistive Device (Wa lker, Cane, Wheelchair, Crutches, etc.)? No PATIENT GENDER DATA: .male : No ALLERGIES: Reviewed and unchanged MEDICATIONS REVIEWED: No PATIENT RELEVANT IMPLANT DATA REVIEWED: Not Applicable CREATININE: Creatinine Date Value Ref Range Status 11/03/2019 1.26 (H) 0.73 - 1.22 mg/dL Final 11/02/2019 1.18 0.73 - 1.22 mg/dL Final 11/01/2019 1.40 (H) 0.73 - 1.22 mg/dL Final eGFR-All Other Races Date Value Ref Range Status 11/03/2019 55 . Final Comment: eGFR (Estimated GFR) Units of measure: mL/min/1.73 meters sq uared eGFR is derived from the reexpressed MDRD Study equati on using the following parameters: serum creatinine, age, gender and race. Th e creatinine assay has been calibrated to be traceable to IDMS. An eGFR <60 mL/min/1.73m2 for >3 months is consistent with c hronic kidney disease. Refer to KDOQI guidelines for clinical interpretati on. In patients with unstable renal function , e.g. those with acute kidney injury, the eGFR may not accurately reflect actual GFR. eGFR- Date Value Ref Range Status 11/03/2019 >60 Final P.O.C.T. RESULTS: N/A November 03, [address] PERFORMED: No IV SITE: Inpatient - refer to LDA documentation POST EXAM PIV STATUS: Inpatient see LDA documentation PROCEDURE TYPE: NM INJECT: PET/CT BODY SCAN. 11.8 mCi F18 FD G. No other medications given.. ADMINISTRATION TIME: 08:53 PATIENT DISCHARGED TO: Patient taken to IP transport area fo r return to RNF/ICU/ED. A Diagnostic radioactive pro cedure has taken place, with no further precautions necessary other than routine body substance precautions. Mor e information regarding radiation safety can be found using this link: [email or web address] SIGNATURE: Rei Vidal PATIENT NAME: Tiana castorena DATE: November 03, 2019 TIME: 9:00 AM PAGER/CONTACT #: Susan Sparrow MD 11/03/2019 5:14 PM Signed PULMONARY MEDICINE CONSULT Patient Name: Tiana Martínez REASON FOR CONSULT: History of NSCLC, new enlarging left hilar mass concern for recurrence and post obstructive pneumonia REQUESTING PHYSICIAN: Samir Ruff MD PRIMARY CARE PHYSICIAN: Kevon Harrell MD CHIEF COMPLAINT: Dyspnea HISTORY OF PRESENT ILLNESS: Tiana Martínez is a 79 year old male, with a hist ory of NSCLC (diagnosed 2015) treated with RT, COPD (empysema), pAF (on AC with apixaban ), T2DM, multiple surgeries for basal cell carcinoma nose, face an d posterior neck 2000 - 2014, and follicular thyroid cancer. Who prese nted to [facility] on 10/30 from an OSH due to dyspnea. Patient reports that several weeks ago he presented to [facility] emergency department and what day was diagnosed with a new hilar left upper lobe mass that had rapidly grown since his last imaging in [facility]. He started experiencing shortness of breath and chest pain, sharp, stabbing on the left side of his chest. He developed thicker white phlegm, difficult to exp ectorate, and was feeling short of breath. The patient did not previously require oxygen at home. Chest x-ray showed diffusely opacified left lung sugge stive of pneumonia and atelectasis, with possible postobstructive pneum onitis. A chest CTA showed no pulmonary embolism arterial dissection, but show ed a spiculated nodule in the right upper lobe measuring approximately 1.5 cm, with a large loculated left hilar mass with atelectasis in the lingula and left upper lobe, and a perihilar mass encasing the left pulmonary artery, measuring 6.8 x 4.9 x 6.6 cm in size. Also noted was enlargement of mediastinal nodes, the largest measuring approximately 5.7 x 3.4 cm. Labs were notable fo r lactic acid initially at 4, and then down trended to 2.7, platelets 51, WBC 10.6. He had no reported hypotension but required up to 2 L of oxygen. [facility] and Zithromax. At [facility] he was switched to zosyn 3.75 q6h, he was diuresed for ADHF, as he was unable to lie flat for MRI. An AMET was called for afib with RVR HR 156 overnight of 11/02 AMET called, given 5 mg IV metoprolol x2, Of note he has developed a new anemia and thrombocytopenia with concern for possible bone marrow infiltration. Past oncologic history: - Right upper lobe non-small cell lung cancer (stage Ia) (Pl eural-based irregularly margined nodule in the anterior right uppe r lobe measuring 1.4 x 0.7cm diagnosed 11/2015) s/p SBRT (50 Gy in 5 fx) completed 03/22/16 , seen by Dr. Bull in Thoracic Surgery, recommended less invasive approac h due to PFTs - CT guided FNA of the RUL nodule demonstrated adenocarcinom a on 02/01/16 - PET scan demonstrated thyroid nodule as well as mildly h ypermetabolic RUL known lung CA, no evidence of other sites of disease 02/07/16 . - EBUS guided mediastinal no beto sampling was negative for evidence of metastatic disease 02/07/16, RT with Dr. Sanchez -The patient continued to be monitored by CT, and showed no evidence of disease but a visible CT density continued to in crease slightly over the previous CTs, though negative on PET uptak e, concerning for post SBRT change vs progression of PET negative neoplasm -Was last seen by Dr. Sanchez, eventually on 04/23/20 [address]-guided biopsy of this pos sible mass. The biopsy from 05/20/2019 showed focally infarcted tissue without granulomas or malignant cells. PAST MEDICAL HISTORY Diagnosis Date - Atrial fibrillation (HCC) - Basal 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 [phone] - COPD (chronic obstructive pulmonary disease) (HCC) - CVA (cerebral vascular accident) (HCC) 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 - Diverticulosis of colon (without mention of hemorrhage) - DM (diabetes mellitus) (HCC) - Hemorrhage of gastrointestinal tract, unspecified - Hypercholesteremia - Lung cancer (HCC) - Sebaceous cyst knee - Sebaceous cyst arm pit - Sebaceous cyst back PAST SURGICAL HISTORY Procedure Laterality Date - COLONOSCOP W/ OR W/O BRSH SPEC 06/14/07 [facility] inpt FAMILY HISTORY Problem Relation Age of Onset - Emphysema Mother - Heart disease Mother - Hypertension Mother - Stroke Mother - Heart Father - Alcohol/Drug Father - Hypertension Father - Stroke Father - Breast Cancer Sister - None Sister Social History Tobacco Use - Smoking status: Current Every Day Smoker Packs/day: 0.50 Years: 50.00 Pack years: 25.00 Types: Cigarettes - Smokeless tobacco: Never Used Substance Use Topics - Alcohol use: No - Drug use: No ALLERGIES: ALLERGIES Allergen Reactions - Bees CURRENT MEDICATIONS: atorvastatin (LIPITOR) 40 mg tablet, Take 40 mg by mouth once daily., Disp: , Rfl: , 10/30/2019 at 0600 furosemide (LASIX) 40 mg tablet, Take 40 mg by m outh every 48 hours., Disp: , Rfl: , 10/30/2019 at 1300 ELIQUIS 5 mg tab(s), Take 5 mg by mouth twice daily., Disp: , Rfl: , 10/30/2019 at 0600 TOPROL XL 50 mg 24 hr tablet, Take 50 mg by mout h once daily., Disp: , Rfl: , 10/30/2019 at 0600 olmesartan (BENICAR) 5 mg ta blet, Take 5 mg by mouth once daily., Disp: , Rfl: , 10/30/2019 at 0600 rOPINIRole Hydrochloride 3 mg tablet, Take 3 mg by mouth d aily at bedtime., Disp: , Rfl: , 10/30/2019 at 2000 fluticasone/umeclidin/vilanter (TRELEGY ELLIPTA INHALATION), Inhale as instructed once daily., Disp: , Rfl: , Past Week at Unknown time Multivitamin capsule, Take 1 capsule by mouth once daily., D isp: , Rfl: , 10/30/2019 at 0600 albuterol HFA (PROAIR HFA) 90 mcg/actuation inhaler, Inhale 2 Puffs as instructed as needed., Disp: , Rfl: , 10/30/2019 at Unknown t roni aspirin(ADULT ASPIRIN EC LOW STRENGTH 81 MG TAB, DELAYED RELEASE), Take one(1) tablet daily., Disp: , Rfl: 0, 10/31/2019 at 0600 melatonin 3 mg tablet, Take 3 mg by mouth daily at bedtime ., Disp: , Rfl: , 10/30/2019 at 2000 latanoprost (XALATAN) 0.005 % ophthalmic solution, 1 D rop daily at bedtime., Disp: , Rfl: , 10/30/2019 at 2100 EPINEPHrine (EPIPEN 2-ANUEL) 0.3 mg/0.3 mL auto-injector, Inje ct 0.3 mg intramuscularly as needed., Disp: , Rfl: , Unknown at Unknow n time Current Facility-Administered Medications Medication Dose Route Frequency - NaCl 0.9% 3-5 mL 3-5 mL INTRAVENOUS q 12 H - ondansetron (PF) 4 mg injection (ZOFRAN) 4 mg INTRAVENOUS q 6 H PRN - metoclopramide HCl 10 mg tab(s) (REGLAN) 10 mg ORAL q 6 H PRN - polyethylene glycol 3350 17 g packet ( MIRALAX, GLYCOLAX) 17 g ORAL DAILY PRN - piperacillin-tazobactam iv piggyback 3 .375 g in dextrose (iso-osmotic) 50 mL (ZOSYN) 3.375 g INTRAVENOUS q 8 H - melatonin 3 mg tab(s) 3 mg ORAL AT BEDTIME - perflutren lipid microspheres 1.1 mg/mL 1.3 mL injec tion (DEFINITY) 1.3 mL INTRAVENOUS DIRECTED PRN - atorvastatin 40 mg tab(s) (LIPITOR) 40 mg ORAL AT BEDTIME - therapeutic multivitamin 1 tablet tab(s) (THERA VITAMIN) 1 tablet ORAL/FEEDING TUBE DAILY - rOPINIRole 3 mg tab(s) (REQUIP) 3 mg ORAL TID - salt and soda 5-10 mL oral liquid 5-10 mL ORAL q 6 H - acetylcysteine 200 mg/mL (20 %) 200 mg (MUCOMYST) 200 mg INHALATION q 8 H - guaiFENesin 600 mg ER tab(s) (MUCINEX) 600 mg ORAL q 12 H - latanoprost 0.005 % 1 Drop (XALATAN) 1 Drop BOTH EYES AT B EDTIME - metoprolol tartrate (short acting) 25 mg tab(s) (LOPRESSOR) 25 mg ORAL q 12 H - magnesium oxide 800 mg tab(s) (MAG-OX) 800 mg ORAL DAILY - albuterol 2.5 mg /3 mL (0.083 %) 2.5 mg (PROVE NTIL) 2.5 mg INHALATION q 4 H PRN - sodium chloride 7% solution 4 mL INHALATION ONLY 4 mL INHA LATION BID - clotrimazole 10 mg corinna (MYCELEX) 10 mg ORAL 5X/DAY REVIEW OF SYSTEMS GENERAL:No weight loss, malaise or fevers. HEENT:Negative for frequent or significa nt headaches, No changes in hearing or vision, no nose bleeds or other nasal problems NECK:Positive for goiter RESPIRATORY: Positive for dy spnea on exertion, productive cough (brown sputum), and shortness of breath CARDIOVASCULAR: Negative for chest pain GASTROINTESTINAL: Negative for abdominal discomf ort, blood in stools or black stools or change in bowel habits : No history of dysuria, frequency or incontinence MUSCULOSKELETAL: Negative for joint pain or swelling, back pain or muscle pain SKIN: Negative for lesions, rash, and itching. PSYCH: Negative for sleep disturbance, mood disorder a nd recent psychosocial stressors. HEMATOLOGIC/LYMPHOLOGY:Negative for prolonged bleeding, brui sing easily or swollen nodes. ENDOCRINE: Negative for cold or heat intolerance, polyuria o r polydipsia. NEURO: No history of headaches, syncope, paralysis, seizures or tremors The remainder of the ROS was negative. PHYSICAL EXAMINATION: VITAL SIGNS: BP 137/79 Pul se 71 Temp (Src) 97.7 (Oral) Resp 16 SpO2 99% O2 Therapy: Nasal Cannula, Liters: 2.00 General appearance: well appearing, alert and in no acute di stress Skin: skin color, texture, turgor normal, no rashes or lesio ns HEENT: Normocephalic, moist mucous membranes and eyes anicte nathan Heme/Lymph: Supple, no petechiae Respiratory: Coarse breath sounds bilaterally Cardiovascular: RRR without murmur, gallop, or rubs Gastrointestinal: Normal abd ominal exam, Abdomen soft, non-tender. Bowel sounds normal. No masses, organomegaly Musculoskeletal: +2 pitting lower extremity edema, cheyenne valdez ges in place Neuro: Gait normal. Reflexes normal and symmetric. Sen sation grossly intact. DATA: Diagnostic tests reviewed for today's visit, films/spe cimens were personally reviewed by me: Most recent labs and imaging results. LAST LAB RESULTS: Recent Labs 11/03/19 0115 11/02/19 2305 11/02/19 0544 11/01/19 0330 10/31/19 1357 WBC 10.08 10.56 9.84 < > 8.48 9.17 HB 7.8* 7.7* 7.8* < > 6.4* 7.2* HCT 26.6* 25.9* 26.0* < > 22.6* 25.4* PLT 33* 35* 36* < > 42* 41* INR 1.0 -- -- -- -- 1.0 APTT -- -- -- -- 26.2 -- NA 141 -- 143 -- 146* 146* K 3.0* -- 3.3* -- 3.4* 3.4* CHLOR 100 -- 103 -- 105 107* CO2 27 -- 24 -- 29 28 BUN 35* -- 38* -- 39* 41* CREAT 1.26* -- 1.18 -- 1.40* 1.18 GLUC 179* -- 144* -- 149* 145* CA 9.8 -- 9.5 -- 9.5 9.4 MG 2.5* -- -- -- -- -- P 3.6 -- -- -- -- -- < > = values in this interval not displayed. CHEST IMAGING: CT 12/24/2018 Spiculated right upper lobe subpleural nodule is mildly larg er and more consolidative in comparison to prior scans, and suspicious f or recurrence/growth. ?Notably, the nodule demonstrated residua l mild FDG avidity on a remote PET/CT from 01/15/2018 and previously se en groundglass components of the nodule are now replaced with s olid components. Interval resolution of diffuse centrilobular nodules and per ibronchial groundglass opacities compatible with resolved infection or aspiration. Stable 3 mm indeterminate left upper lobe nodule. ?New clust er of 2-4 mm centrilobular nodules in the RLL could be infectious/inflamm atory. ? Follow-up is suggested. ? CTA 10/31/2019 no pulmonary embolism arterial dis section. Spiculated nodule in the right upper lobe measuri ng approximately 1.5 cm, with a large loculated left hilar mass with atelectasis in the lingula and left upper lobe, and a perihilar mass encasing the left pulmonary artery, measuring 6.8 x 4.9 x 6.6 cm in size. Enlargement of mediastinal CXR 11/01 RESULT: Lines, tubes, and devices: ?None. Lungs and pleura: ?There is persistent left-sided volume los s including elevation of the left hemidiaphragm and leftward shift of th e heart and mediastinum. ?Ill-defined opacity overlying the left perihil ar region is consistent with left upper lobe collapse, likely due to a ob structing central neoplasm. ?A component of postobstructive pneumonia is not excluded. ?The small left pleural effusion seen on the recen t chest CT is not confidently visualized on this exam. ?A nodular density projecting over the right upper lobe appears stable. ?No pulmonary martín a. ?No substantial pneumothorax. Cardiomediastinal silhouette: ?Stable cardiomediastinal silh ouette. ? Leftward shift of the heart and mediastinum is unchanged. ?L eft hilar and mediastinal lymphadenopathy was better assessed on the recen t chest CT. Other: OTHER TESTING: PET NM 11/03/2019 IMPRESSION: 1. ?NECK: New hypermetabolic left supraclavicular adenopathy . ? Hypermetabolic left lower thyroid nodule, stable. 2. ?CHEST: Interval development of centrally obstructing hyp ermetabolic pulmonary mass in the left upper lobe. ?New hypermetabolic m ediastinal and left pulmonary hilar lymphadenopathy. ?Mildly FDG avid r ight upper lobe pulmonary nodule, stable. 3. ?ABDOMEN/PELVIS: Hypermetabolic hepatic metastases. ?No h ypermetabolic mass, adenopathy, or fluid collection. ?4. ?EXTREMITIES/SKELETON: ?Findings 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 ASSESSMENT AND PLAN: Mr. Martínez is an 79 year old gentleman with a me dical history significant for right upper lobe non-small c ell lung cancer (stage Ia) s/p SBRT (50 Gy in 5 fx) completed 03/29, who presented with SOB, found t o have a large loculated left hilar mass with atelectasis in the lingula and left up per lobe, encasing the left pulmonary artery, with possible postobstructive pneumonitis, and new anemia suggestive of bone marrow infiltration. Collectively these f indings are concerning for a new malignancy vs recurrence of previous ma lignancy. 1. Induced sputum send for gram stain and culture (ask RT fo r assistance) 2. Case discussed with bronchoscopy, bronchoscopy tomorrow ( 11/03), NPO at midnight 3. Platelet goal >50 for bronchoscopy, 2 units p latelets tonight, recheck CBC tomorrow morning, extra unit of platelets on standby peripro cedural 3. Continue zosyn 4. Continue BPH bid 5. Duoneb changed to albuterol nebulizer, avoid anticholinergics as they will increase mucus production Written and verbal health teaching given to patient, patient verbalizes understanding and agrees with treatment plan. Electronically Signed: Alexandria Dubois MD Internal Medicine Resident PGY-1 November 03, 2019 9:20 AM Case discussed with fellow. Plan not finalized until signed by staff. TEACHING PHYSICIAN NOTE OF PERSONAL INVOLVEMENT IN CARE I have personally interviewed and examined Tiana Martínez. I have personally interviewed and examined the patient. I have personally verified elements of the exam listed above . I have personally reviewed the radiographic and diagnostic data, problem list and made changes as needed. IMPRESSION/PLAN 79 year old male, with a his tory of NSCLC adenocarcinoma RUL Stage 1a diagnosed 2016 treated with SBRT, COPD , paroxysmal AF (on apixaban), diabetes, basal cell carcinoma follicular thyroid cancer. RUL biopsied Apr 2019 due to concern of malignancy with biopsy consistent with infarcted tissues (no evidence of malignancy). The patient now presents with progressive dyspn ea and sputum production and rapidly progressive picture of le ft hilar mass (6.8x4.9x6.6cm) with atelectasis of NORY and lingula encasing the pulmonary artery and also with thrombocytopenia (platelets=33K today). On exam, SaO2=99% on 2LO2NC and lung exam with reduced breat h sounds PET scan performed today consistent with uptake in the lef t supraclavicular node, NORY mass with conglomerate adenopathy and uptake in th e liver. Left pleural effusion with less uptake. We reviewed plan with the patient and his son. Plan for bronchoscopy with EBUS tomorrow- keep NPO after mid night. Platelet transfusion--goal f or >50K with platelets transfusing during procedure. Hold anticoagulation. Continue Albuterol nebulizer treatments q 4 hours and would add hypertonic saline nebulized treatments to assist with mucociliary clear ance. Susan Sparrow MD MS Pulmonary, Critical Care and Sleep Medicine Previous Version Jamarcus Granado PT 11/03/2019 10:09 AM Signed PHYSICAL THERAPY MISSED VISIT SERVICE DATE: 11/03/2019 SERVICE TIME: 1006 to 1006 ROOM: [place] [id number] ([address] Medicine) Attempted Evaluation. Patient not seen due to Test/Procedure . Pt with AMET overnight, now off floor. PT to follow up as able / appropri ate. SIGNATURE: Jamarcus Granado PT PATIENT NAME: Tiana Martínez DATE: November 03, 2019 TIME: 10:09 AM Skylar Seay MD, MD 11/03/2019 10:42 AM Addendum Solid Tumor Oncology 1 Progress Note Progress Note PATIENT NAME: Tiana Martínez PRIMARY SERVICE: STO1 ADMISSION DAY 10/31/2019 HOSPITAL DAY: 3 CODE STATUS: Full Plan for Today (11/02/2019) - hold diuresis given CARO an d no improvement in respiratory status with diuresis - monitor weights, I/O - NPO for bronch, EBUS - sputum cytology and cultures - consult radiation oncology after EBUS - monitor h/h BID - continue scheduled duonebs - continue zosyn - continue metoprolol, uptitrated to 25 mg tartrate BID for rate control - f/u NM PET whole body, MRI brain today Interval Events - AMET called for afib with RVR HR 156 overnight, self converted to NSR after 5 mg metoprolol IV x2, - Hgb responded appropriately to 1 unit pRBC, Hemoglobin (g/dL) Date Value 11/03/2019 7.8 (L) 11/02/2019 7.7 (L) 11/02/2019 7.8 (L) - platelets continue to downtrend Platelet Count (k/uL) Date Value 11/03/2019 33 (L) 11/02/2019 35 (L) 11/02/2019 36 (L) 11/01/2019 42 (L) 11/01/2019 42 (L) 10/31/2019 41 (L) 05/15/2019 249 - was unable to lay flat for his MRI due to worsening SOB - 24 hour Vitals: Vital Signs (last filed) Range in last 24h Temp: 36.5 ?C (97.7 ?F) (11/03/19547) Temp Min: 36.5 ?C (97.7 ?F) Max: 37 ?C (98.6 ?F) Pulse: 71 (11/03/19547) Pulse Min: 71 Max: 101 BP: 137/79 (11/03/1948) BP Min: 133/62 Max: 153/66 Resp: 16 (11/03/19547) Resp Min: 16 Max: 20 SpO2: 99 % (11/03/19547) SpO2 Min: 98 % Max: 100 % Physical Exam BP 137/79 Pulse 71 Temp 36.5 ?C (97.7 ?F) (Oral) Resp 16 SpO2 99% General appearance: in NAD, speaking in full coherent sentences, nondiaphoretic, cooperative with appropriate affect HEENT: anicteric sclera, EOMI, MMM. Non-cyanotic lips. Ton linn and posterior oropharynx normal. Teeth normal. Respiratory: Diminished breath sounds in NORY, LIL, LLL, Diff use expiratory wheezes. Diaphragmatic excursion and chest wall symmetry myriam ear equal and normal. No accessory muscle use. On 2L O2. Cardiovascular: RRR without gallop, or rubs or murmur. Non-displaced PMI. No parasternal heave. No carotid, abdominal aortic, femoral bruits noted. Normal pedal pulses bilaterally. 2+ peripheral edema noted in the u pper or lower extremities. Normal temperature of all 4 extremities. Abdomen/GI: Abdomen soft, non-tender, no n-distended. No masses or organomegaly noted. No hepatojugular reflux, no ascites Extremities: No clubbing or cyanosis of fingers. No cracking , pitting or petechiae on fingers. Capillary refill <2 sec bilaterally. Musculoskeletal: Spine shows no kyphosis or scoliosis. Muscles show no clear abnormality. Skin:No petechiae, ecchymoses, rash note d. No jaundice, no palmar erythema, no spider angiomas. Neurologic: AOx3, able to vocalize, moves all extremities,?n o asterixis Psychiatric: no abnormalities with mood with congruent affec t Fluid Balance Intake/Output Summary (Last 24 hours) at 11/03/2019 1031 Last data filed at 11/03/2019 0722 Gross per 24 hour Intake 1120 ml Output 2800 ml Net -1680 ml Last Admit Weight change: Historical weights (outpatient/ED visits) Last 8 Encounter Wt Readings: Date: Wt: 06/11/2019 90.7 kg (200 lb) 04/24/2019 88.5 kg (195 lb) 12/31/2018 83.2 kg (183 lb 8 oz) 05/02/2018 83.5 kg (184 lb) 12/21/2017 85.3 kg (188 lb) 12/21/2017 85.3 kg (188 lb) 12/01/2016 86.6 kg (191 lb) 11/20/2016 87.1 kg (192 lb) Intake/Output 10/31/19 0700 - 11/01/19 0659 11/01/19 0700 - 11/02/19 065 9 11/02/19 0700 - 11/03/19 0659 11/03/19 0700 - 11/04/19 0659 Intake (ml) 50 850 1360 ? Output (ml) 994 325 8567 200 Net (ml) -902 300 -1440 -200 Labs CBC: Recent Labs 11/03/19 0115 11/02/19 2305 11/02/19 0544 11/01/19 2142 11/01/19 0330 10/31/19 1357 WBC 10.08 10.56 9.84 9.13 8.48 9.17 HB 7.8* 7.7* 7.8* 7.3* 6.4* 7.2* HCT 26.6* 25.9* 26.0* 24.4* 22.6* 25.4* PLT 33* 35* 36* 42* 42* 41* MCV 80.9 80.9 80.0 81.1 81.6 80.9 RDWCV 29.0* 28.9* 28.9* 29.2* 29.2* 29.2* NEUTP -- -- -- -- 70.0 73.0 ABSNEUT -- -- -- -- 5.94 6.69 LYMPHP -- -- -- -- 22.0 19.0 MONOP -- -- -- -- 5.0 4.0 EODINP -- -- -- -- 0.0 1.0 COAG: Recent Labs 11/03/19 0115 11/01/19 0330 10/31/19 1357 APTT -- 26.2 -- INR 1.0 -- 1.0 BMP: Recent Labs 11/03/19 0115 11/02/19 0544 11/01/19 0330 10/31/19 1357 10/31/19 1343 GLUC 179* 144* 149* 145* -- NA 141 143 146* 146* -- K 3.0* 3.3* 3.4* 3.4* -- CHLOR 100 103 105 107* -- CO2 27 24 29 28 31* ANION 14 16 12 11 -- BUN 35* 38* 39* 41* -- CREAT 1.26* 1.18 1.40* 1.18 -- CHEM: Recent Labs 11/03/19 0115 11/02/19 0544 11/01/19 0330 10/31/19 1357 ALB -- -- -- 3.0* TPROT -- -- -- 5.5* CA 9.8 9.5 9.5 9.4 MG 2.5* -- -- -- HEPATIC: Recent Labs 10/31/19 1357 ALKPHOS 108 ALT 56* AST 141* TBILI 0.4 Medications Scheduled metoprolol tartrate (short acting), 25 mg, q 12 H potassium chloride ER, 40 mEq, q 4 H magnesium oxide, 800 mg, DAILY salt and soda, 5-10 mL, q 6 H ipratropium-albuterol, 3 mL, q 4 H while awake acetylcysteine, 200 mg, q 8 H guaiFENesin, 600 mg, q 12 H latanoprost, 1 Drop, AT BEDTIME atorvastatin, 40 mg, AT BEDTIME therapeutic multivitamin, 1 tablet, DAILY rOPINIRole, 3 mg, TID NaCl 0.9%, 3-5 mL, q 12 H piperacillin-tazobactam, 3.375 g, q 8 H melatonin, 3 mg, AT BEDTIME PRN ipratropium-albuterol, 3 mL, q 4 H PRN ondansetron (PF), 4 mg, q 6 H PRN metoclopramide HCl, 10 mg, q 6 H PRN polyethylene glycol 3350, 17 g, DAILY PRN perflutren lipid microspheres, 1.3 mL, DIRECTED PRN Infusion Medications: Micro BCx 10/[address] 12/24/2018 Spiculated right upper lobe subpleural nodule is mildly larg er and more consolidative in comparison to prior scans, and suspicious f or recurrence/growth. ?Notably, the nodule demonstrated residua l mild FDG avidity on a remote PET/CT from 01/15/2018 and previously se en groundglass components of the nodule are now replaced with s olid components. Interval resolution of diffuse centrilobular nodules and per ibronchial groundglass opacities compatible with resolved infection or aspiration. Stable 3 mm indeterminate left upper lobe nodule. ?New clust er of 2-4 mm centrilobular nodules in the RLL could be infectious/inflamm atory. ? Follow-up is suggested. ? CTA 10/31/2019 no pulmonary embolism arterial dis section. Spiculated nodule in the right upper lobe measuri ng approximately 1.5 cm, with a large loculated left hilar mass with atelectasis in the lingula and left upper lobe, and a perihilar mass encasing the left pulmonary artery, measuring 6.8 x 4.9 x 6.6 cm in size. Enlargement of mediastinal n odes, the largest measuring approximately 5.7 x 3.4 cm. Oncologic History - Right upper lobe non-small cell lung cancer (s tage Ia) s/p SBRT (50 Gy in 5 fx) completed 03/22/16 -The patient continued to be monitored by CT, and showed no evidence of disease but a visible CT density continued to in crease slightly over the previous CTs, though negative on PET uptak e, concerning for post SBRT change vs progression of PET negative neoplasm -Was last seen by Dr. Sanchez, eventually on 04/23/[address]-guided biopsy of this pos sible mass. The biopsy from 05/20/2019 showed focally infarcted tissue without granulomas or malignant cells. Chest CTA 10/30 showed new large loculated left h ilar mass with atelectasis in the lingula and left upper lobe, and a perihilar mass encasi ng the left pulmonary artery, measuring 6.8 x 4.9 x 6.6 cm in size. Also noted was enlargement of mediastinal n odes, the largest measuring approximately 5.7 x 3.4 cm. Assessment and Plan ? 79 year old male PMH of Right upper lobe non-small cell lung cancer (stage Ia) s/p SBRT (50 Gy in 5 fx) com pleted 03/29, who presented with SOB, found to have a large loculated left hilar mass with atelectasis in the lingula and left upper lobe, and encasing the left pulmonary artery, with possibl e postobstructive pneumonitis. ? # NSCLC # large lung mass Plan: MRI brain wo/w IV contrast NM pet whole body F/u pulm recs re EBUS ? # postobstructive pneumonia/pneumonitis # hypoxia CTA 10/30 w/ new large locula alejandrina left hilar mass with atelectasis in the lingula and left upper lobe, and a perihilar mass encasi ng the left pulmonary artery, measuring 6.8 x 4.9 x 6.6 cm in size. Enlargement of media stinal nodes, the largest measuring approximately 5.7 x 3.4 cm. Strep pneumo urine AG neg Covid-19 neg Plan: Continuous pulse oxymetry F/u RSV panel, Legionella Ag urine Continue Zosyn 3.75 q6h ? # COPD - duoneb PRN and scheduled q4h ? # ADHF Weight gain 2+ pedal edema NT pro BNP 800s Plan: - TTE - Tele - Fluid restriction (<1.5 L), salt restriction (<2g) - Daily wgts - Strict I/Os - Suppl O2 to titrate O2>92%, CPAP/BiPAP if needed - continue home ARB - continue BB ? # thrombocytopenia Platelet Count (k/uL) Date Value 11/03/2019 33 (L) 11/02/2019 35 (L) 11/02/2019 36 (L) 11/01/2019 42 (L) 11/01/2019 42 (L) 10/31/2019 41 (L) 05/15/2019 249 unclear precipitating factor Pathologist review: Normocytic Anemia With Moderate Polychro masia Thrombocytopenia Plan: CTM Consider heme consult hold AC ? # anemia Hemoglobin (g/dL) Date Value 11/03/2019 7.8 (L) 11/02/2019 7.7 (L) 11/02/2019 7.8 (L) s/p 1 unit pRBC transfusion 10/31, no overt sign of bleeding DIC labs unrevealing (elevated fibrinogen, d dimer but CT PE was negative) Iron studies unrevealing : Iron, TIBC WNL Plan: CTM Daily CBC Consider heme consult, bone marrow biopsy? ? ? # CARO 2/2 aggressive diuresis due to orthopnea, PND Plan: Strict I/O Hold diuresis # pAfib AMET called for afib with RVR HR 156 ove rnight of 11/02 AMET called, given 5 mg IV metoprolol x2, spontaneously converted to NSR Currently on 25 mg metoprolol tartrate BID Home: metoprolol succinate, apixiban 5 mg BID Plan: Continue rate control with metop tartrate, uptitrate as neee ded Hold AC due to thrombocytopenia Rounding Checklist: Diet/Nutrition: heart healthy Mobility status: mobile VTE Prophylaxis: deferred due to thrombocytopenia Pain management: tylenol Glycemic control: SSI Code Status: full Dispo Planning: pending 10/31/19 1215 vte pharmacologic prophylaxis contraindicated ([place], [place]) 10/31/19 1215 pneumatic compression stockings ([place]) 10/31/19 1215 activity - mobilize patient ([place], [place]) SIGNATURE: Skylar Seay MD PHD PGY-1 PATIENT NAME: Tiana medina DATE: 11/03/2019 TIME: 7:58 AM PAGER: [phone] Note: These recommendations are not final until staffed by max harris Previous Version Levy May MD 11/03/2019 1:22 PM Signed Point of Contact Update Family update was conducted with son, Mr. Martínez, at the bedside today given his presence in person in the hospital. Discussed briefly the re sults of the recently completed whole bod y PET scan inclusive of imaging findings consistent with diffuse osseous metastatic disease as well as liver inv olvement. Plan moving forward remains to fo llow up Pulmonary recommendations, pleural effusion assessment by ultrasonography, as well a s consultation to Radiology colleagues regarding potential biopsy of supraclavicular lymph node for definitive diagnosis. No further questions at this time. MD Saud Rob, RN, RN 11/03/2019 2:50 PM Signed CARE MANAGEMENT: ASSESSMENT AND DISCHARGE PLAN SERVICE DATE: November 03, 2019 SERVICE TIME: 2:45 PM PRIMARY CARE PHYSICIAN: Kevon Harrell MD ADMISSION STATUS: Inpatient Needs Prior to Discharge: Ready for Discharge MEDICAL: MEDICARE A AND B Patient/Rpg Developer State d Goals: To have reduction in symptoms;To improve my functional status Health Insurance: Medicare Health Issues Impacting Discharge Plan: None Last Discharge Date: 05/20/19 Is this Within the Past 30 days? Last discharge within 30 days: Yes Is this a planned readmission?: No Unplanned Reason: Recurring symptoms of underlying disease Followed Up with Appointment Prior to Admission: Appointment completed Advance Directive: Current Advance Directive: Health Care Power of Turbine Inspector In Chart: No Advisor Advocate Angel Co Founder Attempted to Assist with AD Completion: Yes Action: Other: See Comment(Son states he is POA for both [facility] care and finances) Health LiteracyHow often do you need to have someone help you when you read instructions, pamphlets, or other written material from your doctor or pharmacy? : 2 - Rarely How confident are you filling out medical forms by yourself?: 2 - Quite a bit Baseline Mental Status Prior to this Illness what w as the patient's Baseline Mental Status?: Alert AND Oriented Prior to this illness, has anyone described the patient havi ng any of the following behaviors?: Not Applicable Functional Status: Independent Does Patient Currently Receive Any Community Services or [facility] Care?: None Equipment Prior to Admission: None SOCIAL: Living Arrangements: Home Lives With: Alone Financial Resources: RetiredPrimary Contact: Extended Emerge ncy Contact Information Primary Emergency Contact: Tanya CaponeTiana Mobile Relation: Son Supportive Patient Contact:: Yes Contact Resources: Family Family Name/Phone: Tiana [phone] (M) Social Needs Food insecurity Worry: Not on file Inability: Not on file Resources Needed: No Social Needs Financial resource strain: Not on file Social Needs Transportation needs Medical: Not on file Non-medical: Not on file Caregiver AssessmentCaregiver is ready, willing and able to meet the patient's needs as recommended by the inter-professional team:: Yes Does the patient have an acu te stroke diagnosis, or has the patient had a stroke during this admission?: No Patient's transition needs and plan for meeting these needs: To Be Determined Patient's perception of need for this admission: SOB, cough Medication Adherance I am convinced of the importance of my prescription medicati on: 0 - Agree Completely I worry that my prescription medication will do more harm than good to me : 0 - Disagree Mostly I feel financially burdened by my [id number] expens es for my prescription medication:: 0 - Disagree Mostly Risk Score: 0 Patient is categorized as: Low risk < 2 Are you interested in bedside delivery of your medications? Yes Is Patient Psychosocially Complex?: No ASSESSMENT AND PLAN: Medical Needs: Medical Needs: Cancer - active treatment/follow up Psychosocial Needs: Psychosocial Needs: None FREEDOM OF CHOICE EXPLAINED: POTENTIAL TRANSITION PLANS To Be Determined CM talked with patient's son and POA (no t on file) Tiana Martínez at [phone] (M) to introduce myself and to explain my role a s a Advisor Advocate Angel Co Founder. Patient had been independent with no home care servi dhiraj or DME. He was driving his car two weeks ago. He lives alone. He was not us ing home oxygen, in the hospital he is requiring 2-3 liters. Son states he has been in touch with [facility] last week. It is close to his fathers home. CM will follow f or dispo plan. SIGNATURE: Saud Pop RN PATIENT NAME: Tiana Martínez DATE: November 03, 2019 TIME: 2:45 PM PAGER/CONTACT #: [phone] Trina Blount RN, RN 11/03/2019 5:11 PM Signed This RN instructed Katie Jordan N on pt having bronch tomorrow 11/04/2019. Pt not on blood thinner. Verbalized understanding of said instructions . Clau Soriano RN, RN 11/04/2019 2:17 AM Signed Nursing Progress Note Patient Name: Tiana Martínez Patient Location: [place] [id number] Daily Note: 2100 2 units platelets administered per order. No s/sx transfusion reaction. This note was completed by: Clau Soriano, RN Matthew Puri MD 11/04/2019 8:28 PM Addendum Solid Tumor Oncology 1 Progress Note Progress Note PATIENT NAME: Tiana Martínez PRIMARY SERVICE: STO1 ADMISSION DAY 10/31/2019 HOSPITAL DAY: 4 CODE STATUS: Full Plan for Today (11/02/2019) - hold diuresis given CARO an d no improvement in respiratory status with diuresis - monitor weights, I/O - NPO for bronch, EBUS - f/u radiology re biopsy of supraclavicular LN - f/u sputum cytology and cultures - consult radiation oncology after EBUS prelim ( to preserve tissue diagnosis) - continue scheduled duonebs - continue zosyn - continue metoprolol, uptitrated to 25 mg tartrate BID for rate control - f/u MRI brain today Interval Events NAEO, VSS Vital Signs (last filed) Range in last 24h Temp: 36.6 ?C (97.9 ?F) (11/04/19537) Temp Min : 36.3 ?C (97.4 ?F) Max: 36.8 ?C (98.2 ?F) Pulse: 80 (11/04/19537) Pulse Min: 72 Max: 90 BP: 153/69 (11/04/19537) BP Min: 143/78 Max: 165/63 Resp: 20 (11/04/19537) Resp Min: 16 Max: 20 SpO2: 98 % (11/04/19537) SpO2 Min: 94 % Max: 100 % O2 Therapy: Nasal Cannula (11/04/19537) Liters: 2.00 (11/04/19537) - whole body PET scan inclusive of imaging findings consis tent with diffuse osseous metastatic disease as well as liver involvement. - pleural effusion not tappable per pleurocentesis team - Hgb stable Hemoglobin (g/dL) Date Value 11/04/2019 7.5 (L) 11/03/2019 7.7 (L) 11/03/2019 7.8 (L) - Platelets improved after tx Platelet Count (k/uL) Date Value 11/04/2019 99 (L) 11/03/2019 31 (L) 11/03/2019 33 (L) 11/02/2019 35 (L) 11/02/2019 36 (L) 11/01/2019 42 (L) 11/01/2019 42 (L) - WBC elevated this AM WBC (k/uL) Date Value 11/04/2019 11.16 (H) 11/03/2019 9.85 11/03/2019 10.08 Physical Exam BP 153/69 Pulse 80 Temp 36.6 ?C (97.9 ?F) (Oral) Resp 20 SpO2 98% General appearance: in NAD, speaking in full coherent sentences, nondiaphoretic, cooperative with appropriate affect HEENT: anicteric sclera, EOMI, MMM. Non-cyanotic lips. Ton linn and posterior oropharynx normal. Teeth normal. Respiratory: Diminished breath sounds in NORY, LIL, LLL, Diff use expiratory wheezes. Diaphragmatic excursion and chest wall symmetry myriam ear equal and normal. No accessory muscle use. On 2L O2. Cardiovascular: RRR without gallop, or rubs or murmur. Non-displaced PMI. No parasternal heave. No carotid, abdominal aortic, femoral bruits noted. Normal pedal pulses bilaterally. 2+ peripheral edema noted in the u pper or lower extremities. Normal temperature of all 4 extremities. Abdomen/GI: Abdomen soft, non-tender, no n-distended. No masses or organomegaly noted. No hepatojugular reflux, no ascites Extremities: No clubbing or cyanosis of fingers. No cracking , pitting or petechiae on fingers. Capillary refill <2 sec bilaterally. Musculoskeletal: Spine shows no kyphosis or scoliosis. Muscles show no clear abnormality. Skin:No petechiae, ecchymoses, rash note d. No jaundice, no palmar erythema, no spider angiomas. Neurologic: AOx3, able to vocalize, moves all extremities,?n o asterixis Psychiatric: no abnormalities with mood with congruent affec t Fluid Balance Intake/Output Summary (Last 24 hours) at 11/04/2019 0852 Last data filed at 11/04/2019 0700 Gross per 24 hour Intake 1668 ml Output 1300 ml Net 368 ml Last Admit Weight change: Historical weights (outpatient/ED visits) Last 8 Encounter Wt Readings: Date: Wt: 06/11/2019 90.7 kg (200 lb) 04/24/2019 88.5 kg (195 lb) 12/31/2018 83.2 kg (183 lb 8 oz) 05/02/2018 83.5 kg (184 lb) 12/21/2017 85.3 kg (188 lb) 12/21/2017 85.3 kg (188 lb) 12/01/2016 86.6 kg (191 lb) 11/20/2016 87.1 kg (192 lb) Intake/Output 10/31/19 0700 - 11/01/19 0659 11/01/19 0700 - 11/02/19 065 9 11/02/19 0700 - 11/03/19 0659 11/03/19 0700 - 11/04/19 0659 11/04/19 0700 - 11/05/19 0659 Intake (ml) 50 850 1360 1668 ? Output (ml) 297 369 8430 1275 225 Net (ml) -902 300 -1440 393 -225 Labs CBC: Recent Labs 11/04/19 0615 11/03/19 2038 11/03/19 0115 11/02/19 2305 11/02/19 0544 11/01/19 2142 11/01/19 0330 10/31/19 1357 WBC 11.16* 9.85 10.08 10.56 9.84 9.13 8.48 9.17 HB 7.5* 7.7* 7.8* 7.7* 7.8* 7.3* 6.4* 7.2* HCT 26.0* 25.8* 26.6* 25.9* 26.0* 24.4* 22.6* 25.4* PLT 99* 31* 33* 35* 36* 42* 42* 41* MCV 83.3 80.6 80.9 80.9 80.0 81.1 81.6 80.9 RDWCV 29.7* 29.3* 29.0* 28.9* 28.9* 29.2* 29.2* 29.2* NEUTP -- -- -- -- -- -- 70.0 73.0 ABSNEUT -- -- -- -- -- -- 5.94 6.69 LYMPHP -- -- -- -- -- -- 22.0 19.0 MONOP -- -- -- -- -- -- 5.0 4.0 EODINP -- -- -- -- -- -- 0.0 1.0 COAG: Recent Labs 11/04/19 0615 11/03/19 0115 11/01/19 0330 10/31/19 1357 APTT -- -- 26.2 -- INR 1.0 1.0 -- 1.0 BMP: Recent Labs 11/03/19 1252 11/03/19 0115 11/02/19 0544 11/01/19 0330 10/31/19 1357 10/31/19 1343 GLUC 142* 179* 144* 149* 145* -- NA 146* 141 143 146* 146* -- K 3.2* 3.0* 3.3* 3.4* 3.4* -- CHLOR 102 100 103 105 107* -- CO2 29 27 24 29 28 31* ANION 15 14 16 12 11 -- BUN 34* 35* 38* 39* 41* -- CREAT 1.17 1.26* 1.18 1.40* 1.18 -- CHEM: Recent Labs 11/03/19 1252 11/03/19 0115 11/02/19 0544 11/01/19 0330 10/31/19 1357 ALB -- -- -- -- 3.0* TPROT -- -- -- -- 5.5* CA 9.7 9.8 9.5 9.5 9.4 MG -- 2.5* -- -- -- HEPATIC: Recent Labs 10/31/19 1357 ALKPHOS 108 ALT 56* AST 141* TBILI 0.4 Medications Scheduled metoprolol tartrate (short acting), 25 mg, q 12 H magnesium oxide, 800 mg, DAILY sodium chloride 7% solution, 4 mL, BID clotrimazole, 10 mg, 5X/DAY salt and soda, 5-10 mL, q 6 H acetylcysteine, 200 mg, q 8 H guaiFENesin, 600 mg, q 12 H latanoprost, 1 Drop, AT BEDTIME atorvastatin, 40 mg, AT BEDTIME therapeutic multivitamin, 1 tablet, DAILY rOPINIRole, 3 mg, TID NaCl 0.9%, 3-5 mL, q 12 H piperacillin-tazobactam, 3.375 g, q 8 H melatonin, 3 mg, AT BEDTIME PRN albuterol, 2.5 mg, q 4 H PRN ondansetron (PF), 4 mg, q 6 H PRN metoclopramide HCl, 10 mg, q 6 H PRN polyethylene glycol 3350, 17 g, DAILY PRN perflutren lipid microspheres, 1.3 mL, DIRECTED PRN Infusion Medications: Micro BCx 10/[address] 12/24/2018 Spiculated right upper lobe subpleural nodule is mildly larg er and more consolidative in comparison to prior scans, and suspicious f or recurrence/growth. ?Notably, the nodule demonstrated residua l mild FDG avidity on a remote PET/CT from 01/15/2018 and previously se en groundglass components of the nodule are now replaced with s olid components. Interval resolution of diffuse centrilobular nodules and per ibronchial groundglass opacities compatible with resolved infection or aspiration. Stable 3 mm indeterminate left upper lobe nodule. ?New clust er of 2-4 mm centrilobular nodules in the RLL could be infectious/inflamm atory. ? Follow-up is suggested. ? CTA 10/31/2019 no pulmonary embolism arterial dis section. Spiculated nodule in the right upper lobe measuri ng approximately 1.5 cm, with a large loculated left hilar mass with atelectasis in the lingula and left upper lobe, and a perihilar mass encasing the left pulmonary artery, measuring 6.8 x 4.9 x 6.6 cm in size. Enlargement of mediastinal n odes, the largest measuring approximately 5.7 x 3.4 cm. Oncologic History - Right upper lobe non-small cell lung cancer (s tage Ia) s/p SBRT (50 Gy in 5 fx) completed 03/22/16 -The patient continued to be monitored by CT, and showed no evidence of disease but a visible CT density continued to in crease slightly over the previous CTs, though negative on PET uptak e, concerning for post SBRT change vs progression of PET negative neoplasm -Was last seen by Dr. Sanchez, eventually on 04/23/[address]-guided biopsy of this pos sible mass. The biopsy from 05/20/2019 showed focally infarcted tissue without granulomas or malignant cells. Chest CTA 10/30 showed new large loculated left h ilar mass with atelectasis in the lingula and left upper lobe, and a perihilar mass encasi ng the left pulmonary artery, measuring 6.8 x 4.9 x 6.6 cm in size. Also noted was enlargement of mediastinal n odes, the largest measuring approximately 5.7 x 3.4 cm. Assessment and Plan ? 79 year old male PMH of Right upper lobe non-small cell lung cancer (stage Ia) s/p SBRT (50 Gy in 5 fx) com pleted 03/29, who presented with SOB, found to have a large loculated left hilar mass with atelectasis in the lingula and left upper lobe, and encasing the left pulmonary artery, with possibl e postobstructive pneumonitis. ? # NSCLC # large lung mass Plan: MRI brain wo/w IV contrast NM pet whole body F/u pulm recs re EBUS ? # postobstructive pneumonia/pneumonitis # hypoxia CTA 10/30 w/ new large locula alejandrina left hilar mass with atelectasis in the lingula and left upper lobe, and a perihilar mass encasi ng the left pulmonary artery, measuring 6.8 x 4.9 x 6.6 cm in size. Enlargement of media stinal nodes, the largest measuring approximately 5.7 x 3.4 cm. Strep pneumo urine AG neg Covid-19 neg Plan: Continuous pulse oxymetry F/u RSV panel, Legionella Ag urine Continue Zosyn 3.75 q6h ? # COPD - duoneb PRN and scheduled q4h ? # ADHF Weight gain 2+ pedal edema NT pro BNP 800s Plan: - TTE - Tele - Fluid restriction (<1.5 L), salt restriction (<2g) - Daily wgts - Strict I/Os - Suppl O2 to titrate O2>92%, CPAP/BiPAP if needed - continue home ARB - continue BB ? # thrombocytopenia Platelet Count (k/uL) Date Value 11/04/2019 99 (L) 11/03/2019 31 (L) 11/03/2019 33 (L) 11/02/2019 35 (L) 11/02/2019 36 (L) 11/01/2019 42 (L) 11/01/2019 42 (L) unclear precipitating factor Pathologist review: Normocytic Anemia With Moderate Polychro masia Thrombocytopenia Plan: CTM Consider heme consult hold AC ? # anemia Hemoglobin (g/dL) Date Value 11/04/2019 7.5 (L) 11/03/2019 7.7 (L) 11/03/2019 7.8 (L) s/p 1 unit pRBC transfusion 10/31, no overt sign of bleeding DIC labs unrevealing (elevated fibrinogen, d dimer but CT PE was negative) Iron studies unrevealing : Iron, TIBC WNL Plan: CTM Daily CBC Consider heme consult, bone marrow biopsy? ? ? # CARO 2/2 aggressive diuresis due to orthopnea, PND Plan: Strict I/O Hold diuresis # pAfib AMET called for afib with RVR HR 156 ove rnight of 11/02 AMET called, given 5 mg IV metoprolol x2, spontaneously converted to NSR Currently on 25 mg metoprolol tartrate BID Home: metoprolol succinate, apixiban 5 mg BID Plan: Continue rate control with metop tartrate, uptitrate as neee ded Hold AC due to thrombocytopenia Rounding Checklist: Diet/Nutrition: heart healthy Mobility status: mobile VTE Prophylaxis: deferred due to thrombocytopenia Pain management: tylenol Glycemic control: SSI Code Status: full Dispo Planning: pending 10/31/19 1215 vte pharmacologic prophylaxis contraindicated (ky,wi) 10/31/19 1215 pneumatic compression stockings (ky,wi) 10/31/19 1215 activity - mobilize patient ([place], [place]) SIGNATURE: Skylar Seay MD PHD PGY-1 PATIENT NAME: Tiana medina DATE: 11/04/2019 TIME: 7:58 AM PAGER: [phone] Note: These recommendations are not final until staffed by max harris HEMATOLOGY/MEDICAL ONCOLOGY/[facility] BRAIN TUMOR C[facility] STA FF: STAFF PHYSICIAN NOTE OF PERSONAL INVOLVEMENT IN CARE I have reviewed the progress note obtained and documented by the Resident and I personally participated in the kelley components. I have discussed the case and management of the patient's care with the Resident. The foll owing comments revise or confirm relevant kelley components of the Resident's note. IMPRESSION/PLAN: Bronch achieved without stenting. Prelim pa th SCLC which should be sensitive to chemotherapy hopefully allowing air way to open. Will check for clinical trial for ES-SCLC. COPD management in pro gisel. Thrombocytopenia possibly [place] [id number] Previous Version Jay Kelly, OLE 11/04/2019 2:05 PM S igned [employer] PROGRESS NOTE Name: Tiana Martínez Date of visit: November 04, 2019 Purpose of visit: Introduce SW role and inquire about ADs Chart reviewed. Met with pt at to introduce sal vasquez. Pt reports that he feels that the information shared has been understood by he and his son, Jr Tiana. Pt provided a clear line of his medical course and stated that he feels that he is headed for comfort care. We discussed his goals and he shared that his son has taken this hard. Validation and support provided. 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 María e offered to have his son, Tiana, bring them for scanning. Spoke to pt's son, Tiana, who agreed to produce t he advance directives when he arrives to visit pt today. While we spoke, Tiana mentnaveen lee that he feels like the pt's condition is funnel ing him toward hospice care. I explained that I had discussed this topic with e pt earlier and would be willing to assist with the conversation with the medical team once the results are back from the broch/biopsy. Met Tiana at main entrance to collect AD forms for revi ew. Accepted forms and copied and sent for scanning. Originals will be returned to pt/son when able. Pt is currently at procedure and son is unable to visit room until pt has returned. We continue to remain involved and regularly discuss p atient's progress with nurse and/or physician, and remain available to patient's [facility]. Signature: JARETH Stanley [facility] Product Development Actuary Pager: [phone] Date: November 04, 2019 Time: 10:58 AM Huy Brown, PT, PT 11/04/2019 1:20 PM Signed PHYSICAL THERAPY MISSED VISIT SERVICE DATE: 11/04/2019 SERVICE TIME: 1320 to 1320 ROOM: [place] [id number] Attempted Evaluation. Patient not seen d ue to Test/Procedure. Physical therapy will continue to monitor this patient. SIGNATURE: Huy Brown, PT PATIENT NAME: Tiana Martínez DATE: November 04, 2019 TIME: 1:20 PM Meghana Fabian MD 11/04/2019 4:24 PM Signed POST ANESTHESIA EVALUATION NOTE SERVICE DATE: 11/04/2019 SERVICE TIME: 15:50 : 1940 Vitals: 11/04/19 0538 11/04/19 0959 11/04/19 1341 11/04/19 1541 Temp: 36.6 ?C (97.9 ?F) 36.6 ?C (97.9 ?F) 36.7 ?C (98.1 ?F ) 36 ?C (96.8 ?F) 11/04/19 1341 11/04/19 1541 11/04/19 1545 11/04/19 1600 BP: 175/90 158/98 189/96 179/91 11/04/19 1341 11/04/19 1541 11/04/19 1545 11/04/19 1600 Pulse: 74 85 89 92 11/04/19 1341 11/04/19 1541 11/04/19 1545 11/04/19 1600 Resp: 18 18 18 18 11/04/19 1341 11/04/19 1541 11/04/19 1545 11/04/19 1600 SpO2: 96% 100% 96% 95% Validated Vital Signs: Yes POST ANES STATUS: No apparent anesthetic complications. The patient is appropriately hydrated with stable respiratory and cardiovas cular status. Patient has safe and adequate airway con trol. The patient has appropriate pain relief and no significant post operative nausea or vom iting. The patient has achieved baseline mental status. Intra-Operative Events: No Significant Anesthesia Events Further assessment by Anesthesia Service: None Other Remarks: SIGNATURE: Meghana Fabian MD PATIENT NAME: Tiana banegas DATE: November 04, 2019 TIME: 4:23 PM PAGER/CONTACT #: [phone] Lizandro Cruz MD 11/04/2019 5:05 PM Signed Interventional Pulmonary Medicine Bronchoscopy completed. Please see full noted under get higinio ges or the procedure tab in chart review. FINDINGS: - Extensive airway tumor in LMS bronchi and NORY. The L UL is occluded and not amenable to bronchoscopic intervention - Endobronchial needle aspir ates and endobronchial biopsies were performed from the above described disease - Rapid On-Site Evaluation (CORY): Preliminary cytolog y of the lesion in the left mainstem bronchus was suggestive of malignancy, possibl y small cell carcinoma (final results are pending). Electronically Signed: Lizandro Cruz MD, MS November 04, 2019 5:03 PM Ifrah Caicedo, RN, RN 11/04/2019 11:12 PM Signed Nursing Progress Note Patient Name: Tiana Martínez Patient Location: G070 [id number] Daily Note:Pt alert and oriented x 3. Pt sat up in chair all evening. Compression wraps on bilat legs while in chair and just removed now that he is back in bed. Pt called this RN in to state that his scrotu m is bleeding. On underneath of his scrotum there was a old scar that lo oked irritated and had scant blood on it. Will monitor. Pt anxious. Time spent pr oviding emotional support. This note was completed by: Ifrah Caicedo, RN Katina Holland, JUNIE, RN 11/05/2019 5:26 AM Addendum Nursing Progress Note Patient Name: Tiana Mratínez [id number] Daily Note: [id number] Tylenol given for pain 10 to R hip. Heart/lung sounds WNL. Irregular HR on ascultation. Pt on tel emetry, monitor reviewed, patient in Afib HR 80-100. (01950) updated. 0500 MASD noted to scrotum, Aquaphor cream delivered from pharmacy, pt self applied. Pt noted wheezing/SOB, sating w ell on 2L NC. RT at bedside for PRN tx and scheduled mucomyst. AM labs drawn by lab director. This note was completed by: Katina Holland RN Previous Version history physical on 2019-10-31 HISTORY HNO ID: [id number] Normal 10-31-2019 [place] PHYSICAL Author: Skylar Sharif (Gaviota Seay MD Clinic Service: Oncology Cl maricel Author Type: Resident ([id number]) Type: HANDP Filed: 10/31/2019 10:05 PM Note Text: Solid Tumor Oncology 1 History and Physical PATIENT NAME: Tiana Martínez PRIMARY SERVICE: ADMISSION DAY 10/31/2019 HOSPITAL DAY: 0 CODE STATUS: Code Status: Not on file History of Presenting Illness Tiana Martínez is a 79 year old male transferred from [facility] he presented with chief complaint of dyspnea. Patient reports that several weeks ago he [facility] department and what day was diagnosed with a new hilar left upper lobe mass that had rapidly grown since his last imaging in . The patient has a history of lung cancer and COPD. He started ex periencing shortness of breath and chest pain, sharp, stabbing on the l eft side of his chest. He developed thicker white phlegm, difficult to e xpectorate, and was feeling short of breath. The patient did not previou sly require oxygen at home. Denied fevers, chills, nausea, vomiting or b lood with coughing. Chest x-ray showed diffusely opacified left lung s uggestive of pneumonia and atelectasis, with possible postobstructive pne umonitis. A chest CTA showed no pulmonary embolism arterial dissection, but showed a spiculated nodule in the right upper lobe measuring approxim ately 1.5 cm, with a large loculated left hilar mass with atelectasis in t he lingula and left upper lobe, and a perihilar mass encasing the left pulm onary artery, measuring 6.8 x 4.9 x 6.6 cm in size. Also noted was enlarge ment of mediastinal nodes, the largest measuring approximately 5.7 x 3.4 cm. Labs were notable for creatinine of 1.54, lactic acid initially a t 4, and then down trended to 2.7, platelets 51, WBC 10.6. He had no repor alejandrina hypotension but required up to 2 L of oxygen. at the outside hospital his pain was managed by IV morphine, he was started on Rocephin and Zithromax. The [facility], Dr. Sam Sanchez, for further m anagement and consideration of bronchoscopy. Briefly, they have the following significant past oncologic history: - Right upper lobe non-small cell lung cancer (stage Ia) s/p SBRT (50 Gy in 5 fx) completed 03/22/16 -The patient continued to be monitored by CT, and showed no evidence of disease but a visible CT density continued to increase sligh tly over the previous CTs, though negative on PET uptake, concerning for post SBRT change vs progression of PET negative neoplasm -Was last seen by Dr. Sanchez, eventually on 04/23/2019 whe n he recommended CT-guided biopsy of this possible mass. The biop sy from 05/20/2019 showed focally infarcted tissue without granulomas or malignant cells. Other PMH: - COPD, emphysema - p Afib, on apixiban 5 mg BID - T2DM, diet controlled - SCC of skin, thyroid cancer Upon arrival to [facility], the patient was hemodynamically stable w/ active complaints of SOB. His T was 36.8 ?C (98.2 ?F), BP was 139/75 and his pulse was 103, RR was 18 and oxygen saturation is 99% on 2L O2. Denies fever, chil ls, palpitations, lightheadedness/dizziness, chest pain, abdomin al pain, n/v/d, pain or discomfort with urination. Endorses SOB. Comp lained of the restrictive visitation rules at [facility]. Lab Studies: Component Latest Ref Rng AND Units 10/31/2019 WBC 3.70 - 11.00 k/uL 9.17 RBC 4.20 - 6.00 m/uL 3.14 (L) Hemoglobin 13.0 - 17.0 g/dL 7.2 (L) Hematocrit 39.0 - 51.0 % 25.4 (L) Platelet Count 150 - 400 k/uL 41 (L) Lactate 0.5 - 2.2 mmol/L 2.1 Alkaline Phosphatase 38 - 113 U/L 108 AST 14 - 40 U/L 141 (H) BUN 9 - 24 mg/dL 41 (H) Creatinine 0.73 - 1.22 mg/dL 1.18 Sodium 136 - 144 mmol/L 146 (H) Potassium 3.7 - 5.1 mmol/L 3.4 (L) Chloride 97 - 105 mmol/L 107 (H) CO2 22 - 30 mmol/L 28 Covid19: negative Procalcitonin: 0.36 Nasal swab negative for MRSA by PCR. Review of Systems Entries in BOLD are positive ROS endorsed by the patient. Al l other ROS has been reviewed and is negative with the exception of the BOLD entries. GENERAL: Malaise, significant weight loss, fever, chills, ni ght sweats HEENT: Frequent or significant headaches, significant change s in vision or vision problems, significant ear problems or hearing loss, n marisa discharge or nose bleeds, sore throat, difficulty swallowing, mouth le sions NECK: Lumps, goiter, pain, and significant neck swelling RESPIRATORY: Cough, wheezing, shortness of breath, ROSARIO CARDIOVASCULAR: Chest pain, leg swelling, palpitations, orth opnea, PND GASTROINTESTINAL: Abdominal discomfort, blood in stools or b lack stools, change in bowel habits GENITOURINARY: Dysuria, frequency, hesitancy, straining, hem aturia, incontinence MUSCULOSKELETAL: Joint pain or swelling, back pain, and musc le pain NEUROLOGIC: Focal numbness or weakness, headaches and dizzin ess SKIN: Lesions, rash, and itching PSYCHIATRIC: Sleep disturbance, mood disorder, and recent ps ychosocial stressors HEMATOLOGIC/LYMPHATIC/IMMUNOLOGIC: Prolonged bleeding, bruis ing easily, and swollen nodes ENDOCRINE: Cold or heat intolerance, polyuria, polydipsia, a nd goiter Past medical history / surgical hx / family hx / social hx PAST MEDICAL HISTORY Diagnosis Date - Atrial fibrillation (HCC) - Basal 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 [id number] - COPD (chronic obstructive pulmonary disease) ([facility]) - CVA (cerebral vascular accident) ([facility]) 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 - Diverticulosis of colon (without mention of hemorrhage) - DM (diabetes mellitus) ([facility]) - Hemorrhage of gastrointestinal tract, unspecified - Hypercholesteremia - Lung cancer (HCC) - Sebaceous cyst knee - Sebaceous cyst arm pit - Sebaceous cyst back PAST SURGICAL HISTORY Procedure Laterality Date - COLONOSCOP W/ OR W/O BRSH SPEC 06/14/07 [facility] inpt FAMILY HISTORY Problem Relation Age of Onset - Emphysema Mother - Heart disease Mother - Hypertension Mother - Stroke Mother - Heart Father - Alcohol/Drug Father - Hypertension Father - Stroke Father - Breast Cancer Sister - None Sister Social History Tobacco Use - Smoking status: Current Every Day Smoker Packs/day: 0.50 Years: 50.00 Pack years: 25.00 Types: Cigarettes - Smokeless tobacco: Never Used Substance Use Topics - Alcohol use: No - Drug use: No Medications AND Allergies Prior to admission meds: atorvastatin (LIPITOR) 40 mg tablet, Take 40 mg by mouth onc e daily. furosemide (LASIX) 40 mg tablet, Take 40 mg by mouth every 4 8 hours. ELIQUIS 5 mg tab(s), Take 5 mg by mouth twice daily. TOPROL XL 50 mg 24 hr tablet, Take 50 mg by mouth once daily . olmesartan (BENICAR) 5 mg tablet, Take 5 mg by mouth once da maicol. rOPINIRole Hydrochloride 3 mg tablet, Take 3 mg by mouth seth ly at bedtime. fluticasone/umeclidin/vilanter (TRELEGY ELLIPTA INHALATION), Inhale as instructed once daily. Multivitamin capsule, Take 1 capsule by mouth once daily. albuterol HFA (PROAIR HFA) 90 mcg/actuation inhaler, Inhale 2 Puffs as instructed as needed. aspirin(ADULT ASPIRIN EC LOW STRENGTH 81 MG TAB, DELAYED REL EASE), Take one(1) tablet daily. melatonin 3 mg tablet, Take 3 mg by mouth daily at bedtime. latanoprost (XALATAN) 0.005 % ophthalmic solution, 1 Drop da maicol at bedtime. EPINEPHrine (EPIPEN 2-ANUEL) 0.3 mg/0.3 mL auto-injector, Inje ct 0.3 mg intramuscularly as needed. CURRENT ALLERGIES: ALLERGIES Allergen Reactions - Bees Physical Exam BP 158/81 Pulse 100 Temp 36.8 ?C (98.2 ?F) (Oral) Resp 16 SpO2 96% Temp Av.7 ?C (98 ?F) Min: 36.7 ?C (98 ?F) Max: 36.7 ?C (98 ?F) Pulse Av Min: 111 Max: 111 No data recorded Cuff BP Min: 150/69 Max: 150/69 General appearance: in NAD, speaking in full coherent senten dhiraj, nondiaphoretic, cooperative with appropriate affect HEENT: anicteric sclera, EOMI, MMM. Non-cyanotic lips. Tongu e and posterior oropharynx normal. Teeth normal. Respiratory: Diminished breath sounds in NORY, LIL, LLL, Diff use expiratory wheezes. Diaphragmatic excursion and chest wall symmetry myriam ear equal and normal. No accessory muscle use. On 2L O2. Cardiovascular: RRR without gallop, or rubs or murmur. Non-d isplaced PMI. No parasternal heave. No carotid, abdominal aortic, femoral bruits noted. Normal pedal pulses bilaterally. 2+ peripheral edema noted i n the upper or lower extremities. Normal temperature of all 4 extremitie s. Abdomen/GI: Abdomen soft, non-tender, non-distended. No mass es or organomegaly noted. No hepatojugular reflux, no ascites Extremities: No clubbing or cyanosis of fingers. No cracking , pitting or petechiae on fingers. Capillary refill <2 sec bilaterally. Musculoskeletal: Spine shows no kyphosis or scoliosis. Muscl es show no clear abnormality. Skin:No petechiae, ecchymoses, rash noted. No jaundice, no p almar erythema, no spider angiomas. Neurologic: AOx3, able to vocalize, moves all extremities, n o asterixis Psychiatric: no abnormalities with mood with congruent affec t Fluid Balance Fluid balance: Intake/Output Summary (Last 24 hours) at 10/31/20192135 Last data filed at 10/31/2019 193 Gross per 24 hour Intake 50 ml Output 227 ml Net -177 ml Last Admit Weight change: Historical weights (outpatient/ED visits) Last 8 Encounter Wt Readings: Date: Wt: 06/11/2019 90.7 kg (200 lb) 04/24/2019 88.5 kg (195 lb) 12/31/2018 83.2 kg (183 lb 8 oz) 05/02/2018 83.5 kg (184 lb) 12/21/2017 85.3 kg (188 lb) 12/21/2017 85.3 kg (188 lb) 12/01/2016 86.6 kg (191 lb) 11/20/2016 87.1 kg (192 lb) Labs CBC: Recent Labs 10/31/19 1357 WBC 9.17 HB 7.2* HCT 25.4* PLT 41* MCV 80.9 RDWCV 29.2* NEUTP 73.0 ABSNEUT 6.69 LYMPHP 19.0 MONOP 4.0 EODINP 1.0 COAG: Recent Labs 10/31/19 1357 INR 1.0 BMP: Recent Labs 10/31/19 1357 10/31/19 1343 GLUC 145* -- NA 146* -- K 3.4* -- CHLOR 107* -- CO2 28 31* ANION 11 -- BUN 41* -- CREAT 1.18 -- CHEM: Recent Labs 10/31/19 1357 ALB 3.0* TPROT 5.5* CA 9.4 HEPATIC: Recent Labs 10/31/19 1357 ALKPHOS 108 ALT 56* AST 141* TBILI 0.4 URINALYSIS:No results for input(s): PH, SPGR, UGLUC, UBILI, UKET, UHB, UPROT, UROBIL, UWBC, SSA in the last 168 hours. Invalid input(s): NITR CARDIAC: No results for input(s): CKTEST, CKMB, CKMBP, TROPT , PBNP in the last [address] 12/24/2018 Spiculated right upper lobe subpleural nodule is mildly larg er and more consolidative in comparison to prior scans, and suspicious f or recurrence/growth. ?Notably, the nodule demonstrated residua l mild FDG avidity on a remote PET/CT from 01/15/2018 and previously se en groundglass components of the nodule are now replaced with s olid components. Interval resolution of diffuse centrilobular nodules and per ibronchial groundglass opacities compatible with resolved infection or aspiration. Stable 3 mm indeterminate left upper lobe nodule. ?New clust er of 2-4 mm centrilobular nodules in the RLL could be infectious/inflamm atory. ? Follow-up is suggested. CTA 10/31/2019 no pulmonary embolism arterial dissection. Spi culated nodule in the right upper lobe measuring approximately 1.5 cm, with a large loculated left hilar mass with atelectasis in the lingula an d left upper lobe, and a perihilar mass encasing the left pulmonary arter y, measuring 6.8 x 4.9 x 6.6 cm in size. Enlargement of mediastinal nodes , the largest measuring approximately 5.7 x 3.4 cm. Assessment and Plan 79 year old male PMH of Right upper lobe non-small cell lung cancer (stage Ia) s/p SBRT (50 Gy in 5 fx) completed 03/29, who presented with SOB, found to have a large loculated left hilar mass with atelect asis in the lingula and left upper lobe, and encasing the left pulmonary artery, with possible postobstructive pneumonitis. # NSCLC # large lung mass Plan: MRI brain wo/w IV contrast NM pet whole body F/u pulm recs re EBUS # postobstructive pneumonia/pneumonitis # hypoxia Plan: Repeat CXR Strep pneumo urine AG Legionella Ag urine RSV panel Covid-19 Continuous pulse oxymetry VBG Zosyn 3.75 q6h # COPD - duoneb PRN # ADHF Weight gain 2+ pedal edema Plan: - NT pro BNP - TTE - Tele - Fluid restriction (<1.5 L), salt restriction (<2g) - Daily wgts - Strict I/Os - Suppl O2 to titrate O2>92%, CPAP/BiPAP if needed - Lasix 40 mg IV / gtt, monitor Cr, lytes - continue home ARB - reduce BB # thrombocytopenia Platelet Count (k/uL) Date Value 10/31/2019 41 (L) 05/15/2019 249 01/13/2016 252 unclear precipitating factor Plan: CTM Consider heme consult No AC # anemia Hemoglobin (g/dL) Date Value 10/31/2019 7.2 (L) 05/15/2019 12.6 (L) 01/13/2016 15.7 Plan: CTM Daily CBC F/u DIC labs Iron studies Rounding Checklist: Diet/Nutrition: heart healthy Mobility status: mobile VTE Prophylaxis: deferred due to thrombocytopenia Pain management: tylenol Glycemic control: SSI Code Status: full Dispo Planning: pending SIGNATURE: Skylar Seay MD PhD PGY-1 PATIENT NAME: Tiana medina DATE: 10/31/2019 TIME: 9:36 PM PAGER: [phone] This is a preliminary note which reflects the assessment of the authoring medicine resident only. The patient remains to be seen by an d discussed with oncology staff, at which time the final assessment and recommendations may be edited. gasv + all on 10-30 Base Excess 5 mmol/L Normal [facility]-31-2019 [id number] Comment: Performed By: #### VALLBG ## ##[facility], [place] [phone] Blood Gas Comm, [place] . Normal 10-31-2019 [facility] ([id number]) Comment: Performed By: #### VALLBG ## ##[place] [address], [place] [phone] Calcium [Mass/Vol] 1.33 1.08-1.30 mmol/L High 10-31-2019 [facility] ([id number]) Comment: Performed By: #### VALLBG ## ##[place] [address], [place] [phone] Carboxyhemoglobin,Gerson 2.1 <2.1 % High 10-31-19 20 [facility] ([id number]) Comment: Performed By: #### VALLBG ## ##[place] [address], [place] [phone] CO2 [Moles/Vol] 31 25-29 mmol/L High 10-31-2019 [facility] (10208) Comment: Performed By: #### VALLBG ## ##[place] [address], [place] [phone] Glucose [Mass/Vol] 151 60-105 mg/dL High 10-31-2019 [facility] (13498) Comment: Performed By: #### VALLBG ## ##[place] [address], [place] [phone] HCO3 (Bld) [Moles/Vol] 30 24-28 mmol/L High 020 [facility] (00525) Comment: Performed By: #### VALLBG ## ##[place] [address], [place] [phone] Hematocrit (Bld) [Volume 23.5 39.0-51.0 % Low 10-30 [facility] fraction] (20286) Comment: Performed By: #### VALLBG ## ##[place] [address], [place] [phone] Hemoglobin (Bld) 7.5 13.0-17.0 g/dL Low 10-31-2019 [facility] [Mass/Vol] [place] (80063) Comment: Performed By: #### VALLBG ## ##[place] [address], [place] [phone]- [phone] Lactate [Moles/Vol] 2.1 0.5-2.2 mmol/L Normal 10-31-2019 [facility] (12419) Comment: Performed By: #### VALLBG ## ##[place] [address], [place] [phone] Methemoglobin 0.8 <1.6 % Normal 10-31-2019 [facility] (42269) Comment: Performed By: #### VALLBG ## ##[place] [address], [place] [phone] O2 Administered 24% Normal 10-31-2019 [facility] (48871) Comment: Performed By: #### VALLBG ## ##[place] [address], [place] [phone] Oxygen (Bld) [Partial 38 35-45 mm Hg Normal 10-31-19 20 [facility] pressure] (76916) Comment: Performed By: #### VALLBG ## ##[place] [address], [place] [phone] Oxyhemoglobin, Gerson. 60 60-85 % Normal 10-31-2019 [facility] (75550) Comment: Performed By: #### VALLBG ## ##[place] [address], [place] [phone] pCO2 49 42-55 mm Hg Normal 10-31-2019 [facility] (77963) Comment: Performed By: #### VALLBG ## ##[place] [address], [place] [phone] pCO2, Temp Correct 49 42-55 mm Hg Normal 10-31-2019 [facility] (32610) Comment: Performed By: #### VALLBG ## ##[place] [address], [place] [phone] pH (Bld) 7.40 7.32-7.42 [pH] Normal 10-31-2019 [facility] (66238) Comment: Performed By: #### VALLBG ## ##[place] [address], [place] [phone] pH, Temp Corrected 7.40 7.32-7.42 Normal 10-31-2019 [facility] (16106) Comment: Performed By: #### VALLBG ## ##[address] [place], [place] [phone]- [phone] pO2, Temp Corrected 38 35-45 mm Hg Normal 10-31-2019 [facility] (97317) Comment: Performed By: #### VALLBG ## ##[address] [phone] Potassium [Moles/Vol] 3.5 3.5-5.0 mmol/L Normal 10-31-19 [facility] (29127) Comment: Performed By: #### VALLBG ## ##[address] [phone] Sodium [Moles/Vol] 148 136-144 mmol/L High 10-31-2019 [facility] (38841) Comment: Performed By: #### VALLBG ## ##[place] [address], [place] [phone]- [phone] expedited covid19 o n 2019-10-31 COVID 19 Result Negative for Negative for Normal 10-31-19 [facility] PRECISION AGRONOMIST COVID19 (SARS COVID19 (SARS Cl maricel (90485) CoV2) by PCR. CoV2) by PCR. Comment: Result Comment: This test hoang s been authorized by FDA under an Emergency Use Authorization (EUA). Performed By: #### EXCOVD ## ##[facility] [address] [place], [place] [phone] COVID 19 Source PRECISION AGRONOMIST Nasopharyngeal Swab Normal 0 10-31-2019 [facility] (69053) Comment: Performed By: #### EXCOVD ## ##[facility] [address] [place], [place] [phone]- [phone] ecg complete on ECG COMPLETE NAME : TIANA MARTÍNEZ Normal 10-31-19 [facility] PID : [id number] Bladimir evans ([id number]) : 1940 Gender : Male Race : ORD : [id number] Procedure Date : Oct 31 2019 13:04:31 Edit Date : Nov 03 2019 14:12:18 Diagnosis:SINUS RHYTHM WITH PREMATURE ATRIAL COMPLEXES OTHERWISE NORMAL ECG Confirmed by MD SCRUGGS HEBA ([id number]) on 11/03/2019 2:12:17 P M Ventricular Rate : 91 BPM Atrial Rate : 91 BPM P-R Interval : 150 ms QRS Duration : 86 ms Q-T Interval : 356 ms QTC Calculation(Bazett) : 437 ms P [place] : 59 degrees R [place] : 53 degrees T [place] : 63 degrees Test Reason : Arrhythmia Location : 53 : H50 22 Overread By : MD SCRUGGS HEBA Edited By : MD CSRUGGS HEBA Referred By : RADU JACK Acquired by : ERIKA DIAZ ct-cta chest w/wo contrast import on 2019-10-31 CT-CTA Chest Images were obtained outside of [place] [facility] Normal 10-31-2019 [facility] W/WO Contrast [id number] [place] ([id number]) IMPORT ct-cta chest w/wo contrast - overread on 2019-10-31 CT-CTA Chest * * *Final Report* * * Normal 10-12 [facility] W/WO Contrast - * * * SEE BOTTOM OF REPORT FOR ADDENDED TEXT * * * [place] OVERREAD DATE OF EXAM: Oct 31 2019 12:00AM ([id number]) OUT 0002 - CT OUTSIDE CD DICOM IMPORT -NBNR / [id number] PROCEDURE REASON: Tumor Board Discussion * * * * Physician Interpretation * * * * * * * * * * * * ORIGINAL REPORT * * * * * * * * EXAMINATION: OUTSIDE IMAGE INTERPRETATION Indication for the Request / Reason for Overread: Tumor Boar d Discussion Specific Issue(s) Discussed: Tumor Board Discussion 79 year old male?current daily smoker with 25 pack year (half a pack for 50 years) transferred from [facility] where he presented?with chief complaint of dyspnea ; history of lung cancer/RUL non-small cell (?s/p SBRT (50 Gy in 5 fx) completed 03/22/16) and COPD.?? A?chest CTA showed no pulmona ry embolism arterial dissection,?but showed a spiculated nodule in the r ight upper lobe measuring approximately 1.5 cm, with a large loculated left hilar mass with atelectasis in the lingula and left upper lobe, an d a perihilar mass encasing the left pulmonary artery, measuring 6.8 x 4.9 x 6.6 cm in size.??Also noted was enlargement of mediastinal nodes, the largest measuring approximately 5.7 x 3.4 cm. Transferred to the [facility] at the suggestion of his outpatient oncologist, Dr. Miguel Sanchez,?for further management and consideration of bronch oscopy. The biopsy from 05/20/2019 of right upper lobe lesion showed focal ly infarcted tissue without granulomas or malignant cells. Images Reviewed: CTA/CT PE of the chest performed on 10/31/19 20 12:00 AM Image Quality: technically adequate images Overread Date: 11/03/2019 8:56 AM MQ: Over_2B Comparison: PET/CT dated 04/01/[address] dated 12/24 . RESULT: Limitations: None. Solutions Development Analyst (topogram) images: Subtotal left upper lobe consolidat favio opacity noted, with large rounded, partially circumscribed/marginate d central mass suspected on the left. Mildly hyperinflated. Subtle rig ht lung with small nodular lesion. Biapical capping. Evaluation for thromboembolic disease: - Right heart chambers: No thromboembolic disease. - Main pulmonary arteries: No thromboembolic disease. There is extrinsic compressive effect on left pulmonary artery, inter lobar artery and branch vessels including left upper and lingular and pro bably proximal left lower lobe arteries. - Lobar pulmonary arteries: No thromboembolic disease. - Segmental pulmonary arteries: No thromboembolic disease. - Subsegmental pulmonary arteries: No thromboembolic disease . - Additional pulmonary artery findings: The main pulmonary a rtery is upper limits of normal normal in caliber, about 28 mm. Lines, tubes, and devices: None. Lung parenchyma: On lung windows, saber-sheath tracheal conf iguration. Bronchial wall thickening changes suggestive of airways infl ammation. Retained secretions within the left main bronchus. Left uppe r lobe bronchial obstruction, with small nodular component protrudi ng into the distal left main bronchus, image 145 series 2 may represent tip of the obstructing tumor. I cannot identify the exact margins of th e centrally obstructing tumor. Postobstructive subtotal dense collapse o f the left upper lobe is seen, with some degree of consolidation suspec alejandrina, and portion of left upper lobe near the apex aerated. Postobstru ctive inflammation may contribute. Bulging of the left major fissu re is noted centrally near the hilum (corresponding with a rounded conto ur on the scanogram, suggestive of Rosales S sign). Groundglass attenuation opacities are noted in the left lowe r lobe, adjacent to the left major fissure image 123 and posteriorly . Elongated nodular opacity is noted within the left lower lobe superior segment, image 139 and tiny indeterminant nodule noted on image 170. Spiculated right upper lobe nodule is redemonstrated, measuring about 1 4 x 12 mm on image 204 series 2. Stable small subsolid nodular lesion, pr obably of groundglass attenuation measuring about 5 mm in long axis on image 150 within superior segment of right lower lobe. Pleural space: New small posteriorly layering left pleural e ffusion is noted. No obvious pleural nodularity appreciated. No pneumot horax. Lower neck, lymph nodes, and mediastinum: Probably stable th yroid gland, with no known left inferior pole low-attenuation lesi on nodular lesion, difficult to accurately identify (but demonstrated F DG uptake on 04/01/2019 exam. Left lower cervical lymph node noted measur ing 9 mm on image 251 series 2, about C6-7 level . 2 additional subce ntimeter lower cervical/supraclavicular lymph nodes noted. No axillar y lymphadenopathy noted. Intrathoracically, confluent lymphade nopathy is noted in the left paratracheal space, contiguous with left h ilar region, probably contiguous with central tumor. At the left lower pa ratracheal space, lymphadenopathy measures about 18 x 52 mm on image 15 8 series 2. Inferior para-aortic lymph node on same image measures 11 mm . More superiorly, left lower paratracheal lymph node measures 38 x 31 mm on image 163. Subaortic level lymph node measures about 15 mm o n same image. Contralateral/right pretracheal/paratracheal level ly mph node is about 11 mm on image 172. More inferiorly, another right low er paratracheal lymph node is suspected, difficult to accuratel y measure due to streak artifacts. Subcentimeter subcarinal lymph nodes no alejandrina, with left inferior subcarinal/paraesophageal level 9 mm lymph nod e noted on image 137, probably slightly increased in size compared to 0 12/24/2018 exam. It should be noted that most of the mediastinal and le ft hilar lymphadenopathy has developed since 12/24/2018 and 04/01/2019 PET/CT exam. Heart, pericardium, and thoracic vessels: Atherosclerotic ca lcifications of the aorta and its branches noted. Common origins of the r ight brachiocephalic and left common carotid arteries noted, an a natomic variant. Coronary artery calcifications noted, with possible LAD stent in place, with involvement of circumflex and RCA (also stent ed?) vessels. Cardiac chambers are within normal limits. Mildly p rominent epicardial fat noted, including the interatrial septum and m ay relate to lipomatous hypertrophy of interatrial septum. No pericardial effusion. Stable esophagus noted. Bones and soft tissues: 17 mm (long axis) low-attenuation (5 Hounsfield units), smoothly circumscribed lesion is noted in the right anterior chest wall, visible back to 12/24/2018, and most likely repr esents a sebaceous cyst. Minimal bilateral retroareolar glandular tis sues noted. On bone window images, degenerative changes of the spine not ed. Probable vertebral hemangiomas at about T9 and L1 levels. Upper abdomen: Low-attenuation lesions of the liver are note d involving right and left lobes, for example 3 lesions on image 49, lef t lobe lateral segment image 36, and T2 lesions within the right lo be posterior segment image 15 and 1 possibly near portal vein with the ri ght lobe on same image. These are most likely metastatic. Suspect left r enal upper pole cyst, image 10, with possible layering calcium (milk of calcium?). Probably stable adrenal glands. Atherosclerotic calcificatio ns of the abdominal aorta and its branches. The rest of the upper abdo hernan visceral structures appear grossly stable. IMPRESSION: 1. No CT evidence of pulmonary embolism. 2. Compared to PET/CT dated 04/01/2019 exam, there has been interval development of centrally obstructing tumor/mass (margins of which is difficult to delineate), with subtotal dense collapse of the left upper lobe sparing apical region. Confluent, extensive lymphadenop athy in the left hilar and mediastinal regions with contralateral lympha denopathy suspected in the right lower paratracheal space. The rapid d evelopment is most suspicious for small cell lung cancer, and presumed to be an metachronous primary lung malignancy. Conspicuous left supraclavicular/lower cervical level lymph nodes noted and m ay be metastatic. Recommend PET/CT and tissue sampling. 3. Multiple low-attenuation lesions of the liver are noted, suspicious for metastatic disease. New small left pleural effusion with out obvious pleural nodules. 4. Known FDG avid left inferior thyroid nodular lesion is di fficult to accurately identify but may represent thyroid neoplasm. Doub t metastatic disease. 5. Multivessel coronary artery calcifications with possible coronary artery stent/stents. * * * * * * * * ADDENDUM #1 * * * * * * * * Impression #6: Punctate left lower lobe nodule, appears new compared to 2019 exam, and could be metastatic. Attention on follow-up r ecommended. 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 System: SCOOBY Transcribe Date/Time: Nov 03 2019 9:55A Dictated by : NIMO WARREN MD This examination was interpreted and the report reviewed and electronically signed by: NIMO WARREN MD on Nov 03 2019 9:43AM EST This document has been addended by: NIMO WARREN MD on Nov 03 2019 9:57AM EST [id number] comp metabolic panel on 2019-10-31 Albumin [Mass/Vol] 3.0 3.9-4.9 g/dL Low 10-31-2019 [facility] (79298) Comment: Performed By: #### PT, CMP, CBCDIF ####[place] [address] [address] [address] ALP [Catalytic activity/Vol] 108 38-113 U/L Normal 0 10-31-2019 [facility] (60575) Comment: Performed By: #### PT, CMP, CBCDIF ####[place] [address] ALT [Catalytic activity/Vol] 56 10-54 U/L High 0 10-31-2019 [facility] (24967) Comment: Performed By: #### PT, CMP, CBCDIF ####[place] [address] Anion gap [Moles/Vol] 11 9-18 mmol/L Normal 10-31-19 20 [facility] (59282) Comment: Performed By: #### PT, CMP, CBCDIF ####[place] [address] AST [Catalytic activity/Vol] 141 14-40 U/L High 0 10-31-2019 [facility] (63731) Comment: Performed By: #### PT, CMP, CBCDIF ####[place] [address] Bilirubin [Mass/Vol] 0.4 0.2-1.3 mg/dL Normal 0 [facility] (08675) Comment: Performed By: #### PT, CMP, CBCDIF ####[place] [address] Calcium [Mass/Vol] 9.4 8.5-10.2 mg/dL Normal 10-31-2019 [facility] (32876) Comment: Performed By: #### PT, CMP, CBCDIF ####[place] [address] Chloride [Moles/Vol] 107 97-105 mmol/L High 0 [facility] (04585) Comment: Performed By: #### PT, CMP, CBCDIF ####[facility] [address] [address] [phone] CO2 [Moles/Vol] 28 22-30 mmol/L Normal 10-31-2019 [facility] (27359) Comment: Performed By: #### PT, CMP, CBCDIF ####[facility] [address] [place] [address] [phone] Creatinine [Mass/Vol] 1.18 0.73-1.22 mg/dL Normal 10-31-19 20 [facility] (46925) Comment: Performed By: #### PT, CMP, CBCDIF ####[facility] [address] [place] [address] [phone] eGFR- Amer. >60 Normal 10-31-2019 [facility] (82805) Comment: Performed By: #### PT, CMP, CBCDIF ####[facility] [address] [place] [address] [phone] GFR/1.73 sq M predicted among 59 . Normal 10-31-2019 [facility] non-blacks MDRD (S/P/Bld) [Vol (58436) rate/Area] Comment: Result Comment: eGFR (Estima alejandrina GFR) Units of measure: mL/min/1.73 meters squared eGFR is derived from the ree xpressed MDRD Study equation using the following parameters: serum creatinine, age, gender and race. The creatinine assay has been calibrated to be traceable to IDMS. An eGFR <60 mL/min/1.73m2 fo r >3 months is consistent with chronic kidney disease. Refer to KDOQI guidelines for clinical interpretation. In patients with unstable re nal function, e.g. those with acute kidney injury, the eGFR may not accurately reflect actual GFR. Performed By: #### PT, CMP, CBCDIF ####[facility] [address] [place] [address] [phone] Glucose [Mass/Vol] 145 74-99 mg/dL High 10-31-2019 [facility] (10698) Comment: Result Comment: The [place] Diabetes Association (ADA) provides guidance for cutoff values for fasting glucose and random glucose. The ADA defines fasting as no caloric intake for at least 8 hours. Fas ting plasma glucose results between 100 to 125 mg/dL indicate increased risk for diabetes (prediabetes). Fasting plasma glucose resul ts greater than or equal to 126 mg/dL meet the criteria for diagnosis of diabetes. In the absence of unequivocal hyperglycemia, results should be confirmed by repeat testing. In a patient with classic s ymptoms of hyperglycemia or hyperglycemic crisis, random plasma glucose results greater than or equal to 200 mg/dL meet the criteria for diagnosis of diabetes. Reference: Standards of [facility] Care in Diabetes 2016, [place] [employer] Association. Diabetes Care. 2016.39(Suppl 1). Performed By: #### PT CMP, CBCDIF ####[place] [address] [place] [address] [phone] Potassium [Moles/Vol] 3.4 3.7-5.1 mmol/L Low 10-31-19 20 [facility] (63346) Comment: Performed By: #### PT CMP, CBCDIF ####[place] [address] [place] [address] [phone] Protein [Mass/Vol] 5.5 6.3-8.0 g/dL Low 10-31-2019 [facility] (72330) Comment: Performed By: #### PT, CMP, CBCDIF ####[facility] [address] [place] [address] [phone] Sodium [Moles/Vol] 146 136-144 mmol/L High 10-31-2019 [facility] (54490) Comment: Performed By: #### PT, CMP, CBCDIF ####[facility] [place] [address] [phone] Urea nitrogen [Mass/Vol] 41 9-24 mg/dL High 10-30 [facility] (95424) Comment: Performed By: #### PT, CMP, CBCDIF ####[place] [address] [place] [address] [phone] cbc and differential on 2019-10-31 Abs Baso 0.00 <0.11 k/uL Normal 10-31-2019 [facility] (12848) Comment: Performed By: #### PT, CMP, CBCDIF ####[place] [address] [place] [address] [phone] Abs Canadian 0.37 <0.87 k/uL Normal 10-31-2019 [facility] (45963) Comment: Performed By: #### PT, CMP, CBCDIF ####[place] [address] [place] [address] [phone] Abs Neut 6.69 1.45-7.50 k/uL Normal 10-31-2019 [facility] (86551) Comment: Performed By: #### PT, CMP, CBCDIF ####[place] [address] [place] [address] [phone] Absolute nRBC 1.10 <0.01 k/uL High 10-31-2019 [facility] (79977) Comment: Performed By: #### PT, CMP, CBCDIF ####[place] [address] [place] [address] [phone] ANC(includeSEG+BAND) 6.69 k/uL Normal 0 [facility] (50350) Comment: Performed By: #### PT, CMP, CBCDIF ####[place] [address] [address] [phone] Anisocytosis Ql (Bld) Present Normal 10-31-19 20 [facility] (52680) Comment: Performed By: #### PT, CMP, CBCDIF ####[place] [address] [address] [place] [address] [phone] Basophils/100 WBC (Bld) 0.0 % Normal 2019 [facility] (62041) Comment: Performed By: #### PT, CMP, CBCDIF ####[place] [address] [place] [address] [phone] DTYPE Manual Diff Normal 10-31-2019 [facility] (83087) Comment: Performed By: #### PT, CMP, CBCDIF ####[place] [address] [place] [address] [phone] Eosinophils (Bld) [#/Vol] 0.09 <0.46 k/uL Normal 10-12 [facility] (40729) Comment: Performed By: #### PT, CMP, CBCDIF ####[place] [address] [address] [place] [address] [phone] Eosinophils/100 WBC (Bld) 1.0 % Normal 10-12 [facility] (58600) Comment: Performed By: #### PT, CMP, CBCDIF ####[address] [place] [address] Erythrocyte distribution 29.2 11.5-15.0 % High 10-30 [facility] width (RBC) [Ratio] [place] (49123) Comment: Performed By: #### PT, CMP, CBCDIF ####[address] [place] [address] Hematocrit (Bld) [Volume 25.4 39.0-51.0 % Low 10-30 [facility] fraction] (60721) Comment: Performed By: #### PT, CMP, CBCDIF ####[place] [address] [address] [place] [address] Hemoglobin (Bld) 7.2 13.0-17.0 g/dL Low 10-31-2019 [facility] [Mass/Vol] [place] (96298) Comment: Performed By: #### PT, CMP, CBCDIF ####[place] [address] [address] [place] [address] [phone] Lymphocytes (Bld) [#/Vol] 1.74 1.00-4.00 k/uL Normal 10-12 [facility] (14606) Comment: Performed By: #### PT, CMP, CBCDIF ####[place] [address] [phone] Lymphocytes/100 WBC (Bld) 19.0 % Normal 10-12 [facility] (95342) Comment: Performed By: #### PT, CMP, CBCDIF ####[place] [address] [phone] MCH (RBC) [Entitic mass] 22.9 26.0-34.0 pG Low 10-30 [facility] (51955) Comment: Performed By: #### PT, CMP, CBCDIF ####[place] [address] [phone] MCHC (RBC) [Mass/Vol] 28.3 30.5-36.0 g/dL Low 10-31-19 [facility] (35417) Comment: Performed By: #### PT, CMP, CBCDIF ####[address] [place] [address] [phone] MCV (RBC) [Entitic vol] 80.9 80.0-100.0 fL Normal 10-30 [facility] (69056) Comment: Performed By: #### PT, CMP, CBCDIF ####[place] [address] [address] [place] [address] [phone] Pegram% 3.0 % Normal 10-31-2019 [facility] (65886) Comment: Performed By: #### PT, CMP, CBCDIF ####[address] [place] [address] [phone] Monocytes/100 WBC (Bld) 4.0 % Normal 2019 [facility] (71578) Comment: Performed By: #### PT, CMP, CBCDIF ####[place] [address] [address] [place] [address] [phone] Neutrophils/100 WBC (Bld) 73.0 % Normal 10-12 [facility] (38488) Comment: Performed By: #### PT, CMP, CBCDIF ####[place] [address] [address] [place] [address] [phone] NRBCs 12 0 /100 WBC High 10-31-2019 [facility] (89003) Comment: Performed By: #### PT, CMP, CBCDIF ####[address] [place] [address] [phone] Ovalocytes Few Normal 10-31-2019 [facility] (34319) Comment: Performed By: #### PT, CMP, CBCDIF ####[address] [place] [address] [phone] Platelet mean <<DO NOT REPORT>> 9.0-12.7 Normal 10-31-19 20 [facility] volume (Bld) [place] (68269) [Entitic vol] Comment: Performed By: #### PT, CMP, CBCDIF ####[place] [address] [phone] Platelets (Bld) [#/Vol] 41 150-400 k/uL Low 2019 [facility] (02775) Comment: Result Comment: Result check ed and verified No clot detected. Performed By: #### PT, CMP, CBCDIF ####[address] [place] [address] [phone] Platelets (Bld) Platelet estimate Normal 2019 [facility] [#/Vol] decreased [place] (78018) Comment: Performed By: #### PT, CMP, CBCDIF ####[address] [place] [address] [phone] Polychromasia Slight Normal 10-31-2019 [facility] (15508) Comment: Performed By: #### PT, CMP, CBCDIF ####[place] [address] [phone] RBC (Bld) [#/Vol] 3.14 4.20-6.00 m/uL Low 10-31-2019 [facility] (79054) Comment: Performed By: #### PT, CMP, CBCDIF ####[address] [address] [place] [address] [phone] RBC Fragments Few Normal 10-31-2019 [facility] ([id number]) Comment: Performed By: #### PT, CMP, CBCDIF ####[place] [address] [phone] TSH Qn Present Normal 10-31-2019 [facility] ([id number]) Comment: Performed By: #### PT, CMP, CBCDIF ####[place] [address] [phone] WBC (Bld) [#/Vol] 9.17 3.70-11.00 k/uL Normal 10-31-2019 [facility] ([id number]) Comment: Performed By: #### PT, CMP, CBCDIF ####[place] [address] [phone] blood culture on 31-10-18 Bacteria identified Cx Culture Result - No Normal 10-31-2019 [facility] (Bld) growth 5 days [place] and ([address]15) Comment: Performed By: #### BLCUL ### [address] [id number] [phone] cr-chest 1 view (portable) import on 2019-10-30 CR-Chest 1 View Images were obtained outside of [facility] Normal 10-30-2019 [facility] (Portable) IMPORT [id number] [place] ([id number]) cnpn on 2019-10-29 CNPN Telephone (RADTMN) Normal 10-29-2019 [place] [facility] TANYATIANA ([id number]) 1940 M [place] Date Time Provider Department ([id number]) 10/29/19 CARMELO ROSEN (RN) RADSARAN During your visit today, we recorded the following informati on about you: Carmelo Rosen, RN, RN 10/29/2019 4:37 PM Signed Called and spoke with Tiana Gutierrez, answered question regarding CT brain. Informed him that the report is normal. The brain has normal aging. e vidence of dementia. He was grateful for the call. 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 ROPINIROLE 3 MG TABLET Take 3 mg by mouth daily at b* FUROSEMIDE 20 MG TABLET Take 20 mg by mouth every oth* TRELEGY ELLIPTA INHALATION Inhale as instructed once seth* LATANOPROST 0.005 % EYE DROPS 1 Drop daily at bedtime. MULTIVITAMIN CAPSULE Take 1 capsule by mouth once * EPINEPHRINE 0.3 MG/0.3 ML INJ* Inject 0.3 mg intramuscularly * ALBUTEROL SULFATE HFA 90 MCG/* Inhale 2 Puffs as instructed * ADULT ASPIRIN EC LOW STRENGTH* Take one(1) tablet daily. LIPITOR 10 MG TABLET Take one(1) tablet daily. Problem List As Of Date 10/29/2019 Noted Resolved DIVERTICULOSIS OF COLON W/O BLEED [K57.30] GASTROINTEST HEMORR NOS [K92.2] EXT HEMORRHOID W/O COMPL [K64.4] INT HEMORRHOID W/O COMPL [K64.8] ELEVATED PROSTATE SPECIFIC ANTIGEN [R97.20] 08/01/2007 BPH W/O URINARY OBS/LUTS [N40.0] 08/01/2007 Lung nodule [R91.1] 01/13/2016 Malignant neoplasm of upper lobe of right lung *05/21/2016 Emphysema of lung (HCC) [J43.9] 07/21/2016 Encounter Status:Closed by CARMELO ROSEN on 10/29/19 cnpn on 2019-10-21 CNPN Telephone (RADTMN) Normal 10-21-2019 [place] [facility] MARTÍNEZTIANA ([id number]) 1940 [facility] Time Provider Department () 10/21/19 CARMELO ROSEN (RN) RADTMN During your visit today, we recorded the following informati on about you: Carmelo Rosen RN, RN 10/21/2019 3:48 PM Signed Called and spoke with Tiana, patient's son. He had called ear lier with questions regarding what his father coul d and could not eat/take on the day of the PET scan. Gave him this information: PET IMAGING THY The Day prior to your examination: Eat a low carbohydrate, high protein dinner and continue all medications unless otherwise notified. Hydrate with at least 5 glasses of water and avoid strenuous exercise. The day of the examination: No food or drink 6 hours prior to your appointment. This includes gum, mints, and hard candy. Avoid strenuous exercise prior to the examination. Non-Diabetic patients may take oral medications with water according to their regular schedule. Allergies As of Date: 10/21/2019 Noted Allergy Reaction BEES 08/01/2007 Date Reviewed: 06/14/2019 Reviewed by: Cesilia Kiser - Fully Assessed Reason for Visit: Director Institution - Other [3601] Cmt: PET scan questions Prescriptions as of 10/21/2019 Sig: ELIQUIS 5 MG TABLET Take 5 mg by mouth twice madyson* TOPROL XL 50 MG TABLET,EXTEND* Take 50 mg by mouth once madyson * OMEPRAZOLE 20 MG CAPSULE,DINORA* Take 40 mg by mouth once madyson * OLMESARTAN 5 MG TABLET Take 5 mg by mouth once daily. ROPINIROLE 3 MG TABLET Take 3 mg by mouth daily at b* FUROSEMIDE 20 MG TABLET Take 20 mg by mouth every oth* TRELEGY ELLIPTA INHALATION Inhale as instructed once seth* LATANOPROST 0.005 % EYE DROPS 1 Drop daily at bedtime. MULTIVITAMIN CAPSULE Take 1 capsule by mouth once * EPINEPHRINE 0.3 MG/0.3 ML INJ* Inject 0.3 mg intramuscularly * ALBUTEROL SULFATE HFA 90 MCG/* Inhale 2 Puffs as instructed * ADULT ASPIRIN EC LOW STRENGTH* Take one(1) tablet daily. LIPITOR 10 MG TABLET Take one(1) tablet daily. Problem List As Of Date 10/21/2019 Noted Resolved DIVERTICULOSIS OF COLON W/O BLEED [K57.30] GASTROINTEST HEMORR NOS [K92.2] EXT HEMORRHOID W/O COMPL [K64.4] INT HEMORRHOID W/O COMPL [K64.8] ELEVATED PROSTATE SPECIFIC ANTIGEN [R97.20] 08/01/2007 BPH W/O URINARY OBS/LUTS [N40.0] 08/01/2007 Lung nodule [R91.1] 01/13/2016 Malignant neoplasm of upper lobe of right lung *05/21/2016 Emphysema of lung (HCC) [J43.9] 07/21/2016 Encounter Status:Closed by CARMELO ROSEN on 10/21/19 cnpn on 2019-10-20 [facility] (Space ApeN) Normal 10-20-2019 [place] [facility] TIANA MARTÍNEZ ([id number]) 1940 M [place] Date Time Provider Department () 10/20/19 CARMELO ROSEN (RN) PATRIZIA During your visit today, we recorded the following informati on about you: Carmelo Rosen, RN, RN 10/20/2019 1:35 PM Signed Called and spoke with Tiana, patient's so n. His father was in the hospital over the weekend to rule out stroke(ruled out). He was having fareed lucinations, slurred speech and difficulty walking. This has improved wit h medication changes. During his hospitalization they did a ch est xray for increased cough. And a CT chest. He has a new spiculated mass in the Left lung. I informed Tiana that Dr. Sanchez ordered a PET scan. Plan is to get PET and see Dr. Sanchez on the same day for results. Tiana was in ag reement. I spoke with Dixie in scheduling, request for PET was sent . Allergies As of Date: 10/20/2019 Noted Allergy Reaction BEES 08/01/2007 Date Reviewed: 06/14/2019 Reviewed by: Cesilia Kiser - Fully Assessed Reason for Visit: Director Institution - Other [8787] Cmt: needs appt. to follow up on OSH findings Prescriptions as of 10/20/2019 Sig: ELIQUIS 5 MG TABLET Take 5 mg by mouth twice madyson* TOPROL XL 50 MG TABLET,EXTEND* Take 50 mg by mouth once madyson * OMEPRAZOLE 20 MG CAPSULE,DINORA* Take 40 mg by mouth once madyson * OLMESARTAN 5 MG TABLET Take 5 mg by mouth once daily. ROPINIROLE 3 MG TABLET Take 3 mg by mouth daily at b* FUROSEMIDE 20 MG TABLET Take 20 mg by mouth every oth* TRELEGY ELLIPTA INHALATION Inhale as instructed once seth* LATANOPROST 0.005 % EYE DROPS 1 Drop daily at bedtime. MULTIVITAMIN CAPSULE Take 1 capsule by mouth once * EPINEPHRINE 0.3 MG/0.3 ML INJ* Inject 0.3 mg intramuscularly * ALBUTEROL SULFATE HFA 90 MCG/* Inhale 2 Puffs as instructed * ADULT ASPIRIN EC LOW STRENGTH* Take one(1) tablet daily. LIPITOR 10 MG TABLET Take one(1) tablet daily. Problem List As Of Date 10/20/2019 Noted Resolved DIVERTICULOSIS OF COLON W/O BLEED [K57.30] GASTROINTEST HEMORR NOS [K92.2] EXT HEMORRHOID W/O COMPL [K64.4] INT HEMORRHOID W/O COMPL [K64.8] ELEVATED PROSTATE SPECIFIC ANTIGEN [R97.20] 08/01/2007 BPH W/O URINARY OBS/LUTS [N40.0] 08/01/2007 Lung nodule [R91.1] 01/13/2016 Malignant neoplasm of upper lobe of right lung *05/21/2016 Emphysema of lung (HCC) [J43.9] 07/21/2016 Encounter Status:Closed by CARMELO ROSEN on 10/20/19 CNPN Telephone (Magma GlobalN) Normal 10-20-2019 [place] [facility] TIANA MARTÍNEZ ([id number]) 1940 M [place] Date Time Provider Department ([id number]) 10/20/19 SAM SANCHEZ RADMIMI During your visit today, we recorded the following informati on about you: Dixie Harrell [facility] 10/20/2019 1:27 PM Signed This form is used for MAIN CAMPUS APPOINTMENTS ONLY. Is this request for a Main [place] PET sc an appointment? Yes: Flue Cleaner: Dixie Harrell Pss Requesting Person DIXIE HARRELL: 216 Area Code + Phone/Page r: [phone] Who do we call to schedule this appointment? Patient Requesting Staff LES Area Code + Phone/Pager: N/A PET Orders (A delay in scheduling will r esult if the orders are not present at time of review): Internal ADDITIONAL ACTION MAY BE REQUIRED IF PATIENTS OON INSURANCE OR SELF PAY COVERAGE HAS NOT BEEN CLEARED FOR REQUESTED APPOINTMENT. Scheduling: CB: As soon as insurance will allow What account will this PET appointment be linked to? P/F Type of PET: Oncology: Are there additio nal diagnostic CT scans required to be done at time of PET scan? No Is the request for a PET MR ? No What account will diagnostic testing appointment be linked t o? P/F Will this patient be admitted for testing? No Will the patient need anesthesia? No Send requests to P COORD REVIEW Kayla Abreu, RN, RN 10/20/2019 1:40 PM Signed Authorization number: No Pre-cert Required Authorization date range: No Pre-cert Required Primary Insurance: Medicare Diagnosis: Malignant neoplasm of upper lobe of right lung (H CC) [C34.11] DX Imaging: CT/CTA: 12-24-2018 CT Chest and PET Scan: 06-01-2018 CT during in house October 2019 CT chest. He has a new spiculated mass in th e Left lung. 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 Allergies As of Date: 10/20/2019 Noted Allergy Reaction BEES 08/01/2007 Date Reviewed: 06/14/2019 Reviewed by: Cesilia Kiser - Fully Assessed Reason for Visit: Nm Pet Request [[id number]] Prescriptions as of 10/20/2019 Sig: ELIQUIS 5 MG TABLET Take 5 mg by mouth twice madyson* TOPROL XL 50 MG TABLET,EXTEND* Take 50 mg by mouth once madyson * OMEPRAZOLE 20 MG CAPSULE,DINORA* Take 40 mg by mouth once madyson * OLMESARTAN 5 MG TABLET Take 5 mg by mouth once daily. ROPINIROLE 3 MG TABLET Take 3 mg by mouth daily at b* FUROSEMIDE 20 MG TABLET Take 20 mg by mouth every oth* TRELEGY ELLIPTA INHALATION Inhale as instructed once seth* LATANOPROST 0.005 % EYE DROPS 1 Drop daily at bedtime. MULTIVITAMIN CAPSULE Take 1 capsule by mouth once * EPINEPHRINE 0.3 MG/0.3 ML INJ* Inject 0.3 mg intramuscularly * ALBUTEROL SULFATE HFA 90 MCG/* Inhale 2 Puffs as instructed * ADULT ASPIRIN EC LOW STRENGTH* Take one(1) tablet daily. LIPITOR 10 MG TABLET Take one(1) tablet daily. Problem List As Of Date 10/20/2019 Noted Resolved DIVERTICULOSIS OF COLON W/O BLEED [K57.30] GASTROINTEST HEMORR NOS [K92.2] EXT HEMORRHOID W/O COMPL [K64.4] INT HEMORRHOID W/O COMPL [K64.8] ELEVATED PROSTATE SPECIFIC ANTIGEN [R97.20] 08/01/2007 BPH W/O URINARY OBS/LUTS [N40.0] 08/01/2007 Lung nodule [R91.1] 01/13/2016 Malignant neoplasm of upper lobe of right lung *05/21/2016 Emphysema of lung (HCC) [J43.9] 07/21/2016 Encounter Status:Closed by MANOLO FULLER on 10/21/19 [facility] on 2019-10-18 [facility] Tele[facility] (RADTMN) Normal 10-18-2019 [place] [facility] TIANA MARTÍNEZ ([id number]) 1940 M [facility] Time Provider Department ([id number]) 10/18/19 OLIVER SCHUMACHER (RES) RADTMN During your visit today, we recorded the following informati on about you: Oliver Schumacher MD, MD 10/18/2019 1:44 PM Signed Received meet-me line call from Tiana Martínez's son. The patient presented to [facility] yesterday with AMS. Workup revealed a new l eft lung mass suspicious for a new primary lung cancer vs metastasis of hi s previously treated lung cancer. The patient will ob tain imaging and radiology reports and send to Dr. Sanchez' office. Dr. Sanchez and team notified . Oliver Schumacher MD Radiation Oncology Resident [id number] Allergies As of Date: 10/18/2019 Noted Allergy Reaction BEES 08/01/2007 Date Reviewed: 06/14/2019 Reviewed by: Cesilia Kiser - Fully Assessed Reason for Visit: Cancer [19] Prescriptions as of 10/18/2019 Sig: ELIQUIS 5 MG TABLET Take 5 mg by mouth twice madyson* TOPROL XL 50 MG TABLET,EXTEND* Take 50 mg by mouth once madyson * OMEPRAZOLE 20 MG CAPSULE,DINORA* Take 40 mg by mouth once madyson * OLMESARTAN 5 MG TABLET Take 5 mg by mouth once daily. ROPINIROLE 3 MG TABLET Take 3 mg by mouth daily at b* FUROSEMIDE 20 MG TABLET Take 20 mg by mouth every oth* TRELEGY ELLIPTA INHALATION Inhale as instructed once seth* LATANOPROST 0.005 % EYE DROPS 1 Drop daily at bedtime. MULTIVITAMIN CAPSULE Take 1 capsule by mouth once * EPINEPHRINE 0.3 MG/0.3 ML INJ* Inject 0.3 mg intramuscularly * ALBUTEROL SULFATE HFA 90 MCG/* Inhale 2 Puffs as instructed * ADULT ASPIRIN EC LOW STRENGTH* Take one(1) tablet daily. LIPITOR 10 MG TABLET Take one(1) tablet daily. Problem List As Of Date 10/18/2019 Noted Resolved DIVERTICULOSIS OF COLON W/O BLEED [K57.30] GASTROINTEST HEMORR NOS [K92.2] EXT HEMORRHOID W/O COMPL [K64.4] INT HEMORRHOID W/O COMPL [K64.8] ELEVATED PROSTATE SPECIFIC ANTIGEN [R97.20] 08/01/2007 BPH W/O URINARY OBS/LUTS [N40.0] 08/01/2007 Lung nodule [R91.1] 01/13/2016 Malignant neoplasm of upper lobe of right lung *05/21/2016 Emphysema of lung (HCC) [J43.9] 07/21/2016 Encounter Status:Closed by OLIVER SCHUMACHER MD on 10/18/19 cnpn on 2019-09-01 CNPN Telephone ([employer]) Normal 09-01-2019 [place] [facility] TIANA MARTÍNEZ ([id number]) 1940 [facility] Date Time Provider Department ([id number]) 09/01/19 CARMELO ROSEN (RN) PATRIZIA During your visit today, we recorded the following informati on about you: Carmelo Rosen RN, RN 09/01/2019 1:47 PM Signed Returned call to Mr. Martínez's son, Tiana. He was concerned about some lab work his father had done at an OSH (unrelated to his radiation tr eatment). Per report: Faint band in gamma region suspicious for mono clonal immunoglobulin. May represent a benign spike as seen in older people or could be a paraprotein as seen in MM, Waldenstrom?s Macroglobulinemia or Lymphoma. His PCP had instructed him to inform his oncologist, he call ed us. I clarified that while Dr. Sanchez is a Radiation oncologist, he would need a sd dical oncologist. Dr. Sanchez recommended Dr. Nancy Kruse. After fu rther discussion, Tiana decided that he would wait to take his father for repeat lab s in Jan. If those labs are going the wrong direction he will ask his f ather's PCP to place the referral to see Dr. Kruse. Allergies As of Date: 09/01/2019 Noted Allergy Reaction BEES 08/01/2007 Date Reviewed: 06/14/2019 Reviewed by: Cesilia Kiser - Fully Assessed Reason for Visit: Director Institution - Other [9372] Cmt: OSH lab results Prescriptions as of 09/01/2019 Sig: ELIQUIS 5 MG TABLET Take 5 mg by mouth twice madyson* TOPROL XL 50 MG TABLET,EXTEND* Take 50 mg by mouth once madyson * OMEPRAZOLE 20 MG CAPSULE,DINORA* Take 40 mg by mouth once madyson * OLMESARTAN 5 MG TABLET Take 5 mg by mouth once daily. ROPINIROLE 3 MG TABLET Take 3 mg by mouth daily at b* FUROSEMIDE 20 MG TABLET Take 20 mg by mouth every oth* TRELEGY ELLIPTA INHALATION Inhale as instructed once steh* LATANOPROST 0.005 % EYE DROPS 1 Drop daily at bedtime. MULTIVITAMIN CAPSULE Take 1 capsule by mouth once * EPINEPHRINE 0.3 MG/0.3 ML INJ* Inject 0.3 mg intramuscularly * ALBUTEROL SULFATE HFA 90 MCG/* Inhale 2 Puffs as instructed * ADULT ASPIRIN EC LOW STRENGTH* Take one(1) tablet daily. LIPITOR 10 MG TABLET Take one(1) tablet daily. Problem List As Of Date 09/01/2019 Noted Resolved DIVERTICULOSIS OF COLON W/O BLEED [K57.30] GASTROINTEST HEMORR NOS [K92.2] EXT HEMORRHOID W/O COMPL [K64.4] INT HEMORRHOID W/O COMPL [K64.8] ELEVATED PROSTATE SPECIFIC ANTIGEN [R97.20] 08/01/2007 BPH W/O URINARY OBS/LUTS [N40.0] 08/01/2007 Lung nodule [R91.1] 01/13/2016 Malignant neoplasm of upper lobe of right lung *05/21/2016 Emphysema of lung (HCC) [J43.9] 07/21/2016 Encounter Status:Closed by CARMELO ROSEN on 09/01/19 cnpn on 2019-07-02 CNPN Telephone (RGMOB) Normal 07-02-2019 [place] [facility] TIANA MARTÍNEZ ([id number]) 1940 [facility] Date Time Provider Department () 07/02/19 KATHY RAMIREZ V RGNDB During your visit today, we recorded the following informati on about you: Nohelia Ardon 07/02/2019 11:59 AM Signed Patient requested all radiology records be recorded on a dis c. Shy Alvarado [facility] 07/02/2019 4:02 PM Signed CD READY FOR DESIGN TECHNOLOGY PROFESSOR AT [facility] RADIOLOGY CD READY FOR DESIGN TECHNOLOGY PROFESSOR AT [facility] RADIOLOGY Allergies As of Date: 07/02/2019 Noted Allergy Reaction BEES 08/01/2007 Date Reviewed: 06/14/2019 Reviewed by: Cesilia Kiser - Fully Assessed Reason for Visit: Disc [Other] Prescriptions as of 07/02/2019 Sig: ELIQUIS 5 MG TABLET Take 5 mg by mouth twice madyson* TOPROL XL 50 MG TABLET,EXTEND* Take 50 mg by mouth once madyson * OMEPRAZOLE 20 MG CAPSULE,DINORA* Take 40 mg by mouth once madyson * OLMESARTAN 5 MG TABLET Take 5 mg by mouth once daily. ROPINIROLE 3 MG TABLET Take 3 mg by mouth daily at b* FUROSEMIDE 20 MG TABLET Take 20 mg by mouth every oth* TRELEGY ELLIPTA INHALATION Inhale as instructed once seth* LATANOPROST 0.005 % EYE DROPS 1 Drop daily at bedtime. MULTIVITAMIN CAPSULE Take 1 capsule by mouth once * EPINEPHRINE 0.3 MG/0.3 ML INJ* Inject 0.3 mg intramuscularly * ALBUTEROL SULFATE HFA 90 MCG/* Inhale 2 Puffs as instructed * ADULT ASPIRIN EC LOW STRENGTH* Take one(1) tablet daily. LIPITOR 10 MG TABLET Take one(1) tablet daily. Problem List As Of Date 07/02/2019 Noted Resolved DIVERTICULOSIS OF COLON W/O BLEED [K57.30] GASTROINTEST HEMORR NOS [K92.2] EXT HEMORRHOID W/O COMPL [K64.4] INT HEMORRHOID W/O COMPL [K64.8] ELEVATED PROSTATE SPECIFIC ANTIGEN [R97.20] 08/01/2007 BPH W/O URINARY OBS/LUTS [N40.0] 08/01/2007 Lung nodule [R91.1] 01/13/2016 Malignant neoplasm of upper lobe of right lung *05/21/2016 Emphysema of lung (HCC) [J43.9] 07/21/2016 Encounter Status:Closed by NOHELIA ARDON on 08/11/19 progress on 2019-05 PROGRESS HNO ID: [id number] Normal 06-11-2019 [facility] Author: Cesilia Kiser [place] Service: ? ([id number]) Author Type: Physician Type: Progress Notes Filed: 06/14/2019 1:52 PM Note Text: Tiana Martínez 1940 ? ? REFERRING PHYSICIAN: MD Jayden CHIEF COMPLAINT: left inguinal hernia. ? HPI: The patient is a 79 year old male who has known left in guinal hernia. He states that he is having minimal pain in the area at pres ent. Given the minimal symptoms and his medical co-morbidities, s urgical repair of hernia is elective. He has severe COPD with unresectable lung cancer - s/p radia tion therapy - in remission at present. ? ? PAST MEDICAL HISTORY Diagnosis Date - Atrial fibrillation (HCC) ? - Basal cell carcinoma of face ? ? 5 total areas [id number] - COPD (chronic obstructive pulmonary disease) (HCC) ? - CVA (cerebral vascular accident) (HCC) 2013 ? opitical nerve residual R vision loss - Diverticulosis of colon (without mention of hemorrhage) ? - DM (diabetes mellitus) (HCC) ? - Hemorrhage of gastrointestinal tract, unspecified ? - Hypercholesteremia ? - Lung cancer (HCC) ? - Sebaceous cyst ? ? knee - Sebaceous cyst ? ? arm pit - Sebaceous cyst ? ? back Right eye blindness ? ? PAST SURGICAL HISTORY Procedure Laterality Date - COLONOSCOP W/ OR W/O BRSH SPEC ? 06/14/07 ? [facility] inpt [facility]UR[facility] Right knee surgery Eye surgery ? ? Current Outpatient Medications Medication Sig - ELIQUIS 5 mg tab(s) Take 5 mg by mouth twice daily. - TOPROL XL 50 mg 24 hr tablet Take 50 mg by mouth once madyson y. - omeprazole (PRILOSEC) 20 mg capsule Take 40 mg by mouth on ce daily. - olmesartan (BENICAR) 5 mg tablet Take 5 mg by mouth once d aily. - rOPINIRole Hydrochloride 3 mg tablet Take 3 mg by mouth da maicol at bedtime. - furosemide (LASIX) 20 mg tablet Take 20 mg by mouth every other day. - fluticasone/umeclidin/vilanter (TRELEGY ELLIPTA INHALATION ) Inhale as instructed once daily. - latanoprost (XALATAN) 0.005 % ophthalmic solution 1 Drop d aily at bedtime. - Multivitamin capsule Take 1 capsule by mouth once daily. - EPINEPHrine (EPIPEN 2-ANUEL) 0.3 mg/0.3 mL auto-injector Inj ect 0.3 mg intramuscularly as needed. - albuterol HFA (PROAIR HFA) 90 mcg/actuation inhaler Inhale 2 Puffs as instructed as needed. - aspirin(ADULT ASPIRIN EC LOW STRENGTH 81 MG TAB, DELAYED R ELEASE) Take one(1) tablet daily. - atorvastatin calcium(LIPITOR 10 MG TAB) Take one(1) tablet daily. ? ? ALLERGIES: Bees ? PERSONAL HISTORY: Social History ? Tobacco Use - Smoking status: Current Every Day Smoker ? ? Packs/day: 0.50 ? ? Years: 50.00 ? ? Pack years: 25.00 ? ? Types: Cigarettes - Smokeless tobacco: Never Used Substance Use Topics - Alcohol use: No - Drug use: No FAMILY HISTORY Problem Relation Age of Onset - Emphysema Mother ? - Heart disease Mother ? - Hypertension Mother ? - Stroke Mother ? - Heart Father ? - Alcohol/Drug Father ? - Hypertension Father ? - Stroke Father ? - Breast Cancer Sister ? - None Sister ? ? ? Nursing Notes: Kaia East RN 04/24/2019 1:56 PM Signed REVIEW OF SYSTEMS: General: The patient notes fatigue, denies weight loss, mikael es weight gain, denies feeling hot, and denies feelings of cold . Eyes: The patient notes glaucoma, notes eye injury/surgery, wears glasses or contacts. Ear/Nose/Throat: The patient notes allergies, notes hayfever , denies ear infections, and denies bloody noses. Cardiovascular: The patient notes chest pain, notes heart di sease, notes high blood pressure,denies cardiac stent, denies prior heart attack, notes irregular heart beat, notes high cholesterol, denies p oor circulation, notes heart failure, other cardiac issues, mikael es claudication, denies cold feet, denies peripheral arterial s tent. Respiratory: The patient denies tuberculosis, notes pneumoni a, notes frequent cough, denies pulmonary embolism, notes shortness o f breath, and denies coughing up blood. Gastrointestinal: The patient denies difficulty swallowing, denies acid reflux, denies ulcers, denies vomiting, denies jaundice /hepatitis, denies gallbladder problems, denies black or tarry stools, n otes hemorrhoids, notes bleeding from rectum, last colonoscopy 31 12, denies diverticulitis, denies constipation, notes diarrhea, denies loss of stool control, and notes hernias. Kidney/Bladder: The patient notes kidney stones, notes urine infections, and notes bloody urine. Skin: history of skin cancer - basal cell, denies bleeding/c hanging moles, and denies a history of skin rash. Neurologic: The patient denies a history of epilepsy/convuls ions, notes headaches, denies head/spinal injuries, and notes stro ke/TIA. Psychiatric: The patient denies psychiatric medications, den ies depression, and denies voices, denies substance abuse. Endocrine: The patient notes thyroid disorders, notes diabet es, and denies hormonal problems. Hematologic: The patient denies a history of bruising, notes bleeding, and denies anemia, denies blood clots. Infections: The patient notes a history of measles and mumps , denies rheumatic fever, and denies sexually transmitted diseases. Musculoskeletal: The patient notes back pain/injury, notes b ack problems, notes sciatica, denies knee/foot trouble, notes ar thritis, or denies gout. ? PHYSICAL EXAMINATION: General: The patient is 79 year old male, well nourished, we ll hydrated in no acute distress. The patient is oriented to time, place , and person. VITALS: Blood pressure 154/70, pulse 88, temperature 36.7 ?C (98 ?F), temperature source Temporal Artery, height 175.3 cm (5' 9), weight 88.5 kg (195 lb), SpO2 94 %. Body mass index is 28.8 kg/m?. Head ? Normocephalic. EOM intact with sclera clear and no ic terus noted. Wearing glasses. Mouth with mucus membranes moist. Neck - supple with no jugular venous distention noted. Trach ea is midline. No carotid bruits noted. No masses noted. Lungs ? clear to auscultation.. Normal breath sounds No rales/rhonchi/wheezing noted. No labored breathing noted, stanford ch as retractions. No cough heard. Heart ? normal S1 and S2 auscultated. No rubs/clicks/murmurs noted. Regular rate. Abdomen ? soft and benign. Normal bowel sounds. No abdominal bruits noted. No distention noted. Genitalia ? normal male phallus, testes in normal anatomical position and no masses noted, bilateral inguinal hernias noted with left greater than right - reducible Extremities ? no calf tenderness noted. No pitting edema not ed. Skin ? normal skin integrity. Neurological ? gait normal, no focal deficits noted. Psych ? calm and appropriate ? ? IMPRESSION: left inguinal hernia - symptomatic ? PLAN: I have discussed the above with the patient. Patient with severe COPD, continues with TOB use, with known unresectable lung cancer s/p radiation therapy, presently no increase in growth noted. We had discussed surgical repair of his inguinal hernia in t he past encounter - this can be done using MAC/local anesthesia. He had questioned in the past - why he could not have laparo scopic and/or robotic surgery and I had explained to the patient that such general anesthesia would not be an options due to his lung disease. He is presently having minimal discomfort from his hernia, g iven his medical morbidities, surgery is elective. He defers surgery for now. I have [facility]. I have especially encouraged patient to consider surgery if any worsening signs/symptoms, he agress.? I have answered all questions to the patient?s satisfaction and the patient has no further questions. . Return to Clinic: The patient is instructed to follow-up wit h me as per needed. ? I have confirmed and edited as necessary, the PFS and TEO hood btained by others. ? Cesilia kohler on 2019-06-11 JOSE F Office Visit (TONY) Normal 06-11-[address] [place] [address] [facility] TIANA MARTÍNEZ ([id number]) 1940 [facility] Date Time Provider Department ([id number]) 06/11/19 1:10 PM CESILIA KISER During your visit today, we recorded the following informati on about you: Temperature Pulse Respiration Weight 97.7 degrees 86/minute 20/minute 90.7 kg Cesilia Kiser MD 06/14/2019 1:52 PM Signed Tiana Martínez 1940 ? ? REFERRING PHYSICIAN: MD Jayden CHIEF COMPLAINT: left inguinal hernia. ? HPI: The patient is a 79 year old male who has known left in guinal hernia. He states that he is having minimal pain in the area at pres ent. Given the minimal symptoms and his medical co-mo rbidities, surgical repair of hernia is elective. He has severe COPD with unresectable lung cancer - s/p radiation therapy - in remission at present. ? ? PAST MEDICAL HISTORY Diagnosis Date - Atrial fibrillation (HCC) ? - Basal cell carcinoma of face ? ? 5 total areas [id number] - COPD (chronic obstructive pulmonary disease) (HCC) ? - CVA (cerebral vascular accident) (HCC) 2013 ? opitical nerve residual R vision loss - Diverticulosis of colon (without mention of hemorrhage) ? - DM (diabetes mellitus) (HCC) ? - Hemorrhage of gastrointestinal tract, unspecified ? - Hypercholesteremia ? - Lung cancer (HCC) ? - Sebaceous cyst ? ? knee - Sebaceous cyst ? ? arm pit - Sebaceous cyst ? ? back Right eye blindness ? ? PAST SURGICAL HISTORY Procedure Laterality Date - [facility] inpt TURP Right knee surgery Eye surgery ? ? Current Outpatient Medications Medication Sig - ELIQUIS 5 mg tab(s) Take 5 mg by mouth twice daily. - TOPROL XL 50 mg 24 hr tablet Take 50 mg by mouth once madyson y. - omeprazole (PRILOSEC) 20 mg capsule Take 40 mg by mouth on ce daily. - olmesartan (BENICAR) 5 mg tablet Take 5 mg by mouth once d aily. - rOPINIRole Hydrochloride 3 mg tablet Take 3 mg by mouth daily at bedtime. - furosemide (LASIX) 20 mg tablet Take 20 mg by mouth every other day. - fluticasone/umeclidin/vilanter (TRELEGY ELLIPTA INHALATION ) Inhale as instructed once daily. - latanoprost (XALATAN) 0.005 % ophthalmic solution 1 Drop daily at bedtime. - Multivitamin capsule Take 1 capsule by mouth once daily. - EPINEPHrine (EPIPEN 2-ANUEL) 0.3 mg/0.3 mL auto-injector Inj ect 0.3 mg intramuscularly as needed. - albuterol HFA (PROAIR HFA) 90 mcg/actuation inhaler Inhale 2 Puffs as instructed as needed. - aspirin(ADULT ASPIRIN EC L OW STRENGTH 81 MG TAB, DELAYED RELEASE) Take one(1) tablet daily. - atorvastatin calcium(LIPITOR 10 MG TAB) Take one(1) tablet daily. ? ? ALLERGIES: Bees ? PERSONAL HISTORY: Social History ? Tobacco Use - Smoking status: Current Every Day Smoker ? ? Packs/day: 0.50 ? ? Years: 50.00 ? ? Pack years: 25.00 ? ? Types: Cigarettes - Smokeless tobacco: Never Used Substance Use Topics - Alcohol use: No - Drug use: No FAMILY HISTORY Problem Relation Age of Onset - Emphysema Mother ? - Heart disease Mother ? - Hypertension Mother ? - Stroke Mother ? - Heart Father ? - Alcohol/Drug Father ? - Hypertension Father ? - Stroke Father ? - Breast Cancer Sister ? - None Sister ? ? ? Nursing Notes: Kaia East RN 04/24/2019 1:56 PM Signed REVIEW OF SYSTEMS: General: The patient notes fatigue, denies weight loss, mikael es weight gain, denies feeling hot, and denies feelings of cold. Eyes: The patient notes glaucoma, notes eye injury/surgery, wears glasses or contacts. Ear/Nose/Throat: The patient notes allergies, notes hayfever , denies ear infections, and denies bloody noses. Cardiovascular: The patient notes chest pain, notes heart di sease, notes high blood pressure,denies cardiac stent, denies prior heart attack, notes irregular heart beat, notes high cholesterol, denies p oor circulation, notes heart failure, other cardiac issues, denies claudication, denies cold feet, denies peripheral arterial stent. Respiratory: The patient denies tuberculosis, notes pneumoni a, notes frequent cough, denies pulmonary embolism, notes shortness o f breath, and denies coughing up blood. Gastrointestinal: The patient denies difficulty swallowing, denies acid reflux, denies ulcers, denies vomiting, denies jaundice/hepa titis, denies gallbladder problems, denies black or tarry stools, no lanie hemorrhoids, notes bleeding from rectum, last colonoscopy 2007, denies divertic ulitis, denies constipation, notes diarrhea, denies los s of stool control, and notes hernias. Kidney/Bladder: The patient notes kidney stones, notes urine infections, and notes bloody urine. Skin: history of skin cancer - basal cell, denies bleeding/c hanging moles, and denies a history of skin rash. Neurologic: The patient denies a history of epilepsy/convuls ions, notes headaches, denies head/spinal injuries, and notes stroke/TIA . Psychiatric: The patient denies psychiatric medications, den ies depression, and denies voices, denies substance abuse. Endocrine: The patient notes thyroid disorders, notes diabet es, and denies hormonal problems. Hematologic: The patient denies a history of bruising, notes bleeding, and denies anemia, denies blood clots. Infections: The patient notes a history of measles and mumps , denies rheumatic fever, and denies sexually transmitted diseases. Musculoskeletal: The patient notes back pain/injury, notes b ack problems, notes sciatica, denies knee/foot trouble, notes arthritis, o r denies gout. ? PHYSICAL EXAMINATION: General: The patient is 79 year old male, well n ourished, well hydrated in no acute distress. The patient is oriented to time, place, and person. VITALS: Blood pressure 154/70, pulse 88, temperature 36.7 ?C (98 ?F), temperature source Temporal Artery, height 175.3 cm (5' 9 ), weight 88.5 kg (195 lb), SpO2 94 %. Body mass index is 28.8 kg/m?. Head ? Normocephalic. EOM intact with sclera clear and no ic terus noted. Wearing glasses. Mouth with mucus membranes moist. Neck - supple with no jugular venous distention noted. Trachea is midline. No carotid bruits noted. No masses noted. Lungs ? clear to auscultation.. Normal b reath sounds No rales/rhonchi/wheezing noted. No labored breathing noted, such as retractions. No c ough heard. Heart ? normal S1 and S2 auscultated. No rubs/clicks/murmu rs noted. Regular rate. Abdomen ? soft and benign. Normal bowel sounds. No abdominal bruits noted. No distention noted. Genitalia ? normal male phallus, testes in normal alen omical position and no masses noted, bilateral inguinal hernias noted w ith left greater than right - reducible Extremities ? no calf tenderness noted. No pitting edema not ed. Skin ? normal skin integrity. Neurological ? gait normal, no focal deficits noted. Psych ? calm and appropriate ? ? IMPRESSION: left inguinal hernia - symptomatic ? PLAN: I have discussed the above with the patient. Patient with severe COPD, continues with TOB use, with known unresectable lung cancer s/p radiation therapy, presently no increase in growt h noted. We had discussed surgical re pair of his inguinal hernia in the past encounter - this can be done using MAC/local anesthesia. He had questioned in the past - why he could not have laparo scopic and/or robotic surgery and I had ex plained to the patient that such general anesthesia would not be an options due to his lung disease. He is presently having minimal discomfort from his her edna, given his medical morbidities, surgery is elective. He defers surgery for now. I have counseled him to retu rn to the clinic at his convenience if he wishes to schedule for surgery. I have especially encouraged patient to consider surgery if any worsening signs/symptoms, he agress.? I have answered all question s to the patient?s satisfaction and the patient has no further questions. . Return to Clinic: The patien t is instructed to follow-up with me as per needed. ? I have confirmed and edited as necessary , the PFSH and ROS obtained by others. ? Cesilia Referring Provider: SELF [[id number]] Allergies As of Date: 06/11/2019 Noted Allergy Reaction BEES 08/01/2007 Date Reviewed: 06/11/2019 Reviewed by: Hiral Kaplan LPN - Fully Assessed Reason for Visit: Follow Up [171] Primary Visit Diagnosis:Left inguinal hernia [K40.90] Other Visit Diagnosis:Malignant neoplasm of upper lobe of ri ght lung (HCC) [C34.11] Prescriptions as of 06/11/2019 Sig: ELIQUIS 5 MG TABLET Take 5 mg by mouth twice madyson* TOPROL XL 50 MG TABLET,EXTEND* Take 50 mg by mouth once madyson * OMEPRAZOLE 20 MG CAPSULE,DINORA* Take 40 mg by mouth once madyson * OLMESARTAN 5 MG TABLET Take 5 mg by mouth once daily. ROPINIROLE 3 MG TABLET Take 3 mg by mouth daily at b* FUROSEMIDE 20 MG TABLET Take 20 mg by mouth every oth* TRELEGY ELLIPTA INHALATION Inhale as instructed once seth* LATANOPROST 0.005 % EYE DROPS 1 Drop daily at bedtime. MULTIVITAMIN CAPSULE Take 1 capsule by mouth once * EPINEPHRINE 0.3 MG/0.3 ML INJ* Inject 0.3 mg intramuscularly * ALBUTEROL SULFATE HFA 90 MCG/* Inhale 2 Puffs as instructed * ADULT ASPIRIN EC LOW STRENGTH* Take one(1) tablet daily. LIPITOR 10 MG TABLET Take one(1) tablet daily. Problem List As Of Date 06/11/2019 Noted Resolved DIVERTICULOSIS OF COLON W/O BLEED [K57.30] GASTROINTEST HEMORR NOS [K92.2] EXT HEMORRHOID W/O COMPL [K64.4] INT HEMORRHOID W/O COMPL [K64.8] ELEVATED PROSTATE SPECIFIC ANTIGEN [R97.20] 08/01/2007 BPH W/O URINARY OBS/LUTS [N40.0] 08/01/2007 Lung nodule [R91.1] 01/13/2016 Malignant neoplasm of upper lobe of right lung *05/21/2016 Emphysema of lung (HCC) [J43.9] 07/21/2016 Encounter Status:Closed by MD CESILIA KISER on 06/14/19 progress on 2019-05 PROGRESS HNO ID: [id number] Normal 05-26-2019 [facility] Author: Sam Sanchez [place] ([id number]) Service: ? Author Type: Physician Type: Progress Notes Filed: 05/26/2019 12:37 PM Note Text: Reviewed biopsy results demonstrating focally infarcted scar w/o tumor or granuloma. Appears to be technically adequate biopsy. Given benign appearing findings will continue with CT survei llance. Next scan in 6 months, if favorable findings may move to annual s chedule at that time. Sam Sanchez MD surgical pathology on 2019-05-20 SURGICAL Specimen originated from [facility] Normal 05-20-2019 [place] PATHOLOGY Specimen #: [id number] Clinic Submitting Physician: SIMI SAMPSON M.D. [place] ([id number]) FINAL DIAGNOSIS Lung, right upper lobe, needle biopsy - Fragments of scar (S ee comment). COMMENT The scar is focally infarcted. No granulomas or malignant ce lls are identified. Tam Courtney M.D. (Electronic Signature) SPECIMEN SUBMITTED A: RIGHT UPPER LOBE LUNG BIOPSY CLINICAL DATA LUNG CANCER GROSS DESCRIPTION A. Received in formalin are multiple segments of cylindrical tissue aggregating to 3.2 x 0.1 x 0.1 cm, lewis-brown to black and of a soft and friable consistency. Totally submitted in formalin in one ca ssette. Gross examination performed at [facility], [address] [place] [address] 05/20/2019 9:12:14 PM Date of Report: 05/21/2019 Date of Procedure: 05/20/2019 Date of Receipt: 05/20/2019 Submitted by: SIMI SAMPSON M.D. Additional Physician(s): SAM SANCHEZ MD Location: [facility] Diagnostic interpretation performed at [place] [address]. CLIA Number: [id number] pt ed on 2019-05-20 PT ED HNO ID: [id number] Normal 05-20-2019 [facility] Author: Abena JasmineRn) JUNIE Waters [place] ([id number]) Service: Radiology Author Type: Registered Nurse Type: Patient Education Filed: 05/20/2019 12:54 PM Note Text: AMBULATORY PATIENT EDUCATION NOTE TOPIC: CT guided right lung biopsy READINESS TO LEARN COGNITIVE ABILITY: Alert and oriented MOTIVATION TO LEARN: Interested FAMILY SUPPORT: Unable to assess - Family not present INSTRUCTION PROVIDED TO: Patient PATIENT LEARNS BEST BY: Individual Instruction FACTORS AFFECTING LEARNING: None PHYSICAL LIMITATIONS AFFECTING LEARNING: None LEARNING RESPONSE DIAGNOSIS: Lung nodule METHOD OF INSTRUCTION: Individual instruction PATIENT / FAMILY RESPONSE: Verbalizes understanding of: PRE- PROCEDURE INSTRUCTIONS-Correct action to take to follow pre-procedure instructions FOLLOW-UP PLAN: Patient instructed to call with any further issues SUPPLEMENTAL MATERIAL: None REFERRAL (RECOMMENDATION): None Electronically Signed By: Abena Waters RN progress on 2019-05 PROGRESS HNO ID: [id number] Normal 05-20-2019 [facility] Author: Jacqueline Goldsmith)(Hist) [place] ([id number]) Service: Radiology Author Type: Clinical High School Music Director Type: Progress Notes Filed: 05/20/2019 1:37 PM Note Text: Radiology Service Progress Note PATIENT NAME: Tiana Martínez DATE OF SERVICE: May 20, 2019 TIME: 1:37 PM PATIENT IDENTITY VERIFICATION COMPLETED USING TWO (2) IDENTI FIERS: Name and Date of confirmed by patient verbally and Name and Date of confirmed by identification band. PATIENT GENDER DATA: Male PATIENT RELEVANT IMPLANT DATA REVIEWED: Yes RADIOLOGY DEPARTMENT: Biopsy PERIPHERAL IV DATA: Not applicable SIGNED BY: PERI King May 20, 2019 1:37 PM nursing prog on NURSING PROG HNO ID: [id number] Normal 05-20-19 [facility] Author: Abena (Junie) JUNIE Waters [place] ([id number]) Service: Radiology Author Type: Registered Nurse Type: Nursing Progress Note Filed: 05/21/2019 10:52 AM Note Text: I called the patient s/p lung biopsy from 05/20/19. He reports he is having tenderness and bruising at the site but is otherwise doing w ell. He is aware to call radiology, with any questions or concerns related to the biopsy. history physical on 2019-05-20 HISTORY HNO ID: [id number] Normal 05-20-2019 [place] PHYSICAL Author: Sophie Melton (Fel) [facility] Service: Cardiovascular Medicine [place] Author Type: Fellow ([id number]) Type: HANDP Filed: 05/20/2019 12:41 PM Note Text: PROCEDURAL SEDATION HISTORY AND PHYSICAL EXAM SERVICE DATE: 05/20/2019 SERVICE TIME: 12:36 PM Subjective HPI: This is a 79 year old male who presents with right uppe r lobe nodule PAST ANESTHESIA HISTORY: No history of adverse event PAST MEDICAL HISTORY Diagnosis Date - Atrial fibrillation (HCC) - Basal 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 [id number] - COPD (chronic obstructive pulmonary disease) (HCC) - CVA (cerebral vascular accident) ([facility]) 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 - Diverticulosis of colon (without mention of hemorrhage) - DM (diabetes mellitus) ([facility]) - Hemorrhage of gastrointestinal tract, unspecified - Hypercholesteremia - Lung cancer (HCC) - Sebaceous cyst knee - Sebaceous cyst arm pit - Sebaceous cyst back PAST SURGICAL HISTORY Procedure Laterality Date - COLONOSCOP W/ OR W/O [facility] SPEC 06/14/07 [facility] inpt Prior to Admission medications as of 05/20/19 1119 Medication Sig Last Dose Taking ELIQUIS 5 mg tab(s) Take 5 mg by mouth twice daily. 05/18/2019 Yes TOPROL XL 50 mg 24 hr tablet Take 50 mg by mouth once daily. Yes olmesartan (BENICAR) 5 mg tablet Take 5 mg by mouth once seth ly. Yes rOPINIRole Hydrochloride 3 mg tablet Take 3 mg by mouth madyson y at bedtime. Yes furosemide (LASIX) 20 mg tablet Take 20 mg by mouth every ot her day. Yes fluticasone/umeclidin/vilanter (TRELEGY ELLIPTA INHALATION) Inhale as instructed once daily. Yes latanoprost (XALATAN) 0.005 % ophthalmic solution 1 Drop seth ly at bedtime. Yes Multivitamin capsule Take 1 capsule by mouth once daily. Yes EPINEPHrine (EPIPEN 2-ANUEL) 0.3 mg/0.3 mL auto-injector Injec t 0.3 mg intramuscularly as needed. Yes albuterol HFA (PROAIR HFA) 90 mcg/actuation inhaler Inhale 2 Puffs as instructed as needed. Yes aspirin(ADULT ASPIRIN EC LOW STRENGTH 81 MG TAB, DELAYED REL EASE) Take one(1) tablet daily. 05/15/2019 Yes atorvastatin calcium(LIPITOR 10 MG TAB) Take one(1) tablet d aily. Yes omeprazole (PRILOSEC) 20 mg capsule Take 40 mg by mouth once daily. ALLERGIES Allergen Reactions - Bees Objective PHYSICAL EXAM: The remainder of the physical exam is noncont ributory. AIRWAY: Airway Visualization of Uvula: Yes Mouth opening greater than 2 fingerbreadths: Yes Neck Full Range of Motion: Yes LUNGS: Lungs clear to auscultation, Good diaphragmatic excur parrish CARDIAC: Normal S1 and S2; no rubs, murmurs, or gallops Assessment/Plan ASA Class: ASA Class:: Patient with mild systemic disease Active Problems: * No active hospital problems. * Resolved Problems: * No resolved hospital problems. * Provisional Diagnosis/Treatment Plan: Right upper lobe nodul e SEDATION GOAL: Moderate SIGNATURE: Sophie Melton MD PATIENT NAME: Tiana Martínez DATE: May 20, 2019 TIME: 12:36 PM PAGER: [id number] ct biopsy lung on 2 CT BIOPSY LUNG * * *Final Report* * * Normal [facility] DATE OF EXAM: May 20 2019 2:12PM [place] ([id number]) [facility] [place] LUNG / PROCEDURE REASON: C34.11-Malignant neoplasm of upper lobe of right lung (HCC) * * * * Physician Interpretation * * * * CT-GUIDED PERCUTANEOUS LUNG BIOPSY CLINICAL INFORMATION: 79-year-old male with history of lung cancer and right upper lobe nodule. Risks versus benefits and diagnostic alternatives to percuta neous biopsy were explained to the patient, who voiced understanding and consent. PROCEDURE: Patient placed in the supine position on the scan alcides table. Right upper lobe nodule localized by CT. Significant interva l changes in imaging findings not present. Audible time out was performed . The patient was prepped and draped using all elements of maximal sterile barrier technique (cap, mask, sterile gown, sterile gloves, a large sterile sheet, hand hygiene and cutaneous antisepsis). [facility] factory local anesthesia. Under CT-fluoroscopic guidance, a 17-gauge introducer needle was advanced into the right upper lobe nodule, and us ing coaxial technique 4 core biopsies were made using an 18-gauge biopsy needle. Patient tolerated the procedure well. Follow-up chest x-ray revealed a possible tiny right apical pneumothorax, that did not appear to change between one and 2 hours. The procedure was performed by the: attending radiologist (Dr. Sampson), with an kindergarten assistant (Dr. Ab rowley). The attending radiologist performed the following procedural activities: Procedure start time:1324 Procedure end time: 1357 Sedation: 2 mg Versed and 100 mcg fentanyl Start time: 1319 End time: 1400 Samples: 4 core biopsies to surgical pathology in formalin. DLP: 247 mGy*cm IMPRESSION: CT guided core sampling of right upper lobe nodu le. 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 System: SCOOBY Transcribe Date/Time: May 20 2019 3:23P Dictated by : SOPHIE MELTON MD This examination was interpreted and the report reviewed and electronically signed by: SIMI SAMPSON MD on May 20 2019 5:05PM EST [id number] protime on PT Coag (PPP) [Time] 10.4 9.7-13.0 sec Normal 0 [facility] ([id number]) Comment: Performed By: #### CBC, PT # ###[facility] [place], [place] [phone] PT Coag (PPP) [Time] 1.0 0.9-1.3 s Normal 0 [facility] ([id number]) Comment: Result Comment: Vitamin K An tagonist (VKA) Therapeutic Range: INR 2 to 3 (Target INR of 2.5) Note: For patients treated w ith VKA drugs, such as warfarin, the [employer] 2012 Guideline recommends a therapeutic INR range of 2 to 3 (target INR of 2.5). This recommendation includes high-risk patients with antiphospholipid syndrome with previous arterial or venous thromboembolism, current-generation mechanical or bioprosthetic aortic heart valve replacement. Note: Patients with toll mechanic al aortic valve replacement and additional risk factors for thromboembolic events (atrial fibrillation, previous thromboembolism, LV dysfunction, hypercoagulable conditions) or an older generation mecha nical AVR (i.e., ball in-Cage) or any mechanical MVR should have a INR therapeutic range of 2.5 to 3.5 (target INR of 3). Vitaliy GH, et al. Chest 2012 , 141:7S-47S Janet MCNEAL et al. [facility] 20 17, 70: [phone] Performed By: #### CBC, PT # ###[facility] [place], [place] [phone] nursing prog on NURSING HNO ID: [id number] Normal 05-15-2019 [place] PROG Author: Jackie Lopez) Eileen CARRIAGE OPERATOR Clinic Service: ? [place] Author Type: LICENSED NURSE ([id number]) Type: Nursing Progress Note Filed: 05/15/2019 10:47 AM Note Text: Pre-procedure instructions: Contacted Tiana Martínez and confirmed appt. for Biopsy Lung scheduled on 05/20/2018, at [facility]. Diet: Do not eat any solid food after midnight the night before yo ur procedure. You may drink clear liquids until 10:00am, which means black coffee or water only. Medications: IF ok with your Prescribing Provider: RADIOLOGY RECOMMENDS THESE MEDICATION RESTRICTIONS : Hold Eliquis for 48hrs hours prior to this procedure. Hold Aspirin for 5 days prior to this procedure. Medication pumps: Insulin pumps must be removed before entering the procedure room. Do you wear Neulasta Onpro? No If yes, the devise must be removed before entering the proce dure room. Contrast Dye Prep: Do you have a contrast dye allergy? No Labs: Lab work needs to be drawn by 05/19/2018 at the [facility] ic Lab. Arrival: Please bring your Photo ID and Insurance Card. A general consent may need to be signed. Arrival at 10:30amn to desk QB-1 ([facility]) and check in for your procedure. Your anticipated procedure start time will be between 12:00p m AND 12:30pm. Clicker Operator/Transportation: How will you be arriving for your procedure? private car. If you will be arriving at [facility] via ambulance or public transportation, please call to discuss. You will need a responsible adult to accompany you to and fr om the procedure. Your airport driver is required to stay with you until you are taken into the Procedure room. Recovery expectations: You will be in the recovery room post procedure for a minimu m of 1 Hour. Special concerns: Do you use CPAP or BPAP? No Written instructions provided to patient via [employer] If you have any questions please call [phone] cbc on 2019-05-15 Absolute nRBC <0.01 <0.01 Normal 05-15-2019 [facility] ([id number]) Comment: Performed By: #### CBC, PT # ###[facility] [id number] [place], [place] [id number]- [phone] Erythrocyte distribution 14.6 11.5-15.0 % Normal 05-15 [facility] width (RBC) [Ratio] [place] ([id number]) Comment: Performed By: #### CBC, PT # ###[place] [address], [place] [phone]- [phone] Hematocrit (Bld) [Volume 39.0 39.0-51.0 % Normal 05-15 [facility] fraction] [place] ([id number]) Comment: Performed By: #### CBC, PT # ###[place] [address], [place] [id number]- [phone] Hemoglobin (Bld) 12.6 13.0-17.0 g/dL Low 05-15-2019 [facility] [Mass/Vol] [place] ([id number]) Comment: Performed By: #### CBC, PT # ###[address] [place], [place] [id number]- [phone] MCH (RBC) [Entitic mass] 28.7 26.0-34.0 pG Normal 05-15 [facility] ([id number]) Comment: Performed By: #### CBC, PT # ###[address], [place] [id number]- [phone] MCHC (RBC) [Mass/Vol] 32.3 30.5-36.0 g/dL Normal 05-15-19 20 [facility] ([id number]) Comment: Performed By: #### CBC, PT # ###[address] [place], [place] [id number]- [phone] MCV (RBC) [Entitic vol] 88.8 80.0-100.0 fL Normal 05-15 [facility] ([id number]) Comment: Performed By: #### CBC, PT # ###[address] [place], [place] [id number]- [phone] Platelet mean volume 11.8 9.0-12.7 fL Normal 0 [facility] (Bld) [Entitic vol] [place] ([id number]) Comment: Performed By: #### CBC, PT # ###[address], [place] [id number]- [phone] Platelets (Bld) [#/Vol] 249 150-400 k/uL Normal 2019 [facility] ([id number]) Comment: Performed By: #### CBC, PT # ###[place] [address] [place], [place] [phone]- [phone] RBC (Bld) [#/Vol] 4.39 4.20-6.00 m/uL Normal 05-15-2019 [facility] ([id number]) Comment: Performed By: #### CBC, PT # ###[place] [address] [place], [place] [phone]- [phone] WBC (Bld) [#/Vol] 9.36 3.70-11.00 k/uL Normal 05-15-2019 [facility] ([id number]) Comment: Performed By: #### CBC, PT # ###[facility] [place], [place] [phone]- [phone] hosp on 2019-05-12 HOSP Patient:Tiana Martínez Normal 05-12-20 19 [facility] MRN: [place] ([id number]) Height:5' 9(1.753 m) Weight:195 lb (88.451 kg) Outpatient Medications as of 05/20/19: ELIQUIS 5 mg tab(s) TOPROL XL 50 mg 24 hr tablet omeprazole (PRILOSEC) 20 mg capsule olmesartan (BENICAR) 5 mg tablet rOPINIRole Hydrochloride 3 mg tablet furosemide (LASIX) 20 mg tablet fluticasone/umeclidin/vilanter (TRELEGY ELLIPTA INHALATION) latanoprost (XALATAN) 0.005 % ophthalmic solution Multivitamin capsule EPINEPHrine (EPIPEN 2-ANUEL) 0.3 mg/0.3 mL auto-injector albuterol HFA (PROAIR HFA) 90 mcg/actuation inhaler aspirin(ADULT ASPIRIN EC LOW STRENGTH 81 MG TAB, DELAYED REL EASE) atorvastatin calcium(LIPITOR 10 MG TAB) Admission/Clinic Administered Medications as of 05/20/19: Patient has no admission medications. Problem List: Diverticulosis of colon (without mention of hemorrhage) [K57 .30] Hemorrhage of gastrointestinal tract, unspecified [K92.2] External hemorrhoids without mention of complication [K64.4] Internal hemorrhoids without mention of complication [K64.8] Elevated prostate specific antigen (PSA) [R97.20] Hypertrophy of prostate without urinary obstruction and ot her lower urinary tract symptoms (LUTS) [N40.0] Lung nodule [R91.1] Malignant neoplasm of upper lobe of right lung (HCC) [C34.11 ] Emphysema of lung (HCC) [J43.9] Allergies: Bees Date Verified: 04/26/19 Lab Values Lab Value Units Date High Low MICHAELLE* 39.0 % 05/15/2019 51.0 39.0 Progress Notes ([facility]): Kaia East RN 04/24/2019 1:56 PM Signed REVIEW OF SYSTEMS: General: The patient notes fatigue, denies weight loss, mikael es weight gain, denies feeling hot, and denies feelings of cold. Eyes: The patient notes glaucoma, notes eye injury/surgery, wears glasses or contacts. Ear/Nose/Throat: The patient notes allergies, notes hayfever , denies ear infections, and denies bloody noses. Cardiovascular: The patient notes chest pain, notes heart di sease, notes high blood pressure,denies cardiac stent, denies prior heart attack, notes irregular heart beat, notes high cholesterol, denies p oor circulation, notes heart failure, other cardiac issues, denies claudication, denies cold feet, denies peripheral arterial stent. Respiratory: The patient denies tuberculosis, notes pneumoni a, notes frequent cough, denies pulmo nary embolism, notes shortness of breath, and denies coughing up blood. Gastrointestinal: The patient denies difficulty swallowing, denies acid reflux, denies ulcers, denies vomiting, denies jaundice/hepa titis, denies gallbladder problems, denies black or tarry stools, no lanie hemorrhoids, notes bleeding from rectum, denies diverticulitis, denies constipa tion, notes diarrhea, denies loss of stool control, and notes hernias. Kidney/Bladder: The patient notes kidney stones, notes urine infections, and notes bloody urine. Skin: The patient notes a history of skin cancer, denies ble eding/changing moles, and denies a history of skin rash. Neurologic: The patient denies a history of epilepsy/convuls ions, notes headaches, denies head/spinal injuries, and notes stroke/TIA . Psychiatric: The patient denies psychiatric medications, den ies depression, and denies voices, denies substance abuse. Endocrine: The patient notes thyroid disorders, notes diabet es, and denies hormonal problems. Hematologic: The patient denies a history of bruising, notes bleeding, and denies anemia, denies blood clots. Infections: The patient notes a history of measles and mumps , denies rheumatic fever, and denies sexually transmitted diseases. Musculoskeletal: The patient notes back pain/injury, notes b ack problems, notes sciatica, denies knee/foot trouble, notes arthritis, o r denies gout. When was patient's last Mammogram screening? N/A Last Colonoscopy: 2007 Kaia Kiser MD 04/26/2019 6:54 PM Signed Tiana Martínez 1940 REFERRING PHYSICIAN: MD Jayden CHIEF COMPLAINT: Consult HPI: The patient is a 79 year old male w ith a complaint of left groin pain and known left inguinal hernia. He states that the pain is not too untolerable, he is uncomf ortable occasionally. He denies GI/ obstructive symptoms. He denies incarceratio n of hernia. He had been offered left ing uinal hernia surgery - open and he presents wanting discuss options of hernia [place] rgery and wonders why he cannot undergo laparoscopic surgery. He has a significant past medical history of car diac and pulmonary disorders. He will be undergoing Holter monitoring by cardiology. Has known lung cancer, that is deemed unresectab le due to his diminished lung capacity due to long-term cigarette use. He still smokes cig arettes. He is presently being considered for chemotherapy and/or radiation therapy. He is presently on Eliquis and aspirin for chronic atrial fi brillation. He states that he was told that he was not monique date for laparoscopic surgery due to his cardiac condition, but then he had un dergone cardiac studies which revealed relatively decent cardiac funct ion. Therefore, he presents for second opinion regarding type of hernia surgery to be done. PAST MEDICAL HISTORY Diagnosis Date - Atrial fibrillation (HCC) - Basal 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 [id number] - COPD (chronic obstructive pulmonary disease) (HCC) - CVA (cerebral vascular accident) (HCC) 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 - Diverticulosis of colon (without mention of hemorrhage) - DM (diabetes mellitus) (HCC) - Hemorrhage of gastrointestinal tract, unspecified - Hypercholesteremia - Lung cancer (HCC) - Sebaceous cyst knee - Sebaceous cyst arm pit - Sebaceous cyst back Right eye blindness PAST SURGICAL HISTORY Procedure Laterality Date - COLONOSCOP W/ OR W/O [facility] SPEC 06/14/07 [facility] inpt TURP Right knee surgery Eye surgery Current Outpatient Medications Medication Sig - ELIQUIS 5 mg tab(s) Take 5 mg by mouth twice daily. - TOPROL XL 50 mg 24 hr tablet Take 50 mg by mouth once madyson y. - omeprazole (PRILOSEC) 20 mg capsule Take 40 mg by mouth on ce daily. - olmesartan (BENICAR) 5 mg tablet Take 5 mg by mouth once d aily. - rOPINIRole Hydrochloride 3 mg tablet Take 3 mg by mouth daily at bedtime. - furosemide (LASIX) 20 mg tablet Take 20 mg by mouth every other day. - fluticasone/umeclidin/vilanter (TRELEGY ELLIPTA INHALATION ) Inhale as instructed once daily. - latanoprost (XALATAN) 0.005 % ophthalmic solution 1 Drop daily at bedtime. - Multivitamin capsule Take 1 capsule by mouth once daily. - EPINEPHrine (EPIPEN 2-ANUEL) 0.3 mg/0.3 mL auto-injector Inj ect 0.3 mg intramuscularly as needed. - albuterol HFA (PROAIR HFA) 90 mcg/actuation inhaler Inhale 2 Puffs as instructed as needed. - aspirin(ADULT ASPIRIN EC L OW STRENGTH 81 MG TAB, DELAYED RELEASE) Take one(1) tablet daily. - atorvastatin calcium(LIPITOR 10 MG TAB) Take one(1) tablet daily. ALLERGIES: Bees PERSONAL HISTORY: Social History Tobacco Use - Smoking status: Current Every Day Smoker Packs/day: 0.50 Years: 50.00 Pack years: 25.00 Types: Cigarettes - Smokeless tobacco: Never Used Substance Use Topics - Alcohol use: No - Drug use: No FAMILY HISTORY Problem Relation Age of Onset - Emphysema Mother - Heart disease Mother - Hypertension Mother - Stroke Mother - Heart Father - Alcohol/Drug Father - Hypertension Father - Stroke Father - Breast Cancer Sister - None Sister Nursing Notes: Kaia East RN 04/24/2019 1:56 PM Signed REVIEW OF SYSTEMS: General: The patient notes fatigue, denies weight loss, mikael es weight gain, denies feeling hot, and denies feelings of cold. Eyes: The patient notes glaucoma, notes eye injury/surgery, wears glasses or contacts. Ear/Nose/Throat: The patient notes allergies, notes hayfever , denies ear infections, and denies bloody noses. Cardiovascular: The patient notes chest pain, notes heart di sease, notes high blood pressure,denies cardiac stent, denies prior heart attack, notes irregular heart beat, notes high cholesterol, denies p oor circulation, notes heart failure, other cardiac issues, denies claudication, denies cold feet, denies peripheral arterial stent. Respiratory: The patient denies tuberculosis, notes pneumoni a, notes frequent cough, denies pulmo nary embolism, notes shortness of breath, and denies coughing up blood. Gastrointestinal: The patient denies difficulty swallowing, denies acid reflux, denies ulcers, denies vomiting, denies jaundice/hepa titis, denies gallbladder problems, denies black or tarry stools, no lanie hemorrhoids, notes bleeding from rectum, last colonoscopy 2007, denies divertic ulitis, denies constipation, notes diarrhea, denies los s of stool control, and notes hernias. Kidney/Bladder: The patient notes kidney stones, notes urine infections, and notes bloody urine. Skin: history of skin cancer - basal cell, denies bleeding/c hanging moles, and denies a history of skin rash. Neurologic: The patient denies a history of epilepsy/convuls ions, notes headaches, denies head/spinal injuries, and notes stroke/TIA . Psychiatric: The patient denies psychiatric medications, den ies depression, and denies voices, denies substance abuse. Endocrine: The patient notes thyroid disorders, notes diabet es, and denies hormonal problems. Hematologic: The patient denies a history of bruising, notes bleeding, and denies anemia, denies blood clots. Infections: The patient notes a history of measles and mumps , denies rheumatic fever, and denies sexually transmitted diseases. Musculoskeletal: The patient notes back pain/injury, notes b ack problems, notes sciatica, denies knee/foot trouble, notes arthritis, o r denies gout. PHYSICAL EXAMINATION: General: The patient is 79 year old male, well n ourished, well hydrated in no acute distress. The patient is oriented to time, place, and person. VITALS: Blood pressure 154/70, pulse 88, temperature 36.7 ?C (98 ?F), temperature source Temporal Artery, height 175.3 cm (5' 9), weight 88.5 kg (195 lb), SpO2 94 %. Body mass index is 28.8 kg/m?. Head ? Normocephalic. EOM in tact with sclera clear and no icterus noted. Wearing glasses. Mouth with mucus membranes moist. Neck - supple with no jugular venous distention noted. Trachea is midline. No carotid bruits noted. No masses noted. Lungs ? clear to auscultation.. Normal b reath sounds No rales/rhonchi/wheezing noted. No labored breathing noted, such as retractions. No c ough heard. Heart ? normal S1 and S2 auscultated. No rubs/clicks/murmu rs noted. Regular rate. Abdomen ? soft and benign. Normal bowel sounds. No abdominal bruits noted. No distention noted. Genitalia ? normal male phallus, testes in normal alen omical position and no masses noted, bilateral inguinal hernias noted w ith left greater than right - reducible Extremities ? no calf tenderness noted. No pitting edema not ed. Skin ? normal skin integrity. Neurological ? gait normal, no focal deficits noted. Psych ? calm and appropriate Assessment IMPRESSION: left inguinal hernia - symptomatic PLAN: I have discussed the above with the patient and his son who is present with him. I have spent much time listening to kb ent relate his medical problems, he is redundant in his discussion and often discusses his [facility] medical experiences that are tangential to this patient encounter. I have offered left inguinal hernia repair, open anterior ap proach with posterior placement of mesh (Kugel fashion). I have explained the procedure to the patient and his son. I have counseled the patient as to the risks of the procedure, including but not limited to: infection, bleeding, injury to any blood vessels /nerves, scar tissue, injury to the sperma tic cord and/or testicle, chronic groin pain, injury to bowel/bladder, recurrence of hernia, wound infections, co mplications of anesthesia, etc. ? the patient understands. I have discussed that laparoscopic surge ry would be prohibitive to patient due to his diminished lung capacity. The patient will consider his options. I have counseled him to retu rn to the clinic at his convenience if he wishes to schedule for surgery. I have answered all question s to the patient?s satisfaction and the patient has no further questions. Greater than 50% of this pat ient encounter was spent in fjks-te-pevo discussion regarding the patient's past medical history and education with regard to the different type of hernia repairs and the advanta ges and disadvantages of each type. Total time spent with patient - 45 minutes. . Diagnoses: (K40.90) Left inguinal hernia (primary encounter diagnosis) (C34.11) Malignant neoplasm of upper lobe of right lung (HCC ) (J43.9) Pulmonary emphysema, unspecified emphysema type (HCC ) (Z79.01) Current use of group home anticoagulation Return to Clinic: The patien t is instructed to follow-up with me as per needed. I have confirmed and edited as necessary , the PFSH and ROS obtained by others. Cesilia Kiser MD Progress Notes ([facility]): Sam Sanchez MD 04/29/2019 12:00 PM Signed Radiation Oncology - Virtual Visit Follow Up Note PATIENT NAME: Tiana Martínez PATIENT DIAGNOSIS: RUL NSCLC (Stage IA) s/p SBRT (50 Gy in 5 fx) completed 03/22/16.?? INTERVAL HISTORY: Mr. Martínez is seen [facility], in the company of his family. Overall he reports he is well, no clinical joselyn nges since he was last seen. Breathing is stable, no cough, chest pain or hemo ptysis. Denies abdominal pain, bone pain or neurological change s. Energy is stable, baseline activity and appetite. Discussed that while he does not have overt evidence of radiographic recurrence, that on each of the last several follow-up CT's the visible CT density has increased slightly in size. Would have expected post SBRT ch anges to have stabilized by this time-point, and as such this is concerning for potentially ongoing active disease. At the same time PET scan demonstrat es a slight reduction in SUV, and as such it is possible this may represent ongoing post SBRT change (versus progression of PET negative neoplasm). Given that these changes have continued to progress now 3 years post treatment would recommend proceeding with biopsy for more definitive d iagnosis. REVIEW OF SYSTEMS: GENERAL: Negative for weight loss, fevers, chills, or night sweats. HEENT: Negative for sudden vision or hearing changes. NECK: Negative for masses in the neck. RESPIRATORY: SEE HPI. CARDIAC: Negative for chest pain, palpit ations, murmurs, or syncopal episodes. GI: Negative for nausea, vom iting, diarrhea, constipation, blood per rectum, or melena. : Negative for dysuria, hematuria, urgency, frequency or i ncontinence. MUSCULOSKELETAL: Negative for limitations in movement, pain, or swelling. NEURO: Negative for dizziness, headache, weakness or numbnes s. HEMATOLOGIC: Negative for bleeding or easy bruising. SKIN: Negative for rashes or other skin changes. PHYSICAL EXAM: Virtual Visit KPS: 79 General Appearance: Alert and oriented. No acute distress. TOXICITY ASSESSMENT CTC4: No ASSESSMENT/PLAN: Clinically well. Discussed that while he does not have overt evidence of radiographic recurrence, that on each of the last several follow-up CT's the visible CT density has increased slightly in size. Would have expected post SBRT ch anges to have stabilized by this time-point, and as such this is concerning for potentially ongoing active disease. At the same time PET scan demonstrat es a slight reduction in SUV, and as such it is possible this may represent ongoing post SBRT change (versus progression of PET negative neoplasm). Given that these changes have continued to progress now 3 years post treatment would recommend proceeding with biopsy for more definitive d iagnosis. He is in agreement with proc eeding with biopsy, though due to family reasons he would like to defer this until May. This is not unreason able given the overall long time course of evolution of his CT changes, as well as low PET SUV, though have advised that he not delay this significantly beyond that timeframe. Patient has contact information for CT-guided biopsy (whic h was ordered and scheduled previously), and he states that he would lik e to call and schedule biopsy at his own convenience rather nichole n have us schedule for the purposes of coordinating with his family. Will await biopsy results. Signed by: Sam Sanchez MD progress on 2019-04 PROGRESS HNO ID: [id number] Normal 04-24-2019 [facility] Author: Cesilia Kiser [place] Service: ? ([id number]) Author Type: Physician Type: Progress Notes Filed: 04/26/2019 6:54 PM Note Text: Tiana Martínez 1940 REFERRING PHYSICIAN: MD Jayden CHIEF COMPLAINT: Consult HPI: The patient is a 79 year old male with a complaint of l eft groin pain and known left inguinal hernia. He states that the pain is not too untolerable, he is uncomf ortable occasionally. He denies GI/ obstructive symptoms. He denies incarceratio n of hernia. He had been offered left inguinal hernia surgery - open and he presents wanting discuss options of hernia surgery and wonders why he cannot undergo laparoscopic surgery. He has a significant past medical history of cardiac and pul monary disorders. He will be undergoing Holter monitoring by cardiology. Has known lung cancer, that is deemed unresectable due to hi s diminished lung capacity due to long-term cigarette use. He still smoke s cigarettes. He is presently being considered for chemotherapy and/or rad iation therapy. He is presently on Eliquis and aspirin for chronic atrial fi brillation. He states that he was told that he was not candidate for lap aroscopic surgery due to his cardiac condition, but then he had underg one cardiac studies which revealed relatively decent cardiac function. T herefore, he presents for second opinion regarding type of hernia surgery to be done. PAST MEDICAL HISTORY Diagnosis Date - Atrial fibrillation (HCC) - Basal 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 [id number] - COPD (chronic obstructive pulmonary disease) ([facility]) - CVA (cerebral vascular accident) ([facility]) 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 - Diverticulosis of colon (without mention of hemorrhage) - DM (diabetes mellitus) ([facility]) - Hemorrhage of gastrointestinal tract, unspecified - Hypercholesteremia - Lung cancer (HCC) - Sebaceous cyst knee - Sebaceous cyst arm pit - Sebaceous cyst back Right eye blindness PAST SURGICAL HISTORY Procedure Laterality Date - [facility] inpt TURP Right knee surgery Eye surgery Current Outpatient Medications Medication Sig - ELIQUIS 5 mg tab(s) Take 5 mg by mouth twice daily. - TOPROL XL 50 mg 24 hr tablet Take 50 mg by mouth once madyson y. - omeprazole (PRILOSEC) 20 mg capsule Take 40 mg by mouth on ce daily. - olmesartan (BENICAR) 5 mg tablet Take 5 mg by mouth once d aily. - rOPINIRole Hydrochloride 3 mg tablet Take 3 mg by mouth da maicol at bedtime. - furosemide (LASIX) 20 mg tablet Take 20 mg by mouth every other day. - fluticasone/umeclidin/vilanter (TRELEGY ELLIPTA INHALATION ) Inhale as instructed once daily. - latanoprost (XALATAN) 0.005 % ophthalmic solution 1 Drop d aily at bedtime. - Multivitamin capsule Take 1 capsule by mouth once daily. - EPINEPHrine (EPIPEN 2-ANUEL) 0.3 mg/0.3 mL auto-injector Inj ect 0.3 mg intramuscularly as needed. - albuterol HFA (PROAIR HFA) 90 mcg/actuation inhaler Inhale 2 Puffs as instructed as needed. - aspirin(ADULT ASPIRIN EC LOW STRENGTH 81 MG TAB, DELAYED R ELEASE) Take one(1) tablet daily. - atorvastatin calcium(LIPITOR 10 MG TAB) Take one(1) tablet daily. ALLERGIES: Bees PERSONAL HISTORY: Social History Tobacco Use - Smoking status: Current Every Day Smoker Packs/day: 0.50 Years: 50.00 Pack years: 25.00 Types: Cigarettes - Smokeless tobacco: Never Used Substance Use Topics - Alcohol use: No - Drug use: No FAMILY HISTORY Problem Relation Age of Onset - Emphysema Mother - Heart disease Mother - Hypertension Mother - Stroke Mother - Heart Father - Alcohol/Drug Father - Hypertension Father - Stroke Father - Breast Cancer Sister - None Sister Nursing Notes: Kaia East RN 04/24/2019 1:56 PM Signed REVIEW OF SYSTEMS: General: The patient notes fatigue, denies weight loss, mikael es weight gain, denies feeling hot, and denies feelings of cold . Eyes: The patient notes glaucoma, notes eye injury/surgery, wears glasses or contacts. Ear/Nose/Throat: The patient notes allergies, notes hayfever , denies ear infections, and denies bloody noses. Cardiovascular: The patient notes chest pain, notes heart di sease, notes high blood pressure,denies cardiac stent, denies prior heart attack, notes irregular heart beat, notes high cholesterol, denies p oor circulation, notes heart failure, other cardiac issues, mikael es claudication, denies cold feet, denies peripheral arterial s tent. Respiratory: The patient denies tuberculosis, notes pneumoni a, notes frequent cough, denies pulmonary embolism, notes shortness o f breath, and denies coughing up blood. Gastrointestinal: The patient denies difficulty swallowing, denies acid reflux, denies ulcers, denies vomiting, denies jaundice /hepatitis, denies gallbladder problems, denies black or tarry stools, n otes hemorrhoids, notes bleeding from rectum, last colonoscopy 31 12, denies diverticulitis, denies constipation, notes diarrhea, denies loss of stool control, and notes hernias. Kidney/Bladder: The patient notes kidney stones, notes urine infections, and notes bloody urine. Skin: history of skin cancer - basal cell, denies bleeding/c hanging moles, and denies a history of skin rash. Neurologic: The patient denies a history of epilepsy/convuls ions, notes headaches, denies head/spinal injuries, and notes stro ke/TIA. Psychiatric: The patient denies psychiatric medications, den ies depression, and denies voices, denies substance abuse. Endocrine: The patient notes thyroid disorders, notes diabet es, and denies hormonal problems. Hematologic: The patient denies a history of bruising, notes bleeding, and denies anemia, denies blood clots. Infections: The patient notes a history of measles and mumps , denies rheumatic fever, and denies sexually transmitted diseases. Musculoskeletal: The patient notes back pain/injury, notes b ack problems, notes sciatica, denies knee/foot trouble, notes ar thritis, or denies gout. PHYSICAL EXAMINATION: General: The patient is 79 year old male, well nourished, we ll hydrated in no acute distress. The patient is oriented to time, place , and person. VITALS: Blood pressure 154/70, pulse 88, temperature 36.7 ?C (98 ?F), temperature source Temporal Artery, height 175.3 cm (5' 9), weight 88.5 kg (195 lb), SpO2 94 %. Body mass index is 28.8 kg/m?. Head ? Normocephalic. EOM intact with sclera clear and no ic terus noted. Wearing glasses. Mouth with mucus membranes moist. Neck - supple with no jugular venous distention noted. Trach ea is midline. No carotid bruits noted. No masses noted. Lungs ? clear to auscultation.. Normal breath sounds No rales/rhonchi/wheezing noted. No labored breathing noted, stanford ch as retractions. No cough heard. Heart ? normal S1 and S2 auscultated. No rubs/clicks/murmurs noted. Regular rate. Abdomen ? soft and benign. Normal bowel sounds. No abdominal bruits noted. No distention noted. Genitalia ? normal male phallus, testes in normal anatomical position and no masses noted, bilateral inguinal hernias noted with left greater than right - reducible Extremities ? no calf tenderness noted. No pitting edema not ed. Skin ? normal skin integrity. Neurological ? gait normal, no focal deficits noted. Psych ? calm and appropriate Assessment IMPRESSION: left inguinal hernia - symptomatic PLAN: I have discussed the above with the patient and his so n who is present with him. I have spent much time listening to patient relate his medic al problems, he is redundant in his discussion and often discusses his [facility] medical experiences that are tangential to this patient encounter. I have offered left inguinal hernia repair, open anterior ap proach with posterior placement of mesh (Kugel fashion). I have explained the procedure to the patient and his son. I have counseled the patient as to the risks of the procedur e, including but not limited to: infection, bleeding, injury to any blood vessels/nerves, scar tissue, injury to the spermatic cord an d/or testicle, chronic groin pain, injury to bowel/bladder, recurrence of h ernia, wound infections, complications of anesthesia, etc. ? the patient understands. I have discussed that laparoscopic surgery would be prohibit favio to patient due to his diminished lung capacity. The patient will consider his options. I have counseled him to return to the clinic at his [facility] if he wishes to schedule for surgery. I have answered all questions to the patient?s satisfaction and the patient has no further questions. Greater than 50% of this patient encounter was spent in face -to-face discussion regarding the patient's past medical history and education with regard to the different type of hernia repairs and the advan tages and disadvantages of each type. Total time spent with patient - 45 minutes. . 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 I have confirmed and edited as necessary, the PFSH and ROS o btained by others. MD jose f Sadler on 2019-04-24 CNOV Office Visit (GENSWS) Normal 04-24-20 19 [place] [facility] TIANA MARTÍNEZ ([id number]) 1940 [facility] Date Time Provider Department ([id number]) 04/24/19 1:30 PM CESILIA KISER During your visit today, we recorded the following informati on about you: Temperature Pulse Blood pressure Weight 98 degrees 88/minute 154/70 88.5 kg Height 1.753 m Kaia East RN 04/24/2019 1:56 PM Signed REVIEW OF SYSTEMS: General: The patient notes fatigue, denies weight loss, mikael es weight gain, denies feeling hot, and denies feelings of cold. Eyes: The patient notes glaucoma, notes eye injury/surgery, wears glasses or contacts. Ear/Nose/Throat: The patient notes allergies, notes hayfever , denies ear infections, and denies bloody noses. Cardiovascular: The patient notes chest pain, notes heart di sease, notes high blood pressure,denies cardiac stent, denies prior heart attack, notes irregular heart beat, notes high cholesterol, denies p oor circulation, notes heart failure, other cardiac issues, denies claudication, denies cold feet, denies peripheral arterial stent. Respiratory: The patient denies tuberculosis, notes pneumoni a, notes frequent cough, denies pulmonary embolism, notes shortness o f breath, and denies coughing up blood. Gastrointestinal: The patient denies difficulty swallowing, denies acid reflux, denies ulcers, denies vomiting, denies jaundice/hepa titis, denies gallbladder problems, denies black or tarry stools, no lanie hemorrhoids, notes bleeding from rectum, denies diverticulitis, denies constipa tion, notes diarrhea, denies loss of stool control, and notes hernias. Kidney/Bladder: The patient notes kidney stones, notes urine infections, and notes bloody urine. Skin: The patient notes a history of skin cancer, denies bleeding/changing moles, and denies a history of skin rash. Neurologic: The patient denies a history of epilepsy/convuls ions, notes headaches, denies head/spinal injuries, and notes stroke/TIA . Psychiatric: The patient denies psychiatric medications, den ies depression, and denies voices, denies substance abuse. Endocrine: The patient notes thyroid disorders, notes diabet es, and denies hormonal problems. Hematologic: The patient denies a history of bruising, notes bleeding, and denies anemia, denies blood clots. Infections: The patient notes a history of measles and mumps , denies rheumatic fever, and denies sexually transmitted diseases. Musculoskeletal: The patient notes back pain/injury, notes b ack problems, notes sciatica, denies knee/foot trouble, notes arthritis, o r denies gout. When was patient's last Mammogram screening? N/A Last Colonoscopy: 2007 Kaia Kiser MD 04/26/2019 6:54 PM Signed Tiana Martínez 1940 REFERRING PHYSICIAN: MD Jayden CHIEF COMPLAINT: Consult HPI: The patient is a 79 year old male w ith a complaint of left groin pain and known left inguinal hernia. He states that the pain is not too untolerable, he is uncomf ortable occasionally. He denies GI/ obstructive symptoms. He denies incarceratio n of hernia. He had been offered left ing uinal hernia surgery - open and he presents wanting discuss options of hernia surgery and wonders why he cannot undergo laparoscopic surgery. He has a significant past medical history of car diac and pulmonary disorders. He will be undergoing Holter monitoring by cardiology. Has known lung cancer, that is deemed unresectab le due to his diminished lung capacity due to long-term cigarette use. He still smokes cig arettes. He is presently being considered for chemotherapy and/or radiation therapy. He is presently on Eliquis and aspirin for chronic atrial fi brillation. He states that he was told that he was not monique date for laparoscopic surgery due to his cardiac condition, but then he had un dergone cardiac studies which revealed relatively decent cardiac funct ion. Therefore, he presents for second opinion regarding type of hernia surgery to be done. PAST MEDICAL HISTORY Diagnosis Date - Atrial fibrillation (HCC) - Basal 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 [id number] - COPD (chronic obstructive pulmonary disease) (HCC) - CVA (cerebral vascular accident) ([facility]) 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 - Diverticulosis of colon (without mention of hemorrhage) - DM (diabetes mellitus) ([facility]) - Hemorrhage of gastrointestinal tract, unspecified - Hypercholesteremia - Lung cancer (HCC) - Sebaceous cyst knee - Sebaceous cyst arm pit - Sebaceous cyst back Right eye blindness PAST SURGICAL HISTORY Procedure Laterality Date - COLONOSCOP W/ OR W/O BRSH SPEC 06/14/07 [facility] inpt TURP Right knee surgery Eye surgery Current Outpatient Medications Medication Sig - ELIQUIS 5 mg tab(s) Take 5 mg by mouth twice daily. - TOPROL XL 50 mg 24 hr tablet Take 50 mg by mouth once madyson y. - omeprazole (PRILOSEC) 20 mg capsule Take 40 mg by mouth on ce daily. - olmesartan (BENICAR) 5 mg tablet Take 5 mg by mouth once d aily. - rOPINIRole Hydrochloride 3 mg tablet Take 3 mg by mouth daily at bedtime. - furosemide (LASIX) 20 mg tablet Take 20 mg by mouth every other day. - fluticasone/umeclidin/vilanter (TRELEGY ELLIPTA INHALATION ) Inhale as instructed once daily. - latanoprost (XALATAN) 0.005 % ophthalmic solution 1 Drop daily at bedtime. - Multivitamin capsule Take 1 capsule by mouth once daily. - EPINEPHrine (EPIPEN 2-ANUEL) 0.3 mg/0.3 mL auto-injector Inj ect 0.3 mg intramuscularly as needed. - albuterol HFA (PROAIR HFA) 90 mcg/actuation inhaler Inhale 2 Puffs as instructed as needed. - aspirin(ADULT ASPIRIN EC L OW STRENGTH 81 MG TAB, DELAYED RELEASE) Take one(1) tablet daily. - atorvastatin calcium(LIPITOR 10 MG TAB) Take one(1) tablet daily. ALLERGIES: Bees PERSONAL HISTORY: Social History Tobacco Use - Smoking status: Current Every Day Smoker Packs/day: 0.50 Years: 50.00 Pack years: 25.00 Types: Cigarettes - Smokeless tobacco: Never Used Substance Use Topics - Alcohol use: No - Drug use: No FAMILY HISTORY Problem Relation Age of Onset - Emphysema Mother - Heart disease Mother - Hypertension Mother - Stroke Mother - Heart Father - Alcohol/Drug Father - Hypertension Father - Stroke Father - Breast Cancer Sister - None Sister Nursing Notes: Kaia East RN 04/24/2019 1:56 PM Signed REVIEW OF SYSTEMS: General: The patient notes fatigue, denies weight loss, mikael es weight gain, denies feeling hot, and denies feelings of cold. Eyes: The patient notes glaucoma, notes eye injury/surgery, wears glasses or contacts. Ear/Nose/Throat: The patient notes allergies, notes hayfever , denies ear infections, and denies bloody noses. Cardiovascular: The patient notes chest pain, notes heart di sease, notes high blood pressure,denies cardiac stent, denies prior heart attack, notes irregular heart beat, notes high cholesterol, denies p oor circulation, notes heart failure, other cardiac issues, denies claudication, denies cold feet, denies peripheral arterial stent. Respiratory: The patient denies tuberculosis, notes pneumoni a, notes frequent cough, denies pulmonary embolism, notes shortness o f breath, and denies coughing up blood. Gastrointestinal: The patient denies difficulty swallowing, denies acid reflux, denies ulcers, denies vomiting, denies jaundice/hepa titis, denies gallbladder problems, denies black or tarry stools, no lanie hemorrhoids, notes bleeding from rectum, last colonoscopy 2007, denies divertic ulitis, denies constipation, notes diarrhea, denies los s of stool control, and notes hernias. Kidney/Bladder: The patient notes kidney stones, notes urine infections, and notes bloody urine. Skin: history of skin cancer - basal cell, denies bleeding/c hanging moles, and denies a history of skin rash. Neurologic: The patient denies a history of epilepsy/convuls ions, notes headaches, denies head/spinal injuries, and notes stroke/TIA . Psychiatric: The patient denies psychiatric medications, den ies depression, and denies voices, denies substance abuse. Endocrine: The patient notes thyroid disorders, notes diabet es, and denies hormonal problems. Hematologic: The patient denies a history of bruising, notes bleeding, and denies anemia, denies blood clots. Infections: The patient notes a history of measles and mumps , denies rheumatic fever, and denies sexually transmitted diseases. Musculoskeletal: The patient notes back pain/injury, notes b ack problems, notes sciatica, denies knee/foot trouble, notes arthritis, o r denies gout. PHYSICAL EXAMINATION: General: The patient is 79 year old male, well n ourished, well hydrated in no acute distress. The patient is oriented to time, place, and person. VITALS: Blood pressure 154/70, pulse 88, temperature 36.7 ?C (98 ?F), temperature source Temporal Artery, height 175.3 cm (5' 9 ), weight 88.5 kg (195 lb), SpO2 94 %. Body mass index is 28.8 kg/m?. Head ? Normocephalic. EOM intact with sclera clear and no ic terus noted. Wearing glasses. Mouth with mucus membranes moist. Neck - supple with no jugular venous distention noted. Trachea is midline. No carotid bruits noted. No masses noted. Lungs ? clear to auscultation.. Normal b reath sounds No rales/rhonchi/wheezing noted. No labored breathing noted, such as retractions. No c ough heard. Heart ? normal S1 and S2 auscultated. No rubs/clicks/murmu rs noted. Regular rate. Abdomen ? soft and benign. Normal bowel sounds. No abdominal bruits noted. No distention noted. Genitalia ? normal male phallus, testes in normal alen omical position and no masses noted, bilateral inguinal hernias noted w ith left greater than right - reducible Extremities ? no calf tenderness noted. No pitting edema not ed. Skin ? normal skin integrity. Neurological ? gait normal, no focal deficits noted. Psych ? calm and appropriate Assessment IMPRESSION: left inguinal hernia - symptomatic PLAN: I have discussed the above with the patient and his son who is present with him. I have spent much time listening to kb ent relate his medical problems, he is redundant in his discussion and often discusses his pa st medical experiences that are tangential to this patient encounter. I have offered left inguinal hernia repair, open anterior ap proach with posterior placement of mesh (Kugel fashion). I have explained the procedure to the patient and his son. I have counseled the patient as to the risks of the pr ocedure, including but not limited to: infection, bleeding, injury to a ny blood vessels/nerves, scar tissue, injury to the spermatic cord and/or testicle, chroni c groin pain, injury to bowel/bladder, recurrence of h ernia, wound infections, complications of anesthesia, etc. ? the patient understands. I have discussed that laparoscopic surge ry would be prohibitive to patient due to his diminished lung capacity. The patient will consider his options. I have counseled him to retu rn to the clinic at his convenience if he wishes to schedule for surgery. I have answered all question s to the patient?s satisfaction and the patient has no further questions. Greater than 50% of this pat ient encounter was spent in [id number] discussion regarding the patient's past medical history and education with regard to the different type of hernia repairs and the advanta ges and disadvantages of each type. Total time spent with patient - 45 minutes. . Diagnoses: (K40.90) Left inguinal hernia (primary encounter diagnosis) (C34.11) Malignant neoplasm of upper lobe of right lung (HCC ) (J43.9) Pulmonary emphysema, unspecified emphysema type (HCC ) (Z79.01) Current use of group home anticoagulation Return to Clinic: The patien t is instructed to follow-up with me as per needed. I have confirmed and edited as necessary , the PFSH and ROS obtained by others. 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 ROPINIROLE 3 MG TABLET Take 3 mg by mouth daily at b* FUROSEMIDE 20 MG TABLET Take 20 mg by mouth every oth* TRELEGY ELLIPTA INHALATION Inhale as instructed once seth* LATANOPROST 0.005 % EYE DROPS 1 Drop daily at bedtime. MULTIVITAMIN CAPSULE Take 1 capsule by mouth once * EPINEPHRINE 0.3 MG/0.3 ML INJ* Inject 0.3 mg intramuscularly * ALBUTEROL SULFATE HFA 90 MCG/* Inhale 2 Puffs as instructed * ADULT ASPIRIN EC LOW STRENGTH* Take one(1) tablet daily. LIPITOR 10 MG TABLET Take one(1) tablet daily. Problem List As Of Date 04/24/2019 Noted Resolved DIVERTICULOSIS OF COLON W/O BLEED [K57.30] GASTROINTEST HEMORR NOS [K92.2] EXT HEMORRHOID W/O COMPL [K64.4] INT HEMORRHOID W/O COMPL [K64.8] ELEVATED PROSTATE SPECIFIC ANTIGEN [R97.20] 08/01/2007 BPH W/O URINARY OBS/LUTS [N40.0] 08/01/2007 Lung nodule [R91.1] 01/13/2016 Malignant neoplasm of upper lobe of right lung *05/21/2016 Emphysema of lung (HCC) [J43.9] 07/21/2016 Visit Notes: >> Kaia East RN Mari Apr 24, 2019 1:51 PM Status: Signed REVIEW OF SYSTEMS: General: The patient notes fatigue, denies weight loss, mikael es weight gain, denies feeling hot, and denies feelings of cold . Eyes: The patient notes glaucoma, notes eye injury/surgery, wears glasses or contacts. Ear/Nose/Throat: The patient notes allergies, notes hayfever , denies ear infections, and denies bloody noses. Cardiovascular: The patient notes chest pain, notes heart di sease, notes high blood pressure,denies cardiac stent, denies prior heart attack, notes irregular heart beat, notes high cholesterol, denies p oor circulation, notes heart failure, other cardiac issues, mikael es claudication, denies cold feet, denies peripheral arterial s tent. Respiratory: The patient denies tuberculosis, notes pneumoni a, notes frequent cough, denies pulmonary embolism, notes shortness o f breath, and denies coughing up blood. Gastrointestinal: The patient denies difficulty swallowing, denies acid reflux, denies ulcers, denies vomiting, denies jaundice /hepatitis, denies gallbladder problems, denies black or tarry stools, n otes hemorrhoids, notes bleeding from rectum, denies diverticulit is, denies constipation, notes diarrhea, denies loss of stool control, and notes hernias. Kidney/Bladder: The patient notes kidney stones, notes urine infections, and notes bloody urine. Skin: The patient notes a history of skin cancer, denies bleeding/changing moles, and denies a history of skin rash. Neurologic: The patient denies a history of epilepsy/convuls ions, notes headaches, denies head/spinal injuries, and notes stro ke/TIA. Psychiatric: The patient denies psychiatric medications, den ies depression, and denies voices, denies substance abuse. Endocrine: The patient notes thyroid disorders, notes diabet es, and denies hormonal problems. Hematologic: The patient denies a history of bruising, notes bleeding, and denies anemia, denies blood clots. Infections: The patient notes a history of measles and mumps , denies rheumatic fever, and denies sexually transmitted diseases. Musculoskeletal: The patient notes back pain/injury, notes b ack problems, notes sciatica, denies knee/foot trouble, notes ar thritis, or denies gout. When was patient's last Mammogram screening? N/A Last Colonoscopy: 2007 Kaia East RN Encounter Status:Closed by MD CESILIA KISER on 04/26/19 progress on 2019-04 PROGRESS HNO ID: [id number] Normal 04-23-2019 [facility] Author: Sam Sanchez [place] ([id number]) Service: ? Author Type: Physician Type: Progress Notes Filed: 04/29/2019 12:00 PM Note Text: Radiation Oncology - Virtual Visit Follow Up Note PATIENT NAME: Tiana Martínez PATIENT DIAGNOSIS: RUL NSCLC (Stage IA) s/p SBRT (50 Gy in 5 fx) com pleted 03/22/16.?? INTERVAL HISTORY: Mr. Martínez is seen today over platform, in the company of his family. Overall he reports he is well, no cli nical changes since he was last seen. Breathing is stable, no cough, chest pain or hemoptysis. Denies abdominal pain, bone pain or neurological changes. Energy is stable, baseline activity and appetite. Discussed that while he does not have overt evidence of radi ographic recurrence, that on each of the last several follow-up CT's the visible CT density has increased slightly in size. Would have expected post SBRT changes to have stabilized by this time-point, and as such t his is concerning for potentially ongoing active disease. At the [facility] time PET scan demonstrates a slight reduction in SUV, and as such it is possible this may represent ongoing post SBRT change (versus progress ion of PET negative neoplasm). Given that these changes have continued to progress now 3 ye ars post treatment would recommend proceeding with biopsy for more de finitive diagnosis. REVIEW OF SYSTEMS: GENERAL: Negative for weight loss, fevers, chills, or night sweats. HEENT: Negative for sudden vision or hearing changes. NECK: Negative for masses in the neck. RESPIRATORY: SEE HPI. CARDIAC: Negative for chest pain, palpitations, murmurs, or syncopal episodes. GI: Negative for nausea, vomiting, diarrhea, constipation, b lood per rectum, or melena. : Negative for dysuria, hematuria, urgency, frequency or i ncontinence. MUSCULOSKELETAL: Negative for limitations in movement, pain, or swelling. NEURO: Negative for dizziness, headache, weakness or numbnes s. HEMATOLOGIC: Negative for bleeding or easy bruising. SKIN: Negative for rashes or other skin changes. PHYSICAL EXAM: Virtual Visit KPS: 79 General Appearance: Alert and oriented. No acute distress. TOXICITY ASSESSMENT CTC4: No ASSESSMENT/PLAN: Clinically well. Discussed that while he does not have overt evidence of radi ographic recurrence, that on each of the last several follow-up CT's the visible CT density has increased slightly in size. Would have expected post SBRT changes to have stabilized by this time-point, and as such t his is concerning for potentially ongoing active disease. At the [facility] time PET scan demonstrates a slight reduction in SUV, and as such it is possible this may represent ongoing post SBRT change (versus progress ion of PET negative neoplasm). Given that these changes have continued to progress now 3 ye ars post treatment would recommend proceeding with biopsy for more de finitive diagnosis. He is in agreement with proceeding with biopsy, though due t o family reasons he would like to defer this until May. This is n ot unreasonable given the overall long time course of evolution of his CT changes, as well as low PET SUV, though have advised that he not delay this significantly beyond that timeframe. Patient has contact information for CT-guided biopsy (which was ordered and scheduled previously), and he states that he would like to call and schedule biopsy at his own convenience rather than have us s chedule for the purposes of coordinating with his family. Will await biopsy results. Signed by: Sam Sanchez MD progress on 2019-03 PROGRESS HNO ID: [id number] Normal 04-01-2019 [place] Author: Jennifer Pink ([facility] Service: Nuclear Medicine ([id number]) Author Type: High School [employer] Director Type: Progress Notes Filed: 04/01/2019 8:26 AM Note Text: RADIOLOGY SERVICE PROGRESS NOTE SERVICE DATE: 04/01/2019 SERVICE TIME: 8:25 AM PATIENT IDENTITY VERIFICATION COMPLETED USING TWO (2) [address] IDENTIFIERS: Name and Date of confirmed by patient nida umu PATIENT GENDER DATA: .male ALLERGIES: Reviewed and unchanged MEDICATIONS REVIEWED: Not applicable PATIENT RELEVANT IMPLANT DATA REVIEWED: Not Applicable CREATININE: Creatinine Date Value Ref Range Status 01/13/2016 1.08 0.70 - 1.40 mg/dL Final eGFR-All Other Races Date Value Ref Range Status 01/13/2016 >60 . Final Comment: eGFR (Estimated GFR) Units of measure: mL/min/1.73 meters sq uared eGFR is derived from the reexpressed MDRD Study equation usi ng the following parameters: serum creatinine, age, gender and race. The crea tinine assay has been calibrated to be traceable to [employer]. An eGFR <60 mL/min/1.73m2 for >3 months is consistent with c hronic kidney disease. Refer to KDOQI guidelines for clinical interpretati on. In patients with unstable renal function, e.g. those with [facility] [place] kidney injury, the eGFR may not accurately reflect actual GFR. eGFR- Date Value Ref Range Status 01/13/2016 >60 Final P.O.C.T. RESULTS: N/A April 01, [address] PERFORMED: No IV SITE: Ambulatory: A peripheral IV was started in the [facility] t antecubital site with a Angio cath: 22 gauge. POST EXAM PIV STATUS: Discontinued PROCEDURE TYPE: NM INJECT: PET/CT BODY SCAN. 10.2 mCi F18 FD G. No other medications given.. ADMINISTRATION TIME: 0820 PATIENT DISCHARGED TO: Ambulatory patient, left [place] [facility] area. A Diagnostic radioactive procedure has taken place, with no further precautions necessary other than routine body substance prec autions. More information regarding radiation safety can be found using is link: [email or web address] SIGNATURE: Rei Suarez PATIENT NAME: Tiana Martínez DATE: April 01, 2019 TIME: 8:25 AM PAGER/CONTACT #: sc pet/ct skull-thigh subq on 2019-04-01 UT PET/CT * * *Final Report* * * Normal [address] [place] [address] SKULL-THIGH SUBQ * * * SEE BOTTOM OF REPORT FOR ADDENDED TEXT * * * ([id number]) DATE OF EXAM: Apr 01 2019 10:03AM MDP 0063 - UT PET/CT SKULL-THIGH SUBQ / 4 PROCEDURE REASON: C34.90-Malignant neoplasm of unspecified p art of unspecified bronchus or lung (H * * * * Physician Interpretation * * * * * * * * * * * * ORIGINAL REPORT * * * * * * * * EXAMINATION: REGIONAL BODY FDG PET/CT SCAN: (04/01/2019 12:3 2 PM) HISTORY: 79 year old Male with Malignant neoplasm of unspeci fied part of unspecified bronchus or lung (HCC) . INDICATION: Study performed for subsequent treatment strateg y. TECHNIQUE: F18-FDG administered IV was followed about 60 min utes later by PET imaging from eyes to proximal thighs. Free breathing low dose CT was performed without contrast for attenuation correction and an atomic localization. FDG radionuclide dose: 10.[address] Dose-Length Product (DLP): 314 mGy*cm. CT Dose Reduction Employed: Automated exposure control (AEC) was used COMPARISON: FDG PET/CT dated 01/15/2018 CORRELATION: None. RESULT: NECK: Physiologic FDG uptake seen in the visualized brain, parapha ryngeal soft tissues, base of tongue, vocal cords, and salivary glands. No hypermetabolic cervical lymphadenopathy or masses. Redemonstrated is a 1.4 cm hypermetabolic nodule in the left thyroid lobe (maximum SUV 11.0), stable; ultrasonographic correlation is recommended. CHEST: Physiologic FDG uptake in the heart and mediastinum. Lungs and tracheobronchial tree: There is a 1.2 cm right upp er lobe pulmonary nodule with mild FDG uptake with maximum SUV 2.3 ( previously measured 0.9 cm and maximum SUV 2.6); residual/recurrent germaine plasm is not excluded. No other hypermetabolic pulmonary consolidation, m ass or nodules. Pleura: No hypermetabolic pleural or pericardial effusion, o r pleural mass. Mediastinum and Lymph nodes: No hypermetabolic axillary, hil ar, or mediastinal lymphadenopathy. No mediastinal mass. Chest wall: Unremarkable. ABDOMEN AND PELVIS: Physiologic FDG uptake seen in the and GI tracts. Liver: No hypermetabolic mass. Biliary: No bile duct dilation. Spleen: No hypermetabolic splenic mass. No splenomegaly. Pancreas: No mass or duct dilation. Adrenals: No hypermetabolic mass. Kidneys: No stones, hydronephrosis, or hypermetabolic lesion s. GI tract: No dilation or wall thickening. Lymph nodes: No hypermetabolic abdominal or pelvic lymphaden opathy. Mesentery/Peritoneum: No ascites or mass. Vasculature: Vascular patency cannot be assessed due to lack of IV contrast. BONES AND EXTREMITIES: No suspicious FDG avid osseous foci are detected. The imaged portions of the skeleton disclose age-related degenerative changes, with no detectable destructive lytic or sclerotic lesions. ====== IMPRESSION: 1. NECK: No FDG avid neoplastic process. No hypermetabolic m ass, adenopathy, or fluid collection. 2. CHEST: Enlarging, mildly FDG avid right upper lobe pulmon carly nodule; residual/recurrent neoplasm is not excluded. No hypermetabol ic mass, adenopathy, or fluid collection. 3. ABDOMEN/PELVIS: No FDG avid neoplastic process. No hyperm etabolic mass, adenopathy, or fluid collection. 4. EXTREMITIES/SKELETON: No suspicious FDG avid osseous process. * * * * * * * * ADDENDUM #1 * * * * * * * * ADDENDUM: Note is made of a hypermetabolic left thyroid nodule; ultras onographic correlation is recommended. 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: SCOOBY Transcribe Date/Time: Apr 01 2019 1:39P Dictated by : REMI GRAYSON MD This examination was interpreted and the report reviewed and electronically signed by: REMI GRAYSON MD on Apr 01 2019 1:34PM EST This document has been addended by: REMI GRAYSON MD on 2018 1:39PM EST [id number] progress on 2018-12 PROGRESS HNO ID: [id number] Normal 01-05-2019 [facility] Author: Sam Sanchez [place] Service: ? ([id number]) Author Type: Physician Type: Progress Notes Filed: 01/05/2019 9:36 PM Note Text: Radiation Oncology - Follow Up Note PATIENT NAME: Tiana Martínez PATIENT DIAGNOSIS: RUL NSCLC (Stage IA) s/p SBRT (50 Gy in 5 fx) com pleted 03/22/16. ? INTERVAL HISTORY: Overall continues to do well, clinically s table with no changes in breathing, no cough, no chest pain, no neuro edge ges. Review of CT shows ongoing slow evolution of RUL. Given that this continues to increase in size suspect it is most consistent with slow growth of underlying viable malignancy despite SBRT. At the same time progression remains quite slow with each scan. Discussed RBA of biopsy versus following at this time. Patient prefers further close follow-up which I agree is reasonable (though there is a small risk of disease spreading with observation suspect this is relatively low gi gerson slow growth). Will follow with repeat PET in 4 months. If growing and more avid may need to consider biopsy versus salvage therapy at t hat time. ALLERGIES Allergen Reactions - Bees MEDICATIONS: olmesartan (BENICAR) 5 mg tablet Take 5 mg by mouth once seth ly. rOPINIRole Hydrochloride 3 mg tablet Take 3 mg by mouth madyson y at bedtime. furosemide (LASIX) 20 mg tablet Take 20 mg by mouth every ot her day. fluticasone/umeclidin/vilanter (TRELEGY ELLIPTA INHALATION) Inhale as instructed once daily. latanoprost (XALATAN) 0.005 % ophthalmic solution 1 Drop seth ly at bedtime. Multivitamin capsule Take 1 capsule by mouth once daily. EPINEPHrine (EPIPEN 2-ANUEL) 0.3 mg/0.3 mL auto-injector Injec t 0.3 mg intramuscularly as needed. albuterol HFA (PROAIR HFA) 90 mcg/actuation inhaler Inhale 2 Puffs as instructed as needed. aspirin(ADULT ASPIRIN EC LOW STRENGTH 81 MG TAB, DELAYED REL EASE) Take one(1) tablet daily. atorvastatin calcium(LIPITOR 10 MG TAB) Take one(1) tablet d aily. REVIEW OF SYSTEMS: GENERAL: Negative for weight loss, fevers, chills, or night sweats. HEENT: Negative for sudden vision or hearing changes. NECK: Negative for masses in the neck. RESPIRATORY: SEE HPI. CARDIAC: Negative for chest pain, palpitations, murmurs, or syncopal episodes. GI: Negative for nausea, vomiting, diarrhea, constipation, b lood per rectum, or melena. : Negative for dysuria, hematuria, urgency, frequency or i ncontinence. MUSCULOSKELETAL: Negative for limitations in movement, pain, or swelling. NEURO: Negative for dizziness, headache, weakness or numbnes s. HEMATOLOGIC: Negative for bleeding or easy bruising. SKIN: Negative for rashes or other skin changes. PHYSICAL EXAM: VS: BP 159/80 Pulse 69 Temp 36.7 ?C (98 ?F) (Oral) Res p 18 Wt 83.2 kg (183 lb 8 oz) SpO2 99% BMI 27.10 kg/m? KPS: 80 General appearance: Alert and oriented. No acute distress. HEENT: NCAT. Sclera anicteric. PER. EOMI. Neck: Normal ROM. Abdomen: Soft. Nontender. Nondistended. Musculoskeletal: No edema. Normal ROM in extremities. No bon e or spine tenderness. Neuro: No focal deficits. Skin: No rashes noted TOXICITY ASSESSMENT CTC4: No ASSESSMENT/PLAN: Clinically doing well. Review of CT shows ongoing slow evolution of RUL. Given that this continues to increase in size suspect it is most consistent with slow growth of underlying viable malignancy despite SBRT. At the same time progression remains quite slow with each scan. Discussed RBA of biopsy versus following at this time. Patient prefers further close follow-up which I agree is reasonable (though there is a small risk of disease spreading with observation suspect this is relatively low gi gerson slow growth). Will follow with repeat PET in 4 months. If growing and more avid may need to consider biopsy versus salvage therapy at t hat time. Signed by: Sam Sanchez MD cnov on 2018-12-31 CNOV Office Visit (RADTMN) Normal 01-01-20 [place] [facility] TIANA MARTÍNEZ ([id number]) 1940 M [place] Date Time Provider Department ([id number]) 12/31/18 10:00 AM SAM SANCHEZ RADSARAN During your visit today, we recorded the following informati on about you: Temperature Pulse Respiration Blood pressure 98 degrees 69/minute 18/minute 159/80 Weight 83.2 kg Sam Sanchez MD 01/05/2019 9:36 PM Signed Radiation Oncology - Follow Up Note PATIENT NAME: Tiana Martínez PATIENT DIAGNOSIS: RUL NSCLC (Stage IA) s/p SBRT (50 Gy in 5 fx) completed 03/22/16. ? INTERVAL HISTORY: Overall continues to do well, clinically s table with no changes in breathing, no cough, no chest pain, no neuro edge ges. Review of CT shows ongoing slow evolutio n of RUL. Given that this continues to increase in size suspect it is most consistent w ith slow growth of underlying viable malignancy despite SBRT. At the same time progression remains quite slow with each scan. Discussed RBA of biopsy versus follow ing at this time. Patient prefers further close follow-up which I agree is r easonable (though there is a small risk of disease spreading with observatio n suspect this is relatively low given slow growth). Will follow with repeat PET in 4 months. If growing and more avid may need to con web operations administrator biopsy versus salvage therapy at that time. ALLERGIES Allergen Reactions - Bees MEDICATIONS: olmesartan (BENICAR) 5 mg tablet Take 5 mg by mouth once seth ly. rOPINIRole Hydrochloride 3 mg tablet Take 3 mg by mouth madyson y at bedtime. furosemide (LASIX) 20 mg tablet Take 20 mg by mouth every ot her day. fluticasone/umeclidin/vilanter (TRELEGY ELLIPTA INHALATION) Inhale as instructed once daily. latanoprost (XALATAN) 0.005 % ophthalmic solution 1 Drop seth ly at bedtime. Multivitamin capsule Take 1 capsule by mouth once daily. EPINEPHrine (EPIPEN 2-ANUEL) 0.3 mg/0.3 mL auto-injector Injec t 0.3 mg intramuscularly as needed. albuterol HFA (PROAIR HFA) 90 mcg/actuation inhaler Inhale 2 Puffs as instructed as needed. aspirin(ADULT ASPIRIN EC LOW STRENGTH 81 MG TAB, DELAYED RELEASE) Take one(1) tablet daily. atorvastatin calcium(LIPITOR 10 MG TAB) Take one(1) tablet d aily. REVIEW OF SYSTEMS: GENERAL: Negative for weight loss, fevers, chills, or night sweats. HEENT: Negative for sudden vision or hearing changes. NECK: Negative for masses in the neck. RESPIRATORY: SEE HPI. CARDIAC: Negative for chest pain, palpit ations, murmurs, or syncopal episodes. GI: Negative for nausea, vom iting, diarrhea, constipation, blood per rectum, or melena. : Negative for dysuria, hematuria, urgency, frequency or i ncontinence. MUSCULOSKELETAL: Negative for limitations in movement, pain, or swelling. NEURO: Negative for dizziness, headache, weakness or numbnes s. HEMATOLOGIC: Negative for bleeding or easy bruising. SKIN: Negative for rashes or other skin changes. PHYSICAL EXAM: VS: BP 159/80 Pulse 69 Temp 36.7 ?C (98 ?F) (Oral) Res p 18 Wt 83.2 kg (183 lb 8 oz) SpO2 99% BMI 27.10 kg/m? KPS: 80 General appearance: Alert and oriented. No acute distress. HEENT: NCAT. Sclera anicteric. PER. EOMI. Neck: Normal ROM. Abdomen: Soft. Nontender. Nondistended. Musculoskeletal: No edema. Normal ROM in extremities. No bon e or spine tenderness. Neuro: No focal deficits. Skin: No rashes noted TOXICITY ASSESSMENT CTC4: No ASSESSMENT/PLAN: Clinically doing well. Review of CT shows ongoing slow evolutio n of RUL. Given that this continues to increase in size suspect it is most consistent w ith slow growth of underlying viable malignancy despite SBRT. At the same time progression remains quite slow with each scan. Discussed RBA of biopsy versus follow ing at this time. Patient prefers further close follow-up which I agree is r easonable (though there is a small risk of disease spreading with observatio n suspect this is relatively low given slow growth). Will follow with repeat PET in 4 months. If growing and more avid may need to con web operations administrator biopsy versus salvage therapy at that time. Signed by: Sam Sanchez MD Referring Provider: SAM SANCHEZ [[id number]] Allergies As of Date: 12/31/2018 Noted Allergy Reaction BEES 08/01/2007 Date Reviewed: 12/31/2018 Reviewed by: Romina (Public Policy Mediator) Vu - Fully Assessed Reason for Visit: Established Patient [175] Primary Visit Diagnosis:Malignant neoplasm of upper lo be of right lung (HCC) [C34.11] Other Visit Diagnosis:Malignant neoplasm of unspecified pa rt of unspecified bronchus or lung (HCC) [C34.90] Order(s):NM PET/CT SKULL-THIGH SUBQ [[id number]] Order #: [id number] FUTURE Prescriptions as of 12/31/2018 Sig: OLMESARTAN 5 MG TABLET Take 5 mg by mouth once daily. ROPINIROLE 3 MG TABLET Take 3 mg by mouth daily at b* FUROSEMIDE 20 MG TABLET Take 20 mg by mouth every oth* TRELEGY ELLIPTA INHALATION Inhale as instructed once seth* LATANOPROST 0.005 % EYE DROPS 1 Drop daily at bedtime. MULTIVITAMIN CAPSULE Take 1 capsule by mouth once * EPINEPHRINE 0.3 MG/0.3 ML INJ* Inject 0.3 mg intramuscularly * ALBUTEROL SULFATE HFA 90 MCG/* Inhale 2 Puffs as instructed * ADULT ASPIRIN EC LOW STRENGTH* Take one(1) tablet daily. LIPITOR 10 MG TABLET Take one(1) tablet daily. Problem List As Of Date 12/31/2018 Noted Resolved DIVERTICULOSIS OF COLON W/O BLEED [K57.30] GASTROINTEST HEMORR NOS [K92.2] EXT HEMORRHOID W/O COMPL [K64.4] INT HEMORRHOID W/O COMPL [K64.8] ELEVATED PROSTATE SPECIFIC ANTIGEN [R97.20] INVALID FOR* BPH W/O URINARY OBS/LUTS [N40.0] INVALID FOR* Lung nodule [R91.1] INVALID FOR* Malignant neoplasm of upper lobe of right lung *INVALID FOR* Emphysema of lung (HCC) [J43.9] INVALID FOR* Medications Discontinued During This Encounter budesonide-formoterol (SYMBICORT) 16* 3 In* 4 08/20/20172018 Route: INHALATION Sig: Inhale 2 Puffs as instructed twice daily. Disc: Reason for discontinue is not on file. budesonide-formoterol (SYMBICORT) 16* 1 In* 3 08/08/201712/31 Route: INHALATION Sig: Inhale 2 Puffs as instructed twice daily. Disc: Reason for discontinue is not on file. cholecalciferol, vitamin D3, (VITAMI* 12/31/2018 Class: Historical Med Route: ORAL Sig: Take 400 Units by mouth once daily. Disc: Reason for discontinue is not on file. CYANOCOBALAMIN, VITAMIN B-12, (VITAM* 12/31/2018 Class: Historical Med Route: ORAL Sig: Take 500 Units by mouth. Disc: Reason for discontinue is not on file. metFORMIN ER (GLUMETZA) 500 mg 24 hr* 12/31/2018 Class: Historical Med Route: ORAL Sig: Take 500 mg by mouth daily with breakfast. Disc: Reason for discontinue is not on file. losartan-hydrochlorothiazide (HYZAAR* 12/31/2018 Class: Historical Med Route: ORAL Sig: Take 1 tablet by mouth once daily. Disc: Reason for discontinue is not on file. Level of Service: EST PATIENT VISIT LEVEL 4 [[id number]] Disposition: Return in about 4 months (around 05/02/2019). Follow-up and Disposition History Recorded Encounter Status:Closed by SAM SANCHEZ MD on 01/05/19 us thyroid/parathyroid on 2018-12-24 US THYROID/PARATHYROID * * *Final Report* * * Santana mir 12-24-2018 [place] DATE OF EXAM: Dec 24 2018 10:02AM [facility] WRU [id number] - US THYROID/PARATHYROID / [place] PROCEDURE REASON: Nontoxic single thyroid nodule ([id number]) * * * * Physician Interpretation * * * * HISTORY: Follow-up thyroid nodules TECHNIQUE: Real-time imaging was performed with selected per manent images saved for later interpretation. COMPARISON: 02/11/2016 ultrasound RESULT: Thyroid shows generally inhomogeneous diffusely abno rmal appearing echo pattern. The right lobe measures 5.9 x 2.4 x 2.4 cm and the left 5.1 x 2.2 x 2.3. There is 1.9 x 1.6 x 1.7 cm sharply defined nodule at the lo wer pole of the left lobe with diminished internal vascularity which was measured previously at 1.8 x 1.5 x 1.3 cm. There is a 5 x 4 x 5 mm complex cystic nodule in the midport ion of the left lobe which appears new. 2 vaguely bordered possible nodules are measured on the righ t measuring 10 x 9 x 10 mm on the mid right and 10 x 8 x 8 mm on the low er right. These show increased internal vascularity on color Doppler e xam. Given technical differences they are not considered to be signific antly changed compared with the previous examination. IMPRESSION: Thyroid nodules as detailed are not thought to b e significantly changed. Diffuse multinodular goiter is noted. New 5 mm cystic nodule in the midportion of the left lobe. 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: SCOOBY Transcribe Date/Time: Dec 25 2018 8:55A Dictated by : TIANA RAZO MD This examination was interpreted and the report reviewed and electronically signed by: TIANA RAZO MD on Dec 25 2018 8:59AM EST [id number] progress on 2018-12 PROGRESS HNO ID: [id number] Normal 12-24-2018 [facility] Author: Louann Ponce [facility] ([id number]) Service: ? Author Type: ? Type: Progress Notes Filed: 12/24/2018 9:45 AM Note Text: Radiology Service Progress Note PATIENT NAME: Tiana Martínez DATE OF SERVICE: December 24, 2018 TIME: 9:45 AM PATIENT IDENTITY VERIFICATION COMPLETED USING TWO (2) METHOD S: Patient confirmed name verbally and Date of . PATIENT GENDER DATA: Male PATIENT RELEVANT IMPLANT DATA REVIEWED: Not Applicable RADIOLOGY DEPARTMENT: Ultrasound PERIPHERAL IV DATA: Not applicable SIGNED BY: Louann Ponce Rdms December 24, 2018 9:45 AM PROGRESS HNO ID: [id number] Normal 12-24-2018 [facility] Author: Jacqueline Garg (Ct) PERI Meredith [place] ([id number]) Service: ? Author Type: Clinical High School Music Director Type: Progress Notes Filed: 12/24/2018 9:03 AM Note Text: Radiology Service Progress Note PATIENT NAME: Tiana Martínez DATE OF SERVICE: December 24, 2018 TIME: 9:02 AM PATIENT IDENTITY VERIFICATION COMPLETED USING TWO (2) METHOD S: Patient confirmed name verbally and Date of . PATIENT GENDER DATA: Male PATIENT RELEVANT IMPLANT DATA REVIEWED: Yes RADIOLOGY DEPARTMENT: CT; Exam(s) Completed: Chest PERIPHERAL IV DATA: Not applicable SIGNED BY: PERI Yanes December 24, 2018 9:[address] chest wo ivcon o n 2018-12-24 CT CHEST WO * * *Final Report* * * Normal 12-24 [facility] IVCON DATE OF EXAM: Dec 24 2018 9:04AM [place] ([id number]) [facility] 0541 - CT CHEST WO IVCON / PROCEDURE REASON: Malignant neoplasm of unspecified part of unspecified bronchus or lung (HCC) * * * * Physician Interpretation * * * * EXAMINATION: CHEST CT WITHOUT CONTRAST CLINICAL HISTORY: Malignant neoplasm of unspecified part of unspecified bronchus or lung (HCC) RUL NSCLC (Stage IA) s/p SBRT (50 Gy in 5 fx) completed 03/22.? Technique: Spiral CT acquisition of the chest from the thora cic inlet to the upper abdomen without contrast. MQ: [id number] CT Dose-Length Product: 201 mGy*cm CT Dose Reduction Employed: Automated exposure control (AEC) Comparison: CT chest, 07/09/2018 RESULT: Limitations: None. Lines, tubes, and devices: None. Lung parenchyma and pleura: A spiculated right upper lobe no dule with subpleural tag/reticulations is mildly larger and more conso lidative when compared to prior CT scans from 07/09/2018 and 04/05/2018. I t measures approximately 13 x 16 mm on the present scan (images 35-36), previously 13 mm in greatest diameter on 04/05/2018. Stable 3 mm left u pper lobe nodule (image 26). There is interval improvement in previous ly seen branching centrilobular nodules (tree-in-bud) and peribronch ial groundglass opacities seen throughout both lungs on CT dated 07/09/2018. A cluster of new centrilobular nodules measuring 2 to 4 mm i s seen in the right lower lobe (images 148, 152, 154). Some tiny nodules a long the right major fissure are likely benign lymph nodes. A punctat e calcified granuloma is seen in the lingula (image 129). Mucoid impacti on with subsegmental atelectasis is seen in the inferior lingula (im age 139). Saber-sheath morphology of the trachea with diffuse bilatera l smooth bronchial wall thickening. No endobronchial soft tissue dens ities in the trachea or major bronchi. Stable mild biapical pleural paren chymal scarring associated with some stippled calcifications and li charan post inflammatory. No pneumothorax. No pleural effusion.. Thoracic inlet, heart, and mediastinum: Heterogenous attenua tion of bilateral thyroid lobes. Please refer to ultrasound of the t hyroid gland from the same day for accurate characterization and size com parison of a hypodense left thyroid lobe nodule which is not well-visuali zed on the present noncontrast scan. No axillary lymphadenopathy. No me diastinal or hilar lymphadenopathy. Stable lower right paratracheal ly mph node which measures 8 mm in short axis, nonspecific (image 80). A right retrocrural lymph node measures 7 mm in short axis and is st able (image 176). The thoracic esophagus is nondistended. Heart size is normal. No specific cardiac chamber enlargemen t. Lipomatous hypertrophy of interatrial septum is again seen. The thoracic aorta and the main pulmonary artery are normal in caliber. T here is a common origin of innominate artery and the left common carot id artery from the aortic arch, a normal variant. Scattered mild ather osclerotic calcifications are seen in the aorta and proximal branch ves sels arising from the aortic arch. There are diffuse coronary artery calc ifications, though the present study is not optimized for evaluation of the coronary arteries. There is no pericardial effusion or abnormal peric ardial thickening. Bones and soft tissues: Stable 9 x 14 mm sebaceous cyst in t he right anterior chest wall (image 93). Multilevel degenerative edge ges are present in the thoracic spine. There is a remote healed righ t posterior seventh rib fracture. No lytic or destructive osseous lesion s identified in the bony thorax. Upper abdomen: Stable 15 mm simple cyst in the superior pole of the left kidney (image 203), and a 10 mm hyperdense cyst with hemorrh agic or proteinaceous content in the medial aspect of the left kidne y (image 214). IMPRESSION: Spiculated right upper lobe subpleural nodule is mildly larg er and more consolidative in comparison to prior scans, and suspicious f or recurrence/growth. Notably, the nodule demonstrated residual mild FDG avidity on a remote PET/CT from 01/15/2018 and previously se en groundglass components of the nodule are now replaced with s olid components. Interval resolution of diffuse centrilobular nodules and per ibronchial groundglass opacities compatible with resolved infection or aspiration. Stable 3 mm indeterminate left upper lobe nodule. New cluste r of 2-4 mm centrilobular nodules in the RLL could be infectious/inflamm atory. Follow-up is suggested. No thoracic lymphadenopathy. 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: [facility] Transcribe Date/Time: Dec 24 2018 2:54P Dictated by : GARY TAVERA MD This examination was interpreted and the report reviewed and electronically signed by: GARY TAVERA MD on Dec 24 2018 3:23PM EST [id number] Vital Signs Vital Sign Description Value / Unit Date Location The following section is limited to 5 en tries per type and includes entries from the following time range: [id number] - [id number] 6. Body temperature 98.6 [degF] 11-07-2019 [facility] ([id number]) Body temperature 98.6 [degF] 10-31-2019 [facility] ([id number]) Procedures Procedure Name Date Provider Location Antibody screen 11-08-2019 [facility] ([id number]) Comment: Performed By: #### TSCR #### [facility], [place] [phone] Antibody screen 11-05-2019 [facility] ([id number]) Comment: Performed By: #### TSCR #### [facility] [id number] [place], [place] [phone] Antibody screen 11-02-2019 [facility] ([id number]) Comment: Performed By: #### TSCR #### [facility] [id number] [place], [place] [phone] Antibody screen 11-01-2019 [facility] ([id number]) Comment: Performed By: #### TSCR #### [facility] [id number] [place], [place] [phone]- [phone] Summary Purpose Family History No Family History Records FoundNo Family History Records Found Advance Directives No Advanced Directives Records FoundNo Advanced Directives Records Found Additional Source Comments FOR RECORDS PERTAINING TO PATIENTS WHO ARE OR HAVE BEEN ENROLLED IN A CHEMICAL DEPENDENCY/SUBSTANCE ABUSE PROGRAM, SOME INFORMATION MAY BE OMITTED. This clinical summary was aggregated from multiple sources. Caution should be exercised in using it in the provision of clinical care. This summary normalizes information from multiple sources, and as a consequence, information in this document may materially changethe coding, format and clinical context of patient data. In addition, data may be omittedin some cases. CLINICAL DECISIONS SHOULD BE BASED ON THE PRIMARY CLINICAL RECORDS. [facility] provides no warranty or guarantee of the accuracy or completeness of information in this document. UNRECOGNIZED CONTENT PROVIDED BELOW FOR UNRECOGNIZED SECTION No Status Records FoundNo Status Records Found UNRECOGNIZED CONTENT PROVIDED BELOW FOR UNRECOGNIZED SECTION INFORMATION SOURCE DATE CREATED AUTHOR AUTHOR'S ORGANIZATIO N 04/01/2019 [facility] DATE CREATED AUTHOR AUTHOR'S ORGANIZATIO N 11/28/2019 [facility]
== END ==
PROVIDERS: PCP Family Medicine; Visit Provider Family Medicine
DX: G25.81 Restless legs syndrome (principal); E11.29 Type 2 diabetes mellitus with other diabetic kidney complication; E55.9 Vitamin D deficiency, unspecified
CPT/HCPCS: 36415; 80053; 82306; 82728; 83735; 85025

== ENCOUNTER 2019-10-17 23:48 | Emergency (ER) | payer MEDICARE, BC, SELFPAY ==
[2019-08-20 11:16] VITALS: BMI 29.3
[2019-10-17 23:49] VITALS: BP 155/97; PULSE 90; RESP 18; TEMP 36.4; O2SAT 97; BMI 29.3
--- NOTE | 2019-10-18 00:19 | RAD_ITS ---
STUDY: X-RAY CHEST REASON FOR EXAM: Male, 79 years old patient with chronic shortness of breath. History of COPD. TECHNIQUE: Single AP portable view of the chest. COMPARISON: June 20, 2019. FINDINGS: Cardiac monitoring leads are present. The lungs are hyperexpanded. There is a masslike process in the left hilar area measuring up to 6.5 cm in size. This appears spiculated with the perihilar interstitial thickening adjacent to this mass. This could represent airspace consolidation or post obstructive atelectasis. There is a right apical pulmonary nodule measuring approximately 1.5 cm. This is unchanged since the previous radiograph. There is no demonstrated pleural abnormality. There is borderline cardiomegaly. Normal mediastinum and hailey. There is prominence of the pulmonary hilar arteries without peripheral pulmonary vascular congestion. There is atherosclerotic calcification of the aortic arch with tortuosity. There is demineralization of the osseous structures. Normal visualized ribs, clavicles, and shoulders. There is no demonstrated abnormality of the visualized soft tissue structures of the upper abdomen. RAD/Chest 1 View (Portable) IMPRESSION: 1. Right apical pulmonary nodule was present on the previous study. 2. Large left hilar masslike process. Differential considerations include lymphadenopathy, pulmonary mass or focal airspace disease. Electronically Signed: Alexandria Truong MD at 1:20 EDT , Service support ,
--- NOTE | 2019-10-18 00:19 | EKG12_ITS ---
Test Reason : ALLERGIC REACTION Blood Pressure : / mmHG Vent. Rate : 126 BPM Atrial Rate : 136 BPM P-R Int : 176 ms QRS Dur : 084 ms QT Int : 322 ms P-R-T Axes : 060 055 066 degrees QTc Int : 466 ms Sinus tachycardia with Premature atrial complexes Otherwise normal ECG Confirmed by MARÍA CALDERA, TIN ([id number]), website/blog editor MINE MARQUES ([id number]) on 10/20/2019 1:31:01 PM Referred By: CARLOS Confirmed By:TIN DANIEL MD
--- NOTE | 2019-10-18 00:19 | CT_ITS ---
STUDY: CT BRAIN WITHOUT CONTRAST REASON FOR EXAM: Male, 79 years old patient with visual hallucinations after starting new medication. RADIATION DOSAGE (If Supplied By Facility): CTDIvol = ( 44.99 ) mGy, DLP = ( 812.98 ) mGycm TECHNIQUE: Transaxial CT imaging of the brain was performed without administration of intravenous contrast material. Multiplanar reformations are submitted for interpretation. Individualized dose optimization techniques were used for this CT. COMPARISON: MRI of the brain dated January 07, 2019. FINDINGS: Normal soft tissue structures. Normal calvarium. There is mild cerebral atrophy with widening of the extra-axial spaces and ventricular dilatation. There are areas of decreased attenuation within the white matter tracts of the supratentorial brain, consistent with microvascular disease changes. Normal basal ganglia and thalami. Normal brainstem. Normal cerebellum. There is no intracranial hemorrhage. There is mild atherosclerotic calcification of the intracranial arteries. Normal visualized paranasal sinuses. CT/Brain/Head without Contrast IMPRESSION: 1. Chronic involutional changes of the brain. 2. No CT evidence of acute intracranial hemorrhage. Electronically Signed: Alexandria Truong MD at 1:30 EDT , Service support ,
--- NOTE | 2019-10-18 00:20 | ED.VIS.GEN ---
History of Present Illness Chief Complaint: Allergic Reaction Detail of Chief Complaint: visual hallucinations Informant: Patient, Family Onset: Days - 2 Context: Gradual Onset Timing: Intermittent Quality: seeing things/people that do not exist Current Severity: Moderate Maximum Severity: Moderate Worsened by: nothing in particular Relieved by: nothing in particular Associated Symptoms: none new Narrative: Patient has had insomnia for couple weeks. His ropinirole was discontinued 2 days ago and in its place he started mirtazapine in addition to melatonin 3 mg at dinner and before bed. He started both of those the same day he was prescribed them. Son states he talked to him on the phone that evening, after he took those pills, and said that his speech seemed a little slurred. The patient denies having any change in his speech or slurring at all. He has had 3 small strokes in the past, he states the only deficit that he has from those is decreased vision in his right eye, most of them were found incidentally without symptoms. However, since yesterday, he has been having visual hallucinations. No auditory hallucinations. The son provides an example, he stated hey, that carpet just moved 2 feet. No dad, it did not. Patient states he looked through the window and saw a 90-year-old lady writing on 1 of his car windows. He opened the door and went to address it and no one was there. He also saw someone else on his porch, he went to go get some mace and went to open the door to address them, no one was there. He states he understands that these are not real after the fact. He has not done anything dangerous so far. He lives by himself but his son is close by. He is chronically short of breath from COPD, he states that is no worse. He coughed hard almost a week ago, pulled some muscles in his upper back and rib cage, he was put on prednisone today for that pain. - Past Medical History (1) Restless legs syndrome Status: Chronic (2) COPD (chronic obstructive pulmonary disease) Status: Chronic (3) Personal history of skin cancer Status: Chronic Comment: 6 mm lesion left temporal scalp by the ear (4) Paroxysmal atrial fibrillation Status: Chronic (5) CVA (cerebral vascular accident) Status: Chronic (6) Essential (primary) hypertension Status: Chronic (7) HLD (hyperlipidemia) Status: Chronic (8) Lung cancer Status: Chronic Past Medical History - Allergies and Home Meds Allergies/Adverse Reactions: Allergies BEE STINGS Allergy (Severe, Uncoded 10/17/19 23:52) Anaphylaxis Primary Care Physician: Kevon Harrell MD [Primary Care Provider] - Surgical History: - - R hydrocele surgery, several basal cell CA skin removal, removal of cyst right knee. Lives: Alone Smoking Status: Current every day smoker - Family History Maternal Family History: Family History (Last Reviewed 08/21/19 @ 11:[address] Chan Dee MD) Father Heart disease Hypertension CVA (cerebral vascular accident) Grandmother Cancer Grandfather CVA (cerebral vascular accident) Family History: Reports: COPD Paternal Family History: Family History (Last Reviewed 08/21/19 @ 11:[address] Chan Dee MD) Father Heart disease Hypertension CVA (cerebral vascular accident) Grandmother Cancer Grandfather CVA (cerebral vascular accident) Family History: Reports: Heart Disease, Hypertension, Stroke Review of Systems General: Denies: Chills, Fever, Sweats Eyes: Denies: Visual changes - bilaterally, Diplopia ENT: Denies: Bilateral ear pain, Rhinorrhea, Sore throat Cardiovascular: Reports: Chest pain - sore ribs laterally, bilaterally when coughing. Denies: Palpitations Respiratory: Reports: Dyspnea, Cough - occasional, chronic, stable w/o worsening recently, Dyspnea on exertion Gastrointestinal: Denies: Abdominal pain, Nausea, Vomiting, Diarrhea, Melena, Hematochezia Genitourinary: Denies: Dysuria, Hematuria, Frequency Musculoskeletal: Reports: Back pain. Denies: Swelling, Extremity Pain Skin: Denies: Rash, Wounds Neurological: Denies: Headache, Weakness, Numbness Psych: Reports: - - visual hallucinations. see HPI.. Denies: Depression, Suicidal thoughts Physical Exam Vital Signs/Narrative: Vital Signs Temp Pulse Resp BP Pulse Ox 10/17/19 23:49 97.5 F L 90 18 155/97 H 97 Inital Vital Signs reviewed: Yes General: Well nourished, Well developed, No Acute Distress Head: Normocephalic, Atraumatic Eyes: Perrl, EOMI ENT: Moist mucous membranes, No rhinorrhea, - - POP clear Neck: Supple, Nontender, No lymphadenopathy Cardiovascular: Regular rate, Regular rhythm, No murmurs Respiratory: No distress, Chest nontender, Wheezing, Diminished - symmetrically diffusely. Negative for: Rales, Rhonchi Abdomen: Soft, Nontender, Nondistended, Normal bowel sounds Back: Normal Inspection. Negative for: CVA tenderness, Spinal tenderness Extremities: Nontender, No edema. Negative for: Calf Tenderness Skin: Normal color, No rash, No Trauma Neurological: Alert, Oriented x3, Cranial nerves II-XII grossly intact, Normal Strength, Normal Sensation Psychological: Normal affect, Normal Mood, - - not objectively delusional. not acting out on any active hallucinations. +Insightful. Diagnostic/Tx/Re-eval Impressions Brain CT 10/18/19 00:19 IMPRESSION: 1. Chronic involutional changes of the brain. 2. No CT evidence of acute intracranial hemorrhage. Electronically Signed: Alexandria Truong MD at 1:30 EDT , Service support , Chest X-Ray 10/18/19 00:19 IMPRESSION: 1. Right apical pulmonary nodule was present on the previous study. 2. Large left hilar masslike process. Differential considerations include lymphadenopathy, pulmonary mass or focal airspace disease. Electronically Signed: Alexandria Truong MD at 1:20 EDT , Service support , Chest CT 10/18/19 01:51 IMPRESSION: 1. Large lingular and left-sided hilar mass with left hilar lymphadenopathy and mediastinal lymphadenopathy. 2. Spiculated right upper lobe pulmonary nodule. Electronically Signed: Alexandria Truong MD at 2:33 EDT , Service support , 10/18/19 00:19 Brain/Head without Contrast [CT] Stat Chest 1 View (Portable) [RAD] Stat 10/18/19 01:51 CT Chest [Chest without Contrast] [CT] Stat Laboratory Results 10/18/19 10/18/19 10/18/19 00:27 00:27 00:42 WBC 11.5 H RBC 3.73 L Hgb 8.2 L Hct 28.0 L MCV 75.1 L MCH 22.0 L MCHC 29.3 L RDW Std Deviation 54.6 H RDW Coeff of Gayle 21.2 H Plt Count 200 Immature Gran % (Auto) 4.200 H Neut % (Auto) 77.3 H Lymph % (Auto) 13.1 L [place] % (Auto) 5.1 Eos % (Auto) 0.0 Baso % (Auto) 0.3 Absolute Neuts (auto) 8.9 H Absolute Lymphs (auto) 1.50 Nucleated RBC % 3.9 Differential Comment SCANNED Hypochromasia 3+ Microcytosis 3+ Target Cells RARE Crenated Cell 3+ Acanthocytes (Spur) 2+ Schistocytes 1+ Sodium 148 H Potassium 3.8 Chloride 114 H Carbon Dioxide 26.0 Anion Gap 8 BUN 42 H Creatinine 1.77 H Estim Creat Clear Calc 33.29 Est GFR (MDRD) Af Amer 48 L Est GFR (MDRD) Non-Af 40 L BUN/Creatinine Ratio 23.7 H Glucose 249 H Calcium 9.9 Troponin I 0.035 Urine Color Yellow Urine Clarity Clear Urine pH 5.0 Ur Specific [place] 1.025 Urine Protein 500 H Urine Glucose (UA) 100 H Urine Ketones 5 H Urine Occult Blood 50 H Urine Nitrite Negative Urine Bilirubin Negative Urine Urobilinogen Normal Ur Leukocyte Esterase 25 H Urine RBC 0-5 SEEN Urine WBC 10-25 SEEN Ur Squamous Epith Cells 0 SEEN Urine Bacteria 0 SEEN Hyaline Casts 0-5 SEEN Urine Mucus 0 SEEN POC Glucose 10/18/19 00:48 WBC RBC Hgb Hct MCV MCH MCHC RDW Std Deviation RDW Coeff of Gayle Plt Count Immature Gran % (Auto) Neut % (Auto) Lymph % (Auto) [place] % (Auto) Eos % (Auto) Baso % (Auto) Absolute Neuts (auto) Absolute Lymphs (auto) Nucleated RBC % Differential Comment Hypochromasia Microcytosis Target Cells Crenated Cell Acanthocytes (Spur) Schistocytes Sodium Potassium Chloride Carbon Dioxide Anion Gap BUN Creatinine Estim Creat Clear Calc Est GFR (MDRD) Af Amer Est GFR (MDRD) Non-Af BUN/Creatinine Ratio Glucose Calcium Troponin I Urine Color Urine Clarity Urine pH Ur Specific [place] Urine Protein Urine Glucose (UA) Urine Ketones Urine Occult Blood Urine Nitrite Urine Bilirubin Urine Urobilinogen Ur Leukocyte Esterase Urine RBC Urine WBC Ur Squamous Epith Cells Urine Bacteria Hyaline Casts Urine Mucus POC Glucose 218 H - Rhythm Strip Rhythm Strip: Sinus Tach Rate: 120 Ectopy: None - EKG Initial EKG Interpretation: No Acute Injury Pattern, Sinus Tachycardia, - - PACs Prior: Unchanged - Medical Decision Making Patient has a new mass showing up on his chest x-ray compared with June's chest x-ray. He states he had a is a nodule in his right upper lobe that was biopsied in May. He gets routine CT and/or PET scans, screening for lung cancer that he had in the past, however he does still smoke. This is suspicious for a mass now on his left side. CT scan was obtained and is consistent with a mass and hilar lymphadenopathy. I performed this without contrast because he has some mild renal insufficiency compared to his norm. He also has some other mild lab abnormalities; anemia microcytic, mild hyperglycemia he is known to be borderline diabetic, mild AST elevation in the 70s which is not very high but new for him, and slightly high sodium and chloride along with elevated BUN and creatinine which is more consistent with some mild dehydration. He was given IV fluids for that. He felt relatively well in the emergency department aside for some mild tachycardia prior to the fluids, his vital signs were unremarkable. I feel that he can follow-up closely as an outpatient for these issues. Discussed with son at length as well as the patient. They are comfortable with that plan. They understand that this is probably recurrence of his lung cancer. I advised that he abstain from taking the new medication mirtazapine. I am okay if he continues taking the melatonin. It is up to him if he wants to go back on the Remeron or not until he follows up with his doctor to determine future testing and medication management. ED Disposition - Plan for ED Patient: Disposition: Home or Assisted Living Diagnosis: Mass of left lung, Microcytic anemia, Mild dehydration, Acute renal insufficiency, Visual hallucinations Instructions: ED Insufficiency Renal, ED Nodule Solitary Pulmonary Referrals: Kevon Harrell MD [Primary Care Provider] - As soon as possible Additional Instructions: Stop taking the mirtazapine for now. You may continue taking the melatonin. You may resume taking the ropinirole, or you may continue without it until you see and discuss with your doctor.
[2019-10-18 00:44] LABS: Absolute Neutrophil Count 8.9 X10^3/uL (2.0-7.7); Basophil# 0.04 X10^3/uL; Basophil% 0.3 % (0-1); Hemoglobin 8.2 g/dL (13.0-16.5); Lymphocyte % 13.1 % (19-41); Mean Corp Hgb Conc 29.3 g/dL (32-36); Mean Corpuscular Volume 75.1 fL (80-94); Monocyte# 0.59 X10^3/uL; Monocyte% 5.1 % (0-10); NRBC Flagged by Analyzer 3.9 % (0-5); Neutrophil # 8.85 X10^3/uL (2.7-7.7); Neutrophil % 77.3 % (47-70); POSITIVE MORPHOLOGY YES; Platelet Count 200 K/mm3 (150-450); RBC Distribution Width CV 21.2 % (11.6-14.6); RBC Distribution Width SD 54.6 fl (35.1-43.9); Red Blood Count 3.73 M/mm3 (4.6-6.2); White Blood Count 11.5 K/mm3 (4.4-11.0)
[2019-10-18 00:47] LABS: Differential Indicated SCAN CRITERIA MET
[2019-10-18 00:48] LABS: Bacteria 0 SEEN /hpf (None Seen); Mucous, Urine 0 SEEN /hpf (<or=2+); Squamous Epithelial Cells - UA 0 SEEN /hpf (0-5)
[2019-10-18 00:49] LABS: Color, Urine Yellow (Yellow); Glucose, Dipstick 100 mg/dl (Normal); Ketone-Dipstick 5 mg/dl (Negative); Leukocyte Esterase-Dipstick 25 /ul (Negative); Nitrite-Dipstick Negative (Negative); Occult Blood-Urine 50 /ul (Negative); Protein-Dipstick 500 mg/dl (Negative); Specific Gravity, Urine 1.025 (1.002-1.030); Urine Bilirubin Dipstick Negative (Negative); Urine Clarity Clear (Clear); Urine Urobilinogen Normal (Normal)
[2019-10-18 00:55] LABS: Bedside Glucose 218 mg/dL (70-110)
[2019-10-18 01:04] LABS: Anion Gap 8 (5-15); BUN 42 mg/dL (7-18); BUN/Creat Ratio 23.7 RATIO (10-20); Calcium,Total 9.9 mg/dL (8.5-10.1); Chloride 114 mmol/L (98-107); Creatinine, Serum 1.77 mg/dL (0.70-1.30); EST Glomerular Filtration Rate 40 mL/min (>60); Est Glom Filt Rate - Afr Amer 48 mL/min (>60); Estimated Creatinine Clearance 33.29 ml/min; Glucose 249 mg/dL (74-106); Potassium 3.8 mmol/L (3.5-5.1); Sodium Level 148 mmol/L (136-145)
[2019-10-18 01:07] LABS: Hyaline Cast 0-5 SEEN /lpf (0-5); Red Blood Cells-Urine 0-5 SEEN /hpf (0-5); White Blood Cells 10-25 SEEN /hpf (0-5)
[2019-10-18 01:13] LABS: Acanthocytes 2+; Crenated RBC 3+; Differential Comment SCANNED; Hypochromasia 3+; Schistocytes 1+; Target Cells RARE
[2019-10-18 01:14] LABS: Microcytosis 3+
--- NOTE | 2019-10-18 01:51 | CT_ITS ---
STUDY: CT CHEST WITHOUT CONTRAST REASON FOR EXAM: Male, 79 years old patient presents for follow-up of a mass seen on radiographs. History of lung cancer diagnosed in 2015 and treated with radiation. RADIATION DOSAGE (If Supplied By Facility): CTDIvol = ( 13.91 ) mGy, DLP = ( 532.00 ) mGycm TECHNIQUE: Transaxial imaging was performed without the administration of intravenous contrast material. Multiplanar coronal and sagittal images were reformatted. Individualized dose optimization techniques were used for this CT. COMPARISON: CT of the chest dated there are 2016. FINDINGS: Cardiac monitoring leads are present. There is hyperinflation of the lungs consistent with chronic obstructive lung disease (COPD). There is a spiculated nodule within the right upper lobe measuring approximately 1.5 cm in size. There is a large spiculated lingular mass adjacent to left hilum measuring 6.8 x 4.9 x 6.6 cm in size. There is no demonstrated pleural abnormality. Normal heart and pericardium. There are calcifications of the coronary arteries. The lingula mass extends into the left hilar area making with hilar lymphadenopathy likely. The mass also extends into the pretracheal area and there is enlarged pretracheal lymphadenopathy. The right hilar area is within normal limits. Left pulmonary arteries difficult to visualize being incorporated by the large left-sided hilar and lingular mass. The right main pulmonary artery is well seen. There is atherosclerotic calcification of the aortic arch with tortuosity and elongation of the aortic arch and descending thoracic aorta. Maximum transverse dimension of the ascending thoracic aorta measures approximately 4 cm. There is an increased kyphosis of the thoracic spine. There is multilevel spondylosis. There is a nodule arising from the medial left kidney measuring approximately 1.6 cm. This was not visualized on the previous CT. There is a left adrenal nodule measuring approximately 2.2 cm in greatest dimension. CT/Chest without Contrast IMPRESSION: 1. Large lingular and left-sided hilar mass with left hilar lymphadenopathy and mediastinal lymphadenopathy. 2. Spiculated right upper lobe pulmonary nodule. Electronically Signed: Alexandria Truong MD at 2:33 EDT , Service support ,
[2019-10-18 02:23] VITALS: BP 159/86; PULSE 112; RESP 18; O2SAT 96
[2019-10-18 03:18] VITALS: BP 169/99; PULSE 108; RESP 21
--- OUTSIDE RECORDS SUMMARY | 2020-02-29 08:52 | XMS RPT_ITS | CCD ---
:1940 External Reference #:[id number] Author Organization [facility] Care Team Providers Name Role Phone Unavailable Unavailable Unavailable Results Result Name Value Range Unit Interpretation Flag Date Location cnpn on 2019-11-11 CNPN Telephone (RADTMN) Normal 11-11-2019 [facility] TIANA MARTÍNEZ ([id number]) 1940 [facility] Date Time Provider Department ([id number]) 11/11/19 [facility] During your visit today, we recorded the following informati on about you: Carmelo Rosen RN, RN 11/11/2019 9:17 AM Signed Returned a call to Mr. Martínez's son, Tiana. He wanted t o let me know that his father had taken a turn for the worst. He wanted to give m e the update that his father is now inpatient Hospice at [facility]. He wanted to let us know how grateful he is for the care Dr. Sanchez and team gave to his father. 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 [9507] Cmt: update Prescriptions as of 11/11/2019 Sig: [...] Urate [Mass/Vol] 5.3 4.0-8.1 mg/dL Normal 11-08-2019 [facility] (99763) Comment: Performed By: #### PT, CMP, MG1, PHOS, URIC, CBCDIF ####[facility] [address] [place], [place] [phone] type and screen on 2019-11-08 ABO/RH(D) O POSITIVE Normal 11-08-2019 [facility] (89275) Comment: Performed By: #### TSCR #### [facility] [address] [place], [place] [phone] protime on PT Coag (PPP) [Time] 1.0 0.9-1.3 s Normal [address] [facility] (98981) Comment: Result Comment: Vitamin K An tagonist (VKA) Therapeutic Range: INR 2 to 3 (Target INR of 2.5) Note: For patients treated w ith VKA drugs, such as warfarin, the [place] [employer] 2012 Guideline recommends a therapeutic INR range of 2 to 3 (target INR of 2.5). This recommendation includes high-risk patients with antiphospholipid syndrome with previous arterial or venous thromboembolism, current-generation mechanical or bioprosthetic aortic heart valve replacement. Note: Patients with music box mechanic al aortic valve replacement and additional risk factors for thromboembolic events (atrial fibrillation, previous thromboembolism, LV dysfunction, hypercoagulable conditions) or an older generation mecha nical AVR (i.e., ball in-Cage) or any mechanical MVR should have a INR therapeutic range of 2.5 to 3.5 (target INR of 3). Vitaliy GH, et al. Chest 2012 , 141:7S-47S Janet RA et al. [facility] 20 17, 70: 252-289 Performed By: #### PT, CMP, MG1, PHOS, URIC, CBCDIF ####[facility] [address] [place], [place] [phone] PT Coag (PPP) [Time] 10.7 9.7-13.0 sec Normal 11-07- [address] [facility] (02293) Comment: Performed By: #### PT, CMP, MG1, PHOS, URIC, CBCDIF ####[facility] [address] [place], [place] [phone] progress on 2019-10 PROGRESS HNO ID: [id number] Normal 11-08-2019 [facility] Author: Matthew Puri [facility] Service: Oncology Cl maricel Author Type: Physician ([id number]) Type: Progress Notes Filed: 11/11/2019 5:27 PM Note Text: HEMATOLOGY/ONCOLOGY SOLID TUMOR INPATIENT PROGRESS NOTE PATIENT NAME: Tiana Mratínez SERVICE DATE: 11/08/2019 TIME: 5:00 AM PRIMARY SERVICE: [address] DAY: 8 CODE STATUS: Code Status: [...] [facility] - Update post-rounds: unable to tolerate supination. [...] radiation, with ongoing discussion regarding transition to [facility] services given overall functional status limiting [...] and endobronchial biops ies -?Rapid On-Site Evaluation (OCRY): Preliminary cytology of t he lesion in [...] November 08, 2019 TIME: 5:00 AM PHONE: [phone] HEMATOLOGY/MEDICAL ONCOLOGY/[facility] BRAIN TUMOR CENTER STA FF: [...] [place] [id number] plan of care on PLAN OF CARE HNO ID: [id number] Normal 11-08-19 [facility] Author: Levy (Res) Yadira Lock ([id number]) Service: Oncology Author Type: Resident Type: Plan of Care Filed: 11/08/2019 12:37 PM Note Text: Point of Care Update / Plan of Care Plan to transition patient to Hospice with [facility] assuming care after transportation home from [facility] [place], with transportatio n (BLS) planned for 1500 today. Discussed plan with son (Mr. Tiana laguerre Jr) by phone. DNR-CC form signed and placed in green chart at [facility], along with paper prescriptions for oxycodone and lorazepam (due to issu es with electronic prescription). Plan for additional dose of lorazepam and oxycodone prior to transportation. Thank you for the opportunity to be involved in Mr. Martínez's care. Levy May MD phosphorus on 11-07 Phosphate [Mass/Vol] 4.2 2.7-4.8 mg/dL Normal [address] [facility] (53049) Comment: Performed By: #### PT, CMP, MG1, PHOS, URIC, CBCDIF ####[facility] [address] [place], [place] [phone] nursing prog on NURSING HNO ID: [id number] Normal 11-08-2019 [facility] Author: Tamara (Rn) [facility]IE [facility] Service: Hematology/Oncology [facility] Author Type: Registered Nurse ([id number]) Type: Nursing Progress Note Filed: 11/08/2019 5:26 PM Note Text: Nursing Progress Note Patient Name: Tiana Martínez Patient Location: [place] [address] Daily Note: Assumed care of pt at [...] by: Tamara John, JUNIE NURSING HNO ID: [id number] Normal 11-08-2019 [facility] Author: Loreta (Rn) JUNIE [facility] Service: ? [facility] Author Type: Registered Nurse ([id number]) Type: Nursing Progress Note Filed: 11/08/2019 6:58 AM Note Text: Nursing Progress Note Patient Name: Tiana Martínez Patient Location: [place] [address]- Daily Note: 2114: pt newly disoriented to place. Able to reorient patien t. Pt reports feeling more weak after getting into bed. house calls nurse practitioner notified. No new orders at this time. After 2118 breathing treatment, pt reports imp rovement in condition This note was completed by: Loreta Smith RN magnesium on 11-07 Magnesium [Mass/Vol] 3.1 1.7-2.3 mg/dL High [address] [facility] (50013) Comment: Performed By: #### PT, CMP, MG1, PHOS, URIC, CBCDIF ####[facility] [address] [place], [place] [phone] comp metabolic panel on 2019-11-08 Albumin [Mass/Vol] 2.9 3.9-4.9 g/dL Low 11-08-[address] [facility] (58038) Comment: Performed By: #### PT, CMP, MG1, PHOS, URIC, CBCDIF ####[facility] [address] [place], [place] [phone] ALP [Catalytic activity/Vol] 144 38-113 U/L High 0 11-08-[address] [facility] (99898) Comment: Performed By: #### PT, CMP, MG1, PHOS, URIC, CBCDIF ####[facility] [address] [place], [place] [phone] ALT [Catalytic activity/Vol] 69 10-54 U/L High 0 11-08-[address] [facility] (17299) Comment: Performed By: #### PT, CMP, MG1, PHOS, URIC, CBCDIF ####[facility] [address] [place], [place] [phone] Anion gap [Moles/Vol] 12 9-18 mmol/L Normal 11-08-[address] [facility] (89764) Comment: Performed By: #### PT, CMP, MG1, PHOS, URIC, CBCDIF ####[facility] [place] [phone] AST [Catalytic activity/Vol] 225 14-40 U/L High 0 11-08-[address] [facility] (31497) Comment: Performed By: #### PT, CMP, MG1, PHOS, URIC, CBCDIF ####[place] [address] [place] [phone] Bilirubin [Mass/Vol] 0.5 0.2-1.3 mg/dL Normal [address] [facility] (29247) Comment: Performed By: #### PT, CMP, MG1, PHOS, URIC, CBCDIF ####[facility] [place], [place] [phone] Calcium [Mass/Vol] 9.8 8.5-10.2 mg/dL Normal 11-08-[address] [facility] (32917) Comment: Performed By: #### PT, CMP, MG1, PHOS, URIC, CBCDIF ####[facility] [place], [place] [phone] Chloride [Moles/Vol] 101 97-105 mmol/L Normal [address] [facility] (86572) Comment: Performed By: #### PT, CMP, MG1, PHOS, URIC, CBCDIF ####[facility] [address] [place], [place] [phone] CO2 [Moles/Vol] 28 22-30 mmol/L Normal 11-08-2019 [facility] (65870) Comment: Performed By: #### PT, CMP, MG1, PHOS, URIC, CBCDIF ####[facility] [address] [place], [place] [phone] Creatinine [Mass/Vol] 1.26 0.73-1.22 mg/dL High 11-08-[address] [facility] (20810) Comment: Performed By: #### PT, CMP, MG1, PHOS, URIC, CBCDIF ####[facility] [place], [place] [phone] eGFR- Amer. >60 Normal 11-08-[address] [facility] (88605) Comment: Performed By: #### PT, CMP, MG1, PHOS, URIC, CBCDIF ####[facility] [address] [place], [place] [phone] GFR/1.73 sq M predicted among 55 . Normal 11-08-[address] [facility] non-blacks MDRD (S/P/Bld) [Vol (37281) rate/Area] Comment: Result Comment: eGFR (Estima alejandrina [...] #### PT, CMP, MG1, PHOS, URIC, CBCDIF ####[facility] [address] [place], [place] [phone] Glucose [Mass/Vol] 136 74-99 mg/dL High 11-08-[address] [facility] (34308) Comment: Result Comment: The [place] Diabetes Association (ADA) provides guidance for cutoff [...] for diagnosis of diabetes. Reference: Standards of [facility] Care in Diabetes 2016, [place] Diabetes Association. Diabetes Care. 2016.39(Suppl 1). Performed By: #### PT, CMP, MG1, PHOS, URIC, CBCDIF ####[facility] [address] [place], [place] [phone] Potassium [Moles/Vol] 4.3 3.7-5.1 mmol/L Normal 11-08-[address] [facility] (21694) Comment: Performed By: #### PT, CMP, MG1, PHOS, URIC, CBCDIF ####[facility] [address] [place], [place] [phone] Protein [Mass/Vol] 5.1 6.3-8.0 g/dL Low 11-08-[address] [facility] (50862) Comment: Performed By: #### PT, CMP, MG1, PHOS, URIC, CBCDIF ####[facility] [address] [place], [place] [phone] Sodium [Moles/Vol] 141 136-144 mmol/L Normal 11-08-[address] [facility] (34897) Comment: Performed By: #### PT, CMP, MG1, PHOS, URIC, CBCDIF ####[facility] [address] [place], [place] [phone] Urea nitrogen [Mass/Vol] 49 9-24 mg/dL High 11-[address] [facility] (75515) Comment: Performed By: #### PT, CMP, MG1, PHOS, URIC, CBCDIF ####[facility] [place], [place] [phone] cbc and differential on 2019-11-08 Abs Baso 0.00 <0.11 k/uL Normal 11-08-[address] [facility] (49083) Comment: Performed By: #### PT, CMP, MG1, PHOS, URIC, CBCDIF ####[facility] [place], [place] [phone] Abs Polk 0.19 <0.87 k/uL Normal 11-08-[address] [facility] (97801) Comment: Performed By: #### PT, CMP, MG1, PHOS, URIC, CBCDIF ####[place] [address] [place] [phone] Abs Neut 8.45 1.45-7.50 k/uL High 11-08-[address] [facility] (79713) Comment: Performed By: #### PT, CMP, MG1, PHOS, URIC, CBCDIF ####[place] [address] [place] [phone] Acanthocytes Few Normal 11-08-2019 [facility] (76832) Comment: Performed By: #### PT, CMP, MG1, PHOS, URIC, CBCDIF ####[facility] [place] [phone] Anisocytosis Ql (Bld) Present Normal 11-08-[address] [facility] (08416) Comment: Performed By: #### PT, CMP, MG1, PHOS, URIC, CBCDIF ####[place] [address] [place] [phone] Basophils/100 WBC (Bld) 0.0 % Normal [address] [facility] (97838) Comment: Performed By: #### PT, CMP, MG1, PHOS, URIC, CBCDIF ####[facility] [address] [place], [place] [phone] DTYPE Manual Diff Normal 11-08-2019 [facility] (20406) Comment: Performed By: #### PT, CMP, MG1, PHOS, URIC, CBCDIF ####[facility] [place], [place] [phone] Eosinophils (Bld) [#/Vol] 0.00 <0.46 k/uL Normal 10-[address] [facility] (88693) Comment: Performed By: #### PT, CMP, MG1, PHOS, URIC, CBCDIF ####[facility] [place], [place] [phone] Eosinophils/100 WBC (Bld) 0.0 % Normal 10-[address] [facility] (15768) Comment: Performed By: #### PT, CMP, MG1, PHOS, URIC, CBCDIF ####[facility] [place], [place] [phone] Erythrocyte distribution 27.9 11.5-15.0 % High 11-07 [facility] width (RBC) [Ratio] [facility] (22521) Comment: Performed By: #### PT, CMP, MG1, PHOS, URIC, CBCDIF ####[facility] [place] [phone] Hematocrit (Bld) [Volume 24.9 39.0-51.0 % Low 11-[address] [facility] fraction] (06597) Comment: Performed By: #### PT, CMP, MG1, PHOS, URIC, CBCDIF ####[facility] [address] [place], [place] [phone] Hemoglobin (Bld) 7.6 13.0-17.0 g/dL Low 11-08-2019 [facility] [Mass/Vol] [facility] (24676) Comment: Performed By: #### PT, CMP, MG1, PHOS, URIC, CBCDIF ####[facility] [place], [place] [phone] Lymphocytes (Bld) [#/Vol] 1.35 1.00-4.00 k/uL Normal 10-[address] [facility] (91212) Comment: Performed By: #### PT, CMP, MG1, PHOS, URIC, CBCDIF ####[facility] [place], [place] [phone] Lymphocytes/100 WBC (Bld) 12.5 % Normal 10-[address] [facility] (07606) Comment: Performed By: #### PT, CMP, MG1, PHOS, URIC, CBCDIF ####[place] [address] [place], [place] [phone] MCH (RBC) [Entitic mass] 25.3 26.0-34.0 pG Low 11-[address] [facility] (59103) Comment: Performed By: #### PT, CMP, MG1, PHOS, URIC, CBCDIF ####[facility] [place], [place] [phone] MCHC (RBC) [Mass/Vol] 30.5 30.5-36.0 g/dL Normal 11-08-[address] [facility] (70489) Comment: Performed By: #### PT, CMP, MG1, PHOS, URIC, CBCDIF ####[facility] [place], [place] [phone] MCV (RBC) [Entitic vol] 83.0 80.0-100.0 fL Normal 11-[address] [facility] (01568) Comment: Performed By: #### PT, CMP, MG1, PHOS, URIC, CBCDIF ####[facility] [place], [place] [phone] [place]% 3.6 % Normal 11-08-[address] [facility] (58842) Comment: Performed By: #### PT, CMP, MG1, PHOS, URIC, CBCDIF ####[facility] [address] [place], [place] [phone] Monocytes/100 WBC (Bld) 1.8 % Normal [address] [facility] (34371) Comment: Performed By: #### PT, CMP, MG1, PHOS, URIC, CBCDIF ####[facility] [address] [place], [place] [phone] Myelo% 3.6 % Normal 11-08-[address] [facility] (64291) Comment: Performed By: #### PT, CMP, MG1, PHOS, URIC, CBCDIF ####[facility] [address] [place] [phone] Neutrophils/100 WBC (Bld) 78.5 % Normal 10-[address] [facility] (98211) Comment: Performed By: #### PT, CMP, MG1, PHOS, URIC, CBCDIF ####[facility] [address] [place] [phone] NRBCs 5 0 /100 WBC High 11-08-[address] [facility] (12307) Comment: Performed By: #### PT, CMP, MG1, PHOS, URIC, CBCDIF ####[facility] [address] [place], [place] [phone] Ovalocytes Few Normal 11-08-2019 [facility] (82423) Comment: Performed By: #### PT, CMP, MG1, PHOS, URIC, CBCDIF ####[facility] [address] [place], [place] [phone] Platelet mean <<DO NOT REPORT>> 9.0-12.7 Normal 11-08-19 20 [facility] volume (Bld) [place] (70989) [Entitic vol] Comment: Performed By: #### PT, CMP, MG1, PHOS, URIC, CBCDIF ####[facility] [address] [place], [place] [phone] Platelets (Bld) Platelet estimate Normal 2019 [facility] [#/Vol] decreased [facility] (58058) Comment: Performed By: #### PT, CMP, MG1, PHOS, URIC, CBCDIF ####[facility] [place], [place] [phone] Platelets (Bld) [#/Vol] 36 150-400 k/uL Low [address] [facility] (05826) Comment: Result Comment: Result check ed and verified No clot detected. Performed By: #### PT, CMP, MG1, PHOS, URIC, CBCDIF ####[place] [address] [place], [place] [phone] Polychromasia Slight Normal 11-08-2019 [facility] (88709) Comment: Performed By: #### PT, CMP, MG1, PHOS, URIC, CBCDIF ####[facility] [place], [place] [phone] RBC (Bld) [#/Vol] 3.00 4.20-6.00 m/uL Low 11-08-2019 [facility] (96277) Comment: Performed By: #### PT, CMP, MG1, PHOS, URIC, CBCDIF ####[facility] [address] [place], [place] [phone] RBC Fragments Few Normal 11-08-2019 [facility] (25392) Comment: Performed By: #### PT, CMP, MG1, PHOS, URIC, CBCDIF ####[facility] [address] [place], [place] [phone] Spherocytes Few Normal 11-08-2019 [facility] (38392) Comment: Performed By: #### PT, CMP, MG1, PHOS, URIC, CBCDIF ####[facility] [address] [place], [place] [phone] Target Cells Few Normal 11-08-2019 [facility] (25642) Comment: Performed By: #### PT, CMP, MG1, PHOS, URIC, CBCDIF ####[facility] [address] [place], [place] [phone] TSH Qn Present Normal 11-08-[address] [facility] (35935) Comment: Performed By: #### PT, CMP, MG1, PHOS, URIC, CBCDIF ####[facility] [place], [place] [phone] WBC (Bld) [#/Vol] 10.77 3.70-11.00 k/uL Normal 11-08-[address] [facility] (52774) Comment: Performed By: #### PT, CMP, MG1, PHOS, URIC, CBCDIF ####[facility] [address] [place], [place] [phone] case managem on 202 CASE MANAGEM HNO ID: [id number] Normal 11-08-19 20 [facility] Author: Clau Mcintyre (Lisw) [facility] (72433) Service: Care Management Author Type: Fur Cutter Type: Care Mgt Progress Note Filed: 11/08/2019 [...] own home under care of [facility] [phone] HANDOFF COMMUNICATION: Handoff to: Primary Care Physician;Other Caregiver Primary Care Physician Name/Phone: Kevon Harrell (sent S [facility]) [phone] (Ph); AND Kaia Lou, (P h) Other Caregiver Name/Phone: [facility] ([phone]) TRANSPORTATION ARRANGEMENTS: Transportation Arrangements: Ambulance/[facility] [employer] Agency and Phone #:: [facility] [phone] Date of Trip: 11/08/19 Type of Service: BLS Non-emergency Is Patient Medicaid Pending?: No Discussion of financial coverage occurred with: Family [employer] Location: [place] Destination: Home: [address], [address], [place] [address] (Trip # [id number]) Financial Care Management Responsibility: None ADDITIONAL CONTACT RESOURCES: n/a DC to home today, as Physician stated that pt did not tolera te trial supination AND decision made to forego Radiation Therapy. D/C scheduled for 11/08/19 @ 3 pm (pick-up by [facility], BLS), transporting to home under care of [facility] ([phone]). SW/CM spoke w / [facility] Liaison (Katelynn) AND plant protection supervisor (Ro). Physician to sign Po rtable DNR (on green chart). Dr. Levy May informed that [facility] plant protection supervisor ( [facility]) requesting 2 comfort medications (10 tablets per prescriptio n, to cover until [facility] is able to get their own medications ordered). Physician provided hard copy of prescriptions, which pt's so n will have filled upon arrival home. Scripts sent with packet of inform ation. Son to get meds filled at [facility] in [place], [place], . SW/CM confirmed all d/c plans w/ son on phone. Son will alternate presence in home w/ a friend of his who has experience in c. Son state s he may not be able to stay w/ pt 04/12, but is making arrangements w/ fr iend to help. DME's (hospital bed AND 02) being delivered to pt's home tod ivania. [facility] coordinating delivery w/ pt's sonTiana [...] to get meds filled at local [facility]. CARIN Rainey, JANETH SIGNATURE: CARIN Blake, JANETH PATIENT NAME: Tiana castorena DATE: November 08, 2019 TIME: 11:46 AM PAGER/CONTACT #: [phone] xr chest 1v frontal port on 2019-11-07 XR CHEST 1V * * *Final Report* * * Normal 11-06 [facility] FRONTAL PORT DATE OF EXAM: Nov 07 2019 9:45AM [facility] ([id number]) YENY 5376 - XR CHEST 1V FRONTAL [...] unde rlying volume loss.. IMPRESSION: See result. Mask Design Engineer: SCOOBY Transcribe Date/Time: Nov 07 2019 11:16A Dictated by : GARY TAVERA MD This examination was interpreted and the report reviewed and electronically signed by: GARY TAVERA MD on Nov 07 2019 11:18AM EST [id number] uric acid on 11-06 Urate [Mass/Vol] 4.5 4.0-8.1 mg/dL Normal 11-07-2019 [facility] (67157) Comment: Performed By: #### PT, CMP, MG1, PHOS, URIC, CBCDIF ####[facility] [address] [place], [place] [phone] therapy nt on 11-06 THERAPY HNO ID: [id number] Normal 11-07-2019 [facility] NT Author: Brionna (Ot/L) [facility] Service: ? [facility] Author Type: Occupational Therapist ([id number]) Type: Therapy (PT/OT/Speech/Resp) Filed: 11/07/2019 2:29 PM Note Text: Occupational Therapy Evaluation SERVICE DATE: 11/07/2019 SERVICE TIME: 1250 to 1400 ROOM: [place] [address] Recommended Discharge Disposition: Home Recommended Discharge Disposition [...] mobility. Per pt, planning to d/c ho fl with Hospice. 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 SIGNATURE: Brionna Landers OT/L PATIENT NAME: Tiana Martínez DATE: November 07, 2019 TIME: 2:13 PM THERAPY HNO ID: [id number] Normal 11-07-2019 [facility] Author: Huy (Pt) [facility] Service: Physical Therapy [facility] Author Type: Physical Therapist ([id number]) Type: Therapy (PT/OT/Speech/Resp) Filed: 11/07/2019 9:53 AM Note Text: Physical Therapy Evaluation SERVICE DATE: 11/07/2019 SERVICE TIME: 16 to 0942 ROOM: [place] [address] Recommended Discharge Disposition: Home PT Anticipated Discharge [...] Weakness (gen eralized) Interventions Provided: Evaluation;Gait Training (51899) $ Evaluation-Moderate (83622) Billed Units: 1 unit Gait Training (79781) Treatment Minutes: 11 1 unit Skilled Intervention(s): [...] Standing Balance: Fair Patient able to maintain adolfo ce with handhold support, may require occasional minimal assistance Dynamic Standing Balance: Fair Patient accepts minimal chall enge, able to maintain balance while turning head/trunk JH-HLM: 7: Walk 25 feet or more Please see discipline specific clinical [facility] complete details for this therapy evaluation/treatment. SIGNATURE: Huy Brown PT PATIENT NAME: Tiana Martínez DATE: November 07, 2019 TIME: 9:51 AM protime on PT Coag (PPP) [Time] 1.0 0.9-1.3 s Normal [address] [facility] (71617) Comment: Result Comment: Vitamin K An tagonist (VKA) Therapeutic Range: INR 2 to 3 (Target INR of 2.5) Note: For patients treated w ith VKA drugs, such as warfarin, the [place] [employer] 2012 Guideline recommends a therapeutic INR range of 2 to 3 (target INR of 2.5). This recommendation includes high-risk patients with antiphospholipid syndrome with previous arterial or venous thromboembolism, current-generation mechanical or bioprosthetic aortic heart valve replacement. Note: Patients with music box mechanic al aortic valve replacement and additional risk factors for thromboembolic events (atrial fibrillation, previous thromboembolism, LV dysfunction, hypercoagulable conditions) or an older generation mecha nical AVR (i.e., ball in-Cage) or any mechanical MVR should have a INR therapeutic range of 2.5 to 3.5 (target INR of 3). Geraldinett GH, et al. Chest 2012 , 141:7S-47S Janet RA, et al. [facility] 20 , 70: 252-289 Performed By: #### PT, CMP, MG1, PHOS, URIC, CBCDIF ####[facility] [address] [place], [place] [phone] PT Coag (PPP) [Time] 10.6 9.7-13.0 sec Normal [address] [facility] (26143) Comment: Performed By: #### PT, CMP, MG1, PHOS, URIC, CBCDIF ####[facility] [address] [place], [place] [phone] progress on 2019-10 PROGRESS HNO ID: [id number] Normal 11-07-2019 [facility] Author: Matthew Puri Lock ([id number]) Service: Oncology Author Type: Physician Type: Progress [...] [phone] 240 ? Output (ml) 1149 995 5259 1375 175 Net (ml) [phone] Labs CBC: Recent Labs 11/07/19 0535 11/06/19 [...] NaCl 0.9%, Last Rate: 10 mL/hr (11/04/19 6466) Micro BCx 10/[address] [...] pending 10/31/19 1215 vte pharmacologic prophylaxis contraindicated (mt,wv) 10/31/19 1215 pneumatic compression stockings (mt,wv) 10/31/19 1215 activity - mobilize patient (mt,wv) SIGNATURE: Skylar Seay MD PHD PGY-1 PATIENT NAME: Tiana medina DATE: 11/07/2019 TIME: 7:58 AM PAGER: [phone] Note: These recommendations are not final until staffed by max harris HEMATOLOGY/MEDICAL ONCOLOGY/[facility] BRAIN TUMOR CENTER STA FF: [...] Otherw [place] [id number] plan of care on PLAN OF CARE HNO ID: [id number] Normal 11-07-19 [facility] Author: Levy (ResAnatoly May [facility] ([id number]) Service: Oncology Author Type: Resident Type: Plan of Care Filed: 11/07/2019 5:57 PM Note Text: Point of Contact Update / Family Discussion Called son Mr. Tanya Gutierrez at listed number ([phone]) and placed on speakerphone to facilitate family [...] MRI and plan for transition to home [facility] e services. Upon clarification, Mr. Martínez [...] will be made for discharge from the [facility] at earliest possibility - pending establishment with [...] May MD PLAN OF CARE HNO ID: [id number] Normal 11-07-19 [facility] Author: Ilia Nevarez [facility] ([id number]) Service: Radiation Oncology Author Type: Physician Type: [...] Arlette Weathers MD Radiation Oncology Resident Pager: [phone] Case reviewed with the resident and I concur with her recomm endations. Ilia Nevarez MD Covering for Attending Dr. Sam Sanchez. phosphorus on 11-06 Phosphate [Mass/Vol] 3.2 2.7-4.8 mg/dL Normal [address] [facility] (65545) Comment: Performed By: #### PT, CMP, MG1, PHOS, URIC, CBCDIF ####[facility] [address] [place], [place] [phone] nutrition on 11-06 NUTRITION HNO ID: [id number] Normal 11-07-2019 [facility] Author: Analisa Rivera (Dtr) Gerard Lock ([id number]) Service: Nutrition Therapy Author Type: Marriage And Family Teacher Type: Nutrition Filed: 11/07/2019 11:59 AM Note Text: NUTRITION THERAPY GATEKEEPER NOTE SERVICE DATE: 11/07/2019 SERVICE TIME: 7:40 [...] PAGER: nursing prog on NURSING HNO ID: [id number] Normal 11-07-2019 [facility] PROG Author: Loreta (Rn) JUN[facility] Service: ? [facility] Author Type: Registered Nurse ([id number]) Type: Nursing Progress Note Filed: 11/07/2019 5:55 AM Note Text: Nursing Progress Note Patient Name: Tiana Martínez Patient Location: [place] [address] Daily Note: 2149: pt BP 167/71. Pt denied symptoms. house calls nurse practitioner notified, co reg ordered and administered per JUL 2249: marketing information manager physician at bedside after being paged by RT d /t pt c/o SOB and wheezing. Pt was given breathing treatment. house calls nurse practitioner orde red continuous pulse ox. 0534: pt BP 165/89. Pt denies symptoms. house calls nurse practitioner notified. No new orders at this time This note was completed by: Loreta Smith RN magnesium on 11-06 Magnesium [Mass/Vol] 2.7 1.7-2.3 mg/dL High [address] [facility] (91718) Comment: Performed By: #### PT, CMP, MG1, PHOS, URIC, CBCDIF ####[facility] [address] [place] [phone] gasv + all on 11-06 Base Excess 6 mmol/L Normal 11-07-2019 [facility] (40510) Comment: Performed By: #### VALLBG ## ##[facility] [place], [place] [phone] Blood Gas Comm, Gerson . Normal 11-07-[address] [facility] (36739) Comment: Performed By: #### VALLBG ## ##[facility] [place], [place] [phone] Calcium [Mass/Vol] 1.32 1.08-1.30 mmol/L High 11-07-[address] [facility] (22985) Comment: Performed By: #### VALLBG ## ##[place] [address] [address] [place], [place] [phone] Carboxyhemoglobin,Gerson 2.2 <2.1 % High 11-07-[address] [facility] (26324) Comment: Performed By: #### VALLBG ## ##[place] [address] [address] [place], [place] [phone] CO2 [Moles/Vol] 33 25-29 mmol/L High 11-07-2019 [facility] (33045) Comment: Performed By: #### VALLBG ## ##[place] [address] [address] [place], [place] [phone] Glucose [Mass/Vol] 142 60-105 mg/dL High 11-07-[address] [facility] (08825) Comment: Performed By: #### VALLBG ## ##[place] [address] [address] [place], [place] [phone] HCO3 (Bld) [Moles/Vol] 31 24-28 mmol/L High [address] [facility] (82971) Comment: Performed By: #### VALLBG ## ##[place] [address] [address], [place] [phone] Hematocrit (Bld) [Volume 26.0 39.0-51.0 % Low 11-[address] [facility] fraction] (76719) Comment: Performed By: #### VALLBG ## ##[place] [address] [address] [place], [place] [phone] Hemoglobin (Bld) 8.4 13.0-17.0 g/dL Low 11-07-2019 [facility] [Mass/Vol] [facility] (47306) Comment: Performed By: #### VALLBG ## ##[place] [address] [address] [place], [place] [phone] Lactate [Moles/Vol] 1.7 0.5-2.2 mmol/L Normal 11-07-[address] [facility] (23521) Comment: Performed By: #### VALLBG ## ##[place] [address] [address] [place], [place] [phone] Methemoglobin 0.9 <1.6 % Normal 11-07-2019 [facility] (12774) Comment: Performed By: #### VALLBG ## ##[place] [address] [address] [place], [place] [phone] Oxygen (Bld) [Partial 71 35-45 mm Hg High 11-07-[address] [facility] pressure] (33838) Comment: Performed By: #### VALLBG ## ##[place] [address] [address], [place] [phone] Oxyhemoglobin, Gerson. 90 60-85 % High 11-07-[address] [facility] (86310) Comment: Performed By: #### VALLBG ## ##[place] [address] [address], [place] [phone] pCO2 49 42-55 mm Hg Normal 11-07-[address] [facility] (23475) Comment: Performed By: #### VALLBG ## ##[place] [address] [address], [place] [phone] pCO2, Temp Correct 49 42-55 mm Hg Normal 11-07-[address] [facility] (46203) Comment: Performed By: #### VALLBG ## ##[place] [address] [address], [place] [phone] pH (Bld) 7.42 7.32-7.42 [pH] Normal 11-07-[address] [facility] (74175) Comment: Performed By: #### VALLBG ## ##[place] [address] [address] [place], [place] [phone] pH, Temp Corrected 7.42 7.32-7.42 Normal 11-07-[address] [facility] (04803) Comment: Performed By: #### VALLBG ## ##[place] [address] [address], [place] [phone] pO2, Temp Corrected 71 35-45 mm Hg High 11-07-[address] [facility] (22745) Comment: Performed By: #### VALLBG ## ##[place] [address] [address], [place] [phone] Potassium [Moles/Vol] 4.0 3.5-5.0 mmol/L Normal 11-07-[address] [facility] (74357) Comment: Performed By: #### VALLBG ## ##[place] [address] [address], [place] [phone] Sodium [Moles/Vol] 140 136-144 mmol/L Normal 11-07-[address] [facility] (19308) Comment: Performed By: #### VALLBG ## ##[place] [address] [address], [place] [phone]- [phone] consult on CONSULT HNO ID: [id number] Normal 11-07-2019 [facility] Author: Della De Pasquale [facility] ([id number]) Service: Palliative Care Author Type: Nurse Practitioner Type: Consults Filed: 11/07/2019 4:49 PM Note Text: PALLIATIVE MEDICINE INITIAL CONSULT To contact the [facility] palliative medicine service from 5p - 8a on weekdays and anytime during the weekend, please go to the On -Call Directory and type palliative in the search bar. We are jules fuentes under [facility]. SERVICE DATE: 11/07/2019 PATIENT NAME: Tiana [...] a 79 year old m tamara from [place], [place] admitted from OSH 10/31/19 with dyspnea. [...] bicytopenia. Patient states he lives alone in [place]. Son lives nearby. 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 [facility] has both palliative medicine and hospice. I [...] shared electronic medical record. SIGNATURE: Della Giordano APRN.YOUNG ADULT LIBRARIAN PAGER/CONTACT #: [phone] comp metabolic panel on 2019-11-07 Albumin [Mass/Vol] 2.8 3.9-4.9 g/dL Low 11-07-[address] [facility] (41551) Comment: Performed By: #### PT, CMP, MG1, PHOS, URIC, CBCDIF ####[facility] [address] [place] [phone] ALP [Catalytic activity/Vol] 150 38-113 U/L High 0 11-07-[address] [facility] (46111) Comment: Performed By: #### PT, CMP, MG1, PHOS, URIC, CBCDIF ####[place] [address] [place] [phone] ALT [Catalytic activity/Vol] 68 10-54 U/L High 0 11-07-[address] [facility] (80295) Comment: Performed By: #### PT, CMP, MG1, PHOS, URIC, CBCDIF ####[facility] [address] [place], [place] [phone] Anion gap [Moles/Vol] 8 9-18 mmol/L Low 11-07-[address] [facility] (01656) Comment: Performed By: #### PT, CMP, MG1, PHOS, URIC, CBCDIF ####[facility] [address] [place], [place] [phone] AST [Catalytic activity/Vol] 224 14-40 U/L High 0 11-07-[address] [facility] (22434) Comment: Performed By: #### PT, CMP, MG1, PHOS, URIC, CBCDIF ####[facility] [address] [place], [place] [phone] Bilirubin [Mass/Vol] 0.6 0.2-1.3 mg/dL Normal [address] [facility] (35278) Comment: Performed By: #### PT, CMP, MG1, PHOS, URIC, CBCDIF ####[facility] [place], [place] [phone] Calcium [Mass/Vol] 9.5 8.5-10.2 mg/dL Normal 11-07-[address] [facility] (47575) Comment: Performed By: #### PT, CMP, MG1, PHOS, URIC, CBCDIF ####[facility] [place] [phone] Chloride [Moles/Vol] 104 97-105 mmol/L Normal [address] [facility] (19929) Comment: Performed By: #### PT, CMP, MG1, PHOS, URIC, CBCDIF ####[place] [address] level[place] [phone] CO2 [Moles/Vol] 30 22-30 mmol/L Normal 11-07-2019 [facility] (01441) Comment: Performed By: #### PT, CMP, MG1, PHOS, URIC, CBCDIF ####[facility] [place], [place] [phone] Creatinine [Mass/Vol] 1.20 0.73-1.22 mg/dL Normal 11-07-[address] [facility] (61723) Comment: Performed By: #### PT, CMP, MG1, PHOS, URIC, CBCDIF ####[facility] [place], [place] [phone] eGFR- Amer. >60 Normal 11-07-[address] [facility] (09354) Comment: Performed By: #### PT, CMP, MG1, PHOS, URIC, CBCDIF ####[facility] [place], [place] [phone] GFR/1.73 sq M predicted among 58 . Normal 11-07-[address] [facility] non-blacks MDRD (S/P/Bld) [Vol (33106) rate/Area] Comment: Result Comment: eGFR (Estima alejandrina [...] #### PT, CMP, MG1, PHOS, URIC, CBCDIF ####[facility] [address] [employer] [place], [place] [phone] Glucose [Mass/Vol] 123 74-99 mg/dL High 11-07-[address] [facility] (76826) Comment: Result Comment: The [place] Diabetes Association (ADA) provides guidance for cutoff [...] for diagnosis of diabetes. Reference: Standards of [facility] Care in Diabetes 2016, [place] [employer] Association. Diabetes Care. 2016.39(Suppl 1). Performed By: #### PT, CMP, MG1, PHOS, URIC, CBCDIF ####[facility] [address] [place], [place] [phone] Potassium [Moles/Vol] 3.9 3.7-5.1 mmol/L Normal 11-07-[address] [facility] (45757) Comment: Performed By: #### PT, CMP, MG1, PHOS, URIC, CBCDIF ####[facility], [place] [phone] Protein [Mass/Vol] 5.0 6.3-8.0 g/dL Low 11-07-[address] [facility] (98440) Comment: Performed By: #### PT, CMP, MG1, PHOS, URIC, CBCDIF ####[place] [address] [place] [phone] Sodium [Moles/Vol] 142 136-144 mmol/L Normal 11-07-[address] [facility] (61943) Comment: Performed By: #### PT, CMP, MG1, PHOS, URIC, CBCDIF ####[place] [address] [place] [phone] Urea nitrogen [Mass/Vol] 37 9-24 mg/dL High 11-[address] [facility] (69104) Comment: Performed By: #### PT, CMP, MG1, PHOS, URIC, CBCDIF ####[place] [address] [place] [phone] cbc and differential on 2019-11-07 Abs Baso 0.00 <0.11 k/uL Normal 11-07-[address] [facility] (83093) Comment: Performed By: #### PT, CMP, MG1, PHOS, URIC, CBCDIF ####[place] [address] [place]andT[place] [phone] Abs Polk 0.28 <0.87 k/uL Normal 11-07-[address] [facility] (67786) Comment: Performed By: #### PT, CMP, MG1, PHOS, URIC, CBCDIF ####[place] [address] [place]andT[place] [phone] Abs Neut 8.02 1.45-7.50 k/uL High 11-07-[address] [facility] (46912) Comment: Performed By: #### PT, CMP, MG1, PHOS, URIC, CBCDIF ####[facility] [place], [place] [phone] Acanthocytes Few Normal 11-07-2019 [facility] (63314) Comment: Performed By: #### PT, CMP, MG1, PHOS, URIC, CBCDIF ####[place] [address] [place], [place] [phone] Anisocytosis Ql (Bld) Present Normal 11-07-[address] [facility] (07697) Comment: Performed By: #### PT, CMP, MG1, PHOS, URIC, CBCDIF ####[place] [address] [place], [place] [phone] Basophils/100 WBC (Bld) 0.0 % Normal [address] [facility] (95025) Comment: Performed By: #### PT, CMP, MG1, PHOS, URIC, CBCDIF ####[place] [address], [place] [phone] DTYPE Manual Diff Normal 11-07-2019 [facility] (16995) Comment: Performed By: #### PT, CMP, MG1, PHOS, URIC, CBCDIF ####[place] [address] [place], [place] [phone] Eosinophils (Bld) [#/Vol] 0.00 <0.46 k/uL Normal 10-[address] [facility] (09159) Comment: Performed By: #### PT, CMP, MG1, PHOS, URIC, CBCDIF ####[place] [address] [place], [place] [phone] Eosinophils/100 WBC (Bld) 0.0 % Normal 10-[address] [facility] (04411) Comment: Performed By: #### PT, CMP, MG1, PHOS, URIC, CBCDIF ####[facility] [address] [place], [place] [phone] Erythrocyte distribution 27.9 11.5-15.0 % High 11-06 [facility] width (RBC) [Ratio] [facility] (39601) Comment: Performed By: #### PT, CMP, MG1, PHOS, URIC, CBCDIF ####[facility] [place], [place] [phone] Hematocrit (Bld) [Volume 26.0 39.0-51.0 % Low 11-[address] [facility] fraction] (92063) Comment: Performed By: #### PT, CMP, MG1, PHOS, URIC, CBCDIF ####[facility] [place], [place] [phone] Hemoglobin (Bld) 7.7 13.0-17.0 g/dL Low 11-07-2019 [facility] [Mass/Vol] [place] (87237) Comment: Performed By: #### PT, CMP, MG1, PHOS, URIC, CBCDIF ####[facility] [address] [place], [place] [phone] Lymphocytes (Bld) [#/Vol] 1.80 1.00-4.00 k/uL Normal 10-[address] [facility] (52209) Comment: Performed By: #### PT, CMP, MG1, PHOS, URIC, CBCDIF ####[facility] [address] [place], [place] [phone] Lymphocytes/100 WBC (Bld) 16.7 % Normal 10-[address] [facility] (32095) Comment: Performed By: #### PT, CMP, MG1, PHOS, URIC, CBCDIF ####[facility] [address] [place], [place] [phone] MCH (RBC) [Entitic mass] 24.4 26.0-34.0 pG Low 11-[address] [facility] (23318) Comment: Performed By: #### PT, CMP, MG1, PHOS, URIC, CBCDIF ####[facility], [place] [phone] MCHC (RBC) [Mass/Vol] 29.6 30.5-36.0 g/dL Low 11-07-[address] [facility] (39685) Comment: Performed By: #### PT, CMP, MG1, PHOS, URIC, CBCDIF ####[facility] [address], [place] [phone] MCV (RBC) [Entitic vol] 82.5 80.0-100.0 fL Normal 11-[address] [facility] (73629) Comment: Performed By: #### PT, CMP, MG1, PHOS, URIC, CBCDIF ####[facility] [place]and[place] [phone] [place]% 1.8 % Normal 11-07-[address] [facility] (74591) Comment: Performed By: #### PT, CMP, MG1, PHOS, URIC, CBCDIF ####[facility] [place]and[place] [phone] Monocytes/100 WBC (Bld) 2.6 % Normal [address] [facility] (23042) Comment: Performed By: #### PT, CMP, MG1, PHOS, URIC, CBCDIF ####[facility] [place]and[place] [phone] Myelo% 4.4 % Normal 11-07-[address] [facility] (43370) Comment: Performed By: #### PT, CMP, MG1, PHOS, URIC, CBCDIF ####[facility] [address] [place], [place] [phone] Neutrophils/100 WBC (Bld) 74.5 % Normal 10-[address] [facility] (65461) Comment: Performed By: #### PT, CMP, MG1, PHOS, URIC, CBCDIF ####[facility] [address] [place], [place] [phone] NRBCs 18 0 /100 WBC High 11-07-[address] [facility] (76241) Comment: Performed By: #### PT, CMP, MG1, PHOS, URIC, CBCDIF ####[facility] [address] [place], [place] [phone] Ovalocytes Few Normal 11-07-2019 [facility] (11473) Comment: Performed By: #### PT, CMP, MG1, PHOS, URIC, CBCDIF ####[facility] [address] [place], [place] [phone] Platelet mean <<DO NOT REPORT>> 9.0-12.7 Normal 11-07-19 20 [facility] volume (Bld) Clevela nd (72597) [Entitic vol] Comment: Performed By: #### PT, CMP, MG1, PHOS, URIC, CBCDIF ####[facility] [place], [place] [phone] Platelets (Bld) [#/Vol] 36 150-400 k/uL Low [address] [facility] (35426) Comment: Result Comment: Result check ed and verified No clot detected. Performed By: #### PT, CMP, MG1, PHOS, URIC, CBCDIF ####[facility] [address] [place], [place] [phone] Platelets (Bld) Platelet estimate Normal 2019 [facility] [#/Vol] decreased [facility] (21443) Comment: Performed By: #### PT, CMP, MG1, PHOS, URIC, CBCDIF ####[facility] [address] [place], [place] [phone] Polychromasia Slight Normal 11-07-2019 [facility] [facility] (73376) Comment: Performed By: #### PT, CMP, MG1, PHOS, URIC, CBCDIF ####[facility] [address] [place], [place] [phone] RBC (Bld) [#/Vol] 3.15 4.20-6.00 m/uL Low 11-07-2019 [facility] ([id number]) Comment: Performed By: #### PT, CMP, MG1, PHOS, URIC, CBCDIF ####[facility] [address] [place], [place] [phone] RBC Fragments Few Normal 11-07-2019 [facility] (25937) Comment: Performed By: #### PT, CMP, MG1, PHOS, URIC, CBCDIF ####[facility] [address] [place], [place] [phone] TSH Qn Present Normal 11-07-[address] [facility] (23564) Comment: Performed By: #### PT, CMP, MG1, PHOS, URIC, CBCDIF ####[facility] [place], [place] [phone] WBC (Bld) [#/Vol] 10.76 3.70-11.00 k/uL Normal 11-07-[address] [facility] (90599) Comment: Performed By: #### PT, CMP, MG1, PHOS, URIC, CBCDIF ####[facility] [place], [place] [phone] case managem on CASE MANAGEM HNO ID: [id number] Normal 11-07-19 20 [facility] Author: Raisa JasmineRn) JUNIE Mcfarlane [facility] ([id number]) Service: Care Management Author Type: Registered Nurse [...] CM confirmed with Saud [facility] [phone]. CM placed referral. Tiana states patient will go to his own home . Tiana plans on going to patient's home tomorrow to clear out space for H ospital Bed and Home Oxygen. This CM spoke with Ro from Hospice who states they will contact son tomorrow morning. CM informed Ro Trans portation is set for 3pm tomorrow to leave [facility]. Trip [phone] . Ro states this is plenty of [...] home with Hospice. Please page [place] nd Equipment Installation Professional @[phone] to coordinate and assist with discharge plann ing. If no weekend discharge, Equipment Installation Professional will reassess on Sunday for ongoing coordination of discharge plan. SIGNATURE: Raisa Mcfarlane RN PATIENT NAME: Tiana Martínez DATE: November 07, 2019 TIME: 5:00 PM PAGER/CONTACT #: [phone] CASE MANAGEM HNO ID: [id number] Normal 11-07-19 [facility] Author: CARIN Garland ([id number]) Service: Care Management Author Type: Fur Cutter Type: Care Mgt Progress Note Filed: 11/07/2019 3:55 PM Note Text: CARE MANAGEMENT WEEKEND PLANNING NOTE DISCHARGE OR POSSIBLE DISCHARGE Date/Time: TBD Disposition: TBD Transport: Family will transport at time of discharge. Other Concerns: Weekend Equipment Installation Professional Pager #: G Building - [phone] H Building - [phone] J Building - [phone] M Building - [phone] Primary medical team to have meeting with family to discuss plan of care. Dispo planning pending family outcome. Pt will possibly need to provide choices for hospice. (Home PT vs Outpatient PT vs Hospice) Son has discussed an agency ([facility]) however the [facility] team has not had plan of care meeting and no referrals has been sent. ? Pt's family will transport at time of discharge. SIGNATURE: CARIN Garland PATIENT NAME: Tiana Martínez DATE: November 07, 2019 TIME: 3:52 PM PAGER/CONTACT #: [phone] xr chest 1v frontal port on 2019-11-06 XR CHEST 1V * * *Final Report* * * Normal 11-05 [facility] FRONTAL PORT DATE OF EXAM: Nov 06 2019 1:47PM [facility] ([id number]) YENY 5376 - XR CHEST 1V FRONTAL [...] right hilum. Other: . IMPRESSION: See result. Mask Design Engineer: PSCKorey Transcribe Date/Time: Nov 06 2019 2:19P Dictated by : NAVA KYLE MD This examination was interpreted and the report reviewed and electronically signed by: NAVA KYLE MD on Nov 06 2019 2:20PM EST [id number] vitamin b12 on 2019 Cobalamin (Vitamin B12) [phone] pg/mL Normal 2019 [facility] [Mass/Vol] [facility] (13472) Comment: Performed By: #### IPFR, B12 , SERFOL ####[facility] [address] [place] [address] [phone] uric acid on 11-05 Urate [Mass/Vol] 4.7 4.0-8.1 mg/dL Normal 11-06-2019 [facility] (86438) Comment: Performed By: #### CMP, URIC ####[facility] [address], [place] [phone] Urate [Mass/Vol] 5.2 4.0-8.1 mg/dL Normal 11-06-2019 [facility] (35920) Comment: Performed By: #### PT, CMP, MG1, PHOS, URIC, CBCDIF ####[facility] [address] [place], [place] [phone] protime on PT Coag (PPP) [Time] 10.8 9.7-13.0 sec Normal [address] [facility] (14982) Comment: Performed By: #### PT, CMP, MG1, PHOS, URIC, CBCDIF ####[facility] [address] [place], [place] [phone] PT Coag (PPP) [Time] 1.0 0.9-1.3 s Normal [address] [facility] (57469) Comment: Result Comment: Vitamin K An tagonist (VKA) Therapeutic Range: INR 2 to 3 (Target INR of 2.5) Note: For patients treated w ith VKA drugs, such as warfarin, the [place] [employer] 2012 Guideline recommends a therapeutic INR range of 2 to 3 (target INR of 2.5). This recommendation includes high-risk patients with antiphospholipid syndrome with previous arterial or venous thromboembolism, current-generation mechanical or bioprosthetic aortic heart valve replacement. Note: Patients with music box mechanic al aortic valve replacement and additional risk factors for thromboembolic events (atrial fibrillation, previous thromboembolism, LV dysfunction, hypercoagulable conditions) or an older generation mecha nical AVR (i.e., ball in-Cage) or any mechanical MVR should have a INR therapeutic range of 2.5 to 3.5 (target INR of 3). Viatliy GH, et al. Chest 2012 , 141:7S-47S Janet RA, et al. [facility] , 70: 252-289 Performed By: #### PT, CMP, MG1, PHOS, URIC, CBCDIF ####[facility] [address] [place], [place] [phone] progress on 2019-10 PROGRESS HNO ID: [id number] Normal 11-06-2019 [facility] Author: Matthew Lock ([id number]) Service: Oncology Author Type: Physician Type: Progress [...] [phone] ? Output (ml) 2800 5693 004 3318 200 Net (ml) -[phone] [...] pending 10/31/19 1215 vte pharmacologic prophylaxis contraindicated (mt,wv) 10/31/19 1215 pneumatic compression stockings (mt,wv) 10/31/19 1215 activity - mobilize patient (mt,wv) SIGNATURE: Skylar Seay MD PHD PGY-1 PATIENT NAME: Tiana medina DATE: 11/06/2019 TIME: 7:58 AM PAGER: [phone] Note: These recommendations are not final until staffed by max harris HEMATOLOGY/MEDICAL ONCOLOGY/[facility] BRAIN TUMOR HOBBS STA FF: STAFF PHYSICIAN NOTE OF PERSONAL [...] [place] [id number] plan of care on PLAN OF CARE HNO ID: [id number] Normal 11-06-19 [facility] Author: Levy (Res) Yadira Lock ([id number]) Service: Oncology Author Type: Resident Type: Plan [...] preclusive of safe administration of chemotherapy, in [facility] case discussions pertaining to goals of care, palliative efforts (such as radiation), and symptom management may be more appropriate. Will plan to discuss further with patient and son at bedside tomorrow (Monday 11/06) when Tiana Gutierrez returns to bedside to visit. Levy May MD phosphorus on 11-05 Phosphate [Mass/Vol] 3.4 2.7-4.8 mg/dL Normal [address] [facility] (62915) Comment: Performed By: #### PT, CMP, MG1, PHOS, URIC, CBCDIF ####[facility] [address] [place], [place] [phone] path interp w cbcdif on 2019-11-06 Abs Baso 0.00 <0.11 k/uL Normal 11-06-[address] [facility] (88545) Comment: Performed By: #### CITPLT, S LATESHA ####[address] [place] [address] [phone] Abs Polk 0.11 <0.87 k/uL Normal 11-06-[address] [facility] (30849) Comment: Performed By: #### CITPLT, S LATESHA ####[place] [address] [address] [place] [address] Abs Neut 8.28 1.45-7.50 k/uL High 11-06-[address] [facility] (02091) Comment: Performed By: #### CITPLT, S LATESHA ####[place] [address] [place] [address] [phone] Absolute nRBC 0.97 <0.01 k/uL High 11-06-2019 [facility] (46290) Comment: Performed By: #### CITPLT, S LATESHA ####[place] [address] [place] [address] [phone] ANC(includeSEG+BAND) 8.28 k/uL Normal [address] [facility] (84477) Comment: Performed By: #### CITPLT, S LATESHA ####[facility] [place] [address] [phone] Anisocytosis Ql (Bld) Present Normal 11-06-[address] [facility] (17924) Comment: Performed By: #### CITPLT, S LATESHA ####[facility] [address] [phone] Basophils/100 WBC (Bld) 0.0 % Normal [address] [facility] (44548) Comment: Performed By: #### CITPLT, S LATESHA ####[facility] [address] [place] [address] [phone] DTYPE Manual Diff Normal 11-06-2019 [facility] (93024) Comment: Performed By: #### CITPLT, S LATESHA ####[address] [place] [address] [phone] Eosinophils (Bld) [#/Vol] 0.00 <0.46 k/uL Normal 10-[address] [facility] (71004) Comment: Performed By: #### CITPLT, S LATESHA ####[place] [address] [place] [address] [phone] Eosinophils/100 WBC (Bld) 0.0 % Normal 10-[address] [facility] (97749) Comment: Performed By: #### CITPLT, S LATESHA ####[place] [address] [place] [address] [phone] Erythrocyte distribution 27.1 11.5-15.0 % High 11-05 [facility] width (RBC) [Ratio] [facility] (50684) Comment: Performed By: #### CITPLT, S LATESHA ####[facility] [place] [address] [phone] Hematocrit (Bld) [Volume 26.8 39.0-51.0 % Low 11-05 [facility] (74650) Comment: Performed By: #### CITPLT, S LATESHA ####[place] [address] [place] [address] [phone] Hemoglobin (Bld) 8.1 13.0-17.0 g/dL Low 11-06-2019 [facility] [Mass/Vol] [facility] (24225) Comment: Performed By: #### CITPLLittle S LATESHA ####[address] [place] [address] [phone] Lymphocytes (Bld) [#/Vol] 1.18 1.00-4.00 k/uL Normal 10-[address] [facility] (22504) Comment: Performed By: #### CITPLLittle S LATESHA ####[address] [place] [address] [phone] Lymphocytes/100 WBC (Bld) 11.0 % Normal 10-[address] [facility] (96896) Comment: Performed By: #### CITPLT S LATESHA ####[place] [address] [phone] MCH (RBC) [Entitic mass] 24.8 26.0-34.0 pG Low 11-[address] [facility] (42700) Comment: Performed By: #### CITPLT, S LATESHA ####[place] [address] [phone] MCHC (RBC) [Mass/Vol] 30.2 30.5-36.0 g/dL Low 11-06-[address] [facility] (06767) Comment: Performed By: #### CITPLT, S LATESHA ####[address] [place] [address] [phone] MCV (RBC) [Entitic vol] 82.2 80.0-100.0 fL Normal 11-[address] [facility] (66883) Comment: Performed By: #### CITPLT S LATESHA ####[address] [place] [address] [phone] Monocytes/100 WBC (Bld) 1.0 % Normal [address] [facility] (66045) Comment: Performed By: #### CITPLT, S LATESHA ####[place] [address] [address] [address] [phone] Myelo% 9.0 % Normal 11-06-[address] [facility] (69056) Comment: Performed By: #### CITPLT, S LATESHA ####[place] [address] [address] [address] [phone] Neutrophils/100 WBC (Bld) 77.0 % Normal 10-[address] [facility] (45169) Comment: Result Comment: See Patholog ist Interpretation Performed By: #### CITPLT, S LATESHA ####[address] [place] [address] [phone] NRBCs 9 0 /100 WBC High 11-06-[address] [facility] (86371) Comment: Performed By: #### CITPLT, S LATESHA ####[address] [place] [address] [phone] Ovalocytes Few Normal 11-06-2019 [facility] (38065) Comment: Performed By: #### CITPLT, S LATESHA ####[address] [place] [address] [phone] Pathologist Interp SEE COMMENT Normal [address] [facility] (18808) Comment: Result Comment: Normocytic A nemia With Moderate Polychromasia Thrombocytopenia Performed By: #### CITPLT, S LATESHA ####[address] [place] [address] [phone] Pathologist: Reviewed by Maria L De La Fuente 11-05 [facility] MD Freddie PhD (72908) [facility] (13886) Comment: Performed By: #### CITPLT, S LATESHA ####[facility] [address] [place] [address] [phone] Plasma cell% 1.0 % Normal 11-06-2019 [facility] (64080) Comment: Performed By: #### CITPLT, S LATESHA ####[facility] [address] [place] [address] [phone] Platelet mean <<DO NOT REPORT>> 9.0-12.7 Normal 11-06-19 20 [facility] volume (Bld) [facility] nd (48622) [Entitic vol] Comment: Performed By: #### CITPLT, S LATESHA ####[place] [address] [place] [address] Platelets (Bld) [#/Vol] 43 150-400 k/uL Low [address] [facility] (48956) Comment: Result Comment: Result check ed and verified No clot detected. Platelet count confirmed by manual review of peripheral blood smear. Performed By: #### CITPLT, S LATESHA ####[place] [address] [place] [address] Platelets (Bld) Platelet estimate Normal 2019 [facility] [#/Vol] decreased [facility] (64412) Comment: Performed By: #### CITPLT, S LATESHA ####[facility] [place] [address] Polychromasia Moderate Normal 11-06-2019 [facility] (56893) Comment: Performed By: #### CITPLT, S LATESHA ####[facility] [place] [address] Promyl% 1.0 % Normal 11-06-[address] [facility] (60117) Comment: Performed By: #### CITPLT, S LATESHA ####[place] [address] [place] [address] [phone] RBC (Bld) [#/Vol] 3.26 4.20-6.00 m/uL Low 11-06-2019 [facility] (07074) Comment: Performed By: #### JABARI S LATESHA ####[place] [address] [place] [address] [phone] RBC Fragments Few Normal 11-06-2019 [facility] (60941) Comment: Performed By: #### CITPLLittle S LATESHA ####[address] [place] [address] [phone] Spherocytes Few Normal 11-06-2019 [facility] (41357) Comment: Performed By: #### JABARI S LATESHA ####[place] [address] [place] [address] [phone] TSH Qn Present Normal 11-06-[address] [facility] (92219) Comment: Performed By: #### CITHALEY S LATESHA ####[place] [address] [place] [address] [phone] WBC (Bld) [#/Vol] 10.75 3.70-11.00 k/uL Normal 11-06-[address] [facility] (19218) Comment: Performed By: #### CITHALEY S LATESHA ####[place] [address] [phone] nursing prog on NURSING HNO ID: [id number] Normal 11-06-2019 [facility] Author: Loreta (Rn) [facility] Service: ? [facility] Author Type: Registered Nurse ([id number]) Type: Nursing Progress Note Filed: 11/06/2019 5:22 AM Note Text: Nursing Progress Note Patient Name: Tiana Martínez [id number] Daily Note: 11/05/19 2210: pt BP 182/93 automatic an 174/88 manual. Pt denies sym ptoms. house calls nurse practitioner notified. Captopril ordered and administered per 11/06/19 0301: pt reports feeling more short of breath and cough has increased in frequency. He is still coughing up moderate amount. Upon ass essment, pt expiratory wheezing has worsened. Pt desatting to 88% on 2L, oxygen increased to 3L. RT paged for PRN albuterol breathing treatm ent. house calls nurse practitioner notified and at bedside. No new orders at this time 0508: Pt BP 173/79, pt denies symptoms. house calls nurse practitioner notified. No new orders at this time This note was completed by: Loreta Smith RN magnesium on 2019-11-05 Magnesium [Mass/Vol] 2.9 1.7-2.3 mg/dL High [address] [facility] (49335) Comment: Performed By: #### PT, CMP, MG1, PHOS, URIC, CBCDIF ####[facility] [address] [place], [place] [phone] imm plt frac on Imm Plt Frac 7.60 0.9-7.2 % High 11-06-2019 [facility] (53649) Comment: Performed By: #### IPFR, B12 , SERFOL ####[facility] [address], [place] [phone] folate, serum on 31-10-24 Folate [Mass/Vol] >20.0 >4.7 ng/mL Normal 11-06-2019 [facility] (74842) Comment: Result Comment: A result of > 20 ng/mL is not necessarily indicative of a pathologic o r treatable condition: it reflects a soriano itation of the test methodology. Assay reference range: 4.8 t o 24.2 ng/mL. Suitable for detection of fo late deficiency. Reference: Folate III (Folate III) [pac kage insert V 2.0 German]. [facility], [place], [place]: March 2015. 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 Jostin Vinson MD Hematology Fellow, Hematology-Oncology [facility] 11/06/2019 3:27 PM [facility] STAFF PHYSICIAN NOTE OF PERSONAL INVOLVEMENT IN [...] Thank you. SIGNATURE: Nancy Kruse DO PAGER: [phone] DATE of SERVICE: November 06, 2019 TIME of SERVICE: 8:53 PM comp metabolic panel on 2019-11-06 Albumin [Mass/Vol] 3.0 3.9-4.9 g/dL Low 11-06-[address] [facility] (01747) Comment: Performed By: #### CMP, URIC ####[facility] [place], [place] [phone] ALP [Catalytic activity/Vol] 155 38-113 U/L High 0 11-06-[address] [facility] (58768) Comment: Performed By: #### CMP, URIC ####[place] [address] [address] [place], [place] [phone] ALT [Catalytic activity/Vol] 70 10-54 U/L High 0 11-06-[address] [facility] (92544) Comment: Performed By: #### CMP, URIC ####[place] [address] [address] [place], [place] [phone] Anion gap [Moles/Vol] 7 9-18 mmol/L Low 11-06-[address] [facility] (93860) Comment: Performed By: #### CMP, URIC ####[address] [phone] AST [Catalytic activity/Vol] 232 14-40 U/L High 0 11-06-[address] [facility] (82452) Comment: Performed By: #### CMP, URIC ####[address] [phone] Bilirubin [Mass/Vol] 0.6 0.2-1.3 mg/dL Normal [address] [facility] (81382) Comment: Performed By: #### CMP, URIC ####[address] [phone] Calcium [Mass/Vol] 9.5 8.5-10.2 mg/dL Normal 11-06-[address] [facility] (10549) Comment: Performed By: #### CMP, URIC ####[place] [address] [address], [place] [phone] Chloride [Moles/Vol] 102 97-105 mmol/L Normal [address] [facility] (12735) Comment: Performed By: #### CMP, URIC ####[place] [address] [address] [place], [place] [phone] CO2 [Moles/Vol] 31 22-30 mmol/L High 11-06-2019 [facility] (37786) Comment: Performed By: #### CMP, URIC ####[facility] [address], [place] [phone] Creatinine [Mass/Vol] 1.21 0.73-1.22 mg/dL Normal 11-06-[address] [facility] (07368) Comment: Performed By: #### CMP, URIC ####[facility] [address], [place] [phone] eGFR- Amer. >60 Normal 11-06-[address] [facility] (78176) Comment: Performed By: #### CMP, URIC ####[facility] [place], [place] [phone] GFR/1.73 sq M predicted among 58 . Normal 11-06-[address] [facility] non-blacks MDRD (S/P/Bld) [Vol (44630) rate/Area] Comment: Result Comment: eGFR (Estima alejandrina [...] actual GFR. Performed By: #### CMP, URIC ####[facility] [address] [place], [place] [phone] Glucose [Mass/Vol] 169 74-99 mg/dL High 11-06-[address] [facility] (69661) Comment: Result Comment: The [place] Diabetes Association (ADA) provides guidance for cutoff [...] for diagnosis of diabetes. Reference: Standards of [facility] Care in Diabetes 2016, [place] [employer] Association. Diabetes Care. 2016.39(Suppl 1). Performed By: #### CMP, URIC ####[place] [address] [address], [place] [phone] Potassium [Moles/Vol] 3.6 3.7-5.1 mmol/L Low 11-06-[address] [facility] (32876) Comment: Performed By: #### CMP, URIC ####[address] [phone] Protein [Mass/Vol] 5.3 6.3-8.0 g/dL Low 11-06-[address] [facility] (35388) Comment: Performed By: #### CMP, URIC ####[place] [address] [address], [place] [phone] Sodium [Moles/Vol] 140 136-144 mmol/L Normal 11-06-[address] [facility] (85848) Comment: Performed By: #### CMP, URIC ####[address] [place], [place] [phone] Urea nitrogen [Mass/Vol] 33 9-24 mg/dL High 11-[address] [facility] (85450) Comment: Performed By: #### CMP, URIC ####[place] [address] [address], [place] [phone] Albumin [Mass/Vol] 2.9 3.9-4.9 g/dL Low 11-06-[address] [facility] (62236) Comment: Performed By: #### PT, CMP, MG1, PHOS, URIC, CBCDIF ####[facility] [place], [place] [phone] ALP [Catalytic activity/Vol] 146 38-113 U/L High 0 11-06-[address] [facility] (98284) Comment: Performed By: #### PT, CMP, MG1, PHOS, URIC, CBCDIF ####[facility] [place], [place] [phone] ALT [Catalytic activity/Vol] 69 10-54 U/L High 0 11-06-[address] [facility] (54496) Comment: Performed By: #### PT, CMP, MG1, PHOS, URIC, CBCDIF ####[place] [address] [place], [place] [phone] Anion gap [Moles/Vol] 11 9-18 mmol/L Normal 11-06-[address] [facility] (94870) Comment: Performed By: #### PT, CMP, MG1, PHOS, URIC, CBCDIF ####[place] [address] [place], [place] [phone] AST [Catalytic activity/Vol] 216 14-40 U/L High 0 11-06-[address] [facility] (35444) Comment: Performed By: #### PT, CMP, MG1, PHOS, URIC, CBCDIF ####[place] [address] [place], [place] [phone] Bilirubin [Mass/Vol] 0.6 0.2-1.3 mg/dL Normal [address] [facility] (00154) Comment: Performed By: #### PT, CMP, MG1, PHOS, URIC, CBCDIF ####[facility] [place], [place] [phone] Calcium [Mass/Vol] 9.5 8.5-10.2 mg/dL Normal 11-06-[address] [facility] (04823) Comment: Performed By: #### PT, CMP, MG1, PHOS, URIC, CBCDIF ####[facility] [address] [place], [place] [phone] Chloride [Moles/Vol] 102 97-105 mmol/L Normal [address] [facility] (34719) Comment: Performed By: #### PT, CMP, MG1, PHOS, URIC, CBCDIF ####[facility] [address] [place], [place] [phone] CO2 [Moles/Vol] 28 22-30 mmol/L Normal 11-06-2019 [facility] (54493) Comment: Performed By: #### PT, CMP, MG1, PHOS, URIC, CBCDIF ####[place] [address] [place], [place] [phone] Creatinine [Mass/Vol] 1.24 0.73-1.22 mg/dL High 11-06-[address] [facility] (61612) Comment: Performed By: #### PT, CMP, MG1, PHOS, URIC, CBCDIF ####[place] [address] [place], [place] [phone] eGFR- Amer. >60 Normal 11-06-[address] [facility] (20959) Comment: Performed By: #### PT, CMP, MG1, PHOS, URIC, CBCDIF ####[place] [address] [place], [place] [phone] GFR/1.73 sq M predicted among 56 . Normal 11-06-[address] [facility] non-blacks MDRD (S/P/Bld) [Vol (27437) rate/Area] Comment: Result Comment: eGFR (Estima alejandrina [...] #### PT, CMP, MG1, PHOS, URIC, CBCDIF ####[facility] [address] [place], [place] [phone] Glucose [Mass/Vol] 150 74-99 mg/dL High 11-06-[address] [facility] (50393) Comment: Result Comment: The [place] Diabetes Association (ADA) provides guidance for cutoff [...] for diagnosis of diabetes. Reference: Standards of [facility] Care in Diabetes 2016, [place] [employer]. Diabetes Care. 2016.39(Suppl 1). Performed By: #### PT, CMP, MG1, PHOS, URIC, CBCDIF ####[facility] [place], [place] [phone] Potassium [Moles/Vol] 3.7 3.7-5.1 mmol/L Normal 11-06-[address] [facility] (19712) Comment: Performed By: #### PT, CMP, MG1, PHOS, URIC, CBCDIF ####[facility] [place], [place] [phone] Protein [Mass/Vol] 5.4 6.3-8.0 g/dL Low 11-06-[address] [facility] (90401) Comment: Performed By: #### PT, CMP, MG1, PHOS, URIC, CBCDIF ####[facility] [address] [place] [phone] Sodium [Moles/Vol] 141 136-144 mmol/L Normal 11-06-[address] [facility] (78992) Comment: Performed By: #### PT, CMP, MG1, PHOS, URIC, CBCDIF ####[facility] [place] [phone] Urea nitrogen [Mass/Vol] 34 9-24 mg/dL High 11-[address] [facility] (67877) Comment: Performed By: #### PT, CMP, MG1, PHOS, URIC, CBCDIF ####[place] [address] [place] [phone] citrated plt count on 2019-11-06 Citrated Plt Count 39 150-400 K/uL Low 11-06-[address] [facility] (88428) Comment: Result Comment: Result check ed and verified No clot detected. Platelet count confirmed by manual review of peripheral blood smear. Sodium Citrate Sample. Performed By: #### CITPLT, S LATESHA ####[place] [address] [address] [phone] cbc and differential on 2019-11-06 Abs Baso 0.00 <0.11 k/uL Normal 11-06-[address] [facility] (40926) Comment: Performed By: #### PT, CMP, MG1, PHOS, URIC, CBCDIF ####[facility] [place] [phone] Abs Polk 0.21 <0.87 k/uL Normal 11-06-[address] [facility] (85698) Comment: Performed By: #### PT, CMP, MG1, PHOS, URIC, CBCDIF ####[facility] [place]Carol [place] [phone] Abs Neut 8.97 1.45-7.50 k/uL High 11-06-[address] [facility] (09444) Comment: Performed By: #### PT, CMP, MG1, PHOS, URIC, CBCDIF ####[facility] [place], [place] [phone] Anisocytosis Ql (Bld) Present Normal 11-06-[address] [facility] (11694) Comment: Performed By: #### PT, CMP, MG1, PHOS, URIC, CBCDIF ####[facility] [place], [place] [phone] Basophils/100 WBC (Bld) 0.0 % Normal [address] [facility] (32877) Comment: Performed By: #### PT, CMP, MG1, PHOS, URIC, CBCDIF ####[place] [address] [place], [place] [phone] DTYPE Manual Diff Normal 11-06-2019 [facility] (74063) Comment: Performed By: #### PT, CMP, MG1, PHOS, URIC, CBCDIF ####[place] [address] [place] [phone] Eosinophils (Bld) [#/Vol] 0.00 <0.46 k/uL Normal 10-[address] [facility] (09513) Comment: Performed By: #### PT, CMP, MG1, PHOS, URIC, CBCDIF ####[facility] [place]andT[place] [phone] Eosinophils/100 WBC (Bld) 0.0 % Normal 10-[address] [facility] (41499) Comment: Performed By: #### PT, CMP, MG1, PHOS, URIC, CBCDIF ####[facility] [place], [place] [phone] Erythrocyte distribution 29.5 11.5-15.0 % High 11-05 [facility] width (RBC) [Ratio] [place] (65231) Comment: Performed By: #### PT, CMP, MG1, PHOS, URIC, CBCDIF ####[facility] [place], [place] [phone] Hematocrit (Bld) [Volume 23.6 39.0-51.0 % Low 11-[address] [facility] fraction] (22826) Comment: Performed By: #### PT, CMP, MG1, PHOS, URIC, CBCDIF ####[place] [address] [place], [place] [phone] Hemoglobin (Bld) 6.9 13.0-17.0 g/dL Low 11-06-2019 [facility] [Mass/Vol] [place] (17640) Comment: Performed By: #### PT, CMP, MG1, PHOS, URIC, CBCDIF ####[place] [address] [place], [place] [phone] Lymphocytes (Bld) [#/Vol] 1.32 1.00-4.00 k/uL Normal 10-[address] [facility] (55332) Comment: Performed By: #### PT, CMP, MG1, PHOS, URIC, CBCDIF ####[place] [address] [place], [place] [phone] Lymphocytes/100 WBC (Bld) 11.5 % Normal 10-[address] [facility] (12365) Comment: Performed By: #### PT, CMP, MG1, PHOS, URIC, CBCDIF ####[place] [address] [place], [place] [phone] MCH (RBC) [Entitic mass] 24.5 26.0-34.0 pG Low 11-[address] [facility] (97001) Comment: Performed By: #### PT, CMP, MG1, PHOS, URIC, CBCDIF ####[place] [address] [place], [place] [phone] MCHC (RBC) [Mass/Vol] 29.2 30.5-36.0 g/dL Low 11-06-[address] [facility] (27783) Comment: Performed By: #### PT, CMP, MG1, PHOS, URIC, CBCDIF ####[facility] [address] [place]and, [place] [phone] MCV (RBC) [Entitic vol] 83.7 80.0-100.0 fL Normal 11-[address] [facility] (19758) Comment: Performed By: #### PT, CMP, MG1, PHOS, URIC, CBCDIF ####[facility] [place], [place] [phone] [place]% 3.5 % Normal 11-06-[address] [facility] (90766) Comment: Performed By: #### PT, CMP, MG1, PHOS, URIC, CBCDIF ####[facility] [place], [place] [phone] Monocytes/100 WBC (Bld) 1.8 % Normal [address] [facility] (76296) Comment: Performed By: #### PT, CMP, MG1, PHOS, URIC, CBCDIF ####[facility] [place], [place] [phone] Myelo% 5.3 % Normal 11-06-[address] [facility] (23830) Comment: Performed By: #### PT, CMP, MG1, PHOS, URIC, CBCDIF ####[facility] [place], [place] [phone] Neutrophils/100 WBC (Bld) 77.9 % Normal 10-[address] [facility] (77228) Comment: Performed By: #### PT, CMP, MG1, PHOS, URIC, CBCDIF ####[facility] [address] [place], [place] [phone] NRBCs 12 0 /100 WBC High 11-06-[address] [facility] (31098) Comment: Performed By: #### PT, CMP, MG1, PHOS, URIC, CBCDIF ####[facility] [address] [place], [place] [phone] Ovalocytes Few Normal 11-06-2019 [facility] (70270) Comment: Performed By: #### PT, CMP, MG1, PHOS, URIC, CBCDIF ####[facility] [place], [place] [phone] Platelet mean <<DO NOT REPORT>> 9.0-12.7 Normal 11-06-19 20 [facility] volume (Bld) C[place] nd (63805) [Entitic vol] Comment: Performed By: #### PT, CMP, MG1, PHOS, URIC, CBCDIF ####[facility] [place], [place] [phone] Platelets (Bld) Platelet estimate Normal 2019 [facility] [#/Vol] [facility] [place] (78089) Comment: Performed By: #### PT, CMP, MG1, PHOS, URIC, CBCDIF ####[facility] [place], [place] [phone] Platelets (Bld) [#/Vol] 52 150-400 k/uL Low [address] [facility] (55859) Comment: Result Comment: Result check ed and verified No clot detected. Performed By: #### PT, CMP, MG1, PHOS, URIC, CBCDIF ####[facility] [address] [place], [place] [phone] Polychromasia Slight Normal 11-06-2019 [facility] (46294) Comment: Performed By: #### PT, CMP, MG1, PHOS, URIC, CBCDIF ####[facility] [address] [place], [place] [phone] RBC (Bld) [#/Vol] 2.82 4.20-6.00 m/uL Low 11-06-2019 [facility] (08969) Comment: Performed By: #### PT, CMP, MG1, PHOS, URIC, CBCDIF ####[facility] [place] [phone] RBC Fragments Few Normal 11-06-2019 [facility] (30064) Comment: Performed By: #### PT, CMP, MG1, PHOS, URIC, CBCDIF ####[place] [address] [place] [phone] Spherocytes Few Normal 11-06-2019 [facility] (72906) Comment: Performed By: #### PT, CMP, MG1, PHOS, URIC, CBCDIF ####[place] [address] [place] [phone] Target Cells Few Normal 11-06-2019 [facility] (10232) Comment: Performed By: #### PT, CMP, MG1, PHOS, URIC, CBCDIF ####[place] [address] [place] [phone] TSH Qn Present Normal 11-06-[address] [facility] (53497) Comment: Performed By: #### PT, CMP, MG1, PHOS, URIC, CBCDIF ####[facility] [place] [phone] WBC (Bld) [#/Vol] 11.51 3.70-11.00 k/uL High 11-06-[address] [facility] (69226) Comment: Performed By: #### PT, CMP, MG1, PHOS, URIC, CBCDIF ####[facility] [place] [phone] Abs Baso 0.00 <0.11 k/uL Normal 11-06-[address] [facility] (24282) Comment: Performed By: #### CBCDIF ## ##[facility]ClevelCarol [place] [phone] Abs Polk 0.20 <0.87 k/uL Normal 11-06-[address] [facility] (20171) Comment: Performed By: #### CBCDIF ## ##[place] [address], [place] [phone] Abs Neut 8.30 1.45-7.50 k/uL High 11-06-[address] [facility] (21325) Comment: Performed By: #### CBCDIF ## ##[place] [address], [place] [phone] Anisocytosis Ql (Bld) Present Normal 11-06-[address] [facility] (39717) Comment: Performed By: #### CBCDIF ## ##[place] [address], [place] [phone] Basophils/100 WBC (Bld) 0.0 % Normal [address] [facility] (03476) Comment: Performed By: #### CBCDIF ## ##[place] [address], [place] [phone] DTYPE Manual Diff Normal 11-06-2019 [facility] (91740) Comment: Performed By: #### CBCDIF ## ##[place] [address]W[place], [place] [phone] Eosinophils (Bld) [#/Vol] 0.00 <0.46 k/uL Normal 10-[address] [facility] (32325) Comment: Performed By: #### CBCDIF ## ##[place] [address], [place] [phone] Eosinophils/100 WBC (Bld) 0.0 % Normal 10-[address] [facility] (52823) Comment: Performed By: #### CBCDIF ## ##[place] [address] [place], [place] [phone] Erythrocyte distribution 30.2 11.5-15.0 % High 11-05 [facility] width (RBC) [Ratio] [place] (15698) Comment: Performed By: #### CBCDIF ## ##[place] [address], [place] [phone] Hematocrit (Bld) [Volume 25.5 39.0-51.0 % Low 11-[address] [facility] fraction] (68693) Comment: Performed By: #### CBCDIF ## ##[place] [address], [place] [phone] Hemoglobin (Bld) 7.4 13.0-17.0 g/dL Low 11-06-2019 [facility] [Mass/Vol] [place] (37190) Comment: Performed By: #### CBCDIF ## ##[address] [phone] Lymphocytes (Bld) [#/Vol] 1.18 1.00-4.00 k/uL Normal 10-[address] [facility] (79280) Comment: Performed By: #### CBCDIF ## ##[place] [address], [place] [phone] Lymphocytes/100 WBC (Bld) 10.5 % Normal 10-[address] [facility] (93404) Comment: Performed By: #### CBCDIF ## ##[address], [place] [phone] MCH (RBC) [Entitic mass] 24.2 26.0-34.0 pG Low 11-[address] [facility] (12243) Comment: Performed By: #### CBCDIF ## ##[place] [address], [place] [phone] MCHC (RBC) [Mass/Vol] 29.0 30.5-36.0 g/dL Low 11-05- [address] [facility] (79279) Comment: Performed By: #### CBCDIF ## ##[place] [address] [place], [place] [phone] MCV (RBC) [Entitic vol] 83.3 80.0-100.0 fL Normal 11-[address] [facility] (12545) Comment: Performed By: #### CBCDIF ## ##[place] [address]Cselect [facility] hospitalandSeverance, [place] [phone] [place]% 6.1 % Normal 11-06-[address] [facility] (39262) Comment: Performed By: #### CBCDIF ## ##[place] [address], [place] [phone] Monocytes/100 WBC (Bld) 1.8 % Normal [address] [facility] (44682) Comment: Performed By: #### CBCDIF ## ##[place] [address], [place] [phone] Myelo% 7.9 % Normal 11-06-[address] [facility] (89381) Comment: Performed By: #### CBCDIF ## ##[place] [address] [place], [place] [phone] Neutrophils/100 WBC (Bld) 73.7 % Normal 10-[address] [facility] (24724) Comment: Performed By: #### CBCDIF ## ##[place] [address]ClevelandSever[place], [place] [phone] NRBCs 7 0 /100 WBC High 11-06-[address] [facility] (61029) Comment: Performed By: #### CBCDIF ## ##[place] [address]Cselect [facility] hospitalandS[place], [place] [phone] Ovalocytes Few Normal 11-06-2019 [facility] (28410) Comment: Performed By: #### CBCDIF ## ##[place] [address], [place] [phone] Platelet mean <<DO NOT REPORT>> 9.0-12.7 Normal 11-06-19 [facility] volume (Bld) [facility] (97944) [Entitic vol] Comment: Performed By: #### CBCDIF ## ##[facility], [place] [phone] Platelets (Bld) Platelet estimate Normal 2019 [facility] [#/Vol] decreased [place] (54534) Comment: Performed By: #### CBCDIF ## ##[place] [address], [place] [phone] Platelets (Bld) [#/Vol] 58 150-400 k/uL Low [address] [facility] (38655) Comment: Result Comment: Result check ed and verified No clot detected. Performed By: #### CBCDIF ## ##[place] [address] [place], [place] [phone] Polychromasia Slight Normal 11-06-2019 [facility] (81537) Comment: Performed By: #### CBCDIF ## ##[place] [address] [place], [place] [phone] RBC (Bld) [#/Vol] 3.06 4.20-6.00 m/uL Low 11-06-2019 [facility] (36857) Comment: Performed By: #### CBCDIF ## ##[facility], [place] [phone] RBC Fragments Few Normal 11-06-2019 [facility] (79654) Comment: Performed By: #### CBCDIF ## ##[facility], [place] [phone] Spherocytes Few Normal 11-06-2019 [facility] (03038) Comment: Performed By: #### CBCDIF ## ##[facility], [place] [phone] TSH Qn Present Normal 11-06-[address] [facility] (51982) Comment: Performed By: #### CBCDIF ## ##[facility] [place], [place] [phone] WBC (Bld) [#/Vol] 11.26 3.70-11.00 k/uL High 11-06-[address] [facility] (95676) Comment: Performed By: #### CBCDIF ## ##[facility] [place], [place] [phone]- [phone] allied health on 31-10-24 ALLIED HEALTH HNO ID: [id number] Normal [facility] Author: Ligia Garg (Rn) JUNIE Wylie [place] (97268) Service: PICC Team Author Type: Registered Nurse Type: Allied Health Filed: 11/06/2019 11:58 AM Note Text: PATIENT EDUCATION TOPIC: PROCEDURE / SURGERY: Procedure/Surg savanna: midline PATIENT NAME: Tiana Martínez PATIENT LOCATION: [place] [address] READINESS TO LEARN COGNITIVE ABILITY: Alert and [...] Urate [Mass/Vol] 5.5 4.0-8.1 mg/dL Normal 11-05-2019 [facility] (03479) Comment: Performed By: #### CBC, CMP, URIC ####[place] [id number] [place], [place] [phone] type and screen on 2019-11-05 ABO/RH(D) O POSITIVE Normal 11-05-2019 [facility] (63576) Comment: Performed By: #### TSCR #### [facility] [address], [place] [phone] therapy nt on 11-04 THERAPY NT HNO ID: [id number] Normal 11-05-2019 [facility] Author: Huy Brown PT [place] ([id number]) Service: Physical Therapy Author Type: Physical Therapist Type: Therapy (PT/OT/Speech/Resp) Filed: 11/05/2019 3:38 PM Note Text: PHYSICAL THERAPY MISSED VISIT SERVICE DATE: 11/05/2019 SERVICE TIME: 1536 to 1536 ROOM: [place] [address] Attempted Treatment. Patient not seen due to Declined(Having an important discussion over the phone.). Patient was having a discussion over care plan that this therapist did not want to disrupt. Physical t herapy will follow-up tomorrow 11/06/2019. SIGNATURE: Huy Brown PT PATIENT NAME: Tiana Martínez DATE: November 05, 2019 TIME: 3:37 PM THERAPY NT HNO ID: [id number] Normal 11-05-2019 [facility] Author: Huy Brown PT [place] ([id number]) Service: Physical Therapy Author Type: Physical Therapist Type: Therapy (PT/OT/Speech/Resp) Filed: 11/05/2019 11:01 AM Note Text: PHYSICAL THERAPY MISSED VISIT SERVICE DATE: 11/05/2019 SERVICE TIME: 1101 to 1101 ROOM: [place] [address] Attempted Evaluation. Patient not seen due to Another servic e at bedside(Patient in a meeting.). SIGNATURE: Huy Brown PT PATIENT NAME: Tiana Martínez DATE: November 05, 2019 TIME: 11:01 AM social work on 2019 SOCIAL WORK HNO ID: [id number] Normal 0 [facility] Author: Jay JasmineMicrowave Oven Assembler) Mallory [place] ([id number]) Service: Oncology Author Type: Fur Cutter Type: Social Work Filed: 11/05/2019 2:49 PM Note Text: CIRCUITS ENGINEER FOLLOW UP NOTE: SOLID TUMOR ONCOLOGY Date of service: November 05, 2019 Tiana Martínez is being seen for a follow up composite worker visit. Today's visit includes: patient and [...] quality of life. Son requested coordination for [facility] upon DC. Educated about t he process and CM/RN coordinating care for disposition planning. Son to call CM/RNSaud. PLAN: Communicate pertinent medical/psychosocial information to [facility] team, Continue follow up as needed and Provide emotio nal support to patient/family F/U AP[facility]MENT[facility] Specialist Pager: [phone] protime on PT Coag (PPP) [Time] 1.0 0.9-1.3 s Normal [address] [facility] (33579) Comment: Result Comment: Vitamin K An tagonist (VKA) Therapeutic Range: INR 2 to 3 (Target INR of 2.5) Note: For patients treated w ith VKA drugs, such as warfarin, the [place] [employer] 2012 Guideline recommends a therapeutic INR range of 2 to 3 (target INR of 2.5). This recommendation includes high-risk patients with antiphospholipid syndrome with previous arterial or venous thromboembolism, current-generation mechanical or bioprosthetic aortic heart valve replacement. Note: Patients with music box mechanic al aortic valve replacement and additional risk factors for thromboembolic events (atrial fibrillation, previous thromboembolism, LV dysfunction, hypercoagulable conditions) or an older generation mecha nical AVR (i.e., ball in-Cage) or any mechanical MVR should have a INR therapeutic range of 2.5 to 3.5 (target INR of 3). Vitaliy GH, et al. Chest 2012 , 141:7S-47S Janet RA et al. [facility] 20 17, 70: 252-289 Performed By: #### PT, CBC, MG1, PHOS ####[facility] [place] [address] [phone] PT Coag (PPP) [Time] 10.4 9.7-13.0 sec Normal 11-04- [address] [facility] (91802) Comment: Performed By: #### PT, CBC, MG1, PHOS ####[facility] [address] [place], [place] [phone] progress on 2019-10 PROGRESS HNO ID: [id number] Normal 11-05-2019 [facility] Author: Matthew Puri [place] ([id number]) Service: Oncology Author Type: Physician Type: Progress [...] pending 10/31/19 1215 vte pharmacologic prophylaxis contraindicated (mt,wv) 10/31/19 1215 pneumatic compression stockings (mt,wv) 10/31/19 1215 activity - mobilize patient (mt,wv) SIGNATURE: Skylar Seay MD PHD PGY-1 PATIENT NAME: Tiana medina DATE: 11/05/2019 TIME: 7:58 AM PAGER: [phone] Note: These recommendations are not final until staffed by max harris HEMATOLOGY/MEDICAL ONCOLOGY/[facility] BRAIN TUMOR CENTER STA FF: [...] to thrombocyt[place]. [place] [id number] phosphorus on 11-04 Phosphate [Mass/Vol] 4.1 2.7-4.8 mg/dL Normal [address] [facility] (51734) Comment: Performed By: #### PT, CBC, MG1, PHOS ####[facility] [address] [place] [address] [phone] nursing prog on NURSING PROG HNO ID: [id number] Normal 11-05-19 [facility] Author: Cesilia Hernandez) JUNIE Ching [place] (51578) Service: Nursing Author Type: Registered Nurse Type: [...] TIME: 8:02 PM NURSING PROG HNO ID: [id number] Normal 11-05-[address] [place] [address] Author: Katina JasmineRn) JUNIE Holland [place] ([id number]) Service: ? Author Type: Registered Nurse Type: Nursing Progress Note Filed: 11/05/2019 5:26 AM Note Text: Nursing Progress Note Patient Name: Tiana Martínez Patient [place] [facility] [place] [id number] Daily Note: [phone] Tylenol given for pain 4/10 to R hip. Heart/lung s ounds WNL. Irregular HR on ascultation. Pt on telemetry, monitor review ed, patient in Afib HR 80-100. ([id number]) updated. 0500 MASD noted to scrotum, [facility] cream delivered [facility], pt self applied. Pt noted wheezing/SOB, sating well on 2L NC. R T at bedside for PRN tx and scheduled mucomyst. AM labs drawn by medical lab director . This note was completed by: Katina Holland RN NURSING PROG HNO ID: [id number] Normal 11-05-19 [facility] Author: Ifrah (Rn) JUNIE Caicedo ([id number]) Service: Nursing Author Type: Registered Nurse Type: [...] * * *Final Report* * * Normal [facility] IVCON DATE OF EXAM: Nov 05 2019 8:33PM [place] ([id number]) QBM 0295 - MRI BRAIN WO/W IVCON [...] spine without extraosseous extensi on of neoplasm. Mask Design Engineer: PSCB Transcribe Date/Time: Nov 05 2019 8:57P Dictated by : SIMI KERNS MD This examination was interpreted and the report reviewed and electronically signed by: ZEE EVANS MD on Nov 05 2019 9:20PM EST [id number] magnesium on 11-04 Magnesium [Mass/Vol] 2.9 1.7-2.3 mg/dL High [facility] (00672) Comment: Performed By: #### PT, CBC, MG1, PHOS ####[place] [address] [phone] comp metabolic panel on 2019-11-05 Albumin [Mass/Vol] 3.1 3.9-4.9 g/dL Low 11-05-[address] [facility] (09888) Comment: Performed By: #### CBC, CMP, URIC ####[facility] [address] [place] [address] [phone] ALP [Catalytic activity/Vol] 140 38-113 U/L High 0 11-05-[address] [facility] (50664) Comment: Performed By: #### CBC, CMP, URIC ####[place] [address] [phone] ALT [Catalytic activity/Vol] 61 10-54 U/L High 0 11-05-[address] [facility] (60571) Comment: Performed By: #### CBC, CMP, URIC ####[place] [id number] [place] [address] [phone] Anion gap [Moles/Vol] 14 9-18 mmol/L Normal 11-05-[address] [facility] (20640) Comment: Performed By: #### CBC, CMP, URIC ####[place] [address] [phone] AST [Catalytic activity/Vol] 207 14-40 U/L High 0 11-05-[address] [facility] (35463) Comment: Performed By: #### CBC, CMP, URIC ####[place] [address] [place] [address] [phone] Bilirubin [Mass/Vol] 0.5 0.2-1.3 mg/dL Normal [address] [facility] (25179) Comment: Performed By: #### CBC, CMP, URIC ####[place] [address] [place] [address] [phone] Calcium [Mass/Vol] 9.7 8.5-10.2 mg/dL Normal 11-05-[address] [facility] (28844) Comment: Performed By: #### CBC, CMP, URIC ####[place] [address] [phone] Chloride [Moles/Vol] 101 97-105 mmol/L Normal [address] [facility] (28742) Comment: Performed By: #### CBC, CMP, URIC ####[place] [address] [place] [address] [phone] CO2 [Moles/Vol] 28 22-30 mmol/L Normal 11-05-2019 [facility] (05969) Comment: Performed By: #### CBC, CMP, URIC ####[place] [address] [place] [address] [phone] Creatinine [Mass/Vol] 1.33 0.73-1.22 mg/dL High 11-05-[address] [facility] (39370) Comment: Performed By: #### CBC, CMP, URIC ####[place] [address] [address] [place] [address] [phone] eGFR- Amer. >60 Normal 11-05-[address] [facility] (07986) Comment: Performed By: #### CBC, CMP, URIC ####[place] [address] [address] [place] [address] [phone] GFR/1.73 sq M predicted among 52 . Normal 11-05-[address] [facility] non-blacks MDRD (S/P/Bld) [Vol (04910) rate/Area] Comment: Result Comment: eGFR (Estima alejandrina [...] GFR. Performed By: #### CBC, CMP, URIC ####[facility] [address] [place] [address] [phone] Glucose [Mass/Vol] 181 74-99 mg/dL High 11-05-[address] [facility] (90822) Comment: Result Comment: The [place] Diabetes Association (ADA) provides guidance for cutoff [...] for diagnosis of diabetes. Reference: Standards of [facility] Care in Diabetes 2016, [place] Diabetes Association. Diabetes Care. 2016.39(Suppl 1). Performed By: #### CBC, CMP, URIC ####[facility] [address] [place] [address] [phone] Potassium [Moles/Vol] 3.5 3.7-5.1 mmol/L Low 11-05-[address] [facility] (11606) Comment: Performed By: #### CBC, CMP, URIC ####[place] [address] [place] [address] [place] [address] Protein [Mass/Vol] 5.4 6.3-8.0 g/dL Low 11-05-[address] [facility] (87542) Comment: Performed By: #### CBC, CMP, URIC ####[address] [place] [address] Sodium [Moles/Vol] 143 136-144 mmol/L Normal 11-05-[address] [facility] (53949) Comment: Performed By: #### CBC, CMP, URIC ####[address] [place] [address] Urea nitrogen [Mass/Vol] 37 9-24 mg/dL High 11-[address] [facility] (49705) Comment: Performed By: #### CBC, CMP, URIC ####[place] [address] cbc on 2019-11-05 Absolute nRBC 1.06 <0.01 k/uL High 11-05-2019 [facility] (09767) Comment: Performed By: #### CBC, CMP, URIC ####[place] [address] Erythrocyte distribution 29.8 11.5-15.0 % High 11-04 [facility] width (RBC) [Ratio] [facility] (54076) Comment: Performed By: #### CBC, CMP, URIC ####[address] [address] Hematocrit (Bld) [Volume 23.9 39.0-51.0 % Low 11-[address] [facility] fraction] (14036) Comment: Performed By: #### CBC, CMP, URIC ####[address] [address] Hemoglobin (Bld) 7.1 13.0-17.0 g/dL Low 11-05-2019 [facility] [Mass/Vol] [place] (22517) Comment: Performed By: #### CBC, CMP, URIC ####[address] [address] MCH (RBC) [Entitic mass] 24.7 26.0-34.0 pG Low 11-[address] [facility] (65102) Comment: Performed By: #### CBC, CMP, URIC ####[address] [address] MCHC (RBC) [Mass/Vol] 29.7 30.5-36.0 g/dL Low 11-05-[address] [facility] (21689) Comment: Performed By: #### CBC, CMP, URIC ####[place] [address] MCV (RBC) [Entitic vol] 83.0 80.0-100.0 fL Normal 11-[address] [facility] (41954) Comment: Performed By: #### CBC, CMP, URIC ####[place] [address] [phone] Platelet mean <<DO NOT REPORT>> 9.0-12.7 Normal 11-05-19 20 [facility] volume (Bld) [place] (12667) [Entitic vol] Comment: Performed By: #### CBC, CMP, URIC ####[address] [place] [address] [phone] Platelets (Bld) [#/Vol] 62 150-400 k/uL Low [address] [facility] (59707) Comment: Result Comment: Result check ed and verified No clot detected. Performed By: #### CBC, CMP, URIC ####[address] [place] [address] RBC (Bld) [#/Vol] 2.88 4.20-6.00 m/uL Low 11-05-2019 [facility] (57485) Comment: Performed By: #### CBC, CMP, URIC ####[place] [address] [place] [place] [address] [phone] WBC (Bld) [#/Vol] 11.14 3.70-11.00 k/uL High 11-05-[address] [facility] (78752) Comment: Performed By: #### CBC, CMP, URIC ####[place] [address] [place] [place] [address] [phone] Absolute nRBC Unable to report <0.01 Normal [address] [facility] (31496) Comment: Performed By: #### PT, CBC, MG1, PHOS ####[address] [place] [address] Erythrocyte Unable to 11.5-15.0 Normal 11-05-2019 [facility] distribution width report [facility] (35173) (RBC) [Ratio] Comment: Performed By: #### PT, CBC, MG1, PHOS ####[address] [place] [address] [phone] Hematocrit (Bld) Unable to report 39.0-51.0 Normal 2019 [facility] [Volume fraction] Cl maricel (19005) Comment: Performed By: #### PT, CBC, MG1, PHOS ####[place] [address] [address] [address] Hemoglobin (Bld) Unable to report 13.0-17.0 Normal 2019 [facility] [Mass/Vol] [facility] (42517) Comment: Performed By: #### PT, CBC, MG1, PHOS ####[place] [address] [place] [address] [place] [address] [phone] MCH (RBC) [Entitic Unable to report 26.0-34.0 Normal 10-13 [facility] mass] [facility] (70786) Comment: Performed By: #### PT, CBC, MG1, PHOS ####[facility] [place] [address] [address] MCHC (RBC) Unable to report 30.5-36.0 Normal 11-05-2019 [facility] [Mass/Vol] [place] (11829) Comment: Performed By: #### PT, CBC, MG1, PHOS ####[place] [address] [place] [address] [place] [address] MCV (RBC) [Entitic Unable to report 80.0-100.0 Normal [facility] vol] [facility] (70988) Comment: Performed By: #### PT, CBC, MG1, PHOS ####[place] [address] [place] [place] [address] Platelet mean Unable to report 9.0-12.7 Normal 0 [facility] volume (Bld) [place] (47540) [Entitic vol] Comment: Performed By: #### PT, CBC, MG1, PHOS ####[address] [place] [address] Platelets (Bld) Unable to report 150-400 Normal 020 [facility] [#/Vol] [facility] (57392) Comment: Performed By: #### PT, CBC, MG1, PHOS ####[place] [address] [place] [address] RBC (Bld) [#/Vol] Unable to report 4.20-6.00 Normal 11-[address] [facility] (39354) Comment: Performed By: #### PT, CBC, MG1, PHOS ####[place] [address] [place] [address] WBC (Bld) [#/Vol] Unable to report 3.70-11.00 Normal - [facility] (65678) Comment: Result Comment: Account Cred ited Unable to assay. Clotted spe cimen. Called to A.L G70 0833 6.24.20 L.M Performed By: #### PT, CBC, MG1, PHOS ####[facility] [address] [place] [address] [phone] allied health on 01-11-23 ALLIED HEALTH HNO ID: [id number] Normal 020 [facility] Author: Marleny (Rt) Rei Castro [facility] ([id number]) Service: Radiology Author Type: Steam Plant Operator Type: Allied Health Filed: 11/05/2019 8:18 PM [...] Cane, Wheelchair, Crutches, etc.)? Inpatient: Screened on mt oor PATIENT GENDER DATA: Male PATIENT RELEVANT IMPLANT DATA REVIEWED: Yes RADIOLOGY DEPARTMENT: MR; Exam(s) Completed: Head: Routine B rain PERIPHERAL IV DATA: Inpatient: see LDA documentation SIGNED BY: Marleny Pierson [facility] November 05, 2019 8:18 PM therapy nt on 11-03 THERAPY NT HNO ID: [id number] Normal 11-04-2019 [facility] Author: Huy JasminePtMARCY Lima ([id number]) Service: Physical Therapy Author Type: Physical Therapist Type: Therapy (PT/OT/Speech/Resp) Filed: 11/04/2019 1:20 PM Note Text: PHYSICAL THERAPY MISSED VISIT SERVICE DATE: 11/04/2019 SERVICE TIME: 1320 to 1320 ROOM: [place] [address] Attempted Evaluation. Patient not seen due to Test/Procedure . Physical therapy will continue to monitor this patient. SIGNATURE: Huy Brown PT PATIENT NAME: Tiana Martínez DATE: November 04, 2019 TIME: 1:20 PM surgical pathology on 2019-11-04 SURGICAL Specimen originated from [facility] Normal 11-04-2019 [facility] PATHOLOGY Specimen #: [id number] [facility] Submitting Physician: LIZANDRO CRUZ M.D. [facility] ([id number]) FINAL DIAGNOSIS Lung, left main stem, endobronchial [...] in-situ hybridization tests have been determined by [facility] Pathology and [facility] Instit[facility] e (RT-PLMI) in a manner consistent with CLIA requirements. One or more of these tests have not been cleared or approved by the FDA. [facility] is regula alejandrina under CLIA as [...] in one cassette. Gross examination performed at [facility], [address] [place] [address] JT 11/04/2019 8:04:03 PM Date of Report: 11/06/2019 Date of Procedure: 11/04/2019 Date of Receipt: 11/04/2019 Submitted by: LIZANDRO CRUZ M.D. Additional Physician(s): SHAHEEN ROSENBERG Location: PULMONARY MAIN Diagnostic interpretation performed at [place] [address]. CLIA Number: [id number] social work on 2019 SOCIAL WORK HNO ID: [id number] Normal 0 [facility] Author: Jay Jordan (Microwave Oven Assembler) Mallory Lock ([id number]) Service: Oncology Author Type: Fur Cutter Type: Social Work Filed: 11/04/2019 2:05 PM Note Text: CIRCUITS ENGINEER PROGRESS NOTE Name: Tiana Martínez Date of [...] was provided to registra kannan and his automation machine operator's office over the years. He offered to [...] to patient 's family. Signature: Jay Tejada [facility] Sports Specialist Pager: [phone] Date: November 04, 2019 Time: 10:58 AM protime on PT Coag (PPP) [Time] 10.4 9.7-13.0 sec Normal [address] [facility] (04775) Comment: Performed By: #### CBC, PT, MG1, PHOS ####[facility] [place] [address] [phone] PT Coag (PPP) [Time] 1.0 0.9-1.3 s Normal [address] [facility] (52206) Comment: Result Comment: Vitamin K An tagonist (VKA) Therapeutic Range: INR 2 to 3 (Target INR of 2.5) Note: For patients treated w ith VKA drugs, such as warfarin, the [place] [employer] 2012 Guideline recommends a therapeutic INR range of 2 to 3 (target INR of 2.5). This recommendation includes high-risk patients with antiphospholipid syndrome with previous arterial or venous thromboembolism, current-generation mechanical or bioprosthetic aortic heart valve replacement. Note: Patients with music box mechanic al aortic valve replacement and additional risk factors for thromboembolic events (atrial fibrillation, previous thromboembolism, LV dysfunction, hypercoagulable conditions) or an older generation mecha nical AVR (i.e., ball in-Cage) or any mechanical MVR should have a INR therapeutic range of 2.5 to 3.5 (target INR of 3). Vitaliy SEALS, et al. Chest 2012 , 141:7S-47S Janet MCNEAL et al. [facility] 20 , 70: 252-289 Performed By: #### CBC, PT, MG1, PHOS ####[facility] [address] [place], [place] [address] [phone] progress on 2019-10 PROGRESS HNO ID: [id number] Normal 11-04-2019 [facility] Author: Lizandro Lock ([id number]) Service: Pulmonary Disease Author Type: Physician Type: [...] 04, 2019 5:03 PM PROGRESS HNO ID: [id number] Normal 11-04-2019 [facility] Author: Matthew Lock ([id number]) Service: Oncology Author Type: Physician Type: Progress [...] 50 [phone] ? Output (ml) 106 285 7395 1275 225 Net (ml) -[phone] -1440 [...] pending 10/31/19 1215 vte pharmacologic prophylaxis contraindicated (mt,wv) 10/31/19 1215 pneumatic compression stockings (mt,wv) 10/31/19 1215 activity - mobilize patient ([place]) SIGNATURE: Skylar Seay MD PHD PGY-1 PATIENT NAME: Tiana medina DATE: 11/04/2019 TIME: 7:58 AM PAGER: [phone] Note: These recommendations are not final until staffed by max harris HEMATOLOGY/MEDICAL ONCOLOGY/[facility] BRAIN TUMOR CENTER STA FF: [...] [place] [address] phosphorus on 11-03 Phosphate [Mass/Vol] 3.1 2.7-4.8 mg/dL Normal [address] [facility] (26823) Comment: Performed By: #### CBC, PT, MG1, PHOS ####[facility] [address] [place] [address] [phone] magnesium on 2019-11-03 Magnesium [Mass/Vol] 2.9 1.7-2.3 mg/dL High [address] [facility] (99882) Comment: Performed By: #### CBC, PT, MG1, PHOS ####[facility] [address] [place] [address] [phone] cytology on 2019-10 CYTOLOGY Specimen originated from [facility] Normal 11-04-2019 [facility] Specimen #: [id number] Clinic Submitting Physician: LIZANDRO CRUZ M.D. [facility] SPECIMEN SUBMITTED ( 29619) A: BRONCHIAL, #21 SUPERTRAX,TBNA,LEFT MAINSTEM MASS FINE [...] in-situ hybridization tests have been determined by [facility] [place] [facility] Pathology and Laboratory Medicine Instit[facility] e (RT-PLTX) in a manner consistent with CLIA requirements. One or more of these tests have not been cleared or approved by the FDA. -[facility] is regula alejandrina under CLIA as [...] discrete evaluation episode. Intra-procedural assessment performed at [facility], [facility] [place] [address] GROSS DESCRIPTION A: 30cc clear pink CytoLyt with particles and 8 smears (4 Di ff Quik and 4 pap stained) RPMI received. Hold for FLOW STAINS A: BRONCHIAL, #21 SUPERTRAX,TBNA,LEFT MAINSTEM MASS FINE NEE DLE ASPIRATE (THINPREP, SMEARS AND CELL BLOCK) SMEARS RECEIVED x 8, THIN PREP Non-Talent Solutions Manager, CELL BLOCK, H&E, Ini tial, CYTOKERATIN AE1&3, CD56, TTF1, CHROMOGRANIN, SYNAPTOPHYSIN, INSM1 Date of Report: 11/05/2019 Date of Procedure: 11/04/2019 Date of Receipt: 11/04/2019 Submitted by: LIZANDRO CRUZ M.D. Additional Physician(s): SHAHEEN ROSENBERG Location: PULMONARY MAIN Diagnostic interpretation performed at [facility], [address] [place] [address]. CLIA Number: [id number] cbc on 2019-11-04 Absolute nRBC 0.96 <0.01 k/uL High 11-04-2019 [facility] (34042) Comment: Performed By: #### CBC ####C [facility] [address] [place], [place] [phone] Erythrocyte distribution 29.9 11.5-15.0 % High 11-03 [facility] width (RBC) [Ratio] [facility] (60448) Comment: Performed By: #### CBC ####C [address] [place], [place] [phone] Hematocrit (Bld) [Volume 27.9 39.0-51.0 % Low 11-[address] [facility] fraction] (59117) Comment: Performed By: #### CBC ####C [address] [phone] Hemoglobin (Bld) 7.9 13.0-17.0 g/dL Low 11-04-2019 [facility] [Mass/Vol] [place] (51839) Comment: Performed By: #### CBC ####C [address] [phone] MCH (RBC) [Entitic mass] 23.6 26.0-34.0 pG Low 11-[address] [facility] (26049) Comment: Performed By: #### CBC ####C [place] [phone] MCHC (RBC) [Mass/Vol] 28.3 30.5-36.0 g/dL Low 11-04-[address] [facility] (67241) Comment: Performed By: #### CBC ####C [address] [phone] MCV (RBC) [Entitic vol] 83.3 80.0-100.0 fL Normal 11-[address] [facility] (66380) Comment: Performed By: #### CBC ####C [address] [phone] Platelet mean <<DO NOT REPORT>> 9.0-12.7 Normal 11-04-19 20 [facility] volume (Bld) Roderick edwards (86839) [Entitic vol] Comment: Performed By: #### CBC ####C [address] [phone] Platelets (Bld) [#/Vol] 87 150-400 k/uL Low [address] [facility] (79426) Comment: Result Comment: Result check ed and verified No clot detected. Performed By: #### CBC ####C [place] [id number] [phone] RBC (Bld) [#/Vol] 3.35 4.20-6.00 m/uL Low 11-04-2019 [facility] (40471) Comment: Performed By: #### CBC ####C [place] [id number] [phone] WBC (Bld) [#/Vol] 10.71 3.70-11.00 k/uL Normal 11-04-[address] [facility] (62796) Comment: Performed By: #### CBC ####C [place] [phone] Absolute nRBC 1.00 <0.01 k/uL High 11-04-2019 [facility] (29245) Comment: Performed By: #### CBC, PT, MG1, PHOS ####[place] [address] [phone] Erythrocyte distribution 29.7 11.5-15.0 % High 11-03 [facility] width (RBC) [Ratio] [facility] (55002) Comment: Performed By: #### CBC, PT, MG1, PHOS ####[address] [address] [phone] Hematocrit (Bld) [Volume 26.0 39.0-51.0 % Low 11-[address] [facility] fraction] (08607) Comment: Performed By: #### CBC, PT, MG1, PHOS ####[address] [address] [phone] Hemoglobin (Bld) 7.5 13.0-17.0 g/dL Low 11-04-2019 [facility] [Mass/Vol] [place] (56811) Comment: Performed By: #### CBC, PT, MG1, PHOS ####[place] [address] [address] [address] MCH (RBC) [Entitic mass] 24.0 26.0-34.0 pG Low 11-[address] [facility] (98755) Comment: Performed By: #### CBC, PT, MG1, PHOS ####[place] [address] [address] [address] MCHC (RBC) [Mass/Vol] 28.8 30.5-36.0 g/dL Low 11-04-[address] [facility] (44855) Comment: Performed By: #### CBC, PT, MG1, PHOS ####[address] [place] [address] [phone] MCV (RBC) [Entitic vol] 83.3 80.0-100.0 fL Normal 11-[address] [facility] (25108) Comment: Performed By: #### CBC, PT, MG1, PHOS ####[place] [address] [phone] Platelet mean <<DO NOT REPORT>> 9.0-12.7 Normal 11-04-19 [facility] volume (Bld) Bryanvela nd (18822) [Entitic vol] Comment: Performed By: #### CBC, PT, MG1, PHOS ####[address] [address] [phone] Platelets (Bld) [#/Vol] 99 150-400 k/uL Low [address] [facility] (13589) Comment: Result Comment: Result check ed and verified No clot detected. Performed By: #### CBC, PT, MG1, PHOS ####[address] [address] RBC (Bld) [#/Vol] 3.12 4.20-6.00 m/uL Low 11-04-2019 [facility] (47628) Comment: Performed By: #### CBC, PT, MG1, PHOS ####[facility] [address] [place], [place] [address] [phone] WBC (Bld) [#/Vol] 11.16 3.70-11.00 k/uL High 11-04-[address] [facility] (49723) Comment: Performed By: #### CBC, PT, MG1, PHOS ####[facility] [address] [place], [place] [address] [phone] anes post on 11-03 ANES POST HNO ID: [id number] Normal 11-04-2019 [facility] Author: Meghana Fabian [facility] ([id number]) Service: Anesthesiology Author Type: Anesthesiologist Type: Anesthesia [...] 04, 2019 TIME: 4:23 PM PAGER/CONTACT #: [phone] xr chest 1v frontal port on 2019-11-03 XR CHEST 1V * * *Final Report* * * Normal 11-02 [facility] FRONTAL PORT DATE OF EXAM: Nov 03 2019 8:24AM [facility] ([id number]) YENY 5376 - XR CHEST 1V FRONTAL [...] is atherosclerotic. Other: . IMPRESSION: See result. Mask Design Engineer: SCOOBY Transcribe Date/Time: Nov 03 2019 9:45A Dictated by : KATIE LUNA MD This examination was interpreted and the report reviewed and electronically signed by: KATIE LUNA MD on Nov 03 2019 9:47AM EST [id number] us chest effusion survey on 2019-11-03 US CHEST * * *Final Report* * * Normal 020 [facility] EFFUSION SURVEY DATE OF EXAM: Nov 03 2019 1:26PM [facility] ([id number]) [facility] - US CHEST EFFUSION SURVEY / [...] Depth to mid fluid collection: 4.4 cm Mask Design Engineer: SCOOBY Transcribe Date/Time: Nov 03 2019 1:40P Dictated by : NAYELI MONTALVO MD This examination was interpreted and the report reviewed and electronically signed by: NAYELI MONTALVO MD on Nov 03 2019 1:42PM EST [id number] therapy nt on 11-02 THERAPY NT HNO ID: [id number] Normal 11-03-2019 [facility] Author: Jamarcus JasminePt) Vannesa Lock ([id number]) Service: Physical Therapy Author Type: Physical Therapist Type: Therapy (PT/OT/Speech/Resp) Filed: 11/03/2019 10:09 AM Note Text: PHYSICAL THERAPY MISSED VISIT SERVICE DATE: 11/03/2019 SERVICE TIME: 1006 to 1006 ROOM: [place] [address] ([facility] Nuclear Medicine) Attempted Evaluation. Patient not seen due to Test/Procedure . Pt with AMET overnight, now off floor. PT to follow up as able / appropri ate. SIGNATURE: Jamarcus Granado PT PATIENT NAME: Tiana Martínez DATE: November 03, 2019 TIME: 10:09 AM reticulocyte on Abs Retic 0.117 0.0180-0.1000 M/uL High 11-03-2019 [facility] (33178) Comment: Performed By: #### CBC, RETI C ####[facility] [address], [place] [phone] Retic% 3.7 0.4-2.0 % High 11-02-2019 [facility] (81920) Comment: Performed By: #### CBC, RETI C ####[facility], [place] [phone]- [phone] protime on PT Coag (PPP) [Time] 1.0 0.9-1.3 s Normal [address] [facility] (80910) Comment: Result Comment: Vitamin K An tagonist (VKA) Therapeutic Range: INR 2 to 3 (Target INR of 2.5) Note: For patients treated w ith VKA drugs, such as warfarin, the [place] [employer] 2012 Guideline recommends a therapeutic INR range of 2 to 3 (target INR of 2.5). This recommendation includes high-risk patients with antiphospholipid syndrome with previous arterial or venous thromboembolism, current-generation mechanical or bioprosthetic aortic heart valve replacement. Note: Patients with music box mechanic al aortic valve replacement and additional risk factors for thromboembolic events (atrial fibrillation, previous thromboembolism, LV dysfunction, hypercoagulable conditions) or an older generation mecha nical AVR (i.e., ball in-Cage) or any mechanical MVR should have a INR therapeutic range of 2.5 to 3.5 (target INR of 3). Vitaliy GH, et al. Chest 2012 , 141:7S-47S Janet RA, et al. [facility] 20 17, 70: 252-289 Performed By: #### PT, CBC, BMP, MG1, PHOS ####[facility] [address] [place], [place] [phone] PT Coag (PPP) [Time] 10.4 9.7-13.0 sec Normal [address] [facility] (02244) Comment: Performed By: #### PT, CBC, BMP, MG1, PHOS ####[facility] [address] [place], [place] [phone] progress on 2019-10 PROGRESS HNO ID: [id number] Normal 11-03-2019 [facility] Author: Skylar Shraif (Res) MD [place] ([id number]) Service: Oncology Author Type: Resident Type: Progress [...] (ml) 50 [phone] ? Output (ml) 675 346 9050 200 Net (ml) -902 300 -1440 -200 [...] pending 10/31/19 1215 vte pharmacologic prophylaxis contraindicated (mt,wv) 10/31/19 1215 pneumatic compression stockings ([place]) 10/31/19 1215 activity - mobilize patient [place]) SIGNATURE: Skylar Seay MD PHD PGY-1 PATIENT NAME: Tiana medina DATE: 11/03/2019 TIME: 7:58 AM PAGER: [phone] Note: These recommendations are not final until staffed by max GUTIÉRREZ HNO ID: [id number] [place] 11-03-2019 [facility] Author: Simi JasmineKettering HealthRei Rivera [place] ([id number]) Service: Nuclear Medicine Author Type: Steam Plant Operator Type: Progress Notes Filed: 11/03/2019 9:01 AM [...] unstable renal function, e.g. those with ac tangirnaq kidney injury, the eGFR may not accurately [...] care on PLAN OF CARE HNO ID: [id number] Normal 11-03-19 20 [facility] Author: Levy (Mckenna) Yadira Lock ([id number]) Service: Oncology Author Type: Resident Type: Plan [...] Phosphate [Mass/Vol] 3.6 2.7-4.8 mg/dL Normal [address] [facility] (01210) Comment: Performed By: #### PT, CBC, BMP, MG1, PHOS ####[facility] [address] [place], [place] [phone] nursing prog on NURSING HNO ID: [id number] [place] 11-03-2019 [facility] Author: Clau JasmineRn) [facility] Service: Jovan Adams [facility] Author Type: Registered Nurse ([id number]) Type: Nursing Progress Note Filed: 11/04/2019 2:17 AM Note Text: Nursing Progress Note Patient Name: Tiana Martínez Patient Location: [place] [address] [address] Daily Note: 2100 2 units platelets administered per order. No s/sx trans fusion reaction. This note was completed by: Clau Soriano RN NURSING HNO ID: [id number] [place] 11-03-2019 [facility] Author: Trina JasmineRn) [facility] Service: Jovan yo Author Type: Registered Nurse ([id number]) Type: Nursing Progress Note Filed: 11/03/2019 5:11 PM Note Text: This RN instructed Katie RN on pt having bronch tomorrow . Pt not on blood thinner. Verbalized understanding of said instr uctions. NURSING HNO ID: [id number] [place] 11-03-2019 [facility] Author: Clau Hernandez) [facility] Service: Jovan Adams [facility] Author Type: Registered Nurse ([id number]) Type: Nursing Progress Note Filed: 11/03/2019 4:38 AM Note Text: Nursing Progress Note Patient Name: Tiana Martínez Patient Location: [place] [address]/[id number] Daily Note: 0026 A Fib RVR HR [...] *Final Report* * * Normal 0 11-03-2019 [facility] BODY INIT DATE OF EXAM: Nov 03 2019 10:03AM [place] ([id number]) N 0061 - NM PET/CT WHOLE BODY [...] 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 Mask Design Engineer: SCOOBY Transcribe Date/Time: Nov 03 2019 10:22A Dictated by : REMI GRAYSON MD This examination was interpreted and the report reviewed and electronically signed by: REMI GRAYSON MD on Nov 03 2019 10:52AM EST [id number] medical edwin on MEDICAL EDWIN HNO ID: [id number] Normal 11-03-19 [facility] Author: Bryant Lock ([id number]) Service: Anesthesiology Author Type: Anesthesiologist Type: Chg [...] 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 (22753) Comment: Performed By: #### PT, CBC, BMP, MG1, PHOS ####[facility] [place], [place] [phone] intermed rapid covid on 2019-11-03 COVID 19 Result Negative for Negative for Normal 11-03-19 20 [facility] HEALTHCARE REPRESENTATIVE COVID19 (SARS COVID19 (SARS Cl maricel (22146) CoV2) by PCR. CoV2) by PCR. Comment: Result Comment: This test wa s developed and its performance characteristics determined by [facility]'s [facility] [place]. This test has been authorized by FDA [...] 12, 2019. Performed By: #### ITCOVD ## ##[facility] [address] [place], [place] [phone] COVID 19 Source HEALTHCARE REPRESENTATIVE Nasopharyngeal Swab Normal 0 11-03-[address] [facility] (27013) Comment: Performed By: #### ITCOVD ## ##[facility] [place], [place] [phone] ecg complete on ECG COMPLETE NAME : TIANA MARTÍNEZ 11-03-19 [facility] PID : [id number] Bladimir evans ([id number]) : 1940 Gender : Male Race : ORD : [id number] Procedure Date : Nov 03 2019 00:39:07 Edit Date : Nov 04 2019 21:25:23 Diagnosis:ATRIAL FIBRILLATION WITH RAPID VENTRICULAR RESPONS E NONSPECIFIC T WAVE ABNORMALITY ABNORMAL ECG Confirmed by LEONA KIM M.D. ([id number]) on 11/04/2019 9:22:56 PM Ventricular Rate : 113 BPM QRS Duration : 94 ms Q-T Interval : 292 ms QTC Calculation(Bazett) : 400 ms R [place] : 47 degrees T [place] : 63 degrees Test Reason : AMET Location : 170 : [facility]70[facility] Overread By : LEONA KIM M.D. Edited By : LEONA KIM M.D. 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 7443-7034 - COPD (chronic obstructive pulmonary disease) (HCC) [...] Care and Sleep Medicine cnpn on 2019-11-03 [facility]) Normal 11-03-2019 [place] Kate TIANA MARTÍNEZ ([id number]) 1940 [facility] Date Time Provider Department (06932) 11/03/19 CARMELO ROSEN (RN) RADN During your [...] Oconnell - Fully Assessed 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 fraction] (39003) Comment: Performed By: #### CBC ####C [address] [phone] Hemoglobin (Bld) 7.7 13.0-17.0 g/dL Low 11-03-2019 [facility] [Mass/Vol] [place] (33459) Comment: Performed By: #### CBC ####C [address] [phone] MCH (RBC) [Entitic mass] 24.1 26.0-34.0 pG Low 11-[address] [facility] (93578) Comment: Performed By: #### CBC ####C [address] [phone] MCHC (RBC) [Mass/Vol] 29.8 30.5-36.0 g/dL Low 11-03-[address] [facility] (57729) Comment: Performed By: #### CBC ####C [place] [phone] MCV (RBC) [Entitic vol] 80.6 80.0-100.0 fL Normal 11-[address] [facility] (44507) Comment: Performed By: #### CBC ####C [address] [phone] Platelet mean <<DO NOT REPORT>> 9.0-12.7 Normal 11-03-19 20 [facility] volume (Bld) [place] ([address]) [Entitic vol] Comment: Performed By: #### CBC ####C [address] [phone] Platelets (Bld) [#/Vol] 31 150-400 k/uL Low [address] [facility] (15325) Comment: Result Comment: Result check ed and verified No clot detected. Performed By: #### CBC ####C [address] [phone] RBC (Bld) [#/Vol] 3.20 4.20-6.00 m/uL Low 11-03-2019 [facility] (60793) Comment: Performed By: #### CBC ####C [address] [phone]- [phone] WBC (Bld) [#/Vol] 9.85 3.70-11.00 k/uL Normal 11-03-[address] [facility] (12117) Comment: Performed By: #### CBC ####C [address] [id number] [phone] Absolute nRBC 0.83 <0.01 k/uL High 11-03-2019 [facility] (87492) Comment: Performed By: #### PT, CBC, BMP, MG1, PHOS ####[address] [phone] Erythrocyte distribution 29.0 11.5-15.0 % High 11-02 [facility] width (RBC) [Ratio] [place] (26009) Comment: Performed By: #### PT, CBC, BMP, MG1, PHOS ####[place] [address] [place], [place] [phone] Hematocrit (Bld) [Volume 26.6 39.0-51.0 % Low 11-[address] [facility] fraction] (57426) Comment: Performed By: #### PT, CBC, BMP, MG1, PHOS ####[place] [address] [place], [place] [phone] Hemoglobin (Bld) 7.8 13.0-17.0 g/dL Low 11-03-2019 [facility] [Mass/Vol] [place] (14151) Comment: Performed By: #### PT, CBC, BMP, MG1, PHOS ####[place] [address] [place] [phone] MCH (RBC) [Entitic mass] 23.7 26.0-34.0 pG Low 11-[address] [facility] (56002) Comment: Performed By: #### PT, CBC, BMP, MG1, PHOS ####[place] [address] [place], [place] [phone] MCHC (RBC) [Mass/Vol] 29.3 30.5-36.0 g/dL Low 11-03-[address] [facility] (47101) Comment: Performed By: #### PT, CBC, BMP, MG1, PHOS ####[place] [address] [place], [place] [phone] MCV (RBC) [Entitic vol] 80.9 80.0-100.0 fL Normal 11-[address] [facility] (81564) Comment: Performed By: #### PT, CBC, BMP, MG1, PHOS ####[place] [address] [place], [place] [phone] Platelet mean <<DO NOT REPORT>> 9.0-12.7 Normal 11-03-19 20 [facility] volume (Bld) [place] ([address]) [Entitic vol] Comment: Performed By: #### PT, CBC, BMP, MG1, PHOS ####[facility] [place], [place] [phone] Platelets (Bld) [#/Vol] 33 150-400 k/uL Low [address] [facility] (88922) Comment: Result Comment: Result check ed and verified No clot detected. Performed By: #### PT, CBC, BMP, MG1, PHOS ####[facility] [place], [place] [phone] RBC (Bld) [#/Vol] 3.29 4.20-6.00 m/uL Low 11-03-2019 [facility] (34284) Comment: Performed By: #### PT, CBC, BMP, MG1, PHOS ####[facility] [place], [place] [phone] WBC (Bld) [#/Vol] 10.08 3.70-11.00 k/uL Normal 11-03-[address] [facility] (33819) Comment: Performed By: #### PT, CBC, BMP, MG1, PHOS ####[facility] [place], [place] [phone] Absolute nRBC 0.96 <0.01 k/uL High 11-03-2019 [facility] (61647) Comment: Performed By: #### CBC, RETI C ####[facility]Cleveland[place], [place] [phone] Comment Slight Normal 11-03-[address] [facility] (56701) Comment: Result Comment: Polychromasi a Few RBC Fragments Few Ovalocytes Performed By: #### CBC, RETI C ####[facility]Cleveland[place], [place] [phone] Erythrocyte distribution 28.9 11.5-15.0 % High 11-02 [facility] width (RBC) [Ratio] [place] (94724) Comment: Performed By: #### CBC, RETI C ####[place] [address] [place], [place] [phone] Hematocrit (Bld) [Volume 25.9 39.0-51.0 % Low 11-[address] [facility] fraction] (25293) Comment: Performed By: #### CBC, RETI C ####[address] [place], [place] [phone] Hemoglobin (Bld) 7.7 13.0-17.0 g/dL Low 11-03-2019 [facility] [Mass/Vol] [place] (63410) Comment: Performed By: #### CBC, RETI C ####[address] [place], [place] [phone]- [phone] MCH (RBC) [Entitic mass] 24.1 26.0-34.0 pG Low 11-[address] [facility] (82720) Comment: Performed By: #### CBC, RETI C ####[address] [place], [place] [phone] MCHC (RBC) [Mass/Vol] 29.7 30.5-36.0 g/dL Low 11-03-[address] [facility] (92147) Comment: Performed By: #### CBC, RETI C ####[address] [place], [place] [phone]- [phone] MCV (RBC) [Entitic vol] 80.9 80.0-100.0 fL Normal 11-[address] [facility] (39564) Comment: Performed By: #### CBC, RETI C ####[address] [place], [place] [phone] Platelet mean <<DO NOT REPORT>> 9.0-12.7 Normal 11-03-19 20 [facility] volume (Bld) [place] ([address]) [Entitic vol] Comment: Performed By: #### CBC, RETI C ####[place] [address] [place], [place] [phone]- [phone] Platelets (Bld) [#/Vol] 35 150-400 k/uL Low [address] [facility] (36331) Comment: Result Comment: Result check ed and verified No clot detected. Performed By: #### CBC, RETI C ####[address] [place], [place] [phone] RBC (Bld) [#/Vol] 3.20 4.20-6.00 m/uL Low 11-03-2019 [facility] (77143) Comment: Performed By: #### CBC, RETI C ####[place] [address] [place], [place] [phone] Review Done Normal 11-03-[address] [facility] (38228) Comment: Performed By: #### CBC, RETI C ####[address] [phone] WBC (Bld) [#/Vol] 10.56 3.70-11.00 k/uL Normal 11-03-[address] [facility] (68429) Comment: Performed By: #### CBC, RETI C ####[address] [phone] case mgt init asses on 2019-11-03 CASE MGT INIT HNO ID: [id number] Normal 020 [facility] Author: Saud (Rn) Carlos Bourne RN [place] (07901) Service: Care Management Author Type: Registered Nurse Type: Care Mgt Initial Assessment Filed: 11/03/2019 2:50 PM Note Text: CARE MANAGEMENT: ASSESSMENT AND DISCHARGE PLAN SERVICE DATE: November 03, 2019 SERVICE TIME: 2:45 PM PRIMARY CARE PHYSICIAN: Kevon Harrell MD ADMISSION STATUS: Inpatient Needs Prior to Discharge: Ready for Discharge MEDICAL: MEDICARE A AND B 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 Stated Goals: To have reduction in sy [...] Current Advance Directive: Health Care Power of Cementer Helper In Chart: No Concrete Pavement Installer Attempted to Assist with AD Completion: Yes [...] Patient Currently Receive Any Community Services or [facility] Care?: None Equipment Prior to Admission: None SOCIAL: Living Arrangements: Home Lives With: Alone Financial Resources: RetiredPrimary Contact: Extended Emerge ncy Contact Information Primary Emergency Contact: Tanya CaponeTiana Mobile Relation: Son Supportive Patient Contact:: Yes Contact Resources: Family Family Name/Phone: Tiana BlockWph-[phone] (M) Social Needs Food insecurity Worry: Not [...] Mostly I feel financially burdened by my rgj-pj-hqultd expenses for my prescription medication:: 0 - [...] POA (not on file) Tiana medina at [phone] (M) to introduce myself and to 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 Patient had been independent with no home [...] 03, 2019 TIME: 2:45 PM PAGER/CONTACT #: [phone] basic metabolic panl on 2019-11-03 Anion gap [Moles/Vol] 15 9-18 mmol/L Normal 11-03-[address] [facility] (40545) Comment: Performed By: #### BMP ####C [facility] [address] [place], [place] [phone]- [phone] Calcium [Mass/Vol] 9.7 8.5-10.2 mg/dL Normal 11-03-[address] [facility] (93092) Comment: Performed By: #### BMP ####C [facility] [address] [place], [place] [phone]- [phone] Chloride [Moles/Vol] 102 97-105 mmol/L Normal [address] [facility] (27900) Comment: Performed By: #### BMP ####C [facility] [address] [place], [place] [phone]- [phone] CO2 [Moles/Vol] 29 22-30 mmol/L Normal 11-03-2019 [facility] (51385) Comment: Performed By: #### BMP ####C [facility] [place], [place] [phone] Creatinine [Mass/Vol] 1.17 0.73-1.22 mg/dL Normal 11-03-[address] [facility] (72639) Comment: Performed By: #### BMP ####C [facility] [place], [place] [phone]- [phone] eGFR- Amer. >60 Normal 11-03-[address] [facility] (28870) Comment: Performed By: #### BMP ####C [address] [phone]- [phone] GFR/1.73 sq M predicted among 60 . Normal 11-03-[address] [facility] non-blacks MDRD (S/P/Bld) [Vol (77234) rate/Area] Comment: Result Comment: eGFR (Estima alejandrina [...] actual GFR. Performed By: #### BMP ####C [facility] [place], [place] [phone]- [phone] Glucose [Mass/Vol] 142 74-99 mg/dL High 11-03-[address] [facility] (87519) Comment: Result Comment: The [place] Diabetes [employer] (ADA) provides guidance for cutoff [...] for diagnosis of diabetes. Reference: Standards of [facility] Care in Diabetes 2016, [place] [employer]. Diabetes Care. 2016.39(Suppl 1). Performed By: #### BMP ####C [place] [phone]- [phone] Potassium [Moles/Vol] 3.2 3.7-5.1 mmol/L Low 11-03-[address] [facility] (27416) Comment: Performed By: #### BMP ####C [place] [phone]- [phone] Sodium [Moles/Vol] 146 136-144 mmol/L High 11-03-[address] [facility] (38403) Comment: Performed By: #### BMP ####C [place] [id number] [phone] Urea nitrogen [Mass/Vol] 34 9-24 mg/dL High 11-[address] [facility] (59729) Comment: Performed By: #### BMP ####C [place] [id number]- [phone] Anion gap [Moles/Vol] 14 9-18 mmol/L Normal 11-03-[address] [facility] (36741) Comment: Performed By: #### PT, CBC, BMP, MG1, PHOS ####[address] [place], [place] [phone] Calcium [Mass/Vol] 9.8 8.5-10.2 mg/dL Normal 11-03-[address] [facility] (33270) Comment: Performed By: #### PT, CBC, BMP, MG1, PHOS ####[place] [address] [place], [place] [phone] Chloride [Moles/Vol] 100 97-105 mmol/L Normal [address] [facility] (48208) Comment: Performed By: #### PT, CBC, BMP, MG1, PHOS ####[facility] [address] [place], [place] [phone] CO2 [Moles/Vol] 27 22-30 mmol/L Normal 11-03-2019 [facility] (67496) Comment: Performed By: #### PT, CBC, BMP, MG1, PHOS ####[facility] [address] [place], [place] [phone] Creatinine [Mass/Vol] 1.26 0.73-1.22 mg/dL High 11-03-[address] [facility] (31552) Comment: Performed By: #### PT, CBC, BMP, MG1, PHOS ####[facility] [address] [place], [place] [phone] eGFR- Amer. >60 Normal 11-03-[address] [facility] (95454) Comment: Performed By: #### PT, CBC, BMP, MG1, PHOS ####[facility] [address] [place], [place] [phone] GFR/1.73 sq M predicted among 55 . Normal 11-03-[address] [facility] non-blacks MDRD (S/P/Bld) [Vol (07395) rate/Area] Comment: Result Comment: eGFR (Estima alejandrina GFR) Units of measure: mL/min/1.73 meters squared eGFR is derived from the ree xpressed MDRD Study equation using the following parameters: serum creatinine, age, gender and race. The creatinine assay has been calibrated to be traceable to IDUsersnap. An eGFR <60 mL/min/1.73m2 fo r >3 months is consistent with chronic kidney disease. Refer to KDOQI guidelines for clinical interpretation. In patients with unstable re nal function, e.g. those with acute kidney injury, the eGFR may not accurately reflect actual GFR. Performed By: #### PT, CBC, BMP, MG1, PHOS ####[facility] [address] [place], [place] [phone] Glucose [Mass/Vol] 179 74-99 mg/dL High 11-03-[address] [facility] (21727) Comment: Result Comment: The [place] Diabetes Association (ADA) provides guidance for cutoff [...] for diagnosis of diabetes. Reference: Standards of [facility] Care in Diabetes 2016, [place] [employer]. Diabetes Care. 2016.39(Suppl 1). Performed By: #### PT, CBC, BMP, MG1, PHOS ####[facility] [place], [place] [phone] Potassium [Moles/Vol] 3.0 3.7-5.1 mmol/L Low 11-03-[address] [facility] (63739) Comment: Performed By: #### PT, CBC, BMP, MG1, PHOS ####[facility] [address] [place], [place] [phone] Sodium [Moles/Vol] 141 136-144 mmol/L Normal 11-03-[address] [facility] (92295) Comment: Performed By: #### PT, CBC, BMP, MG1, PHOS ####[facility] [address] [place], [place] [phone] Urea nitrogen [Mass/Vol] 35 9-24 mg/dL High 11-[address] [facility] (22115) Comment: Performed By: #### PT, CBC, BMP, MG1, PHOS ####[facility] [address] [place], [place] [phone] xr chest 1v frontal port on 2019-11-02 XR CHEST 1V * * *Final Report* * * Normal 11-01 [facility] FRONTAL PORT DATE OF EXAM: Nov 02 2019 11:41AM [place] (51900) YENY 5376 - XR CHEST 1V FRONTAL [...] chest CT. Other: . IMPRESSION: See result. Mask Design Engineer: PSCB Transcribe Date/Time: Nov 02 2019 1:01P Dictated by : KATIE LUNA MD This examination was interpreted and the report reviewed and electronically signed by: KATIE LUNA MD on Nov 02 2019 1:05PM EST [id number] type and screen on 2019-11-02 ABO/RH(D) O POSITIVE Normal 11-02-2019 [facility] (69130) Comment: Performed By: #### TSCR #### [facility] [address] [place], [place] [phone] progress on 2019-10 PROGRESS HNO ID: [id number] Normal 11-02-2019 [facility] Author: Shaheen Rosenberg [place] ([id number]) Service: Oncology Author Type: Physician Type: Progress [...] pending 10/31/19 1215 vte pharmacologic prophylaxis contraindicated (mt,wv) 10/31/19 1215 pneumatic compression stockings (mt,wv) 10/31/19 1215 activity - mobilize patient ([place]) SIGNATURE: Skylar Seay MD PHD PGY-1 PATIENT NAME: Tiana medina DATE: 11/02/2019 TIME: 10:58 AM PAGER: [phone] Note: These recommendations are not final until staffed by max harris See my note from earlier today. Shaheen Rosenberg MD PROGRESS HNO ID: [id number] Normal 11-02-2019 [facility] Author: Shaheen Rosenberg [place] ([id number]) Service: Oncology Author Type: Physician Type: Progress [...] negative. Shaheen Rosenberg MD MA Associate Staff [facility] [place] November 02, 2019 nursing prog on NURSING PROG HNO ID: [id number] Normal 11-02-19 [facility] Author: Arlette JasmineRn) JUNIE Guillermo [place] ([id number]) Service: Nursing Author Type: Registered Nurse Type: [...] per floor RN. NURSING PROG HNO ID: [id number] Normal 11-02-19 [facility] Author: Arlette JasmineRn) JUNIE Guillermo [place] ([id number]) Service: Nursing Author Type: Registered Nurse Type: Nursing Progress Note Filed: 11/02/2019 10:04 AM Note Text: Handoff report obtained from floor RN for patient MRI scan. Pt unable to lie flat during trial due to respiratory status. RN to notif y ordering provider and notify imaging of status update for scan. cbc on 2019-11-02 Absolute nRBC 0.82 <0.01 k/uL High 11-02-2019 [facility] (56272) Comment: Performed By: #### CBC, BMP ####[facility] [address] [place], [place] [phone] Erythrocyte distribution 28.9 11.5-15.0 % High 11-01 [facility] width (RBC) [Ratio] [place] (01027) Comment: Performed By: #### CBC, BMP ####[facility] [address] [place], [place] [phone] Hematocrit (Bld) [Volume 26.0 39.0-51.0 % Low 11-[address] [facility] fraction] (63871) Comment: Performed By: #### CBC, BMP ####[facility] [address] [place], [place] [phone] Hemoglobin (Bld) 7.8 13.0-17.0 g/dL Low 11-02-2019 [facility] [Mass/Vol] [place] (29348) Comment: Performed By: #### CBC, BMP ####[place] [address] [place], [place] [phone] MCH (RBC) [Entitic mass] 24.0 26.0-34.0 pG Low 11-[address] [facility] (78450) Comment: Performed By: #### CBC, BMP ####[place] [address], [place] [phone] MCHC (RBC) [Mass/Vol] 30.0 30.5-36.0 g/dL Low 11-02-[address] [facility] (95782) Comment: Performed By: #### CBC, BMP ####[address], [place] [phone] MCV (RBC) [Entitic vol] 80.0 80.0-100.0 fL Normal 11-[address] [facility] (57897) Comment: Performed By: #### CBC, BMP ####[place] [address], [place] [phone] Platelet mean <<DO NOT REPORT>> 9.0-12.7 Normal 11-02-19 [facility] volume (Bld) Bryan[place] nd (10745) [Entitic vol] Comment: Performed By: #### CBC, BMP ####[place] [address], [place] [phone] Platelets (Bld) [#/Vol] 36 150-400 k/uL Low [address] [facility] (41905) Comment: Result Comment: Result check ed and verified No clot detected. Performed By: #### CBC, BMP ####[place] [address], [place] [phone] RBC (Bld) [#/Vol] 3.25 4.20-6.00 m/uL Low 11-02-2019 [facility] (27446) Comment: Performed By: #### CBC, BMP ####[place] [address] [place], [place] [phone] WBC (Bld) [#/Vol] 9.84 3.70-11.00 k/uL Normal 11-02-[address] [facility] (05668) Comment: Performed By: #### CBC, BMP ####[place] [address], [place] [phone] basic metabolic panl on 2019-11-02 Anion gap [Moles/Vol] 16 9-18 mmol/L Normal 11-02-[address] [facility] (05258) Comment: Performed By: #### CBC, BMP ####[place] [address] [place], [place] [phone] Calcium [Mass/Vol] 9.5 8.5-10.2 mg/dL Normal 11-02-[address] [facility] (14797) Comment: Performed By: #### CBC, BMP ####[place] [address], [place] [phone] Chloride [Moles/Vol] 103 97-105 mmol/L Normal [address] [facility] (03441) Comment: Performed By: #### CBC, BMP ####[place] [address] [place], [place] [phone] CO2 [Moles/Vol] 24 22-30 mmol/L Normal 11-02-2019 [facility] (44375) Comment: Performed By: #### CBC, BMP ####[place] [address] [place], [place] [phone] Creatinine [Mass/Vol] 1.18 0.73-1.22 mg/dL Normal 11-02-[address] [facility] (76821) Comment: Performed By: #### CBC, BMP ####[place] [address] [place], [place] [phone] eGFR- Amer. >60 Normal 11-02-[address] [facility] (38179) Comment: Performed By: #### SAUMYA, BMP ####[facility] [place], [place] [phone] GFR/1.73 sq M predicted among 59 . Normal 11-02-[address] [facility] non-blacks MDRD (S/P/Bld) [Vol (62220) rate/Area] Comment: Result Comment: eGFR (Estima alejandrina [...] actual GFR. Performed By: #### CBC, BMP ####[facility] [place], [place] [phone] Glucose [Mass/Vol] 144 74-99 mg/dL High 11-02-[address] [facility] (97672) Comment: Result Comment: The [place] Diabetes Association (ADA) provides guidance for cutoff [...] for diagnosis of diabetes. Reference: Standards of [facility] Care in Diabetes 2016, [place] [employer] Association. Diabetes Care. 2016.39(Suppl 1). Performed By: #### CBC, BMP ####[facility] [place], [place] [phone] Potassium [Moles/Vol] 3.3 3.7-5.1 mmol/L Low 11-02-[address] [facility] (38154) Comment: Performed By: #### CBC, BMP ####[address], [place] [phone]- [phone] Sodium [Moles/Vol] 143 136-144 mmol/L Normal 11-02-[address] [facility] (45141) Comment: Performed By: #### CBC, BMP ####[place] [address] [place], [place] [phone] Urea nitrogen [Mass/Vol] 38 9-24 mg/dL High 11-[address] [facility] (70105) Comment: Performed By: #### CBC, BMP ####[place] [phone] type and screen on 2019-11-01 ABO/RH(D) O POSITIVE Normal 11-01-2019 [facility] (40809) Comment: Performed By: #### TSCR #### [address] [place] [phone] path interp w cbcdif on 2019-11-01 Abs Baso 0.00 <0.11 k/uL Normal 11-01-[address] [facility] (60028) Comment: Performed By: #### NTBNP, BM P, HAPTO, IRON, PTT, DDMER, FIBCT, FERR, STREV ####[facility] Laborat jfdby[address] [place], [place] [phone] Abs Polk 0.42 <0.87 k/uL Normal 11-01-[address] [facility] (29645) Comment: Performed By: #### NTBNP, BM P, HAPTO, IRON, PTT, DDMER, FIBCT, FERR, STREV ####[facility] Laborat [address]ymzq[address] [place], [place] [phone] Abs Neut 5.94 1.45-7.50 k/uL Normal 11-01-[address] [facility] (76315) Comment: Performed By: #### NTBNP, BM P, HAPTO, IRON, PTT, DDMER, FIBCT, FERR, STREV ####[facility] Laborat rnlnw[address]ClevelandSeverance, [place] [phone] Absolute nRBC 1.10 <0.01 k/uL High 11-01-2019 [facility] (54086) Comment: Performed By: #### NTBNP, BM P, HAPTO, IRON, PTT, DDMER, FIBCT, FERR, STREV ####[facility] Laborat cuzvu[address] [facility]Cd[facility], [place] [phone] ANC(includeSEG+BAND) 5.94 k/uL Normal [address] [facility] (72697) Comment: Performed By: #### NTBNP, BM P, HAPTO, IRON, PTT, DDMER, FIBCT, FERR, STREV ####[facility] eogru037[address] AveCWilliam [place] [phone] Anisocytosis Ql (Bld) Present Normal 11-01-[address] [facility] (80705) Comment: Performed By: #### NTBNP, BM P, HAPTO, IRON, PTT, DDMER, FIBCT, FERR, STREV ####[facility] Laborat wlnni[address] AveClevelecu health north [facility], [place] [phone] Basophils/100 WBC (Bld) 0.0 % Normal [address] [facility] (56148) Comment: Performed By: #### NTBNP, BM P, HAPTO, IRON, PTT, DDMER, FIBCT, FERR, STREV ####[facility] eprko[address]CSim[place], [place] [phone] DTYPE Manual Diff Normal 11-01-2019 [facility] (27654) Comment: Performed By: #### NTBNP, BM P, HAPTO, IRON, PTT, DDMER, FIBCT, FERR, STREV ####[facility] Laborat mehky[address] AveClevelandTasha [place] [phone] Eosinophils (Bld) [#/Vol] 0.00 <0.46 k/uL Normal 10-[address] [facility] (05200) Comment: Performed By: #### NTBNP, BM P, HAPTO, IRON, PTT, DDMER, FIBCT, FERR, STREV ####[facility] Laborat ukiin[address] AveClevelandTasha [place] [phone] Eosinophils/100 WBC (Bld) 0.0 % Normal 10-[address] [facility] (35618) Comment: Performed By: #### NTBNP, BM P, HAPTO, IRON, PTT, DDMER, FIBCT, FERR, STREV ####[facility] eegqe57[address] AveCWilliam [place] [phone] Erythrocyte distribution 29.2 11.5-15.0 % High 10-31 [facility] width (RBC) [Ratio] [place] (08256) Comment: Performed By: #### NTBNP, BM P, HAPTO, IRON, PTT, DDMER, FIBCT, FERR, STREV ####[facility] skaqq[address] AveClevelCarol [place] [phone] Hematocrit (Bld) [Volume 22.6 39.0-51.0 % Low 10-[address] [facility] fraction] (48231) Comment: Performed By: #### NTBNP, BM P, HAPTO, IRON, PTT, DDMER, FIBCT, FERR, STREV ####[facility] Laborat dawti[address]CWilliam [place] [phone] Hemoglobin (Bld) 6.4 13.0-17.0 g/dL Low 11-01-2019 [facility] [Mass/Vol] [place] (36862) Comment: Performed By: #### NTBNP, BM P, HAPTO, IRON, PTT, DDMER, FIBCT, FERR, STREV ####[facility] Laborat wthts[address]CSimi [place], [place] [phone] Lymphocytes (Bld) [#/Vol] 1.87 1.00-4.00 k/uL Normal 10-[address] [facility] (73881) Comment: Performed By: #### NTBNP, BM P, HAPTO, IRON, PTT, DDMER, FIBCT, FERR, STREV ####[facility] hhxuj[address]CSim[place], [place] [phone] Lymphocytes/100 WBC (Bld) 22.0 % Normal 10-[address] [facility] (69630) Comment: Performed By: #### NTBNP, BM P, HAPTO, IRON, PTT, DDMER, FIBCT, FERR, STREV ####[facility], [place] [phone] MCH (RBC) [Entitic mass] 23.1 26.0-34.0 pG Low 10-[address] [facility] (83966) Comment: Performed By: #### NTBNP, BM P, HAPTO, IRON, PTT, DDMER, FIBCT, FERR, STREV ####[facility], [place] [phone] MCHC (RBC) [Mass/Vol] 28.3 30.5-36.0 g/dL Low 11-01-[address] [facility] (22806) Comment: Performed By: #### NTBNP, BM P, HAPTO, IRON, PTT, DDMER, FIBCT, FERR, STREV ####[facility] qqpmk[address]CSim[place], [place] [phone] MCV (RBC) [Entitic vol] 81.6 80.0-100.0 fL Normal 10-[address] [facility] (14233) Comment: Performed By: #### NTBNP, BM P, HAPTO, IRON, PTT, DDMER, FIBCT, FERR, STREV ####[facility] Laborat qhylh[address] AveClevelandTasha [place] [phone] Monocytes/100 WBC (Bld) 5.0 % Normal [address] [facility] (85346) Comment: Performed By: #### NTBNP, BM P, HAPTO, IRON, PTT, DDMER, FIBCT, FERR, STREV ####[facility] Laborat nledi[address]Cleveland, [place] [phone] Myelo% 3.0 % Normal 11-01-[address] [facility] (71212) Comment: Performed By: #### NTBNP, BM P, HAPTO, IRON, PTT, DDMER, FIBCT, FERR, STREV ####[facility] fdgog[address] AveClevelCarol [place] [phone] Neutrophils/100 WBC (Bld) 70.0 % Normal 10-[address] [facility] (72636) Comment: Result Comment: See Patholog ist Interpretation Performed By: #### NTBNP, BM P, HAPTO, IRON, PTT, DDMER, FIBCT, FERR, STREV ####[facility] pmzwc[address] AveCWilliam [place] [phone] NRBCs 13 0 /100 WBC High 11-01-[address] [facility] (47732) Comment: Performed By: #### NTBNP, BM P, HAPTO, IRON, PTT, DDMER, FIBCT, FERR, STREV ####[facility] tzlww6[address] AveCWilliam [place] [phone] Ovalocytes Few Normal 11-01-2019 [facility] (27438) Comment: Performed By: #### NTBNP, BM P, HAPTO, IRON, PTT, DDMER, FIBCT, FERR, STREV ####[facility] Laborat dshyf[address]CWilliam [place] [phone] Pathologist Interp SEE COMMENT Normal [address] [facility] (69635) Comment: Result Comment: Normocytic A nemia With Moderate Polychromasia Thrombocytopenia Performed By: #### NTBNP, BM P, HAPTO, IRON, PTT, DDMER, FIBCT, FERR, STREV ####[facility] Laborat bsshe[address]CSim[place], [place] [phone] Pathologist: Reviewed by Maria L Normal 10-31 [facility] MD Freddie PhD (18459) [place] (99541) Comment: Performed By: #### NTBNP, BM P, HAPTO, IRON, PTT, DDMER, FIBCT, FERR, STREV ####[facility] mfyno[address]357 [address] AveCSim[place], [place] [phone] Platelet mean <<DO NOT REPORT>> 9.0-12.7 Normal 11-01-19 20 [facility] volume (Bld) [place] (61347) [Entitic vol] Comment: Performed By: #### NTBNP, BM P, HAPTO, IRON, PTT, DDMER, FIBCT, FERR, STREV ####[facility] pfvec[address] AveCSim[place], [place] [phone] Platelets (Bld) [#/Vol] 42 150-400 k/uL Low [address] [facility] (92200) Comment: Result Comment: Result check ed and verified No clot detected. Performed By: #### NTBNP, BM P, HAPTO, IRON, PTT, DDMER, FIBCT, FERR, STREV ####[facility] yphiw[address] AveCSim[place], [place] [phone] Platelets (Bld) Platelet estimate Normal 2019 [facility] [#/Vol] decreased [place] (15854) Comment: Performed By: #### NTBNP, BM P, HAPTO, IRON, PTT, DDMER, FIBCT, FERR, STREV ####[facility] Laborat bynlj[address] AveCSim[place], [place] [phone] Polychromasia Moderate Normal 11-01-2019 [facility] (71019) Comment: Performed By: #### NTBNP, BM P, HAPTO, IRON, PTT, DDMER, FIBCT, FERR, STREV ####[facility] Laborat uqwtk[address] AveClevelValley Stream, [place] [phone] RBC (Bld) [#/Vol] 2.77 4.20-6.00 m/uL Low 11-01-2019 [facility] (79768) Comment: Performed By: #### NTBNP, BM P, HAPTO, IRON, PTT, DDMER, FIBCT, FERR, STREV ####[facility] sqcib79[address] AveCSim[place], [place] [phone] RBC Fragments Few Normal 11-01-2019 [facility] (36134) Comment: Performed By: #### NTBNP, BM P, HAPTO, IRON, PTT, DDMER, FIBCT, FERR, STREV ####[facility] fgtzv2803 [address] AveCSimi [place], [place] [phone] Spherocytes Few Normal 11-01-2019 [facility] (16878) Comment: Performed By: #### NTBNP, BM P, HAPTO, IRON, PTT, DDMER, FIBCT, FERR, STREV ####[facility] Laborat ifngd[address] AveCSim[place], [place] [phone] Target Cells Few Normal 11-01-2019 [facility] (39204) Comment: Performed By: #### NTBNP, BM P, HAPTO, IRON, PTT, DDMER, FIBCT, FERR, STREV ####[facility] qsqmj1984 [address] AveCSim[place], [place] [phone] WBC (Bld) [#/Vol] 8.48 3.70-11.00 k/uL Normal 11-01-[address] [facility] (80049) Comment: Performed By: #### NTBNP, BM P, HAPTO, IRON, PTT, DDMER, FIBCT, FERR, STREV ####[facility] Laborat vukbk[address] AveClevelValley Stream, [place] [phone] nt pro bnp on 10-31 PRO B Natr Peptide 890 <450 pg/mL High 11-01-[address] [facility] (73397) Comment: Performed By: #### NTBNP, BM P, HAPTO, IRON, PTT, DDMER, FIBCT, FERR, STREV ####[facility] Laborat jrpxv[address] AveCSimi [place], [place] [phone] iron and tibc on 01-11-19 Iron [Mass/Vol] 45 41-186 ug/dL Normal 11-01-2019 [facility] (02093) Comment: Performed By: #### NTBNP, BM P, HAPTO, IRON, PTT, DDMER, FIBCT, FERR, STREV ####[facility] Laborat fqdol36[address] AveCSimi [place], [place] [phone] TIBC 243 232-386 ug/dL Normal 11-01-[address] [facility] (29462) Comment: Performed By: #### NTBNP, BM P, HAPTO, IRON, PTT, DDMER, FIBCT, FERR, STREV ####[facility] Laborat kzdoj[address]CSim[place], [place] [phone] Transferrin Saturatn 19 15-57 % Normal [address] [facility] (76989) Comment: Performed By: #### NTBNP, BM P, HAPTO, IRON, PTT, DDMER, FIBCT, FERR, STREV ####[facility] Laborat zbpfx3425 [address] AveCSim[place], [place] [phone] haptoglobin on 2019 Haptoglobin 189 31-238 mg/dL Normal 11-01-2019 [facility] (11197) Comment: Performed By: #### NTBNP, BM P, HAPTO, IRON, PTT, DDMER, FIBCT, FERR, STREV ####[facility] rvubw7840 [address] AveCSim[place], [place] [phone] fibrinogen on 10-31 Fibrinogen 526 200-400 mg/dL High 11-01-2019 [facility] (93621) Comment: Result Comment: Result reche cked. Sample checked for a clot. Performed By: #### NTBNP, BM P, HAPTO, IRON, PTT, DDMER, FIBCT, FERR, STREV ####[facility]CSim[place], [place] [phone] ferritin on 2019-10 Ferritin [Mass/Vol] 62.5 30.3-565.7 ng/mL Normal [address] [facility] (94007) Comment: Performed By: #### NTBNP, BM P, HAPTO, IRON, PTT, DDMER, FIBCT, FERR, STREV ####[facility]CSimi [place], [place] [phone] d dimer on D dimer 840 <500 ng/mL FEU High 11-01-[address] [facility] (21998) Comment: Result Comment: 500 ng/mL FE U [...] HAPTO, IRON, PTT, DDMER, FIBCT, FERR, STREV ####[facility] Laborat [address] [place], [place] [phone] confirm blood type on 2019-11-01 ABO/RH(D) O POSITIVE Normal 11-01-2019 [facility] (28375) Comment: Performed By: #### CON[place]O ## ##[place] [phone] cbc on 2019-11-01 Absolute nRBC 0.84 <0.01 k/uL High 11-01-2019 [facility] (43906) Comment: Performed By: #### CBC ####C [place] [phone] Erythrocyte distribution 29.2 11.5-15.0 % High 10-31 [facility] width (RBC) [Ratio] [place] (34221) Comment: Performed By: #### CBC ####C [place] [phone] Hematocrit (Bld) [Volume 24.4 39.0-51.0 % Low 10-[address] [facility] fraction] (54938) Comment: Performed By: #### CBC ####C [place] [phone] Hemoglobin (Bld) 7.3 13.0-17.0 g/dL Low 11-01-2019 [facility] [Mass/Vol] [place] (39335) Comment: Performed By: #### CBC ####C [place] [phone] MCH (RBC) [Entitic mass] 24.3 26.0-34.0 pG Low 10-[address] [facility] (06018) Comment: Performed By: #### CBC ####C [address] [phone] MCHC (RBC) [Mass/Vol] 29.9 30.5-36.0 g/dL Low 11-01-[address] [facility] (38897) Comment: Performed By: #### CBC ####C [address] [id number] [phone] MCV (RBC) [Entitic vol] 81.1 80.0-100.0 fL Normal 10-[address] [facility] (88657) Comment: Performed By: #### CBC ####C [address] [phone] Platelet mean <<DO NOT REPORT>> 9.0-12.7 Normal 11-01-19 [facility] volume (Bld) [place] (17897) [Entitic vol] Comment: Performed By: #### CBC ####C [address] [phone] Platelets (Bld) [#/Vol] 42 150-400 k/uL Low [address] [facility] (09002) Comment: Result Comment: Result check ed and verified No clot detected. Performed By: #### CBC ####C [address] [phone] RBC (Bld) [#/Vol] 3.01 4.20-6.00 m/uL Low 11-01-2019 [facility] (93114) Comment: Performed By: #### CBC ####C [address] [phone] WBC (Bld) [#/Vol] 9.13 3.70-11.00 k/uL Normal 11-01-[address] [facility] (49091) Comment: Performed By: #### CBC ####C [place] [address] [place], [place] [phone] basic metabolic panl on 2019-11-01 Anion gap [Moles/Vol] 12 9-18 mmol/L Normal 11-01-[address] [facility] (80392) Comment: Performed By: #### NTBNP, BM P, HAPTO, IRON, PTT, DDMER, FIBCT, FERR, STREV ####[facility], [place] [phone] Calcium [Mass/Vol] 9.5 8.5-10.2 mg/dL Normal 11-01-[address] [facility] (68958) Comment: Performed By: #### NTBNP, BM P, HAPTO, IRON, PTT, DDMER, FIBCT, FERR, STREV ####[facility] [place], [place] [phone] Chloride [Moles/Vol] 105 97-105 mmol/L Normal [facility] (68146) Comment: Performed By: #### NTBNP, BM P, HAPTO, IRON, PTT, DDMER, FIBCT, FERR, STREV ####[facility] [place], [place] [phone] CO2 [Moles/Vol] 29 22-30 mmol/L Normal 11-01-2019 [facility] (64918) Comment: Performed By: #### NTBNP, BM P, HAPTO, IRON, PTT, DDMER, FIBCT, FERR, STREV ####[facility] sblxe0223 [address] AvW[place], [place] [phone] Creatinine [Mass/Vol] 1.40 0.73-1.22 mg/dL High 11-01-[address] [facility] (32512) Comment: Performed By: #### NTBNP, BM P, HAPTO, IRON, PTT, DDMER, FIBCT, FERR, STREV ####[facility] [id number] [place], [place] [phone] eGFR- Amer. 59 Normal 11-01-[address] [facility] ([id number]) Comment: Performed By: #### NTBNP, BM P, HAPTO, IRON, PTT, DDMER, FIBCT, FERR, STREV ####[facility] [id number] [place], [place] [phone] GFR/1.73 sq M predicted among 49 . Normal 11-01-[address] [facility] non-blacks MDRD (S/P/Bld) [Vol (02006) rate/Area] Comment: Result Comment: eGFR (Estima alejandrina [...] HAPTO, IRON, PTT, DDMER, FIBCT, FERR, STREV ####[facility] [id number] [place], [place] [phone] Glucose [Mass/Vol] 149 74-99 mg/dL High 11-01-[address] [facility] ([id number]) Comment: Result Comment: The [place] [employer] (ADA) provides guidance for cutoff [...] for diagnosis of diabetes. Reference: Standards of [facility] Care in Diabetes 2016, [place] [employer]. Diabetes Care. 2016.39(Suppl 1). Performed By: #### NTBNP, BM P, HAPTO, IRON, PTT, DDMER, FIBCT, FERR, STREV ####[facility] [id number], [place] [phone] Potassium [Moles/Vol] 3.4 3.7-5.1 mmol/L Low 11-01-[address] [facility] (89737) Comment: Performed By: #### NTBNP, BM P, HAPTO, IRON, PTT, DDMER, FIBCT, FERR, STREV ####[facility] [id number] [place], [place] [phone] Sodium [Moles/Vol] 146 136-144 mmol/L High 11-01-[address] [facility] (62754) Comment: Performed By: #### NTBNP, BM P, HAPTO, IRON, PTT, DDMER, FIBCT, FERR, STREV ####[facility] [id number], [place] [phone] Urea nitrogen [Mass/Vol] 39 9-24 mg/dL High 10-[address] [facility] (20600) Comment: Performed By: #### NTBNP, BM P, HAPTO, IRON, PTT, DDMER, FIBCT, FERR, STREV ####[facility] [id number], [place] [phone] aptt on 2019-11-01 aPTT Coag (Bld) [Time] 26.2 23.0-32.4 sec Normal [address] [facility] (62006) Comment: Result Comment: Unfractionat ed Heparin Therapeutic [...] laboratory APTT reagent in use throughout the [facility]. Performed By: #### NTBNP, BM P, HAPTO, IRON, PTT, DDMER, FIBCT, FERR, STREV ####[facility] Laborat [id number] [place], [place] [phone] xr chest 1v frontal port on 2019-10-31 XR CHEST 1V * * *Final Report* * * Normal 10-30 [facility] FRONTAL PORT DATE OF EXAM: Oct 31 2019 7:58PM [facility] ([id number]) YENY 5376 - XR CHEST 1V FRONTAL [...] silho uette. Other: . IMPRESSION: See result. Mask Design Engineer: PSCB Transcribe Date/Time: Oct 31 2019 10:04P Dictated by : TITA GARZON MD This examination was interpreted and the report reviewed and electronically signed by: TITA GARZON MD on Oct 31 2019 10:06PM EST [id number] staph aureus pcr on 2019-10-31 MRSA PCR Negative for MRSA by PCR. Normal 10-[address] [facility] (75023) Comment: Performed By: #### SAPCR ### #[place] [address], [place] [phone] S aureus Spec Source Nasal Normal [address] [facility] (92170) Comment: Performed By: #### SAPCR ### #[place] [address], [place] [phone] Staph aureus PCR Negative for Normal 10-31-2019 [facility] Staphylococcus aureus by [facility] (08934) PCR. Comment: Performed By: #### SAPCR ### #[place] [address], [place] [phone]- [phone] s pneumo ag detect on 2019-10-31 S pneumo Ag Sp. Request/Comment: - Specimen received in sterile co ntainer. Normal 10-31-2019 [facility] Detect Test Result - Negative for S .pneumoniae antigen. Presumptive negative for pneumococcal pneumonia, suggesting no current or recent pneumococcal infection. Infection due to S.pneumoniae cannot be ruled ou [facility] (73324) t since the antigen present in the sample may be below the detection limit of the test. Comment: Performed By: #### SPNAG ### [address] [phone] resp panel by pcr o n 2019-10-31 Adenovirus Negative Negative Normal 10-31-2019 [facility] (40967) Comment: Performed By: #### RPPCR ### #[place] [address], [place] [phone] C. pneumoniae Negative Negative Normal 10-31-2019 [facility] (75052) Comment: Performed By: #### RPPCR ### [address], [place] [phone] Coronavirus 229E Negative Negative Normal 10-31-2019 [facility] (04215) Comment: Performed By: #### RPPCR ### [address], [place] [phone] Coronavirus HKU1 Negative Negative Normal 10-31-2019 [facility] (91335) Comment: Performed By: #### RPPCR ### #[place] [address] [place] [phone] Coronavirus NL63 Negative Negative Normal 10-31-2019 [facility] (18880) Comment: Performed By: #### RPPCR ### #[place] [address] [place] [phone] Coronavirus OC43 Negative Negative Normal 10-31-2019 [facility] (95404) Comment: Performed By: #### RPPCR ### #[place] [address] [place] [phone] H Metapneumovirus Negative Negative Normal 10-31-2019 [facility] (95243) Comment: Performed By: #### RPPCR ### #[place] [address] [place] [phone] Human Bocavirus Negative Negative Normal 10-31-2019 [facility] (84341) Comment: Performed By: #### RPPCR ### #[place] [address] [place] [phone] Influenza A Virus Negative Negative Normal 10-31-2019 [facility] (02715) Comment: Performed By: #### RPPCR ### #[place] [address] [place] [phone] Influenza B Virus Negative Negative Normal 10-31-2019 [facility] (25259) Comment: Performed By: #### RPPCR ### #[place] [address] [place] [phone] M. pneumoniae Negative Negative Normal 10-31-2019 [facility] (58248) Comment: Performed By: #### RPPCR ### #[place] [address], [place] [phone] Parainfluenza 1 Negative Negative Normal 10-31-2019 [facility] (21758) Comment: Performed By: #### RPPCR ### #[place] [address], [place] [phone]- [phone] Parainfluenza 2 Negative Negative Normal 10-31-2019 [facility] (37102) Comment: Performed By: #### RPPCR ### #[place] [address] [phone]- [phone] Parainfluenza 3 Negative Negative Normal 10-31-2019 [facility] (29014) Comment: Performed By: #### RPPCR ### #[place] [address] [place] [phone]- [phone] Parainfluenza 4 Negative Negative Normal 10-31-2019 [facility] (49370) Comment: Performed By: #### RPPCR ### #[place] [address] [place] [phone] Resp Panel Source Nasopharyngeal Swab Normal [facility] (08964) Comment: Performed By: #### RPPCR ### #[place] [address] [place] [phone]- [phone] Resp Syncytial Vir A Negative Negative Normal [address] [facility] (68306) Comment: Performed By: #### RPPCR ### #[place] [address] [place] [phone]- [phone] Resp Syncytial Vir B Negative Negative Normal [address] [facility] (53553) Comment: Performed By: #### RPPCR ### #[place] [address] [place] [phone]- [phone] Rhino/Enterovirus Negative Negative Normal 10-31-2019 [facility] (14491) Comment: Performed By: #### RPPCR ### #[place] [address], [place] [phone]- [phone] protime on PT Coag (PPP) [Time] 1.0 0.9-1.3 s Normal [address] [facility] (02233) Comment: Result Comment: Vitamin K An tagonist (VKA) Therapeutic Range: INR 2 to 3 (Target INR of 2.5) Note: For patients treated w ith VKA drugs, such as warfarin, the [place] [employer] 2012 Guideline recommends a therapeutic INR range of 2 to 3 (target INR of 2.5). This recommendation includes high-risk patients with antiphospholipid syndrome with previous arterial or venous thromboembolism, current-generation mechanical or bioprosthetic aortic heart valve replacement. Note: Patients with music box mechanic al aortic valve replacement and additional risk factors for thromboembolic events (atrial fibrillation, previous thromboembolism, LV dysfunction, hypercoagulable conditions) or an older generation mecha nical AVR (i.e., ball in-Cage) or any mechanical MVR should have a INR therapeutic range of 2.5 to 3.5 (target INR of 3). Vitaliy GH, et al. Chest 2012 , 141:7S-47S Janet RA, et al. [facility] 20 , 70: 252-289 Performed By: #### PT, CMP, CBCDIF ####[place] [id number] [place], [place] 44 [phone] PT Coag (PPP) [Time] 10.3 9.7-13.0 sec Normal [address] [facility] (07307) Comment: Performed By: #### PT, CMP, CBCDIF ####[facility] [address] [place], [place] [address] [phone] procalcitonin on 31-10-18 Procalcitonin 0.36 <0.09 ng/mL High 10-31-2019 [facility] (76127) Comment: Result Comment: For a guided interpretation of test results, please visit the Change in Procalcitonin Calculator, [email or web address]. Performed By: #### PROCAL ## ##[facility] [place], [place] [phone]- [phone] nursing prog on NURSING PROG HNO ID: [id number] Normal 10-31-19 [facility] Author: Pati JasmineRn) JUNIE Wakefield [facility] (61288) Service: ? Author Type: Registered Nurse Type: Nursing Progress Note Filed: 10/31/2019 5:42 PM Note Text: Admission/Transfer Note PATIENT NAME: Tiana Martínez Patient transferred from [facility] via bed in stable condition. Actions taken: Patient oriented to room, call light function and Patient rights. Skin assessed with Della LOZOYA. This note was completed by: Pati Wakefield RN NURSING PROG HNO ID: [id number] Normal 10-31-19 [facility] Author: Olimpia JasmineRn) JUNIE Calhoun [facility] (32201) Service: ? Author Type: Registered Nurse Type: Nursing Progress Note Filed: 10/31/2019 5:41 PM Note Text: Nursing Progress Note Tiana Martínez [id number] 1525 COVID test came back negative, service notified Dr.Glav ramos, admitting notified for transfer. 1550 report called to [facility] for transfer to bed 08. 1610 patient upset about no visitor policy, ombudsmen pamphl et given to patient. 1620 patient off floor with transport to [facility]. This note was completed by: Olimpia Calhoun RN legionella urine ag on 2019-10-31 Legionella Urine Ag Negative Negative Normal 10-31-[address] [facility] (00527) Comment: Result Comment: Negative for L. pneumophila serogroup 1 antigen in urine, suggesting no recent or current infection. Legionnai res disease cannot be ruled out since ot her serogroups and species may also cause d isease. Performed By: #### LEGUAG ## ##[facility] [address] [place], [place] [phone]- [phone] hosp on 2019-10-31 HOSP Patient:Tiana Martínez Normal 10-31-19 [facility] MRN: [facility] Height:5' 9(1.753 m) [facility] Weight:202 lb (91.627 kg) (97329) Outpatient Medications as of 11/05/19: atorvastatin (LIPITOR) [...] 79 year o ld male transferred from [facility] where he presented with chief complaint of dyspnea. Patient reports that several weeks ago he presented to [facility] emergency department and what day was diagnosed [...] Zithromax. The patient was transferred to the [facility] at the suggestion of his outpatient [...] of skin, thyroid cancer Upon arrival to [facility], the pat ieradha was hemodynamically stable w/ [...] Complained of the restrictive visitation rules at [facility]. 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 The patient remains to be seen by and discussed with oncology staff, at which time the final assessme nt and recommendations may be edited. Olimpia Calhoun, RN, RN 10/31/2019 5:41 PM Addendum Nursing Progress Note Tiana Martínez [id number] 1525 COVID test came back negative, service notified Dr.Glav ramos, admitting notified for transfer. 1550 report called to [facility] for transfer to bed 08. 1610 patient upset about no visitor policy, ombudsmen pamphl et given to patient. 1620 patient off floor with transport to [facility]. This note was completed by: Olimpia Calhoun RN Previous Version Pati Wakefield, RN, RN 10/31/2019 5:42 PM Sig lee Admission/Transfer Note PATIENT NAME: Tiana Martínez Patient transferred from [facility] via bed in stable condition. Actions [...] negative. Shaheen Rosenberg MD MA Associate Staff [facility] [place] November 02, 2019 Shaheen Rosenberg MD 11/02/2019 [...] pending 10/31/19 1215 vte pharmacologic prophylaxis contraindicated (mt,oh) 10/31/19 1215 pneumatic compression stockings (mt,oh) 10/31/19 1215 activity - mobilize patient (mt,wv) SIGNATURE: Skylar Seay MD PHD PGY-1 PATIENT NAME: Tiana medina DATE: 11/02/2019 TIME: 10:58 AM PAGER: [phone] Note: These recommendations are not final until staffed by max harris See my note from earlier today. 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 4257-1813 - COPD (chronic obstructive pulmonary disease) (HCC) - CVA (cerebral vascular accident) (HCC) 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 - Diverticulosis of colon (without mention of hemorrhage) - DM (diabetes mellitus) ([facility]) - Hemorrhage of gastrointestinal tract, [...] November 03, 2019 TIME: 2:02 AM PAGER: [phone] Rei Vidal, Tech 11/03/2019 9:01 AM Signed [...] that several weeks ago he presented to [facility] emergency department and what day was diagnosed with a new hilar left upper lobe mass that had rapidly grown since his last imaging in [facility]. He started experiencing shortness of breath [...] 2 L of oxygen. [facility] Rocephin and Zithromax. 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 Patient not seen [...] (ml) 50 850 1360 ? 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 State d Goals: To have reduction in [...] Current Advance Directive: Health Care Power of Cementer Helper In Chart: No Concrete Pavement Installer Attempted to Assist with AD Completion: Yes Action: Other: See Comment(Son states he is POA for both [facility] care and finances) Health LiteracyHow [...] Patient Currently Receive Any Community Services or [facility] Care?: None Equipment Prior to Admission: None SOCIAL: Living Arrangements: Home Lives With: Alone Financial Resources: RetiredPrimary Contact: Extended Emerge ncy Contact Information Primary Emergency Contact: Tanya CaponeTiana Mobile Relation: Son Supportive Patient Contact:: Yes Contact Resources: Family Family Name/Phone: Tiana BlockTyw-[phone] (M) Social Needs Food insecurity Worry: Not [...] Mostly I feel financially burdened by my lof-js-tbffej expens es for my prescription medication:: 0 [...] (no t on file) Tiana Martínez at [phone] (M) to introduce myself and to explain my role a s a Concrete Pavement Installer. Patient had been independent with no home care servi dhiraj or DME. He was driving his car two weeks ago. He lives alone. He was not us ing home oxygen, in the hospital he is requiring 2-3 liters. Son states [facility]. It is close to his fathers home. CM will follow f or dispo plan. SIGNATURE: Saud Pop RN PATIENT NAME: Tiana Martínez DATE: November 03, 2019 TIME: 2:45 PM PAGER/CONTACT #: [phone] Trina Blount RN, RN 11/03/2019 5:11 PM Signed This RN instructed Katie Jordan N on pt having bronch tomorrow 11/04/2019. Pt not on blood thinner. Verbalized understanding of said instructions . Clau Soriano RN, RN 11/04/2019 2:17 AM Signed Nursing Progress Note Patient Name: Tiana Martínez Patient Location: [place] [address] Daily Note: 2100 2 units platelets administered per order. No s/sx transfusion reaction. This note was completed by: Clau Soriano, RN Matthew Puri MD 11/04/2019 8:28 PM Addendum Solid Tumor Oncology 1 Progress Note Progress Note PATIENT NAME: Taina Martínze PRIMARY SERVICE: STO1 ADMISSION DAY 10/31/2019 HOSPITAL [...] 50 850 1360 1668 ? Output (ml) 504 900 7234 1275 225 Net (ml) -902 300 -1440 [...] pending 10/31/19 1215 vte pharmacologic prophylaxis contraindicated (mt,wv) 10/31/19 1215 pneumatic compression stockings (mt,wv) 10/31/19 1215 activity - mobilize patient ([place], [place]) SIGNATURE: Skylar Seay MD PHD PGY-1 PATIENT NAME: Tiana medina DATE: 11/04/2019 TIME: 7:58 AM PAGER: [phone] Note: These recommendations are not final until staffed by max harris HEMATOLOGY/MEDICAL ONCOLOGY/[facility] BRAIN TUMOR CENTER STA FF: [...] [place] [address] Previous Version Jay Kelly, OLE 11/04/2019 2:05 PM S igned CIRCUITS ENGINEER PROGRESS NOTE Name: Tiana Martínez Date of [...] was provided to any brunner and his automation machine operator's office over the years. María e offered [...] and/or physician, and remain available to patient's mather hospital. Signature: JARETH Stanley [facility] Sports Specialist Pager: [phone] Date: November 04, 2019 Time: 10:58 AM Huy Brown, PT, PT 11/04/2019 1:20 PM Signed PHYSICAL THERAPY MISSED VISIT SERVICE DATE: 11/04/2019 SERVICE TIME: 1320 to 1320 ROOM: [place] [address] Attempted Evaluation. Patient not seen d ue [...] 04, 2019 TIME: 4:23 PM PAGER/CONTACT #: [phone] Lizandro Cruz MD 11/04/2019 5:05 PM Signed [...] Note Patient Name: Tiana Martínez [id number] Daily Note: 3837-2770 Tylenol given for pain 10 to R hip. Heart/lung sounds WNL. Irregular HR on ascultation. Pt on tel emetry, monitor reviewed, patient in Afib HR 80-100. (99640) updated. 0500 MASD noted to scrotum, Aquaphor cream delivered from pharmacy, pt self applied. Pt noted wheezing/SOB, sating w ell on 2L NC. RT at bedside for PRN tx and scheduled mucomyst. AM labs drawn by medical lab director. This note was completed by: Katina Holland RN Previous Version history physical on 2019-10-31 HISTORY HNO ID: [id number] Normal 10-31-2019 [facility] PHYSICAL Author: Skylar Sharif (Gaviota Seay MD Clinic Service: Oncology Cl maricel Author Type: Resident ([id number]) Type: HANDP Filed: 10/31/2019 10:05 PM Note Text: Solid Tumor Oncology 1 History and Physical PATIENT NAME: Tiana Martínez PRIMARY SERVICE: ADMISSION DAY 10/31/2019 HOSPITAL DAY: 0 CODE STATUS: Code Status: Not on file History of Presenting Illness Tiana Martínez is a 79 year old male transferred from [facility] he presented with chief complaint of dyspnea. Patient reports that several weeks ago he presented to [facility] emergency department and what day was diagnosed [...] Zithromax. The patient was [facility], Dr. Sam Sanchez, [...] of skin, thyroid cancer Upon arrival to [facility], the patient was hemodynamically stable w/ active complaints of SOB. His T was 36.8 ?C (98.2 ?F), BP was 139/75 and his pulse was 103, RR was 18 and oxygen saturation is 99% on 2L O2. Denies fever, chil ls, palpitations, lightheadedness/dizziness, chest pain, abdomin al pain, n/v/d, pain or discomfort with urination. Endorses SOB. Comp lained of the restrictive visitation rules at [facility]. 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 6655-1064 - COPD (chronic obstructive pulmonary disease) ([facility]) - CVA (cerebral vascular accident) ([facility]) 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 - Diverticulosis of colon (without mention of hemorrhage) - DM (diabetes mellitus) ([facility]) - Hemorrhage of gastrointestinal tract, unspecified - Hypercholesteremia - Lung cancer (HCC) - Sebaceous cyst knee - Sebaceous cyst arm pit - Sebaceous cyst back PAST SURGICAL HISTORY Procedure Laterality Date - COLONOSCOP W/ OR W/O BRSH SPEC 06/14/07 [facility] inpt FAMILY HISTORY Problem Relation Age of [...] medina DATE: 10/31/2019 TIME: 9:36 PM PAGER: [phone] This is a preliminary note which reflects the assessment of the authoring medicine resident only. The patient remains to be seen by an d discussed with oncology staff, at which time the final assessment and recommendations may be edited. gasv + all on 10-30 Base Excess 5 mmol/L Normal 10-31-2019 [facility] ([address]201) Comment: Performed By: #### VALLBG ## ##[facility] [place], [place] [phone]- [phone] Blood Gas Comm, Gerson . Normal 10-31-[address] [facility] (02370) Comment: Performed By: #### VALLBG ## ##[place] [address], [place] [phone]- [phone] Calcium [Mass/Vol] 1.33 1.08-1.30 mmol/L High 10-31-[address] [facility] (32347) Comment: Performed By: #### VALLBG ## ##[place] [address], [place] [phone] Carboxyhemoglobin,Gerson 2.1 <2.1 % High 10-31-[address] [facility] (40584) Comment: Performed By: #### VALLBG ## ##[place] [address] [place], [place] [phone] CO2 [Moles/Vol] 31 25-29 mmol/L High 10-31-2019 [facility] (13464) Comment: Performed By: #### VALLBG ## ##[place] [address] [place], [place] [phone]- [phone] Glucose [Mass/Vol] 151 60-105 mg/dL High 10-31-[address] [facility] (76209) Comment: Performed By: #### VALLBG ## ##[place] [address] [place], [place] [phone] HCO3 (Bld) [Moles/Vol] 30 24-28 mmol/L High [address] [facility] (57628) Comment: Performed By: #### VALLBG ## ##[place] [address] [place], [place] [phone]- [phone] Hematocrit (Bld) [Volume 23.5 39.0-51.0 % Low 10-[address] [facility] fraction] (47165) Comment: Performed By: #### VALLBG ## ##[place] [address], [place] [phone] Hemoglobin (Bld) 7.5 13.0-17.0 g/dL Low 10-31-2019 [facility] [Mass/Vol] [facility] (40694) Comment: Performed By: #### VALLBG ## ##[place] [address] hospitalandS[facility], [place] [phone]- [phone] Lactate [Moles/Vol] 2.1 0.5-2.2 mmol/L Normal 10-31-[address] [facility] (29974) Comment: Performed By: #### VALLBG ## ##[place] [address] [place], [place] [phone]- [phone] Methemoglobin 0.8 <1.6 % Normal 10-31-2019 [facility] (70705) Comment: Performed By: #### VALLBG ## ##[place] [address] [place], [place] [phone]- [phone] O2 Administered 24% Normal 10-31-2019 [facility] (21411) Comment: Performed By: #### VALLBG ## ##[place] [address] [place], [place] [phone] Oxygen (Bld) [Partial 38 35-45 mm Hg Normal 10-31-[address] [facility] pressure] (37040) Comment: Performed By: #### VALLBG ## ##[place] [address], [place] [phone] Oxyhemoglobin, Gerson. 60 60-85 % Normal 10-31-[address] [facility] (34847) Comment: Performed By: #### VALLBG ## ##[place] [address], [place] [phone] pCO2 49 42-55 mm Hg Normal 10-31-[address] [facility] (32211) Comment: Performed By: #### VALLBG ## ##[place] [address] [place], [place] [phone] pCO2, Temp Correct 49 42-55 mm Hg Normal 10-31-[address] [facility] (21253) Comment: Performed By: #### VALLBG ## ##[place] [address] [place], [place] [phone] pH (Bld) 7.40 7.32-7.42 [pH] Normal 10-31-[address] [facility] (82460) Comment: Performed By: #### VALLBG ## ##[place] [address] [place], [place] [phone] pH, Temp Corrected 7.40 7.32-7.42 Normal 10-31-[address] [facility] (74922) Comment: Performed By: #### VALLBG ## ##[address] [place], [place] [phone] pO2, Temp Corrected 38 35-45 mm Hg Normal 10-31-[address] [facility] (28033) Comment: Performed By: #### VALLBG ## ##[address] [phone] Potassium [Moles/Vol] 3.5 3.5-5.0 mmol/L Normal 10-31-[address] [facility] (64306) Comment: Performed By: #### VALLBG ## ##[address] [phone]- [phone] Sodium [Moles/Vol] 148 136-144 mmol/L High 10-31-[address] [facility] (38410) Comment: Performed By: #### VALLBG ## ##[place] [address] [address], [place] [phone] expedited covid19 o n 2019-10-31 COVID 19 Result Negative for Negative for Normal 10-31-19 [facility] HEALTHCARE REPRESENTATIVE COVID19 (SARS COVID19 (SARS Cl maricel (47315) CoV2) by PCR. CoV2) by PCR. Comment: Result Comment: This test hoang s been authorized by FDA under an Emergency Use Authorization (EUA). Performed By: #### EXCOVD ## ##[facility] [address] [place], [place] [phone] COVID 19 Source HEALTHCARE REPRESENTATIVE Nasopharyngeal Swab Normal 0 10-31-[address] [facility] (66831) Comment: Performed By: #### EXCOVD ## ##[facility] [address] [place], [place] [phone] ecg complete on ECG COMPLETE NAME : TIANA MARTÍNEZ Normal 10-31-19 [facility] PID : [id number] Bladimir evans ([id number]) : 1940 Gender : Male Race : ORD : [id number] Procedure Date : Oct 31 2019 13:04:31 Edit Date : Nov 03 2019 14:12:18 Diagnosis:SINUS RHYTHM WITH PREMATURE ATRIAL COMPLEXES OTHERWISE NORMAL ECG Confirmed by MD SCRUGGS HEBA ([id number]) on 11/03/2019 2:12:17 P M Ventricular Rate : 91 BPM Atrial Rate : 91 BPM P-R Interval : 150 ms QRS Duration : 86 ms Q-T Interval : 356 ms QTC Calculation(Bazett) : 437 ms P [place] : 59 degrees R [place] : 53 degrees [place] : 63 degrees Test Reason : Arrhythmia Location : 53 : H50 22 Overread By : MD SCRUGGS HEBA Edited By : MD SCRUGGS HEBA Referred By : RADU JACK Acquired by : ERIKA DIAZ ct-cta chest w/wo contrast import on 2019-10-31 CT-CTA Chest Images were obtained outside of [facility] Normal 10-31-2019 [facility] W/WO Contrast [id number] [place] (69160) IMPORT ct-cta chest w/wo contrast - overread on 2019-10-31 CT-CTA Chest * * *Final Report* * * Normal 10-12 [facility] W/WO Contrast - * * * SEE BOTTOM OF REPORT FOR ADDENDED TEXT * * * [place] OVERREAD DATE OF EXAM: Oct 31 2019 12:00AM (07718) OUT 0002 - CT OUTSIDE CD DICOM IMPORT -NBNR / [id number] PROCEDURE REASON: Tumor Board Discussion * * [...] a pack for 50 years) transferred from [facility] where he presented?with chief complaint of dyspnea [...] 5.7 x 3.4 cm. Transferred to the [facility] at the suggestion of his outpatient oncologist, [...] CT dated 12/24 . RESULT: Limitations: None. Kindergarten Tutor (topogram) images: Subtotal left upper lobe consolidat [...] be metastatic. Attention on follow-up r ecommended. Mask Design Engineer: SCOOBY Transcribe Date/Time: Nov 03 2019 9:55A Dictated by : NIMO WARREN MD This examination was interpreted and the report reviewed and electronically signed by: NIMO WARREN MD on Nov 03 2019 9:43AM EST This document has been addended by: NIMO WARREN MD on Nov 03 2019 9:57AM EST [id number] comp metabolic panel on 2019-10-31 Albumin [Mass/Vol] 3.0 3.9-4.9 g/dL Low 10-31-[address] [facility] (46421) Comment: Performed By: #### PT, CMP, CBCDIF ####[place] [address] [address] [address] ALP [Catalytic activity/Vol] 108 38-113 U/L Normal 0 10-31-[address] [facility] (14080) Comment: Performed By: #### PT, CMP, CBCDIF ####[place] [address] ALT [Catalytic activity/Vol] 56 10-54 U/L High 0 10-31-[address] [facility] (21405) Comment: Performed By: #### PT, CMP, CBCDIF ####[place] [address] Anion gap [Moles/Vol] 11 9-18 mmol/L Normal 10-31-[address] [facility] (86655) Comment: Performed By: #### PT, CMP, CBCDIF ####[place] [address] AST [Catalytic activity/Vol] 141 14-40 U/L High 0 10-31-[address] [facility] (82618) Comment: Performed By: #### PT, CMP, CBCDIF ####[place] [address] Bilirubin [Mass/Vol] 0.4 0.2-1.3 mg/dL Normal [address] [facility] (13155) Comment: Performed By: #### PT, CMP, CBCDIF ####[place] [address] Calcium [Mass/Vol] 9.4 8.5-10.2 mg/dL Normal 10-31-[address] [facility] (51314) Comment: Performed By: #### PT, CMP, CBCDIF ####[place] [address] Chloride [Moles/Vol] 107 97-105 mmol/L High [address] [facility] (14456) Comment: Performed By: #### PT, CMP, CBCDIF ####[facility] [address]CJosh[address] [place] [address] [phone] CO2 [Moles/Vol] 28 22-30 mmol/L Normal 10-31-2019 [facility] (03840) Comment: Performed By: #### PT, CMP, CBCDIF ####[facility] [address]CJosh[address] [place] [address] [phone] Creatinine [Mass/Vol] 1.18 0.73-1.22 mg/dL Normal 10-31-[address] [facility] (44581) Comment: Performed By: #### PT, CMP, CBCDIF ####[facility] [address]CJosh[address] [place] [address] [phone] eGFR- Amer. >60 Normal 10-31-[address] [facility] (59455) Comment: Performed By: #### PT, CMP, CBCDIF ####[facility] [address]CJosh[address] [place] [address] [phone] GFR/1.73 sq M predicted among 59 . Normal 10-31-[address] [facility] non-blacks MDRD (S/P/Bld) [Vol (22546) rate/Area] Comment: Result Comment: eGFR (Estima alejandrina [...] GFR. Performed By: #### PT, CMP, CBCDIF ####[facility] [address]CJosh[place] [address] [phone] Glucose [Mass/Vol] 145 74-99 mg/dL High 10-31-[address] [facility] (94621) Comment: Result Comment: The [place] Diabetes Association (ADA) provides guidance for cutoff [...] for diagnosis of diabetes. Reference: Standards of [facility] Care in Diabetes 2016, [place] Diabetes Association. Diabetes Care. 2016.39(Suppl 1). Performed By: #### PT CMP, CBCDIF ####[place] [id number] [place] [address] [phone] Potassium [Moles/Vol] 3.4 3.7-5.1 mmol/L Low 10-31-[address] [facility] (00747) Comment: Performed By: #### PT CMP, CBCDIF ####[place] [id number] [place] [address] [phone] Protein [Mass/Vol] 5.5 6.3-8.0 g/dL Low 10-31-[address] [facility] (83175) Comment: Performed By: #### PT, CMP, CBCDIF ####[facility] [address] [place] [address] [phone] Sodium [Moles/Vol] 146 136-144 mmol/L High 10-31-[address] [facility] (61835) Comment: Performed By: #### PT, CMP, CBCDIF ####[facility] [place] [address] [phone] Urea nitrogen [Mass/Vol] 41 9-24 mg/dL High 10-[address] [facility] (59576) Comment: Performed By: #### PT, CMP, CBCDIF ####[place] [address] [address] [phone] cbc and differential on 2019-10-31 Abs Baso 0.00 <0.11 k/uL Normal 10-31-[address] [facility] (81891) Comment: Performed By: #### PT, CMP, CBCDIF ####[place] [address] [place] [address] [phone] Abs Polk 0.37 <0.87 k/uL Normal 10-31-[address] [facility] (25792) Comment: Performed By: #### PT, CMP, CBCDIF ####[place] [address] [place] [address] [phone] Abs Neut 6.69 1.45-7.50 k/uL Normal 10-31-[address] [facility] (65992) Comment: Performed By: #### PT, CMP, CBCDIF ####[place] [address] [place] [address] [phone] Absolute nRBC 1.10 <0.01 k/uL High 10-31-2019 [facility] (90074) Comment: Performed By: #### PT, CMP, CBCDIF ####[place] [address] [address] [phone] ANC(includeSEG+BAND) 6.69 k/uL Normal [address] [facility] (09233) Comment: Performed By: #### PT, CMP, CBCDIF ####[place] [address] [place] [address] [phone] Anisocytosis Ql (Bld) Present Normal 10-31-[address] [facility] (25581) Comment: Performed By: #### PT, CMP, CBCDIF ####[place] [address] [place] [address] [phone] Basophils/100 WBC (Bld) 0.0 % Normal [address] [facility] (49655) Comment: Performed By: #### PT, CMP, CBCDIF ####[place] [address] [place] [address] [phone] DTYPE Manual Diff Normal 10-31-2019 [facility] (20505) Comment: Performed By: #### PT, CMP, CBCDIF ####[place] [address] [place] [address] [phone] Eosinophils (Bld) [#/Vol] 0.09 <0.46 k/uL Normal 10-[address] [facility] (05220) Comment: Performed By: #### PT, CMP, CBCDIF ####[place] [address] [place] [address] [phone] Eosinophils/100 WBC (Bld) 1.0 % Normal 10-[address] [facility] (68400) Comment: Performed By: #### PT, CMP, CBCDIF ####[address] [place] [address] Erythrocyte distribution 29.2 11.5-15.0 % High 10-30 [facility] width (RBC) [Ratio] [place] (99461) Comment: Performed By: #### PT, CMP, CBCDIF ####[address] [place] [address] Hematocrit (Bld) [Volume 25.4 39.0-51.0 % Low 10-[address] [facility] fraction] (27160) Comment: Performed By: #### PT, CMP, CBCDIF ####[place] [address] [place] [address] Hemoglobin (Bld) 7.2 13.0-17.0 g/dL Low 10-31-2019 [facility] [Mass/Vol] [place] (44114) Comment: Performed By: #### PT, CMP, CBCDIF ####[place] [address] [place] [address] [phone] Lymphocytes (Bld) [#/Vol] 1.74 1.00-4.00 k/uL Normal 10-[address] [facility] (45141) Comment: Performed By: #### PT, CMP, CBCDIF ####[place] [address] [phone] Lymphocytes/100 WBC (Bld) 19.0 % Normal 10-[address] [facility] (63722) Comment: Performed By: #### PT, CMP, CBCDIF ####[place] [address] [phone] MCH (RBC) [Entitic mass] 22.9 26.0-34.0 pG Low 10-[address] [facility] (92806) Comment: Performed By: #### PT, CMP, CBCDIF ####[place] [address] [phone] MCHC (RBC) [Mass/Vol] 28.3 30.5-36.0 g/dL Low 10-31-[address] [facility] (95884) Comment: Performed By: #### PT, CMP, CBCDIF ####[address] [place] [address] [phone] MCV (RBC) [Entitic vol] 80.9 80.0-100.0 fL Normal 10-[address] [facility] (52841) Comment: Performed By: #### PT, CMP, CBCDIF ####[place] [address] [place] [address] [phone] [place]% 3.0 % Normal 10-31-[address] [facility] (24610) Comment: Performed By: #### PT, CMP, CBCDIF ####[address] [place] [address] [phone] Monocytes/100 WBC (Bld) 4.0 % Normal [address] [facility] (06650) Comment: Performed By: #### PT, CMP, CBCDIF ####[place] [address] [address] [phone] Neutrophils/100 WBC (Bld) 73.0 % Normal 10-[address] [facility] (88914) Comment: Performed By: #### PT, CMP, CBCDIF ####[place] [address] [address] [phone] NRBCs 12 0 /100 WBC High 10-31-[address] [facility] (55728) Comment: Performed By: #### PT, CMP, CBCDIF ####[address] [place] [address] [phone] Ovalocytes Few Normal 10-31-2019 [facility] (17450) Comment: Performed By: #### PT, CMP, CBCDIF ####[address] [place] [address] [phone] Platelet mean <<DO NOT REPORT>> 9.0-12.7 Normal 10-31-19 20 [facility] volume (Bld) [place] ([address]) [Entitic vol] Comment: Performed By: #### PT, CMP, CBCDIF ####[place] [address] [phone] Platelets (Bld) [#/Vol] 41 150-400 k/uL Low [address] [facility] (44697) Comment: Result Comment: Result check ed and verified No clot detected. Performed By: #### PT, CMP, CBCDIF ####[address] [place] [address] [phone] Platelets (Bld) Platelet estimate Normal 2019 [facility] [#/Vol] decreased [place] (44232) Comment: Performed By: #### PT, CMP, CBCDIF ####[address] [place] [address] [phone] Polychromasia Slight Normal 10-31-2019 [facility] (63988) Comment: Performed By: #### PT, CMP, CBCDIF ####[place] [address] [phone] RBC (Bld) [#/Vol] 3.14 4.20-6.00 m/uL Low 10-31-2019 [facility] (73736) Comment: Performed By: #### PT, CMP, CBCDIF ####[address] [place] [address] [phone] RBC Fragments Few Normal 10-31-2019 [facility] (78842) Comment: Performed By: #### PT, CMP, CBCDIF ####[place] [address] [phone] TSH Qn Present Normal 10-31-[address] [facility] (20795) Comment: Performed By: #### PT, CMP, CBCDIF ####[place] [address] [phone] WBC (Bld) [#/Vol] 9.17 3.70-11.00 k/uL Normal 10-31-[address] [facility] (43782) Comment: Performed By: #### PT, CMP, CBCDIF ####[place] [address] [phone] blood culture on 31-10-18 Bacteria identified Cx Culture Result - No Normal 10-31-2019 [facility] Nom (Bld) growth 5 days [place] and (04401) Comment: Performed By: #### BLCUL ### [address] [phone] cr-chest 1 view (portable) import on 2019-10-30 CR-Chest 1 View Images were obtained outside of [facility] Normal 10-30-2019 [facility] (Portable) IMPORT [id number] [place] (14884) cnpn on 2019-10-29 CNPN Telephone (RADTMN) Normal 10-29-2019 [facility] TANYATIANA ([id number]) 1940 M [place] Date Time Provider Department (41137) 10/29/19 CARMELO ROSEN (RN) RADSARAN During your [...] Kiser - Fully Assessed 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 to follow up on [...] by CARMELO ROSEN on 10/20/19 CNPN Telephone (IkariaN) Normal 10-20-2019 [place] [facility] TIANA MARTÍNEZ ([id number]) 1940 M [place] Date Time Provider Department (81036) 10/20/19 SAM SANCHEZ RADMIMI During your visit today, we recorded the following informati on about you: Dixie Harrell [facility] 10/20/2019 1:27 PM Signed This form is used for MAIN CAMPUS APPOINTMENTS ONLY. Is this request for a Main Filion PET sc an appointment? Yes: House Calls Nurse Practitioner: Dixie Harrell Pss Requesting Person DIXIE HARRELL: [phone] Area Code + Phone/Page r: [phone] Who do we call to schedule this [...] Thigh Diagnostic CT W/Contrast: No Comments for Advertisement Compositor: na ROUTE TO SCHEDULERS POOL P PET PERFECT BINDER SETTER or P [facility] Manolo Fuller 10/21/2019 9:18 AM Signed Spoke with son to schedule pet. Allergies As of Date: 10/20/2019 Noted Allergy Reaction BEES 08/01/2007 Date Reviewed: 06/14/2019 Reviewed by: Cesilia Kiser - Fully Assessed Reason for Visit: Nm Pet Request [1418] Prescriptions as of 10/20/2019 Sig: ELIQUIS 5 [...] Encounter Status:Closed by MANOLO FULLER [facility]RADTMN) Normal 10-18-2019 [place] [facility] TIANA MARTÍNEZ ([id number]) [address] [facility] Time Provider Department (88843) 10/18/19 OLIVER SCHUMACHER (RES) RADTMN During your visit today, we recorded the following informati on about you: Oliver Schumacher MD, MD 10/18/2019 1:44 PM Signed Received meet-me line call from Tiana Martínez's son. [facility] with AMS. Workup revealed a new l eft lung mass suspicious for a new primary lung cancer vs metastasis of hi s previously treated lung cancer. The patient will ob tain imaging and radiology reports and send to Dr. Sanchez' office. Dr. Sanchez and team notified . Oliver Schumacher MD Radiation Oncology Resident [phone] Allergies As of Date: 10/18/2019 Noted Allergy [...] on 10/18/19 cnpn on 2019-09-01 CNPN Telephone (IkariaN) Normal 09-01-2019 [facility] TIANA MARTÍNEZ ([id number]) 1940 [facility] Date Time Provider Department (79351) 09/01/19 CARMELO ROSEN (RN) PATRIZIA During your [...] a Radiation oncologist, he would need a fl dical oncologist. Dr. Sanchez recommended Dr. 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 Shy Alvarado [facility] 07/02/2019 4:02 PM Signed CD [facility] BRE[facility] CD READY FOR BREAK [facility] Allergies As of Date: 07/02/2019 Noted [...] 08/11/19 progress on 2019-05 PROGRESS HNO ID: [id number] Normal 06-11-2019 [facility] Author: Cesilia Kiser [place] Service: ? ([id number]) Author Type: Physician Type: Progress Notes Filed: [...] of face ? ? 5 total areas 6637-9093 - COPD (chronic obstructive pulmonary disease) (HCC) [...] OR W/O BRSH SPEC ? 06/14/07 ? [facility] inpt TURP Right knee surgery Eye surgery [...] [facility] for [facility]. [...] JOSE F Office Visit (TONY) Normal 06-11-[address] [place] [address] [facility] TIANA MARTÍNEZ ([id number]) 1940 [facility] Date Time Provider Department (29435) 06/11/19 1:10 PM CESILIA KISER During your [...] of face ? ? 5 total areas 2804-1022 - COPD (chronic obstructive pulmonary disease) (HCC) [...] Laterality Date - COLON[facility]COP [facility]/ [facility] ? [facility] inpt TURP Right knee surgery Eye surgery [...] 06/14/19 progress on 2019-05 PROGRESS HNO ID: [id number] Normal 05-26-2019 [facility] Author: Sam Sanchez [place] ([id number]) Service: ? Author Type: Physician Type: Progress [...] pathology on 2019-05-20 SURGICAL Specimen originated from [facility] Normal 05-20-2019 [place] [facility] Specimen #: [id number] Clinic Submitting Physician: SIMI SAMPSON M.D. [place] ([id number]) FINAL DIAGNOSIS Lung, right upper lobe, needle biopsy - Fragments of scar (S ee comment). COMMENT The scar is focally infarcted. No granulomas or malignant ce lls are identified. aTm Courtney M.D. (Electronic Signature) SPECIMEN SUBMITTED A: RIGHT UPPER LOBE LUNG BIOPSY CLINICAL DATA LUNG CANCER GROSS DESCRIPTION A. Received in formalin are multiple segments of cylindrical tissue aggregating to 3.2 x 0.1 x 0.1 cm, lewis-brown to black and of a soft and friable consistency. Totally submitted in formalin in one ca ssette. Gross examination performed at [facility], [address] [place] [address] 05/20/2019 9:12:14 PM Date of Report: 05/21/2019 Date of Procedure: 05/20/2019 Date of Receipt: 05/20/2019 Submitted by: SIMI SAMPSON M.D. Additional Physician(s): SAM SANCHEZ MD Location: [facility] Diagnostic interpretation performed at [place] [address]. CLIA Number: [id number] pt ed on 2019-05-20 PT ED HNO ID: [id number] Normal 05-20-2019 [facility] Author: Abena JasmineRn) JUNIE Waters [place] ([id number]) Service: Radiology Author Type: Registered Nurse Type: [...] RN progress on 2019-05 PROGRESS HNO ID: [id number] Normal 05-20-2019 [facility] Author: Jacqueline Goldsmith)(Hist) PERI Segov[place] ([id number]) Service: Radiology Author Type: Clinical Steam Plant Operator Type: Progress Notes Filed: 05/20/2019 1:37 PM [...] nursing prog on NURSING PROG HNO ID: [id number] Normal 05-20-19 [facility] Author: Abena (Junie) JUNIE Waters [place] ([id number]) Service: Radiology Author Type: Registered Nurse Type: [...] history physical on 2019-05-20 HISTORY HNO ID: [id number] Normal 05-20-2019 [place] PHYSICAL Author: Sophie Melton (Fel) [facility] Service: Cardiovascular Medicine [place] Author Type: Fellow ([id number]) Type: HANDP Filed: 05/20/2019 12:41 PM Note [...] 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 5235-2359 - COPD (chronic obstructive pulmonary disease) (HCC) - CVA (cerebral vascular accident) ([facility]) 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 - Diverticulosis of colon (without mention of hemorrhage) - DM (diabetes mellitus) ([facility]) - Hemorrhage of gastrointestinal tract, unspecified - Hypercholesteremia - Lung cancer (HCC) - Sebaceous cyst knee - Sebaceous cyst arm pit - Sebaceous cyst back PAST SURGICAL HISTORY Procedure Laterality Date - COLONOSCOP W/ OR W/O BRSH SPEC 06/14/07 [facility] inpt Prior to Admission medications as of [...] May 20, 2019 TIME: 12:36 PM PAGER: [phone] ct biopsy lung on 2 CT BIOPSY LUNG * * *Final Report* * * Normal [facility] DATE OF EXAM: May 20 2019 2:12PM [place] ([id number]) [facility] 2009 - CT BIOPSY LUNG / PROCEDURE [...] sterile sheet, hand hygiene and cutaneous antisepsis). [facility] factory local anesthesia. Under CT-fluoroscopic guidance, [...] the: attending radiologist (Dr. Sampson), with an bookkeeper assistant (Dr. Ab rowley). The attending radiologist performed the following procedural activities: Procedure start time:1324 Procedure end time: 1357 Sedation: 2 mg Versed and 100 mcg fentanyl Start time: 1319 End time: 1400 Samples: 4 core biopsies to surgical pathology in formalin. DLP: 247 mGy*cm IMPRESSION: CT guided core sampling of right upper lobe nodu le. Mask Design Engineer: SCOOBY Transcribe Date/Time: May 20 2019 3:23P Dictated by : SOPHIE MELTON MD This examination was interpreted and the report reviewed and electronically signed by: SIMI SAMPSON MD on May 20 2019 5:05PM EST [id number] protime on PT Coag (PPP) [Time] 10.4 9.7-13.0 sec Normal [address] [facility] ([id number]) Comment: Performed By: #### CBC, PT # ###[facility] [place], [place] [phone]- [phone] PT Coag (PPP) [Time] 1.0 0.9-1.3 s Normal [address] [facility] (43235) Comment: Result Comment: Vitamin K An tagonist (VKA) Therapeutic Range: INR 2 to 3 (Target INR of 2.5) Note: For patients treated w ith VKA drugs, such as warfarin, the [employer] 2012 Guideline recommends a therapeutic INR range of 2 to 3 (target INR of 2.5). This recommendation includes high-risk patients with antiphospholipid syndrome with previous arterial or venous thromboembolism, current-generation mechanical or bioprosthetic aortic heart valve replacement. Note: Patients with music box mechanic al aortic valve replacement and additional risk factors for thromboembolic events (atrial fibrillation, previous thromboembolism, LV dysfunction, hypercoagulable conditions) or an older generation mecha nical AVR (i.e., ball in-Cage) or any mechanical MVR should have a INR therapeutic range of 2.5 to 3.5 (target INR of 3). Vitaliy GH, et al. Chest 2012 , 141:7S-47S Janet MCNEAL et al. [facility] 20 17, 70: 252-289 Performed By: #### CBC, PT # ###[facility] [place], [place] [phone]- [phone] nursing prog on NURSING HNO ID: [id number] Normal 05-15-2019 [facility] Author: Jackie Lopez) Eileen WELL DIGGER Clinic Service: ? [place] Author Type: LICENSED NURSE ([id number]) Type: Nursing Progress Note Filed: 05/15/2019 10:47 AM Note Text: Pre-procedure instructions: Contacted Tiana Martínez and confirmed appt. for Biopsy Lung scheduled on 05/20/2018, at [facility]. Diet: Do not eat any solid food [...] to be drawn by 05/19/2018 at the [facility] ic Lab. Arrival: Please bring your Photo ID and Insurance Card. A general consent may need to be signed. Arrival at 10:30amn to desk QB[facility] ([facility]) and check in for your procedure. Your anticipated procedure start time will be between 12:00p m AND 12:30pm. Precision Inspector/Transportation: How will you be arriving for your procedure? private car. If you will be arriving at [facility] via ambulance or public transportation, please call to discuss. You will need a responsible adult to accompany you to and fr om the procedure. Your corporate driver is required to stay with you until you are taken into the Procedure room. Recovery expectations: You will be in the recovery room post procedure for a minimu m of 1 Hour. Special concerns: Do you use CPAP or BPAP? No Written instructions provided to patient via edohart If you have any questions please call [phone] cbc on 2019-05-15 Absolute nRBC <0.01 <0.01 Normal 05-15-2019 [facility] ([id number]) Comment: Performed By: #### CBC, PT # ###[facility] [address] [place], [place] [id number]- [phone] Erythrocyte distribution 14.6 11.5-15.0 % Normal 05-15 [facility] width (RBC) [Ratio] [facility] (12934) Comment: Performed By: #### CBC, PT # ###[place] [address] [place], [place] [phone]- [phone] Hematocrit (Bld) [Volume 39.0 39.0-51.0 % Normal 05-15 [facility] fraction] [facility] (73302) Comment: Performed By: #### CBC, PT # ###[place] [address], [place] [phone]- [phone] Hemoglobin (Bld) 12.6 13.0-17.0 g/dL Low 05-15-2019 [facility] [Mass/Vol] [facility] (31007) Comment: Performed By: #### CBC, PT # ###[address] [place], [place] [phone]- [phone] MCH (RBC) [Entitic mass] 28.7 26.0-34.0 pG Normal 05-[address] [facility] (52565) Comment: Performed By: #### CBC, PT # ###[address] [place], [place] [phone]- [phone] MCHC (RBC) [Mass/Vol] 32.3 30.5-36.0 g/dL Normal 05-15-[address] [facility] (60096) Comment: Performed By: #### CBC, PT # ###[address] [place], [place] [phone]- [phone] MCV (RBC) [Entitic vol] 88.8 80.0-100.0 fL Normal 05-[address] [facility] (20722) Comment: Performed By: #### CBC, PT # ###[address], [place] [phone]- [phone] Platelet mean volume 11.8 9.0-12.7 fL Normal 0 [facility] (Bld) [Entitic vol] [place] (88428) Comment: Performed By: #### CBC, PT # ###[address], [place] [phone]- [phone] Platelets (Bld) [#/Vol] 249 150-400 k/uL Normal [address] [facility] (54786) Comment: Performed By: #### CBC, PT # ###[place] [address] [place], [place] [phone]- [phone] RBC (Bld) [#/Vol] 4.39 4.20-6.00 m/uL Normal 05-15-2019 [facility] (86305) Comment: Performed By: #### CBC, PT # ###[place] [id number] [place], [place] [phone]- [phone] WBC (Bld) [#/Vol] 9.36 3.70-11.00 k/uL Normal 05-15-[address] 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 INTERVAL HISTORY: [facility] company [facility] [...] MD progress on 2019-04 PROGRESS HNO ID: [id number] Normal 04-24-2019 [facility] Author: Cesilia Kiser [place] Service: ? 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 4146-5223 - COPD (chronic obstructive pulmonary disease) ([facility]) - CVA (cerebral vascular accident) ([facility]) 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 - Diverticulosis of colon (without mention of hemorrhage) - DM (diabetes mellitus) ([facility]) - Hemorrhage of gastrointestinal tract, unspecified - Hypercholesteremia - Lung cancer (HCC) - Sebaceous cyst knee - Sebaceous cyst arm pit - Sebaceous cyst back Right eye blindness PAST SURGICAL HISTORY Procedure Laterality Date - [facility] inpt TURP Right knee surgery Eye surgery [...] in his discussion and often discusses his [facility] medical experiences that are tangential to this [...] to return to the clinic at his [facility] if he wishes to schedule for [...] type (HCC ) (Z79.01) Current use of intermediate card tender anticoagulation Return to Clinic: The patient is instructed to follow-up wit h me as per needed. I have confirmed and edited as necessary, the PFSH and ROS o btained by others. MD jose f Sadler on 2019-04-24 CNOV Office Visit (GENSWS) Normal 04-24-20 19 [place] [facility] TIANA MARTÍNEZ ([id number]) 1940 [facility] Date Time Provider Department ([id number]) 04/24/19 1:30 PM CESILIA KISER During your [...] last Mammogram screening? 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 0677-9233 - COPD (chronic obstructive pulmonary disease) (HCC) - CVA (cerebral vascular accident) ([facility]) 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 - Diverticulosis of colon (without mention of hemorrhage) - DM (diabetes mellitus) ([facility]) - Hemorrhage of gastrointestinal tract, unspecified - Hypercholesteremia - Lung cancer (HCC) - Sebaceous cyst knee - Sebaceous cyst arm pit - Sebaceous cyst back Right eye blindness PAST SURGICAL HISTORY Procedure Laterality Date - COLONOSCOP W/ OR W/O [facility] SPEC 06/14/07 [facility] inpt TURP Right knee surgery Eye surgery [...] this pat ient encounter was spent in iykg-bl-ldjs discussion regarding the patient's past medical history [...] type (HCC ) (Z79.01) Current use of retirement anticoagulation Return to Clinic: The patien t [...] 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 Author Type: Physician Type: Progress [...] for potentially ongoing active disease. At the [facility] time PET scan demonstrates a [...] for potentially ongoing active disease. 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 An eGFR <60 mL/min/1.73m2 for >3 months is consistent with c hronic kidney disease. Refer to KDOQI guidelines for clinical interpretati on. In patients with unstable renal function, e.g. those with ac tangirnaq kidney injury, the eGFR may not accurately reflect actual GFR. eGFR- Date Value Ref Range Status 01/13/2016 >60 Final P.O.C.T. RESULTS: N/A April 01, [address] PERFORMED: No IV SITE: Ambulatory: A peripheral IV was started in the [facility] t antecubital site with a Angio cath: 22 gauge. POST EXAM PIV STATUS: Discontinued PROCEDURE TYPE: NM INJECT: PET/CT BODY SCAN. 10.2 mCi F18 FD G. No other medications given.. ADMINISTRATION TIME: 0820 PATIENT DISCHARGED TO: Ambulatory patient, [facility]. A Diagnostic radioactive procedure has taken place, with no further precautions necessary other than routine body substance prec autions. More information regarding radiation safety can be found using is link: [email or web address] SIGNATURE: Rei Suarez PATIENT NAME: Tiana Martínez DATE: April 01, 2019 TIME: 8:25 AM PAGER/CONTACT #: ia pet/ct skull-thigh subq on 2019-04-01 [facility] PET/CT * * *Final Report* * * Normal [address] [place] [address] SKULL-THIGH SUBQ * * * SEE BOTTOM OF REPORT FOR ADDENDED TEXT * * * ([id number]) DATE OF EXAM: Apr 01 2019 10:03AM MDP 0063 - [facility] PET/CT SKULL-THIGH SUBQ / 4 PROCEDURE REASON: [...] thyroid nodule; ultras onographic correlation is recommended. Mask Design Engineer: SCOOBY Transcribe Date/Time: Apr 01 2019 1:39P Dictated by : REMI GRAYSON MD This examination was interpreted and the report reviewed and electronically signed by: REMI GRAYSON MD on Apr 01 2019 1:34PM EST This document has been addended by: REMI GRAYSON MD on 2018 1:39PM EST [id number] progress on 2018-12 PROGRESS HNO ID: [id number] Normal 01-05-2019 [facility] Author: Sam Sanchez [facility] Service: ? ([id number]) Author Type: Physician Type: Progress Notes Filed: [...] 2018-12-31 CNOV Office Visit (RADTMN) Normal 01-01-20 [facility] TIANA MARTÍNEZ ([id number]) 1940 M [place] Date Time Provider Department (96691) 12/31/18 10:00 AM SAM SANCHEZ RADSARAN During [...] and more avid may need to con driver examiner biopsy versus salvage therapy at that time. [...] and more avid may need to con driver examiner biopsy versus salvage therapy at that time. 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 Follow-up and Disposition History Recorded Encounter Status:Closed by SAM SANCHEZ MD on 01/05/19 us thyroid/parathyroid on 2018-12-24 US THYROID/PARATHYROID * * *Final Report* * * Santana mir 12-24-2018 [place] DATE OF EXAM: Dec 24 2018 10:02AM [facility] WRU 1048 - US THYROID/PARATHYROID / [facility] PROCEDURE REASON: Nontoxic single thyroid nodule (37302) * * * * Physician Interpretation * [...] in the midportion of the left lobe. Mask Design Engineer: SCOOBY Transcribe Date/Time: Dec 25 2018 8:55A Dictated by : TIANA RAZO MD This examination was interpreted and the report reviewed and electronically signed by: TIANA RAZO MD on Dec 25 2018 8:59AM EST [id number] progress on 2018-12 PROGRESS HNO ID: [id number] Normal 12-24-2018 [facility] Author: Louann Ponce [facility] ([id number]) Service: ? Author Type: ? Type: Progress [...] 24, 2018 9:45 AM PROGRESS HNO ID: [id number] Normal 12-24-2018 [facility] Author: Jacqueline Garg (Ct) PERI [place] ([id number]) Service: ? Author Type: Clinical Steam Plant Operator Type: Progress Notes Filed: 12/24/2018 9:03 AM [...] * *Final Report* * * Normal 12-24 [facility] IVCON DATE OF EXAM: Dec 24 2018 9:04AM [place] ([id number]) [facility] 0541 - CT CHEST WO IVCON / [...] atory. Follow-up is suggested. No thoracic lymphadenopathy. Mask Design Engineer: PSCB Transcribe Date/Time: Dec 24 2018 2:54P [...] [id number] 6. Body temperature 98.6 [degF] 11-07-2019 [facility] ([id number]) Body temperature 98.6 [degF] 10-31-2019 [facility] (57239) Procedures Procedure Name Date Provider Location Antibody screen 11-08-[address] [facility] (61076) Comment: Performed By: #### TSCR #### [facility] [place], [place] [phone]- [phone] Antibody screen 11-05-[address] [facility] (99812) Comment: Performed By: #### TSCR #### [facility] [address] [place], [place] [phone]- [phone] Antibody screen 11-02-[address] [facility] (83847) Comment: Performed By: #### TSCR #### [facility] [address] [place] [place], [place] [phone]- [phone] Antibody screen 11-01-[address] [facility] (26004) Comment: Performed By: #### TSCR #### [facility] [address] [place], [place] [phone]- [phone] Summary Purpose Family History No Family [...] BE BASED ON THE PRIMARY CLINICAL RECORDS. [facility] provides no warranty or guarantee of the accuracy or completeness of information in this document. UNRECOGNIZED CONTENT PROVIDED BELOW FOR UNRECOGNIZED SECTION No Status Records FoundNo Status Records Found UNRECOGNIZED CONTENT PROVIDED BELOW FOR UNRECOGNIZED SECTION INFORMATION SOURCE DATE CREATED AUTHOR AUTHOR'S ORGANIZATIO N 04/01/2019 [facility] DATE CREATED AUTHOR AUTHOR'S ORGANIZATIO N 11/28/2019 [facility]
--- OUTSIDE RECORDS SUMMARY | 2020-02-29 08:54 | XMS RPT_ITS | CCD ---
:1940 External Reference #:[id number] Author Organization [facility] Care Team Providers Name Role Phone Unavailable Unavailable Unavailable Results Result Name Value Range Unit Interpretation Flag Date Location cnpn on 2019-11-11 CNPN Telephone (RADTMN) Normal 11-11-2019 [facility] TIANA MARTÍNEZ ([id number]) 1940 [facility] Date Time Provider Department ([id number]) 11/11/19 [facility] During your visit today, we recorded the following informati on about you: Carmelo Rosen RN, RN 11/11/2019 9:17 AM Signed Returned a call to Mr. Martínez's son, Tiana. He wanted t o let me know that his father had taken a turn for the worst. He wanted to give m e the update that his father is now inpatient Hospice at [facility]. He wanted to let us know how grateful he is for the care Dr. Sanchez and team gave to his father. 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] Cmt: update Prescriptions as of 11/11/2019 Sig: [...] Urate [Mass/Vol] 5.3 4.0-8.1 mg/dL Normal 11-08-2019 [facility] (18945) Comment: Performed By: #### PT, CMP, MG1, PHOS, URIC, CBCDIF ####[facility] [address] [place], [place] [phone] type and screen on 2019-11-08 ABO/RH(D) O POSITIVE Normal 11-08-2019 [facility] (89004) Comment: Performed By: #### TSCR #### [facility] [address]zg[address] [place], [place] [phone] protime on PT Coag (PPP) [Time] 1.0 0.9-1.3 s Normal 0 [facility] (81353) Comment: Result Comment: Vitamin K An tagonist (VKA) Therapeutic Range: INR 2 to 3 (Target INR of 2.5) Note: For patients treated w ith VKA drugs, such as warfarin, the [place] [employer] 2012 Guideline recommends a therapeutic INR range of 2 to 3 (target INR of 2.5). This recommendation includes high-risk patients with antiphospholipid syndrome with previous arterial or venous thromboembolism, current-generation mechanical or bioprosthetic aortic heart valve replacement. Note: Patients with farm machinery set up mechanic al aortic valve replacement and additional risk factors for thromboembolic events (atrial fibrillation, previous thromboembolism, LV dysfunction, hypercoagulable conditions) or an older generation mecha nical AVR (i.e., ball in-Cage) or any mechanical MVR should have a INR therapeutic range of 2.5 to 3.5 (target INR of 3). Vitaliy GH, et al. Chest 2012 , 141:7S-47S Janet RA et al. [facility] 20 17, 70: 252-289 Performed By: #### PT, CMP, MG1, PHOS, URIC, CBCDIF ####[facility] [address] [place], [place] [phone] PT Coag (PPP) [Time] 10.7 9.7-13.0 sec Normal 11-07- 0 [facility] (71282) Comment: Performed By: #### PT, CMP, MG1, PHOS, URIC, CBCDIF ####[facility] [address] [place], [place] [phone] progress on 2019-10 PROGRESS HNO ID: [id number] Normal 11-08-2019 [place] Author: Matthew Puri [facility] Service: Oncology Cl maricel Author Type: Physician ([id number]) Type: Progress Notes Filed: 11/11/2019 5:27 PM Note Text: HEMATOLOGY/ONCOLOGY SOLID TUMOR INPATIENT PROGRESS NOTE PATIENT NAME: Tiana Martínez SERVICE DATE: 11/08/2019 TIME: 5:00 AM PRIMARY SERVICE: [address] DAY: 8 CODE STATUS: Code Status: [...] for discharge with home Hospice services at [facility]. - Update post-rounds: unable to tolerate [...] radiation, with ongoing discussion regarding transition to [facility] Hospice services given overall functional status limiting [...] November 08, 2019 TIME: 5:00 AM PHONE: [phone] HEMATOLOGY/MEDICAL ONCOLOGY/[facility] STA FF: STAFF PHYSICIAN [...] [place] [id number] plan of care on PLAN OF CARE HNO ID: [id number] Normal 11-08-19 [facility] Author: Levy (Res) Yadira Lock ([id number]) Service: Oncology Author Type: Resident Type: Plan of Care Filed: 11/08/2019 12:37 PM Note Text: Point of Care Update / Plan of Care Plan to transition patient to Hospice with [facility] assuming care after transportation home from [facility] [place], with transportatio n (BLS) planned for 1500 today. Discussed plan with son (Mr. Tiana laguerre Jr) by phone. DNR-CC form signed and placed in green [facility], along with paper prescriptions for oxycodone and lorazepam (due to issu es with electronic prescription). Plan for additional dose of lorazepam and oxycodone prior to transportation. Thank you for the opportunity to be involved in Mr. Martínez's care. Levy May MD phosphorus on 11-07 Phosphate [Mass/Vol] 4.2 2.7-4.8 mg/dL Normal 0 [facility] (09107) Comment: Performed By: #### PT, CMP, MG1, PHOS, URIC, CBCDIF ####[facility] [address] [place], [place] [phone] nursing prog on NURSING HNO ID: [id number] Normal 11-08-2019 [place] PROG Author: Tamara (Rn) JUNIE [facility] Service: Hematology/Oncology [place] Author Type: Registered Nurse ([id number]) Type: Nursing Progress Note Filed: 11/08/2019 5:26 PM Note Text: Nursing Progress Note Patient Name: Tiana Martínez Patient Location: [place] [address] Daily Note: Assumed care of pt at [...] by: Tamara John, JUNIE NURSING HNO ID: [id number] Normal 11-08-2019 [place] PROG Author: Loreta (Rn) JUNIE [facility] Service: ? [place] Author Type: Registered Nurse ([id number]) Type: Nursing Progress Note Filed: 11/08/2019 6:58 AM Note Text: Nursing Progress Note Patient Name: Tiana Martínez Patient Location: [place] [address]- Daily Note: 2114: pt newly disoriented to place. Able to reorient patien t. Pt reports feeling more weak after getting into bed. lap welder notified. No new orders at this time. After 2118 breathing treatment, pt reports imp rovement in condition This note was completed by: Loreta Smith RN magnesium on 11-07 Magnesium [Mass/Vol] 3.1 1.7-2.3 mg/dL High 0 [facility] (74132) Comment: Performed By: #### PT, CMP, MG1, PHOS, URIC, CBCDIF ####[facility] [address] [place], [place] [phone] comp metabolic panel on 2019-11-08 Albumin [Mass/Vol] 2.9 3.9-4.9 g/dL Low 11-08-2019 [facility] (74210) Comment: Performed By: #### PT, CMP, MG1, PHOS, URIC, CBCDIF ####[facility] [address] [place], [place] [phone] ALP [Catalytic activity/Vol] 144 38-113 U/L High 0 11-08-2019 [facility] (64427) Comment: Performed By: #### PT, CMP, MG1, PHOS, URIC, CBCDIF ####[facility] [address] [place], [place] [phone] ALT [Catalytic activity/Vol] 69 10-54 U/L High 0 11-08-2019 [facility] (70622) Comment: Performed By: #### PT, CMP, MG1, PHOS, URIC, CBCDIF ####[facility] [address] [place], [place] [phone] Anion gap [Moles/Vol] 12 9-18 mmol/L Normal 11-08-19 20 [facility] (89893) Comment: Performed By: #### PT, CMP, MG1, PHOS, URIC, CBCDIF ####[facility] [place] [phone] AST [Catalytic activity/Vol] 225 14-40 U/L High 0 11-08-2019 [facility] (94644) Comment: Performed By: #### PT, CMP, MG1, PHOS, URIC, CBCDIF ####[place] [address] [address] [place] [phone] Bilirubin [Mass/Vol] 0.5 0.2-1.3 mg/dL Normal 0 [facility] (89008) Comment: Performed By: #### PT, CMP, MG1, PHOS, URIC, CBCDIF ####[facility] [place], [place] [phone] Calcium [Mass/Vol] 9.8 8.5-10.2 mg/dL Normal 11-08-2019 [facility] (68473) Comment: Performed By: #### PT, CMP, MG1, PHOS, URIC, CBCDIF ####[facility] [place], [place] [phone] Chloride [Moles/Vol] 101 97-105 mmol/L Normal 0 [facility] (43875) Comment: Performed By: #### PT, CMP, MG1, PHOS, URIC, CBCDIF ####[facility] [address] [place], [place] [phone] CO2 [Moles/Vol] 28 22-30 mmol/L Normal 11-08-[address] [facility] (80021) Comment: Performed By: #### PT, CMP, MG1, PHOS, URIC, CBCDIF ####[facility] [address] [place], [place] [phone] Creatinine [Mass/Vol] 1.26 0.73-1.22 mg/dL High 11-08-19 20 [facility] (67037) Comment: Performed By: #### PT, CMP, MG1, PHOS, URIC, CBCDIF ####[facility] [place], [place] [phone] eGFR- Amer. >60 Normal 11-08-2019 [facility] (28609) Comment: Performed By: #### PT, CMP, MG1, PHOS, URIC, CBCDIF ####[facility] [address] [place], [place] [phone] GFR/1.73 sq M predicted among 55 . Normal 11-08-2019 [facility] non-blacks MDRD (S/P/Bld) [Vol (19563) rate/Area] Comment: Result Comment: eGFR (Estima alejandrina [...] #### PT, CMP, MG1, PHOS, URIC, CBCDIF ####[facility] [address] [place], [place] [phone] Glucose [Mass/Vol] 136 74-99 mg/dL High 11-08-2019 [facility] (70715) Comment: Result Comment: The [place] Diabetes Association (ADA) provides guidance for cutoff [...] for diagnosis of diabetes. Reference: Standards of [facility] Care in Diabetes 2016, [place] [employer]. Diabetes Care. 2016.39(Suppl 1). Performed By: #### PT, CMP, MG1, PHOS, URIC, CBCDIF ####[facility] [address] [place], [place] [phone] Potassium [Moles/Vol] 4.3 3.7-5.1 mmol/L Normal 11-08-19 20 [facility] (55457) Comment: Performed By: #### PT, CMP, MG1, PHOS, URIC, CBCDIF ####[facility] [address] [place], [place] [phone] Protein [Mass/Vol] 5.1 6.3-8.0 g/dL Low 11-08-2019 [facility] (73089) Comment: Performed By: #### PT, CMP, MG1, PHOS, URIC, CBCDIF ####[facility] [address] [place], [place] [phone] Sodium [Moles/Vol] 141 136-144 mmol/L Normal 11-08-2019 [facility] (96879) Comment: Performed By: #### PT, CMP, MG1, PHOS, URIC, CBCDIF ####[facility] [address] [place], [place] [phone] Urea nitrogen [Mass/Vol] 49 9-24 mg/dL High 11-07 [facility] (65406) Comment: Performed By: #### PT, CMP, MG1, PHOS, URIC, CBCDIF ####[facility] [place], [place] [phone] cbc and differential on 2019-11-08 Abs Baso 0.00 <0.11 k/uL Normal 11-08-2019 [facility] (76113) Comment: Performed By: #### PT, CMP, MG1, PHOS, URIC, CBCDIF ####[facility] [place], [place] [phone] Abs [place] 0.19 <0.87 k/uL Normal 11-08-2019 [facility] (03896) Comment: Performed By: #### PT, CMP, MG1, PHOS, URIC, CBCDIF ####[place] [address] [address] [place] [phone] Abs Neut 8.45 1.45-7.50 k/uL High 11-08-2019 [facility] (92554) Comment: Performed By: #### PT, CMP, MG1, PHOS, URIC, CBCDIF ####[place] [address] [address] [place] [phone] Acanthocytes Few Normal 11-08-2019 [facility] (92675) Comment: Performed By: #### PT, CMP, MG1, PHOS, URIC, CBCDIF ####[facility] [place] [phone] Anisocytosis Ql (Bld) Present Normal 11-08-19 20 [facility] (56001) Comment: Performed By: #### PT, CMP, MG1, PHOS, URIC, CBCDIF ####[place] [address] [place] [phone] Basophils/100 WBC (Bld) 0.0 % Normal 2019 [facility] (37685) Comment: Performed By: #### PT, CMP, MG1, PHOS, URIC, CBCDIF ####[facility] [address] [place], [place] [phone] DTYPE Manual Diff Normal 11-08-2019 [facility] (12901) Comment: Performed By: #### PT, CMP, MG1, PHOS, URIC, CBCDIF ####[facility] [place], [place] [phone] Eosinophils (Bld) [#/Vol] 0.00 <0.46 k/uL Normal 10-13 [facility] (25386) Comment: Performed By: #### PT, CMP, MG1, PHOS, URIC, CBCDIF ####[facility] [place], [place] [phone] Eosinophils/100 WBC (Bld) 0.0 % Normal 10-13 [facility] (13740) Comment: Performed By: #### PT, CMP, MG1, PHOS, URIC, CBCDIF ####[facility] [place], [place] [phone] Erythrocyte distribution 27.9 11.5-15.0 % High 11-07 [facility] width (RBC) [Ratio] [place] (96703) Comment: Performed By: #### PT, CMP, MG1, PHOS, URIC, CBCDIF ####[facility] [place] [phone] Hematocrit (Bld) [Volume 24.9 39.0-51.0 % Low 11-07 [facility] fraction] (67006) Comment: Performed By: #### PT, CMP, MG1, PHOS, URIC, CBCDIF ####[facility] [address] [place], [place] [phone] Hemoglobin (Bld) 7.6 13.0-17.0 g/dL Low 11-08-2019 [facility] [Mass/Vol] [place] (47454) Comment: Performed By: #### PT, CMP, MG1, PHOS, URIC, CBCDIF ####[facility] [place], [place] [phone] Lymphocytes (Bld) [#/Vol] 1.35 1.00-4.00 k/uL Normal 10-13 [facility] (00057) Comment: Performed By: #### PT, CMP, MG1, PHOS, URIC, CBCDIF ####[facility] [place], [place] [phone] Lymphocytes/100 WBC (Bld) 12.5 % Normal 10-13 [facility] (23396) Comment: Performed By: #### PT, CMP, MG1, PHOS, URIC, CBCDIF ####[place] [address] [address] [place], [place] [phone] MCH (RBC) [Entitic mass] 25.3 26.0-34.0 pG Low 11-07 [facility] (41781) Comment: Performed By: #### PT, CMP, MG1, PHOS, URIC, CBCDIF ####[facility] [place], [place] [phone] MCHC (RBC) [Mass/Vol] 30.5 30.5-36.0 g/dL Normal 11-08-19 [facility] (92160) Comment: Performed By: #### PT, CMP, MG1, PHOS, URIC, CBCDIF ####[facility] [place], [place] [phone] MCV (RBC) [Entitic vol] 83.0 80.0-100.0 fL Normal 11-07 [facility] (90731) Comment: Performed By: #### PT, CMP, MG1, PHOS, URIC, CBCDIF ####[facility] [place], [place] [phone] Stone% 3.6 % Normal 11-08-2019 [facility] (88771) Comment: Performed By: #### PT, CMP, MG1, PHOS, URIC, CBCDIF ####[facility] [address] [place], [place] [phone] Monocytes/100 WBC (Bld) 1.8 % Normal 2019 [facility] (74563) Comment: Performed By: #### PT, CMP, MG1, PHOS, URIC, CBCDIF ####[facility] [address] [place], [place] [phone] Myelo% 3.6 % Normal 11-08-2019 [facility] (22040) Comment: Performed By: #### PT, CMP, MG1, PHOS, URIC, CBCDIF ####[facility] [address] [place] [phone] Neutrophils/100 WBC (Bld) 78.5 % Normal 10-13 [facility] (46622) Comment: Performed By: #### PT, CMP, MG1, PHOS, URIC, CBCDIF ####[facility] [address] [place] [phone] NRBCs 5 0 /100 WBC High 11-08-2019 [facility] (44067) Comment: Performed By: #### PT, CMP, MG1, PHOS, URIC, CBCDIF ####[facility] [address] [place], [place] [phone] Ovalocytes Few Normal 11-08-2019 [facility] (88299) Comment: Performed By: #### PT, CMP, MG1, PHOS, URIC, CBCDIF ####[facility] [address] [place], [place] [phone] Platelet mean <<DO NOT REPORT>> 9.0-12.7 Normal 11-08-19 20 [facility] volume (Bld) [place] (04656) [Entitic vol] Comment: Performed By: #### PT, CMP, MG1, PHOS, URIC, CBCDIF ####[facility] [address] [place], [place] [phone] Platelets (Bld) Platelet estimate Normal 2019 [facility] [#/Vol] decreased [place] (34909) Comment: Performed By: #### PT, CMP, MG1, PHOS, URIC, CBCDIF ####[facility] [place], [place] [phone] Platelets (Bld) [#/Vol] 36 150-400 k/uL Low 2019 [facility] (41155) Comment: Result Comment: Result check ed and verified No clot detected. Performed By: #### PT, CMP, MG1, PHOS, URIC, CBCDIF ####[place] [address] [address] [place], [place] [phone] Polychromasia Slight Normal 11-08-2019 [facility] (88691) Comment: Performed By: #### PT, CMP, MG1, PHOS, URIC, CBCDIF ####[facility] [place], [place] [phone] RBC (Bld) [#/Vol] 3.00 4.20-6.00 m/uL Low 11-08-2019 [facility] (74617) Comment: Performed By: #### PT, CMP, MG1, PHOS, URIC, CBCDIF ####[facility] [address] [place], [place] [phone] RBC Fragments Few Normal 11-08-2019 [facility] (21957) Comment: Performed By: #### PT, CMP, MG1, PHOS, URIC, CBCDIF ####[facility] [address] [place], [place] [phone] Spherocytes Few Normal 11-08-2019 [facility] (12824) Comment: Performed By: #### PT, CMP, MG1, PHOS, URIC, CBCDIF ####[facility] [address] [place], [place] [phone] Target Cells Few Normal 11-08-2019 [facility] (27419) Comment: Performed By: #### PT, CMP, MG1, PHOS, URIC, CBCDIF ####[facility] [address] [place], [place] [phone] TSH Qn Present Normal 11-08-2019 [facility] (61087) Comment: Performed By: #### PT, CMP, MG1, PHOS, URIC, CBCDIF ####[facility] [place], [place] [phone] WBC (Bld) [#/Vol] 10.77 3.70-11.00 k/uL Normal 11-08-2019 [facility] (94842) Comment: Performed By: #### PT, CMP, MG1, PHOS, URIC, CBCDIF ####[facility] [address] [place], [place] [phone] case managem on 202 CASE MANAGEM HNO ID: [id number] Normal 11-08-19 20 [facility] Author: Clau Mcintyre (Lisw) [place] ([id number]) Service: Care Management Author Type: Aircraft Metalsmith Type: Care Mgt Progress Note Filed: 11/08/2019 [...] own home under care of [facility] [phone] HANDOFF COMMUNICATION: Handoff to: Primary Care Physician;Other Caregiver Primary Care Physician Name/Phone: Kevon Harrell (sent [facility]) [phone] (Ph); AND Kaia Lou, (P h) Other Caregiver Name/Phone: [facility] ([phone]) TRANSPORTATION ARRANGEMENTS: Transportation Arrangements: Ambulance/[employer] and Phone #:: [facility] [phone] Date of Trip: 11/08/19 Type of Service: BLS Non-emergency Is Patient Medicaid Pending?: No Discussion of financial coverage occurred with: Family Reptile Keeper Location: [place] Destination: Home: [address], [address], [place] [address] (Trip # [id number]) Financial Care Management Responsibility: None ADDITIONAL CONTACT RESOURCES: n/a DC to home today, as Physician stated that pt did not tolera te trial supination AND decision made to forego Radiation Therapy. D/C scheduled for 11/08/19 @ 3 pm (pick-up by [facility], BLS), transporting to home under care of [facility] ([phone]). SW/CM spoke w / [facility] Liaison (Katelynn) AND pest control chemical technician (Ro). Physician to sign Po rtable DNR (on green chart). Dr. Levy May informed that [facility] pest control chemical technician ( [facility]) requesting 2 comfort medications (10 tablets per prescriptio n, to cover until [facility] is able to get their own medications ordered). Physician provided hard copy of prescriptions, which pt's so n will have filled upon arrival home. Scripts sent with packet of inform ation. Son to get meds filled at [facility] in [place], [place], . SW/CM confirmed all d/c plans w/ son on phone. Son will alternate presence in home w/ a friend of his who has experience in c. Son state s he may not be able to stay w/ pt 04/12, but is making arrangements w/ fr iend to help. DME's (hospital bed AND 02) being delivered to pt's home tod ivania. [facility] w/ pt's sonTiana ([phone]). Updated notes sent to [facility] via [employer]. Summa ry of Care sent to Dr. Kevon Harrell AND to Hospice. RN Report do es not need to be called, as they have the information via Allscripts. Once patient arrives home, [facility] will come to pt' s home. IM Letter given. Son to get meds filled at local [facility]. CARIN Rainey, JANETH SIGNATURE: CARIN Blake, JANETH PATIENT NAME: Tiana castorena DATE: November 08, 2019 TIME: 11:46 AM PAGER/CONTACT #: [phone] xr chest 1v frontal port on 2019-11-07 XR CHEST 1V * * *Final Report* * * Normal 11-06 [facility] FRONTAL PORT DATE OF EXAM: Nov 07 2019 9:45AM [place] ([id number]) YENY 5376 - XR CHEST 1V FRONTAL [...] unde rlying volume loss.. IMPRESSION: See result. Animal Groomer: SCOOBY Transcribe Date/Time: Nov 07 2019 11:16A Dictated by : GARY TAVERA MD This examination was interpreted and the report reviewed and electronically signed by: GARY TAVERA MD on Nov 07 2019 11:18AM EST [id number] uric acid on 11-06 Urate [Mass/Vol] 4.5 4.0-8.1 mg/dL Normal 11-07-2019 [facility] (94274) Comment: Performed By: #### PT, CMP, MG1, PHOS, URIC, CBCDIF ####[facility] [address] [place], [place] [phone] therapy nt on 11-06 THERAPY HNO ID: [id number] Normal 11-07-2019 [place] NT Author: Brionna (Ot/L) [facility]: ? [place] Author Type: Occupational Therapist ([id number]) Type: Therapy (PT/OT/Speech/Resp) Filed: 11/07/2019 2:29 PM Note Text: Occupational Therapy Evaluation SERVICE DATE: 11/07/2019 SERVICE TIME: 1250 to 1400 ROOM: [place] [address] Recommended Discharge Disposition: Home Recommended Discharge Disposition [...] mobility. Per pt, planning to d/c ho wi with Hospice. 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 SIGNATURE: Brionna Landers OT/L PATIENT NAME: Tiana Martínez DATE: November 07, 2019 TIME: 2:13 PM THERAPY HNO ID: [id number] Normal 11-07-2019 [place] NT Author: Huy (Pt) [facility] Service: Physical Therapy [place] Author Type: Physical Therapist (40389) Type: Therapy (PT/OT/Speech/Resp) Filed: 11/07/2019 9:53 AM Note Text: Physical Therapy Evaluation SERVICE DATE: 11/07/2019 SERVICE TIME: 16 to 0942 ROOM: [place] [address] Recommended Discharge Disposition: Home PT Anticipated Discharge [...] Weakness (gen eralized) Interventions Provided: Evaluation;Gait Training (49454) $ Evaluation-Moderate (46355) Billed Units: 1 unit Gait Training (41360) Treatment Minutes: 11 1 unit Skilled Intervention(s): [...] more Please see discipline specific clinical documentation [facility] for complete details for this therapy evaluation/treatment. SIGNATURE: Huy Brown PT PATIENT NAME: Tiana Martínez DATE: November 07, 2019 TIME: 9:51 AM protime on PT Coag (PPP) [Time] 1.0 0.9-1.3 s Normal 0 [facility] (74920) Comment: Result Comment: Vitamin K An tagonist (VKA) Therapeutic Range: INR 2 to 3 (Target INR of 2.5) Note: For patients treated w ith VKA drugs, such as warfarin, the [place] [employer] 2012 Guideline recommends a therapeutic INR range of 2 to 3 (target INR of 2.5). This recommendation includes high-risk patients with antiphospholipid syndrome with previous arterial or venous thromboembolism, current-generation mechanical or bioprosthetic aortic heart valve replacement. Note: Patients with farm machinery set up mechanic al aortic valve replacement and additional risk factors for thromboembolic events (atrial fibrillation, previous thromboembolism, LV dysfunction, hypercoagulable conditions) or an older generation mecha nical AVR (i.e., ball in-Cage) or any mechanical MVR should have a INR therapeutic range of 2.5 to 3.5 (target INR of 3). Geraldinett GH, et al. Chest 2012 , 141:7S-47S Janet RA, et al. [facility] 20 , 70: 252-289 Performed By: #### PT, CMP, MG1, PHOS, URIC, CBCDIF ####[facility] [address] [place], [place] [phone] PT Coag (PPP) [Time] 10.6 9.7-13.0 sec Normal 0 [facility] (85317) Comment: Performed By: #### PT, CMP, MG1, PHOS, URIC, CBCDIF ####[facility] [address] [place], [place] [phone] progress on 2019-10 PROGRESS HNO ID: [id number] Normal 11-07-2019 [facility] Author: Matthew Puri Lock ([id number]) Service: Oncology Author Type: Physician Type: Progress [...] [phone] 240 ? Output (ml) [phone] 175 Net (ml) [phone] Labs CBC: Recent Labs 11/07/19 0535 11/06/19 [...] NaCl 0.9%, Last Rate: 10 mL/hr (11/04/19 7096) Micro BCx 10/[address] [...] pending 10/31/19 1215 vte pharmacologic prophylaxis contraindicated (ri,va) 10/31/19 1215 pneumatic compression stockings (ri,va) 10/31/19 1215 activity - mobilize patient (ri,va) SIGNATURE: Skylar Seay MD PHD PGY-1 PATIENT NAME: Tiana medina DATE: 11/07/2019 TIME: 7:58 AM PAGER: [phone] Note: These recommendations are not final until staffed by max harris HEMATOLOGY/MEDICAL ONCOLOGY/[facility] STA FF: STAFF PHYSICIAN [...] Otherw [place] [id number] plan of care on PLAN OF CARE HNO ID: [id number] Normal 11-07-19 [facility] Author: Levy (ResAnatoly May [place] ([id number]) Service: Oncology Author Type: Resident Type: Plan of Care Filed: 11/07/2019 5:57 PM Note Text: Point of Contact Update / Family Discussion Called son Mr. Tanya Gutierrez at listed number ([phone]) and placed on speakerphone to facilitate family [...] MRI and plan for transition to home [facility] e services. Upon clarification, Mr. Martínez [...] will be made for discharge from [facility] at earliest possibility - pending establishment [...] May MD PLAN OF CARE HNO ID: [id number] Normal 11-07-19 [facility] Author: Ilia Nevarez [place] ([id number]) Service: Radiation Oncology Author Type: Physician Type: [...] Arlette Weathers MD Radiation Oncology Resident Pager: [phone] Case reviewed with the resident and I concur with her recomm endations. Ilia Nevarez MD Covering for Attending Dr. Sam Sanchez. phosphorus on 11-06 Phosphate [Mass/Vol] 3.2 2.7-4.8 mg/dL Normal 0 [facility] (91052) Comment: Performed By: #### PT, CMP, MG1, PHOS, URIC, CBCDIF ####[facility] [address] [place], [place] [phone] nutrition on 11-06 NUTRITION HNO ID: [id number] Normal 11-07-2019 [facility] Author: Analisa Rivera (Dtr) Gerard Lokc ([id number]) Service: Nutrition Therapy Author Type: Stamp Presser Type: Nutrition Filed: 11/07/2019 11:59 AM Note Text: NUTRITION THERAPY BOILER ENGINEER NOTE SERVICE DATE: 11/07/2019 SERVICE TIME: 7:40 [...] PAGER: nursing prog on NURSING HNO ID: [id number] Normal 11-07-2019 [place] [facility] Author: Loreta (Rn) [facility] Service: ? [place] Author Type: Registered Nurse ([id number]) Type: Nursing Progress Note Filed: 11/07/2019 5:55 AM Note Text: Nursing Progress Note Patient Name: Tiana Martínez Patient Location: [place] [address] Daily Note: 2149: pt BP 167/71. Pt denied symptoms. lap welder notified, co reg ordered and administered per JUL 2249: cable television technician physician at bedside after being paged by RT d /t pt c/o SOB and wheezing. Pt was given breathing treatment. lap welder orde red continuous pulse ox. 0534: pt BP 165/89. Pt denies symptoms. lap welder notified. No new orders at this time This note was completed by: Loreta Smith RN magnesium on 11-06 Magnesium [Mass/Vol] 2.7 1.7-2.3 mg/dL High 0 [facility] (06948) Comment: Performed By: #### PT, CMP, MG1, PHOS, URIC, CBCDIF ####[facility] [address] [place] [phone] gasv + all on 11-06 Base Excess 6 mmol/L Normal 11-07-2019 [facility] (70505) Comment: Performed By: #### VALLBG ## ##[facility] [place], [place] [phone] Blood Gas Comm, G[place] . Normal 11-07-2019 [facility] (89483) Comment: Performed By: #### VALLBG ## ##[facility] [place], [place] [phone]- [phone] Calcium [Mass/Vol] 1.32 1.08-1.30 mmol/L High 11-07-2019 [facility] (38404) Comment: Performed By: #### VALLBG ## ##[place] [address] [place], [place] [phone] Carboxyhemoglobin,Gerson 2.2 <2.1 % High 11-07-19 20 [facility] (73423) Comment: Performed By: #### VALLBG ## ##[place] [address] [address] [place], [place] [phone] CO2 [Moles/Vol] 33 25-29 mmol/L High 11-07-[address] [facility] (62817) Comment: Performed By: #### VALLBG ## ##[place] [address] [place], [place] [phone]- [phone] Glucose [Mass/Vol] 142 60-105 mg/dL High 11-07-2019 [facility] (05047) Comment: Performed By: #### VALLBG ## ##[place] [address] [address] [place], [place] [phone] HCO3 (Bld) [Moles/Vol] 31 24-28 mmol/L High 020 [facility] (72166) Comment: Performed By: #### VALLBG ## ##[place] [address] [place], [place] [phone] Hematocrit (Bld) [Volume 26.0 39.0-51.0 % Low 11-06 [facility] fraction] (54233) Comment: Performed By: #### VALLBG ## ##[place] [address] [place], [place] [phone]- [phone] Hemoglobin (Bld) 8.4 13.0-17.0 g/dL Low 11-07-2019 [facility] [Mass/Vol] [place] (49431) Comment: Performed By: #### VALLBG ## ##[place] [address] [place], [place] [phone]- [phone] Lactate [Moles/Vol] 1.7 0.5-2.2 mmol/L Normal 11-07-2019 [facility] (97149) Comment: Performed By: #### VALLBG ## ##[place] [address] [place], [place] [phone] Methemoglobin 0.9 <1.6 % Normal 11-07-2019 [facility] (02658) Comment: Performed By: #### VALLBG ## ##[place] [address] [place], [place] [phone] Oxygen (Bld) [Partial 71 35-45 mm Hg High 11-07-19 20 [facility] pressure] (09010) Comment: Performed By: #### VALLBG ## ##[place] [address], [place] [phone] Oxyhemoglobin, Gerson. 90 60-85 % High 11-07-2019 [facility] (32614) Comment: Performed By: #### VALLBG ## ##[place] [address], [place] [phone] pCO2 49 42-55 mm Hg Normal 11-07-2019 [facility] (65449) Comment: Performed By: #### VALLBG ## ##[place] [address], [place] [phone] pCO2, Temp Correct 49 42-55 mm Hg Normal 11-07-2019 [facility] (62482) Comment: Performed By: #### VALLBG ## ##[place] [address]KelvinMount [place], [place] [phone]- [phone] pH (Bld) 7.42 7.32-7.42 [pH] Normal 11-07-2019 [facility] (40725) Comment: Performed By: #### VALLBG ## ##[place] [address] [place], [place] [phone] pH, Temp Corrected 7.42 7.32-7.42 Normal 11-07-2019 [facility] (79269) Comment: Performed By: #### VALLBG ## ##[place] [address] [address], [place] [phone]- [phone] pO2, Temp Corrected 71 35-45 mm Hg High 11-07-2019 [facility] (70072) Comment: Performed By: #### VALLBG ## ##[place] [address], [place] [phone]- [phone] Potassium [Moles/Vol] 4.0 3.5-5.0 mmol/L Normal 11-07-19 [facility] (26990) Comment: Performed By: #### VALLBG ## ##[place] [address], [place] [phone]- [phone] Sodium [Moles/Vol] 140 136-144 mmol/L Normal 11-07-2019 [facility] (30178) Comment: Performed By: #### VALLBG ## ##[place] [address], [place] [phone]- [phone] consult on CONSULT HNO ID: [id number] Normal 11-07-2019 [facility] Author: Della De Pasquale [place] ([id number]) Service: Palliative Care Author Type: Nurse Practitioner Type: Consults Filed: 11/07/2019 4:49 PM Note Text: PALLIATIVE MEDICINE INITIAL CONSULT To contact the [facility] palliative medicine service from 5p - 8a on weekdays and anytime during the weekend, please go to the On -Call Directory and type palliative in the search bar. We are jules fuentes under [facility]-Nfzn[facility]-Qjafolhjzp Medicine. SERVICE DATE: 11/07/2019 PATIENT NAME: Tiana [...] a 79 year old m tamara from [place], [place] admitted from OSH 10/31/19 with dyspnea. [...] bicytopenia. Patient states he lives alone in [place]. Son lives nearby. 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 [facility] has a facility that is very close to his home that he is familiar with. States he has a patient navigator who he has already started talking to about this. Dispo --Will need local follow up based on goals of care. [facility] has both palliative medicine and hospice. I [...] shared electronic medical record. SIGNATURE: Della Giordano APRN.BLANKBOOK FORWARDER PAGER/CONTACT #: [phone] comp metabolic panel on 2019-11-07 Albumin [Mass/Vol] 2.8 3.9-4.9 g/dL Low 11-07-2019 [facility] (39452) Comment: Performed By: #### PT, CMP, MG1, PHOS, URIC, CBCDIF ####[facility] [address] [place] [phone] ALP [Catalytic activity/Vol] 150 38-113 U/L High 0 11-07-2019 [facility] (71725) Comment: Performed By: #### PT, CMP, MG1, PHOS, URIC, CBCDIF ####[place] [address] [place] [phone] ALT [Catalytic activity/Vol] 68 10-54 U/L High 0 11-07-2019 [facility] (27288) Comment: Performed By: #### PT, CMP, MG1, PHOS, URIC, CBCDIF ####[facility] [address] [place], [place] [phone] Anion gap [Moles/Vol] 8 9-18 mmol/L Low 11-07-19 [facility] (38361) Comment: Performed By: #### PT, CMP, MG1, PHOS, URIC, CBCDIF ####[facility] [address] [place], [place] [phone] AST [Catalytic activity/Vol] 224 14-40 U/L High 0 11-07-2019 [facility] (43075) Comment: Performed By: #### PT, CMP, MG1, PHOS, URIC, CBCDIF ####[facility] [address] [place], [place] [phone] Bilirubin [Mass/Vol] 0.6 0.2-1.3 mg/dL Normal 0 [facility] (82802) Comment: Performed By: #### PT, CMP, MG1, PHOS, URIC, CBCDIF ####[facility] [place], [place] [phone] Calcium [Mass/Vol] 9.5 8.5-10.2 mg/dL Normal 11-07-2019 [facility] (90989) Comment: Performed By: #### PT, CMP, MG1, PHOS, URIC, CBCDIF ####[facility] [place] [phone] Chloride [Moles/Vol] 104 97-105 mmol/L Normal 0 [facility] (77753) Comment: Performed By: #### PT, CMP, MG1, PHOS, URIC, CBCDIF ####[place] [address] [place] [phone] CO2 [Moles/Vol] 30 22-30 mmol/L Normal 11-07-[address] [facility] (87295) Comment: Performed By: #### PT, CMP, MG1, PHOS, URIC, CBCDIF ####[facility] [place], [place] [phone] Creatinine [Mass/Vol] 1.20 0.73-1.22 mg/dL Normal 11-07-19 20 [facility] (51955) Comment: Performed By: #### PT, CMP, MG1, PHOS, URIC, CBCDIF ####[facility] [place], [place] [phone] eGFR- Amer. >60 Normal 11-07-2019 [facility] (75262) Comment: Performed By: #### PT, CMP, MG1, PHOS, URIC, CBCDIF ####[facility] [place], [place] [phone] GFR/1.73 sq M predicted among 58 . Normal 11-07-2019 [facility] non-blacks MDRD (S/P/Bld) [Vol (50467) rate/Area] Comment: Result Comment: eGFR (Estima alejandrina [...] #### PT, CMP, MG1, PHOS, URIC, CBCDIF ####[facility] [address] [place], [place] [phone] Glucose [Mass/Vol] 123 74-99 mg/dL High 11-07-2019 [facility] (76349) Comment: Result Comment: The [place] [employer] (ADA) provides guidance for cutoff [...] for diagnosis of diabetes. Reference: Standards of [facility] Care in Diabetes 2016, [place] [employer]. Diabetes Care. 2016.39(Suppl 1). Performed By: #### PT, CMP, MG1, PHOS, URIC, CBCDIF ####[facility] [address] [place], [place] [phone] Potassium [Moles/Vol] 3.9 3.7-5.1 mmol/L Normal 11-07-19 [facility] (73853) Comment: Performed By: #### PT, CMP, MG1, PHOS, URIC, CBCDIF ####[facility] [place], [place] [phone] Protein [Mass/Vol] 5.0 6.3-8.0 g/dL Low 11-07-2019 [facility] (81577) Comment: Performed By: #### PT, CMP, MG1, PHOS, URIC, CBCDIF ####[place] [address] [place] [phone] Sodium [Moles/Vol] 142 136-144 mmol/L Normal 11-07-2019 [facility] (85347) Comment: Performed By: #### PT, CMP, MG1, PHOS, URIC, CBCDIF ####[place] [address] [place] [phone] Urea nitrogen [Mass/Vol] 37 9-24 mg/dL High 11-06 [facility] (52121) Comment: Performed By: #### PT, CMP, MG1, PHOS, URIC, CBCDIF ####[place] [address] [place] [phone] cbc and differential on 2019-11-07 Abs Baso 0.00 <0.11 k/uL Normal 11-07-2019 [facility] (71473) Comment: Performed By: #### PT, CMP, MG1, PHOS, URIC, CBCDIF ####[place] [address] [place] [phone] Abs [place] 0.28 <0.87 k/uL Normal 11-07-2019 [facility] (03613) Comment: Performed By: #### PT, CMP, MG1, PHOS, URIC, CBCDIF ####[place] [address] [place] [phone] Abs Neut 8.02 1.45-7.50 k/uL High 11-07-2019 [facility] (34906) Comment: Performed By: #### PT, CMP, MG1, PHOS, URIC, CBCDIF ####[facility] [place], [place] [phone] Acanthocytes Few Normal 11-07-2019 [facility] (53480) Comment: Performed By: #### PT, CMP, MG1, PHOS, URIC, CBCDIF ####[place] [address] [place], [place] [phone] Anisocytosis Ql (Bld) Present Normal 11-07-19 [facility] (14602) Comment: Performed By: #### PT, CMP, MG1, PHOS, URIC, CBCDIF ####[place] [address] [place], [place] [phone] Basophils/100 WBC (Bld) 0.0 % Normal 2019 [facility] (79648) Comment: Performed By: #### PT, CMP, MG1, PHOS, URIC, CBCDIF ####[place] [address] [place], [place] [phone] DTYPE Manual Diff Normal 11-07-2019 [facility] (80597) Comment: Performed By: #### PT, CMP, MG1, PHOS, URIC, CBCDIF ####[place] [address] [place], [place] [phone] Eosinophils (Bld) [#/Vol] 0.00 <0.46 k/uL Normal 10-13 [facility] (94722) Comment: Performed By: #### PT, CMP, MG1, PHOS, URIC, CBCDIF ####[place] [address] [place], [place] [phone] Eosinophils/100 WBC (Bld) 0.0 % Normal 10-13 [facility] (31000) Comment: Performed By: #### PT, CMP, MG1, PHOS, URIC, CBCDIF ####[facility] [address] [place], [place] [phone] Erythrocyte distribution 27.9 11.5-15.0 % High 11-06 [facility] width (RBC) [Ratio] [place] (23012) Comment: Performed By: #### PT, CMP, MG1, PHOS, URIC, CBCDIF ####[facility] [place], [place] [phone] Hematocrit (Bld) [Volume 26.0 39.0-51.0 % Low 11-06 [facility] fraction] (29484) Comment: Performed By: #### PT, CMP, MG1, PHOS, URIC, CBCDIF ####[facility] [place], [place] [phone] Hemoglobin (Bld) 7.7 13.0-17.0 g/dL Low 11-07-2019 [facility] [Mass/Vol] [place] (38744) Comment: Performed By: #### PT, CMP, MG1, PHOS, URIC, CBCDIF ####[facility] [address] [place], [place] [phone] Lymphocytes (Bld) [#/Vol] 1.80 1.00-4.00 k/uL Normal 10-13 [facility] (86377) Comment: Performed By: #### PT, CMP, MG1, PHOS, URIC, CBCDIF ####[facility] [address] [place], [place] [phone] Lymphocytes/100 WBC (Bld) 16.7 % Normal 10-13 [facility] (70567) Comment: Performed By: #### PT, CMP, MG1, PHOS, URIC, CBCDIF ####[facility] [address] [place], [place] [phone] MCH (RBC) [Entitic mass] 24.4 26.0-34.0 pG Low 11-06 [facility] (56988) Comment: Performed By: #### PT, CMP, MG1, PHOS, URIC, CBCDIF ####[facility] [place], [place] [phone] MCHC (RBC) [Mass/Vol] 29.6 30.5-36.0 g/dL Low 11-07-19 [facility] (99574) Comment: Performed By: #### PT, CMP, MG1, PHOS, URIC, CBCDIF ####[facility] [address] [place], [place] [phone] MCV (RBC) [Entitic vol] 82.5 80.0-100.0 fL Normal 11-06 [facility] (18268) Comment: Performed By: #### PT, CMP, MG1, PHOS, URIC, CBCDIF ####[facility] [place] [phone] Stone% 1.8 % Normal 11-07-2019 [facility] (75910) Comment: Performed By: #### PT, CMP, MG1, PHOS, URIC, CBCDIF ####[facility] [place] [phone] Monocytes/100 WBC (Bld) 2.6 % Normal 2019 [facility] (06323) Comment: Performed By: #### PT, CMP, MG1, PHOS, URIC, CBCDIF ####[facility] [place] [phone] Myelo% 4.4 % Normal 11-07-2019 [facility] (24349) Comment: Performed By: #### PT, CMP, MG1, PHOS, URIC, CBCDIF ####[facility] [address] [place], [place] [phone] Neutrophils/100 WBC (Bld) 74.5 % Normal 10-13 [facility] (99684) Comment: Performed By: #### PT, CMP, MG1, PHOS, URIC, CBCDIF ####[facility] [address] [place], [place] [phone] NRBCs 18 0 /100 WBC High 11-07-2019 [facility] (46178) Comment: Performed By: #### PT, CMP, MG1, PHOS, URIC, CBCDIF ####[facility] [address] [place], [place] [phone] Ovalocytes Few Normal 11-07-2019 [facility] (74511) Comment: Performed By: #### PT, CMP, MG1, PHOS, URIC, CBCDIF ####[facility] [address] [place], [place] [phone] Platelet mean <<DO NOT REPORT>> 9.0-12.7 Normal 11-07-19 20 [facility] volume (Bld) C[place]a nd (48857) [Entitic vol] Comment: Performed By: #### PT, CMP, MG1, PHOS, URIC, CBCDIF ####[facility] [place], [place] [phone] Platelets (Bld) [#/Vol] 36 150-400 k/uL Low 2019 [facility] (60888) Comment: Result Comment: Result check ed and verified No clot detected. Performed By: #### PT, CMP, MG1, PHOS, URIC, CBCDIF ####[facility] [address] [place], [place] [phone] Platelets (Bld) Platelet estimate Normal 2019 [facility] [#/Vol] decreased [facility] (47997) Comment: Performed By: #### PT, CMP, MG1, PHOS, URIC, CBCDIF ####[facility] [address] [place], [place] [phone] Polychromasia Slight Normal 11-07-2019 [facility] (38371) Comment: Performed By: #### PT, CMP, MG1, PHOS, URIC, CBCDIF ####[facility] [address] [place], [place] [phone] RBC (Bld) [#/Vol] 3.15 4.20-6.00 m/uL Low 11-07-2019 [facility] (51983) Comment: Performed By: #### PT, CMP, MG1, PHOS, URIC, CBCDIF ####[facility] [address] [place], [place] [phone] RBC Fragments Few Normal 11-07-2019 [facility] (56712) Comment: Performed By: #### PT, CMP, MG1, PHOS, URIC, CBCDIF ####[facility] [address] [place], [place] [phone] TSH Qn Present Normal 11-07-2019 [facility] (11816) Comment: Performed By: #### PT, CMP, MG1, PHOS, URIC, CBCDIF ####[facility] [place], [place] [phone] WBC (Bld) [#/Vol] 10.76 3.70-11.00 k/uL Normal 11-07-2019 [facility] (77937) Comment: Performed By: #### PT, CMP, MG1, PHOS, URIC, CBCDIF ####[facility], [place] [phone] case managem on CASE MANAGEM HNO ID: [id number] Normal 11-07-19 20 [facility] Author: Raisa JasmineRn) JUNIE Mcfarlane [place] ([id number]) Service: Care Management Author Type: Registered Nurse [...] CM [facility] with Saud [facility] . CM placed referral. Tiana states patient will go to his own home . Tiana plans on going to patient's home tomorrow to clear out space for H ospital Bed and Home Oxygen. This CM spoke with Ro from Hospice who states they will contact son tomorrow morning. CM informed Ro Trans portation is set for 3pm tomorrow to leave [facility]. Trip [id number] . Ro states this is plenty of [...] home with Hospice. Please page [place] Life Science Research Assistant @[phone] to coordinate and assist with discharge plann ing. If no weekend discharge, Life Science Research Assistant will reassess on Sunday for ongoing coordination of discharge plan. SIGNATURE: Raisa Mcfarlane RN PATIENT NAME: Tiana Martínez DATE: November 07, 2019 TIME: 5:00 PM PAGER/CONTACT #: [phone] CASE MANAGEM HNO ID: [id number] Normal 11-07-19 [facility] Author: CARIN Garland ([id number]) Service: Care Management Author Type: Aircraft Metalsmith Type: Care Mgt Progress Note Filed: 11/07/2019 3:55 PM Note Text: CARE MANAGEMENT WEEKEND PLANNING NOTE DISCHARGE OR POSSIBLE DISCHARGE Date/Time: TBD Disposition: TBD Transport: Family will transport at time of discharge. Other Concerns: Weekend Life Science Research Assistant Pager #: G Building - [phone] H Building - [phone] J Building - 77101 M Building - [phone] Primary medical team to have meeting with family to discuss plan of care. Dispo planning pending family outcome. Pt will possibly need to provide choices for hospice. (Home PT vs Outpatient PT vs Hospice) Son has discussed an agency ([facility]) however [facility] team has not had plan of care meeting and no referrals has been sent. ? Pt's family will transport at time of discharge. SIGNATURE: CARIN Garland PATIENT NAME: Tiana Martínez DATE: November 07, 2019 TIME: 3:52 PM PAGER/CONTACT #: [phone] xr chest 1v frontal port on 2019-11-06 XR CHEST 1V * * *Final Report* * * Normal 11-05 [facility] FRONTAL PORT DATE OF EXAM: Nov 06 2019 1:47PM [place] ([id number]) YENY 5376 - XR CHEST 1V FRONTAL [...] right hilum. Other: . IMPRESSION: See result. Animal Groomer: PSCKorey Transcribe Date/Time: Nov 06 2019 2:19P Dictated by : NAVA KYLE MD This examination was interpreted and the report reviewed and electronically signed by: NAVA KYLE MD on Nov 06 2019 2:20PM EST [id number] vitamin b12 on 2019 Cobalamin (Vitamin B12) 9214 067-1383 pg/mL Normal 2019 [facility] [Mass/Vol] [place] (18859) Comment: Performed By: #### IPFR, B12 , SERFOL ####[facility] [address] [place] [address] [phone] uric acid on 11-05 Urate [Mass/Vol] 4.7 4.0-8.1 mg/dL Normal 11-06-2019 [facility] (47735) Comment: Performed By: #### CMP, URIC ####[facility] [address] [place], [place] [phone] Urate [Mass/Vol] 5.2 4.0-8.1 mg/dL Normal 11-06-2019 [facility] (53524) Comment: Performed By: #### PT, CMP, MG1, PHOS, URIC, CBCDIF ####[facility] [address] [place], [place] [phone] protime on PT Coag (PPP) [Time] 10.8 9.7-13.0 sec Normal 0 [facility] (84199) Comment: Performed By: #### PT, CMP, MG1, PHOS, URIC, CBCDIF ####[facility] [address] [place], [place] [phone] PT Coag (PPP) [Time] 1.0 0.9-1.3 s Normal 0 [facility] (93991) Comment: Result Comment: Vitamin K An tagonist (VKA) Therapeutic Range: INR 2 to 3 (Target INR of 2.5) Note: For patients treated w ith VKA drugs, such as warfarin, the [place] [employer] 2012 Guideline recommends a therapeutic INR range of 2 to 3 (target INR of 2.5). This recommendation includes high-risk patients with antiphospholipid syndrome with previous arterial or venous thromboembolism, current-generation mechanical or bioprosthetic aortic heart valve replacement. Note: Patients with farm machinery set up mechanic al aortic valve replacement and additional risk factors for thromboembolic events (atrial fibrillation, previous thromboembolism, LV dysfunction, hypercoagulable conditions) or an older generation mecha nical AVR (i.e., ball in-Cage) or any mechanical MVR should have a INR therapeutic range of 2.5 to 3.5 (target INR of 3). Vitaliy GH, et al. Chest 2012 , 141:7S-47S Janet RA, et al. [facility] , 70: 252-289 Performed By: #### PT, CMP, MG1, PHOS, URIC, CBCDIF ####[facility] [address] [place], [place] [phone] progress on 2019-10 PROGRESS HNO ID: [id number] Normal 11-06-2019 [facility] Author: Matthew Lock ([id number]) Service: Oncology Author Type: Physician Type: Progress [...] [id number] ? Output (ml) 2800 5400 238 3656 200 Net (ml) -1440 [phone] [...] pending 10/31/19 1215 vte pharmacologic prophylaxis contraindicated (ri,va) 10/31/19 1215 pneumatic compression stockings (ri,va) 10/31/19 1215 activity - mobilize patient (ri,va) SIGNATURE: Skylar Seay MD PHD PGY-1 PATIENT NAME: Tiana medina DATE: 11/06/2019 TIME: 7:58 AM PAGER: [phone] Note: These recommendations are not final until staffed by max harris HEMATOLOGY/MEDICAL ONCOLOGY/[facility] BRAIN TUMOR MALVERN STA FF: STAFF PHYSICIAN NOTE OF PERSONAL [...] [place] [id number] plan of care on PLAN OF CARE HNO ID: [id number] Normal 11-06-19 [facility] Author: Levy (Res) Yadira Lock ([id number]) Service: Oncology Author Type: Resident Type: Plan [...] preclusive of safe administration of chemotherapy, in [facility] case discussions pertaining to goals of care, palliative efforts (such as radiation), and symptom management may be more appropriate. Will plan to discuss further with patient and son at bedside tomorrow (Monday 11/06) when Tiana Gutierrez returns to bedside to visit. Levy May MD phosphorus on 11-05 Phosphate [Mass/Vol] 3.4 2.7-4.8 mg/dL Normal 0 [facility] (26090) Comment: Performed By: #### PT, CMP, MG1, PHOS, URIC, CBCDIF ####[facility] [address], [place] [phone] path interp w cbcdif on 2019-11-06 Abs Baso 0.00 <0.11 k/uL Normal 11-06-2019 [facility] (24956) Comment: Performed By: #### CITPLT, S LATESHA ####[address] [place] [address] [phone] Abs [place] 0.11 <0.87 k/uL Normal 11-06-2019 [facility] (25196) Comment: Performed By: #### CITPLT, S LATESHA ####[place] [address] [address] [place] [address] Abs Neut 8.28 1.45-7.50 k/uL High 11-06-2019 [facility] (43069) Comment: Performed By: #### CITPLT, S LATESHA ####[place] [address] [place] [address] [phone] Absolute nRBC 0.97 <0.01 k/uL High 11-06-2019 [facility] (73867) Comment: Performed By: #### CITPLT, S LATESHA ####[place] [address] [place] [address] [phone] ANC(includeSEG+BAND) 8.28 k/uL Normal 0 [facility] (07426) Comment: Performed By: #### CITPLT, S LATESHA ####[facility] [place] [address] [phone] Anisocytosis Ql (Bld) Present Normal 11-06-19 [facility] (71570) Comment: Performed By: #### CITPLT, S LATESHA ####[facility] [place] [address] [phone] Basophils/100 WBC (Bld) 0.0 % Normal 2019 [facility] (73297) Comment: Performed By: #### CITPLT, S LATESHA ####[facility] [address] [place] [address] [phone] DTYPE Manual Diff Normal 11-06-2019 [facility] (21398) Comment: Performed By: #### CITPLT, S LATESHA ####[address] [place] [address] [phone] Eosinophils (Bld) [#/Vol] 0.00 <0.46 k/uL Normal 10-13 [facility] (15716) Comment: Performed By: #### CITPLT, S LATESHA ####[place] [address] [place] [address] [phone] Eosinophils/100 WBC (Bld) 0.0 % Normal 10-13 [facility] (98827) Comment: Performed By: #### CITPLT, S LATESHA ####[place] [address] [place] [address] [phone] Erythrocyte distribution 27.1 11.5-15.0 % High 11-05 [facility] width (RBC) [Ratio] [place] (80096) Comment: Performed By: #### CITPLT, S LATESHA ####[facility] [place] [address] [phone] Hematocrit (Bld) [Volume 26.8 39.0-51.0 % Low 11-05 [facility] (70756) Comment: Performed By: #### CITPLT, S LATESHA ####[place] [address] [place] [address] [phone] Hemoglobin (Bld) 8.1 13.0-17.0 g/dL Low 11-06-2019 [facility] [Mass/Vol] [place] (16716) Comment: Performed By: #### CITPLLittle S LATESHA ####[address] [place] [address] [phone] Lymphocytes (Bld) [#/Vol] 1.18 1.00-4.00 k/uL Normal 10-13 [facility] (84594) Comment: Performed By: #### CITPLLittle S LATESHA ####[address] [place] [address] [phone] Lymphocytes/100 WBC (Bld) 11.0 % Normal 10-13 [facility] (52140) Comment: Performed By: #### CITPLT S LATESHA ####[place] [address] [phone] MCH (RBC) [Entitic mass] 24.8 26.0-34.0 pG Low 11-05 [facility] (50215) Comment: Performed By: #### CITPLT, S LATESHA ####[place] [address] [phone] MCHC (RBC) [Mass/Vol] 30.2 30.5-36.0 g/dL Low 11-06-19 [facility] (19157) Comment: Performed By: #### CITPLT, S LATESHA ####[address] [place] [address] [phone] MCV (RBC) [Entitic vol] 82.2 80.0-100.0 fL Normal 11-05 [facility] (26470) Comment: Performed By: #### CITPLT S LATESHA ####[address] [address] [phone] Monocytes/100 WBC (Bld) 1.0 % Normal 2019 [facility] (67935) Comment: Performed By: #### CITPLT, S LATESHA ####[place] [address] [address] [place] [address] [phone] Myelo% 9.0 % Normal 11-06-2019 [facility] (34077) Comment: Performed By: #### CITPLT, S LATESHA ####[place] [address] [address] [place] [address] [phone] Neutrophils/100 WBC (Bld) 77.0 % Normal 10-13 [facility] (12795) Comment: Result Comment: See Patholog ist Interpretation Performed By: #### CITPLT, S LATESHA ####[address] [place] [address] [phone] NRBCs 9 0 /100 WBC High 11-06-2019 [facility] (06057) Comment: Performed By: #### CITPLT, S LATESHA ####[address] [place] [address] [phone] Ovalocytes Few Normal 11-06-2019 [facility] (23443) Comment: Performed By: #### CITPLT, S LATESHA ####[address] [place] [address] [phone] Pathologist Interp SEE COMMENT Normal 0 [facility] (63208) Comment: Result Comment: Normocytic A nemia With Moderate Polychromasia Thrombocytopenia Performed By: #### CITPLT, S LATESHA ####[address] [place] [address] [phone] Pathologist: Reviewed by Maria L De La Fuente 11-05 [facility] MD Freddie PhD (78209) [place] (52395) Comment: Performed By: #### CITPLT, S LATESHA ####[facility] [address] [place] [address] [phone] Plasma cell% 1.0 % Normal 11-06-2019 [facility] (50039) Comment: Performed By: #### CITPLT, S LATESHA ####[facility] [address] [place] [address] [phone] Platelet mean <<DO NOT REPORT>> 9.0-12.7 Normal 11-06-19 20 [facility] volume (Bld) [facility] nd (19645) [Entitic vol] Comment: Performed By: #### CITPLT, S LATESHA ####[place] [address] [place] [address] Platelets (Bld) [#/Vol] 43 150-400 k/uL Low 2019 [facility] (80361) Comment: Result Comment: Result check ed and verified No clot detected. Platelet count confirmed by manual review of peripheral blood smear. Performed By: #### CITPLT, S LATESHA ####[place] [address] [place] [address] Platelets (Bld) Platelet estimate Normal 2019 [facility] [#/Vol] decreased [facility] (46718) Comment: Performed By: #### CITPLT, S LATESHA ####[facility] [place] [address] Polychromasia Moderate Normal 11-06-2019 [facility] (69224) Comment: Performed By: #### CITPLT, S LATESHA ####[facility] [place] [address] Promyl% 1.0 % Normal 11-06-2019 [facility] (14431) Comment: Performed By: #### CITPLT, S LATESHA ####[place] [address] [place] [address] [phone] RBC (Bld) [#/Vol] 3.26 4.20-6.00 m/uL Low 11-06-2019 [facility] (85238) Comment: Performed By: #### JABARI S LATESHA ####[place] [address] [place] [address] [phone] RBC Fragments Few Normal 11-06-2019 [facility] (59146) Comment: Performed By: #### CITPLLittle S LATESHA ####[address] [place] [address] [phone] Spherocytes Few Normal 11-06-2019 [facility] (61932) Comment: Performed By: #### JABARI S LATESHA ####[place] [address] [place] [address] [phone] TSH Qn Present Normal 11-06-2019 [facility] (41936) Comment: Performed By: #### CITHALEY S LATESHA ####[place] [address] [place] [address] [phone] WBC (Bld) [#/Vol] 10.75 3.70-11.00 k/uL Normal 11-06-2019 [facility] (53716) Comment: Performed By: #### CITHALEY S LATESHA ####[place] [address] [phone] nursing prog on NURSING HNO ID: [id number] Normal 11-06-2019 [place] PROG Author: Loreta (Rn) [facility] Service: ? [place] Author Type: Registered Nurse ([id number]) Type: Nursing Progress Note Filed: 11/06/2019 5:22 AM Note Text: Nursing Progress Note Patient Name: Tiana Martínez [address] Daily Note: 11/05/19 2210: pt BP 182/93 automatic an 174/88 manual. Pt denies sym ptoms. lap welder notified. Captopril ordered and administered per 11/06/19 0301: pt reports feeling more short of breath and cough has increased in frequency. He is still coughing up moderate amount. Upon ass essment, pt expiratory wheezing has worsened. Pt desatting to 88% on 2L, oxygen increased to 3L. RT paged for PRN albuterol breathing treatm ent. lap welder notified and at bedside. No new orders at this time 0508: Pt BP 173/79, pt denies symptoms. lap welder notified. No new orders at this time This note was completed by: Loreta Smith RN magnesium on 2019-11-05 Magnesium [Mass/Vol] 2.9 1.7-2.3 mg/dL High 0 [facility] (27784) Comment: Performed By: #### PT, CMP, MG1, PHOS, URIC, CBCDIF ####[facility] [address], [place] [phone] imm plt frac on Imm Plt Frac 7.60 0.9-7.2 % High 11-06-2019 [facility] (71920) Comment: Performed By: #### IPFR, B12 , SERFOL ####[facility] [address] [place], [place] [phone] folate, serum on 31-10-24 Folate [Mass/Vol] >20.0 >4.7 ng/mL Normal 11-06-2019 [facility] (96706) Comment: Result Comment: A result of > 20 ng/mL is not necessarily indicative of a pathologic o r treatable condition: it reflects a soriano itation of the test methodology. Assay reference range: 4.8 t o 24.2 ng/mL. Suitable for detection of fo late deficiency. Reference: Folate III (Folate III) [pac kage insert V 2.0 Ecu[place]orean]. [facility], [place], [place]: March 2015. 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 Jostin Vinson MD Hematology Fellow, Hematology-Oncology [facility] 11/06/2019 3:27 PM [facility] STAFF PHYSICIAN NOTE OF PERSONAL INVOLVEMENT IN [...] Thank you. SIGNATURE: Nancy Kruse DO PAGER: [phone] DATE of SERVICE: November 06, 2019 TIME of SERVICE: 8:53 PM comp metabolic panel on 2019-11-06 Albumin [Mass/Vol] 3.0 3.9-4.9 g/dL Low 11-06-2019 [facility] (32956) Comment: Performed By: #### CMP, URIC ####[facility] [place], [place] [phone] ALP [Catalytic activity/Vol] 155 38-113 U/L High 0 11-06-2019 [facility] (21429) Comment: Performed By: #### CMP, URIC ####[place] [address] [address] [place], [place] [phone] ALT [Catalytic activity/Vol] 70 10-54 U/L High 0 11-06-2019 [facility] (35052) Comment: Performed By: #### CMP, URIC ####[place] [address] [address] [place], [place] [phone] Anion gap [Moles/Vol] 7 9-18 mmol/L Low 11-06-19 20 [facility] (85791) Comment: Performed By: #### CMP, URIC ####[address] [phone] AST [Catalytic activity/Vol] 232 14-40 U/L High 0 11-06-2019 [facility] (20667) Comment: Performed By: #### CMP, URIC ####[address] [phone] Bilirubin [Mass/Vol] 0.6 0.2-1.3 mg/dL Normal 0 [facility] (93613) Comment: Performed By: #### CMP, URIC ####[address] [phone] Calcium [Mass/Vol] 9.5 8.5-10.2 mg/dL Normal 11-06-2019 [facility] (80756) Comment: Performed By: #### CMP, URIC ####[place] [address] [place], [place] [phone] Chloride [Moles/Vol] 102 97-105 mmol/L Normal 0 [facility] (26316) Comment: Performed By: #### CMP, URIC ####[place] [address] [address] [place], [place] [phone] CO2 [Moles/Vol] 31 22-30 mmol/L High 11-06-[address] [facility] (43272) Comment: Performed By: #### CMP, URIC ####[facility] [address] [place], [place] [phone] Creatinine [Mass/Vol] 1.21 0.73-1.22 mg/dL Normal 11-06-19 20 [facility] (30905) Comment: Performed By: #### CMP, URIC ####[facility] [address] [place], [place] [phone] eGFR- Amer. >60 Normal 11-06-2019 [facility] (98281) Comment: Performed By: #### CMP, URIC ####[facility] [place], [place] [phone] GFR/1.73 sq M predicted among 58 . Normal 11-06-2019 [facility] non-blacks MDRD (S/P/Bld) [Vol (34432) rate/Area] Comment: Result Comment: eGFR (Estima alejandrina [...] actual GFR. Performed By: #### CMP, URIC ####[facility] [address] [place], [place] [phone] Glucose [Mass/Vol] 169 74-99 mg/dL High 11-06-2019 [facility] (33072) Comment: Result Comment: The [place] Diabetes Association (ADA) provides guidance for cutoff [...] for diagnosis of diabetes. Reference: Standards of [facility] Care in Diabetes 2016, [place] [employer]. Diabetes Care. 2016.39(Suppl 1). Performed By: #### CMP, URIC ####[place] [address] [place], [place] [phone] Potassium [Moles/Vol] 3.6 3.7-5.1 mmol/L Low 11-06-19 [facility] (68376) Comment: Performed By: #### CMP, URIC ####[address] [phone] Protein [Mass/Vol] 5.3 6.3-8.0 g/dL Low 11-06-2019 [facility] (72849) Comment: Performed By: #### CMP, URIC ####[place] [address] [place], [place] [phone] Sodium [Moles/Vol] 140 136-144 mmol/L Normal 11-06-2019 [facility] (89520) Comment: Performed By: #### CMP, URIC ####[address] [place], [place] [phone] Urea nitrogen [Mass/Vol] 33 9-24 mg/dL High 11-05 [facility] (49420) Comment: Performed By: #### CMP, URIC ####[place] [address] [address] [place], [place] [phone] Albumin [Mass/Vol] 2.9 3.9-4.9 g/dL Low 11-06-2019 [facility] (44327) Comment: Performed By: #### PT, CMP, MG1, PHOS, URIC, CBCDIF ####[facility] [place], [place] [phone] ALP [Catalytic activity/Vol] 146 38-113 U/L High 0 11-06-2019 [facility] (24151) Comment: Performed By: #### PT, CMP, MG1, PHOS, URIC, CBCDIF ####[facility] [place], [place] [phone] ALT [Catalytic activity/Vol] 69 10-54 U/L High 0 11-06-2019 [facility] (88566) Comment: Performed By: #### PT, CMP, MG1, PHOS, URIC, CBCDIF ####[place] [address] [address] [place], [place] [phone] Anion gap [Moles/Vol] 11 9-18 mmol/L Normal 11-06-19 20 [facility] (48326) Comment: Performed By: #### PT, CMP, MG1, PHOS, URIC, CBCDIF ####[place] [address] [address] [place], [place] [phone] AST [Catalytic activity/Vol] 216 14-40 U/L High 0 11-06-2019 [facility] (78964) Comment: Performed By: #### PT, CMP, MG1, PHOS, URIC, CBCDIF ####[place] [address] [address] [place], [place] [phone] Bilirubin [Mass/Vol] 0.6 0.2-1.3 mg/dL Normal 0 [facility] (65573) Comment: Performed By: #### PT, CMP, MG1, PHOS, URIC, CBCDIF ####[facility] [place], [place] [phone] Calcium [Mass/Vol] 9.5 8.5-10.2 mg/dL Normal 11-06-2019 [facility] (09275) Comment: Performed By: #### PT, CMP, MG1, PHOS, URIC, CBCDIF ####[facility] [address] [place], [place] [phone] Chloride [Moles/Vol] 102 97-105 mmol/L Normal 0 [facility] (68657) Comment: Performed By: #### PT, CMP, MG1, PHOS, URIC, CBCDIF ####[facility] [address] [place], [place] [phone] CO2 [Moles/Vol] 28 22-30 mmol/L Normal 11-06-[address] [facility] (46319) Comment: Performed By: #### PT, CMP, MG1, PHOS, URIC, CBCDIF ####[place] [address] [address] [place], [place] [phone] Creatinine [Mass/Vol] 1.24 0.73-1.22 mg/dL High 11-06-19 20 [facility] (86881) Comment: Performed By: #### PT, CMP, MG1, PHOS, URIC, CBCDIF ####[place] [address] [address] [place], [place] [phone] eGFR- Amer. >60 Normal 11-06-2019 [facility] (03753) Comment: Performed By: #### PT, CMP, MG1, PHOS, URIC, CBCDIF ####[place] [address] [address] [place], [place] [phone] GFR/1.73 sq M predicted among 56 . Normal 11-06-2019 [facility] non-blacks MDRD (S/P/Bld) [Vol (41160) rate/Area] Comment: Result Comment: eGFR (Estima alejandrina [...] #### PT, CMP, MG1, PHOS, URIC, CBCDIF ####[facility] [address] [place], [place] [phone] Glucose [Mass/Vol] 150 74-99 mg/dL High 11-06-2019 [facility] (93652) Comment: Result Comment: The [place] Diabetes Association (ADA) provides guidance for cutoff [...] for diagnosis of diabetes. Reference: Standards of [facility] Care in Diabetes 2016, [place] [employer]. Diabetes Care. 2016.39(Suppl 1). Performed By: #### PT, CMP, MG1, PHOS, URIC, CBCDIF ####[facility] [place], [place] [phone] Potassium [Moles/Vol] 3.7 3.7-5.1 mmol/L Normal 11-06-19 [facility] (48145) Comment: Performed By: #### PT, CMP, MG1, PHOS, URIC, CBCDIF ####[facility] [place], [place] [phone] Protein [Mass/Vol] 5.4 6.3-8.0 g/dL Low 11-06-2019 [facility] (51880) Comment: Performed By: #### PT, CMP, MG1, PHOS, URIC, CBCDIF ####[facility] [address] [place] [phone] Sodium [Moles/Vol] 141 136-144 mmol/L Normal 11-06-2019 [facility] (48751) Comment: Performed By: #### PT, CMP, MG1, PHOS, URIC, CBCDIF ####[facility] [place] [phone] Urea nitrogen [Mass/Vol] 34 9-24 mg/dL High 11-05 [facility] (12944) Comment: Performed By: #### PT, CMP, MG1, PHOS, URIC, CBCDIF ####[place] [address] [address] [place] [phone] citrated plt count on 2019-11-06 Citrated Plt Count 39 150-400 K/uL Low 11-06-2019 [facility] (42098) Comment: Result Comment: Result check ed and verified No clot detected. Platelet count confirmed by manual review of peripheral blood smear. Sodium Citrate Sample. Performed By: #### CITPLT, S LATESHA ####[place] [address] [address] [place] [address] [phone] cbc and differential on 2019-11-06 Abs Baso 0.00 <0.11 k/uL Normal 11-06-2019 [facility] (81428) Comment: Performed By: #### PT, CMP, MG1, PHOS, URIC, CBCDIF ####[facility] [place] [phone] Abs [place] 0.21 <0.87 k/uL Normal 11-06-2019 [facility] (78979) Comment: Performed By: #### PT, CMP, MG1, PHOS, URIC, CBCDIF ####[facility] [place] [phone] Abs Neut 8.97 1.45-7.50 k/uL High 11-06-2019 [facility] (58292) Comment: Performed By: #### PT, CMP, MG1, PHOS, URIC, CBCDIF ####[facility] [place], [place] [phone] Anisocytosis Ql (Bld) Present Normal 11-06-19 [facility] (42164) Comment: Performed By: #### PT, CMP, MG1, PHOS, URIC, CBCDIF ####[facility] [place], [place] [phone] Basophils/100 WBC (Bld) 0.0 % Normal 2019 [facility] (61280) Comment: Performed By: #### PT, CMP, MG1, PHOS, URIC, CBCDIF ####[place] [address] [address], [place] [phone] DTYPE Manual Diff Normal 11-06-2019 [facility] (90806) Comment: Performed By: #### PT, CMP, MG1, PHOS, URIC, CBCDIF ####[place] [address] [address] [place] [phone] Eosinophils (Bld) [#/Vol] 0.00 <0.46 k/uL Normal 10-13 [facility] (67065) Comment: Performed By: #### PT, CMP, MG1, PHOS, URIC, CBCDIF ####[facility] [place] [phone] Eosinophils/100 WBC (Bld) 0.0 % Normal 10-13 [facility] (44024) Comment: Performed By: #### PT, CMP, MG1, PHOS, URIC, CBCDIF ####[facility] [place], [place] [phone] Erythrocyte distribution 29.5 11.5-15.0 % High 11-05 [facility] width (RBC) [Ratio] [place] ([address]119) Comment: Performed By: #### PT, CMP, MG1, PHOS, URIC, CBCDIF ####[facility] [place], [place] [phone] Hematocrit (Bld) [Volume 23.6 39.0-51.0 % Low 11-05 [facility] fraction] (80607) Comment: Performed By: #### PT, CMP, MG1, PHOS, URIC, CBCDIF ####[place] [address] [place], [place] [phone] Hemoglobin (Bld) 6.9 13.0-17.0 g/dL Low 11-06-2019 [facility] [Mass/Vol] [place] ([address]166) Comment: Performed By: #### PT, CMP, MG1, PHOS, URIC, CBCDIF ####[place] [address] [place], [place] [phone] Lymphocytes (Bld) [#/Vol] 1.32 1.00-4.00 k/uL Normal 10-13 [facility] (00353) Comment: Performed By: #### PT, CMP, MG1, PHOS, URIC, CBCDIF ####[place] [address] [place], [place] [phone] Lymphocytes/100 WBC (Bld) 11.5 % Normal 10-13 [facility] (99778) Comment: Performed By: #### PT, CMP, MG1, PHOS, URIC, CBCDIF ####[place] [address] [place], [place] [phone] MCH (RBC) [Entitic mass] 24.5 26.0-34.0 pG Low 11-05 [facility] (26280) Comment: Performed By: #### PT, CMP, MG1, PHOS, URIC, CBCDIF ####[place] [address] [place], [place] [phone] MCHC (RBC) [Mass/Vol] 29.2 30.5-36.0 g/dL Low 11-06-19 20 [facility] (15101) Comment: Performed By: #### PT, CMP, MG1, PHOS, URIC, CBCDIF ####[facility] [address] [place], [place] [phone] MCV (RBC) [Entitic vol] 83.7 80.0-100.0 fL Normal 11-05 [facility] (60122) Comment: Performed By: #### PT, CMP, MG1, PHOS, URIC, CBCDIF ####[facility], [place] [phone] Stone% 3.5 % Normal 11-06-2019 [facility] (99851) Comment: Performed By: #### PT, CMP, MG1, PHOS, URIC, CBCDIF ####[facility] [place], [place] [phone] Monocytes/100 WBC (Bld) 1.8 % Normal 2019 [facility] (92347) Comment: Performed By: #### PT, CMP, MG1, PHOS, URIC, CBCDIF ####[facility], [place] [phone] Myelo% 5.3 % Normal 11-06-2019 [facility] (03380) Comment: Performed By: #### PT, CMP, MG1, PHOS, URIC, CBCDIF ####[facility], [place] [phone] Neutrophils/100 WBC (Bld) 77.9 % Normal 10-13 [facility] (67505) Comment: Performed By: #### PT, CMP, MG1, PHOS, URIC, CBCDIF ####[facility] [address] [place], [place] [phone] NRBCs 12 0 /100 WBC High 11-06-2019 [facility] (78530) Comment: Performed By: #### PT, CMP, MG1, PHOS, URIC, CBCDIF ####[facility] [address] [place], [place] [phone] Ovalocytes Few Normal 11-06-2019 [facility] (05397) Comment: Performed By: #### PT, CMP, MG1, PHOS, URIC, CBCDIF ####[facility] [place], [place] [phone] Platelet mean <<DO NOT REPORT>> 9.0-12.7 Normal 11-06-19 20 [facility] volume (Bld) [place] ([address]) [Entitic vol] Comment: Performed By: #### PT, CMP, MG1, PHOS, URIC, CBCDIF ####[facility] [place], [place] [phone] Platelets (Bld) Platelet estimate Normal 2019 [facility] [#/Vol] [facility] [place] (44230) Comment: Performed By: #### PT, CMP, MG1, PHOS, URIC, CBCDIF ####[facility] [place], [place] [phone] Platelets (Bld) [#/Vol] 52 150-400 k/uL Low 2019 [facility] (70210) Comment: Result Comment: Result check ed and verified No clot detected. Performed By: #### PT, CMP, MG1, PHOS, URIC, CBCDIF ####[facility] [address] [place], [place] [phone] Polychromasia Slight Normal 11-06-2019 [facility] (35428) Comment: Performed By: #### PT, CMP, MG1, PHOS, URIC, CBCDIF ####[facility] [address] [place], [place] [phone] RBC (Bld) [#/Vol] 2.82 4.20-6.00 m/uL Low 11-06-2019 [facility] (83007) Comment: Performed By: #### PT, CMP, MG1, PHOS, URIC, CBCDIF ####[facility] [place] [phone] RBC Fragments Few Normal 11-06-2019 [facility] (25637) Comment: Performed By: #### PT, CMP, MG1, PHOS, URIC, CBCDIF ####[place] [address] [place] [phone] Spherocytes Few Normal 11-06-2019 [facility] (16731) Comment: Performed By: #### PT, CMP, MG1, PHOS, URIC, CBCDIF ####[place] [address] [place] [phone] Target Cells Few Normal 11-06-2019 [facility] (58709) Comment: Performed By: #### PT, CMP, MG1, PHOS, URIC, CBCDIF ####[place] [address] [place] [phone] TSH Qn Present Normal 11-06-2019 [facility] (48391) Comment: Performed By: #### PT, CMP, MG1, PHOS, URIC, CBCDIF ####[facility] levelSt[place] [phone] WBC (Bld) [#/Vol] 11.51 3.70-11.00 k/uL High 11-06-2019 [facility] (54987) Comment: Performed By: #### PT, CMP, MG1, PHOS, URIC, CBCDIF ####[facility] [place] [phone] Abs Baso 0.00 <0.11 k/uL Normal 11-06-2019 [facility] (34085) Comment: Performed By: #### CBCDIF ## ##[facility] AveClevelStacey [place] [phone] Abs [place] 0.20 <0.87 k/uL Normal 11-06-2019 [facility] (30813) Comment: Performed By: #### CBCDIF ## ##[place] [address] [place], [place] [phone] Abs Neut 8.30 1.45-7.50 k/uL High 11-06-2019 [facility] (39874) Comment: Performed By: #### CBCDIF ## ##[place] [address] [place], [place] [phone] Anisocytosis Ql (Bld) Present Normal 11-06-19 [facility] (64766) Comment: Performed By: #### CBCDIF ## ##[place] [address] [place], [place] [phone] Basophils/100 WBC (Bld) 0.0 % Normal 2019 [facility] (79190) Comment: Performed By: #### CBCDIF ## ##[place] [address], [place] [phone] DTYPE Manual Diff Normal 11-06-2019 [facility] (65704) Comment: Performed By: #### CBCDIF ## ##[place] [address], [place] [phone] Eosinophils (Bld) [#/Vol] 0.00 <0.46 k/uL Normal 10-13 [facility] (36404) Comment: Performed By: #### CBCDIF ## ##[place] [address] [place], [place] [phone] Eosinophils/100 WBC (Bld) 0.0 % Normal 10-13 [facility] (01893) Comment: Performed By: #### CBCDIF ## ##[place] [address] [place], [place] [phone] Erythrocyte distribution 30.2 11.5-15.0 % High 11-05 [facility] width (RBC) [Ratio] [place] (98325) Comment: Performed By: #### CBCDIF ## ##[place] [address] [place], [place] [phone] Hematocrit (Bld) [Volume 25.5 39.0-51.0 % Low 11-05 [facility] fraction] (00607) Comment: Performed By: #### CBCDIF ## ##[place] [address] [place], [place] [phone] Hemoglobin (Bld) 7.4 13.0-17.0 g/dL Low 11-06-2019 [facility] [Mass/Vol] [place] (84109) Comment: Performed By: #### CBCDIF ## ##[address] [phone] Lymphocytes (Bld) [#/Vol] 1.18 1.00-4.00 k/uL Normal 10-13 [facility] (31903) Comment: Performed By: #### CBCDIF ## ##[place] [address] [place], [place] [phone] Lymphocytes/100 WBC (Bld) 10.5 % Normal 10-13 [facility] (01268) Comment: Performed By: #### CBCDIF ## ##[address] Av[address] [place], [place] [phone] MCH (RBC) [Entitic mass] 24.2 26.0-34.0 pG Low 11-05 [facility] (95844) Comment: Performed By: #### CBCDIF ## ##[place] [address] [place], [place] [phone] MCHC (RBC) [Mass/Vol] 29.0 30.5-36.0 g/dL Low 11-05- 20 [facility] (33517) Comment: Performed By: #### CBCDIF ## ##[place] [address] [place], [place] [phone] MCV (RBC) [Entitic vol] 83.3 80.0-100.0 fL Normal 11-05 [facility] (17949) Comment: Performed By: #### CBCDIF ## ##[place] [address]Cwestern reserve hospitalandGerm[place], [place] [phone] Stone% 6.1 % Normal 11-06-2019 [facility] (52027) Comment: Performed By: #### CBCDIF ## ##[place] [address] [place], [place] [phone] Monocytes/100 WBC (Bld) 1.8 % Normal 2019 [facility] (80940) Comment: Performed By: #### CBCDIF ## ##[place] [address] [place], [place] [phone] Myelo% 7.9 % Normal 11-06-2019 [facility] (98659) Comment: Performed By: #### CBCDIF ## ##[place] [address] [place], [place] [phone] Neutrophils/100 WBC (Bld) 73.7 % Normal 10-13 [facility] (06909) Comment: Performed By: #### CBCDIF ## ##[place] [address] AveClevelandGerm[place], [place] [phone] NRBCs 7 0 /100 WBC High 11-06-2019 [facility] (22422) Comment: Performed By: #### CBCDIF ## ##[place] [address] [facility] hospitalandGerm[place], [place] [phone] Ovalocytes Few Normal 11-06-2019 [facility] (27872) Comment: Performed By: #### CBCDIF ## ##[place] [address] [place], [place] [phone] Platelet mean <<DO NOT REPORT>> 9.0-12.7 Normal 11-06-19 [facility] volume (Bld) [facility] (64900) [Entitic vol] Comment: Performed By: #### CBCDIF ## ##[facility] [place], [place] [phone] Platelets (Bld) Platelet estimate Normal 2019 [facility] [#/Vol] decreased [place] (01359) Comment: Performed By: #### CBCDIF ## ##[place] [address] [place], [place] [phone] Platelets (Bld) [#/Vol] 58 150-400 k/uL Low 2019 [facility] (07936) Comment: Result Comment: Result check ed and verified No clot detected. Performed By: #### CBCDIF ## ##[place] [address] [place], [place] [phone] Polychromasia Slight Normal 11-06-2019 [facility] (65402) Comment: Performed By: #### CBCDIF ## ##[place] [address] [place], [place] [phone] RBC (Bld) [#/Vol] 3.06 4.20-6.00 m/uL Low 11-06-2019 [facility] (44678) Comment: Performed By: #### CBCDIF ## ##[facility] [place], [place] [phone] RBC Fragments Few Normal 11-06-2019 [facility] (10392) Comment: Performed By: #### CBCDIF ## ##[facility] [place], [place] [phone] Spherocytes Few Normal 11-06-2019 [facility] (27427) Comment: Performed By: #### CBCDIF ## ##[facility] [place], [place] [phone] TSH Qn Present Normal 11-06-2019 [facility] (54050) Comment: Performed By: #### CBCDIF ## ##[facility] [place], [place] [phone] WBC (Bld) [#/Vol] 11.26 3.70-11.00 k/uL High 11-06-2019 [facility] (83230) Comment: Performed By: #### CBCDIF ## ##[facility] [place], [place] [phone]- [phone] allied health on 31-10-24 ALLIED HEALTH HNO ID: [id number] Normal [facility] Author: Ligia Garg (Rn) JUNIE Wylie [place] ([id number]) Service: PICC Team Author Type: Registered Nurse Type: Allied Health Filed: 11/06/2019 11:58 AM Note Text: PATIENT EDUCATION TOPIC: PROCEDURE / SURGERY: Procedure/Surg savanna: midline PATIENT NAME: Tiana Martínez PATIENT LOCATION: [place] [address] READINESS TO LEARN COGNITIVE ABILITY: Alert and [...] Urate [Mass/Vol] 5.5 4.0-8.1 mg/dL Normal 11-05-2019 [facility] (98413) Comment: Performed By: #### CBC, CMP, URIC ####[place] [id number] [place], [place] [phone] type and screen on 2019-11-05 ABO/RH(D) O POSITIVE Normal 11-05-2019 [facility] (85583) Comment: Performed By: #### TSCR #### [facility] [address] [place], [place] [phone] therapy nt on 11-04 THERAPY NT HNO ID: [id number] Normal 11-05-2019 [facility] Author: Huy Brown PT [place] ([id number]) Service: Physical Therapy Author Type: Physical Therapist Type: Therapy (PT/OT/Speech/Resp) Filed: 11/05/2019 3:38 PM Note Text: PHYSICAL THERAPY MISSED VISIT SERVICE DATE: 11/05/2019 SERVICE TIME: 1536 to 1536 ROOM: [place] [address] Attempted Treatment. Patient not seen due to Declined(Having an important discussion over the phone.). Patient was having a discussion over care plan that this therapist did not want to disrupt. Physical t herapy will follow-up tomorrow 11/06/2019. SIGNATURE: Huy Brown PT PATIENT NAME: Tiana Martínez DATE: November 05, 2019 TIME: 3:37 PM THERAPY NT HNO ID: [id number] Normal 11-05-2019 [facility] Author: Huy Brown PT [place] ([id number]) Service: Physical Therapy Author Type: Physical Therapist Type: Therapy (PT/OT/Speech/Resp) Filed: 11/05/2019 11:01 AM Note Text: PHYSICAL THERAPY MISSED VISIT SERVICE DATE: 11/05/2019 SERVICE TIME: 1101 to 1101 ROOM: [place] [address] Attempted Evaluation. Patient not seen due to Another servic e at bedside(Patient in a meeting.). 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 Today's visit includes: patient and sonTiana TOPICS ADDRESSED: Coping/support Met with pt and son at to f/u on my conversation with the m yesterday re: GOC. Pt reports that he is going to initiate chemotherap y tomorrow. He said, I don't wanna just quit. He is willing to receive treatment if it won't decrease his quality of life. Son requested coordination for [facility] upon DC. Educated about t he process and CM/RN coordinating care for disposition planning. Son to call CM/RNSaud. PLAN: Communicate pertinent medical/psychosocial information to [facility] team, Continue follow up as needed and Provide emotio nal support to patient/family F/[facility] Feeder Pager: [phone] protime on PT Coag (PPP) [Time] 1.0 0.9-1.3 s Normal 0 [facility] (78683) Comment: Result Comment: Vitamin K An tagonist (VKA) Therapeutic Range: INR 2 to 3 (Target INR of 2.5) Note: For patients treated w ith VKA drugs, such as warfarin, the [place] [employer] 2012 Guideline recommends a therapeutic INR range of 2 to 3 (target INR of 2.5). This recommendation includes high-risk patients with antiphospholipid syndrome with previous arterial or venous thromboembolism, current-generation mechanical or bioprosthetic aortic heart valve replacement. Note: Patients with farm machinery set up mechanic al aortic valve replacement and additional risk factors for thromboembolic events (atrial fibrillation, previous thromboembolism, LV dysfunction, hypercoagulable conditions) or an older generation mecha nical AVR (i.e., ball in-Cage) or any mechanical MVR should have a INR therapeutic range of 2.5 to 3.5 (target INR of 3). Vitaliy GH, et al. Chest 2012 , 141:7S-47S Janet RA et al. [facility] 20 17, 70: 252-289 Performed By: #### PT, CBC, MG1, PHOS ####[facility] [place] [address] [phone] PT Coag (PPP) [Time] 10.4 9.7-13.0 sec Normal 11-04- 0 [facility] (07126) Comment: Performed By: #### PT, CBC, MG1, PHOS ####[facility] [address] [place], [place] [phone] progress on 2019-10 PROGRESS HNO ID: [id number] Normal 11-05-2019 [facility] Author: Matthew Puri [place] ([id number]) Service: Oncology Author Type: Physician Type: Progress [...] pending 10/31/19 1215 vte pharmacologic prophylaxis contraindicated (ri,va) 10/31/19 1215 pneumatic compression stockings (ri,va) 10/31/19 1215 activity - mobilize patient (ri,va) SIGNATURE: Skylar Seay MD PHD PGY-1 PATIENT NAME: Tiana medina DATE: 11/05/2019 TIME: 7:58 AM PAGER: [phone] Note: These recommendations are not final until staffed by max harris HEMATOLOGY/MEDICAL ONCOLOGY/[facility] STA FF: STAFF PHYSICIAN [...] to thrombocyt[place]. [place] [address] phosphorus on 11-04 Phosphate [Mass/Vol] 4.1 2.7-4.8 mg/dL Normal 0 [facility] (72552) Comment: Performed By: #### PT, CBC, MG1, PHOS ####[facility] [address] [place] [address] [phone] nursing prog on NURSING PROG HNO ID: [id number] Normal 11-05-19 [facility] Author: Cesilia Hernandez) JUNIE Ching [place] ([id number]) Service: Nursing Author Type: Registered Nurse Type: [...] TIME: 8:02 PM NURSING PROG HNO ID: [id number] Normal 11-05-[address] [place] [address] Author: Katina JasmineRn) JUNIE Holland [place] ([id number]) Service: ? Author Type: Registered Nurse Type: Nursing Progress Note Filed: 11/05/2019 5:26 AM Note Text: Nursing Progress Note Patient Name: Tiana Martínez Patient Location: [facility] [id number] Daily Note: 7919-6089 Tylenol given for pain 4/10 to R hip. Heart/lung s ounds WNL. Irregular HR on ascultation. Pt on telemetry, monitor review ed, patient in Afib HR 80-100. (81255) updated. 0500 MASD noted to scrotum, [facility] self applied. Pt noted wheezing/SOB, sating well on 2L NC. R T at bedside for PRN tx and scheduled mucomyst. AM labs drawn by laboratory apparatus glass grinder . This note was completed by: Katina Holland RN NURSING PROG HNO ID: [id number] Normal 11-05-19 [facility] Author: Ifrah (Rn) JUNIE Caicedo ([id number]) Service: Nursing Author Type: Registered Nurse Type: [...] * * *Final Report* * * Normal [facility] IVCON DATE OF EXAM: Nov 05 2019 8:33PM [place] ([id number]) QBM 0295 - MRI BRAIN WO/W IVCON [...] spine without extraosseous extensi on of neoplasm. Animal Groomer: PSCB Transcribe Date/Time: Nov 05 2019 8:57P Dictated by : SIMI KERNS MD This examination was interpreted and the report reviewed and electronically signed by: ZEE EVANS MD on Nov 05 2019 9:20PM EST [id number] magnesium on 11-04 Magnesium [Mass/Vol] 2.9 1.7-2.3 mg/dL High [facility] (44702) Comment: Performed By: #### PT, CBC, MG1, PHOS ####[place] [address] [phone] comp metabolic panel on 2019-11-05 Albumin [Mass/Vol] 3.1 3.9-4.9 g/dL Low 11-05-2019 [facility] (91355) Comment: Performed By: #### CBC, CMP, URIC ####[facility] [address] [place] [address] [phone] ALP [Catalytic activity/Vol] 140 38-113 U/L High 0 11-05-2019 [facility] (01305) Comment: Performed By: #### CBC, CMP, URIC ####[place] [address] [phone] ALT [Catalytic activity/Vol] 61 10-54 U/L High 0 11-05-2019 [facility] (46724) Comment: Performed By: #### CBC, CMP, URIC ####[place] [id number] [place] [address] [phone] Anion gap [Moles/Vol] 14 9-18 mmol/L Normal 11-05-19 [facility] (82336) Comment: Performed By: #### CBC, CMP, URIC ####[place] [address] [phone] AST [Catalytic activity/Vol] 207 14-40 U/L High 0 11-05-2019 [facility] (95942) Comment: Performed By: #### CBC, CMP, URIC ####[place] [address] [place] [address] [phone] Bilirubin [Mass/Vol] 0.5 0.2-1.3 mg/dL Normal 0 [facility] (10555) Comment: Performed By: #### CBC, CMP, URIC ####[place] [address] [address] [address] [phone] Calcium [Mass/Vol] 9.7 8.5-10.2 mg/dL Normal 11-05-2019 [facility] (85943) Comment: Performed By: #### CBC, CMP, URIC ####[place] [address] [phone] Chloride [Moles/Vol] 101 97-105 mmol/L Normal 0 [facility] (36738) Comment: Performed By: #### CBC, CMP, URIC ####[place] [address] [address] [address] [phone] CO2 [Moles/Vol] 28 22-30 mmol/L Normal 11-05-[address] [facility] (65337) Comment: Performed By: #### CBC, CMP, URIC ####[place] [address] [address] [address] [phone] Creatinine [Mass/Vol] 1.33 0.73-1.22 mg/dL High 11-05-19 20 [facility] (01052) Comment: Performed By: #### CBC, CMP, URIC ####[place] [address] [address] [place] [address] [phone] eGFR- Amer. >60 Normal 11-05-2019 [facility] (06197) Comment: Performed By: #### CBC, CMP, URIC ####[place] [address] [address] [place] [address] [phone] GFR/1.73 sq M predicted among 52 . Normal 11-05-2019 [facility] non-blacks MDRD (S/P/Bld) [Vol (14278) rate/Area] Comment: Result Comment: eGFR (Estima alejandrina [...] GFR. Performed By: #### CBC, CMP, URIC ####[facility] [address] [place] [address] [phone] Glucose [Mass/Vol] 181 74-99 mg/dL High 11-05-2019 [facility] (29468) Comment: Result Comment: The [place] [employer] (ADA) provides guidance for cutoff [...] for diagnosis of diabetes. Reference: Standards of [facility] Care in Diabetes 2016, [place] [employer]. Diabetes Care. 2016.39(Suppl 1). Performed By: #### CBC, CMP, URIC ####[facility] [address] [place] [address] [phone] Potassium [Moles/Vol] 3.5 3.7-5.1 mmol/L Low 11-05-19 [facility] (06808) Comment: Performed By: #### CBC, CMP, URIC ####[place] [address] [address] [place] [address] Protein [Mass/Vol] 5.4 6.3-8.0 g/dL Low 11-05-2019 [facility] (52429) Comment: Performed By: #### CBC, CMP, URIC ####[address] [place] [place] [address] Sodium [Moles/Vol] 143 136-144 mmol/L Normal 11-05-2019 [facility] (60297) Comment: Performed By: #### CBC, CMP, URIC ####[address] [place] [address] Urea nitrogen [Mass/Vol] 37 9-24 mg/dL High 11-04 [facility] (66752) Comment: Performed By: #### CBC, CMP, URIC ####[place] [address] cbc on 2019-11-05 Absolute nRBC 1.06 <0.01 k/uL High 11-05-2019 [facility] (88232) Comment: Performed By: #### CBC, CMP, URIC ####[place] [address] Erythrocyte distribution 29.8 11.5-15.0 % High 11-04 [facility] width (RBC) [Ratio] [place] (11829) Comment: Performed By: #### CBC, CMP, URIC ####[address] Ave[address] [place] [address] Hematocrit (Bld) [Volume 23.9 39.0-51.0 % Low 11-04 [facility] fraction] (72929) Comment: Performed By: #### CBC, CMP, URIC ####[address] [place] [address] Hemoglobin (Bld) 7.1 13.0-17.0 g/dL Low 11-05-2019 [facility] [Mass/Vol] [place] (41265) Comment: Performed By: #### CBC, CMP, URIC ####[address] [place] [address] MCH (RBC) [Entitic mass] 24.7 26.0-34.0 pG Low 11-04 [facility] (38920) Comment: Performed By: #### CBC, CMP, URIC ####[address] [place] [address] MCHC (RBC) [Mass/Vol] 29.7 30.5-36.0 g/dL Low 11-05-19 20 [facility] (84862) Comment: Performed By: #### CBC, CMP, URIC ####[place] [address] MCV (RBC) [Entitic vol] 83.0 80.0-100.0 fL Normal 11-04 [facility] (49802) Comment: Performed By: #### CBC, CMP, URIC ####[place] [address] [phone] Platelet mean <<DO NOT REPORT>> 9.0-12.7 Normal 11-05-19 20 [facility] volume (Bld) [place] ([address]) [Entitic vol] Comment: Performed By: #### CBC, CMP, URIC ####[address] [place] [address] [phone] Platelets (Bld) [#/Vol] 62 150-400 k/uL Low 2019 [facility] (18403) Comment: Result Comment: Result check ed and verified No clot detected. Performed By: #### CBC, CMP, URIC ####[address] [place] [address] RBC (Bld) [#/Vol] 2.88 4.20-6.00 m/uL Low 11-05-2019 C [facility] (06274) Comment: Performed By: #### CBC, CMP, URIC ####[place] [address] [address] [place] [address] [phone] WBC (Bld) [#/Vol] 11.14 3.70-11.00 k/uL High 11-05-2019 [facility] (14474) Comment: Performed By: #### CBC, CMP, URIC ####[place] [address] [address] [place] [address] [phone] Absolute nRBC Unable to report <0.01 Normal 0 [facility] (53409) Comment: Performed By: #### PT, CBC, MG1, PHOS ####[address] [place] [address] Erythrocyte Unable to 11.5-15.0 Normal 11-05-2019 [facility] distribution width report [facility] (90143) (RBC) [Ratio] Comment: Performed By: #### PT, CBC, MG1, PHOS ####[address] [place] [address] [phone] Hematocrit (Bld) Unable to report 39.0-51.0 Normal 2019 [facility] [Volume fraction] Cl maricel (17893) Comment: Performed By: #### PT, CBC, MG1, PHOS ####[place] [address] [address] [place] [address] Hemoglobin (Bld) Unable to report 13.0-17.0 Normal 2019 [facility] [Mass/Vol] [place] ([address]84) Comment: Performed By: #### PT, CBC, MG1, PHOS ####[place] [id number] [place] [address] [phone] MCH (RBC) [Entitic Unable to report 26.0-34.0 Normal 10-13 [facility] mass] [place] ([address]346) Comment: Performed By: #### PT, CBC, MG1, PHOS ####[facility] [place] [address] MCHC (RBC) Unable to report 30.5-36.0 Normal 11-05-2019 [facility] [Mass/Vol] [place] ([address]49) Comment: Performed By: #### PT, CBC, MG1, PHOS ####[place] [id number] [place] [address] MCV (RBC) [Entitic Unable to report 80.0-100.0 Normal [facility] vol] [place] (35960) Comment: Performed By: #### PT, CBC, MG1, PHOS ####[place] [address] [address] [place] [address] Platelet mean Unable to report 9.0-12.7 Normal 0 [facility] volume (Bld) [place] ([address]) [Entitic vol] Comment: Performed By: #### PT, CBC, MG1, PHOS ####[address] [place] [address] Platelets (Bld) Unable to report 150-400 Normal 020 [facility] [#/Vol] [place] (86836) Comment: Performed By: #### PT, CBC, MG1, PHOS ####[place] [phone] [place] [address] RBC (Bld) [#/Vol] Unable to report 4.20-6.00 Normal 11-04 [facility] (25206) Comment: Performed By: #### PT, CBC, MG1, PHOS ####[place] [address] [place] [address] WBC (Bld) [#/Vol] Unable to report 3.70-11.00 Normal - [facility] (79434) Comment: Result Comment: Account Cred ited Unable to assay. Clotted spe cimen. Called to A.L G70 0833 6.24.20 L.M Performed By: #### PT, CBC, MG1, PHOS ####[facility] [address] [place] [address] [phone] allied health on 01-11-23 ALLIED HEALTH HNO ID: [id number] Normal 020 [facility] Author: Marleny (Rt) Rei Castro [place] ([id number]) Service: Radiology Author Type: County Superintendent Of Schools Type: Allied Health Filed: 11/05/2019 8:18 PM [...] Cane, Wheelchair, Crutches, etc.)? Inpatient: Screened on ri oor PATIENT GENDER DATA: Male PATIENT RELEVANT IMPLANT DATA REVIEWED: Yes RADIOLOGY DEPARTMENT: MR; Exam(s) Completed: Head: Routine B rain PERIPHERAL IV DATA: Inpatient: see LDA documentation SIGNED BY: Marleny Pierson [facility] November 05, 2019 8:18 PM therapy nt on 11-03 THERAPY NT HNO ID: [id number] Normal 11-04-2019 [facility] Author: Huy JasminePtMARCY Lima ([id number]) Service: Physical Therapy Author Type: Physical Therapist Type: Therapy (PT/OT/Speech/Resp) Filed: 11/04/2019 1:20 PM Note Text: PHYSICAL THERAPY MISSED VISIT SERVICE DATE: 11/04/2019 SERVICE TIME: 1320 to 1320 ROOM: [place] [address] Attempted Evaluation. Patient not seen due to Test/Procedure . Physical therapy will continue to monitor this patient. SIGNATURE: Huy Brown PT PATIENT NAME: Tiana Martínez DATE: November 04, 2019 TIME: 1:20 PM surgical pathology on 2019-11-04 SURGICAL Specimen originated from [facility] Normal 11-04-2019 [place] PATHOLOGY Specimen #: [id number] [facility] Submitting Physician: LIZANDRO CRUZ M.D. [place] ([id number]) FINAL DIAGNOSIS Lung, left main stem, endobronchial [...] in-situ hybridization tests have been determined by [facility]'s Tra [facility] (RT-PLMI) in a manner consistent with CLIA requirements. One or more of these tests have not been cleared or approved by the FDA. [facility] is regula alejandrina under CLIA as qualified [...] in one cassette. Gross examination performed at [facility], [address] [place] [address] JT 11/04/2019 8:04:03 PM Date of Report: 11/06/2019 Date of Procedure: 11/04/2019 Date of Receipt: 11/04/2019 Submitted by: LIZANDRO CRUZ M.D. Additional Physician(s): SHAHEEN ROSENBERG Location: PULMONARY MAIN Diagnostic interpretation performed at [place] [address]. 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 He offered to [...] to patient 's family. Signature: Jay Tejada [facility] Print Line Feeder Pager: [phone] Date: November 04, 2019 Time: 10:58 AM protime on PT Coag (PPP) [Time] 10.4 9.7-13.0 sec Normal 0 [facility] (75145) Comment: Performed By: #### CBC, PT, MG1, PHOS ####[facility] [place] [address] [phone] PT Coag (PPP) [Time] 1.0 0.9-1.3 s Normal 0 [facility] (73521) Comment: Result Comment: Vitamin K An tagonist (VKA) Therapeutic Range: INR 2 to 3 (Target INR of 2.5) Note: For patients treated w ith VKA drugs, such as warfarin, the [place] [employer] 2012 Guideline recommends a therapeutic INR range of 2 to 3 (target INR of 2.5). This recommendation includes high-risk patients with antiphospholipid syndrome with previous arterial or venous thromboembolism, current-generation mechanical or bioprosthetic aortic heart valve replacement. Note: Patients with farm machinery set up mechanic al aortic valve replacement and additional risk factors for thromboembolic events (atrial fibrillation, previous thromboembolism, LV dysfunction, hypercoagulable conditions) or an older generation mecha nical AVR (i.e., ball in-Cage) or any mechanical MVR should have a INR therapeutic range of 2.5 to 3.5 (target INR of 3). Vitaliy SEALS, et al. Chest 2012 , 141:7S-47S Janet MCNEAL et al. [facility] 20 , 70: 252-289 Performed By: #### CBC, PT, MG1, PHOS ####[facility] [address] [place], [place] [address] [phone] progress on 2019-10 PROGRESS HNO ID: [id number] Normal 11-04-2019 [facility] Author: Lizandro Lock ([id number]) Service: Pulmonary Disease Author Type: Physician Type: [...] 04, 2019 5:03 PM PROGRESS HNO ID: [id number] Normal 11-04-2019 [facility] Author: Matthew Lock ([id number]) Service: Oncology Author Type: Physician Type: Progress [...] 50 850 1360 1668 ? Output (ml) 376 095 3400 1275 225 Net (ml) -902 300 -1440 [...] pending 10/31/19 1215 vte pharmacologic prophylaxis contraindicated (ri,va) 10/31/19 1215 pneumatic compression stockings (ri,va) 10/31/19 1215 activity - mobilize patient ([place]) SIGNATURE: Skylar Seay MD PHD PGY-1 PATIENT NAME: Tiana medina DATE: 11/04/2019 TIME: 7:58 AM PAGER: [phone] Note: These recommendations are not final until staffed by max harris HEMATOLOGY/MEDICAL ONCOLOGY/[facility] STA FF: STAFF PHYSICIAN [...] [place] [address] phosphorus on 11-03 Phosphate [Mass/Vol] 3.1 2.7-4.8 mg/dL Normal 0 [facility] (01032) Comment: Performed By: #### CBC, PT, MG1, PHOS ####[facility] [address] [place] [address] [phone] magnesium on 2019-11-03 Magnesium [Mass/Vol] 2.9 1.7-2.3 mg/dL High 0 [facility] (79457) Comment: Performed By: #### CBC, PT, MG1, PHOS ####[facility] [address] [place] [address] [phone] cytology on 2019-10 CYTOLOGY Specimen originated from [facility] Normal 11-04-2019 [place] Specimen #: [id number] Clinic Submitting Physician: LIZANDRO CRUZ M.D. [place] SPECIMEN SUBMITTED ( 59700) A: BRONCHIAL, #21 SUPERTRAX,TBNA,LEFT MAINSTEM MASS FINE [...] in-situ hybridization tests have been determined by [facility]'s [place] [facility] (RT-PLMS) in a manner consistent with CLIA requirements. One or more of these tests have not been cleared or approved by the FDA. -[facility] is regula alejandrina under CLIA as qualified [...] discrete evaluation episode. Intra-procedural assessment performed at [facility], [facility] [place] [address] GROSS DESCRIPTION A: 30cc clear pink CytoLyt with particles and 8 smears (4 Di ff Quik and 4 pap stained) RPMI received. Hold for FLOW STAINS A: BRONCHIAL, #21 SUPERTRAX,TBNA,LEFT MAINSTEM MASS FINE NEE DLE ASPIRATE (THINPREP, SMEARS AND CELL BLOCK) SMEARS RECEIVED x 8, THIN PREP Non-Wagon Washer, CELL BLOCK, H&E, Ini tial, CYTOKERATIN AE1&3, CD56, TTF1, CHROMOGRANIN, SYNAPTOPHYSIN, INSM1 Date of Report: 11/05/2019 Date of Procedure: 11/04/2019 Date of Receipt: 11/04/2019 Submitted by: LIZANDRO CRUZ M.D. Additional Physician(s): SHAHEEN ROSENBERG Location: PULMONARY MAIN Diagnostic interpretation performed at [facility], [address] [place] [address]. CLIA Number: [id number] cbc on 2019-11-04 Absolute nRBC 0.96 <0.01 k/uL High 11-04-2019 [facility] (40918) Comment: Performed By: #### CBC ####C [facility] [address] [place], [place] [phone] Erythrocyte distribution 29.9 11.5-15.0 % High 11-03 [facility] width (RBC) [Ratio] [place] (86589) Comment: Performed By: #### CBC ####C [address] [place], [place] [phone] Hematocrit (Bld) [Volume 27.9 39.0-51.0 % Low 11-03 [facility] fraction] (42966) Comment: Performed By: #### CBC ####C [address] [phone] Hemoglobin (Bld) 7.9 13.0-17.0 g/dL Low 11-04-2019 [facility] [Mass/Vol] [place] (72656) Comment: Performed By: #### CBC ####C [address] [phone] MCH (RBC) [Entitic mass] 23.6 26.0-34.0 pG Low 11-03 [facility] (23317) Comment: Performed By: #### CBC ####C [place] [phone] MCHC (RBC) [Mass/Vol] 28.3 30.5-36.0 g/dL Low 11-04-19 20 [facility] (25151) Comment: Performed By: #### CBC ####C [address] [phone] MCV (RBC) [Entitic vol] 83.3 80.0-100.0 fL Normal 11-03 [facility] (55343) Comment: Performed By: #### CBC ####C [address] [phone] Platelet mean <<DO NOT REPORT>> 9.0-12.7 Normal 11-04-19 20 [facility] volume (Bld) Roderick edwards (99877) [Entitic vol] Comment: Performed By: #### CBC ####C [address] [phone] Platelets (Bld) [#/Vol] 87 150-400 k/uL Low 2019 [facility] (03506) Comment: Result Comment: Result check ed and verified No clot detected. Performed By: #### CBC ####C [place] [phone] RBC (Bld) [#/Vol] 3.35 4.20-6.00 m/uL Low 11-04-2019 [facility] (28791) Comment: Performed By: #### CBC ####C [place] [phone] WBC (Bld) [#/Vol] 10.71 3.70-11.00 k/uL Normal 11-04-2019 [facility] (61669) Comment: Performed By: #### CBC ####C [place] [phone] Absolute nRBC 1.00 <0.01 k/uL High 11-04-2019 [facility] (83079) Comment: Performed By: #### CBC, PT, MG1, PHOS ####[place] [address] [phone] Erythrocyte distribution 29.7 11.5-15.0 % High 11-03 [facility] width (RBC) [Ratio] [place] (35044) Comment: Performed By: #### CBC, PT, MG1, PHOS ####[address] [address] [phone] Hematocrit (Bld) [Volume 26.0 39.0-51.0 % Low 11-03 [facility] fraction] (14562) Comment: Performed By: #### CBC, PT, MG1, PHOS ####[address] [place] [address] [phone] Hemoglobin (Bld) 7.5 13.0-17.0 g/dL Low 11-04-2019 [facility] [Mass/Vol] [place] (88629) Comment: Performed By: #### CBC, PT, MG1, PHOS ####[place] [address] [address] [place] [address] MCH (RBC) [Entitic mass] 24.0 26.0-34.0 pG Low 11-03 [facility] (09310) Comment: Performed By: #### CBC, PT, MG1, PHOS ####[place] [address] [address] [place] [address] MCHC (RBC) [Mass/Vol] 28.8 30.5-36.0 g/dL Low 11-04-19 20 [facility] (62683) Comment: Performed By: #### CBC, PT, MG1, PHOS ####[address] [place] [address] [phone] MCV (RBC) [Entitic vol] 83.3 80.0-100.0 fL Normal 11-03 [facility] (84247) Comment: Performed By: #### CBC, PT, MG1, PHOS ####[place] [address] [phone] Platelet mean <<DO NOT REPORT>> 9.0-12.7 Normal 11-04-19 [facility] volume (Bld) [place] ([address]10) [Entitic vol] Comment: Performed By: #### CBC, PT, MG1, PHOS ####[address] [place] [address] [phone] Platelets (Bld) [#/Vol] 99 150-400 k/uL Low 2019 [facility] (24484) Comment: Result Comment: Result check ed and verified No clot detected. Performed By: #### CBC, PT, MG1, PHOS ####[address] [place] [address] RBC (Bld) [#/Vol] 3.12 4.20-6.00 m/uL Low 11-04-2019 [facility] (59864) Comment: Performed By: #### CBC, PT, MG1, PHOS ####[facility] [address] [place], [place] [address] [phone] WBC (Bld) [#/Vol] 11.16 3.70-11.00 k/uL High 11-04-2019 [facility] (84409) Comment: Performed By: #### CBC, PT, MG1, PHOS ####[facility] [address] [place], [place] [phone] anes post on 11-03 ANES POST HNO ID: [id number] Normal 11-04-2019 [facility] Author: Meghana Fabian [place] ([id number]) Service: Anesthesiology Author Type: Anesthesiologist Type: Anesthesia [...] 04, 2019 TIME: 4:23 PM PAGER/CONTACT #: [phone] xr chest 1v frontal port on 2019-11-03 XR CHEST 1V * * *Final Report* * * Normal 11-02 [facility] FRONTAL PORT DATE OF EXAM: Nov 03 2019 8:24AM [place] (59362) YENY 5376 - XR CHEST 1V FRONTAL [...] is atherosclerotic. Other: . IMPRESSION: See result. Animal Groomer: SCOOBY Transcribe Date/Time: Nov 03 2019 9:45A Dictated by : KATIE LUNA MD This examination was interpreted and the report reviewed and electronically signed by: KATIE LUNA MD on Nov 03 2019 9:47AM EST [id number] us chest effusion survey on 2019-11-03 US CHEST * * *Final Report* * * Normal 020 [facility] EFFUSION SURVEY DATE OF EXAM: Nov 03 2019 1:26PM [place] (08496) [facility] 1234 [...] Depth to mid fluid collection: 4.4 cm Animal Groomer: SCOOBY Transcribe Date/Time: Nov 03 2019 1:40P Dictated by : NAYELI MONTALVO MD This examination was interpreted and the report reviewed and electronically signed by: NAYELI MONTALVO MD on Nov 03 2019 1:42PM EST [id number] therapy nt on 11-02 THERAPY NT HNO ID: [id number] Normal 11-03-2019 [facility] Author: Jamarcus JasminePt) Vannesa Lock ([id number]) Service: Physical Therapy Author Type: Physical Therapist Type: Therapy (PT/OT/Speech/Resp) Filed: 11/03/2019 10:09 AM Note Text: PHYSICAL THERAPY MISSED VISIT SERVICE DATE: 11/03/2019 SERVICE TIME: 1006 to 1006 ROOM: [place] [address] ([facility] Nuclear Medicine) Attempted Evaluation. Patient not seen due to Test/Procedure . Pt with AMET overnight, now off floor. PT to follow up as able / appropri ate. SIGNATURE: Jamarcus Granado PT PATIENT NAME: Tiana Martínez DATE: November 03, 2019 TIME: 10:09 AM reticulocyte on Abs Retic 0.117 0.0180-0.1000 M/uL High 11-03-2019 [facility] (20270) Comment: Performed By: #### CBC, RETI C ####[facility] [address] Ave[place], [place] [phone] Retic% 3.7 0.4-2.0 % High 11-02-2019 [facility] (24567) Comment: Performed By: #### CBC, RETI C ####[facility] Ave[address] [place], [place] [phone] protime on PT Coag (PPP) [Time] 1.0 0.9-1.3 s Normal 0 [facility] (84388) Comment: Result Comment: Vitamin K An tagonist (VKA) Therapeutic Range: INR 2 to 3 (Target INR of 2.5) Note: For patients treated w ith VKA drugs, such as warfarin, the [place] [employer] 2012 Guideline recommends a therapeutic INR range of 2 to 3 (target INR of 2.5). This recommendation includes high-risk patients with antiphospholipid syndrome with previous arterial or venous thromboembolism, current-generation mechanical or bioprosthetic aortic heart valve replacement. Note: Patients with farm machinery set up mechanic al aortic valve replacement and additional risk factors for thromboembolic events (atrial fibrillation, previous thromboembolism, LV dysfunction, hypercoagulable conditions) or an older generation mecha nical AVR (i.e., ball in-Cage) or any mechanical MVR should have a INR therapeutic range of 2.5 to 3.5 (target INR of 3). Vitaliy GH, et al. Chest 2012 , 141:7S-47S Janet RA, et al. [facility] 20 17, 70: 252-289 Performed By: #### PT, CBC, BMP, MG1, PHOS ####[facility] [address] [place], [place] [phone] PT Coag (PPP) [Time] 10.4 9.7-13.0 sec Normal 0 [facility] (41839) Comment: Performed By: #### PT, CBC, BMP, MG1, PHOS ####[facility] [address] [place], [place] [phone] progress on 2019-10 PROGRESS HNO ID: [id number] Normal 11-03-2019 [facility] Author: Skylar Sharif (Res) MD Dawood [place] ([id number]) Service: Oncology Author Type: Resident Type: Progress [...] (ml) 50 850 1360 ? Output (ml) 077 223 9496 200 Net (ml) -902 300 -1440 -200 [...] pending 10/31/19 1215 vte pharmacologic prophylaxis contraindicated (ri,va) 10/31/19 1215 pneumatic compression stockings ([place], [place]) 10/31/19 1215 activity - mobilize patient ([place]) SIGNATURE: Skylar Seay MD PHD PGY-1 PATIENT NAME: Tiana medina DATE: 11/03/2019 TIME: 7:58 AM PAGER: [phone] Note: These recommendations are not final until staffed by max GUTIÉRREZ HNO ID: [id number] [place] 11-03-2019 [facility] Author: Simi JasmineMercy HealthRei Rivera [place] (85228) Service: Nuclear Medicine Author Type: County Superintendent Of Schools Type: Progress Notes Filed: 11/03/2019 9:01 AM [...] unstable renal function, e.g. those with ac [place] kidney injury, the eGFR may not accurately [...] care on PLAN OF CARE HNO ID: [id number] Normal 11-03-19 20 [facility] Author: Levy (Mckenna) Yadira Lock (76341) Service: Oncology Author Type: Resident Type: Plan [...] [Mass/Vol] 3.6 2.7-4.8 mg/dL Normal 0 [facility] (78519) Comment: Performed By: #### PT, CBC, BMP, MG1, PHOS ####[facility] [address] [place], [place] [phone] nursing prog on NURSING HNO ID: [id number] [place] 11-03-2019 [facility] Author: Clau JasmineRn) [facility] Service: Jovan Adams [facility] Author Type: Registered Nurse ([id number]) Type: Nursing Progress Note Filed: 11/04/2019 2:17 AM Note Text: Nursing Progress Note Patient Name: Tiana Martínez Patient Location: [place] [address]/[place] [address] Daily Note: 2100 2 units platelets administered per order. No s/sx trans fusion reaction. This note was completed by: Clau Soriano RN NURSING HNO ID: [id number] [place] 11-03-2019 [facility] Author: Trina JasmineRn) [facility] Service: Jovan yo Author Type: Registered Nurse ([id number]) Type: Nursing Progress Note Filed: 11/03/2019 5:11 PM Note Text: This RN instructed Katie RN on pt having bronch tomorrow . Pt not on blood thinner. Verbalized understanding of said instr uctions. 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 Animal Groomer: SCOOBY Transcribe Date/Time: Nov 03 2019 10:22A Dictated by : REMI GRAYSON MD This examination was interpreted and the report reviewed and electronically signed by: REMI GRAYSON MD on Nov 03 2019 10:52AM EST [id number] medical edwin on MEDICAL EDWIN HNO ID: [id number] Normal 11-03-19 [facility] Author: Bryant Lock ([id number]) Service: Anesthesiology Author Type: Anesthesiologist Type: Chg [...] 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 [phone] - COPD (chronic obstructive pulmonary disease) (HCC) [...] Laterality Date - COLONOSCOP W/ OR W/O [facility] SPEC 06/14/07 [facility] inpt AIRWAY HISTORY Not available Difficult [...] November 03, 2019 TIME: 2:02 AM PAGER: [phone] magnesium on 2019-0 11-02 Magnesium [Mass/Vol] 2.5 1.7-2.3 mg/dL High 0 [facility] (15855) Comment: Performed By: #### PT, CBC, BMP, MG1, PHOS ####[facility] [place], [place] [phone] intermed rapid covid on 2019-11-03 COVID 19 Result Negative for Negative for Normal 11-03-19 20 [facility] INDUSTRIAL MACHINE SYSTEM TECHNICIAN COVID19 (SARS COVID19 (SARS Cl maricel (05443) CoV2) by PCR. CoV2) by PCR. Comment: Result Comment: This test wa s developed and its performance characteristics determined by [facility]'s [facility] [place]. This test has been authorized by FDA [...] 12, 2019. Performed By: #### ITCOVD ## ##[facility] [address] [place], [place] [phone] COVID 19 Source INDUSTRIAL MACHINE SYSTEM TECHNICIAN Nasopharyngeal Swab Normal 0 11-03-2019 [facility] (23239) Comment: Performed By: #### ITCOVD ## ##[facility] [place], [place] [phone] ecg complete on ECG COMPLETE NAME : TIANA MARTÍNEZ 11-03-19 [facility] PID : [id number] Bladimir evans ([id number]) : 1940 Gender : Male Race : ORD : [id number] Procedure Date : Nov 03 2019 00:39:07 Edit Date : Nov 04 2019 21:25:23 Diagnosis:ATRIAL FIBRILLATION WITH RAPID VENTRICULAR RESPONS E NONSPECIFIC T WAVE ABNORMALITY ABNORMAL ECG Confirmed by LEONA KIM M.D. ([id number]) on 11/04/2019 9:22:56 PM Ventricular Rate : 113 BPM QRS Duration : 94 ms Q-T Interval : 292 ms QTC Calculation(Bazett) : 400 ms R [place] : 47 degrees T [place] : 63 degrees Test Reason : AMET Location : 170 : [facility]70[facility] Overread By : LEONA KIM M.D. Edited By : LEONA KIM M.D. 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 [id number] - COPD (chronic obstructive pulmonary disease) (HCC) [...] Care and Sleep Medicine cnpn [facility] 2019[facility]) [facility] 11-03-2019 [place] Kate TIANA MARTÍNEZ ([id number]) 1940 [facility] Date Time Provider Department (37395) 11/03/19 CARMELO ROSEN (RN) RADN During your [...] [place] - Fully Assessed 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 [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] Cmt: Questions Prescriptions as of 11/03/2019 Sig: [...] Absolute nRBC 0.86 <0.01 k/uL High 11-03-2019 [facility] (05619) Comment: Performed By: #### CBC ####C [place] [phone] Erythrocyte distribution 29.3 11.5-15.0 % High 11-02 [facility] width (RBC) [Ratio] [place] (68349) Comment: Performed By: #### CBC ####C [address] [phone] Hematocrit (Bld) [Volume 25.8 39.0-51.0 % Low 11-02 [facility] fraction] (48052) Comment: Performed By: #### CBC ####C [address] [phone]- [phone] Hemoglobin (Bld) 7.7 13.0-17.0 g/dL Low 11-03-2019 [facility] [Mass/Vol] [place] (08232) Comment: Performed By: #### CBC ####C [address] [phone]- [phone] MCH (RBC) [Entitic mass] 24.1 26.0-34.0 pG Low 11-02 [facility] (70526) Comment: Performed By: #### CBC ####C [address] [phone]- [phone] MCHC (RBC) [Mass/Vol] 29.8 30.5-36.0 g/dL Low 11-03-19 20 [facility] (51430) Comment: Performed By: #### CBC ####C [place] [phone] MCV (RBC) [Entitic vol] 80.6 80.0-100.0 fL Normal 11-02 [facility] (38096) Comment: Performed By: #### CBC ####C [address] [phone]- [phone] Platelet mean <<DO NOT REPORT>> 9.0-12.7 Normal 11-03-19 20 [facility] volume (Bld) [place] ([address]016) [Entitic vol] Comment: Performed By: #### CBC ####C [address] [phone] Platelets (Bld) [#/Vol] 31 150-400 k/uL Low 2019 [facility] (72581) Comment: Result Comment: Result check ed and verified No clot detected. Performed By: #### CBC ####C [address] [phone]- [phone] RBC (Bld) [#/Vol] 3.20 4.20-6.00 m/uL Low 11-03-2019 [facility] (46982) Comment: Performed By: #### CBC ####C [address] [phone]- [phone] WBC (Bld) [#/Vol] 9.85 3.70-11.00 k/uL Normal 11-03-2019 [facility] (62973) Comment: Performed By: #### CBC ####C [address] [id number] [phone] Absolute nRBC 0.83 <0.01 k/uL High 11-03-2019 [facility] (12646) Comment: Performed By: #### PT, CBC, BMP, MG1, PHOS ####[address] [phone] Erythrocyte distribution 29.0 11.5-15.0 % High 11-02 [facility] width (RBC) [Ratio] [place] (87941) Comment: Performed By: #### PT, CBC, BMP, MG1, PHOS ####[place] [address] [address], [place] [phone] Hematocrit (Bld) [Volume 26.6 39.0-51.0 % Low 11-02 [facility] fraction] (60854) Comment: Performed By: #### PT, CBC, BMP, MG1, PHOS ####[place] [address] [address] [place], [place] [phone] Hemoglobin (Bld) 7.8 13.0-17.0 g/dL Low 11-03-2019 [facility] [Mass/Vol] [place] (31601) Comment: Performed By: #### PT, CBC, BMP, MG1, PHOS ####[place] [address] [address] [place] [phone] MCH (RBC) [Entitic mass] 23.7 26.0-34.0 pG Low 11-02 [facility] (12920) Comment: Performed By: #### PT, CBC, BMP, MG1, PHOS ####[place] [address] [address] [place], [place] [phone] MCHC (RBC) [Mass/Vol] 29.3 30.5-36.0 g/dL Low 11-03-19 20 [facility] (11773) Comment: Performed By: #### PT, CBC, BMP, MG1, PHOS ####[place] [address] [address] [place], [place] [phone] MCV (RBC) [Entitic vol] 80.9 80.0-100.0 fL Normal 11-02 [facility] (00775) Comment: Performed By: #### PT, CBC, BMP, MG1, PHOS ####[place] [address] [address] [place], [place] [phone] Platelet mean <<DO NOT REPORT>> 9.0-12.7 Normal 11-03-19 20 [facility] volume (Bld) [place] (96155) [Entitic vol] Comment: Performed By: #### PT, CBC, BMP, MG1, PHOS ####[facility] [place], [place] [phone] Platelets (Bld) [#/Vol] 33 150-400 k/uL Low 2019 [facility] (11504) Comment: Result Comment: Result check ed and verified No clot detected. Performed By: #### PT, CBC, BMP, MG1, PHOS ####[facility] [place], [place] [phone] RBC (Bld) [#/Vol] 3.29 4.20-6.00 m/uL Low 11-03-2019 [facility] (01350) Comment: Performed By: #### PT, CBC, BMP, MG1, PHOS ####[facility] [place], [place] [phone] WBC (Bld) [#/Vol] 10.08 3.70-11.00 k/uL Normal 11-03-2019 [facility] (56026) Comment: Performed By: #### PT, CBC, BMP, MG1, PHOS ####[facility] [place], [place] [phone] Absolute nRBC 0.96 <0.01 k/uL High 11-03-2019 [facility] (64990) Comment: Performed By: #### CBC, RETI C ####[facility] AveClevelandGerm[place], [place] [phone] Comment Slight Normal 11-03-2019 [facility] (90326) Comment: Result Comment: Polychromasi a Few RBC Fragments Few Ovalocytes Performed By: #### CBC, RETI C ####[facility] AveClevelandGerm[place], [place] [phone]- [phone] Erythrocyte distribution 28.9 11.5-15.0 % High 11-02 [facility] width (RBC) [Ratio] [place] (66491) Comment: Performed By: #### CBC, RETI C ####[place] [address] [address] [place], [place] [phone]- [phone] Hematocrit (Bld) [Volume 25.9 39.0-51.0 % Low 11-02 [facility] fraction] (06182) Comment: Performed By: #### CBC, RETI C ####[address] [place] [place], [place] [phone]- [phone] Hemoglobin (Bld) 7.7 13.0-17.0 g/dL Low 11-03-2019 [facility] [Mass/Vol] [place] (70925) Comment: Performed By: #### CBC, RETI C ####[address] [place] [place], [place] [phone]- [phone] MCH (RBC) [Entitic mass] 24.1 26.0-34.0 pG Low 11-02 [facility] (61482) Comment: Performed By: #### CBC, RETI C ####[address] [place] [place], [place] [phone]- [phone] MCHC (RBC) [Mass/Vol] 29.7 30.5-36.0 g/dL Low 11-03-19 20 [facility] (21562) Comment: Performed By: #### CBC, RETI C ####[address] [place] [place], [place] [phone]- [phone] MCV (RBC) [Entitic vol] 80.9 80.0-100.0 fL Normal 11-02 [facility] (63500) Comment: Performed By: #### CBC, RETI C ####[address] [place], [place] [phone]- [phone] Platelet mean <<DO NOT REPORT>> 9.0-12.7 Normal 11-03-19 20 [facility] volume (Bld) [place] (55168) [Entitic vol] Comment: Performed By: #### CBC, RETI C ####[place] [address] [address] [place], [place] [phone] Platelets (Bld) [#/Vol] 35 150-400 k/uL Low 2019 [facility] (08751) Comment: Result Comment: Result check ed and verified No clot detected. Performed By: #### CBC, RETI C ####[address] [place], [place] [phone] RBC (Bld) [#/Vol] 3.20 4.20-6.00 m/uL Low 11-03-2019 [facility] (49182) Comment: Performed By: #### CBC, RETI C ####[place] [address] [address] [place], [place] [phone] Review Done Normal 11-03-2019 [facility] (03873) Comment: Performed By: #### CBC, RETI C ####[address] [phone]- [phone] WBC (Bld) [#/Vol] 10.56 3.70-11.00 k/uL Normal 11-03-2019 [facility] (55751) Comment: Performed By: #### CBC, RETI C ####[address] [phone]- [phone] case mgt init asses on 2019-11-03 CASE MGT INIT HNO ID: [id number] Normal 020 [facility] Author: Saud (Rn) Carlos Bourne RN [place] (10225) Service: Care Management Author Type: Registered Nurse Type: Care Mgt Initial Assessment Filed: 11/03/2019 2:50 PM Note Text: CARE MANAGEMENT: ASSESSMENT AND DISCHARGE PLAN SERVICE DATE: November 03, 2019 SERVICE TIME: 2:45 PM PRIMARY CARE PHYSICIAN: Kevon Harrell MD ADMISSION STATUS: Inpatient Needs Prior to Discharge: Ready for Discharge MEDICAL: MEDICARE A AND B Patient/Child Care Coordinator Stated Goals: To have reduction in sy [...] Current Advance Directive: Health Care Power of Typing Checker In Chart: No Machine [employer] Attempted to Assist with AD Completion: Yes [...] Patient Currently Receive Any Community Services or [facility] Care?: None Equipment Prior to Admission: None SOCIAL: Living Arrangements: Home Lives With: Alone Financial Resources: RetiredPrimary Contact: Extended Emerge ncy Contact Information Primary Emergency Contact: Tanya CaponeTiana Mobile Relation: Son Supportive Patient Contact:: Yes Contact Resources: Family Family Name/Phone: Tiana BlockNwa-[phone] (M) Social Needs Food insecurity Worry: Not [...] Mostly I feel financially burdened by my yvd-vp-bziswd expenses for my prescription medication:: 0 - [...] POA (not on file) Tiana medina at [phone] (M) to introduce myself and to explain my role as a Machine Welt [employer]. Patient had been independent with no home [...] 03, 2019 TIME: 2:45 PM PAGER/CONTACT #: [phone] basic metabolic panl on 2019-11-03 Anion gap [Moles/Vol] 15 9-18 mmol/L Normal 11-03-19 20 [facility] (43514) Comment: Performed By: #### BMP ####C [facility] [address] [place], [place] [phone] Calcium [Mass/Vol] 9.7 8.5-10.2 mg/dL Normal 11-03-2019 [facility] (79620) Comment: Performed By: #### BMP ####C [facility] [address] [place], [place] [phone]- [phone] Chloride [Moles/Vol] 102 97-105 mmol/L Normal 0 [facility] (38997) Comment: Performed By: #### BMP ####C [facility] [address] [place], [place] [phone]- [phone] CO2 [Moles/Vol] 29 22-30 mmol/L Normal 11-03-[address] [facility] (98797) Comment: Performed By: #### BMP ####C [facility] [place], [place] [phone]- [phone] Creatinine [Mass/Vol] 1.17 0.73-1.22 mg/dL Normal 11-03-19 20 [facility] (95047) Comment: Performed By: #### BMP ####C [facility] [place], [place] [phone] eGFR- Amer. >60 Normal 11-03-2019 [facility] (77306) Comment: Performed By: #### BMP ####C [address] [phone] GFR/1.73 sq M predicted among 60 . Normal 11-03-2019 [facility] non-blacks MDRD (S/P/Bld) [Vol (00288) rate/Area] Comment: Result Comment: eGFR (Estima alejandrina [...] actual GFR. Performed By: #### BMP ####C [facility] [place], [place] [phone]- [phone] Glucose [Mass/Vol] 142 74-99 mg/dL High 11-03-2019 [facility] (61746) Comment: Result Comment: The [place] [employer] (ADA) provides guidance for cutoff [...] for diagnosis of diabetes. Reference: Standards of [facility] Care in Diabetes 2016, [place] [employer]. Diabetes Care. 2016.39(Suppl 1). Performed By: #### BMP ####C [place] [phone] Potassium [Moles/Vol] 3.2 3.7-5.1 mmol/L Low 11-03-19 [facility] (00093) Comment: Performed By: #### BMP ####C [place] [phone] Sodium [Moles/Vol] 146 136-144 mmol/L High 11-03-2019 [facility] (21261) Comment: Performed By: #### BMP ####C [place] [phone] Urea nitrogen [Mass/Vol] 34 9-24 mg/dL High 11-02 [facility] (94314) Comment: Performed By: #### BMP ####C [place] [phone] Anion gap [Moles/Vol] 14 9-18 mmol/L Normal 11-03-19 [facility] (31445) Comment: Performed By: #### PT, CBC, BMP, MG1, PHOS ####[address] [place], [place] [phone] Calcium [Mass/Vol] 9.8 8.5-10.2 mg/dL Normal 11-03-2019 [facility] (69643) Comment: Performed By: #### PT, CBC, BMP, MG1, PHOS ####[place] [address] [address] [place], [place] [phone] Chloride [Moles/Vol] 100 97-105 mmol/L Normal 0 [facility] (36170) Comment: Performed By: #### PT, CBC, BMP, MG1, PHOS ####[facility] [address] [place], [place] [phone] CO2 [Moles/Vol] 27 22-30 mmol/L Normal 11-03-[address] [facility] (51630) Comment: Performed By: #### PT, CBC, BMP, MG1, PHOS ####[facility] [address] [place], [place] [phone] Creatinine [Mass/Vol] 1.26 0.73-1.22 mg/dL High 11-03-19 20 [facility] (69214) Comment: Performed By: #### PT, CBC, BMP, MG1, PHOS ####[facility] [address] [place], [place] [phone] eGFR- Amer. >60 Normal 11-03-2019 [facility] (73565) Comment: Performed By: #### PT, CBC, BMP, MG1, PHOS ####[facility] [address] [place], [place] [phone] GFR/1.73 sq M predicted among 55 . Normal 11-03-2019 [facility] non-blacks MDRD (S/P/Bld) [Vol (71235) rate/Area] Comment: Result Comment: eGFR (Estima alejandrina GFR) Units of measure: mL/min/1.73 meters squared eGFR is derived from the ree xpressed MDRD Study equation using the following parameters: serum creatinine, age, gender and race. The creatinine assay has been calibrated to be traceable to IDPramana. An eGFR <60 mL/min/1.73m2 fo r >3 months is consistent with chronic kidney disease. Refer to KDOQI guidelines for clinical interpretation. In patients with unstable re nal function, e.g. those with acute kidney injury, the eGFR may not accurately reflect actual GFR. Performed By: #### PT, CBC, BMP, MG1, PHOS ####[facility] [address] [place], [place] [phone] Glucose [Mass/Vol] 179 74-99 mg/dL High 11-03-2019 [facility] (35282) Comment: Result Comment: The [place] Diabetes [employer] (ADA) provides guidance for cutoff [...] for diagnosis of diabetes. Reference: Standards of [facility] Care in Diabetes 2016, [place] [employer]. Diabetes Care. 2016.39(Suppl 1). Performed By: #### PT, CBC, BMP, MG1, PHOS ####[facility] [place], [place] [phone] Potassium [Moles/Vol] 3.0 3.7-5.1 mmol/L Low 11-03-19 [facility] (58147) Comment: Performed By: #### PT, CBC, BMP, MG1, PHOS ####[facility] [address] [place], [place] [phone] Sodium [Moles/Vol] 141 136-144 mmol/L Normal 11-03-2019 [facility] (17835) Comment: Performed By: #### PT, CBC, BMP, MG1, PHOS ####[facility] [address] [place], [place] [phone] Urea nitrogen [Mass/Vol] 35 9-24 mg/dL High 11-02 [facility] (62916) Comment: Performed By: #### PT, CBC, BMP, MG1, PHOS ####[facility] [address] [place], [place] [phone] xr chest 1v frontal port on 2019-11-02 XR CHEST 1V * * *Final Report* * * Normal 11-01 [facility] FRONTAL PORT DATE OF EXAM: Nov 02 2019 11:41AM [place] (94005) YENY 5376 - XR CHEST 1V FRONTAL [...] chest CT. Other: . IMPRESSION: See result. Animal Groomer: PSCB Transcribe Date/Time: Nov 02 2019 1:01P Dictated by : KATIE LUNA MD This examination was interpreted and the report reviewed and electronically signed by: KATIE LUNA MD on Nov 02 2019 1:05PM EST [id number] type and screen on 2019-11-02 ABO/RH(D) O POSITIVE Normal 11-02-2019 [facility] (69203) Comment: Performed By: #### TSCR #### [facility] [address] [place], [place] [phone] progress on 2019-10 PROGRESS HNO ID: [id number] Normal 11-02-2019 [facility] Author: Shaheen Rosenberg [place] (98201) Service: Oncology Author Type: Physician Type: Progress Notes Filed: 11/02/2019 5:40 PM Note Text: Solid Tumor Oncology 1 Progress Note Progress Note PATIENT NAME: Tiana Matrínez PRIMARY SERVICE: STO1 ADMISSION DAY 10/31/2019 HOSPITAL [...] pending 10/31/19 1215 vte pharmacologic prophylaxis contraindicated (ri,va) 10/31/19 1215 pneumatic compression stockings (ri,va) 10/31/19 1215 activity - mobilize patient ([place]) SIGNATURE: Skylar Seay MD PHD PGY-1 PATIENT NAME: Taina medina DATE: 11/02/2019 TIME: 10:58 AM PAGER: [phone] Note: These recommendations are not final until staffed by max harrsi See my note from earlier today. Shaheen Rosenberg MD PROGRESS HNO ID: [id number] Normal 11-02-2019 [facility] Author: Shaheen Rosenberg [place] (38354) Service: Oncology Author Type: Physician Type: Progress [...] negative. Shaheen Rosenberg MD MA Associate Staff [facility] [place] November 02, 2019 nursing prog on NURSING PROG HNO ID: [id number] Normal 11-02-19 [facility] Author: Arlette JasmineRn) JUNIE Guillermo [place] (87154) Service: Nursing Author Type: Registered Nurse Type: [...] per floor RN. NURSING PROG HNO ID: [id number] Normal 11-02-19 [facility] Author: Arlette JasmineRn) JUNIE Guillermo [place] (56534) Service: Nursing Author Type: Registered Nurse Type: Nursing Progress Note Filed: 11/02/2019 10:04 AM Note Text: Handoff report obtained from floor RN for patient MRI scan. Pt unable to lie flat during trial due to respiratory status. RN to notif y ordering provider and notify imaging of status update for scan. cbc on 2019-11-02 Absolute nRBC 0.82 <0.01 k/uL High 11-02-2019 [facility] (46481) Comment: Performed By: #### CBC, BMP ####[facility] [address] [place], [place] [phone] Erythrocyte distribution 28.9 11.5-15.0 % High 11-01 [facility] width (RBC) [Ratio] [place] (85714) Comment: Performed By: #### CBC, BMP ####[facility] [address] AveCM[place], [place] [phone] Hematocrit (Bld) [Volume 26.0 39.0-51.0 % Low 11-01 [facility] fraction] (88828) Comment: Performed By: #### CBC, BMP ####[facility] [address] [place], [place] [phone] Hemoglobin (Bld) 7.8 13.0-17.0 g/dL Low 11-02-2019 [facility] [Mass/Vol] [place] (68154) Comment: Performed By: #### CBC, BMP ####[place] [address] [address] [place], [place] [phone] MCH (RBC) [Entitic mass] 24.0 26.0-34.0 pG Low 11-01 [facility] (11160) Comment: Performed By: #### CBC, BMP ####[place] [address] [address] [place], [place] [phone] MCHC (RBC) [Mass/Vol] 30.0 30.5-36.0 g/dL Low 11-02-19 20 [facility] (93940) Comment: Performed By: #### CBC, BMP ####[address], [place] [phone]- [phone] MCV (RBC) [Entitic vol] 80.0 80.0-100.0 fL Normal 11-01 [facility] (00130) Comment: Performed By: #### CBC, BMP ####[place] [address] [place], [place] [phone] Platelet mean <<DO NOT REPORT>> 9.0-12.7 Normal 11-02-19 [facility] volume (Bld) [place] (75088) [Entitic vol] Comment: Performed By: #### CBC, BMP ####[place] [address] [place], [place] [phone] Platelets (Bld) [#/Vol] 36 150-400 k/uL Low 2019 [facility] (93357) Comment: Result Comment: Result check ed and verified No clot detected. Performed By: #### CBC, BMP ####[place] [address] [place], [place] [phone] RBC (Bld) [#/Vol] 3.25 4.20-6.00 m/uL Low 11-02-2019 C [facility] (65152) Comment: Performed By: #### CBC, BMP ####[place] [address] [place], [place] [phone] WBC (Bld) [#/Vol] 9.84 3.70-11.00 k/uL Normal 11-02-2019 [facility] (44131) Comment: Performed By: #### CBC, BMP ####[place] [address] [place], [place] [phone] basic metabolic panl on 2019-11-02 Anion gap [Moles/Vol] 16 9-18 mmol/L Normal 11-02-19 [facility] (55818) Comment: Performed By: #### CBC, BMP ####[place] [address] [place], [place] [phone] Calcium [Mass/Vol] 9.5 8.5-10.2 mg/dL Normal 11-02-2019 [facility] (13113) Comment: Performed By: #### CBC, BMP ####[place] [address] [place], [place] [phone] Chloride [Moles/Vol] 103 97-105 mmol/L Normal 0 [facility] (54771) Comment: Performed By: #### CBC, BMP ####[place] [address], [place] 12494232 [phone] CO2 [Moles/Vol] 24 22-30 mmol/L Normal 11-02-[address] [facility] (22572) Comment: Performed By: #### CBC, BMP ####[place] [address] [place], [place] [phone] Creatinine [Mass/Vol] 1.18 0.73-1.22 mg/dL Normal 11-02-19 20 [facility] (74661) Comment: Performed By: #### CBC, BMP ####[place] [address] [place], [place] [phone] eGFR- Amer. >60 Normal 11-02-2019 [facility] (50831) Comment: Performed By: #### SAUMYA, BMP ####[facility] [place], [place] [phone] GFR/1.73 sq M predicted among 59 . Normal 11-02-2019 [facility] non-blacks MDRD (S/P/Bld) [Vol (92102) rate/Area] Comment: Result Comment: eGFR (Estima alejandrina [...] actual GFR. Performed By: #### CBC, BMP ####[facility] [place], [place] [phone]- [phone] Glucose [Mass/Vol] 144 74-99 mg/dL High 11-02-2019 [facility] (51215) Comment: Result Comment: The [place] [employer] (ADA) provides guidance for cutoff [...] for diagnosis of diabetes. Reference: Standards of [facility] Care in Diabetes 2016, [place] [employer]. Diabetes Care. 2016.39(Suppl 1). Performed By: #### CBC, BMP ####[facility], [place] [phone]- [phone] Potassium [Moles/Vol] 3.3 3.7-5.1 mmol/L Low 11-02-19 [facility] (84590) Comment: Performed By: #### CBC, BMP ####[address] [place], [place] [phone]- [phone] Sodium [Moles/Vol] 143 136-144 mmol/L Normal 11-02-2019 [facility] (20966) Comment: Performed By: #### CBC, BMP ####[place] [address] [place], [place] [phone] Urea nitrogen [Mass/Vol] 38 9-24 mg/dL High 11-01 [facility] (52658) Comment: Performed By: #### CBC, BMP ####[place] [phone]- [phone] type and screen on 2019-11-01 ABO/RH(D) O POSITIVE Normal 11-01-2019 [facility] (88049) Comment: Performed By: #### TSCR #### [address] [place] [phone] path interp w cbcdif on 2019-11-01 Abs Baso 0.00 <0.11 k/uL Normal 11-01-2019 [facility] (66451) Comment: Performed By: #### NTBNP, BM P, HAPTO, IRON, PTT, DDMER, FIBCT, FERR, STREV ####[facility] Laborat divog[address] AveCM[address] [place], [place] [phone] Abs [place] 0.42 <0.87 k/uL Normal 11-01-2019 [facility] (54118) Comment: Performed By: #### NTBNP, BM P, HAPTO, IRON, PTT, DDMER, FIBCT, FERR, STREV ####[facility] Laborat v[address]CM[place], [place] [phone] Abs Neut 5.94 1.45-7.50 k/uL Normal 11-01-2019 [facility] (71209) Comment: Performed By: #### NTBNP, BM P, HAPTO, IRON, PTT, DDMER, FIBCT, FERR, STREV ####[facility] Laborat jfsqc[address] AveClevelandGerm[place], [place] [phone] Absolute nRBC 1.10 <0.01 k/uL High 11-01-2019 [facility] (20186) Comment: Performed By: #### NTBNP, BM P, HAPTO, IRON, PTT, DDMER, FIBCT, FERR, STREV ####[facility] Laborat ocd[address] [facility]Cpa[facility], [place] [phone] ANC(includeSEG+BAND) 5.94 k/uL Normal 0 [facility] (10252) Comment: Performed By: #### NTBNP, BM P, HAPTO, IRON, PTT, DDMER, FIBCT, FERR, STREV ####[facility] zytel[address] [place] AveC[address]re [place] [phone] Anisocytosis Ql (Bld) Present Normal 11-01-19 [facility] (52311) Comment: Performed By: #### NTBNP, BM P, HAPTO, IRON, PTT, DDMER, FIBCT, FERR, STREV ####[facility] Laborat wwknx[address] AveClevelatrium health [facility], [place] [phone] Basophils/100 WBC (Bld) 0.0 % Normal 2019 [facility] (04757) Comment: Performed By: #### NTBNP, BM P, HAPTO, IRON, PTT, DDMER, FIBCT, FERR, STREV ####[facility] irthp[address]CM[place], [place] [phone] DTYPE Manual Diff Normal 11-01-2019 [facility] (30107) Comment: Performed By: #### NTBNP, BM P, HAPTO, IRON, PTT, DDMER, FIBCT, FERR, STREV ####[facility] Laborat nlazd[address] [place] AveClevelandChristine [place] [phone] Eosinophils (Bld) [#/Vol] 0.00 <0.46 k/uL Normal 10-13 [facility] (46262) Comment: Performed By: #### NTBNP, BM P, HAPTO, IRON, PTT, DDMER, FIBCT, FERR, STREV ####[facility] [id number] [place] AveCleveland[place]ine [place] [phone] Eosinophils/100 WBC (Bld) 0.0 % Normal 10-13 [facility] (05035) Comment: Performed By: #### NTBNP, BM P, HAPTO, IRON, PTT, DDMER, FIBCT, FERR, STREV ####[facility] bwcta6044 [place] AveCAndre [place] [phone] Erythrocyte distribution 29.2 11.5-15.0 % High 10-31 [facility] width (RBC) [Ratio] [place] (84660) Comment: Performed By: #### NTBNP, BM P, HAPTO, IRON, PTT, DDMER, FIBCT, FERR, STREV ####[facility] lmauz2306 [place] AveClevelStacey [place] [phone] Hematocrit (Bld) [Volume 22.6 39.0-51.0 % Low 10-31 [facility] fraction] (51650) Comment: Performed By: #### NTBNP, BM P, HAPTO, IRON, PTT, DDMER, FIBCT, FERR, STREV ####[facility] [id number] [place] AveCAndre [place] [phone] Hemoglobin (Bld) 6.4 13.0-17.0 g/dL Low 11-01-2019 [facility] [Mass/Vol] [place] (65538) Comment: Performed By: #### NTBNP, BM P, HAPTO, IRON, PTT, DDMER, FIBCT, FERR, STREV ####[facility] wstjp3563 [address] AveCMount [place], [place] [phone] Lymphocytes (Bld) [#/Vol] 1.87 1.00-4.00 k/uL Normal 10-13 [facility] (79041) Comment: Performed By: #### NTBNP, BM P, HAPTO, IRON, PTT, DDMER, FIBCT, FERR, STREV ####[facility] njrsw3471 [address] AveCMount [place], [place] [phone] Lymphocytes/100 WBC (Bld) 22.0 % Normal 10-13 [facility] (36085) Comment: Performed By: #### NTBNP, BM P, HAPTO, IRON, PTT, DDMER, FIBCT, FERR, STREV ####[facility] AveCM[address] [place], [place] [phone] MCH (RBC) [Entitic mass] 23.1 26.0-34.0 pG Low 10-31 [facility] (99764) Comment: Performed By: #### NTBNP, BM P, HAPTO, IRON, PTT, DDMER, FIBCT, FERR, STREV ####[facility]CM[address] [place], [place] [phone] MCHC (RBC) [Mass/Vol] 28.3 30.5-36.0 g/dL Low 11-01-19 [facility] (89828) Comment: Performed By: #### NTBNP, BM P, HAPTO, IRON, PTT, DDMER, FIBCT, FERR, STREV ####[facility] bgtdb8421 [address] AveCM[address] [place], [place] [phone] MCV (RBC) [Entitic vol] 81.6 80.0-100.0 fL Normal 10-31 [facility] (88941) Comment: Performed By: #### NTBNP, BM P, HAPTO, IRON, PTT, DDMER, FIBCT, FERR, STREV ####[facility] hgetr1532 [address] AveClevelandChristine [place] [phone] Monocytes/100 WBC (Bld) 5.0 % Normal 2019 [facility] (48189) Comment: Performed By: #### NTBNP, BM P, HAPTO, IRON, PTT, DDMER, FIBCT, FERR, STREV ####[facility] [id number] [address] [place] AveCleveland, [place] [phone] Myelo% 3.0 % Normal 11-01-2019 [facility] (93208) Comment: Performed By: #### NTBNP, BM P, HAPTO, IRON, PTT, DDMER, FIBCT, FERR, STREV ####[facility] ijdeu8981 [place] AveClevelStacey [place] [phone] Neutrophils/100 WBC (Bld) 70.0 % Normal 10-13 [facility] (61589) Comment: Result Comment: See Patholog ist Interpretation Performed By: #### NTBNP, BM P, HAPTO, IRON, PTT, DDMER, FIBCT, FERR, STREV ####[facility] [id number] [place] AveCAndre [place] [phone] NRBCs 13 0 /100 WBC High 11-01-2019 [facility] (26536) Comment: Performed By: #### NTBNP, BM P, HAPTO, IRON, PTT, DDMER, FIBCT, FERR, STREV ####[facility] iwmjh3451 [place] AveCAndre [place] [phone] Ovalocytes Few Normal 11-01-2019 [facility] (90564) Comment: Performed By: #### NTBNP, BM P, HAPTO, IRON, PTT, DDMER, FIBCT, FERR, STREV ####[facility] yuqwl5233 [place] AveCAndre [place] [phone] Pathologist Interp SEE COMMENT Normal 0 [facility] (53458) Comment: Result Comment: Normocytic A nemia With Moderate Polychromasia Thrombocytopenia Performed By: #### NTBNP, BM P, HAPTO, IRON, PTT, DDMER, FIBCT, FERR, STREV ####[facility] eakmu6066 [address] AveCMount [place], [place] [phone] Pathologist: Reviewed by Maria L Normal 10-31 [facility] MD Freddie PhD (07242) [place] (83770) Comment: Performed By: #### NTBNP, BM P, HAPTO, IRON, PTT, DDMER, FIBCT, FERR, STREV ####[facility] [id number] [address] AveCMount [place], [place] [phone] Platelet mean <<DO NOT REPORT>> 9.0-12.7 Normal 11-01-19 20 [facility] volume (Bld) [place] ([address]) [Entitic vol] Comment: Performed By: #### NTBNP, BM P, HAPTO, IRON, PTT, DDMER, FIBCT, FERR, STREV ####[facility] ovebf2473 [address] AveCMount [place], [place] [phone] Platelets (Bld) [#/Vol] 42 150-400 k/uL Low 2019 [facility] (36074) Comment: Result Comment: Result check ed and verified No clot detected. Performed By: #### NTBNP, BM P, HAPTO, IRON, PTT, DDMER, FIBCT, FERR, STREV ####[facility] neami0861 [address] AveCMount [place], [place] [phone] Platelets (Bld) Platelet estimate Normal 2019 [facility] [#/Vol] decreased [place] (79980) Comment: Performed By: #### NTBNP, BM P, HAPTO, IRON, PTT, DDMER, FIBCT, FERR, STREV ####[facility] ylidj5291 [address] AveCMount [place], [place] [phone] Polychromasia Moderate Normal 11-01-2019 [facility] (50874) Comment: Performed By: #### NTBNP, BM P, HAPTO, IRON, PTT, DDMER, FIBCT, FERR, STREV ####[facility] mebqt7044 [address] [place] AveClevelHouse, [place] [phone] RBC (Bld) [#/Vol] 2.77 4.20-6.00 m/uL Low 11-01-2019 [facility] (10365) Comment: Performed By: #### NTBNP, BM P, HAPTO, IRON, PTT, DDMER, FIBCT, FERR, STREV ####[facility] alvvi8448 [address] AveCM[address] [place], [place] [phone] RBC Fragments Few Normal 11-01-2019 [facility] (30227) Comment: Performed By: #### NTBNP, BM P, HAPTO, IRON, PTT, DDMER, FIBCT, FERR, STREV ####[facility] oeitu5219 [address] [place] AveCM[place], [place] [phone] Spherocytes Few Normal 11-01-2019 [facility] (66553) Comment: Performed By: #### NTBNP, BM P, HAPTO, IRON, PTT, DDMER, FIBCT, FERR, STREV ####[facility] pwjqy7233 [address] AveCM[address] [place], [place] [phone] Target Cells Few Normal 11-01-2019 [facility] (99996) Comment: Performed By: #### NTBNP, BM P, HAPTO, IRON, PTT, DDMER, FIBCT, FERR, STREV ####[facility] roond6752 [address] AveCM[place], [place] [phone] WBC (Bld) [#/Vol] 8.48 3.70-11.00 k/uL Normal 11-01-2019 [facility] (92846) Comment: Performed By: #### NTBNP, BM P, HAPTO, IRON, PTT, DDMER, FIBCT, FERR, STREV ####[facility] deibj2112 [address] AveClevelHouse, [place] [phone] nt pro bnp on 10-31 PRO B Natr Peptide 890 <450 pg/mL High 11-01-2019 [facility] (49372) Comment: Performed By: #### NTBNP, BM P, HAPTO, IRON, PTT, DDMER, FIBCT, FERR, STREV ####[facility] kpmve1762 [address] AveCMount [place], [place] [phone] iron and tibc on 01-11-19 Iron [Mass/Vol] 45 41-186 ug/dL Normal 11-01-[address] [facility] (69780) Comment: Performed By: #### NTBNP, BM P, HAPTO, IRON, PTT, DDMER, FIBCT, FERR, STREV ####[facility] dzakc4715 [address] AveCMount [place], [place] [phone] TIBC 243 232-386 ug/dL Normal 11-01-2019 [facility] (98937) Comment: Performed By: #### NTBNP, BM P, HAPTO, IRON, PTT, DDMER, FIBCT, FERR, STREV ####[facility] gjbvm3835 [address] AveCMount [place], [place] [phone] Transferrin Saturatn 19 15-57 % Normal 0 [facility] (68358) Comment: Performed By: #### NTBNP, BM P, HAPTO, IRON, PTT, DDMER, FIBCT, FERR, STREV ####[facility] wstvf1142 [address] AveCM[place], [place] [phone] haptoglobin on 2019 Haptoglobin 189 31-238 mg/dL Normal 11-01-2019 [facility] (67770) Comment: Performed By: #### NTBNP, BM P, HAPTO, IRON, PTT, DDMER, FIBCT, FERR, STREV ####[facility] cgfvx3263 [address] AveCMount [place], [place] [phone] fibrinogen on 10-31 Fibrinogen 526 200-400 mg/dL High 11-01-2019 [facility] (09637) Comment: Result Comment: Result reche cked. Sample checked for a clot. Performed By: #### NTBNP, BM P, HAPTO, IRON, PTT, DDMER, FIBCT, FERR, STREV ####[facility]CM[address] [place], [place] [phone] ferritin on 2019-10 Ferritin [Mass/Vol] 62.5 30.3-565.7 ng/mL Normal 0 [facility] (28405) Comment: Performed By: #### NTBNP, BM P, HAPTO, IRON, PTT, DDMER, FIBCT, FERR, STREV ####[facility]CM[address] [place], [place] [phone] d dimer on D dimer 840 <500 ng/mL FEU High 11-01-2019 [facility] (83142) Comment: Result Comment: 500 ng/mL FE U [...] HAPTO, IRON, PTT, DDMER, FIBCT, FERR, STREV ####[facility] vfaof[address] [place], [place] [phone] confirm blood type on 2019-11-01 ABO/RH(D) O POSITIVE Normal 11-01-2019 [facility] (29711) Comment: Performed By: #### CONABO ## ##[place] [phone] cbc on 2019-11-01 Absolute nRBC 0.84 <0.01 k/uL High 11-01-2019 [facility] (62619) Comment: Performed By: #### CBC ####C [place] [phone] Erythrocyte distribution 29.2 11.5-15.0 % High 10-31 [facility] width (RBC) [Ratio] [place] (35175) Comment: Performed By: #### CBC ####C [place] [phone] Hematocrit (Bld) [Volume 24.4 39.0-51.0 % Low 10-31 [facility] fraction] (11087) Comment: Performed By: #### CBC ####C [place] [phone] Hemoglobin (Bld) 7.3 13.0-17.0 g/dL Low 11-01-2019 [facility] [Mass/Vol] [place] (76047) Comment: Performed By: #### CBC ####C [place] [phone] MCH (RBC) [Entitic mass] 24.3 26.0-34.0 pG Low 10-31 [facility] (40773) Comment: Performed By: #### CBC ####C [address] [phone] MCHC (RBC) [Mass/Vol] 29.9 30.5-36.0 g/dL Low 11-01-19 20 [facility] (47654) Comment: Performed By: #### CBC ####C [address] [phone] MCV (RBC) [Entitic vol] 81.1 80.0-100.0 fL Normal 10-31 [facility] (97697) Comment: Performed By: #### CBC ####C [address] [phone] Platelet mean <<DO NOT REPORT>> 9.0-12.7 Normal 11-01-19 [facility] volume (Bld) [place] (97343) [Entitic vol] Comment: Performed By: #### CBC ####C [address] [phone] Platelets (Bld) [#/Vol] 42 150-400 k/uL Low 2019 [facility] (92020) Comment: Result Comment: Result check ed and verified No clot detected. Performed By: #### CBC ####C [address] [phone] RBC (Bld) [#/Vol] 3.01 4.20-6.00 m/uL Low 11-01-2019 [facility] (05187) Comment: Performed By: #### CBC ####C [address] [phone] WBC (Bld) [#/Vol] 9.13 3.70-11.00 k/uL Normal 11-01-2019 [facility] (39862) Comment: Performed By: #### CBC ####C [place] [address] [place], [place] [phone] basic metabolic panl on 2019-11-01 Anion gap [Moles/Vol] 12 9-18 mmol/L Normal 11-01-19 [facility] (33576) Comment: Performed By: #### NTBNP, BM P, HAPTO, IRON, PTT, DDMER, FIBCT, FERR, STREV ####[facility], [place] [phone] Calcium [Mass/Vol] 9.5 8.5-10.2 mg/dL Normal 11-01-2019 [facility] (20112) Comment: Performed By: #### NTBNP, BM P, HAPTO, IRON, PTT, DDMER, FIBCT, FERR, STREV ####[facility] [place], [place] [phone] Chloride [Moles/Vol] 105 97-105 mmol/L Normal [facility] (47118) Comment: Performed By: #### NTBNP, BM P, HAPTO, IRON, PTT, DDMER, FIBCT, FERR, STREV ####[facility], [place] [phone] CO2 [Moles/Vol] 29 22-30 mmol/L Normal 11-01-[address] [facility] (10311) Comment: Performed By: #### NTBNP, BM P, HAPTO, IRON, PTT, DDMER, FIBCT, FERR, STREV ####[facility] nwzzh0593 [address] [place], [place] [phone] Creatinine [Mass/Vol] 1.40 0.73-1.22 mg/dL High 11-01-19 [facility] (26901) Comment: Performed By: #### NTBNP, BM P, HAPTO, IRON, PTT, DDMER, FIBCT, FERR, STREV ####[facility] aebco[address] [place], [place] [phone] eGFR- Amer. 59 Normal 11-01-2019 [facility] (74404) Comment: Performed By: #### NTBNP, BM P, HAPTO, IRON, PTT, DDMER, FIBCT, FERR, STREV ####[facility] xlsvf[address] [place], [place] [phone] GFR/1.73 sq M predicted among 49 . Normal 11-01-2019 [facility] non-blacks MDRD (S/P/Bld) [Vol (49884) rate/Area] Comment: Result Comment: eGFR (Estima alejandrina [...] HAPTO, IRON, PTT, DDMER, FIBCT, FERR, STREV ####[facility] yzsfo[address] [place], [place] [phone] Glucose [Mass/Vol] 149 74-99 mg/dL High 11-01-2019 [facility] (37513) Comment: Result Comment: The [place] [employer] (ADA) provides guidance for cutoff [...] for diagnosis of diabetes. Reference: Standards of [facility] Care in Diabetes 2016, [place] [employer]. Diabetes Care. 2016.39(Suppl 1). Performed By: #### NTBNP, BM P, HAPTO, IRON, PTT, DDMER, FIBCT, FERR, STREV ####[facility] mdzbi7831 [address] AveCMount [place], [place] [phone] Potassium [Moles/Vol] 3.4 3.7-5.1 mmol/L Low 11-01-19 20 [facility] (84997) Comment: Performed By: #### NTBNP, BM P, HAPTO, IRON, PTT, DDMER, FIBCT, FERR, STREV ####[facility] josog1272 [address] AveCM[address] [place], [place] [phone] Sodium [Moles/Vol] 146 136-144 mmol/L High 11-01-2019 [facility] (81192) Comment: Performed By: #### NTBNP, BM P, HAPTO, IRON, PTT, DDMER, FIBCT, FERR, STREV ####[facility] dewiq6909 [address] [place], [place] [phone] Urea nitrogen [Mass/Vol] 39 9-24 mg/dL High 10-31 [facility] (92504) Comment: Performed By: #### NTBNP, BM P, HAPTO, IRON, PTT, DDMER, FIBCT, FERR, STREV ####[facility] ugwmf7650 [address] [place], [place] [phone] aptt on 2019-11-01 aPTT Coag (Bld) [Time] 26.2 23.0-32.4 sec Normal 020 [facility] (50423) Comment: Result Comment: Unfractionat ed Heparin Therapeutic [...] laboratory APTT reagent in use throughout the [facility]. Performed By: #### NTBNP, BM P, HAPTO, IRON, PTT, DDMER, FIBCT, FERR, STREV ####[facility] rayfj[address] [place], [place] [phone] xr chest 1v frontal port on 2019-10-31 XR CHEST 1V * * *Final Report* * * Normal 10-30 [facility] FRONTAL PORT DATE OF EXAM: Oct 31 2019 7:58PM [place] (85594) YENY 5376 - XR CHEST 1V FRONTAL [...] silho uette. Other: . IMPRESSION: See result. Animal Groomer: PSCB Transcribe Date/Time: Oct 31 2019 10:04P Dictated by : TITA GARZON MD This examination was interpreted and the report reviewed and electronically signed by: TITA GARZON MD on Oct 31 2019 10:06PM EST [id number] staph aureus pcr on 2019-10-31 MRSA PCR Negative for MRSA by PCR. Normal 10-12 [facility] (15070) Comment: Performed By: #### SAPCR ### #[place] [address] [address] [place], [place] [phone] S aureus Spec Source Nasal Normal 0 [facility] (69391) Comment: Performed By: #### SAPCR ### #[place] [address] [address], [place] [phone] Staph aureus PCR Negative for Normal 10-31-2019 [facility] Staphylococcus aureus by [place] (69592) PCR. Comment: Performed By: #### SAPCR ### #[place] [address] [address] [place], [place] [phone] s pneumo ag detect on 2019-10-31 S pneumo Ag Sp. Request/Comment: - Specimen received in sterile co ntainer. Normal 10-31-2019 [facility] Detect Test Result - Negative for S .pneumoniae antigen. Presumptive negative for pneumococcal pneumonia, suggesting no current or recent pneumococcal infection. Infection due to S.pneumoniae cannot be ruled ou [place] (06805) t since the antigen present in the sample may be below the detection limit of the test. Comment: Performed By: #### SPNAG ### #[address] [phone] resp panel by pcr o n 2019-10-31 Adenovirus Negative Negative Normal 10-31-2019 [facility] (17444) Comment: Performed By: #### RPPCR ### #[place] [address] [address], [place] [phone] C. pneumoniae Negative Negative Normal 10-31-2019 [facility] (95538) Comment: Performed By: #### RPPCR ### [address] [place], [place] [phone] Coronavirus 229E Negative Negative Normal 10-31-2019 [facility] (15683) Comment: Performed By: #### RPPCR ### [address], [place] [phone] Coronavirus HKU1 Negative Negative Normal 10-31-2019 [facility] (48999) Comment: Performed By: #### RPPCR ### #[place] [address] [address] [place] [phone] Coronavirus NL63 Negative Negative Normal 10-31-2019 [facility] (45664) Comment: Performed By: #### RPPCR ### #[place] [address] [address] [place] [phone] Coronavirus OC43 Negative Negative Normal 10-31-2019 [facility] (99860) Comment: Performed By: #### RPPCR ### #[place] [address] [address] [place] [phone] H Metapneumovirus Negative Negative Normal 10-31-2019 [facility] (19836) Comment: Performed By: #### RPPCR ### #[place] [address] [address] [place] [phone] Human Bocavirus Negative Negative Normal 10-31-[address] [facility] (78681) Comment: Performed By: #### RPPCR ### #[place] [address] [address] [place] [phone] Influenza A Virus Negative Negative Normal 10-31-2019 [facility] (76576) Comment: Performed By: #### RPPCR ### #[place] [address] [address] [place] [phone] Influenza B Virus Negative Negative Normal 10-31-2019 [facility] (15780) Comment: Performed By: #### RPPCR ### #[place] [address] [address] [place] [phone] M. pneumoniae Negative Negative Normal 10-31-2019 [facility] (05960) Comment: Performed By: #### RPPCR ### #[place] [address] [place], [place] [phone] Parainfluenza 1 Negative Negative Normal 10-31-[address] [facility] (53261) Comment: Performed By: #### RPPCR ### #[place] [address] [place], [place] [phone] Parainfluenza 2 Negative Negative Normal 10-31-[address] [facility] (43347) Comment: Performed By: #### RPPCR ### #[place] [address] [address] [place] [phone] Parainfluenza 3 Negative Negative Normal 10-31-[address] [facility] (78588) Comment: Performed By: #### RPPCR ### #[place] [address] [address] [place] [phone] Parainfluenza 4 Negative Negative Normal 10-31-[address] [facility] (36691) Comment: Performed By: #### RPPCR ### #[place] [address] [phone] Resp Panel Source Nasopharyngeal Swab Normal [facility] (31807) Comment: Performed By: #### RPPCR ### #[place] [address] [address] [place] [phone] Resp Syncytial Vir A Negative Negative Normal 0 [facility] (94880) Comment: Performed By: #### RPPCR ### #[place] [address] [address] [place] [phone] Resp Syncytial Vir B Negative Negative Normal 0 [facility] (06363) Comment: Performed By: #### RPPCR ### #[place] [address] [address] [place] [phone] Rhino/Enterovirus Negative Negative Normal 10-31-2019 [facility] (46958) Comment: Performed By: #### RPPCR ### #[place] [address] [address] [place], [place] [phone] protime on PT Coag (PPP) [Time] 1.0 0.9-1.3 s Normal 0 [facility] (49886) Comment: Result Comment: Vitamin K An tagonist (VKA) Therapeutic Range: INR 2 to 3 (Target INR of 2.5) Note: For patients treated w ith VKA drugs, such as warfarin, the [place] [employer] 2012 Guideline recommends a therapeutic INR range of 2 to 3 (target INR of 2.5). This recommendation includes high-risk patients with antiphospholipid syndrome with previous arterial or venous thromboembolism, current-generation mechanical or bioprosthetic aortic heart valve replacement. Note: Patients with farm machinery set up mechanic al aortic valve replacement and additional risk factors for thromboembolic events (atrial fibrillation, previous thromboembolism, LV dysfunction, hypercoagulable conditions) or an older generation mecha nical AVR (i.e., ball in-Cage) or any mechanical MVR should have a INR therapeutic range of 2.5 to 3.5 (target INR of 3). Vitaliy GH, et al. Chest 2012 , 141:7S-47S Janet RA, et al. [facility] 20 , 70: 252-289 Performed By: #### PT, CMP, CBCDIF ####[place] [id number] [place], [place] [address] [phone] PT Coag (PPP) [Time] 10.3 9.7-13.0 sec Normal 0 [facility] (84945) Comment: Performed By: #### PT, CMP, CBCDIF ####[facility] [address] [place], [place] [phone] procalcitonin on 31-10-18 Procalcitonin 0.36 <0.09 ng/mL High 10-31-2019 [facility] (87204) Comment: Result Comment: For a guided interpretation of test results, please visit the Change in Procalcitonin Calculator, [email or web address]. Performed By: #### PROCAL ## ##[facility] [place], [place] [phone]- [phone] nursing prog on NURSING PROG HNO ID: [id number] Normal 10-31-19 [facility] Author: Pati JasmineRn) JUNIE Wakefield [place] (03926) Service: ? Author Type: Registered Nurse Type: Nursing Progress Note Filed: 10/31/2019 5:42 PM Note Text: Admission/Transfer Note PATIENT NAME: Tiana Martínez Patient transferred from [facility] via bed in stable condition. Actions taken: Patient oriented to room, call light function and Patient rights. Skin assessed with Della LOZOYA. This note was completed by: Pati Wakefield RN NURSING PROG HNO ID: [id number] Normal 10-31-19 [facility] Author: Olimpia JasmineRn) JUNIE Calhoun [place] (67549) Service: ? Author Type: Registered Nurse Type: Nursing Progress Note Filed: 10/31/2019 5:41 PM Note Text: Nursing Progress Note Tiana Martínez [id number] COVID test came back negative, service notified Dr.Glav ramos, admitting notified for transfer. 1550 report called to [facility] for transfer to bed 08. 1610 patient upset about no visitor policy, ombudsmen pamphl et given to patient. 1620 patient off floor with transport to [facility]. This note was completed by: Olimpia Calhoun RN legionella urine ag on 2019-10-31 Legionella Urine Ag Negative Negative Normal 10-31-2019 [facility] (33058) Comment: Result Comment: Negative for L. pneumophila serogroup 1 antigen in urine, suggesting no recent or current infection. Legionnai res disease cannot be ruled out since ot her serogroups and species may also cause d isease. Performed By: #### LEGUAG ## ##[facility] [address] [place], [place] [phone] hosp on 2019-10-31 HOSP Patient:Tiana Martínez Normal 10-31-19 [place] MRN: [facility] Height:5' 9(1.753 m) [place] Weight:202 lb (91.627 kg) (67046) Outpatient Medications as of 11/05/19: atorvastatin (LIPITOR) [...] 79 year o ld male transferred from [facility] where he presented with chief complaint of dyspnea. Patient reports that several weeks ago he presented [facility] and what day was diagnosed [...] Zithromax. The patient was transferred to the [facility] at the suggestion of his outpatient [...] of skin, thyroid cancer Upon arrival to [facility], the pat ieradha was hemodynamically stable w/ [...] Complained of the restrictive visitation rules at [facility]. 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 The patient remains to be seen by and discussed with oncology staff, at which time the final assessme nt and recommendations may be edited. Olimpia Calhoun, RN, RN 10/31/2019 5:41 PM Addendum Nursing Progress Note Tiana Martínez [id number] 1525 COVID test came back negative, service notified Dr.Glav ramos, admitting notified for transfer. 1550 report called to [facility] for transfer to bed 08. 1610 patient upset about no visitor policy, ombudsmen pamphl et given to patient. 1620 patient off floor with transport to [facility]. This note was completed by: Olimpia Calhoun RN Previous Version Pati Wakefield, RN, RN 10/31/2019 5:42 PM Sig lee Admission/Transfer Note PATIENT NAME: Tiana Martínez Patient transferred from [facility] via bed in stable condition. Actions taken: [...] negative. Shaheen Rosenberg MD MA Associate Staff [facility] [place] November 02, 2019 Shaheen Rosenberg MD 11/02/2019 [...] pending 10/31/19 1215 vte pharmacologic prophylaxis contraindicated (ri,oh) 10/31/19 1215 pneumatic compression stockings (ri,oh) 10/31/19 1215 activity - mobilize patient (ri,va) SIGNATURE: Skylar Seay MD PHD PGY-1 PATIENT NAME: Tiana medina DATE: 11/02/2019 TIME: 10:58 AM PAGER: [phone] Note: These recommendations are not final until [...] Note Patient Name: Tiana Martínez Patient Location: [place] [address]/70-08 Daily Note: 0026 A Fib RVR HR [...] 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 0765-9645 - COPD (chronic obstructive pulmonary disease) (HCC) - CVA (cerebral vascular accident) (HCC) 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 - Diverticulosis of colon (without mention of hemorrhage) - DM (diabetes mellitus) ([facility]) - Hemorrhage of gastrointestinal tract, unspecified - [...] November 03, 2019 TIME: 2:02 AM PAGER: [phone] Rei Vidal, Tech 11/03/2019 9:01 AM Signed [...] that several weeks ago he presented to [facility] and what day was diagnosed with a new hilar left upper lobe mass that had rapidly grown since his last imaging in [facility]. He started experiencing shortness of breath and [...] 2 L of oxygen. [facility] on Rocephin and Zithromax. 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 Patient not seen [...] (ml) 50 850 1360 ? Output (ml) 109 952 4477 200 Net (ml) -902 300 -1440 -200 [...] pending 10/31/19 1215 vte pharmacologic prophylaxis contraindicated ([place]) 10/31/19 1215 pneumatic compression stockings ([place]) 10/31/19 1215 activity - mobilize patient ([place]) SIGNATURE: Skylar Seay MD PHD PGY-1 PATIENT NAME: Tiana medina DATE: 11/03/2019 TIME: 7:58 AM PAGER: [phone] Note: These recommendations are not final until [...] for Discharge MEDICAL: MEDICARE A AND B Patient/Child Care Coordinator State d Goals: To have reduction in [...] Current Advance Directive: Health Care Power of Typing Checker In Chart: No Machine Welt Butter Attempted to Assist with AD Completion: Yes Action: Other: See Comment(Son states he is POA for both [facility] care and finances) Health LiteracyHow [...] Patient Currently Receive Any Community Services or [facility] Care?: None Equipment Prior to Admission: None SOCIAL: Living Arrangements: Home Lives With: Alone Financial Resources: RetiredPrimary Contact: Extended Emerge ncy Contact Information Primary Emergency Contact: Tanya CaponeTiana Mobile Relation: Son Supportive Patient Contact:: Yes Contact Resources: Family Family Name/Phone: Tiana BlockYwg-[phone] (M) Social Needs Food insecurity Worry: Not [...] Mostly I feel financially burdened by my nkt-tc-yjddes expens es for my prescription medication:: 0 [...] (no t on file) Tiana Martínez at [phone] (M) to introduce myself and to explain my role a s a Machine [employer]. Patient had been independent with no home care servi dhiraj or DME. He was driving his car two weeks ago. He lives alone. He was not us ing home oxygen, in the hospital he is requiring 2-3 liters. Son states he has been in [facility] with [facility]. It is close to his fathers home. CM will follow f or dispo plan. SIGNATURE: Saud Pop RN PATIENT NAME: Tiana Martínez DATE: November 03, 2019 TIME: 2:45 PM PAGER/CONTACT #: [phone] Trina Blount RN, RN 11/03/2019 5:11 PM Signed This RN instructed Katie Jordan N on pt having bronch tomorrow 11/04/2019. Pt not on blood thinner. Verbalized understanding of said instructions . Clau Soriano RN, RN 11/04/2019 2:17 AM Signed Nursing Progress Note Patient Name: Tiana Martínez Patient Location: [place] [id number] Daily Note: 2100 2 units platelets [...] 50 850 1360 1668 ? Output (ml) 511 589 2368 1275 225 Net (ml) -902 300 -1440 [...] pending 10/31/19 1215 vte pharmacologic prophylaxis contraindicated (ri,va) 10/31/19 1215 pneumatic compression stockings (ri,va) 10/31/19 1215 activity - mobilize patient ([place]) SIGNATURE: Skylar Seay MD PHD PGY-1 PATIENT NAME: Tiana medina DATE: 11/04/2019 TIME: 7:58 AM PAGER: [phone] Note: These recommendations are not final until staffed by max harris HEMATOLOGY/MEDICAL ONCOLOGY/[facility] STA FF: STAFF PHYSICIAN [...] [place] [id number] Previous Version Jay Kelly, OLE 11/04/2019 2:05 PM S igned JUNK DEALER PROGRESS NOTE Name: Tiana Martínez Date of [...] was provided to any brunner and his hand clipper's office over the years. María e offered [...] and/or physician, and remain available to patient's [facility]. Signature: JARETH Stanley [facility] Print Line Feeder Pager: [phone] Date: November 04, 2019 Time: 10:58 AM Huy Brown, PT, PT 11/04/2019 1:20 PM Signed PHYSICAL THERAPY MISSED VISIT SERVICE DATE: 11/04/2019 SERVICE TIME: 1320 to 1320 ROOM: [place] [address] Attempted Evaluation. Patient not seen d ue [...] 04, 2019 TIME: 4:23 PM PAGER/CONTACT #: [phone] Lizandro Cruz MD 11/04/2019 5:05 PM Signed [...] Patient Name: Tiana Martínez [facility] Daily Note: 0078-6995 Tylenol given for pain 10 to R hip. Heart/lung sounds WNL. Irregular HR on ascultation. Pt on tel emetry, monitor reviewed, patient in Afib HR 80-100. (24707) updated. 0500 MASD noted to scrotum, Aquaphor cream delivered from pharmacy, pt self applied. Pt noted wheezing/SOB, sating w ell on 2L NC. RT at bedside for PRN tx and scheduled mucomyst. AM labs drawn by laboratory apparatus glass grinder. This note was completed by: Katina Holland RN Previous Version history physical on 2019-10-31 HISTORY HNO ID: [id number] Normal 10-31-2019 [place] PHYSICAL Author: Skylar Sharif (Gaviota Seay MD Clinic Service: Oncology Cl maricel Author Type: Resident ([id number]) Type: HANDP Filed: 10/31/2019 10:05 PM Note Text: Solid Tumor Oncology 1 History and Physical PATIENT NAME: Tiana Martínez PRIMARY SERVICE: ADMISSION DAY 10/31/2019 HOSPITAL DAY: 0 CODE STATUS: Code Status: Not on file History of Presenting Illness Tiana Martínez is a 79 year old male transferred from [facility] he presented with chief complaint of dyspnea. Patient reports that several weeks ago he presented to [facility] and what day was diagnosed [...] Zithromax. The patient was [facility], Dr. Sam [...] of skin, thyroid cancer Upon arrival to [facility], the patient was hemodynamically stable w/ active complaints of SOB. His T was 36.8 ?C (98.2 ?F), BP was 139/75 and his pulse was 103, RR was 18 and oxygen saturation is 99% on 2L O2. Denies fever, chil ls, palpitations, lightheadedness/dizziness, chest pain, abdomin al pain, n/v/d, pain or discomfort with urination. Endorses SOB. Comp lained of the restrictive visitation rules at [facility]. 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 2185-4143 - COPD (chronic obstructive pulmonary disease) ([facility]) - CVA (cerebral vascular accident) ([facility]) 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 - Diverticulosis of colon (without mention of hemorrhage) - DM (diabetes mellitus) ([facility]) - Hemorrhage of gastrointestinal tract, unspecified - Hypercholesteremia - Lung cancer (HCC) - Sebaceous cyst knee - Sebaceous cyst arm pit - Sebaceous cyst back PAST SURGICAL HISTORY Procedure Laterality Date - COLONOSCOP W/ OR W/O BRSH SPEC 06/14/07 [facility] inpt FAMILY HISTORY Problem Relation Age [...] medina DATE: 10/31/2019 TIME: 9:36 PM PAGER: [phone] This is a preliminary note which reflects the assessment of the authoring medicine resident only. The patient remains to be seen by an d discussed with oncology staff, at which time the final assessment and recommendations may be edited. gasv + all on 10-30 Base Excess 5 mmol/L [facility] ([facility]11[facility] Comment: Performed By: #### VALLBG ## ##[facility] [place], [place] [phone] Blood Gas Comm, Gerson . Normal 10-31-2019 [facility] (50808) Comment: Performed By: #### VALLBG ## ##[place] [address] [address] [place], [place] [phone]- [phone] Calcium [Mass/Vol] 1.33 1.08-1.30 mmol/L High 10-31-2019 [facility] (86149) Comment: Performed By: #### VALLBG ## ##[place] [address] [address] [place], [place] [phone] Carboxyhemoglobin,Gerson 2.1 <2.1 % High 10-31-19 20 [facility] (03174) Comment: Performed By: #### VALLBG ## ##[place] [address] [address] [place], [place] [phone] CO2 [Moles/Vol] 31 25-29 mmol/L High 10-31-[address] [facility] (06789) Comment: Performed By: #### VALLBG ## ##[place] [address] [address] [place], [place] [phone]- [phone] Glucose [Mass/Vol] 151 60-105 mg/dL High 10-31-2019 [facility] (62458) Comment: Performed By: #### VALLBG ## ##[place] [address] [address] [place], [place] [phone] HCO3 (Bld) [Moles/Vol] 30 24-28 mmol/L High 020 [facility] (28583) Comment: Performed By: #### VALLBG ## ##[place] [address] [address] [place], [place] [phone] Hematocrit (Bld) [Volume 23.5 39.0-51.0 % Low 10-30 [facility] fraction] (98642) Comment: Performed By: #### VALLBG ## ##[place] [address] [address]Cleveland[place], [place] [phone] Hemoglobin (Bld) 7.5 13.0-17.0 g/dL Low 10-31-2019 [facility] [Mass/Vol] [place] (20000) Comment: Performed By: #### VALLBG ## ##[place] [address] [address]C[facility] hospitalandGerm[facility], [place] [phone]- [phone] Lactate [Moles/Vol] 2.1 0.5-2.2 mmol/L Normal 10-31-2019 [facility] (87635) Comment: Performed By: #### VALLBG ## ##[place] [address] [address] [place], [place] [phone] Methemoglobin 0.8 <1.6 % Normal 10-31-2019 [facility] (30708) Comment: Performed By: #### VALLBG ## ##[place] [address] [address] [place], [place] [phone]- [phone] O2 Administered 24% Normal 10-31-[address] [facility] (32920) Comment: Performed By: #### VALLBG ## ##[place] [address] [address] [place], [place] [phone]- [phone] Oxygen (Bld) [Partial 38 35-45 mm Hg Normal 10-31-19 20 [facility] pressure] (64259) Comment: Performed By: #### VALLBG ## ##[place] [address] [address], [place] [phone]- [phone] Oxyhemoglobin, Gerson. 60 60-85 % Normal 10-31-2019 [facility] (73863) Comment: Performed By: #### VALLBG ## ##[place] [address] [address], [place] [phone] pCO2 49 42-55 mm Hg Normal 10-31-2019 [facility] (32103) Comment: Performed By: #### VALLBG ## ##[place] [address] [address] [place], [place] [phone]- [phone] pCO2, Temp Correct 49 42-55 mm Hg Normal 10-31-2019 [facility] (18978) Comment: Performed By: #### VALLBG ## ##[place] [address] [address] [place], [place] 42[address]8713- [phone] pH (Bld) 7.40 7.32-7.42 [pH] Normal 10-31-2019 [facility] (76326) Comment: Performed By: #### VALLBG ## ##[place] [address] [address] [place], [place] [phone]- [phone] pH, Temp Corrected 7.40 7.32-7.42 Normal 10-31-2019 [facility] (71798) Comment: Performed By: #### VALLBG ## ##[address] [place], [place] [phone]- [phone] pO2, Temp Corrected 38 35-45 mm Hg Normal 10-31-2019 [facility] (69242) Comment: Performed By: #### VALLBG ## ##[address] [phone]- [phone] Potassium [Moles/Vol] 3.5 3.5-5.0 mmol/L Normal 10-31-19 [facility] (84668) Comment: Performed By: #### VALLBG ## ##[address] [phone]- [phone] Sodium [Moles/Vol] 148 136-144 mmol/L High 10-31-2019 [facility] (04887) Comment: Performed By: #### VALLBG ## ##[place] [address] [address], [place] [phone]- [phone] expedited covid19 o n 2019-10-31 COVID 19 Result Negative for Negative for Normal 10-31-19 [facility] INDUSTRIAL MACHINE SYSTEM TECHNICIAN COVID19 (SARS COVID19 (SARS Cl maricel (99157) CoV2) by PCR. CoV2) by PCR. Comment: Result Comment: This test hoang s been authorized by FDA under an Emergency Use Authorization (EUA). Performed By: #### EXCOVD ## ##[facility] [address] [place], [place] [phone]- [phone] COVID 19 Source INDUSTRIAL MACHINE SYSTEM TECHNICIAN Nasopharyngeal Swab Normal 0 10-31-2019 [facility] (97993) Comment: Performed By: #### EXCOVD ## ##[facility] [address] [place], [place] [phone]- [phone] ecg complete on ECG COMPLETE NAME : TIANA MARTÍNEZ Normal 10-31-19 [facility] PID : [id number] Bladimir evans ([id number]) : 1940 Gender : Male Race : ORD : [id number] Procedure Date : Oct 31 2019 13:04:31 Edit Date : Nov 03 2019 14:12:18 Diagnosis:SINUS RHYTHM WITH PREMATURE ATRIAL COMPLEXES OTHERWISE NORMAL ECG Confirmed by MD SCRUGGS HEBA ([id number]) on 11/03/2019 2:12:17 P M Ventricular Rate : 91 BPM Atrial Rate : 91 BPM P-R Interval : 150 ms QRS Duration : 86 ms Q-T Interval : 356 ms QTC Calculation(Bazett) : 437 ms P [place] : 59 degrees R [place] : 53 degrees T [place] : 63 degrees Test Reason : Arrhythmia Location : 53 : H50 22 Overread By : MD SCRUGGS HEBA Edited By : MD SCRUGGS HEBA Referred By : RADU JACK Acquired by : ERIKA DIAZ ct-cta chest w/wo contrast import on 2019-10-31 CT-CTA Chest Images were obtained outside of [facility] Normal 10-31-2019 [facility] W/WO Contrast [id number] [place] ([id number]) IMPORT ct-cta chest w/wo contrast - overread on 2019-10-31 CT-CTA Chest * * *Final Report* * * Normal 10-12 [facility] W/WO Contrast - * * * SEE BOTTOM OF REPORT FOR ADDENDED TEXT * * * [place] OVERREAD DATE OF EXAM: Oct 31 2019 12:00AM ([id number]) OUT 0002 - CT OUTSIDE CD DICOM IMPORT -NBNR / [id number] PROCEDURE REASON: Tumor Board Discussion * * [...] a pack for 50 years) transferred from [facility] where he presented?with chief complaint of dyspnea [...] 5.7 x 3.4 cm. Transferred to the [facility] at the suggestion of his outpatient [...] CT dated 12/24 . RESULT: Limitations: None. Pension Manager (topogram) images: Subtotal left upper lobe consolidat [...] be metastatic. Attention on follow-up r ecommended. Animal Groomer: SCOOBY Transcribe Date/Time: Nov 03 2019 9:55A Dictated by : NIMO WARREN MD This examination was interpreted and the report reviewed and electronically signed by: NIMO WARREN MD on Nov 03 2019 9:43AM EST This document has been addended by: NIMO WARREN MD on Nov 03 2019 9:57AM EST [id number] comp metabolic panel on 2019-10-31 Albumin [Mass/Vol] 3.0 3.9-4.9 g/dL Low 10-31-2019 [facility] (97517) Comment: Performed By: #### PT, CMP, CBCDIF ####[place] [address] [address] [address] ALP [Catalytic activity/Vol] 108 38-113 U/L Normal 0 10-31-2019 [facility] (28577) Comment: Performed By: #### PT, CMP, CBCDIF ####[place] [address] ALT [Catalytic activity/Vol] 56 10-54 U/L High 0 10-31-2019 [facility] (24909) Comment: Performed By: #### PT, CMP, CBCDIF ####[place] [address] Anion gap [Moles/Vol] 11 9-18 mmol/L Normal 10-31-19 20 [facility] (86905) Comment: Performed By: #### PT, CMP, CBCDIF ####[place] [address] AST [Catalytic activity/Vol] 141 14-40 U/L High 0 10-31-2019 [facility] (13890) Comment: Performed By: #### PT, CMP, CBCDIF ####[place] [address] Bilirubin [Mass/Vol] 0.4 0.2-1.3 mg/dL Normal 0 [facility] (18550) Comment: Performed By: #### PT, CMP, CBCDIF ####[place] [address] Calcium [Mass/Vol] 9.4 8.5-10.2 mg/dL Normal 10-31-2019 [facility] (17103) Comment: Performed By: #### PT, CMP, CBCDIF ####[place] [address] Chloride [Moles/Vol] 107 97-105 mmol/L High 0 [facility] (40001) Comment: Performed By: #### PT, CMP, CBCDIF ####[facility] [address] AveCPeter [place] [address] [phone] CO2 [Moles/Vol] 28 22-30 mmol/L Normal 10-31-[address] [facility] (52370) Comment: Performed By: #### PT, CMP, CBCDIF ####[facility] [address] AveCPeter [place] [address] [phone] Creatinine [Mass/Vol] 1.18 0.73-1.22 mg/dL Normal 10-31-19 20 [facility] (37890) Comment: Performed By: #### PT, CMP, CBCDIF ####[facility] [address] AveCP[address] [place] [address] [phone] eGFR- Amer. >60 Normal 10-31-2019 [facility] (21685) Comment: Performed By: #### PT, CMP, CBCDIF ####[facility] [address] AveCP[address] [place] [address] [phone] GFR/1.73 sq M predicted among 59 . Normal 10-31-2019 [facility] non-blacks MDRD (S/P/Bld) [Vol (01335) rate/Area] Comment: Result Comment: eGFR (Estima alejandrina [...] GFR. Performed By: #### PT, CMP, CBCDIF ####[facility] [address] AveCPeter [place] [address] [phone] Glucose [Mass/Vol] 145 74-99 mg/dL High 10-31-2019 [facility] (33727) Comment: Result Comment: The [place] Diabetes Association (ADA) provides guidance for cutoff [...] for diagnosis of diabetes. Reference: Standards of [facility] Care in Diabetes 2016, [place] [employer] Association. Diabetes Care. 2016.39(Suppl 1). Performed By: #### PT CMP, CBCDIF ####[place] [id number] [place] [address] [phone] Potassium [Moles/Vol] 3.4 3.7-5.1 mmol/L Low 10-31-19 20 [facility] (95589) Comment: Performed By: #### PT CMP, CBCDIF ####[place] [address] [place] [address] [phone] Protein [Mass/Vol] 5.5 6.3-8.0 g/dL Low 10-31-2019 [facility] (51091) Comment: Performed By: #### PT, CMP, CBCDIF ####[facility] [address] [place] [address] [phone] Sodium [Moles/Vol] 146 136-144 mmol/L High 10-31-2019 [facility] (67624) Comment: Performed By: #### PT, CMP, CBCDIF ####[facility] [place] [address] [phone] Urea nitrogen [Mass/Vol] 41 9-24 mg/dL High 10-30 [facility] (53260) Comment: Performed By: #### PT, CMP, CBCDIF ####[place] [address] Ave[address] [place] [address] [phone] cbc and differential on 2019-10-31 Abs Baso 0.00 <0.11 k/uL Normal 10-31-2019 [facility] (19219) Comment: Performed By: #### PT, CMP, CBCDIF ####[place] [address] [address] [place] [address] [phone] Abs [place] 0.37 <0.87 k/uL Normal 10-31-2019 [facility] (73180) Comment: Performed By: #### PT, CMP, CBCDIF ####[place] [address] [address] [place] [address] [phone] Abs Neut 6.69 1.45-7.50 k/uL Normal 10-31-2019 [facility] (12388) Comment: Performed By: #### PT, CMP, CBCDIF ####[place] [address] [address] [place] [address] [phone] Absolute nRBC 1.10 <0.01 k/uL High 10-31-2019 [facility] (85080) Comment: Performed By: #### PT, CMP, CBCDIF ####[place] [address] [address] [place] [address] [phone] ANC(includeSEG+BAND) 6.69 k/uL Normal 0 [facility] (19361) Comment: Performed By: #### PT, CMP, CBCDIF ####[place] [address] [place] [address] [phone] Anisocytosis Ql (Bld) Present Normal 10-31-19 20 [facility] (30634) Comment: Performed By: #### PT, CMP, CBCDIF ####[place] [address] [address] [place] [address] [phone] Basophils/100 WBC (Bld) 0.0 % Normal 2019 [facility] (00625) Comment: Performed By: #### PT, CMP, CBCDIF ####[place] [address] [address] [place] [address] [phone] DTYPE Manual Diff Normal 10-31-2019 [facility] (07725) Comment: Performed By: #### PT, CMP, CBCDIF ####[place] [address] [address] [place] [address] [phone] Eosinophils (Bld) [#/Vol] 0.09 <0.46 k/uL Normal 10-12 [facility] (39165) Comment: Performed By: #### PT, CMP, CBCDIF ####[place] [address] [address] [place] [address] [phone] Eosinophils/100 WBC (Bld) 1.0 % Normal 10-12 [facility] (10523) Comment: Performed By: #### PT, CMP, CBCDIF ####[address] [address] Erythrocyte distribution 29.2 11.5-15.0 % High 10-30 [facility] width (RBC) [Ratio] [place] (14641) Comment: Performed By: #### PT, CMP, CBCDIF ####[address] [place] [address] Hematocrit (Bld) [Volume 25.4 39.0-51.0 % Low 10-30 [facility] fraction] (40527) Comment: Performed By: #### PT, CMP, CBCDIF ####[place] [address] [address] [place] [address] Hemoglobin (Bld) 7.2 13.0-17.0 g/dL Low 10-31-2019 [facility] [Mass/Vol] [place] (39842) Comment: Performed By: #### PT, CMP, CBCDIF ####[place] [address] [address] [place] [address] [phone] Lymphocytes (Bld) [#/Vol] 1.74 1.00-4.00 k/uL Normal 10-12 [facility] (11075) Comment: Performed By: #### PT, CMP, CBCDIF ####[place] [address] [phone] Lymphocytes/100 WBC (Bld) 19.0 % Normal 10-12 [facility] (43320) Comment: Performed By: #### PT, CMP, CBCDIF ####[place] [address] [phone] MCH (RBC) [Entitic mass] 22.9 26.0-34.0 pG Low 10-30 [facility] (24095) Comment: Performed By: #### PT, CMP, CBCDIF ####[place] [address] [phone] MCHC (RBC) [Mass/Vol] 28.3 30.5-36.0 g/dL Low 10-31-19 [facility] (74619) Comment: Performed By: #### PT, CMP, CBCDIF ####[address] [address] [place] [address] [phone] MCV (RBC) [Entitic vol] 80.9 80.0-100.0 fL Normal 10-30 [facility] (37931) Comment: Performed By: #### PT, CMP, CBCDIF ####[place] [address] [place] [address] [phone] Stone% 3.0 % Normal 10-31-2019 [facility] (37826) Comment: Performed By: #### PT, CMP, CBCDIF ####[address] [place] [address] [phone] Monocytes/100 WBC (Bld) 4.0 % Normal 2019 [facility] (10329) Comment: Performed By: #### PT, CMP, CBCDIF ####[place] [address] [address] [place] [address] [phone] Neutrophils/100 WBC (Bld) 73.0 % Normal 10-12 [facility] (10720) Comment: Performed By: #### PT, CMP, CBCDIF ####[place] [address] [address] [place] [address] [phone] NRBCs 12 0 /100 WBC High 10-31-2019 [facility] (92879) Comment: Performed By: #### PT, CMP, CBCDIF ####[address] [place] [address] [phone] Ovalocytes Few Normal 10-31-2019 [facility] (41295) Comment: Performed By: #### PT, CMP, CBCDIF ####[address] [place] [address] [phone] Platelet mean <<DO NOT REPORT>> 9.0-12.7 Normal 10-31-19 20 [facility] volume (Bld) [place] ([address]17) [Entitic vol] Comment: Performed By: #### PT, CMP, CBCDIF ####[place] [address] [phone] Platelets (Bld) [#/Vol] 41 150-400 k/uL Low 2019 [facility] (79191) Comment: Result Comment: Result check ed and verified No clot detected. Performed By: #### PT, CMP, CBCDIF ####[address] [place] [address] [phone] Platelets (Bld) Platelet estimate Normal 2019 [facility] [#/Vol] decreased [facility] (04966) Comment: Performed By: #### PT, CMP, CBCDIF ####[address] [address] [phone] Polychromasia Slight Normal 10-31-2019 [facility] (65971) Comment: Performed By: #### PT, CMP, CBCDIF ####[place] [address] [phone] RBC (Bld) [#/Vol] 3.14 4.20-6.00 m/uL Low 10-31-2019 [facility] (52093) Comment: Performed By: #### PT, CMP, CBCDIF ####[address] [place] [address] [phone] RBC Fragments Few Normal 10-31-2019 [facility] (61017) Comment: Performed By: #### PT, CMP, CBCDIF ####[place] [address] [phone] TSH Qn Present Normal 10-31-2019 [facility] (20981) Comment: Performed By: #### PT, CMP, CBCDIF ####[place] [address] [phone] WBC (Bld) [#/Vol] 9.17 3.70-11.00 k/uL Normal 10-31-2019 [facility] (64597) Comment: Performed By: #### PT, CMP, CBCDIF ####[place] [address] [phone] blood culture on 31-10-18 Bacteria identified Cx Culture Result - No Normal 10-31-2019 [facility] Nom (Bld) growth 5 days [place] (77373) Comment: Performed By: #### BLCUL ### [address] [phone] cr-chest 1 view (portable) import on 2019-10-30 CR-Chest 1 View Images were obtained outside of [facility] Normal 10-30-2019 [facility] (Portable) IMPORT [id number] [place] ([id number]) cnpn on 2019-10-29 CNPN Telephone (RADTMN) Normal 10-29-2019 [place] [facility] TANYATIANA ([id number]) 1940 M [place] Date Time Provider Department (56449) 10/29/19 CARMELO ROSEN (RN) RADSARAN During your [...] Kiser - Fully Assessed 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] 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: CT review Prescriptions as of 10/29/2019 [...] on 2019-10-21 CNPN Telephone (RADTMN) Normal 10-21-2019 [place] [facility] MARTÍNEZTIANA ([id number]) 1940 [facility] Time Provider Department () 10/21/19 CARMELO [...] Kiser - Fully Assessed 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 to follow up on [...] by CARMELO ROSEN on 10/20/19 CNPN Telephone (Tok3nN) Normal 10-20-2019 [place] [facility] TIANA MARTÍNEZ ([id number]) 1940 M [place] Date Time Provider Department (26697) 10/20/19 SAM SANCHEZ RADMIMI During your visit today, we recorded the following informati on about you: Dixie Harrell [facility] 10/20/2019 1:27 PM Signed This form is used for MAIN CAMPUS APPOINTMENTS ONLY. Is this request for a Main [place] PET sc an appointment? Yes: Taker Off Hemp Fiber: Dixie Harrell Pss Requesting Person DIXIE HARRELL: [phone] Area Code + Phone/Page r: [phone] Who do we call to schedule this [...] Thigh Diagnostic CT W/Contrast: No Comments for [employer] Director: na ROUTE TO SCHEDULERS POOL P PET VOUCHER CLERK or P SC SPECIAL STUDIES Manolo Fuller 10/21/2019 9:18 AM Signed Spoke with son to schedule pet. Allergies As of Date: 10/20/2019 Noted Allergy Reaction BEES 08/01/2007 Date Reviewed: 06/14/2019 Reviewed by: Cesilia Kiser - Fully Assessed Reason for Visit: Nm Pet Request [3688] Prescriptions as of 10/20/2019 Sig: ELIQUIS 5 [...] Encounter Status:Closed by MANOLO FULLER on [facility]/21/[facility] (RADTMN) Normal 10-18-2019 [place] [facility] TIANA MARTÍNEZ ([id number]) 1940 M [facility] Time Provider Department (87555) 10/18/19 OLIVER SCHUMACHER (RES) RADTMN During your visit today, we recorded the following informati on about you: Oliver Schumacher MD, MD 10/18/2019 1:44 PM Signed Received meet-me line call from Tiana Martínez's son. The patient presented to [facility] yesterday with AMS. Workup revealed a new l eft lung mass suspicious for a new primary lung cancer vs metastasis of hi s previously treated lung cancer. The patient will ob tain imaging and radiology reports and send to Dr. Sanchez' office. Dr. Sanchez and team notified . Oliver Schumacher MD Radiation Oncology Resident [id number] Allergies As of Date: 10/18/2019 Noted Allergy [...] on 10/18/19 cnpn on 2019-09-01 CNPN Telephone (Tok3nN) Normal 09-01-2019 [place] [facility] TIANA MARTÍNEZ ([id number]) 1940 [facility] Date Time Provider Department (78823) 09/01/19 CARMELO ROSEN (RN) PATRIZIA During your visit today, we recorded the following informati on about you: Carmelo Rosen RN, RN 09/01/2019 1:47 PM Signed Returned call to Mr. Martínez's son, iTana. He was concerned about some lab work [...] a Radiation oncologist, he would need a wi dical oncologist. Dr. Sanchez recommended Dr. 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 Shy Alvarado [facility] 07/02/2019 4:02 PM Signed CD READY FOR [facility] AT [facility] RAD[facility] CD READY FOR [facility] AT [facility] RADIOLOGY Allergies As of Date: 07/02/2019 Noted [...] 08/11/19 progress on 2019-05 PROGRESS HNO ID: [id number] Normal 06-11-2019 [facility] Author: Cesilia Kiser [place] Service: ? ([id number]) Author Type: Physician Type: Progress Notes Filed: [...] of face ? ? 5 total areas 3563-4842 - COPD (chronic obstructive pulmonary disease) (HCC) [...] OR W/O BRSH SPEC ? 06/14/07 ? [facility] inpt TURP Right knee surgery Eye [...] [facility] [...] JOSE F Office Visit (TONY) Normal 06-11-[address] [place] [address] [facility] TIANA MARTÍNEZ ([id number]) 1940 [facility] Date Time Provider Department ([id number]) 06/11/19 1:10 PM CESILIA KISER During your [...] of face ? ? 5 total areas 2706-2840 - COPD (chronic obstructive pulmonary disease) (HCC) [...] Laterality Date - COLONOSCOP W/ OR W/O [facility] SPE[facility] ? 06/14/07 ? [facility] inpt TURP Right knee surgery Eye [...] 06/14/19 progress on 2019-05 PROGRESS HNO ID: [id number] Normal 05-26-2019 [facility] Author: Sam Sanchez [place] ([id number]) Service: ? Author Type: Physician Type: Progress [...] pathology on 2019-05-20 SURGICAL Specimen originated from [facility] Normal 05-20-2019 [place] PATHOLOGY Specimen #: [id number] Clinic Submitting Physician: SIMI SAMPSON M.D. [place] ([id number]) FINAL DIAGNOSIS Lung, right upper lobe, needle [...] one ca ssette. Gross examination performed at [facility], [address] [place] [address] 05/20/2019 9:12:14 PM Date of Report: 05/21/2019 Date of Procedure: 05/20/2019 Date of Receipt: 05/20/2019 Submitted by: SIMI SAMPSON M.D. Additional Physician(s): SAM SANCHEZ MD Location: [facility] Diagnostic interpretation performed at [place] [address]. CLIA Number: [id number] pt ed on 2019-05-20 PT ED HNO ID: [id number] Normal 05-20-2019 [facility] Author: Abena JasmineRn) JUNIE Waters [place] ([id number]) Service: Radiology Author Type: Registered Nurse Type: [...] RN progress on 2019-05 PROGRESS HNO ID: [id number] Normal 05-20-2019 [facility] Author: Jacqueline Goldsmith)(Hist) PERI [place] ([id number]) Service: Radiology Author Type: Clinical [employer] Type: Progress Notes Filed: 05/20/2019 1:37 PM [...] nursing prog on NURSING PROG HNO ID: [id number] Normal 05-20-19 [facility] Author: Abena (Junie) JUNIE Waters [place] ([id number]) Service: Radiology Author Type: Registered Nurse Type: [...] history physical on 2019-05-20 HISTORY HNO ID: [id number] Normal 05-20-2019 [place] PHYSICAL Author: Sophie Melton (Fel) [facility] Service: Cardiovascular Medicine [place] Author Type: Fellow ([id number]) Type: HANDP Filed: 05/20/2019 12:41 PM Note [...] 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 7081-8557 - COPD (chronic obstructive pulmonary disease) (HCC) - 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 - Diverticulosis of colon (without mention of hemorrhage) - DM (diabetes mellitus) ([facility]) - Hemorrhage of gastrointestinal tract, unspecified - Hypercholesteremia - Lung cancer (HCC) - Sebaceous cyst knee - Sebaceous cyst arm pit - Sebaceous cyst back PAST SURGICAL HISTORY Procedure Laterality Date - COLONOSCOP W/ OR W/O [facility]SH SPEC 06/14/07 [facility] inpt Prior to Admission medications as [...] May 20, 2019 TIME: 12:36 PM PAGER: [id number] ct biopsy lung on 2 CT BIOPSY LUNG * * *Final Report* * * Normal [facility] DATE OF EXAM: May 20 2019 2:12PM [place] ([id number]) [facility] 2009 - CT BIOPSY LUNG [...] sterile sheet, hand hygiene and cutaneous antisepsis). [facility] factory local anesthesia. Under CT-fluoroscopic guidance, a [...] the: attending radiologist (Dr. Sampson), with an orthodontic assistant (Dr. Ab rowley). The attending radiologist performed the following procedural activities: Procedure start time:1324 Procedure end time: 1357 Sedation: 2 mg Versed and 100 mcg fentanyl Start time: 1319 End time: 1400 Samples: 4 core biopsies to surgical pathology in formalin. DLP: 247 mGy*cm IMPRESSION: CT guided core sampling of right upper lobe nodu le. Animal Groomer: SCOOBY Transcribe Date/Time: May 20 2019 3:23P Dictated by : SOPHIE MELTON MD This examination was interpreted and the report reviewed and electronically signed by: SIMI SAMPSON MD on May 20 2019 5:05PM EST [id number] protime on PT Coag (PPP) [Time] 10.4 9.7-13.0 sec Normal 0 [facility] (61486) Comment: Performed By: #### CBC, PT # ###[facility] [place], [place] [phone] PT Coag (PPP) [Time] 1.0 0.9-1.3 s Normal 0 [facility] (52809) Comment: Result Comment: Vitamin K An tagonist (VKA) Therapeutic Range: INR 2 to 3 (Target INR of 2.5) Note: For patients treated w ith VKA drugs, such as warfarin, the [place] [employer] 2012 Guideline recommends a therapeutic INR range of 2 to 3 (target INR of 2.5). This recommendation includes high-risk patients with antiphospholipid syndrome with previous arterial or venous thromboembolism, current-generation mechanical or bioprosthetic aortic heart valve replacement. Note: Patients with farm machinery set up mechanic al aortic valve replacement and additional risk factors for thromboembolic events (atrial fibrillation, previous thromboembolism, LV dysfunction, hypercoagulable conditions) or an older generation mecha nical AVR (i.e., ball in-Cage) or any mechanical MVR should have a INR therapeutic range of 2.5 to 3.5 (target INR of 3). Vitaliy GH, et al. Chest 2012 , 141:7S-47S Janet MCNEAL et al. [facility] 20 17, 70: 252-289 Performed By: #### CBC, PT # ###[facility] [place], [place] [phone] nursing prog on NURSING HNO ID: [id number] Normal 05-15-2019 [place] PROG Author: Jackie Lopez) Eileen SENIOR ENGINEERING MANAGER Clinic Service: ? [place] Author Type: LICENSED NURSE ([id number]) Type: Nursing Progress Note Filed: 05/15/2019 10:47 AM Note Text: Pre-procedure instructions: Contacted Tiana Martínez and confirmed appt. for Biopsy Lung scheduled on 05/20/2018, at [facility]. Diet: Do not eat any solid [...] to be drawn by 05/19/[address] [facility] ic Lab. Arrival: Please bring your Photo ID and Insurance Card. A general consent may need to be signed. Arrival at 10:30amn to desk QB-1 ([facility]) and check in for your procedure. Your anticipated procedure start time will be between 12:00p m AND 12:30pm. Sql Programmer/Transportation: How will you be arriving for your procedure? private car. If you will be arriving at [facility] via ambulance or public transportation, please call to discuss. You will need a responsible adult to accompany you to and fr om the procedure. Your set key driver is required to stay with you until you are taken into the Procedure room. Recovery expectations: You will be in the recovery room post procedure for a minimu m of 1 Hour. Special concerns: Do you use CPAP or BPAP? No Written instructions provided to patient via Chromahart If you have any questions please call [phone] cbc on 2019-05-15 Absolute nRBC <0.01 <0.01 Normal 05-15-2019 [facility] (94298) Comment: Performed By: #### CBC, PT # ###[facility] [address] [place], [place] [phone] Erythrocyte distribution 14.6 11.5-15.0 % Normal 05-15 [facility] width (RBC) [Ratio] [place] (38407) Comment: Performed By: #### CBC, PT # ###[place] [address] [address] [place], [place] [phone] Hematocrit (Bld) [Volume 39.0 39.0-51.0 % Normal 05-15 [facility] fraction] [place] (24584) Comment: Performed By: #### CBC, PT # ###[place] [address] [place], [place] [phone] Hemoglobin (Bld) 12.6 13.0-17.0 g/dL Low 05-15-2019 [facility] [Mass/Vol] [place] (53037) Comment: Performed By: #### CBC, PT # ###[address] [place] [place], [place] [phone] MCH (RBC) [Entitic mass] 28.7 26.0-34.0 pG Normal 05-15 [facility] (29858) Comment: Performed By: #### CBC, PT # ###[address] [place], [place] [phone] MCHC (RBC) [Mass/Vol] 32.3 30.5-36.0 g/dL Normal 05-15-19 20 [facility] (19966) Comment: Performed By: #### CBC, PT # ###[address] [place] [place], [place] [phone] MCV (RBC) [Entitic vol] 88.8 80.0-100.0 fL Normal 05-15 [facility] (35883) Comment: Performed By: #### CBC, PT # ###[address] [place] [place], [place] [phone] Platelet mean volume 11.8 9.0-12.7 fL Normal 0 [facility] (Bld) [Entitic vol] [place] (10856) Comment: Performed By: #### CBC, PT # ###[address], [place] [phone] Platelets (Bld) [#/Vol] 249 150-400 k/uL Normal 2019 [facility] (53526) Comment: Performed By: #### CBC, PT # ###[place] [address] [place], [place] [phone] RBC (Bld) [#/Vol] 4.39 4.20-6.00 m/uL Normal 05-15-2019 C [facility] (45013) Comment: Performed By: #### CBC, PT # ###[place] [address] [place], [place] [phone] WBC (Bld) [#/Vol] 9.36 3.70-11.00 k/uL Normal 05-15-2019 [facility] (43631) Comment: Performed By: #### CBC, PT # ###[facility] [place], [place] [phone] hosp on 2019-05-12 HOSP Patient:Tiana Martínez Normal 05-12-20 19 [facility] MRN: [place] ([id number]) Height:5' 9(1.753 m) Weight:195 lb (88.451 kg) [...] 39.0 % 05/15/2019 51.0 39.0 Progress Notes ([facility]): Kaia East RN 04/24/2019 1:56 PM [...] 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 medical experiences that are tangential [...] this pat ient encounter was spent in [id number] discussion regarding the patient's past medical history [...] type (HCC ) (Z79.01) Current use of custodial anticoagulation Return to Clinic: The patien t [...] 03/22/16.?? INTERVAL HISTORY: [facility] company [facility] [...] MD progress on 2019-04 PROGRESS HNO ID: [id number] Normal 04-24-2019 [facility] Author: Cesilia Kiser [place] Service: ? 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 9012-3818 - COPD (chronic obstructive pulmonary disease) ([facility]) - CVA (cerebral vascular accident) ([facility]) 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 - Diverticulosis of colon (without mention of hemorrhage) - DM (diabetes mellitus) ([facility]) - Hemorrhage of gastrointestinal tract, unspecified - Hypercholesteremia - Lung cancer (HCC) - Sebaceous cyst knee - Sebaceous cyst arm pit - Sebaceous cyst back Right eye blindness PAST SURGICAL HISTORY Procedure Laterality Date - COLONOSCOP W/ OR W/O [facility] SPEC 06/14/07 [facility] inpt TURP Right knee surgery Eye [...] Sister - None Sister Nursing Notes: Kaia aEst RN 04/24/2019 1:56 PM Signed REVIEW OF [...] in his discussion and often discusses his [facility] medical experiences that are tangential [...] to return to the clinic at his [facility] if he wishes to schedule for surgery. 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 I have confirmed and edited as necessary, the PFSH and ROS o btained by others. 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 9354-7685 - COPD (chronic obstructive pulmonary disease) (HCC) - CVA (cerebral vascular accident) ([facility]) 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 - Diverticulosis of colon (without mention of hemorrhage) - DM (diabetes mellitus) ([facility]) - Hemorrhage of gastrointestinal tract, unspecified - Hypercholesteremia - Lung cancer (HCC) - Sebaceous cyst knee - Sebaceous cyst arm pit - Sebaceous cyst back Right eye blindness PAST SURGICAL HISTORY Procedure Laterality Date - COLONOSCOP W/ OR W/O [facility] SPEC 06/14/07 [facility] inpt TURP Right knee surgery Eye [...] this pat ient encounter was spent in ypns-vo-aurv discussion regarding the patient's past medical history [...] type (HCC ) (Z79.01) Current use of custodial anticoagulation Return to Clinic: The patien t [...] 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 Author Type: Physician Type: Progress [...] for potentially ongoing active disease. At the [facility] time PET scan demonstrates a slight reduction [...] for potentially ongoing active disease. At the [facility] time PET scan demonstrates a slight reduction [...] MD progress on 2019-03 PROGRESS HNO ID: [id number] Normal 04-01-2019 [place] Author: Jennifer Pink ([facility] Service: Nuclear Medicine ([id number]) Author Type: [employer] Type: Progress Notes Filed: 04/01/2019 8:26 AM [...] has been calibrated to be traceable to IDPramana. An eGFR <60 mL/min/1.73m2 for >3 months is consistent with c hronic kidney disease. Refer to KDOQI guidelines for clinical interpretati on. In patients with unstable renal function, e.g. those with [place] kidney injury, the eGFR may not accurately reflect actual GFR. eGFR- Date Value Ref Range Status 01/13/2016 >60 Final P.O.C.T. RESULTS: N/A April 01, [address] PERFORMED: No IV SITE: Ambulatory: A peripheral IV was started in the [facility] t antecubital site with a Angio cath: [...] safety can be found using is link: [email or web address]%20Medicine%[email or web address] SIGNATURE: Rei Suarez PATIENT NAME: Tiana Martínez DATE: April 01, 2019 TIME: 8:25 AM PAGER/CONTACT #: co pet/ct skull-thigh subq on 2019-04-01 SC PET/CT * * *Final Report* * * Normal [address] [place] [address] SKULL-THIGH SUBQ * * * SEE BOTTOM OF REPORT FOR ADDENDED TEXT * * * ([id number]) DATE OF EXAM: Apr 01 2019 10:03AM MDP 0063 - SC PET/CT SKULL-THIGH SUBQ / 4 PROCEDURE REASON: [...] thyroid nodule; ultras onographic correlation is recommended. Animal Groomer: SCOOBY Transcribe Date/Time: Apr 01 2019 1:39P Dictated by : REMI GRAYSON MD This examination was interpreted and the report reviewed and electronically signed by: REMI GRAYSON MD on Apr 01 2019 1:34PM EST This document has been addended by: REMI GRAYSON MD on 2018 1:39PM EST [id number] progress on 2018-12 PROGRESS HNO ID: [id number] Normal 01-05-2019 [facility] Author: Sam Sanchez [place] Service: ? ([id number]) Author Type: Physician Type: Progress Notes Filed: [...] 2018-12-31 CNOV Office Visit (RADTMN) Normal 01-01-20 [place] [facility] TIANA MARTÍNEZ ([id number]) 1940 M [place] Date Time Provider Department ([id number]) 12/31/18 10:00 AM SAM SANCHEZ RADSARAN During [...] and more avid may need to con roller leveler biopsy versus salvage therapy at that time. [...] and more avid may need to con roller leveler biopsy versus salvage therapy at that time. 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 Follow-up and Disposition History Recorded Encounter Status:Closed by SAM SANCHEZ MD on 01/05/19 us thyroid/parathyroid on 2018-12-24 US THYROID/PARATHYROID * * *Final Report* * * Santana mir 12-24-2018 [place] DATE OF EXAM: Dec 24 2018 10:02AM [facility] WRU 1048 - US THYROID/PARATHYROID / [place] PROCEDURE REASON: Nontoxic single thyroid nodule (04575) * * * * Physician Interpretation * [...] in the midportion of the left lobe. Animal Groomer: SCOOBY Transcribe Date/Time: Dec 25 2018 8:55A Dictated by : TIANA RAZO MD This examination was interpreted and the report reviewed and electronically signed by: TIANA RAZO MD on Dec 25 2018 8:59AM EST [id number] progress on 2018-12 PROGRESS HNO ID: [id number] Normal 12-24-2018 [facility] Author: Louann Ponce [facility] ([id number]) Service: ? Author Type: ? Type: Progress [...] 24, 2018 9:45 AM PROGRESS HNO ID: [id number] Normal 12-24-2018 [facility] Author: Jacqueline Garg (Ct) PERI [facility] [place] ([id number]) Service: ? Author Type: Clinical [employer] Type: Progress Notes Filed: 12/24/2018 9:03 AM [...] * *Final Report* * * Normal 12-24 [facility] IVCON DATE OF EXAM: Dec 24 2018 9:04AM [place] ([id number]) [facility] 0541 - CT CHEST WO IVCON [...] atory. Follow-up is suggested. No thoracic lymphadenopathy. Animal Groomer: PSCB Transcribe Date/Time: Dec 24 2018 2:54P [...] [id number] 6. Body temperature 98.6 [degF] 11-07-2019 [facility] ([id number]) Body temperature 98.6 [degF] 10-31-2019 [facility] (04011) Procedures Procedure Name Date Provider Location Antibody screen 11-08-2019 [facility] ([id number]) Comment: Performed By: #### TSCR #### [facility] [place], [place] [phone] Antibody screen 11-05-2019 [facility] ([id number]) Comment: Performed By: #### TSCR #### [facility] [id number] [place], [place] [phone] Antibody screen 11-02-2019 [facility] ([id number]) Comment: Performed By: #### TSCR #### [facility] [id number] [place], [place] [id number]- [phone] Antibody screen 11-01-2019 [facility] ([id number]) Comment: Performed By: #### TSCR #### [facility] [id number] [place], [place] [id number]- [phone] Summary Purpose Family History No Family [...] BE BASED ON THE PRIMARY CLINICAL RECORDS. [facility] provides no warranty or guarantee of the accuracy or completeness of information in this document. UNRECOGNIZED CONTENT PROVIDED BELOW FOR UNRECOGNIZED SECTION No Status Records FoundNo Status Records Found UNRECOGNIZED CONTENT PROVIDED BELOW FOR UNRECOGNIZED SECTION INFORMATION SOURCE DATE CREATED AUTHOR AUTHOR'S ORGANIZATIO N 04/01/2019 [facility] DATE CREATED AUTHOR AUTHOR'S ORGANIZATIO N 11/28/2019 [facility]
== END 2019-10-18 03:23 | disposition home or self-care (01) ==
PROVIDERS: Emergency Provider Emergency Medicine; PCP Family Medicine
DX: R91.8 Other nonspecific abnormal finding of lung field (principal); D50.0 Iron deficiency anemia secondary to blood loss (chronic); E86.0 Dehydration; N28.9 Disorder of kidney and ureter, unspecified; R44.1 Visual hallucinations; F17.200 Nicotine dependence, unspecified, uncomplicated; J44.9 Chronic obstructive pulmonary disease, unspecified; E78.5 Hyperlipidemia, unspecified; I48.0 Paroxysmal atrial fibrillation; I10 Essential (primary) hypertension; Z79.82 Long term (current) use of aspirin
CPT/HCPCS: 70450; 71045; 71250; 80048; 81001; 82962; 84484; 85025; 93005; 99284; J7040; A4216

== ENCOUNTER 2019-10-30 22:55 | Emergency (ER) | payer MEDICARE, BC, SELFPAY ==
[2019-10-30 22:57] VITALS: BP 155/85; PULSE 105; RESP 20; TEMP 36.8; O2SAT 98
--- NOTE | 2019-10-30 23:10 | RAD_ITS ---
STUDY: X-RAY CHEST REASON FOR EXAM: Male, 79 years old. Short of breath TECHNIQUE: Single AP portable view of the chest. COMPARISON: CT scan of 10/18/2019, chest x-ray 10/18/2019. FINDINGS: Note: Although not indicated on this requisition, this patient clearly has left-sided lung cancer. Please ensure that the history is correlated. Significant worsening appearance of the left lung since previous exam. Appearance suggests significant interval atelectasis and probable increase in size of a malignant left perihilar mass which is ill-defined and difficult to measure but is probably as much as 10 cm in greatest dimension. There is upward retraction of the left hilum. Probable nodular metastasis to the right apex, stable. Probable underlying COPD. Grossly normal heart size. RAD/Chest 1 View (Portable) IMPRESSION: Based on prior study since patient has left-sided lung cancer. However, this is not mentioned on the chest x-ray and therefore recommend correlation with history. Significant worsening of the left lung which is now diffusely opacified suggestive of pneumonia and atelectasis and possible postobstructive pneumonitis. Ill-defined left mid lung mass appears significantly larger. Electronically Signed: Gary Ellington MD at 23:49 EDT , Service support ,
--- NOTE | 2019-10-30 23:11 | EKG12_ITS ---
Test Reason : SOB Blood Pressure : / mmHG Vent. Rate : 101 BPM Atrial Rate : 101 BPM P-R Int : 194 ms QRS Dur : 086 ms QT Int : 350 ms P-R-T Axes : 084 062 080 degrees QTc Int : 453 ms Sinus tachycardia Otherwise normal ECG Confirmed by MARÍA CALDERA, TIN ([id number]), newspaper editor MINE MARQUES ([id number]) on 11/04/2019 10:56:46 AM Referred By: Confirmed By:TIN DANIEL MD
[2019-10-30 23:45] LABS: Hematocrit 26.5 % (40-54); Hemoglobin 7.5 g/dL (13.0-16.5); Mean Corp Hgb Conc 28.3 g/dL (32-36); Mean Corpuscular Hgb 23.1 pg (27.0-32.0); Mean Corpuscular Volume 81.8 fL (80-94); POSITIVE COUNT YES; POSITIVE MORPHOLOGY YES; Platelet Count 51 K/mm3 (150-450); RBC Distribution Width CV 28.5 % (11.6-14.6); RBC Distribution Width SD 68.1 fl (35.1-43.9); Red Blood Count 3.24 M/mm3 (4.6-6.2)
[2019-10-30 23:51] LABS: International Normalized Ratio 1.4
[2019-10-30 23:52] LABS: Partial Thromboplast Time 31.4 Seconds (24.1-36.2)
[2019-10-31] VITALS (10 sets, daily range): BP systolic 140–171; BP diastolic 69–94; PULSE 74–100; RESP 16–22; TEMP 36.3–36.8; O2SAT 94–100
[2019-10-31 00:06] LABS: ALB/GLOB Ratio 0.8 RATIO (0.9-2.4); AST(SGOT) 154 U/L (15-37); Alanine Aminotransfer ALT/SGPT 72 U/L (16-61); Albumin, Serum 2.5 g/dL (3.2-5.0); Alkaline Phosphatase 133 U/L (45-117); Anion Gap 9 (5-15); BUN 51 mg/dL (7-18); BUN/Creat Ratio 33.1 RATIO (10-20); Calcium,Total 9.4 mg/dL (8.5-10.1); Chloride 109 mmol/L (98-107); Creatinine, Serum 1.54 mg/dL (0.70-1.30); EST Glomerular Filtration Rate 46 mL/min (>60); Est Glom Filt Rate - Afr Amer 56 mL/min (>60); Estimated Creatinine Clearance 38.26 ml/min; Globulin 3.2 g/dL (2.2-4.2); Glucose 250 mg/dL (74-106); Lipase 395 U/L (73-393); Potassium 3.2 mmol/L (3.5-5.1); Protein, Total 5.7 g/dL (6.4-8.2); Sodium Level 146 mmol/L (136-145)
[2019-10-31] MEDS: Ondansetron 4 MG/2 ML Vial IV (00:09)
[2019-10-31] MEDS: Morphine 2 MG/ML Syringe IV (00:10)
--- NOTE | 2019-10-31 00:19 | CT_ITS ---
STUDY: CTA CHEST REASON FOR EXAM: Male, 79 years old. SOB, LEFT CHEST DISCOMFORT WITH BREATHING. RADIATION DOSAGE (If Supplied By Facility): CTDIvol = ( 11.92 ) mGy, DLP = ( 430.67 ) mGycm TECHNIQUE: The examination was performed with the intravenous administration of IV 100mL [id number]-[id number]. Post-processing of the angiographic images was performed, with multiplanar reformation and 3D reconstruction. Individualized dose optimization techniques were used for this CT. COMPARISON: None. FINDINGS: Normal enhancement of the main pulmonary artery and right and left pulmonary arteries. Normal enhancement of the bilateral peripheral pulmonary arteries. There is no demonstrated pulmonary embolism. Normal thoracic aorta and visualized great vessels. There is no demonstrated aortic dissection. Normal heart and pericardium. There is enlargement of the mediastinal and hilar lymph nodes the largest lymph node is in the aortopulmonic window measures approximately 5.7 x 3.4 cm.. Normal visualized trachea and bronchi. There is hyperinflation of the lungs consistent with chronic obstructive lung disease (COPD). There is a spiculated nodule within the right upper lobe measuring approximately 1.5 cm in size is indolent metastatic lesion. There is a large lobulated left hilar mass with atelectasis in the lingula and left upper lobe, perihilar mass is encasing the left pulmonary artery, measuring 6.8 x 4.9 x 6.6 cm in size. There is a small left pleural effusion. Normal chest wall structures. Normal osseous structures. Normal visualized upper abdomen. CT/CTA Chest W/WO Contrast IMPRESSION: No demonstrated pulmonary embolism or arterial dissection. There is hyperinflation of the lungs consistent with chronic obstructive lung disease (COPD). There is a spiculated nodule within the right upper lobe measuring approximately 1.5 cm in size is indolent metastatic lesion. There is a large lobulated left hilar mass with atelectasis in the lingula and left upper lobe, perihilar mass is encasing the left pulmonary artery, measuring 6.8 x 4.9 x 6.6 cm in size. There is a small left pleural effusion. There is enlargement of the mediastinal and hilar lymph nodes the largest lymph node is in the aortopulmonic window measures approximately 5.7 x 3.4 cm.. Electronically Signed: lEzbieta Mcdermott, at 1:21 EDT Tel , Service support ,
[2019-10-31 00:20] LABS: Differential Indicated MANUAL DIFF
--- NOTE | 2019-10-31 00:54 | ED.DCSUM_ITS ---
History of Present Illness Chief Complaint: Shortness of Breath Informant: Patient, Family, Car Lot Attendant Narrative: Patient presents the emergency department via EMS with a chief complaint of dyspnea. He states that couple weeks ago he was in the emergency department and was diagnosed with a new hilar left upper lobe mass. Apparently this had rapidly grown since his last imaging in June. He does have a history of lung cancer. He also notes COPD. He did a DuoNeb tonight before EMS arrived. He states it really made him call EMS was that he rolled over to turn the light off in bed and felt sharp chest pain on the left axillary ribs. He notes his leg swelling is chronic and is not changed. He is supposed to be seen in [place] by his oncologist next week. He notes a white thick phlegm that is difficult for him to expectorate. He denies any fevers. He reports that over the past few days he is had decreasing sleep. He denies orthopnea. Past Medical History - Allergies and Home Meds Allergies/Adverse Reactions: Allergies BEE STINGS Allergy (Severe, Uncoded 10/17/19 23:52) Anaphylaxis Primary Care Physician: Kevon Harrell MD [Primary Care Provider] - Surgical History: - - R hydrocele surgery, several basal cell CA skin removal, removal of cyst right knee. Smoking Status: Current every day smoker - Family History Maternal Family History: Family History (Last Reviewed 08/21/19 @ 11:[address] Chan Dee MD) Father Heart disease Hypertension CVA (cerebral vascular accident) Grandmother Cancer Grandfather CVA (cerebral vascular accident) Family History: Reports: COPD Paternal Family History: Family History (Last Reviewed 08/21/19 @ 11:[address] Chan Dee MD) Father Heart disease Hypertension CVA (cerebral vascular accident) Grandmother Cancer Grandfather CVA (cerebral vascular accident) Family History: Reports: Heart Disease, Hypertension, Stroke Review of Systems General: Denies: Chills, Fever, Sweats Eyes: Denies: Visual changes - bilaterally, Diplopia ENT: Denies: Rhinorrhea, Sore throat Cardiovascular: Reports: Chest pain. Denies: Palpitations Respiratory: Reports: Dyspnea, Cough, Sputum, Dyspnea on exertion Gastrointestinal: Denies: Abdominal pain, Nausea, Vomiting, Diarrhea, Melena, Hematochezia Genitourinary: Denies: Dysuria, Hematuria, Frequency Musculoskeletal: Denies: Back pain, Extremity Pain Skin: Denies: Rash, Wounds Neurological: Denies: Headache, Weakness, Numbness Physical Exam Vital Signs/Narrative: Vital Signs Temp Pulse Resp BP Pulse Ox 10/31/19 00:17 98.3 F 91 18 143/70 H 96 10/30/19 22:57 98.3 F 105 H 20 H 155/85 H 98 Inital Vital Signs reviewed: Yes General: Well nourished, Well developed, No Acute Distress Head: Normocephalic, Atraumatic Eyes: Perrl, EOMI ENT: Moist mucous membranes, No rhinorrhea Neck: Supple, Nontender Cardiovascular: Regular rate, No murmurs, Tachycardia Respiratory: No distress, Chest nontender, Rhonchi, Decreased Air Movement - Decreased air movement in the left upper lobe with rhonchi Abdomen: Soft, Nontender, Nondistended, Normal bowel sounds Back: Nontender, Normal Inspection Extremities: Nontender, No edema Skin: Normal color, No rash Neurological: Alert, Oriented x3, Cranial nerves II-XII grossly intact, Normal Strength, Normal Sensation Psychological: Normal affect, Normal Mood Diagnostic/Tx/Re-eval Clinical Impression(s) from Imaging Studies Chest X-Ray 10/30/19 23:10 IMPRESSION: Based on prior study since patient has left-sided lung cancer. However, this is not mentioned on the chest x-ray and therefore recommend correlation with history. Significant worsening of the left lung which is now diffusely opacified suggestive of pneumonia and atelectasis and possible postobstructive pneumonitis. Ill-defined left mid lung mass appears significantly larger. Electronically Signed: Gary Ellington MD at 23:49 EDT , Service support , Chest CTA 10/31/19 00:19 IMPRESSION: No demonstrated pulmonary embolism or arterial dissection. There is hyperinflation of the lungs consistent with chronic obstructive lung disease (COPD). There is a spiculated nodule within the right upper lobe measuring approximately 1.5 cm in size is indolent metastatic lesion. There is a large lobulated left hilar mass with atelectasis in the lingula and left upper lobe, perihilar mass is encasing the left pulmonary artery, measuring 6.8 x 4.9 x 6.6 cm in size. There is a small left pleural effusion. There is enlargement of the mediastinal and hilar lymph nodes the largest lymph node is in the aortopulmonic window measures approximately 5.7 x 3.4 cm.. 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 PACKER 10/30/19 23:30 Corrected WBC 10.6 K/mm3 (4.4-11.0) 10/30/19 23:30 RBC 3.24 M/mm3 (4.6-6.2) L 10/30/19 23:30 Hgb 7.5 g/dL (13.0-16.5) L 10/30/19 23:30 Hct 26.5 % (40-54) L 10/30/19 23:30 MCV 81.8 fL (80-94) 10/30/19 23:30 MCH 23.1 pg (27.0-32.0) L 10/30/19 23:30 MCHC 28.3 g/dL (32-36) L 10/30/19 23:30 RDW Std Deviation 68.1 fl (35.1-43.9) H 10/30/19 23:30 RDW Coeff of Gayle 28.5 % (11.6-14.6) H 10/30/19 23:30 Plt Count 51 K/mm3 (150-450) L 10/30/19 23:30 Neut % (Auto) Not Reportable 10/30/19 23:30 Absolute Neuts (auto) 6.7 X10^3/uL (2.0-7.7) 10/30/19 23:30 Absolute Lymphs (auto) 3.61 X10^3/uL (0.83-4.51) 10/30/19 23:30 Total Counted 100 (MANUAL DIFF) 10/30/19 23:30 Neutrophils % (Manual) 56 % (47-70) 10/30/19 23:30 Band Neutrophils % 7 % (0-5) H 10/30/19 23:30 Lymphocytes % (Manual) 34 % (19-41) 10/30/19 23:30 Monocytes % (Manual) 2 % (0-10) 10/30/19 23:30 Myelocytes % 1 (0-0) H 10/30/19 23:30 Nucleated RBCs/100 WBC 8 % (0-5) H 10/30/19 23:30 Diff Path Review September10/30/19 23:30 Platelet Estimate MOD DEC (ADEQ) 10/30/19 23:30 Polychromasia 1+ 10/30/19 23:30 Hypochromasia 2+ 10/30/19 23:30 Microcytosis 2+ 10/30/19 23:30 Acanthocytes (Spur) 2+ 10/30/19 23:30 Schistocytes 2+ H 10/30/19 23:30 PT 17.0 SECONDS (11.7-14.9) H 10/30/19 23:30 INR 1.4 10/30/19 23:30 APTT 31.4 Seconds (24.1-36.2) 10/30/19 23:30 Sodium 146 mmol/L (136-145) H 10/30/19 23:30 Potassium 3.2 mmol/L (3.5-5.1) L 10/30/19 23:30 Chloride 109 mmol/L (98-107) H 10/30/19 23:30 Carbon Dioxide 28.0 mmol/L (21.0-32.0) 10/30/19 23:30 Anion Gap 9 (5-15) 10/30/19 23:30 BUN 51 mg/dL (7-18) H 10/30/19 23:30 Creatinine 1.54 mg/dL (0.70-1.30) H 10/30/19 23:30 Estim Creat Clear Calc 38.26 ml/min 10/30/19 23:30 Est GFR (MDRD) Af Amer 56 mL/min (>60) L 10/30/19 23:30 Est GFR (MDRD) Non-Af 46 mL/min (>60) L 10/30/19 23:30 BUN/Creatinine Ratio 33.1 RATIO (10-20) H 10/30/19 23:30 Glucose 250 mg/dL (74-106) H 10/30/19 23:30 Lactic Acid 2.7 mmol/L (0.4-1.9) H* 10/31/19 05:08 Calcium 9.4 mg/dL (8.5-10.1) 10/30/19 23:30 Total Bilirubin 0.50 mg/dL (0.20-1.00) 10/30/19 23:30 AST 154 U/L (15-37) H 10/30/19 23:30 ALT 72 U/L (16-61) H 10/30/19 23:30 Alkaline Phosphatase 133 U/L (45-117) H 10/30/19 23:30 Troponin I 0.082 ng/mL (<0.045) H 10/30/19 23:30 B-Natriuretic Peptide 160.3 pg/mL (0-100) H 10/30/19 23:30 Total Protein 5.7 g/dL (6.4-8.2) L 10/30/19 23:30 Albumin 2.5 g/dL (3.2-5.0) L 10/30/19:30 Globulin 3.2 g/dL (2.2-4.2) 10/30/19 23:30 Albumin/Globulin Ratio 0.8 RATIO (0.9-2.4) L 10/30/19 23:30 Lipase 395 U/L (73-393) H 10/30/19 23:30 - EKG Initial EKG Interpretation: Sinus Tachycardia - EKG demonstrates a sinus tachycardia at a rate of 101. There are PACs noted. No concerning features of ACS. - Medical Decision Making Patient's chest x-ray is very concerning for postobstructive pneumonia due to the new lung mass. He started to receive IV fluids we gave a breathing treatment. His lactic acid interestingly enough came back at 4. He is not had any hypotension or hypoxia. He is perfusing normally. A CT angiogram of the chest was obtained to rule out pulmonary embolism due to his to his tachycardia shortness of breath chest pain and malignancy status. This was negative for pulmonary embolism. However atelectatic changes/pneumonia was present. Therefore blood cultures were obtained and he received Rocephin and azithromycin. The patient continued to receive IV fluids and a repeat lactic acid was down to 3. Had been in contact with [facility] and they requested a third lactic acid to help us ensure stability for a floor admission. The third lactic acid is down to 2.7. At this point we are waiting bed assignment to [facility] which I think is the most appropriate disposition for him. - Critical Care Time Critical care time (excluding procedures): 30-74 minutes - 31 minutes, Discussing w/Patient &/or Family/Harnessmaker Apprentice, Discussing w/Consultants, Arranging Admission or Transfer, Performing Direct Patient Care at Bedside ED Disposition - Plan for ED Patient: Disposition: [facility] - Main Diagnosis: Lung mass, Left upper lobe pneumonia, Septic shock, Prerenal azotemia, Anemia, Elevated troponin I level, Lymphedema of both lower extremities, Thrombocytopenia Referrals: Kevon Harrell MD [Primary Care Provider] -
[2019-10-31 00:59] LABS: Lymphocyte 34 % (19-41); Monocyte 2 % (0-10); Myelocyte 1 (0-0); Neutrophil-Band 7 % (0-5); Neutrophil-Segmented 56 % (47-70); Nucleated Red Bld Cells,Manual 8 % (0-5); Total Cells Counted 100 (MANUAL DIFF)
[2019-10-31 01:00] LABS: Acanthocytes 2+; Hypochromasia 2+; Microcytosis 2+; Polychromasia 1+; Schistocytes 2+
[2019-10-31] MEDS: 0.9% Normal Saline 1,000 ML 999 ML IV ×2 (01:16→03:59)
[2019-10-31] MEDS: Ipratropium/Albuterol Sulfate 3 ML AMPUL.NEB INHALATION (01:20)
[2019-10-31 01:39] LABS: BNP,B-Type NATRIURETIC PEPTIDE 160.3 pg/mL (0-100)
[2019-10-31] MEDS: Ceftriaxone 1 GM/50 ML BAG IV (01:45)
[2019-10-31 02:42] LABS: Corrected WBC 10.6 K/mm3 (4.4-11.0)
[2019-10-31 02:43] LABS: Absolute Neutrophil Count 6.7 X10^3/uL (2.0-7.7); Neutrophil # 6.68 X10^3/uL (2.7-7.7)
[2019-10-31 02:44] LABS: Absolute Lymphocyte Count 3.61 X10^3/uL (0.83-4.51); Lymphocyte # 3.61 X10^3/ul (4.0)
[2019-10-31 03:58] LABS: Reflex Lactate? Y
[2019-10-31 05:01] LABS: Platelet Estimate MOD DEC (ADEQ)
[2019-10-31 06:04] LABS: Lactic Acid 2.7 mmol/L (0.4-1.9)
--- NOTE | 2019-10-31 07:35 | ED.RN ---
chasidy kay from transport. arrival time is 90 min,.
[2019-10-31] MEDS: Pramipexole Di-HCl 0.25 MG Tablet PO (08:58)
[2019-10-31 11:49] LABS: Pathologist Review Reviewed
== END 2019-10-31 09:38 | disposition short-term general hospital (02) ==
PROVIDERS: Emergency Provider Emergency Medicine; PCP Family Medicine
DX: A41.9 Sepsis, unspecified organism (principal); R65.21 Severe sepsis with septic shock; J18.9 Pneumonia, unspecified organism; R91.8 Other nonspecific abnormal finding of lung field; D64.9 Anemia, unspecified; J44.0 Chronic obstructive pulmonary disease with (acute) lower respiratory infection; R79.89 Other specified abnormal findings of blood chemistry; D69.6 Thrombocytopenia, unspecified; Z85.118 Personal history of other malignant neoplasm of bronchus and lung; F17.200 Nicotine dependence, unspecified, uncomplicated
CPT/HCPCS: 71045; 71275; 80053; 83605; 83690; 83880; 84484; 85025; 85610; 85730; 87040; 93005; 94640; 96361; 96365; 96366; 96367; 96375; 99285; J7030; J7050; Q9967; A4216; J2405